=== PATIENT | female | born 1945 | race Caucasian/White ===

== ENCOUNTER → 2018-05-29 15:16 | Outpatient (CLI) | payer MEDICARE, SELFPAY ==
--- NOTE | 2018-05-29 15:18 | BI_ITS ---
MAMMOGRAPHY - BILATERAL SCREENING REASON FOR EXAM: Female, 72 years old. Routine annual screening examination. PERTINENT HISTORY: Sisters with breast cancer. TECHNIQUE: Digital bilateral breast erinn (3D mammographic acquisition) in the CC and MLO projections. 2-D mediolateral oblique (MLO) and craniocaudad (CC) views of both breasts were obtained. CAD: Full Field Digital Mammography with Computer Added Detection was performed. COMPARISON: Comparison is made with prior study dated November 13, 2016. FINDINGS: Breast Composition: There are scattered areas of fibroglandular density. There are no dominant masses or suspicious calcifications. No other significant abnormalities are identified. There has been no significant change since the prior study. BI/SCREENING MAMM (CAD), BILAT IMPRESSION: Stable bilateral screening mammogram. Yearly follow-up mammogram recommended. (A) ASSESSMENT CATEGORY: BIRADS Category 2: Benign. A letter regarding these results will be sent to the patient by the facility within 30 days. Approximately 10% of breast cancers are not detected by mammography. A normal mammogram should not delay biopsy of a clinically suspicious abnormality. [id number] Electronically Signed: Michael Dailey MD at 9:00 EST Tel [phone], Service support ,
--- OUTSIDE RECORDS SUMMARY | 2018-07-24 21:12 | XMS RPT_ITS | Continuity of Care Document ---
:1945 External Reference #:[id number] Author Organization [facility] Address [address] [address] [place] [address] Phone Care Team Providers Name Role Phone Serena Quiñonez CNP Unavailable Anette Connolly Unavailable Michael Duncan Unavailable Sienna ELLINGTON Logan Gómez Unavailable Slarb CREDIT CARD ANALYST, Cheryle Unavailable Unavailable Long CREDIT CARD ANALYST, Kalie L Unavailable Unavailable Unavailable Unavailable Problems Name Dates Details Abnormal TSH (R79.89, 790.6) Comments: TSH in Aug Status: Active Abortions/Miscarriages Comments: 1 miscarriage, 1st trimester Status: Active Acute sinusitis, unspecified (J01.90, 461.9) -Jul-2010 Status: Active Anxiety (F41.9, 300.00) Comments: use lorazepam prn Status: Active Blurry vision, bilateral (H53.8, 368.8) Comments: Will schedule appointment with opthamologist. Status: Active BMI 37.0-37.9, adult (Z68.37, V85.37) Status: Active Caregiver stress (Z63.6, V61.49) Status: Active CONSTIPATION NOS (K59.00, 564.00) Comments: stresshaving side effects of vesicare dry mouth, cant spit, cant have BM, was on vesicare, changed to detrol Status: Active Deliveries (Parity) Comments: 4 Status: Active Depressive disorder (F32.9, 311) Status: Active Elevated blood pressure reading (R03.0, 796.2) Status: Active Encounter for annual general medical examination with abnormal findings in adult (Z00.01, V70.0) Status: Active Encounter for Medicare annual wellness exam (Z00.00, V70.0) Status: Active Encounter for screening for malignant neoplasm of colon (Renamed from Special screening for malignant neoplasms, colon) (Z12.11, V76.51) Status: Active Encounter for screening mammogram for breast cancer (Renamed from Screening mammogram, encounter for) (Z12.31, V76.12) Status: Active Eyes sensitive to light (H53.149, 368.13) Status: Active Female cystocele (N81.10, 618.01) Status: Active FUNGUS, NOS Comments: rt great toe nail Status: Active GERD (gastroesophageal reflux disease) (K21.9, 530.81) Comments: on dexilant stable Status: Active Grieving (F43.21, 309.0) Status: Active Headache (R51, 784.0) Comments: resolving with massage and BP med Status: Active History of blood clots (Z86.718, V12.51) Status: Active History of pulmonary embolus (PE) (Z86.711, V12.55) Comments: would recommend xarelto 10mg po qd x12 start 6-10 hrs post-op once hemostatis established then extend days of xaralto post op will discuss with Dr. Hernandez Status: Active Hot flashes (N95.1, 627.2) Comments: rare Status: Active Hot flashes (N95.1, 627.2) Status: Active Hypercholesteremia (E78.00, 272.0) Status: Active Hypertension (I10, 401.9) Comments: usually good at home Status: Active Hypothyroidism (E03.9, 244.9) Comments: stable on synthroid 112mg daily Status: Active Impetigo (L01.00, 684) Status: Active Knee pain, bilateral (M25.561, 719.46) Comments: recent left knee surgery with hip pain and ongoing pain Status: Active Neck pain (M54.2, 723.1) Comments: history of ruptured disc, stenosis, oseteoarthritis of disc. Sees pain Dr. Coughlinhistory of ruptured disc Status: Active Nonsmoker (Z78.9, V49.89) Status: Active Nonsmoker (Z78.9, V49.89) Status: Active Obesity (E66.9, 278.00) Status: Active Osteoarthritis (M19.90, 715.90) Comments: stable on gabapentin seen at [facility] arthritis neck arthritis and knee pain , has seen Dr. Coughlin for neck pain for injectionwas seen at [facility] arthritis given gabapentinwas taking melox icam daily lead to gastric ulcer stopped meloxicam Status: Active Osteopenia (M85.80, 733.90) Status: Active Postmenopausal (Renamed from Postmenopausal status) (Z78.0, V49.81) Status: Active Pregnancies () Comments: 5 Status: Active Right leg swelling (M79.89, 729.81) Comments: elevate and support hose Status: Active Sore throat (J02.9, 462) Comments: strept negative her in office.willsend cx to confirm. told pt that. talk about may get worse with virall if not better in 7-10 days Status: Active Unspecified Diagnosis Status: Active Unspecified Diagnosis Status: Active Unspecified Diagnosis Status: Active Unspecified Diagnosis Status: Active Unspecified Diagnosis Status: Active Upper respiratory infection (J06.9, 465.9) Status: Active Urinary incontinence (R32, 788.30) Comments: stable on detrol 2mg bid Status: Active Wheezing (R06.2, 786.07) Status: Active Medications Name Dates Details Bacitracin Zinc 500 UNIT/GM External Ointment 1 (one) Application bid for 0 days Quantity: 4 {Applicator} Refills: 0 Ordered:24-Mar-2018 Serena Quiñonez CNP, CNP, Mary E Start : 24-Mar-2018 Active BusPIRone HCl 7.5 MG Oral Tablet 1 (one) Tablet bid for 0 days Quantity: 60 {Tablet} Refills: 1 Ordered:08-Apr-2018 Serena Quiñonez CNP, CNP, Mary E Start : 08-Apr-2018 Active Calcium 500 + D 500-125 MG-UNIT Oral Tablet 1 (one) Tablet Tablet daily for 0 days Quantity: 30 {Tablet} Refills: 0 Ordered:16-Oct-2017 Slarb Cheryle CRUM Start : 16-Nov-2016 Active LORazepam 1 MG Oral Tablet 1 (one) Tablet Tablet daily prn ONLY for 0 days Quantity: 30 {Tablet} Refills: 0 Ordered:08-Apr-2018 Olamide MARTINEZ, Serena Patton CNP, Serena Mcmanus Start : 08-Apr-2018 Active Comments:OARRS pdmkzumbR58.9f43.21Thirty Losartan Potassium 50 MG Oral Tablet 1 (one) Tablet daily for 30 days Quantity: 30 {Tablet} Refills: 6 Ordered:12-Feb-2018 Olamide MARTINEZ, Serena Patton CNP, Serena Mcmanus Start : 12-Feb-2018 End : 07-Jul-2017 Active MVI daily Active Synthroid 112 MCG Oral Tablet 1 Tablet hold on and Saturdays for 0 days Quantity: 30 {Tablet} Refills: 3 Ordered:13-Jan-2018 Olamide MARTINEZ, Serena Patton CNP, Serena Mcmanus Start : 13-Jan-2018 Active Comments:generic okay Tumeric daily Active VESIcare 10 MG Oral Tablet daily (10 MG) Active Comments:Rx by urology Xarelto 20 MG Oral Tablet 1 (one) Tablet Tablet take 1 6 hours prior to flight for 0 days Quantity: 2 {Tablet} Refills: 1 Ordered:10-Jan-2018 Long Kalie CRUM Start : 10-Jan-2018 Active ALEVE, 220MG (Oral Capsule) 1 (one) Capsule q8hrs prn for 0 days Quantity: 30 {Capsule} Refills: 0 Ordered:24-May-2014 RAMA Webster Start : 15-Mar-2014 End : 24-May-2014 Inactive ALIGN, 4MG (Oral Capsule) 1 Capsule daily for 0 days Quantity: 30 {Capsule} Refills: 0 Ordered:06-Aug-2013 RAMA Webster Start : 30-Mar-2013 End : 06-Aug-2013 Inactive ALTACE, 5MG (Oral Capsule) 1 qd for 0 days Refills: 0 Ordered:28-Sep-2011 Olamide MARTINEZ, Serena Patton CNP, Serena Mcmanus End : 28-Sep-2011 Inactive ASMANEX 30 METERED DOSES, 220MCG/INH (Inhalation Aerosol Powder Breath Activated) 2 puffs BID for 0 days Refills: 0 Ordered:17-Mar-2009 RAMA Webster End : 17-Mar-2009 Inactive BACTROBAN, 2% (External Ointment) 1 (one) Ointment Ointment bid for 0 days Quantity: 1 {Tube} Refills: 0 Ordered:16-Oct-2013 Abby Jones LPN Start : 06-Aug-2013 End : 16-Oct-2013 Inactive Biaxin 500 MG Oral Tablet 1 (one) Tablet Tablet BID for 10 days Quantity: 20 {Tablet} Refills: 0 Ordered:15-Aug-2016 Lupe CRUMCheryle Start : 15-Aug-2016 End : 25-Aug-2016 Inactive BIAXIN XL PAC, 500MG (Oral Tablet Extended Release 24 Hour) 2 (two) Tablet ER 24HR daily for 10 days Quantity: 20 {Tablet} Refills: 0 Ordered:09-Jun-2014 Brandishanamichelle MARTINEZ Serena Cabanmichelle MARTINEZ, Serena Mcmanus Start : 09-Jun-2014 End : 19-Jun-2014 Inactive CHONDROITIN SULFATE-VIT C-MN, 400-60-2.5MG (Oral Capsule) 1 (one) Capsule daily for 0 days Refills: 0 Ordered:17-Feb-2009 RAMA Webster Start : 17-Feb-2009 End : 17-Mar-2009 Inactive CIPROFLOXACIN HCL, 500MG (Oral Tablet) 1 (one) Tablet bid for 7 days Quantity: 14 {Tablet} Refills: 0 Ordered:27-Jun-2015 Jonathanmichelle MARTINEZ, Serena Patton MULTI SHARE PROGRAM COORDINATOR, Serena Mcmanus Start : 27-Jun-2015 End : 04-Jul-2015 Inactive CITRACAL/VITAMIN D, [id number] (Oral Tablet) 2 QD for 0 days Refills: 0 Ordered:03-Oct-2011 Abby Jones LPN End : 03-Oct-2011 Inactive CLARINEX REDITABS, 5MG (Oral Tablet Dispersible) 1 (one) Tablet Disperse daily for 0 days Quantity: 5 {Tablet_Disperse} Refills: 0 Ordered:06-Jul-2010 RAMA Webster Start : 05-Dec-2009 End : 06-Jul-2010 Inactive CORTISPORIN, 3.5-28243-5 (Otic Solution) 4 Solution Solution tid for 0 days Quantity: 1 {Bottle} Refills: 0 Ordered:16-Oct-2013 Abby Jones LPN Start : 11-Aug-2013 End : 16-Oct-2013 Inactive Cymbalta 30 MG Oral Capsule Delayed Release Particles 1 (one) Capsule Capsule PO Daily for 30 days Quantity: 30 {Capsule} Refills: 0 Ordered:30-Dec-2017 Annaleeambar JOHNSONBi Pinedaa Start : 30-Dec-2017 End : 29-Jan-2018 Inactive Detrol LA 2 MG Oral Capsule Extended Release 24 Hour 2 (two) Capsule ER 24HR qd for 30 days Quantity: 60 {Capsule} Refills: 0 Ordered:01-Oct-2017 Olamide MARTINEZ, Serena Patton CNP, Serena Mcmanus Start : 01-Oct-2017 End : 31-Oct-2017 Inactive DETROL LA, 4MG (Oral Capsule Extended Release 24 Hour) 1 Capsule ER 24HR qd for 0 days Quantity: 30 {Capsule_ER_24HR} Refills: 3 Ordered:26-Mar-2013 RAMA Webster Start : 18-Mar-2012 End : 26-Mar-2013 Inactive DEXILANT, 30MG (Oral Capsule Delayed Release) 1 (one) Capsule DR Capsule DR daily for 60 days Quantity: 30 {Capsule} Refills: 0 Ordered:14-Oct-2015 Olamide MARTINEZ, Serena Patton CNP, Serena Mcmanus Start : 14-Oct-2015 End : 13-Dec-2015 Inactive DOXYCYCLINE HYCLATE, 100MG (Oral Tablet Delayed Release) [address] bid for 7 days Quantity: 14 {Tablet_DR} Refills: 0 Ordered:30-Mar-2013 Olamide MARTINEZ, Serena Patton CNP, Serena Mcmanus Start : 30-Mar-2013 End : 06-Apr-2013 Inactive Comments:take with food ESCITALOPRAM OXALATE, 10MG (Oral Tablet) 1 (one) Tablet daily for 0 days Quantity: 90 {Tablet} Refills: 2 Ordered:15-Nov-2008 RAMA Webster Start : 15-Nov-2008 End : 17-Mar-2009 Inactive FISH OIL, 1000MG (Oral Capsule) 1 (one) Capsule daily for 0 days Refills: 0 Ordered:03-Oct-2011 Abby Jones LPN Start : 17-Feb-2009 End : 03-Oct-2011 Inactive FLEXERIL, 10MG (Oral Tablet) 1 Tablet q8hrs prn for 0 days Quantity: 30 {Tablet} Refills: 0 Ordered:20-Jun-2012 Abby Jones LPN Start : 30-Apr-2012 End : 20-Jun-2012 Inactive GABAPENTIN, 100MG (Oral Capsule) 1 -2 Capsule tid as needed for 30 days Refills: 0 Ordered:15-Aug-2015 Olamide MARTINEZ, Serena Wilks CNP Start : 27-Jun-2015 End : 27-Jul-2015 Inactive Comments:Medication taken as needed. GUAIATUSSIN AC, 100-10MG/5ML (Oral Syrup) 1 Syrup 1 tsp qhs as needed for 0 days Quantity: 6 {Ounce(s)} Refills: 0 Ordered:03-Nov-2012 AldochulaAstera Start : 29-Sep-2012 End : 03-Nov-2012 Inactive Comments:Medication taken as needed. HYDROCODONE-ACETAMINOPHEN, 5-325MG (Oral Tablet) 1 (one) Tablet q hs for 30 days Quantity: 30 {Tablet} Refills: 0 Ordered:18-Nov-2015 Olamide MARTINEZ, Serena Wilks CNP Start : 14-Oct-2015 End : 13-Nov-2015 Inactive LEVAQUIN, 500MG (Oral Tablet) 1 Tablet daily for 10 days Quantity: 10 {Tablet} Refills: 0 Ordered:01-Oct-2012 Olamide MARTINEZ, Serena Wilks CNP Start : 01-Oct-2012 End : 11-Oct-2012 Inactive Comments:void after 30 days LEXAPRO, 10MG (Oral Tablet) 1 Tablet QD for 0 days Quantity: 10 {Tablet} Refills: 0 Ordered:09-Jul-2011 RAMA Webster Start : 09-Jul-2011 End : 09-Jul-2011 Inactive LISINOPRIL, 10MG (Oral Tablet) 1 (one) Tablet(s) daily for 0 days Quantity: 30 {Tablet} Refills: 6 Ordered:28-Sep-2011 Olamide MARTINEZ, Serena Patton CNP, Serena Mcmanus Start : 10-May-2010 End : 28-Sep-2011 Inactive MOBIC, 7.5MG (Oral Tablet) 1 Tablet QD for 0 days Quantity: 14 {Tablet} Refills: 0 Ordered:15-Sep-2012 Kalie Crowe LPN Start : 15-Sep-2012 End : 15-Sep-2012 Inactive NABUMETONE, 750MG (Oral Tablet) 2 QD for 0 days Refills: 0 Ordered:17-Mar-2009 RAMA Webster End : 17-Mar-2009 Inactive NAPROSYN, 500MG (Oral Tablet) 1 Tablet daily once for 0 days Quantity: 30 {Tablet} Refills: 0 Ordered:28-Sep-2011 Branditim MICHELLE, Serena Patton MULTI SHARE PROGRAM COORDINATOR, Serena Mcmanus Start : 08-Aug-2010 End : 28-Sep-2011 Inactive NYSTOP, [id number]/GM (External Powder) Powder take as directed for 0 days Quantity: 1 {Powder} Refills: 0 Ordered:06-Jul-2010 RAMA Webster Start : 15-Apr-2009 End : 06-Jul-2010 Inactive PREDNISONE, 20MG (Oral Tablet) 1 Tablet bid x 2 days for 0 days Quantity: 4 {Tablet} Refills: 0 Ordered:03-Nov-2012 Millie Zimmer Start : 01-Oct-2012 End : 03-Nov-2012 Inactive PROVENTIL HFA, 108 (90 Base)MCG/ACT (Inhalation Aerosol Solution) 2 (two) Puff(s) QID/PRN for 0 days Quantity: 1 {Aerosol_Soln} Refills: 0 Ordered:20-Jun-2012 Abby Jones LPN Start : 05-Dec-2009 End : 20-Jun-2012 Inactive QNASL, 80MCG/ACT (Nasal Aerosol Solution) 2 (two) Puff(s) daily for 7 days Refills: 0 Ordered:15-Jul-2012 Branditim MICHELLE, Serena Patton MULTI SHARE PROGRAM COORDINATOR, Serena Mcmanus Start : 20-Jun-2012 End : 27-Jun-2012 Inactive TAMIFLU, 75MG (Oral Capsule) 1 (one) Capsule bid for 5 days Quantity: 10 {Capsule} Refills: 0 Ordered:05-Aug-2007 Dana Johnson Start : 05-Aug-2007 End : 11-Aug-2007 Inactive TERBINAFINE HCL, 250MG (Oral Tablet) 1 Tablet daily for 0 days Quantity: 30 {Tablet} Refills: 2 Ordered:20-Jun-2012 Abby Jones LPN Start : 16-Nov-2011 End : 20-Jun-2012 Inactive TOLTERODINE TARTRATE, 4MG (Oral Capsule Extended Release 24 Hour) 1 (one) Capsule ER 24HR daily for 0 days Quantity: 90 {Capsule_ER_24HR} Refills: 3 Ordered:15-Nov-2008 RAMA Webster Start : 15-Nov-2008 End : 17-Mar-2009 Inactive TYLENOL ARTHRITIS PAIN, 650MG (Oral Tablet Extended Release) 1 (one) Tablet ER q 4 hrs for 30 days Refills: 0 Ordered:18-Nov-2015 Olamide MARTINEZ, Serena Patton CNP, Serena Mcmanus Start : 14-Oct-2015 End : 13-Nov-2015 Inactive VESICARE, 5MG (Oral Tablet) 1 Tablet qd for 0 days Quantity: 30 {Tablet} Refills: 3 Ordered:09-Oct-2010 Abby Jones LPN Start : 18-Sep-2010 End : 09-Oct-2010 Inactive VICODIN, 5-500MG (Oral Tablet) 1 q4-6/PRN for 0 days Refills: 0 Ordered:17-Mar-2009 RAMA Webster End : 17-Mar-2009 Inactive VITAMIN C, 100MG (Oral Tablet Chewable) 1 QD for 0 days Refills: 0 Ordered:20-Jun-2012 Abby Jones LPN End : 20-Jun-2012 Inactive ALTACE, 5MG (Oral Capsule) 1 Capsule qd for 0 days Quantity: 30 {Capsule} Refills: 6 Ordered:10-Nov-2008 Olamide MULTI SHARE PROGRAM COORDINATOR, Serena Patton CNP, Serena Mcmanus Start : 10-Nov-2008 End : 10-Nov-2008 Discontinued ANTIVERT, 25MG (Oral Tablet) 1 Tablet q 8 hr prn for 0 days Quantity: 60 {Tablet} Refills: 0 Ordered:16-Nov-2011 Kim Guzman RN Start : 19-Jul-2011 End : 16-Nov-2011 Discontinued Comments:sixty Benzonatate 200 MG Oral Capsule 1 (one) Capsule tid as needed for 0 days Quantity: 30 {Capsule} Refills: 0 Ordered:02-Nov-2016 Cheryle Andrade LPN Start : 15-Aug-2016 End : 02-Nov-2016 Discontinued Comments:Medication taken as needed. BIAXIN XL, 500MG (Oral Tablet Extended Release 24 Hour) 2 (two) Tablet ER 24HR qd for 0 days Quantity: 20 {Tablet_ER_24HR} Refills: 0 Ordered:03-May-2008 Louise Trujillo Start : 03-May-2008 End : 18-Oct-2008 Discontinued Cheratussin AC 100-10 MG/5ML Oral Solution 1-2 Teaspoon q6hrs prn cough for 0 days Quantity: 6 {Ounce} Refills: 0 Ordered:02-Nov-2016 Cheryle Andrade LPN Start : 17-Aug-2016 End : 02-Nov-2016 Discontinued COUMADIN, 1MG (Oral Tablet) 1 Tablet UAD for 0 days Quantity: 30 {Tablet} Refills: 5 Ordered:18-Oct-2008 Olamide MARTINEZ, Serena Patton CNP, Bren Start : 18-Oct-2008 End : 18-Oct-2008 Discontinued Comments:disp.#100 with3 refills COUMADIN, 2MG (Oral Tablet) 11/2 Tablet QD for 0 days Quantity: 30 {Tablet} Refills: 5 Ordered:11-Nov-2008 Olamide MARTINEZ, Serena Patton CNP, Bren Start : 11-Nov-2008 End : 11-Nov-2008 Discontinued Dexilant 60 MG Oral Capsule Delayed Release [address] Capsule DR daily for 0 days Quantity: 21 {Capsule} Refills: 0 Ordered:02-Nov-2016 Cheryle Andrade LPN Start : 13-Jul-2016 End : 02-Nov-2016 Discontinued DOXYCYCLINE HYCLATE, 100MG (Oral Capsule) Capsule BID for 0 days Quantity: 28 {Capsule} Refills: 0 Ordered:11-Mar-2008 Dana Johnson Start : 11-Mar-2008 End : 03-May-2008 Discontinued FLUOXETINE HCL, 20MG (Oral Capsule) 1 Capsule qd for 0 days Quantity: 30 {Capsule} Refills: 3 Ordered:27-Jun-2015 Cheryle Andrade LPN Start : 28-Mar-2015 End : 27-Jun-2015 Discontinued LAC-HYDRIN, 12% (External Cream) Cream bid for 0 days Quantity: 1 {Cream} Refills: 3 Ordered:27-May-2007 Dana Johnson Start : 27-May-2007 End : 11-Mar-2008 Discontinued MELOXICAM, 7.5MG (Oral Tablet) 1 (one) Tablet daily for 0 days Quantity: 30 {Tablet} Refills: 0 Ordered:15-Dec-2014 Cheryle Andrade LPN Start : 11-May-2014 End : 15-Dec-2014 Discontinued Comments:take with food MOBIC, 15MG (Oral Tablet) 1 Tablet qd prn for 0 days Quantity: 30 {Tablet} Refills: 3 Ordered:02-Mar-2015 Cheryle Andrade LPN Start : 21-Feb-2015 End : 02-Mar-2015 Discontinued Comments:with food MUCINEX ALLERGY, 180MG (Oral Tablet) 1 (one) Tablet daily for 0 days Quantity: 30 {Tablet} Refills: 0 Ordered:15-Feb-2015 Cheryle Andrade LPN Start : 15-Dec-2014 End : 15-Feb-2015 Discontinued MULTIVITAMIN (PO Chew Tab) 1 QD for 0 days Refills: 0 Ordered:20-Jun-2012 Abby Jones LPN End : 20-Jun-2012 Discontinued Comments:This order discontinued per [facility]. OXYCODONE HCL, 5MG (Oral Tablet) 1 (one) Tablet q8hrs prn for 0 days Quantity: 30 {Tablet} Refills: 0 Ordered:27-Jun-2015 Cheryle Andrade LPN Start : 09-Mar-2015 End : 27-Jun-2015 Discontinued PredniSONE 10 MG Oral Tablet 1 (one) Tablet 1 bid x 3 days, 1 daily x 3 days, 1/2 x3 days for 0 days Quantity: 12 {Tablet} Refills: 0 Ordered:02-Nov-2016 Cheryle Andrade LPN Start : 17-Aug-2016 End : 02-Nov-2016 Discontinued Comments:with food PRILOSEC, 20MG (Oral Capsule Delayed Release) 1 (one) Capsule DR daily for 0 days Quantity: 30 {Capsule} Refills: 0 Ordered:02-Mar-2015 Cheryle Andrade LPN Start : 15-Feb-2015 End : 02-Mar-2015 Discontinued ProAir HFA 108 (90 Base) MCG/ACT Inhalation Aerosol Solution 2 (two) Puff(s) tid prn for 0 days Quantity: 1 {Inhaler} Refills: 0 Ordered:02-Nov-2016 Cheryle Andrade LPN Start : 17-Aug-2016 End : 02-Nov-2016 Discontinued PROZAC, 20MG (Oral Capsule) 1 Capsule daily for 30 days Quantity: 30 {Capsule} Refills: 6 Ordered:15-Dec-2014 Cheryle Andrade LPN Start : 20-Feb-2013 End : 15-Dec-2014 Discontinued TESSALON PERLES, 100MG (Oral Capsule) 1 (one) Capsule tid for 0 days Quantity: 30 {Capsule} Refills: 0 Ordered:11-Aug-2007 Dana Johnson Start : 11-Aug-2007 End : 06-Nov-2007 Discontinued TOPICORT, 0.25% (External Cream) 1 (one) Cream bid for 0 days Quantity: 1 {Tube} Refills: 0 Ordered:02-Nov-2014 Slarb CREDIT CARD ANALYST, Cheryle Start : 30-Jun-2014 End : 02-Nov-2014 Discontinued TYLENOL WITH CODEINE #3, 300-30MG (Oral Tablet) 1 (one) Tablet q6-8 hrs prn for 0 days Quantity: 30 {Tablet} Refills: 0 Ordered:27-Jun-2015 Slarb CREDIT CARD ANALYST, Cheryle Start : 11-Mar-2015 End : 27-Jun-2015 Discontinued TYLENOL, 325MG (Oral Tablet) 1 PRN for 0 days Refills: 0 Ordered:27-Jun-2015 Slarb CREDIT CARD ANALYST, Cheryle Start : 02-Mar-2015 End : 27-Jun-2015 Discontinued Allergies and Adverse Reactions Name Dates Details Darvocet-N 100 *ANALGESICS - OPIOID* (Allergy) Status: Active Comments: Nausea Penicillins (Allergy) Status: Active Sulfa Drugs (Allergy) Status: Active Past Medical History Name Dates Details Abdominal pain (R10.9, 789.00) Comments: epigastric, rt upper and left flank Status: Resolved as of 12-Jul-2015 Abdominal pain, acute, left lower quadrant (R10.32, 789.04) Comments: think related to cellulitis but Dr. jules wanted me to check for vein clot in abd Status: Inactive as of 01-Dec-2008 Abdominal pain, acute, right upper quadrant (R10.11, 789.01) Status: Inactive as of 24-May-2014 Abnormal blood chemistry (R79.9, 790.6) Status: Inactive as of 26-Mar-2013 Allergic rhinitis due to other allergen (J30.89, 477.8) Status: Resolved as of 12-Jul-2015 Benign paroxysmal positional vertigo (H81.10, 386.11) Status: Inactive as of 26-Mar-2013 BMI 37.0-37.9, adult (Z68.37, V85.37) Status: Inactive as of 16-Oct-2017 BMI 38.0-38.9,adult (Z68.38, V85.38) Status: Inactive as of 16-Oct-2017 BMI 40.0-44.9, adult (Z68.41, V85.41) Status: Inactive as of 16-Oct-2017 Bronchitis (J40, 490) Status: Inactive as of 26-Mar-2013 Cellulitis (L03.90, 682.9) Comments: right abd with abcess--looks better some on atb, may need to reopen if regress into another abcess right now better Status: Inactive as of 01-Dec-2008 Cough (R05, 786.2) Status: Inactive as of 26-Mar-2013 Cough (R05, 786.2) Comments: remains on biaxinhistory if PE Status: Resolved as of 02-Nov-2016 Cramp in lower leg (R25.2, 729.82) Status: Inactive as of 12-Jul-2015 Dizziness and giddiness (R42, 780.4) Status: Inactive as of 26-Mar-2013 Elevated d-dimer (R79.89, 790.92) Status: Inactive as of 12-Jul-2015 Epigastric abdominal tenderness (R10.816, 789.66) Comments: likely gastritis Status: Inactive as of 02-Nov-2016 Epigastric Pain (R10.13, 789.06) Comments: severegave GI cocktail with some partial relief Status: Inactive as of 24-May-2014 External otitis of right ear (H60.91, 380.10) Status: Inactive as of 12-Jul-2015 Fatigue (R53.83, 780.79) Status: Resolved as of 12-Jul-2015 Flank pain (R10.9, 789.09) Status: Resolved as of 12-Jul-2015 Flank pain (R10.9, 789.09) Status: Inactive as of 12-Jul-2015 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 consider ENT if worsen Status: Inactive as of 01-Dec-2008 Gastric ulcer (K25.9, 531.90) Status: Resolved as of 12-Jul-2015 Gastritis (K29.70, 535.50) Comments: mild followed by Dr. Laguna. Status: Inactive as of 02-Nov-2016 Gastritis, acute (K29.00, 535.00) Status: Inactive as of 26-Mar-2013 Headache (R51, 784.0) Comments: migraine vs muscle strain Status: Inactive as of 12-Jul-2015 Hypertension (I10, 401.9) Status: Resolved as of 12-Jul-2015 Influenza due to influenza A virus with upper respiratory signs (J11.1, 487.1) Comments: suspect Flu will empiracally treat Status: Resolved as of 16-Dec-2008 Itching (L29.9, 698.9) Status: Inactive as of 24-May-2014 Knee pain (M25.569, 719.46) Comments: Not improving, get MRIslipped on floor 6 wks ago, went to ER, stillwith pain and pain med 3x day, not improving Status: Inactive as of 26-Mar-2013 Knee pain, right (M25.561, 719.46) Comments: on Rt knee Status: Inactive as of 12-Jul-2015 Lesion of external auditory canal (H61.90, 380.9) Comments: only been few days hopefully pimple healing or scrap. will treat with bactroban not better in 2 week then to ENT Status: Inactive as of 12-Jul-2015 Limb pain (M79.609, 729.5) Status: Inactive as of 24-May-2014 senior care (current) use of anticoagulants (Z79.01, V58.61) Status: Inactive as of 26-Mar-2013 Myalgia and myositis (729.1) Comments: resolved Status: Inactive as of 12-Jul-2015 Nausea (R11.0, 787.02) Status: Inactive as of 02-Nov-2016 Neoplasm of uncertain behavior of skin (D48.5, 238.2) Status: Inactive as of 06-Aug-2013 Other and unspecified disorders of circulatory system (I99.9, 459.9) Status: Inactive as of 26-Mar-2013 Other chest pain (R07.89, 786.59) Status: Inactive as of 12-Jul-2015 Other chest pain (R07.89, 786.59) Comments: resolved on naproxan, with relief was not using muscle relaxantcardiac tests negchest mid sternal neck back pain resolved Status: Inactive as of 26-Mar-2013 Other pulmonary embolism and infarction (I26.99, 415.19) Status: Inactive as of 16-Dec-2008 Other seborrheic keratosis (L82.1, 702.19) Comments: reassurrance Status: Inactive as of 16-Dec-2008 Other specified disorders of skin (L98.8, 709.8) Status: Inactive as of 26-Mar-2013 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 (C44.390, 173.39) Status: Inactive as of 26-Mar-2013 Other specified viral infection, in conditions classified elsewhere and of unspecified site (B97.89, 079.89) 10-May-2010 Status: Inactive as of 26-Mar-2013 Preop examination (Z01.818, V72.84) Comments: for left knee replacement TKA Status: Inactive as of 02-Nov-2016 Rash (R21, 782.1) Comments: ? contact dermatitis vs shingles will try steroid cream Status: Inactive as of 12-Jul-2015 Screening for deficiency anemia (Z13.0, V78.1) Status: Inactive as of 26-Mar-2013 Screening for hyperlipidemia (Z13.220, V77.91) Status: Inactive as of 26-Mar-2013 Sinusitis, chronic (J32.9, 473.9) Status: Resolved as of 02-Nov-2016 Skin irritation (R23.8, 709.9) Comments: from removal os skin tag Status: Inactive as of 06-Aug-2013 SOB (shortness of breath) on exertion (R06.02, 786.05) Status: Inactive as of 26-Mar-2013 superficial thrombophlebitis Comments: pt feeel did best asa not coumadin. been very active. working. still some pain in right leg. will come off coumadin to asa 2 325mg a day. if worsen then will go to high dose coumadin. Status: Resolved as of 16-Dec-2008 Syncope (R55, 780.2) Status: Inactive as of 05-Aug-2006 Toe pain, left (M79.675, 729.5) Status: Inactive as of 12-Jul-2015 Unspecified Diagnosis Status: Inactive as of 26-Mar-2013 Unspecified Diagnosis Status: Inactive as of 26-Mar-2013 Unspecified Diagnosis Status: Inactive as of 01-Dec-2008 Unspecified Diagnosis Status: Inactive as of 01-Dec-2008 Unspecified Diagnosis Status: Inactive as of 26-Mar-2013 Unspecified menopausal and perimenopausal disorder (N95.9, 627.9) Status: Inactive as of 12-Jul-2015 Urinary incontinence, unspecified type (R32, 788.30) Status: Inactive as of 26-Mar-2013 UTI symptoms (R39.9, 788.99) Status: Inactive as of 12-Jul-2015 Wheeze (R06.2, 786.07) Status: Resolved as of 02-Nov-2016 WWV V70.0 Status: Inactive as of 01-Dec-2008 Procedures Procedure Dates Details Appendectomy Completed Colonoscopy Completed Comments: 09/02 Hysterectomy; Abdominal Completed Knee Replacement, Total Completed Comments: Left Aug [address] Michele Sigmoidoscopy Completed Comments: 05/01 Date Value Details 13-Nov-2016 Dexa Bone Density Study (HP) Result: Comments: See Note; NOTES: [facility] Imaging Services [address] [place] [address] Ver[place] 4d Dexa Bone Density Study (HP) MR#: [id number] Acct: [id number] Name: EVENS SERRANO Rep #: [id number] : 1945 F 71 From: Michael Noland MD PCP: Serena Quiñonez Status: [facility] Study: Dexa Bone Density Study (HP) Date of Exam: 11/13/16 Exam# [id number] Ordering Dr: Kyle Quiñonez STUDY: DUAL ENERGY X-RAY ABSORPTIOMETRY / DXA REASON FOR EXAM: Female, 71 years old. Early menopause. Loss of height. TECHNIQUE: Bone Mineral Density (BMD) measurements of lumbar spine and bilat eral hips were obtained. COMPARISON: None. FINDINGS: Lumbar Spine (L1-L4): g/cm2 (1.315) / T-score (1.2) / Z-score (3.0) Findings are suggestive of normal bone den sity with a low fracture risk. Left Femur Total: g/cm2 (0.934) / T-score (-0.6) / Z-score (1.0) Left Femoral Neck: g/cm2 (0.781) / T-score (-1.9) / Z-score (0.0) Right Femur Total: g/cm2 (1.030) / T-sc ore (0.2) / Z-score (1.8) Right Femoral Neck: g/cm2 (0.870) / T-score (-1.2) / Z-score (0.6) HPBD/Dexa Bone Density Study (HP) IMPRESSION: The pa tient is considered osteopenic at the level of the femoral neck as outlined below according to World Ronaldo Organization (WHO) criteria with a moderate fracture risk. Reference Information: The T-score is the number of standard deviations above or below the standard which is normal for young adults at their peak bone mineral density. The World Health Organization ( WHO) interprets the T-scores as follows: Above -1 Normal bone density Between -1 and -2.5 Osteopenia Equal to / or below -2.5 Osteoporosis As a practical clinical guideline, osteopenia may be graded a s follows: Mild -1 through -1.5 Moderate -1.6 through -2.0 Severe -2.1 through -2.4 The Z-score is the number of standard deviations above or below age- matched controls. A Z-score of less than -1.5 wou ld be considered abnormal. References: 1. NIH Osteoporosis and Related Bone Diseases http://www.osteo.org 2. International Society for Clinical Densitometry http://www.iscd.org 3. National Osteoporosis Foundation http://www.nof.org Electronically Signed: Michael Noland MD at 7:57 EDT Tel [phone], Service support , CC: Serena Ciesa [employer] Boat Captain: Signed 13-Nov-2016 SCREENING MAMM (CAD), BILAT Result: Comments: See Note; NOTES: [facility] Imaging Services [address] [place] [address] Demian 4d SCREENING MAMM (CAD), BILAT MR#: [id number] Acct: [id number] Name: TRINI SERRANO Rep #: [id number] : 1945 F 71 From: Michael Noland MD PCP: Serena Quiñonez Status: REG CLI Study: SCREENING MAMM (CAD), BILAT Date of Exam: 11/13/16 Exam# [id number] Ordering Dr: Yudith Quiñonez y MAMMOGRAPHY - BILATERAL SCREENING REASON FOR EXAM: Female, 71 years old. Routine annual screening examination. PERTINENT HISTORY: Non-contributory. TECHNIQUE: Digital bilateral breast erinn (3D ma mmographic acquisition) in the CC and MLO projections. 2-D mediolateral oblique (MLO) and craniocaudad (CC) views of both breasts were obtained. CAD: Full Field Digital Mammography with Computer Added D etection was performed. COMPARISON: None. Baseline examination. FINDINGS: Breast Composition: There are scattered areas of fibroglandular density. There are no dom inant masses or suspicious calcifications. Scattered benign appearing bilateral calcifications. No other significant abnormalities are identified. 36 HPBI/SCREENING MAMM (CAD), BILAT IMPRESSION: Negative screening mammogram. Yearly followup mammogram recommended. (A) ASSESSMENT CATEGORY: BIRADS Category 2: David ign. A letter regarding these results will be sent to the patient by the facility within 30 days. Approximately 10% of breast cancers are not detected by mammography. A normal mammogram should not alejandra y biopsy of a clinically suspicious abnormality. [id number] Electronically Signed: Michael Noland MD at 8:11 EDT Tel [phone], Service support , CC: Serena Quiñonez [employer] Boat Captain: Signed 17-Aug-2016 Chest PA and Lateral Result: Comments: See Note; NOTES: [facility] Imaging Services [address] [place] [address] Verdana 4d Chest PA and Lateral MR#: [id number] Acct: [id number] Name: MAURICIO SERRANO p #: [id number] : 1945 F 71 From: Michael Nolnad MD PCP: Micki Cruz MD Status: REG CLI Study: Chest PA and Lateral Date of Exam: 08/17/16 Exam# [id number] Ordering Dr: Serena Quiñonez STUDY: X-RAY CHEST REASON FOR EXAM: Female, 71 years old. Fever cough and chest congestion. TECHNIQUE: PA and lateral views of the chest. COMPARISON: None. FINDINGS: T he lungs are clear and expanded. Scattered calcified granulomas. There is no demonstrated pleural abnormality. Normal size heart. Normal mediastinum and nadia. Normal visualized pulmonary arteries. Norm al visualized aortic arch and descending thoracic aorta. There are mild degenerative changes of the visualized thoracic spine. Normal visualized ribs, clavicles, and shoulders. There is no demonstrate d abnormality of the visualized soft tissue structures of the upper abdomen. RAD/Chest PA and Lateral IMPRESSION: No acute abnormality is seen. Electronically Signed: Michael Noland MD at 14:44 EST Tel [phone], Service support [phone], CC: Serena Quiñonez; Micki Cruz MD [employer] Boat Captain: Signed 03-Oct-2015 PT D/C Summary (1) Result: Comments: See Note; NOTES: [facility] [address] [place] [address] Fax REHABILITATION SE [facility] DISCHARGE SUMMARY MR#: [id number] Acct: [id number] Name: MAURICIO SERRANO Rep #: [id number] : 1945 70 From: Bolivar PERRINT, OCS, CSCS Referring Dr.: OUT OF TOWN DOCTOR Status: REG RCR Eval Date: Discharge Date: HP - PT D/C Summary It has been my pleasure to treat MAURICIO SERRANO under orders from Out [facility] Doctor, SARATH HERNANDEZ for the diagnosis of L Knee TKA f or a total of 15 visit(s). Please see the following information for a summary of their discharge status. - Subjective Subjective: Doc says doing well. No pain today. Feels like pins at times. Good ROM. Exercises at home 3x/week. Working hard and activities close to normal. Stopped using cane out and about recently and doing OK. No falls. Steps are going well. Taking meds at night to sleep. Paty dy to be done with PT. - Pain L knee pain Pain Intensity (Out of 10): 3 - Objective Objective/Function: 0-110 AROM L knee. gait is good without deviations. steps reciprocally with one rail. - Goals Goal 1:: 0-110 AROM L knee to facilitate steps adn function. Goal Progress: Progressing Goal 2:: Pain in L knee 0-1/10 at all times. Goal Progress: Goal Met Goal 3:: Walk in community wit hoout need for AD. Goal Progress: Goal Met Goal 4:: Sleep without waking due to pain Goal Progress: with meds Goal 5:: Pt feel back to all basic ADLs and community ambulation without limitations Go al Progress: Goal Met - Plan Plan: D/C to pool and HEP. - D/C Information Discharge Comments: D/C to pool and HEP. Doing well. If there are questions or concerns regarding this patient's physical therapy, please feel free to call me at [phone]. Thank you for the referral of this patient. Sincerely, Bolivar Newell <Electronically signed by Bolivar Newell DPT, OCS, CSCS> 10/14 0646 CC: SARATH HERNANDEZ; Micki Cruz MD; OUT OF TOWN DOCTOR EBG Signed 09-Sep-2015 Re-Evaluation - PT (1) Result: Comments: See Note; NOTES: [facility] [address] [place] [address] Fax REEVALUATION / ME DICARE RECERTIFICATION [place] 4d PHYSICAL THERAPY MR#: [id number] Acct: [id number] Name: MAURICIO SERRANO Rep #: [id number] : 1945 70 From: Bolivar Newell DPT, OCS, CSCS Referring DrPaxton: SHAHNAZ Knox [facility] DOCTOR Status: REG RCR Insurance: TheySay Out of [facility] Doctor, SARATH HERNANDEZ It has been my pleasure to treat MAURICIO SERRANO over the last 11 visits for L Knee TKA. Please see the progress note below for an update on the physical therapy plan of care! Subjective: Stiff causes discomfort but not painful lately. Had pain at 4/10 yesterday. Climbed steps yesterday for the first time and slep 9 hours last night. Basic ADLs are OK, shoes on without shoehorn today. Cooked meals and did laundry with a little increased time today. Sitting at desk is uncom fortable. Objective/Function: steps reciprocally with two rails and weak and stiff on R but can do it. 0 -101 degrees AROM. gait is good and without deviations, using cane for short distances. Weaknes s noted on steps with eccentric control and stiffness on steps is obvious. Plan Plan: Pt wishes to work herself in pool for next two weeks and then f/u with PT despite my encouragement that 2 more w eeks would be idea. I emphasized knee ROM, stretching and scar massage as well as strengthening in the pool and on the steps. Will f/u in 2-3 weeks to ensure progress. Goals Goal 1:: 0-110 AROM L kn ee to facilitate steps adn function. Goal Time Frame: 4-6 Weeks Goal Progress: Progressing Goal 2:: Pain in L knee 0-1/10 at all times. Goal Time Frame: 4-6 Weeks Goal Progress: Progressing Goal 3 :: Walk in community withoout need for AD. Goal Time Frame: 4-6 Weeks Goal Progress: Progressing Goal 4:: Sleep without waking due to pain Goal Time Frame: 4-6 Weeks Goal Progress: Progressing Goa l 5:: Pt feel back to all basic ADLs and community ambulation without limitations Goal Time Frame: 4-6 Weeks Goal Progress: Progressing Anticipated Interventions Patient/Client Instruction: Educate patient on: Condition, Plan of Care Comments: HEP, management of condition, Therapeutic Exercise to Include: Strength training, Flexibilty training, Gait and locomotor training, Passive ROM, Active ROM Manual Therapy Techniques to Include: Mobilization, Soft tissue mobilization Comment: as needed STM and patellar mobs Cryotherapy (ice pack, ice massage): Yes - L knee Please do not hesitate to contact me at [phone] by phone or if you have questions or concerns regarding this new plan of care! Sincerely, Bolivar Newell <Electronically signed by Bolivar Newell DPT, OCS, CSCS> 09/09/15 0653 CC: SARATH HERNANDEZ; Micki Cruz MD; OUT OF TOWN DOCTOR EB Signed For Medicare only, by signing this I certify the plan of ca re. Physicians Signature Date 18-Aug-2015 Discharge Instruction Result: Comments: See Note; NOTES: [facility] Medical Records Department [address] [place] [address] Discharge Instruction 08/14/152021 MR#: [id number] Acct: [id number] Name: KRISTAQIMAURICIO Rep #: [id number] : 1945 70 From: Logan Keen MD PCP: Micki Cruz MD Status: DEP ER ED Disposition - Plan for ED Patient: Chief Complaint: Lower Extremity Injury Instructions: ED Dyspnea What to do if you have Problems For any increased pain, shortness of breath, bleeding, nausea or vomiting, chest pain, or any unexpected problems, contact your do ctor. Call [facility] ([phone]) or report to the closest Emergency Room. Call 911 if necessary. 08/18/15 0746 <Electronically signed by Logan Keen MD> Date ____ Logan Keen MD Cosigner Signature (If Indicated): Date CC: Micki Cruz MD 18-Aug-2015 Emergency Department Summary Result: Comments: See Note; NOTES: [facility] Medical Records Department [address] [place] [address] Emergency Department Summary MR#: [id number] Acct: [id number] Name: MAURICIO SERRANO Rep #: [id number] : 1945 70 From: Logan Keen MD PCP: Micki Cruz MD Status: DEP ER DATE OF SERVICE: 08/14/2015 CHIEF COMPLAINT: Shortness of breath, leg swelling. HISTORY OF PRESENT ILLNESS: A 70-year-old female who is 5 days status post left total knee repair done at [facility], presents with shortness of breath and leg swelling. The patient states she has bee n in normal state of health. She has been on a subQ Lovenox for DVT prophylaxis after her surgery. States she laid down, woke up and noticed that her lower extremity was swollen more than usual and t hen she started to have some shortness of breath and rattling in her chest. She states she had similar symptoms 5 years ago after her right knee repair and was found to have a pulmonary embolus. She i s concerned that this may have been the recurrence. She has been compliant with Lovenox, has not missed any doses. She denies fevers or chills. She denies any chest pain. PHYSICAL EXAMINATION: ANA LUISA L SIGNS: Afebrile. Vitals unremarkable. GENERAL: Well-appearing female in no acute distress. HEENT: Head is normocephalic, atraumatic. Pupils are equal, round and reactive. Extraocular muscles intact . NECK: Supple. HEART: Regular rate and rhythm. LUNGS: Diminished in the bases. ABDOMEN: Soft, nontender, nondistended. EXTREMITIES: 2+ edema of the left lower extremity. Postoperative site is cameron n, dry and intact. There is some old blood, but no erythema. No evidence of cellulitis. There are no palpable cords. The patient has normal pulses. EMERGENCY DEPARTMENT COURSE: The patient is on th erapeutic Lovenox. My suspicion for PE or DVT is very low, but she has had recurrent PE with prior surgery. She was complaining of dyspnea, so I did do a CTA of her chest. Screening labs were obtained and were unremarkable. CTA shows no evidence of large pulmonary embolus. Given the Lovenox and lack of pulmonary embolus, I do not feel further investigation as needed for DVT. At this time, I feel t his is all postoperative edema. The patient is comfortable with plan of care and will be discharged to follow up with orthopedic surgeon as scheduled. Return with any worsening symptoms. IMPRESSION: 1. Dyspnea, status post surgery. 2. Postoperative wound check. DISPOSITION: Discharge. Logan Keen MD T: NTS JOB: [id number] 08/18/15 0746 <Electronically signed by Logan stovall MD> Date Logan Keen MD Cosigner Signature (If Indicated): Date CC: Micki christine MD Date Dictated: 08/14/152021 Date Transcribed: 08/14/152021 Ocean [employer]am Boat Captain: Signed 14-Aug-2015 CTA Chest W/WO Contrast Result: Comments: See Note; NOTES: [facility] Imaging Services [address] [place] [address] Verdana 4d CTA Chest W/WO Contrast MR#: [id number] Acct: [id number] Name: MAURICIO DORAN Rep #: [id number] : 1945 F 70 From: Sandy Lundberg MD PCP: Micki Cruz MD Status: REG ER Study: CTA Chest W/WO Contrast Date of Exam: 08/14/15 Exam# [id number] Ordering Dr: Logan Velasquez MD STUDY: CTA CHEST REASON FOR EXAM: Female, 70 years old. Postop knee surgery on Saturday. RADIATION DOSAGE (If Supplied By Facility): CTDIvol = ( 17.89 ) mGy, DLP = ( 645.75 ) mGycm TECHNIQUE: The examination was performed with the intravenous administration of 100ml ml of Isovue 370 contrast material. Post-processing of the angiographic images was performed, with multiplanar reformation and 3D reconstruction. COMPARISON: None. FINDINGS: Cardiac monitoring leads are present. There is limited enhancement of the main pulmonary arter y and right and left pulmonary arteries. There is limited enhancement of the bilateral peripheral pulmonary arteries. There is no demonstrated pulmonary embolism. There is atherosclerotic tortuosit y of the aortic arch and descending thoracic aorta. There is no demonstrated aortic dissection. Normal heart and pericardium. There are visualized mediastinal lymph nodes, which are within normal size limits, and with normal morphology. Normal hilar regions. Normal visualized trachea and bronchi. The lungs are well expanded. There is minimal bilateral basilar dependent atelectasis. The mauricio gs are otherwise clear. Normal pleura. Normal chest wall structures. Normal osseous structures. Normal visualized upper abdomen. IMPRESSION: 1. No CTA d emonstrated pulmonary embolism or arterial dissection. Electronically Signed: Sandy Lundberg MD at 20:03 EST , Service support [phone], CC: Germaine Cruz MD; Logan Keen MD [employer] Boat Captain: Signed 12-Aug-2015 Inital Evaluation (1) - PT Result: Comments: See Note; NOTES: [facility] [address] [place], [place] [id number] Fax REHABILITATION SE [facility] INITIAL EVALUATION MR#: [id number] Acct: [id number] Name: MAURICIO SERRANO Rep #: [id number] : 1945 70 From: Bolivar Newell DPT, OCS, CSCS Referring Dr.: OUT OF TOWN DOCTOR Status: REG RCR Insurance: A-TEX Date: Patient's Visit Information MAURICIO SERRANO is a 70 year old F, referred to Physical Therapy by Out of Town Doctor, ERENDIRA HERNANDEZ, with a diagnosis of L Knee TKA. Date of Evaluation: 08/11/15 Physical Therapist: Bolivar Newell - Visit Plan Frequency: 3x /Week Duration: 4-6 Weeks - Subjective Subjective: 2 days ago had L TKA at [facility] by Dr. Salazar. Had bone on bone in knee. R one was done 5 yrs ago. Went home last night and lives with . Walking with wh walker. Used it prior to surgery due to mm spasms but no rmall does not use it. Has two steps to enter and using Right leg and holds onto walker. Dressing self except for shoes but takes time. Has a ceramic tiler to get socks and pick things up off floor. Sleep: G ood last night b/c didn't sleep the first night. 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 Was exercising at pool three days at , gaining weight lately due to knee pain. Hobbies include tennis but stopped due to knee pain, Enjoys family and needs to keep up with grandchilden. HEP: AP, HS, QS. - Pain L knee pain Pain Intensity (Out of 10): 8 Pain Intensity Range: 2, 8 Comment: harder to get comfortable - Objective Gait with wh walker I, decent knee flexion and toe off. Slow and mildly antalgic on L. Transfer to fro chair I on elevated walk, wouldn't try low chair today. Min A needed on L leg to sup ine and up fro supine via L sidelie. R knee AROM 0-105, L knee is 0-58 actively and 62 Passive in supine, 65 in sitting. Unable to SLR I. Hip AROM WFL B. Ankle AROM i s I but slower on L, strength at 4/5 in ankles. 4- in L hip, 4 in R hip. L knee not tested. L anterior incision is dressed, no signs of excessive redness heat or swelling. L leg is edematous and firm to touch. - Homans. Able to stand and take a few steps without walker today, short slow hesitant steps. - Goals Goal 1:: 0-110 AROM L knee to facilitate steps adn function. Goal Time Frame: 4-6 Weeks Goal 2:: Pain in L knee 0-1/1 0 at all times. Goal Time Frame: 4-6 Weeks Goal 3:: Walk in community withoout need for AD. Goal Time Frame: 4-6 Weeks Goal 4:: Sleep without waking due to pain Goal Time Frame: 4-6 Weeks Goal 5:: Pt feel back to all basic ADLs and community ambulation without limitations Goal Time Frame: 4-6 Weeks - Rehabilitation Potential Physical Therapy Diagnosis: s/p L knee TKA Rehabilitation Potentia l: Good - Anticipated Interventions Patient/Client Instruction: Educate patient on: Condition, Plan of Care Comments: HEP, management of condition, For the Purpose of:: To decrease pain, To decreas e swelling/inflammation, To improve ability of physical actions for home/community/work/leisure Therapeutic Exercise to Include: Strength training, Flexibilty training, Gait and locomotor training, Pa ssive ROM, Active ROM For the Purpose of:: To improve muscle performance and motor function, To improve ability of physical actions for home/community/work/leisure, To improve gait and locomotor funct ions Manual Therapy Techniques to Include: Mobilization, Soft tissue mobilization Comment: as needed STM and patellar mobs For the Purpose of:: To decrease swelling/inflammation, To increase ROM Cry otherapy (ice pack, ice massage): Yes - L knee For the Purpose of:: To decrease pain Thank you for the opportunity to evaluate your patient. For Medicare and Medicare HMO plans, please review e plan of care and approve it. It will need to be FAXED BACK to us at [phone] for Medicare purposes. Please let me know if there are questions or concerns regarding this plan of care. Physic carlo Signature: Date: <Electronically signed by Bolivar Newell DPT, OCS, CSCS> 08/12/15 0642 CC: SARATH HERNANDEZ; Micki shea MD; OUT OF TOWN DOCTOR EBG Signed For Medicare only, by signing this I certify the plan of care. Physicians Signature Date 12-Jul-2015 ELECTROCARDIOGRAM, COMPLETE (ECG) ([id number]) Comments: sinus rhythm within normal limits Result: [MEASUREMENTS ANALYSIS] Date of Test: 07/12/2015 13:50:06; Heart Rate: 72; MO Interval: 146; QRS: 90; QT Interval: 392; Corrected QT Interval (QTc): 413; P Wave Seeley: 47; QRS Wave Seeley: 20; T Wave Seeley: 51; Blood Pressure: 122/80 [ECG DIAGNOSTIC STATEMENTS] Date of Test: 07/12/2015 13:50:06; Summary: Sinus Rhythm WITHIN NORMAL LIMITS 30-Jun-2015 Abdomen/Pelvis without Cont Result: Comments: See Note; NOTES: [facility] Imaging Services [address] [place] [address] Verdana 4d Abdomen/Pelvis without Cont MR#: [id number] Acct: [id number] Name: MAURICIO SERRANO Germaine Rep #: [id number] : 1945 F 69 From: Bella Meade MD PCP: Micki Cruz MD Status: REG CLI Study: Abdomen/Pelvis without Cont Date of Exam: 06/30/15 Exam# [id number] Alexia england Dr: Serena Quiñonez STUDY: CT ABDOMEN AND PELVIS WITHOUT CONTRAST REASON FOR EXAM: Female, 69 years old. LT FLANK PAIN, NO PREV HX KS, NO HEMATURIA, NO PREV SURG RADIATION DOSAGE (If Supplied By Facility): CTDIvol = ( 30.33 ) mGy, DLP = ( 1885.66 ) mGycm TECHNIQUE: Transaxial images were obtained from the dome of the diaphragm to the symphysis pubis without oral contrast, and without intrav enous contrast. Sagittal and coronal images were reconstructed. COMPARISON: CT - Abdomen/Pelvis - 18:18 FINDINGS: The visualized lung bases are unr emarkable. The visualized portions of the heart are within normal limits. There is decreased attenuation of the liver consistent with steatosis. Normal gallbladder and extrahepatic biliary system. N ormal spleen. Normal pancreas. Normal bilateral adrenal glands. Normal right kidney. Normal left kidney. Normal visualized stomach. Normal small intestine. There are multiple colonic diverticula consistent with diverticulosis. The appendix is visualized and appears normal. Normal abdominal aorta. Normal inferior vena cava. Normal retroperitoneum. Normal urinary bladder. There is a smal l umbilical hernia containing fat. There are diffuse degenerative changes of the visualized lumbar spine. IMPRESSION: There is a small umbilical hernia containin g fat. Electronically Signed: Natanael Meade MD at 10:49 EST Tel , Service support [phone], CC: Serena Quiñonez; Micki Cruz MD [employer] Captain: Signed 17-Feb-2015 Abdomen/Pelvis WITH Contrast Result: Comments: See Note; NOTES: [facility] Imaging Services [address] [place] [address] CAT Scan Report MR#: [id number] Acct: [id number] Name: MAURICIO SERRANO Rep #: [id number] : 1945 F 69 From: Gerald Persaud DO PCP: Micki Cruz MD Status: REG CLI Study: Abdomen/Pelvis WITH Contrast Date of Exam: 02/17/15 Exam# [id number] Ordering Dr: Micki Cruz MD [facility] DY: CT ABDOMEN AND PELVIS WITH CONTRAST REASON FOR EXAM: Female, 69 years old. Mid to lower abdominal pain. RADIATION DOSAGE (If Supplied By Facility): CTDIvol = ( 24.86 ) mGy, DLP = ( 3087.53 ) mG ycm TECHNIQUE: Transaxial images were obtained from the dome of the diaphragm to the symphysis pubis with oral contrast. 100 ml of Isovue 300 contrast was administered. Sagittal and coronal images w ere reconstructed. COMPARISON: None. FINDINGS: The visualized lung bases are unremarkable. The visualized portions of the heart are within normal limits. Nor mal liver. Normal gallbladder and extrahepatic biliary system. Normal spleen. Normal pancreas. Normal bilateral adrenal glands. Normal right kidney. Normal left kidney. There is circumferential w all thickening of the stomach, most pronounced in the greater curvature. This can related to underdistention or inflammatory or infiltrative process. Normal small intestine. There are multiple coloni c diverticula consistent with diverticulosis. There are surgical clips in the region of the appendix consistent with a prior appendectomy. Normal abdominal aorta. Normal inferior vena cava. Normal r etroperitoneum. Normal urinary bladder. There is absence of the uterus consistent with a prior hysterectomy. There is a small umbilical hernia containing fat. There are diffuse degenerative change s of the visualized lumbar spine. IMPRESSION: 1. Appearance of wall thickening of the stomach, most pronounced in the greater curvature, unsure if this is relate d to underdistention versus inflammatory or infiltrative process. Consider upper GI to further evaluate versus endoscopy. 2. Mild chronic diverticulosis. Patient is status post appendectomy. 3. Sm all fat-containing umbilical hernia. Electronically Signed: Gerald Persaud DO at 19:10 EDT Tel , Service support [phone], CC: Micki Cruz MD [employer] Captain: Signed 02-Nov-2014 Chest WITH Contrast Result: Comments: See Note; NOTES: [facility] Imaging Services [address] [place] [address] CAT Scan Report MR#: [id number] Acct: [id number] Name: MAURICIO SERRANO Rep #: [id number] : 1945 F 69 From: Michael Noland MD PCP: Micki Cruz MD Status: REG CLI Study: Chest WITH Contrast Date of Exam: 11/02/14 Exam# [id number] Ordering Dr: Serena Quiñonez STUDY: CTA CHEST REASON FOR EXAM: Female, 69 years old. Shortness of breath and chest pain. Elevated d-dimer. RADIATION DOSAGE (If Supplied By Facility): CTDIvol = ( 17.05 ) mGy, DLP = ( 643.93 ) mGycm ASHLEIGH HNIQUE: The examination was performed with the intravenous administration of 100ML ml of Isovue 370 contrast material. Post-processing of the angiographic images was performed, with multiplanar refor mation and 3D reconstruction. COMPARISON: Comparison is made with prior study dated December 06, 2009. FINDINGS: Normal enhancement of the main pulmonary artery and right and left pulmonary arteries. Normal enhancement of the bilateral peripheral pulmonary arteries. There is no demonstrated pulmonary embolism. Normal thoracic aorta and visualized great vessels . There is no demonstrated aortic dissection. Normal heart and pericardium. Normal mediastinum. Normal hilar regions. Normal visualized trachea and bronchi. The lungs are well expanded. Normal pulmonary parenchyma. Normal pleura. Normal chest wall structures. There are mild degenerative changes of thoracic spine. Normal visualized upper abdomen. IMPRESSION: Normal CTA chest examination, without a demonstrated pulmonary embolism or arterial dissection. Electronically Signed: Michael Noland MD at 15:54 EDT Tel [phone], Service support [phone], CC: Serena Quiñonez; Micki Cruz MD [employer]: Signed 15-Mar-2014 Toe(s) Min 2 Views Result: Comments: See Note; NOTES: [facility] Imaging Services [address] [place] [address] Radiology Report MR#: [id number] Acct: [id number] Name: MAURICIO SERRANO Rep #: [id number] : 1945 F 68 From: Romaine Tafoya DO PCP: Micki Cruz MD Status: REG CLI Study: Toe(s) Min 2 Views Date of Exam: 03/15/14 Exam# [id number] Ordering Dr: Serena Quiñonez STUDY: X-RAY LEFT FOOT, SECOND TOE REASON FOR EXAM: Female, 68 years old. Smashed toe into chair one week ago. TECHNIQUE: 30 view(s) of the toe was obtained. COMPARISON: None. FINDINGS: Normal visualized metatarsus. Normal metatarsophalangeal (M.T.P) joint. Normal interphalangeal joints. Normal phalanges and interphalangeal joints. The soft tissue structures are unrema rkable. The remainder of the toes are grossly unremarkable. IMPRESSION: No acute abnormality of the left second toe. Electronically Signed: Romaine Tafoya DO 2 at 16:54 EDT Tel [phone], Service support [phone], RAD/Toe(s) Min 2 Views IMPRESSION: No acute abnormality of the left second toe. Electron ically Signed: Romaine Tafoya DO at 16:54 EDT Tel [phone], Service support [phone], CC: Serena Quiñonez; Micki Cruz MD [employer] Captain: Signed 15-Feb-2014 Spine Cervical without Contras Result: Comments: See Note; NOTES: [facility] Imaging Services [address] [place] [address] CAT Scan Report MR#: [id number] Acct: [id number] Name: MAURICIO SERRANO Rep #: [id number] : 1945 F 68 From: Michael Noland MD PCP: Micki Cruz MD Status: REG CLI Study: Spine Cervical without Contras Date of Exam: 02/15/14 Exam# [id number] Ordering Dr: Micki Cruz MD STUDY: CT CERVICAL SPINE WITHOUT CONTRAST REASON FOR EXAM: Female, 68 years old. Severe neck pain with tingling in both arms. RADIATION DOSAGE (If Supplied By Facility): CTDIvol = ( 61.59 ) mG y, DLP = ( 1130.74 ) mGycm TECHNIQUE: High resolution transaxial imaging was performed without contrast material. Sagittal and coronal images were reconstructed. COMPARISON: None FINDINGS: Normal craniovertebral junction. Normal anterior atlantoaxial articulation. Normal odontoid process. Normal cervical lordosis. Normal vertebral bodies and posterior o sseous elements. C2-3: Normal endplates. Normal disc height and morphology. There is evidence of facet joint osteoarthritis and hypertrophy on the left side. This causes mild left neural foraminal stenosis. C3-4: Normal endplates. Normal disc height and morphology. There is hypertrophy of the left facet joint with osteoarthritis. No significant stenosis is seen. C4-5: Mild degree of anterio r listhesis of C4 on C5. There is hypertrophy of the facet joint on the left side. This leads to mild degree of left neural foraminal stenosis. C5-6: Moderate degree of disc space narrowing with spo ndylosis. Is also evidence of uncovertebral osteoarthrosis and mild facet joint osteoarthritis. Is a mild degree of bilateral neural foraminal stenosis. C6- 7: Marked degree of disc space narrowing a nd spondylosis. There is evidence of facet joint osteoarthritis. C7-T1: Normal endplates. Normal disc height and morphology. Normal central canal and intervertebral neuroforamina. Normal visualize d soft tissue structures. IMPRESSION: Multilevel degenerative changes, as described above. Electronically Signed: Michael Noland MD at 14:08 E DT Tel [phone], Service support [phone], CC: Micki Cruz MD [employer] Captain: Signed 11-Feb-2014 Cerv Spine 4 or 5 Views Result: Comments: See Note; NOTES: [facility] Imaging Services [address] [place] [address] Radiology Report MR#: [id number] Acct: [id number] Name: MAURICIO SERRANO Rep #: [id number] : 1945 F 68 From: Julio Charles DO PCP: Micki Cruz MD Status: REG CLI Study: Cerv Spine 4 or 5 Views Date of Exam: 02/11/14 Exam# [id number] Ordering Dr: Serena Quiñonez STUDY: X-RAY - C ERVICAL SPINE REASON FOR EXAM: Female, 68 years old. Whiplash, pain TECHNIQUE: 5 view(s) of the cervical spine were obtained. COMPARISON: None FINDINGS: Nor mal anterior atlantoaxial articulation. There is a questionable lucency through the base of the odontoid process. Straightening of the cervical lordosis. Mild degenerative changes of the vertebral b odies with spurring at the endplates of C5, C6, and C7. Minimally narrowed C5- 6 and C6-7 disc space heights. Minimal spondylolisthesis at C4-5. Minimal uncovertebral spurring slightly narrowing the l eft C5-6 and C6-7 intervertebral neuroforamina. The soft tissue structures are unremarkable. IMPRESSION: Mild degenerative changes of the lower cervical spine. Questionable lucency through the base of the odontoid. A nondisplaced fracture cannot be excluded. Correlation with CT if clinically indicated. Electronically Signed: Julio Chalres DO at 19 :48 EDT Tel [phone], Service support [phone], CC: Serena Quiñonez; Micki Cruz MD [employer]: Signed 09-Oct-2013 Knee 4 or More Views Result: Comments: See Note; NOTES: [facility] Imaging Services [address] [place] [address] Radiology Report MR#: [id number] Acct: [id number] Name: MAURICIO SERRANO Rep #: [id number] : 1945 F 68 From: Romaine Tafoya DO PCP: Micki Cruz MD Status: REG CLI Study: Knee 4 or More Views Date of Exam: 10/09/13 Exam# [id number] Ordering Dr: Serena Quiñonez STUDY: X-RAY - R IGHT KNEE REASON FOR EXAM: Female, 68 years old. Swelling of the knee. TECHNIQUE: 4 view(s) of the knee. COMPARISON: None. FINDINGS: There is a total knee r eplacement. The prosthetic components are intact and articulate normally with each other. There is no evidence of loosening from the underlying bone. There is no evidence of osseous fracture or dest ructive osseous pathology. The soft tissue structures are unremarkable. There is no visualized joint effusion. IMPRESSION: Right knee arthroplasty without evid ence of acute abnormality. Electronically Signed: Romaine Tafoya DO at 19:01 EDT Tel [phone], Service support [phone], CC: Serena Quiñonez; Micki Cruz MD [employer] Captain: Signed 03-Sep-2013 Hepatobilliary Imaging Result: Comments: See Note; NOTES: [facility] Imaging Services [address] [place] [address] Nuclear Medicine Report MR#: [id number] Acct: [id number] Name: MAURICIO SERRANO Rep #: [id number] : 1945 F 68 From: Gene Diallo DO PCP: Micki Cruz MD Status: REG CLI Study: Hepatobilliary Imaging Date of Exam: 09/03/13 Exam# [id number] Ordering Dr: Catalina Daly DO CLINICAL: 68-year-old female with reported history of abdominal pain. RADIONUCLIDE HEPATOBILIARY SCINTIGRAPHY COMPARISON: Abdominal ultrasound report 08/27/13 FINDINGS: Following the intrave nous administration of 5.1 mCi of Tc Mebrofenin, hepatobiliary images reveal: 1. Relatively prompt and homogeneous radiopharmaceutical concentration is noted by a normal sized liver. No parenchymal defects are identified. 2. Gallbladder activity is identified at 10 minutes post radiopharmaceutical administration. 3. Small intestinal tract is not visualized during 60 minutes of pre-CCK image ac quisition. Small bowel is observed following cholecystokinin injection. 4. Washout of the radiopharmaceutical by the hepatic parenchyma appears qualitatively normal. Cholecystokinin (0.02 ug/kg) wa s administered intravenously over a 30-minute period. The post CCK gallbladder ejection fraction calculated at 20 minutes following Cholecystokinin administration was noted to be 94 % (normal greater than 35%). During 30 minutes of post CCK imaging, there is no scintigraphic evidence of reflux of the radiotracer into the common hepatic duct or refilling of the gallbladder. IMPRESSION: 1. MALIA L 99m Tc Mebrofenin hepatobiliary imaging examination with Cholecystokinin. A. A gallbladder ejection fraction calculated to be greater than 35% following the administration of Cholecystokinin makes the probability of functional hepatobiliary disease (gallbladder and/or sphincter of Oddi dyskinesia) and/or organic hepatobiliary disease (chronic acalculous cholecystitis and/or cystic duct syndro me) to be low. (Breezy Hitchcock al, Journal of Nuclear Medicine 32:1695, 1991). Electronically Signed: Gene Diallo M.D. at 7:07 EST , Service support [phone], Fa x [phone] CLINICAL: 68-year-old female with reported history of abdominal pain. RADIONUCLIDE HEPATOBILIARY SCINTIGRAPHY COMPARISON: Abdominal ultrasound report 08/27/13 FINDINGS: Followi ng the intravenous administration of 5.1 mCi of Tc Mebrofenin, hepatobiliary images reveal: 1. Relatively prompt and homogeneous radiopharmaceutical concentration is noted by a normal sized liver. N o parenchymal defects are identified. 2. Gallbladder activity is identified at 10 minutes post radiopharmaceutical administration. 3. Small intestinal tract is not visualized during 60 minutes of pre -CCK image acquisition. Small bowel is observed following cholecystokinin injection. 4. Washout of the radiopharmaceutical by the hepatic parenchyma appears qualitatively normal. Cholecystokinin ( 0.02 ug/kg) was administered intravenously over a 30-minute period. The post CCK gallbladder ejection fraction calculated at 20 minutes following Cholecystokinin administration was noted to be 94 % ( normal greater than 35%). During 30 minutes of post CCK imaging, there is no scintigraphic evidence of reflux of the radiotracer into the common hepatic duct or refilling of the gallbladder. IMPRESS ION: 1. NORMAL 99m Tc Mebrofenin hepatobiliary imaging examination with Cholecystokinin. A. A gallbladder ejection fraction calculated to be greater than 35% following the administration of Cholecy stokinin makes the probability of functional hepatobiliary disease (gallbladder and/or sphincter of Oddi dyskinesia) and/or organic hepatobiliary disease (chronic acalculous cholecystitis and/or cyst ic duct syndrome) to be low. (Breezy Hitchcock al, Journal of Nuclear Medicine 32:1695, 1990). Electronically Signed: Gene Diallo M.D. at 7:08 EST , Service support , CC: Micki Cruz MD; Catalina Daly DO [employer]: Signed 27-Aug-2013 Gallbladder Result: Comments: See Note; NOTES: [facility] Imaging Services [address] [place] [address] Ultrasound Report MR#: [id number] Acct: [id number] Name: MAURICIO SERRANO Rep #: [id number] : 1945 F 68 From: Michael Noland MD PCP: Micki Cruz MD Status: REG CLI Study: Gallbladder Date of Exam: 08/27/13 Exam# [id number] Ordering Dr: Catalina Daly DO STUDY: AB DOMINAL ULTRASOUND - RIGHT UPPER QUADRANT REASON FOR VISIT: Female, 68 years old. Mid abdominal pain. TECHNIQUE: Ultrasound evaluation of the right upper quadrant was performed with real-time and s tatic coates-scale imaging. TECHNICAL QUALITY: Limited. Examination limited due to a combination of factors including obesity and bowel gas. COMPARISON: None. F INDINGS: Liver: The liver measures 15.4 cm. There is normal echogenicity of the liver. The bile ducts are within normal limits. There is hepatic color flow. The direction of portal flow is hepatopet al. There is no demonstrated mass lesion. Gallbladder: Normal distended gallbladder. The gallbladder wall measures 0.9 mm. There is a negative sonographic Barboza's sign. There is no pericholecystic fluid. There are no gallstones. Common Bile Duct (C.B.D.): The common bile duct measures 4.5 mm. Pancreas: Normal size of the head, body and tail of the pancreas. There is increased echogenicity o f the pancreas. There is no demonstrated pancreatic mass or cyst. Right Kidney: Normal size of the right kidney. The right kidney measures 9.6 cm. Normal renal cortex. The right cortex measures 1.3 cm. There is no demonstrated renal mass or cyst. There is no right hydronephrosis. IMPRESSION: Normal right upper quadrant ultrasound examination. Electronical ly Signed: Michael Noland M.D. 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 Comments: 11/16/11 Status: Active Smoking Status Name Dates Details Never smoker Vital Signs Date Test Result Details :52 Temperature 96.3 f Comments: Method: Temporal Pulse 58 /min Comments: Pattern: Regular Respiration Rate 16 /min Comments: Pattern: Unlabored O2 SAT 98 % Comments: Room air BP Systolic 132 mm[Hg] Comments: Patient Position: Sitting; Cuff Location: Left Arm; Cuff Size: Standard BP Diastolic 70 mm[Hg] Comments: Patient Position: Sitting; Cuff Location: Left Arm; Cuff Size: Standard Weight 210.25 lb Height 63 in Body Mass Index Calculated 37.24 kg/m2 Body Surface Area Calculated 1.98 m2 :20 Temperature 97.5 f Pulse 77 /min Comments: Pattern: Regular Respiration Rate 18 /min Comments: Pattern: Unlabored O2 SAT 99 % Comments: Room air BP Systolic 130 mm[Hg] Comments: Patient Position: Sitting; Cuff Location: Left Arm; Cuff Size: Standard BP Diastolic 82 mm[Hg] Comments: Patient Position: Sitting; Cuff Location: Left Arm; Cuff Size: Standard Weight 210.25 lb Height 63 in Body Mass Index Calculated 37.24 kg/m2 Body Surface Area Calculated 1.98 m2 :37 Temperature 97.4 f Pulse 71 /min Comments: Pattern: Regular Respiration Rate 16 /min Comments: Pattern: Unlabored O2 SAT 97 % Comments: Room air BP Systolic 162 mm[Hg] Comments: Patient Position: Sitting; Cuff Location: Left Arm; Cuff Size: Standard BP Diastolic 86 mm[Hg] Comments: Patient Position: Sitting; Cuff Location: Left Arm; Cuff Size: Standard Weight 210.25 lb Height 63 in Body Mass Index Calculated 37.24 kg/m2 Body Surface Area Calculated 1.98 m2 :06 Temperature 97.4 f Pulse 68 /min Comments: Pattern: Regular Respiration Rate 18 /min Comments: Pattern: Unlabored O2 SAT 98 % Comments: Room air BP Systolic 130 mm[Hg] Comments: Patient Position: Sitting; Cuff Location: Left Arm; Cuff Size: Standard BP Diastolic 86 mm[Hg] Comments: Patient Position: Sitting; Cuff Location: Left Arm; Cuff Size: Standard Weight 210.25 lb Height 63 in Body Mass Index Calculated 37.24 kg/m2 Body Surface Area Calculated 1.98 m2 :53 Temperature 97.8 f Pulse 75 /min Comments: Pattern: Regular Respiration Rate 16 /min Comments: Pattern: Unlabored O2 SAT 99 % Comments: Room air BP Systolic 136 mm[Hg] Comments: Patient Position: Sitting; Cuff Location: Left Arm; Cuff Size: Standard BP Diastolic 84 mm[Hg] Comments: Patient Position: Sitting; Cuff Location: Left Arm; Cuff Size: Standard Weight 210.25 lb Height 63 in Body Mass Index Calculated 37.24 kg/m2 Body Surface Area Calculated 1.98 m2 :47 Temperature 97.2 f Pulse 66 /min Comments: Pattern: Regular Respiration Rate 17 /min Comments: Pattern: Unlabored O2 SAT 97 % Comments: Room air BP Systolic 150 mm[Hg] Comments: Patient Position: Sitting; Cuff Location: Left Arm; Cuff Size: Standard BP Diastolic 84 mm[Hg] Comments: Patient Position: Sitting; Cuff Location: Left Arm; Cuff Size: Standard Weight 210.25 lb Height 63 in Body Mass Index Calculated 37.24 kg/m2 Body Surface Area Calculated 1.98 m2 :28 Comments: Dr Stone does eye exam, has upcoming appt with glaucoma screening. Temperature 97.7 f Pulse 68 /min Comments: Pattern: Regular Respiration Rate 17 /min Comments: Pattern: Unlabored O2 SAT 96 % Comments: Room air BP Systolic 122 mm[Hg] Comments: Patient Position: Sitting; Cuff Location: Left Arm; Cuff Size: Standard BP Diastolic 80 mm[Hg] Comments: Patient Position: Sitting; Cuff Location: Left Arm; Cuff Size: Standard Weight 210.25 lb Height 63 in Body Mass Index Calculated 37.24 kg/m2 Body Surface Area Calculated 1.98 m2 :06 Temperature 98.7 f Pulse 72 /min Comments: Pattern: Regular Respiration Rate 17 /min Comments: Pattern: Unlabored O2 SAT 96 % Comments: Room air BP Systolic 122 mm[Hg] Comments: Patient Position: Sitting; Cuff Location: Left Arm; Cuff Size: Standard BP Diastolic 82 mm[Hg] Comments: Patient Position: Sitting; Cuff Location: Left Arm; Cuff Size: Standard Weight 210.25 lb Height 63 in Body Mass Index Calculated 37.24 kg/m2 Body Surface Area Calculated 1.98 m2 [id number] Temperature 97 f Pulse 85 /min Comments: Pattern: Regular Respiration Rate 17 /min Comments: Pattern: Unlabored O2 SAT 96 % Comments: Room air BP Systolic 120 mm[Hg] Comments: Patient Position: Sitting; Cuff Location: Left Arm; Cuff Size: Standard BP Diastolic 80 mm[Hg] Comments: Patient Position: Sitting; Cuff Location: Left Arm; Cuff Size: Standard Weight 213 lb Height 63 in Body Mass Index Calculated 37.73 kg/m2 Body Surface Area Calculated 1.99 m2 :50 Temperature 97.4 f Pulse 70 /min Comments: Pattern: Regular Respiration Rate 16 /min Comments: Pattern: Unlabored O2 SAT 99 % Comments: Room air BP Systolic 124 mm[Hg] Comments: Patient Position: Sitting; Cuff Location: Left Arm; Cuff Size: Standard BP Diastolic 82 mm[Hg] Comments: Patient Position: Sitting; Cuff Location: Left Arm; Cuff Size: Standard Weight 217 lb Height 63 in Body Mass Index Calculated 38.44 kg/m2 Body Surface Area Calculated 2 m2 :07 Temperature 98.6 f Comments: Method: Tympanic Pulse 88 /min Comments: Pattern: Regular Respiration Rate 18 /min Comments: Pattern: Unlabored O2 SAT 98 % Comments: Room air BP Systolic 120 mm[Hg] Comments: Patient Position: Sitting; Cuff Location: Left Arm; Cuff Size: Standard BP Diastolic 64 mm[Hg] Comments: Patient Position: Sitting; Cuff Location: Left Arm; Cuff Size: Standard Weight 242.25 lb Height 63 in Body Mass Index Calculated 42.91 kg/m2 Body Surface Area Calculated 2.1 m2 :38 Temperature 97.8 f Pulse 81 /min Comments: Pattern: Regular Respiration Rate 16 /min Comments: Pattern: Unlabored O2 SAT 97 % Comments: Room air BP Systolic 134 mm[Hg] Comments: Patient Position: Sitting; Cuff Location: Left Arm; Cuff Size: Standard BP Diastolic 82 mm[Hg] Comments: Patient Position: Sitting; Cuff Location: Left Arm; Cuff Size: Standard Weight 242.25 lb Height 63 in Body Mass Index Calculated 42.91 kg/m2 Body Surface Area Calculated 2.1 m2 :46 Temperature 98.3 f Pulse 98 /min Comments: Pattern: Regular Respiration Rate 17 /min Comments: Pattern: Unlabored O2 SAT 98 % Comments: Room air BP Systolic 142 mm[Hg] Comments: Patient Position: Sitting; Cuff Location: Left Arm; Cuff Size: Standard BP Diastolic 78 mm[Hg] Comments: Patient Position: Sitting; Cuff Location: Left Arm; Cuff Size: Standard Weight 242.25 lb Height 63 in Body Mass Index Calculated 42.91 kg/m2 Body Surface Area Calculated 2.1 m2 :16 Temperature 98 f Pulse 73 /min Comments: Pattern: Regular Respiration Rate 18 /min Comments: Pattern: Unlabored O2 SAT 96 % Comments: Room air BP Systolic 122 mm[Hg] Comments: Patient Position: Sitting; Cuff Location: Left Arm; Cuff Size: Standard BP Diastolic 80 mm[Hg] Comments: Patient Position: Sitting; Cuff Location: Left Arm; Cuff Size: Standard Weight 234.25 lb Height 63 in Body Mass Index Calculated 41.5 kg/m2 Body Surface Area Calculated 2.07 m2 :37 Temperature 98.1 f Pulse 80 /min Comments: Pattern: Regular Respiration Rate 17 /min Comments: Pattern: Unlabored O2 SAT 97 % Comments: Room air BP Systolic 126 mm[Hg] Comments: Patient Position: Sitting; Cuff Location: Left Arm; Cuff Size: Standard BP Diastolic 82 mm[Hg] Comments: Patient Position: Sitting; Cuff Location: Left Arm; Cuff Size: Standard Weight 234.25 lb Height 63 in Body Mass Index Calculated 41.5 kg/m2 Body Surface Area Calculated 2.07 m2 :21 Temperature 97.6 f Pulse 88 /min Comments: Pattern: Regular Respiration Rate 18 /min Comments: Pattern: Unlabored O2 SAT 97 % Comments: Room air BP Systolic 142 mm[Hg] Comments: Patient Position: Sitting; Cuff Location: Left Arm; Cuff Size: Standard BP Diastolic 88 mm[Hg] Comments: Patient Position: Sitting; Cuff Location: Left Arm; Cuff Size: Standard Weight 234.25 lb Height 63 in Body Mass Index Calculated 41.5 kg/m2 Body Surface Area Calculated 2.07 m2 :59 Temperature 97.4 f Pulse 74 /min Comments: Pattern: Regular Respiration Rate 16 /min Comments: Pattern: Unlabored O2 SAT 97 % Comments: Room air BP Systolic 132 mm[Hg] Comments: Patient Position: Sitting; Cuff Location: Left Arm; Cuff Size: Standard BP Diastolic 82 mm[Hg] Comments: Patient Position: Sitting; Cuff Location: Left Arm; Cuff Size: Standard Weight 230.125 lb Height 63 in Body Mass Index Calculated 40.76 kg/m2 Body Surface Area Calculated 2.05 m2 :27 Temperature 97.9 f Pulse 80 /min Comments: Pattern: Regular Respiration Rate 16 /min Comments: Pattern: Unlabored O2 SAT 96 % Comments: Room air BP Systolic 148 mm[Hg] Comments: Patient Position: Sitting; Cuff Location: Left Arm; Cuff Size: Standard BP Diastolic 78 mm[Hg] Comments: Patient Position: Sitting; Cuff Location: Left Arm; Cuff Size: Standard Weight 230.125 lb Height 63 in Body Mass Index Calculated 40.76 kg/m2 Body Surface Area Calculated 2.05 m2 :12 Temperature 97.8 f Comments: Method: Temporal Pulse 76 /min Comments: Pattern: Regular Respiration Rate 17 /min Comments: Pattern: Unlabored O2 SAT 98 % Comments: Room air BP Systolic 134 mm[Hg] Comments: Patient Position: Sitting; Cuff Location: Left Arm; Cuff Size: Standard BP Diastolic 78 mm[Hg] Comments: Patient Position: Sitting; Cuff Location: Left Arm; Cuff Size: Standard Weight 246 lb Height 63 in Body Mass Index Calculated 43.58 kg/m2 Body Surface Area Calculated 2.11 m2 :41 Temperature 97.4 f Comments: Method: Oral Pulse 66 /min Comments: Pattern: Regular Respiration Rate 17 /min O2 SAT 98 % Comments: Room air BP Systolic 128 mm[Hg] Comments: Patient Position: Sitting; Cuff Location: Left Arm; Cuff Size: Standard BP Diastolic 80 mm[Hg] Comments: Patient Position: Sitting; Cuff Location: Left Arm; Cuff Size: Standard Weight 246 lb Height 63 in Body Mass Index Calculated 43.58 kg/m2 Body Surface Area Calculated 2.11 m2 :25 Temperature 97.6 f Comments: Method: Temporal Pulse 68 /min Comments: Pattern: Regular Respiration Rate 20 /min Comments: Pattern: Unlabored BP Systolic 140 mm[Hg] Comments: Patient Position: Sitting; Cuff Location: Left Arm; Cuff Size: Large BP Diastolic 84 mm[Hg] Comments: Patient Position: Sitting; Cuff Location: Left Arm; Cuff Size: Large Weight 246 lb Height 63 in Body Mass Index Calculated 43.58 kg/m2 Body Surface Area Calculated 2.11 m2 :37 Temperature 98.1 f Comments: Method: Oral Pulse 68 /min Comments: Pattern: Regular Respiration Rate 17 /min O2 SAT 94 % Comments: Room air BP Systolic 128 mm[Hg] Comments: Patient Position: Sitting; Cuff Location: Left Arm; Cuff Size: Standard BP Diastolic 80 mm[Hg] Comments: Patient Position: Sitting; Cuff Location: Left Arm; Cuff Size: Standard Weight 246 lb Height 63 in Body Mass Index Calculated 43.58 kg/m2 Body Surface Area Calculated 2.11 m2 :09 Temperature 97.8 f Comments: Method: Oral Pulse 74 /min Comments: Pattern: Regular Respiration Rate 16 /min Comments: Pattern: Unlabored O2 SAT 98 % Comments: Room air BP Systolic 140 mm[Hg] Comments: Patient Position: Sitting; Cuff Location: Left Arm; Cuff Size: Standard BP Diastolic 78 mm[Hg] Comments: Patient Position: Sitting; Cuff Location: Left Arm; Cuff Size: Standard Weight 246 lb Height 63 in Body Mass Index Calculated 43.58 kg/m2 Body Surface Area Calculated 2.11 m2 :05 Temperature 98.8 f Comments: Method: Oral Pulse 72 /min Comments: Pattern: Regular Respiration Rate 16 /min O2 SAT 98 % Comments: Room air BP Systolic 130 mm[Hg] Comments: Patient Position: Sitting; Cuff Location: Left Arm; Cuff Size: Standard BP Diastolic 72 mm[Hg] Comments: Patient Position: Sitting; Cuff Location: Left Arm; Cuff Size: Standard Weight 246 lb Height 63 in Body Mass Index Calculated 43.58 kg/m2 Body Surface Area Calculated 2.11 m2 :04 Temperature 98.2 f Comments: Method: Oral Pulse 70 /min Comments: Pattern: Regular O2 SAT 98 % Comments: Room air BP Systolic 128 mm[Hg] Comments: Patient Position: Sitting; Cuff Location: Left Arm; Cuff Size: Standard BP Diastolic 78 mm[Hg] Comments: Patient Position: Sitting; Cuff Location: Left Arm; Cuff Size: Standard Weight 244.3125 lb Height 63 in Body Mass Index Calculated 43.28 kg/m2 Body Surface Area Calculated 2.11 m2 :58 Temperature 97.9 f Comments: Method: Oral Pulse 70 /min Comments: Pattern: Regular Respiration Rate 16 /min Comments: Pattern: Unlabored O2 SAT 98 % Comments: Room air BP Systolic 126 mm[Hg] Comments: Patient Position: Sitting; Cuff Location: Left Arm; Cuff Size: Standard BP Diastolic 88 mm[Hg] Comments: Patient Position: Sitting; Cuff Location: Left Arm; Cuff Size: Standard Weight 239 lb Height 63 in Body Mass Index Calculated 42.34 kg/m2 Body Surface Area Calculated 2.09 m2 :13 Temperature 98.8 f Comments: Method: Oral Pulse 70 /min Comments: Pattern: Regular Respiration Rate 18 /min O2 SAT 98 % Comments: Room air BP Systolic 118 mm[Hg] Comments: Patient Position: Sitting; Cuff Location: Left Arm; Cuff Size: Standard BP Diastolic 78 mm[Hg] Comments: Patient Position: Sitting; Cuff Location: Left Arm; Cuff Size: Standard Weight 239 lb Height 63 in Body Mass Index Calculated 42.34 kg/m2 Body Surface Area Calculated 2.09 m2 :34 Temperature 97.6 f Comments: Method: Oral Pulse 74 /min Comments: Pattern: Regular Respiration Rate 20 /min Comments: Pattern: Unlabored BP Systolic 130 mm[Hg] Comments: Patient Position: Sitting; Cuff Location: Left Arm; Cuff Size: Standard BP Diastolic 90 mm[Hg] Comments: Patient Position: Sitting; Cuff Location: Left Arm; Cuff Size: Standard Weight 239 lb Height 63 in Body Mass Index Calculated 42.34 kg/m2 Body Surface Area Calculated 2.09 m2 :39 Temperature 98.3 f Comments: Method: Oral Pulse 68 /min Comments: Pattern: Regular Respiration Rate 18 /min BP Systolic 124 mm[Hg] Comments: Patient Position: Sitting; Cuff Location: Left Arm; Cuff Size: Standard BP Diastolic 72 mm[Hg] Comments: Patient Position: Sitting; Cuff Location: Left Arm; Cuff Size: Standard Weight 239 lb Height 63 in Body Mass Index Calculated 42.34 kg/m2 Body Surface Area Calculated 2.09 m2 :19 Temperature 97.9 f Comments: Method: Oral Pulse 74 /min Comments: Pattern: Regular Respiration Rate 18 /min Comments: Pattern: Unlabored BP Systolic 126 mm[Hg] Comments: Patient Position: Sitting; Cuff Location: Left Arm; Cuff Size: Standard BP Diastolic 74 mm[Hg] Comments: Patient Position: Sitting; Cuff Location: Left Arm; Cuff Size: Standard Weight 239 lb Height 63 in Body Mass Index Calculated 42.34 kg/m2 Body Surface Area Calculated 2.09 m2 :38 Temperature 98.3 f Comments: Method: Oral Pulse 80 /min Comments: Pattern: Regular Respiration Rate 16 /min Comments: Pattern: Unlabored BP Systolic 130 mm[Hg] Comments: Patient Position: Sitting; Cuff Location: Left Arm; Cuff Size: Standard BP Diastolic 80 mm[Hg] Comments: Patient Position: Sitting; Cuff Location: Left Arm; Cuff Size: Standard Weight 237 lb Height 63 in Body Mass Index Calculated 41.98 kg/m2 Body Surface Area Calculated 2.08 m2 :53 Temperature 98.5 f Comments: Method: Oral Pulse 74 /min Comments: Pattern: Regular Respiration Rate 18 /min O2 SAT 98 % Comments: Room air BP Systolic 124 mm[Hg] Comments: Patient Position: Sitting; Cuff Location: Left Arm; Cuff Size: Standard BP Diastolic 70 mm[Hg] Comments: Patient Position: Sitting; Cuff Location: Left Arm; Cuff Size: Standard Weight 192 lb Height 63 in Body Mass Index Calculated 34.01 kg/m2 Body Surface Area Calculated 1.9 m2 :55 Temperature 97.6 f Comments: Method: Oral Pulse 80 /min Comments: Pattern: Regular Respiration Rate 18 /min Comments: Pattern: Unlabored BP Systolic 120 mm[Hg] Comments: Patient Position: Sitting; Cuff Location: Left Arm; Cuff Size: Standard BP Diastolic 78 mm[Hg] Comments: Patient Position: Sitting; Cuff Location: Left Arm; Cuff Size: Standard Weight 192 lb Height 63 in Body Mass Index Calculated 34.01 kg/m2 Body Surface Area Calculated 1.9 m2 :12 Temperature 97.1 f Comments: Method: Temporal Pulse 72 /min Comments: Pattern: Regular Respiration Rate 16 /min Comments: Pattern: Unlabored O2 SAT 93 % Comments: Room air BP Systolic 120 mm[Hg] Comments: Patient Position: Sitting; Cuff Location: Left Arm; Cuff Size: Standard BP Diastolic 72 mm[Hg] Comments: Patient Position: Sitting; Cuff Location: Left Arm; Cuff Size: Standard Weight 192 lb Height 63 in Body Mass Index Calculated 34.01 kg/m2 Body Surface Area Calculated 1.9 m2 :15 Temperature 98.3 f Comments: Method: Oral Pulse 62 /min Comments: Pattern: Regular O2 SAT 97 % Comments: Room air BP Systolic 120 mm[Hg] Comments: Patient Position: Sitting; Cuff Location: Left Arm; Cuff Size: Standard BP Diastolic 80 mm[Hg] Comments: Patient Position: Sitting; Cuff Location: Left Arm; Cuff Size: Standard Weight 241 lb Height 63 in Body Mass Index Calculated 42.69 kg/m2 Body Surface Area Calculated 2.09 m2 :51 Temperature 98.9 f Comments: Method: Oral Pulse 72 /min Comments: Pattern: Regular Respiration Rate 18 /min O2 SAT 98 % Comments: Room air BP Systolic 124 mm[Hg] Comments: Patient Position: Sitting; Cuff Location: Left Arm; Cuff Size: Standard BP Diastolic 80 mm[Hg] Comments: Patient Position: Sitting; Cuff Location: Left Arm; Cuff Size: Standard Weight 241 lb Height 63 in Body Mass Index Calculated 42.69 kg/m2 Body Surface Area Calculated 2.09 m2 :16 Temperature 96.4 f Comments: Method: Oral Pulse 76 /min Comments: Pattern: Regular Respiration Rate 20 /min Comments: Pattern: Unlabored BP Systolic 130 mm[Hg] Comments: Patient Position: Sitting; Cuff Location: Left Arm; Cuff Size: Large BP Diastolic 82 mm[Hg] Comments: Patient Position: Sitting; Cuff Location: Left Arm; Cuff Size: Large Weight 241 lb Height 63 in Body Mass Index Calculated 42.69 kg/m2 Body Surface Area Calculated 2.09 m2 [id number] Temperature 96.5 f Comments: Method: Oral Pulse 76 /min Comments: Pattern: Regular Respiration Rate 18 /min Comments: Pattern: Unlabored O2 SAT 96 % Comments: Room air BP Systolic 126 mm[Hg] Comments: Patient Position: Sitting; Cuff Location: Left Arm; Cuff Size: Large BP Diastolic 80 mm[Hg] Comments: Patient Position: Sitting; Cuff Location: Left Arm; Cuff Size: Large Weight 243.125 lb Height 63 in Body Mass Index Calculated 43.07 kg/m2 Body Surface Area Calculated 2.1 m2 :44 BP Systolic 132 mm[Hg] Comments: Patient Position: Supine; Cuff Location: Right Arm; Cuff Size: Standard BP Diastolic 82 mm[Hg] Comments: Patient Position: Supine; Cuff Location: Right Arm; Cuff Size: Standard :37 Pulse 66 /min Comments: Pattern: Regular Respiration Rate 16 /min Comments: Pattern: Unlabored BP Systolic 172 mm[Hg] Comments: Patient Position: Sitting; Cuff Location: Left Arm; Cuff Size: Standard BP Diastolic 90 mm[Hg] Comments: Patient Position: Sitting; Cuff Location: Left Arm; Cuff Size: Standard Weight 240.1875 lb Height 63 in Body Mass Index Calculated 42.55 kg/m2 Body Surface Area Calculated 2.09 m2 :42 Temperature 96.7 f Comments: Method: Oral Pulse 72 /min Comments: Pattern: Regular Respiration Rate 20 /min Comments: Pattern: Unlabored BP Systolic 132 mm[Hg] Comments: Patient Position: Sitting; Cuff Location: Left Arm; Cuff Size: Large BP Diastolic 84 mm[Hg] Comments: Patient Position: Sitting; Cuff Location: Left Arm; Cuff Size: Large Weight 240.1875 lb Height 63 in Body Mass Index Calculated 42.55 kg/m2 Body Surface Area Calculated 2.09 m2 :52 Pulse 80 /min Comments: Pattern: Regular Respiration Rate 18 /min Comments: Pattern: Unlabored BP Systolic 132 mm[Hg] Comments: Patient Position: Sitting; Cuff Location: Left Arm; Cuff Size: Standard BP Diastolic 82 mm[Hg] Comments: Patient Position: Sitting; Cuff Location: Left Arm; Cuff Size: Standard Weight 232.0625 lb Height 63 in Body Mass Index Calculated 41.11 kg/m2 Body Surface Area Calculated 2.06 m2 :23 Temperature 96.6 f Comments: Method: Oral Pulse 72 /min Comments: Pattern: Regular Respiration Rate 16 /min Comments: Pattern: Unlabored BP Systolic 122 mm[Hg] Comments: Patient Position: Sitting; Cuff Location: Left Arm; Cuff Size: Standard BP Diastolic 78 mm[Hg] Comments: Patient Position: Sitting; Cuff Location: Left Arm; Cuff Size: Standard Weight 232.0625 lb Height 63 in Body Mass Index Calculated 41.11 kg/m2 Body Surface Area Calculated 2.06 m2 :12 Temperature 97 f Comments: Method: Oral Pulse 62 /min Comments: Pattern: Regular Respiration Rate 17 /min Comments: Pattern: Unlabored BP Systolic 122 mm[Hg] Comments: Patient Position: Sitting; Cuff Location: Left Arm; Cuff Size: Standard BP Diastolic 76 mm[Hg] Comments: Patient Position: Sitting; Cuff Location: Left Arm; Cuff Size: Standard Weight 232.0625 lb Height 63 in Body Mass Index Calculated 41.11 kg/m2 Body Surface Area Calculated 2.06 m2 :59 Pulse 60 /min Comments: Pattern: Regular Respiration Rate 16 /min Comments: Pattern: Unlabored BP Systolic 158 mm[Hg] Comments: Patient Position: Sitting; Cuff Location: Left Arm; Cuff Size: Standard BP Diastolic 98 mm[Hg] Comments: Patient Position: Sitting; Cuff Location: Left Arm; Cuff Size: Standard Weight 232 lb Height 63.5 in Body Mass Index Calculated 40.45 kg/m2 Body Surface Area Calculated 2.07 m2 :11 Temperature 97 f Comments: Method: Oral Pulse 70 /min Comments: Pattern: Regular Respiration Rate 16 /min Comments: Pattern: Unlabored BP Systolic 122 mm[Hg] Comments: Patient Position: Sitting; Cuff Location: Left Arm; Cuff Size: Standard BP Diastolic 74 mm[Hg] Comments: Patient Position: Sitting; Cuff Location: Left Arm; Cuff Size: Standard Weight 232 lb Height 63.5 in Body Mass Index Calculated 40.45 kg/m2 Body Surface Area Calculated 2.07 m2 :27 Temperature 98.1 f Comments: Method: Oral Pulse 68 /min Comments: Pattern: Regular Respiration Rate 20 /min Comments: Pattern: Unlabored BP Systolic 120 mm[Hg] Comments: Patient Position: Sitting; Cuff Location: Left Arm; Cuff Size: Standard BP Diastolic 74 mm[Hg] Comments: Patient Position: Sitting; Cuff Location: Left Arm; Cuff Size: Standard Weight 232 lb Height 63.5 in Body Mass Index Calculated 40.45 kg/m2 Body Surface Area Calculated 2.07 m2 :02 Temperature 97.6 f Comments: Method: Oral Pulse 74 /min Comments: Pattern: Regular Respiration Rate 18 /min Comments: Pattern: Unlabored BP Systolic 122 mm[Hg] Comments: Patient Position: Sitting; Cuff Location: Left Arm; Cuff Size: Standard BP Diastolic 78 mm[Hg] Comments: Patient Position: Sitting; Cuff Location: Left Arm; Cuff Size: Standard Weight 232 lb Height 63.5 in Body Mass Index Calculated 40.45 kg/m2 Body Surface Area Calculated 2.07 m2 :43 Temperature 98 f Comments: Method: Oral Pulse 70 /min Comments: Pattern: Regular Respiration Rate 16 /min Comments: Pattern: Unlabored BP Systolic 120 mm[Hg] Comments: Patient Position: Sitting; Cuff Location: Left Arm; Cuff Size: Standard BP Diastolic 72 mm[Hg] Comments: Patient Position: Sitting; Cuff Location: Left Arm; Cuff Size: Standard Weight 232 lb Height 63.5 in Body Mass Index Calculated 40.45 kg/m2 Body Surface Area Calculated 2.07 m2 :03 Temperature 96.2 f Comments: Method: Oral Pulse 62 /min Comments: Pattern: Regular Respiration Rate 17 /min Comments: Pattern: Unlabored O2 SAT 96 % Comments: Room air BP Systolic 120 mm[Hg] Comments: Patient Position: Sitting; Cuff Location: Left Arm; Cuff Size: Standard BP Diastolic 72 mm[Hg] Comments: Patient Position: Sitting; Cuff Location: Left Arm; Cuff Size: Standard Weight 232 lb Height 63.5 in Body Mass Index Calculated 40.45 kg/m2 Body Surface Area Calculated 2.07 m2 :21 Temperature 96.9 f Comments: Method: Oral Pulse 72 /min Comments: Pattern: Regular Respiration Rate 17 /min Comments: Pattern: Unlabored BP Systolic 124 mm[Hg] Comments: Patient Position: Sitting; Cuff Location: Left Arm; Cuff Size: Standard BP Diastolic 70 mm[Hg] Comments: Patient Position: Sitting; Cuff Location: Left Arm; Cuff Size: Standard Weight 232 lb Height 63.5 in Body Mass Index Calculated 40.45 kg/m2 Body Surface Area Calculated 2.07 m2 :13 Temperature 96.8 f Comments: Method: Oral Pulse 70 /min Comments: Pattern: Regular Respiration Rate 17 /min Comments: Pattern: Unlabored BP Systolic 134 mm[Hg] Comments: Patient Position: Sitting; Cuff Location: Left Arm; Cuff Size: Standard BP Diastolic 68 mm[Hg] Comments: Patient Position: Sitting; Cuff Location: Left Arm; Cuff Size: Standard Weight 232 lb Height 63.5 in Body Mass Index Calculated 40.45 kg/m2 Body Surface Area Calculated 2.07 m2 :31 Temperature 98.1 f Comments: Method: Oral Pulse 76 /min Comments: Pattern: Regular Respiration Rate 20 /min Comments: Pattern: Unlabored BP Systolic 108 mm[Hg] Comments: Patient Position: Sitting; Cuff Location: Left Arm; Cuff Size: Large BP Diastolic 72 mm[Hg] Comments: Patient Position: Sitting; Cuff Location: Left Arm; Cuff Size: Large Weight 232 lb Height 63.5 in Body Mass Index Calculated 40.45 kg/m2 Body Surface Area Calculated 2.07 m2 Head Circumference 0.00 cm :48 Pulse 70 /min Comments: Pattern: Regular Respiration Rate 16 /min Comments: Pattern: Unlabored BP Systolic 128 mm[Hg] Comments: Patient Position: Sitting; Cuff Location: Left Arm; Cuff Size: Large BP Diastolic 78 mm[Hg] Comments: Patient Position: Sitting; Cuff Location: Left Arm; Cuff Size: Large Weight 0 lb Height 0 in Head Circumference 0.00 cm :35 Pulse 60 /min Comments: Pattern: Regular Respiration Rate 16 /min Comments: Pattern: Unlabored BP Systolic 132 mm[Hg] Comments: Patient Position: Supine; Cuff Location: Left Arm; Cuff Size: Standard BP Diastolic 76 mm[Hg] Comments: Patient Position: Supine; Cuff Location: Left Arm; Cuff Size: Standard Weight 251 lb Height 63 in Body Mass Index Calculated 44.46 kg/m2 Body Surface Area Calculated 2.13 m2 Head Circumference 0.00 cm :24 Pulse 70 /min Comments: Pattern: Regular Respiration Rate 16 /min Comments: Pattern: Unlabored O2 SAT 96 % Comments: Room air BP Systolic 122 mm[Hg] Comments: Patient Position: Supine; Cuff Location: Left Arm; Cuff Size: Standard BP Diastolic 76 mm[Hg] Comments: Patient Position: Supine; Cuff Location: Left Arm; Cuff Size: Standard Weight 251 lb Height 63 in Body Mass Index Calculated 44.46 kg/m2 Body Surface Area Calculated 2.13 m2 Head Circumference 0.00 cm :31 Temperature 97.3 f Comments: Method: Oral Pulse 68 /min Comments: Pattern: Regular Respiration Rate 16 /min Comments: Pattern: Unlabored BP Systolic 118 mm[Hg] Comments: Patient Position: Sitting; Cuff Location: Left Arm; Cuff Size: Standard BP Diastolic 80 mm[Hg] Comments: Patient Position: Sitting; Cuff Location: Left Arm; Cuff Size: Standard Weight 240 lb Height 63 in Body Mass Index Calculated 42.51 kg/m2 Body Surface Area Calculated 2.09 m2 Head Circumference 0.00 cm :56 Temperature 97.7 f Comments: Method: Oral Pulse 72 /min Comments: Pattern: Regular Respiration Rate 16 /min Comments: Pattern: Unlabored BP Systolic 118 mm[Hg] Comments: Patient Position: Sitting; Cuff Location: Left Arm; Cuff Size: Standard BP Diastolic 82 mm[Hg] Comments: Patient Position: Sitting; Cuff Location: Left Arm; Cuff Size: Standard Weight 240 lb Height 63 in Body Mass Index Calculated 42.51 kg/m2 Body Surface Area Calculated 2.09 m2 Head Circumference 0.00 cm :33 Pulse 76 /min Comments: Pattern: Regular Respiration Rate 18 /min Comments: Pattern: Unlabored BP Systolic 120 mm[Hg] Comments: Patient Position: Sitting; Cuff Location: Left Arm; Cuff Size: Large BP Diastolic 72 mm[Hg] Comments: Patient Position: Sitting; Cuff Location: Left Arm; Cuff Size: Large Weight 0 lb Height 0 in Head Circumference 0.00 cm :50 Pulse 64 /min Comments: Pattern: Regular Respiration Rate 18 /min Comments: Pattern: Unlabored BP Systolic 118 mm[Hg] Comments: Patient Position: Sitting; Cuff Location: Right Arm; Cuff Size: Large BP Diastolic 62 mm[Hg] Comments: Patient Position: Sitting; Cuff Location: Right Arm; Cuff Size: Large Weight 0 lb Height 0 in Head Circumference 0.00 cm :02 Pulse 70 /min Comments: Pattern: Regular Respiration Rate 18 /min Comments: Pattern: Unlabored BP Systolic 116 mm[Hg] Comments: Patient Position: Sitting; Cuff Location: Right Arm; Cuff Size: Large BP Diastolic 68 mm[Hg] Comments: Patient Position: Sitting; Cuff Location: Right Arm; Cuff Size: Large Weight 0 lb Height 0 in Head Circumference 0.00 cm :42 Pulse 68 /min Comments: Pattern: Regular Respiration Rate 18 /min Comments: Pattern: Unlabored BP Systolic 118 mm[Hg] Comments: Patient Position: Sitting; Cuff Location: Right Arm; Cuff Size: Large BP Diastolic 78 mm[Hg] Comments: Patient Position: Sitting; Cuff Location: Right Arm; Cuff Size: Large Weight 0 lb Height 0 in Head Circumference 0.00 cm :19 Pulse 68 /min Comments: Pattern: Regular Respiration Rate 18 /min Comments: Pattern: Unlabored BP Systolic 118 mm[Hg] Comments: Patient Position: Sitting; Cuff Location: Right Arm; Cuff Size: Large BP Diastolic 60 mm[Hg] Comments: Patient Position: Sitting; Cuff Location: Right Arm; Cuff Size: Large Weight 0 lb Height 0 in Head Circumference 0.00 cm :30 Pulse 72 /min Comments: Pattern: Regular Respiration Rate 16 /min Comments: Pattern: Unlabored BP Systolic 124 mm[Hg] Comments: Patient Position: Sitting; Cuff Location: Left Arm; Cuff Size: Large BP Diastolic 80 mm[Hg] Comments: Patient Position: Sitting; Cuff Location: Left Arm; Cuff Size: Large Weight 0 lb Height 0 in Head Circumference 0.00 cm :22 Pulse 66 /min Comments: Pattern: Regular Respiration Rate 16 /min Comments: Pattern: Unlabored Weight 240 lb Height 63 in Body Mass Index Calculated 42.51 kg/m2 Body Surface Area Calculated 2.09 m2 Head Circumference 0.00 cm :34 Pulse 84 /min Comments: Pattern: Regular Respiration Rate 20 /min Comments: Pattern: Unlabored BP Systolic 142 mm[Hg] Comments: Patient Position: Sitting; Cuff Location: Left Arm; Cuff Size: Standard BP Diastolic 80 mm[Hg] Comments: Patient Position: Sitting; Cuff Location: Left Arm; Cuff Size: Standard Weight 243 lb Height 0 in Head Circumference 0.00 cm :30 Temperature 98.2 f Comments: Method: Oral Pulse 78 /min Comments: Pattern: Regular Respiration Rate 18 /min Comments: Pattern: Unlabored BP Systolic 132 mm[Hg] Comments: Patient Position: Sitting; Cuff Location: Left Arm; Cuff Size: Standard BP Diastolic 82 mm[Hg] Comments: Patient Position: Sitting; Cuff Location: Left Arm; Cuff Size: Standard Weight 243 lb Height 0 in Head Circumference 0.00 cm :54 Pulse 76 /min Comments: Pattern: Regular Respiration Rate 20 /min Comments: Pattern: Unlabored BP Systolic 102 mm[Hg] Comments: Patient Position: Sitting; Cuff Location: Left Arm; Cuff Size: Large BP Diastolic 72 mm[Hg] Comments: Patient Position: Sitting; Cuff Location: Left Arm; Cuff Size: Large Weight 0 lb Height 0 in Head Circumference 0.00 cm :00 Pulse 76 /min Comments: Pattern: Regular Respiration Rate 20 /min Comments: Pattern: Unlabored BP Systolic 122 mm[Hg] Comments: Patient Position: Sitting; Cuff Location: Left Arm; Cuff Size: Large BP Diastolic 72 mm[Hg] Comments: Patient Position: Sitting; Cuff Location: Left Arm; Cuff Size: Large Weight 0 lb Height 0 in Head Circumference 0.00 cm :28 Temperature 98 f Comments: Method: Oral Pulse 84 /min Comments: Pattern: Regular Respiration Rate 20 /min Comments: Pattern: Unlabored O2 SAT 97 % Comments: Room air BP Systolic 120 mm[Hg] Comments: Patient Position: Sitting; Cuff Location: Left Arm; Cuff Size: Large BP Diastolic 84 mm[Hg] Comments: Patient Position: Sitting; Cuff Location: Left Arm; Cuff Size: Large Weight 0 lb Height 0 in Head Circumference 0.00 cm :31 Temperature 98.2 f Comments: Method: Oral Pulse 80 /min Comments: Pattern: Regular Respiration Rate 24 /min Comments: Pattern: Unlabored O2 SAT 98 % Comments: Room air BP Systolic 124 mm[Hg] Comments: Patient Position: Sitting; Cuff Location: Left Arm; Cuff Size: Standard BP Diastolic 80 mm[Hg] Comments: Patient Position: Sitting; Cuff Location: Left Arm; Cuff Size: Standard Weight 0 lb Height 0 in Head Circumference 0.00 cm :27 Pulse 80 /min Comments: Pattern: Regular Respiration Rate 18 /min Comments: Pattern: Unlabored BP Systolic 102 mm[Hg] Comments: Patient Position: Sitting; Cuff Location: Left Arm; Cuff Size: Standard BP Diastolic 62 mm[Hg] Comments: Patient Position: Sitting; Cuff Location: Left Arm; Cuff Size: Standard Weight 0 lb Height 0 in Head Circumference 0.00 cm :48 Temperature 98.2 f Comments: Method: Oral Pulse 84 /min Comments: Pattern: Regular Respiration Rate 18 /min Comments: Pattern: Unlabored O2 SAT 97 % Comments: Room air BP Systolic 124 mm[Hg] Comments: Patient Position: Sitting; Cuff Location: Left Arm; Cuff Size: Large BP Diastolic 80 mm[Hg] Comments: Patient Position: Sitting; Cuff Location: Left Arm; Cuff Size: Large Weight 243 lb Height 0 in Head Circumference 0.00 cm :32 Temperature 96.9 f Comments: Method: Oral Pulse 76 /min Comments: Pattern: Regular Respiration Rate 19 /min Comments: Pattern: Unlabored O2 SAT 96 % Comments: Room air BP Systolic 134 mm[Hg] Comments: Patient Position: Sitting; Cuff Location: Left Arm; Cuff Size: Standard BP Diastolic 82 mm[Hg] Comments: Patient Position: Sitting; Cuff Location: Left Arm; Cuff Size: Standard Weight 244 lb Height 0 in Head Circumference 0.00 cm :34 Temperature 98.2 f Comments: Method: Oral Pulse 70 /min Comments: Pattern: Regular Respiration Rate 18 /min Comments: Pattern: Unlabored BP Systolic 124 mm[Hg] Comments: Patient Position: Sitting; Cuff Location: Left Arm; Cuff Size: Large BP Diastolic 80 mm[Hg] Comments: Patient Position: Sitting; Cuff Location: Left Arm; Cuff Size: Large Weight 0 lb Height 0 in Head Circumference 0.00 cm :21 Temperature 97.8 f Comments: Method: Oral Pulse 72 /min Comments: Pattern: Regular Respiration Rate 18 /min Comments: Pattern: Unlabored BP Systolic 120 mm[Hg] Comments: Patient Position: Sitting; Cuff Location: Left Arm; Cuff Size: Standard BP Diastolic 78 mm[Hg] Comments: Patient Position: Sitting; Cuff Location: Left Arm; Cuff Size: Standard Weight 0 lb Height 0 in Head Circumference 0.00 cm :35 Temperature 98.2 f Comments: Method: Oral Pulse 70 /min Comments: Pattern: Regular Respiration Rate 18 /min Comments: Pattern: Unlabored BP Systolic 120 mm[Hg] Comments: Patient Position: Sitting; Cuff Location: Left Arm; Cuff Size: Standard BP Diastolic 80 mm[Hg] Comments: Patient Position: Sitting; Cuff Location: Left Arm; Cuff Size: Standard Weight 0 lb Height 0 in Head Circumference 0.00 cm :58 Temperature 98.2 f Comments: Method: Oral Pulse 90 /min Comments: Pattern: Regular Respiration Rate 26 /min Comments: Pattern: Labored O2 SAT 97 % Comments: Room air BP Systolic 122 mm[Hg] Comments: Patient Position: Sitting; Cuff Location: Left Arm; Cuff Size: Standard BP Diastolic 80 mm[Hg] Comments: Patient Position: Sitting; Cuff Location: Left Arm; Cuff Size: Standard Weight 244 lb Height 0 in Head Circumference 0.00 cm :19 Temperature 97.5 f Comments: Method: Oral Pulse 80 /min Comments: Pattern: Regular Respiration Rate 20 /min Comments: Pattern: Unlabored O2 SAT 98 % Comments: Room air BP Systolic 118 mm[Hg] Comments: Patient Position: Sitting; Cuff Location: Left Arm; Cuff Size: Large BP Diastolic 76 mm[Hg] Comments: Patient Position: Sitting; Cuff Location: Left Arm; Cuff Size: Large Weight 243 lb Height 0 in Head Circumference 0.00 cm :50 Temperature 100.4 f Comments: Method: Oral Pulse 92 /min Comments: Pattern: Regular Respiration Rate 21 /min Comments: Pattern: Unlabored O2 SAT 94 % Comments: Room air BP Systolic 142 mm[Hg] Comments: Patient Position: Sitting; Cuff Location: Left Arm; Cuff Size: Standard BP Diastolic 82 mm[Hg] Comments: Patient Position: Sitting; Cuff Location: Left Arm; Cuff Size: Standard Weight 243 lb Height 0 in Head Circumference 0.00 cm :25 Temperature 98.6 f Comments: Method: Oral Pulse 74 /min Comments: Pattern: Regular Respiration Rate 18 /min Comments: Pattern: Unlabored BP Systolic 120 mm[Hg] Comments: Patient Position: Sitting; Cuff Location: Left Arm; Cuff Size: Standard BP Diastolic 80 mm[Hg] Comments: Patient Position: Sitting; Cuff Location: Left Arm; Cuff Size: Standard Weight 243 lb Height 0 in Head Circumference 0.00 cm :38 Temperature 97.6 f Comments: Method: Oral Pulse 64 /min Comments: Pattern: Regular Respiration Rate 20 /min Comments: Pattern: Unlabored BP Systolic 118 mm[Hg] Comments: Patient Position: Sitting; Cuff Location: Left Arm; Cuff Size: Standard BP Diastolic 76 mm[Hg] Comments: Patient Position: Sitting; Cuff Location: Left Arm; Cuff Size: Standard Weight 0 lb Height 0 in Head Circumference 0.00 cm :16 Temperature 98.4 f Comments: Method: Oral Pulse 62 /min Comments: Pattern: Regular Respiration Rate 16 /min Comments: Pattern: Unlabored BP Systolic 128 mm[Hg] Comments: Patient Position: Sitting; Cuff Location: Left Arm; Cuff Size: Standard BP Diastolic 78 mm[Hg] Comments: Patient Position: Sitting; Cuff Location: Left Arm; Cuff Size: Standard Weight 260.0625 lb Height 0 in Head Circumference 0.00 cm :35 Pulse 86 /min Comments: Pattern: Regular BP Systolic 126 mm[Hg] Comments: Patient Position: Sitting; Cuff Location: Right Arm; Cuff Size: Standard BP Diastolic 84 mm[Hg] Comments: Patient Position: Sitting; Cuff Location: Right Arm; Cuff Size: Standard Weight 0 lb Height 0 in Head Circumference 0.00 cm :35 Pulse 88 /min Comments: Pattern: Regular BP Systolic 130 mm[Hg] Comments: Patient Position: Standing; Cuff Location: Left Arm; Cuff Size: Standard BP Diastolic 84 mm[Hg] Comments: Patient Position: Standing; Cuff Location: Left Arm; Cuff Size: Standard Weight 0 lb Height 0 in Head Circumference 0.00 cm :34 Pulse 86 /min Comments: Pattern: Regular BP Systolic 114 mm[Hg] Comments: Patient Position: Supine; Cuff Location: Left Arm; Cuff Size: Standard BP Diastolic 82 mm[Hg] Comments: Patient Position: Supine; Cuff Location: Left Arm; Cuff Size: Standard Weight 86 lb Height 0 in Head Circumference 0.00 cm :43 Pulse 100 /min Comments: Pattern: Regular Respiration Rate 16 /min Comments: Pattern: Unlabored BP Systolic 126 mm[Hg] Comments: Patient Position: Sitting; Cuff Location: Left Arm; Cuff Size: Standard BP Diastolic 80 mm[Hg] Comments: Patient Position: Sitting; Cuff Location: Left Arm; Cuff Size: Standard Weight 255 lb Height 63 in Body Mass Index Calculated 45.17 kg/m2 Body Surface Area Calculated 2.14 m2 Head Circumference 0.00 cm Results Date Description Value Details [id number] Metabolic Panel, Comprehensive Comments: Jan 2017; PATIENT NOT FASTINGPERFORMED BY: [facility] BellevilleWktbnl8212 [facility] [id number] ([id number]) ALT (SGPT) 14 [iU]/L (Normal) Range: 0-32 AST (SGOT) 18 [iU]/L (Normal) Range: 0-40 Alkaline Phosphatase, S 52 [iU]/L (Normal) Range: 39-117 Bilirubin, Total 0.4 mg/dL (Normal) Range: 0.0-1.2 A/G Ratio 1.6 (Normal) Range: 1.2-2.2 Globulin, Total 2.7 g/dL (Normal) Range: 1.5-4.5 Albumin, Serum 4.3 g/dL (Normal) Range: 3.5-4.8 Protein, Total, Serum 7.0 g/dL (Normal) Range: 6.0-8.5 Calcium, Serum 10.0 mg/dL (Normal) Range: 8.7-10.3 Carbon Dioxide, Total 24 mmol/L (Normal) Range: 18-29 Chloride, Serum 102 mmol/L (Normal) Range: 96-106 Potassium, Serum 4.4 mmol/L (Normal) Range: 3.5-5.2 Sodium, Serum 143 mmol/L (Normal) Range: 134-144 BUN/Creatinine Ratio 22 (Normal) Range: 12-28 eGFR If Africn Am 76 mL/min/1.73 (Normal) eGFR If NonAfricn Am 66 mL/min/1.73 (Normal) Creatinine, Serum 0.87 mg/dL (Normal) Range: 0.57-1.00 BUN 19 mg/dL (Normal) Range: 8-27 Glucose, Serum 77 mg/dL (Normal) Range: 65-99 85-Ijb-209393:28 CALCIFEDIOL (35532) Comments: Jan 2017; PATIENT NOT FASTINGPERFORMED BY: [facility] Qnzore7844 [address] [place] [id number] Vitamin D, 25-Hydroxy 33.0 ng/mL (Normal) Range: 30.0-100.0 Comments: Vitamin D deficiency has been defined by the [place] [facility] and an Endocrine Society practice guideline as alevel of serum 25-OH vitamin D less than 20 ng/mL (1,2).The Endocrine Society went on to further define vitamin Dinsufficiency as a level between 21 and 29 ng/mL (2).1. IOM ([place] [employer]). 2010. Dietary reference intakes for calcium and D. [place]: The National Academies Press.2. Miki MF, Jamie LUND, Cata VEGA, et al. Evaluation, treatment, and prevention of vitamin D deficiency: an Endocrine Society clinical practice guideline. JCEM. 2010; 96(7):1911-30. 25-Oln-918683:21 C-REACTIVE PROTEIN (19805) Comments: PATIENT NOT FASTINGPERFORMED BY: CB [facility] Motmum05[address] RoadDublin [place] [id number] C-Reactive Protein, Quant 6.7 mg/L (Abnormal) Range: 0.0-4.9 29-Cho-427016:21 SED RATE ERYTHROCYTE (17979) Comments: PATIENT NOT FASTINGPERFORMED BY: CB [facility] Btxula9650 [address] RoadDublin [place] [id number] Sedimentation Rate-Westergren 5 mm/h (Normal) Range: 0-40 71-Jqy-002449:21 METABOLIC PANEL, COMPREHENSIVE Comments: PATIENT NOT FASTINGPERFORMED BY: [facility] NetworkSt. Louis Va Medical CenterNelcbr7759 [facility] [id number] ([id number]) ALT (SGPT) 12 [iU]/L (Normal) Range: 0-32 AST (SGOT) 15 [iU]/L (Normal) Range: 0-40 Alkaline Phosphatase, S 66 [iU]/L (Normal) Range: 39-117 Bilirubin, Total 0.3 mg/dL (Normal) Range: 0.0-1.2 A/G Ratio 1.4 (Normal) Range: 1.2-2.2 Globulin, Total 2.9 g/dL (Normal) Range: 1.5-4.5 Albumin, Serum 4.2 g/dL (Normal) Range: 3.5-4.8 Protein, Total, Serum 7.1 g/dL (Normal) Range: 6.0-8.5 Calcium, Serum 9.7 mg/dL (Normal) Range: 8.7-10.3 Carbon Dioxide, Total 26 mmol/L (Normal) Range: 18-29 Chloride, Serum 98 mmol/L (Normal) Range: 96-106 Potassium, Serum 4.4 mmol/L (Normal) Range: 3.5-5.2 Sodium, Serum 141 mmol/L (Normal) Range: 134-144 BUN/Creatinine Ratio 19 (Normal) Range: 12-28 eGFR If Africn Am 81 mL/min/1.73 (Normal) eGFR If NonAfricn Am 70 mL/min/1.73 (Normal) Creatinine, Serum 0.83 mg/dL (Normal) Range: 0.57-1.00 BUN 16 mg/dL (Normal) Range: 8-27 Glucose, Serum 69 mg/dL (Normal) Range: 65-99 80-Vea-820006:21 CBC, PLATELETS & AUT DIFF Comments: PATIENT NOT FASTINGPERFORMED BY: [facility] NetworkC.S[facility]6370 [facility] [id number] ([id number]) Immature Grans (Abs) 0.0 {x10E3/uL} (Normal) Range: 0.0-0.1 Immature Granulocytes 0 % (Normal) Baso (Absolute) 0.0 {x10E3/uL} (Normal) Range: 0.0-0.2 Eos (Absolute) 0.2 {x10E3/uL} (Normal) Range: 0.0-0.4 Monocytes(Absolute) 0.5 {x10E3/uL} (Normal) Range: 0.1-0.9 Lymphs (Absolute) 3.0 {x10E3/uL} (Normal) Range: 0.7-3.1 Neutrophils (Absolute) 2.4 {x10E3/uL} (Normal) Range: 1.4-7.0 Basos 1 % (Normal) Eos 4 % (Normal) Monocytes 7 % (Normal) Lymphs 49 % (Normal) Neutrophils 39 % (Normal) Platelets 276 {x10E3/uL} (Normal) Range: 150-379 RDW 13.7 % (Normal) Range: 12.3-15.4 MCHC 33.2 g/dL (Normal) Range: 31.5-35.7 MCH 29.5 pg (Normal) Range: 26.6-33.0 MCV 89 fL (Normal) Range: 79-97 Hematocrit 46.1 % (Normal) Range: 34.0-46.6 Hemoglobin 15.3 g/dL (Normal) Range: 11.1-15.9 RBC 5.19 {x10E6/uL} (Normal) Range: 3.77-5.28 WBC 6.2 {x10E3/uL} (Normal) Range: 3.4-10.8 02-Nov-20169:08 T4, FREE (THYROXINE) (39625) Comments: PATIENT NOT FASTINGPERFORMED BY: [facility] Lhblcx[address] [facility] [id number] T4,Free(Direct) 1.31 ng/dL (Normal) Range: 0.82-1.77 02-Nov-20169:08 T3, FREE (TRIDOTHYRONINE) (52423) Comments: PATIENT NOT FASTINGPERFORMED BY: BodyMediaSelect at BellevilleAgmyti5786 [facility] [id number] Triiodothyronine,Free,Serum 2.2 pg/mL (Normal) Range: 2.0-4.4 :08 TSH (32588) Comments: PATIENT NOT FASTINGPERFORMED BY: BodyMediaSelect at BellevilleVglidi1065 [facility] [id number] TSH 3.520 {uIU/mL} (Normal) Range: 0.450-4.500 :28 Metabolic Panel, Comprehensive Comments: PATIENT NOT FASTINGPERFORMED BY: [facility] NetworkC.S. [facility]6370 [facility] [id number] ([id number]) ALT (SGPT) 15 [iU]/L (Normal) Range: 0-32 AST (SGOT) 19 [iU]/L (Normal) Range: 0-40 Alkaline Phosphatase, S 51 [iU]/L (Normal) Range: 39-117 Bilirubin, Total 0.4 mg/dL (Normal) Range: 0.0-1.2 A/G Ratio 1.6 (Normal) Range: 1.1-2.5 Globulin, Total 2.5 g/dL (Normal) Range: 1.5-4.5 Albumin, Serum 3.9 g/dL (Normal) Range: 3.5-4.8 Protein, Total, Serum 6.4 g/dL (Normal) Range: 6.0-8.5 Calcium, Serum 8.9 mg/dL (Normal) Range: 8.7-10.3 Carbon Dioxide, Total 23 mmol/L (Normal) Range: 18-29 Chloride, Serum 103 mmol/L (Normal) Range: 96-106 Potassium, Serum 4.1 mmol/L (Normal) Range: 3.5-5.2 Sodium, Serum 140 mmol/L (Normal) Range: 134-144 BUN/Creatinine Ratio 26 (Normal) Range: 11-26 eGFR If Africn Am 91 mL/min/1.73 (Normal) eGFR If NonAfricn Am 79 mL/min/1.73 (Normal) Creatinine, Serum 0.76 mg/dL (Normal) Range: 0.57-1.00 BUN 20 mg/dL (Normal) Range: 8-27 Glucose, Serum 93 mg/dL (Normal) Range: 65-99 14-Qri-218013:28 CBC, Platelets & Auto Diff Comments: PATIENT NOT FASTINGPERFORMED BY: [facility]6370 [facility] [id number] ([id number]) Immature Grans (Abs) 0.0 {x10E3/uL} (Normal) Range: 0.0-0.1 Immature Granulocytes 0 % (Normal) Baso (Absolute) 0.0 {x10E3/uL} (Normal) Range: 0.0-0.2 Eos (Absolute) 0.1 {x10E3/uL} (Normal) Range: 0.0-0.4 Monocytes(Absolute) 0.3 {x10E3/uL} (Normal) Range: 0.1-0.9 Lymphs (Absolute) 0.8 {x10E3/uL} (Normal) Range: 0.7-3.1 Neutrophils (Absolute) 5.6 {x10E3/uL} (Normal) Range: 1.4-7.0 Basos 0 % (Normal) Eos 2 % (Normal) Monocytes 5 % (Normal) Lymphs 11 % (Normal) Neutrophils 82 % (Normal) Platelets 254 {x10E3/uL} (Normal) Range: 150-379 RDW 13.7 % (Normal) Range: 12.3-15.4 MCHC 33.8 g/dL (Normal) Range: 31.5-35.7 MCH 29.9 pg (Normal) Range: 26.6-33.0 MCV 88 fL (Normal) Range: 79-97 Hematocrit 44.1 % (Normal) Range: 34.0-46.6 Hemoglobin 14.9 g/dL (Normal) Range: 11.1-15.9 RBC 4.99 {x10E6/uL} (Normal) Range: 3.77-5.28 WBC 6.8 {x10E3/uL} (Normal) Range: 3.4-10.8 68-Nta-367596:28 TSH ([id number]) Comments: PATIENT NOT FASTINGPERFORMED BY: [facility] Ovgpri8503 [facility] [id number] TSH 0.034 {uIU/mL} (Abnormal) Range: 0.450-4.500 52-Ewc-013609:40 CBC W/Diff, Automated Comments: [facility] [address] [place], [place], [id number] Absolute Lymph 2.31 {X10_3/ul} (Normal) Range: 0.83-4.51 Absolute Neut 5.2 {X10_3/uL} (Normal) Range: 2.0-7.7 IM GRAN % 0.700 % (Normal) Range: 0.0-0.9 Comments: IG% - Immature Granulocytes (promyelocytes, myelocytes andmetamyelocytes) > 1% indicates that a LEFT SHIFT is Present. BASO% 0.2 % (Normal) Range: 0-1 EO% 3.7 % (Normal) Range: 0-5 MONO% 8.5 % (Normal) Range: 0-10 LY% 26.6 % (Normal) Range: 19-41 NEUT% 60.3 % (Normal) Range: 47-70 MPV 7.9 fL (Normal) Range: 6.2-12.0 PLT 340 K/mm3 (Normal) Range: 150-450 RDW SD 49.7 fL (Abnormal) Range: 35.1-43.9 RDW CV 15.8 % (Abnormal) Range: 11.6-14.6 MCHC 31.6 {g/gl} (Abnormal) Range: 32-36 MCH 27.1 pg (Normal) Range: 27.0-32.0 MCV 85.9 fL (Normal) Range: 81-99 HCT 39.6 % (Normal) Range: 37-47 HGB 12.5 g/dL (Normal) Range: 12.0-15.0 RBC 4.61 {M/mm3} (Normal) Range: 4.2-5.4 WBC 8.7 K/mm3 (Normal) Range: 4.4-11.0 71-Awz-820384:40 Comprehensive Metabolic Profil Comments: [facility] [address], [place], [id number] GAP 7 (Normal) Range: 5-15 CO2 29.0 mmol/L (Normal) Range: 21.0-32.0 CL 104 mmol/L (Normal) Range: 98-107 K 4.2 mmol/L (Normal) Range: 3.5-5.1 NA 140 mmol/L (Normal) Range: 136-145 T BILI 0.60 mg/dL (Normal) Range: 0.20-1.00 ALT 30 U/L (Normal) Range: 12-78 ALK P 82 U/L (Normal) Range: 50-136 AST 19 U/L (Normal) Range: 15-37 CA 8.9 mg/dL (Normal) Range: 8.5-10.1 A/G 0.7 {RATIO} (Abnormal) Range: 0.9-2.4 GLOB 4.4 g/dL (Abnormal) Range: 2.3-3.5 ALB 2.9 g/dL (Abnormal) Range: 3.4-5.0 T PROT 7.3 g/dL (Normal) Range: 6.4-8.2 BUN/CRE 16.3 {RATIO} (Normal) Range: 10-20 Estimated CRCL 42.92 ml/min (Normal) EST GFR - AA 72 mL/min (Normal) Comments: GFR Calc EST GFR 59 mL/min (Abnormal) Comments: Non- GFR Calc CREAT,SERUM 0.98 mg/dL (Normal) Range: 0.55-1.20 Comments: The validity of the calculated GFR AND GFRAA in patients over70 years has not been determined. Clinical correlation isessential. BUN 16 mg/dL (Normal) Range: 7-18 GLU 106 mg/dL (Normal) Range: 70-110 95-Qwq-275389:07 URINE BECKY CULTURE-IDENTIFICATN Comments: PATIENT NOT FASTINGPERFORMED BY: [facility] [id number] ([id number]) Result 1 CNSNSS (Abnormal) Comments: Coagulase negative Staphylococcus species, not Staphylococcussaprophyticus.1,000 Colonies/mLBased on resistance to oxacillin this isolate would be resistant toall currently available beta-lactam antimic robial agents, with theexception of the newer cephalosporins with anti-MRSA activity, such asCeftaroline S = Susceptible; I = Intermediate; R = Resistant P = Positive; N = N egative MICS are expressed in micrograms per mL Antibiotic RSLT#1 RSLT#2 RSLT#3 RSLT#4Ciprofloxacin RGentamicin SLevofloxacin RNitrofurantoin SOxacillin RPenicillin RRifampin STetracycline STrimethoprim/Sulfa SVancomycin S Urine Final report Culture,Comprehens (Abnormal) svetlana 25-Rfr-048481:07 Metabolic Panel, Comprehensive Comments: PATIENT NOT FASTINGPERFORMED BY: [facility] Amqwil4613[facility], [facility] [id number] ([id number]) ALT (SGPT) 14 [iU]/L (Normal) Range: 0-32 AST (SGOT) 17 [iU]/L (Normal) Range: 0-40 Alkaline Phosphatase, S 75 [iU]/L (Normal) Range: 39-117 Bilirubin, Total 0.3 mg/dL (Normal) Range: 0.0-1.2 A/G Ratio 1.4 (Normal) Range: 1.1-2.5 Globulin, Total 3.0 g/dL (Normal) Range: 1.5-4.5 Albumin, Serum 4.1 g/dL (Normal) Range: 3.5-4.8 Protein, Total, Serum 7.1 g/dL (Normal) Range: 6.0-8.5 Calcium, Serum 9.6 mg/dL (Normal) Range: 8.7-10.3 Carbon Dioxide, Total 28 mmol/L (Normal) Range: 18-29 Chloride, Serum 103 mmol/L (Normal) Range: 97-108 Potassium, Serum 4.8 mmol/L (Normal) Range: 3.5-5.2 Sodium, Serum 142 mmol/L (Normal) Range: 134-144 BUN/Creatinine Ratio 22 (Normal) Range: 11-26 eGFR If Africn Am 67 mL/min/1.73 (Normal) eGFR If NonAfricn Am 58 mL/min/1.73 (Abnormal) Creatinine, Serum 0.98 mg/dL (Normal) Range: 0.57-1.00 BUN 22 mg/dL (Normal) Range: 8-27 Glucose, Serum 76 mg/dL (Normal) Range: 65-99 32-Dqu-028353:07 CBC, Platelets & Auto Comments: PATIENT NOT FASTINGPERFORMED BY: [facility] Lygcnw4819 [facility] [id number] Information: [id number], [id number] Diff ([id number]) Immature Grans (Abs) 0.0 {x10E3/uL} (Normal) Range: 0.0-0.1 Immature Granulocytes 0 % (Normal) Baso (Absolute) 0.0 {x10E3/uL} (Normal) Range: 0.0-0.2 Eos (Absolute) 0.3 {x10E3/uL} (Normal) Range: 0.0-0.4 Monocytes(Absolute) 0.6 {x10E3/uL} (Normal) Range: 0.1-0.9 Lymphs (Absolute) 3.1 {x10E3/uL} (Normal) Range: 0.7-3.1 Neutrophils (Absolute) 4.0 {x10E3/uL} (Normal) Range: 1.4-7.0 Basos 1 % (Normal) Eos 3 % (Normal) Monocytes 8 % (Normal) Lymphs 39 % (Normal) Neutrophils 49 % (Normal) Platelets 327 {x10E3/uL} (Normal) Range: 150-379 RDW 17.6 % (Abnormal) Range: 12.3-15.4 MCHC 32.7 g/dL (Normal) Range: 31.5-35.7 MCH 26.8 pg (Normal) Range: 26.6-33.0 MCV 82 fL (Normal) Range: 79-97 Hematocrit 42.8 % (Normal) Range: 34.0-46.6 Hemoglobin 14.0 g/dL (Normal) Range: 11.1-15.9 RBC 5.22 {x10E6/uL} (Normal) Range: 3.77-5.28 WBC 8.1 {x10E3/uL} (Normal) Range: 3.4-10.8 47-Har-284481:07 PT (Prothrobim Time) (32765) Comments: PATIENT NOT FASTINGPERFORMED BY: [facility] Fxuvoc7261 [facility] [id number] Prothrombin Time 10.4 {sec} (Normal) Range: 9.1-12.0 INR 1.0 (Normal) Range: 0.8-1.2 Comments: Reference interval is for non-anticoagulated patients. . Suggested INR therapeutic range for Vitamin K anta gonist therapy: Standard Dose (moderate intensity therapeutic range): 2.0 - 3.0 Higher intensity therapeutic range 2.5 - 3.5 :53 Urinalysis, Office (37798) UA - LEUKOCYTE ESTERASE Small (Normal) UA - NITRITE Negative (Normal) URINE UROBILINGN IVAN TIMED Normal mg/dL (Normal) UA - PROTEIN Negative mg/dL (Normal) UA - PH 5.0 (Normal) Comments: 5.5 UA - BLOOD Non Hemolyzed Trace (Normal) UA - SPECIFIC GRAVITY 1.005 (Normal) UA - KETONES Negative mg/dL (Normal) UA - BILIRUBIN Negative (Normal) UA - GLUCOSE Negative (Normal) 88-Kkm-594963:17 Urinalysis, Office (63458) UA - LEUKOCYTE ESTERASE Large (Normal) UA - NITRITE Negative (Normal) URINE UROBILINGN IVAN TIMED Normal mg/dL (Normal) UA - PROTEIN 100 mg/dL (Normal) UA - PH 6 (Abnormal) UA - BLOOD Hemolyzed Large (Normal) UA - SPECIFIC GRAVITY 1.025 (Normal) UA - KETONES Negative mg/dL (Normal) UA - BILIRUBIN Negative (Normal) UA - GLUCOSE Negative (Normal) 31-May-2015 EGD ([facility]) See Note (Normal) Comments: [facility] [address] [place], [address] 12:32 Comments: Patient: MAURICIO SERRANO : 1945 (69/F) Acct Num: [id number] Phys: Eugenio Laguna Unit Num: [id number] Loc: LABSPEC Specimen: [id number] Received: 05/31/151609 Spec Type: EGD BIOPSY TISSUES TISSUES: COMMENT The results of immunohistochemistry for Helicobacter pylori will be reported separately ([id number]). Alcian blue/PAS stain with matched control was used in the evaluation of this case. GROSS DESCRIPTION Received is one container labeled with the patient name and designated gastric antrum biopsy. The specimen consists of two irregular f ragments of light holt soft tissue that in aggregate measure 0.6 x 0.5 x 0.1 cm. The specimen is totally submitted in one cassette. / AM: 06/01/15 TC:3 CPT: 13232, 93673 HEADER OPERATION: EGD w ith biopsy PRE-OP DIAGNOSIS: History of peptic ulcer disease TISSUE SUBMITTED: Biopsy gastric antrum prepyloric, rule out gastritis MICROSCOPIC DESCRIPTION Slides are reviewed. Sections show small collections and groups of plasma cells in the mucosa. Active inflammation is not present. These findings are consistent with mild chronic gastritis. MICROSCOPIC DIAGNOSIS Gastric antrum, b iopsy: Gastritis. No evidence of intestinal metaplasia. AM: 06/02/15 Signed [facility] 06/02/15 <signature on file> 31-May-2015 IMMUNOHISTOCHEMISTRY See Note (Normal) Comments: [facility] Yronmxraui9782LYNETTE Xavier, [id number] 0:00 Comments: Patient: MAURICIO SERRANO : 1945 (69/F) Acct Num: [id number] Phys: JaseKenrickayla Unit Num: [id number] Loc: LABSPEC Specimen: [id number] Received: 06/02/151156 Spec Type : IMMUNO TISSUES TISSUES: SPECIMEN INFORMATION: Tissue Source: Gastric antrum, biopsy Clinical Info: Peptic ulcer disease Specimen Number: [id number] CPT code: 27701 METHODOL OGY: Deparaffinized sections of prefer/formalin-fixed tissue or PAP/DQ stained slides are incubated with monoclonal/polyclonal antibodies/oligonucleotide probes. Localization is made via biotin free immunoperoxidase method. Appropriate controls are performed and reacted as expected. Results on target cell population are indicated in the following table: RESULTS: ANTIBODY / CLONE RESULT H Pylori (polyclonal) negative These tests were developed and their performance characteristics determined by [facility]. They may not have been cleared or approved by the U.S. Food and Drug Administration. The FDA has determined that such clearance or approval is not necessary. INTERPRETATION: Gastric antrum, biopsy: Negative for H elicobacter pylori. AM: 06/02/15 PHYSICIAN AND INSTITUTION [address] [address] Signed [facility] 06/02/15 <signature on file> 01-Mar-2015 Gastric Biopsy See Note (Normal) Comments: Test performed at:[facility] Ujexgvbrmr[address] LYNETTE Lai [id number] 10:56 Comments: Patient: MAURICIO SERRANO : 1945 (69/F) Acct Num: [id number] Phys: Eugenio Laguna Unit Num: [id number] Loc: LABSPEC Specimen: [id number] Received: 03/01/15 - 170 Spec Type: Gastric Bx TISSUES TISSUES: COMMENT A AND B - The results of immunohistochemistry for Helicobacter pylori will be reported separately ([id number]). GROSS DESCRIPTION A - Recei michelle is one container labeled with the patient name and designated biopsy gastric ulcer. The specimen consists of one irregular fragment of light holt soft tissue that measures 0.2 x 0.2 x 0.1 cm. The specimen is totallysubmitted in one cassette. B - Received is one container labeled with the patient name and designated biopsy gastric antrum body. The specimen consists of multiple irregular f ragments of light holt soft tissue that in aggregate measure 0.5 x 0.3 x 0.1 cm. The specimen is totally submitted in one cassette. / : 03/02/15 TC:2 CPT: 84863 x2 HEADER OPERATION: EGD with biopsy PRE-OP DIAGNOSIS: Abdominal pain TISSUE SUBMITTED: A - Biopsy gastric ulcer, B - Biopsy gastric antrum / body, rule out gastritis MICROSCOPIC DESCRIPTION A - Slides are reviewed. B - The specimen shows fragments of gastric mucosa with moderate chronic inflammatory cell infiltrates in the lamina propria, consisting of lymphocytes and plasma cells. A few lymphoid aggregates are also noted, favor benign. Changes consistent with reactive gastropathy are also noted. MICROSCOPIC DIAGNOSIS A. Gastric ulcer, biopsy: Fragments of gastric mucosa with acute and chronic in flammation, congestionand hemorrhage. See Comment. B. Gastric antrum body, biopsy: Moderate gastritis and reactive gastropathy. A few lymphoid aggregates, favor benign. : 03/03/15 Signed Erik Crowell 03/03/15 <signature on file> 01-Mar-2015 IMMUNOHISTOCHEMISTRY See Note (Normal) Comments: Test performed at:[facility] [address] [place], [place] [address] 0:00 Comments: Patient: MAURICIO SERRANO : 1945 (69/F) Acct Num: [id number] Phys: Eugenio Laguna Unit Num: [id number] Loc: LABSPEC Specimen: [id number] Received: 03/03/15 - 1218 Spec Type : IMMUNO TISSUES TISSUES: SPECIMEN INFORMATION: Tissue Source: A. Gastric ulcer, biopsy, B. Gastric antrum/body, biopsy Clinical Info: Abdominal pain Specimen Number: [id number] A AND B CPT code: 28525,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 INR 2.7 (Normal) Comments: aw :43 PT/INR, Office (71317) INR 1.0 (Normal) Comments: [id number]:00 PT/INR, Office (01468) INR 4.8 (Normal) :33 PT/INR, Office (68240) INR 1.6 (Normal) Comments: :11 PT/INR, Office (57311) INR 1.2 (Normal) Comments: :30 PT/INR, Office (87212) INR 2.6 (Normal) :22 PT/INR, Office (53870) INR 3.5 (Normal) :24 PT/INR, Office (21158) INR 2.5 (Normal) :02 TSH ([id number]) Comments: PATIENT NOT FASTINGPERFORMED BY: [facility] [place]Msctuj[facility] [id number] TSH 4.248 {uIU/mL} (Normal) Range: 0.450-4.500 :02 METABOLIC PANEL, COMPREHENSIVE Comments: PATIENT NOT FASTINGPERFORMED BY: [facility] [place]Ucuigj6924 [facility] [id number] ([id number]) A/G Ratio 1.5 (Normal) Range: 1.1-2.5 Albumin, Serum 4.3 g/dL (Normal) Range: 3.6-4.8 Alkaline Phosphatase, S 70 [iU]/L (Normal) Range: 25-165 ALT (SGPT) 22 [iU]/L (Normal) Range: 0-40 AST (SGOT) 19 [iU]/L (Normal) Range: 0-40 Bilirubin, Total 0.6 mg/dL (Normal) Range: 0.1-1.2 BUN 16 mg/dL (Normal) Range: 5-26 BUN/Creatinine Ratio 18 (Normal) Range: 8-27 Calcium, Serum 9.6 mg/dL (Normal) Range: 8.5-10.6 Carbon Dioxide, Total 27 mmol/L (Normal) Range: 20-32 Chloride, Serum 105 mmol/L (Normal) Range: 97-108 Creatinine, Serum 0.90 mg/dL (Normal) Range: 0.57-1.00 Globulin, Total 2.9 g/dL (Normal) Range: 1.5-4.5 Glom Filt Rate, Est >59 mL/min/1.73 Comments: Please note reference interval change (Normal) Glucose, Serum 96 mg/dL (Normal) Range: 65-99 If -Ecuadorean >59 mL/min/1.73 Comments: Note: Persistent reduction for 3 months or more in an eGFR<60 mL/min/1.73 m2 defines CKD. Patients with eGFR values>/=60 mL/min/1.73 m2 may also have CKD if evidence of persistentproteinur ia is (Normal) present. Additional information may be found [email or web address]. Potassium, Serum 4.2 mmol/L (Normal) Range: 3.5-5.2 Protein, Total, Serum 7.2 g/dL (Normal) Range: 6.0-8.5 Sodium, Serum 142 mmol/L (Normal) Range: 135-145 [id number]-[id number]:02 CBC WITH MANUAL DIFF ([id number]) Comments: PATIENT NOT FASTINGClinical Information: ADD DRAW FEE 120588 ADD J 56609 PERFORMED BY: [facility] [id number] [facility] [id number] Baso (Absolute) 0.0 {x10E3/uL} (Normal) Range: 0.0-0.2 Basos 0 % (Normal) Range: 0-3 Eos 4 % (Normal) Range: 0-7 Eos (Absolute) 0.3 {x10E3/uL} (Normal) Range: 0.0-0.4 Hematocrit 41.9 % (Normal) Range: 34.0-44.0 Hemoglobin 14.4 g/dL (Normal) Range: 11.5-15.0 Lymphs 29 % (Normal) Range: 14-46 Lymphs (Absolute) 2.4 {x10E3/uL} (Normal) Range: 0.7-4.5 MCH 29.5 pg (Normal) Range: 27.0-34.0 MCHC 34.3 g/dL (Normal) Range: 32.0-36.0 MCV 86 fL (Normal) Range: 80-98 Monocytes 6 % (Normal) Range: 4-13 Monocytes(Absolute) 0.5 {x10E3/uL} (Normal) Range: 0.1-1.0 Neutrophils 61 % (Normal) Range: 40-74 Neutrophils (Absolute) 5.1 {x10E3/uL} (Normal) Range: 1.8-7.8 Platelets 308 {x10E3/uL} (Normal) Range: 140-415 RBC 4.88 {x10E6/uL} (Normal) Range: 3.80-5.10 RDW 15.2 % (Abnormal) Range: 11.7-15.0 WBC 8.4 {x10E3/uL} (Normal) Range: 4.0-10.5 :44 PT/INR, Office (57530) INR 1.8 (Normal) PT (PROTHROMBIN TIME) inr 1.8 s (Normal) Range: 11.5-13.5 :33 Rapid Strep Test, Office (17269) Comments: neg Rapid Strep Test, Office Negative (Normal) :53 PT/INR, Office (17324) INR 1.6 (Normal) PT (PROTHROMBIN TIME) INR-1.6 s (Normal) Range: 11.5-13.5 :59 PT/INR, Office (52991) INR 3.3 (Normal) Comments: aw :08 CHEST WITH CONTRAST Radiology Report See Note (Normal) Comments: Exam Number: [id number] CT CHEST WITH CONTRAST. REASON FOR EXAMINATIONLeft chest pain and back pain. History of pulmonary embolus. Followup. The patient complains of persistent shortness of breath. Con trast enhanced MDCT is performed with intravenous administration of100 cc of Isovue 370. Axial, coronal, and sagittal reconstructionsare obtained of the right and left pulmonary arterial tree. COMPARI SONAugust 2007. FINDINGSThere is adequate contrast opacification of the pulmonary arterialtree. There is no filling defect or vessel cutoff to indicatepulmonary embolus. Previously described filli ng defects haveresolved in the interval since February 26, 2008. There are no newpulmonary emboli. There is no CT significant mediastinal or hilar adenopathy. There isno abnormal cardiac chamber enlar gement. Pericardium is normal inthickness without effusion. Lungs are clear. Incidentally, there isan intrafissural lymph node on the right. Scans through the upper abdomen are noncontributory. I MPRESSION1. Negative for pulmonary embolus. Previously described filling defects are resolved since January,.2. Clear lungs. Reported By: ORIANA BERNARD M.D. [id number] CORONALS,SAG,MULTI,OBL,3-D REC Radiology Report See Note (Normal) Comments: Exam Number: [id number] CT CHEST WITH CONTRAST. REASON FOR EXAMINATIONLeft chest pain and back pain. History of pulmonary embolus. Followup. The patient complains of persistent shortness of breath. Con trast enhanced MDCT is performed with intravenous administration of100 cc of Isovue 370. Axial, coronal, and sagittal reconstructionsare obtained of the right and left pulmonary arterial tree. COMPARI SONAugust 2007. FINDINGSThere is adequate contrast opacification of the pulmonary arterialtree. There is no filling defect or vessel cutoff to indicatepulmonary embolus. Previously described filli ng defects haveresolved in the interval since February 26, 2008. There are no newpulmonary emboli. There is no CT significant mediastinal or hilar adenopathy. There isno abnormal cardiac chamber enlar gement. Pericardium is normal inthickness without effusion. Lungs are clear. Incidentally, there isan intrafissural lymph node on the right. Scans through the upper abdomen are noncontributory. I MPRESSION1. Negative for pulmonary embolus. Previously described filling defects are resolved since January,.2. Clear lungs. Reported By: ORIANA BERNARD M.D. [id number]-Itl-[id number]:08 PELVIS WITH CONTRAST Radiology Report See Note (Normal) Comments: Exam Number: [id number] CT OF ABDOMEN AND PELVIS WITH INTRAVENOUS AND ORAL CONTRAST REASON FOR EXAMINATIONAbdominal pain worse in the left lower quadrant. Contrast enhanced MDCT was performed with intrav enous administrationof 100 cc of Isovue 370. Axial reconstructions were obtained from thehepatic dome to symphysis pubis. Oral contrast was also administered.The study is compared to prior dated Augus 2002. Liver, spleen, gallbladder, pancreas and adrenal glands demonstratenormal size and attenuation without focal abnormality. Kidneys aresymmetric in size and imaging cortical nephrographic pha se. Excretionnot assessed. There is no free fluid in the upper abdomen. CT PELVISBladder is partially distended. Pelvic ureters are not dilated. There are bilateral pelvic phleboliths. Abdominal a nd pelvic bowelloops are unremarkable except for a few scattered sigmoid diverticulawith no CT evidence for acute diverticulitis. The appendix is normal in caliber. No free fluid in the pelvis. Lungba ses are clear. IMPRESSION1. Sigmoid diverticulosis with no CT evidence for acutediverticulitis.2. No acute findings in the abdomen or in the pelvis to account forpatient's symptoms. Followup as clinic ally indicated. Reported By: ORIANA BERNARD M.D. :07 ABDOMEN WITH CONTRAST Radiology Report See Note (Normal) Comments: Exam Number: [id number] CT OF ABDOMEN AND PELVIS WITH INTRAVENOUS AND ORAL CONTRAST REASON FOR EXAMINATIONAbdominal pain worse in the left lower quadrant. Contrast enhanced MDCT was performed with intrav enous administrationof 100 cc of Isovue 370. Axial reconstructions were obtained from thehepatic dome to symphysis pubis. Oral contrast was also administered.The study is compared to prior dated Augus 2002. Liver, spleen, gallbladder, pancreas and adrenal glands demonstratenormal size and attenuation without focal abnormality. Kidneys aresymmetric in size and imaging cortical nephrographic pha se. Excretionnot assessed. There is no free fluid in the upper abdomen. CT PELVISBladder is partially distended. Pelvic ureters are not dilated. There are bilateral pelvic phleboliths. Abdominal a nd pelvic bowelloops are unremarkable except for a few scattered sigmoid diverticulawith no CT evidence for acute diverticulitis. The appendix is normal in caliber. No free fluid in the pelvis. Lungba ses are clear. IMPRESSION1. Sigmoid diverticulosis with no CT evidence for acutediverticulitis.2. No acute findings in the abdomen or in the pelvis to account forpatient's symptoms. Followup as clinic ally indicated. Reported By: ORIANA BERNARD M.D. :39 PT/INR, Office ([id number]) INR 2.7 (Normal) :29 PT/INR, Office (77972) INR 3.1 (Normal) :37 PT/INR, Office (37310) INR 3.1 (Normal) Comments: AW :08 PT (Prothrobim Time) (84084) Comments: INR; PATIENT NOT FASTINGClinical Information: ADD DRAW FEE 612590 ADD J 64191 PERFORMED BY: [facility] [place]villeTyeeie4226 [facility] [id number] Prothrombin Time 15.4 {sec} (Abnormal) Range: 8.7-11.5 INR 1.6 (Abnormal) Range: 0.8-1.2 Comments: Reference interval is for non-anticoagulated patients. . Suggested INR therapeutic range for Vitamin K antag onist therapy: Standard Dose (moderate intensity therapeutic range): 2.0 - 3.0 Higher intensity therapeutic range 2.5 - 3.5 :05 CBC HCT 43.8 % (Normal) Range: 37-47 HGB 14.7 g/dL (Normal) Range: 12.0-16.0 MCH 27.9 pg (Normal) Range: 27.0-32.0 MCHC 33.5 g/dL (Normal) Range: 32-36 MCV 83.3 fL (Normal) Range: 81-99 MPV 6.6 fL (Normal) Range: 6.5-12.0 PLT 356 K/mm3 (Normal) Range: 150-450 RBC 5.26 {M/mm3} (Normal) Range: 4.2-5.4 RDW 14.5 % (Normal) Range: 11.6-14.6 WBC 6.5 K/mm3 (Normal) Range: 4.4-11.0 :05 PRO TIME INR 1.5 (Normal) PROTIME 17.0 s (Abnormal) Range: 10.6-13.2 :53 CORONALS,SAG,MULTI,OBL,3-D REC Radiology Report See Note (Normal) Comments: Exam Number: [id number] CT SCAN OF CHEST HISTORYShort of breath. Possible pulmonary embolism. Helical scans were displayed at 1.25-mm intervals from the lungbases to the apices with the in travenous ad ministration of l00 mlof Isovue 370. There is a small defect in the right lower lobar artery. This thrombus straddles the bifurcation of the lobar artery and sectionsare seen in segmental and subsegm ental arteries and smaller defectsare seen and some segmental and subsegmental defects. No additionalthrombi are identified. The thoracic aorta is normal in caliber and there is no evidence of a thora cic dissection. There is no hilar,mediastinal, or axillary adenopathy identified. No pleural effusionis seen. There is no infiltrate, area of consolidation, orparenchymal nodule identified. Report was called to Dr. Quiñonez. IMPRESSIONThere is a pulmonary embolism in the right lower lobe of lobarartery with a few smaller defects seen in segmental and subsegmentalarteries of the right lower lobe. Reported By: VALERIA ANDREW M.D. 06-Gur-56266:52 CHEST WITH CONTRAST Radiology Report See Note (Normal) Comments: Exam Number: [id number] CT SCAN OF CHEST HISTORYShort of breath. Possible pulmonary embolism. Helical scans were displayed at 1.25-mm intervals from the lungbases to the apices with the in travenous ad ministration of l00 mlof Isovue 370. There is a small defect in the right lower lobar artery. This thrombus straddles the bifurcation of the lobar artery and sectionsare seen in segmental and subsegm ental arteries and smaller defectsare seen and some segmental and subsegmental defects. No additionalthrombi are identified. The thoracic aorta is normal in caliber and there is no evidence of a thora cic dissection. There is no hilar,mediastinal, or axillary adenopathy identified. No pleural effusionis seen. There is no infiltrate, area of consolidation, orparenchymal nodule identified. Report was called to Dr. Quiñonez. IMPRESSIONThere is a pulmonary embolism in the right lower lobe of lobarartery with a few smaller defects seen in segmental and subsegmentalarteries of the right lower lobe. Reported By: VALERIA ANDREW M.D. 30-Yrh-67048:5 C-REACTIVE PROT 8.34 mg/L (Abnormal) Comments: STAT RESULTS FAXED TO DR LIZ 02/26/08 6458 [address]VAR[address]. 9 Range: 0.0-6.0 Comments: Test performed using the Dimension C-Reactive ProteinExtended Range assay method. This assay meets the AHA/CDC 2003 recommendations fordetermining patients at high risk for cardiovasculardisease. Reference: High risk CRP >3.0 mg/L :5 D-DIMER QUANT 1693 ng/mL Comments: STAT CRITICAL VALUE REPEATED AND VERIFIED. CALLED TO STEPHEN 1101 RISSA GLASER.RESULTS READ BACK BY ALLYSSA ROBERSON . 9 (Abnormal) Comments: D-Dimer ELEVATED: Additional studies may be indicated to conclude diagnosis. :42 PRO TIME INR 1.0 (Normal) PROTIME 11.9 s (Normal) Range: 10.6-13.2 :29 Rapid Flu (45755 x 2) INFLUENZA IMMUNOASSY DIRECT OPTICAL OBSERV negative (Normal) :38 Influenza A+B Ag, EIA Comments: Clinical Information: SRC:NL PERFORMED BY: [facility] [id number] Influenza A Ag, EIA Negative (Normal) Influenza B Ag, EIA Negative (Normal) :35 Basic Metabolic Panel (8) Comments: Clinical Information: ADD [id number],[id number] PERFORMED BY: [employer] [facility] [id number] BUN 24 mg/dL (Normal) Range: 5-26 BUN/Creatinine 27 (Normal) Range: 8-27 Ratio Calcium, Serum 9.9 mg/dL (Normal) Range: 8.5-10.6 Carbon Dioxide, 28 mmol/L (Normal) Range: 20-32 Total Chloride, Serum 102 mmol/L (Normal) Range: 96-109 Creatinine, Serum 0.9 mg/dL (Normal) Range: 0.5-1.5 Glucose, Serum 87 mg/dL (Normal) Range: 65-99 Potassium, Serum 4.3 mmol/L (Normal) Range: 3.5-5.5 Sodium, Serum 139 mmol/L (Normal) Range: 135-148 TSH 3.031 {uIU/mL} Comments: PERFORMED BY: [employer] [facility] [id number] :35 (Normal) Range: 0.350-5.500 :39 CBCD,SMEAR DIFF ATYPICAL LYMPH 1+ % (Normal) BAND 4 % (Normal) Range: 0-5 CELLS COUNTED 100 (Normal) EOS 3 % (Normal) Range: 0-5 HCT 44.9 % (Normal) Range: 37-47 HGB 15.2 g/dL (Normal) Range: 12.0-16.0 LYMPH 56 % (Abnormal) Range: 19-41 MCH 29.6 pg (Normal) Range: 27.0-32.0 MCHC 33.9 g/dL (Normal) Range: 32-36 MCV 87.4 fL (Normal) Range: 81-99 MONOCYTE 11 % (Abnormal) Range: 0-10 PATH REV SeeNote (Normal) Comments: Result: Reviewed Relative lymphocytosis with reactive change, cannot rule outlow grade lymphoproliferative disorder.Clinical correlation necessary. Olvin Barbosa D.O. 10/16/06 PLT 277 K/mm3 (Normal) Range: 150-450 PLT EST SeeNote (Normal) Comments: Result: ADEQUATE RDW 14.1 % (Normal) Range: 11.6-14.6 RED CELL MORPH SeeNote {NORMAL} (Normal) Comments: Result: NORM C&C SEGS 26 % (Abnormal) Range: 47-70 RBC 5.14 {M/mm3} (Normal) Range: 4.2-5.4 WBC 5.4 K/mm3 (Normal) Range: 4.4-11.0 :39 COMP METABOLIC A/G 1.0 {RATIO} (Normal) Range: 0.9-2.4 ALB 3.7 g/dL (Normal) Range: 3.4-5.0 ALK P 65 U/L (Normal) Range: 50-136 ALT 54 [iU]/L (Normal) Range: 30-65 AST 25 U/L (Normal) Range: 15-37 BUN 17 mg/dL (Normal) Range: 7-18 BUN/CRE 18.9 {RATIO} (Normal) Range: 10-20 CA 9.2 mg/dL (Normal) Range: 8.5-10.1 CL 106 mmol/L (Normal) Range: 98-107 CO2 27.9 mmol/L (Normal) Range: 22.0-29.0 CREAT,SERUM 0.9 mg/dL (Normal) Range: 0.6-1.0 GAP 7 (Normal) Range: 5-15 GLOB 3.6 g/dL (Abnormal) Range: 2.3-3.5 GLU 100 mg/dL (Normal) Range: 70-110 K 4.0 mmol/L (Normal) Range: 3.5-5.1 NA 141 mmol/L (Normal) Range: 136-145 T BILI 0.58 mg/dL (Normal) Range: 0.00-1.00 T PROT 7.3 g/dL (Normal) Range: 6.4-8.2 :39 LIPID HDL 41 mg/dL (Normal) Comments: Reference Range HDL <40 mg/dL Low HDL Cholesterol HDL >or= 60 mg/dL High HDL Cholesterol LDL 126 mg/dL (Normal) Range: 0-130 TRIG 117 mg/dL (Normal) Comments: Serum Triglycerides Reference Interval Normal <150 mg/dL Borderline high 150 - 199 mg/dL High 200 - 499 mg/dL Very High > or = 500 mg/dL VLDL 23 mg/dL (Normal) Range: 5-40 CHOL 190 mg/dL (Normal) Comments: <200 mg/dL Desirable 200-240 mg/dL Borderline >240 mg/dL High Risk :39 TSH 1.98 {uIU/mL} (Normal) Range: 0.34-4.82 Plan of Care Name Dates Details Instructions Nonsmoker : Follow up if no improvement or if symptoms worsen Indication: Nonsmoker Nonsmoker : Eprescribed prescriptions (G8553) Indication: Nonsmoker Grieving : Eprescribed prescriptions (G8553) Indication: Grieving Anxiety : Follow up in 2 weeks Indication: Anxiety Nonsmoker : Eprescribed prescriptions (G8553) Indication: Nonsmoker Nonsmoker : Follow up if no improvement or if symptoms worsen Indication: Nonsmoker Urinary incontinence : Eprescribed prescriptions (G8553) Indication: Urinary incontinence Headache : Reviewed Diagnostic Tests Indication: Headache Headache : Reviewed Lab Indication: Headache BMI 37.0-37.9, adult : Follow up in 3 months Indication: BMI 37.0-37.9, adult Osteopenia : Reviewed Diagnostic Tests Indication: Osteopenia Osteopenia : Reviewed Lab Indication: Osteopenia Elevated blood pressure reading : Eprescribed prescriptions (G8553) Indication: Elevated blood pressure reading Headache : Follow up on Saturday with Serena 11/16/16. Indication: Headache Headache : High Blood Pressure (Essential Hypertension) *: high blood pressure Indication: Headache Headache : Eprescribed prescriptions (G8553) Indication: Headache Encounter for annual general medical examination with abnormal findings in adult : fall reduction handout Indication: Encounter for annual general medical examination with abnormal findings in adult Encounter for annual general medical examination with abnormal findings in adult : elderly packet given Indication: Encounter for annual general medical examination with abnormal findings in adult Encounter for annual general medical examination with abnormal findings in adult : advance planning information Indication: Encounter for annual general medical examination with abnormal findings in adult Encounter for annual general medical examination with abnormal findings in adult : *Weight Loss Discussion Indication: Encounter for annual general medical examination with abnormal findings in adult Abnormal TSH : Follow up in 1 year for Mediare exam Indication: Abnormal TSH Encounter for screening for malignant neoplasm of colon (Renamed from Special screening for malignant neoplasms, colon) : *Colon Cancer Screening Indication: Encounter for screening for malignant neoplasm of colon (Renamed from Special screening for malignant neoplasms, colon) Encounter for screening for malignant neoplasm of colon (Renamed from Special screening for malignant neoplasms, colon) : Eprescribed prescriptions (G8553) Indication: Encounter for screening for malignant neoplasm of colon (Renamed from Special screening for malignant neoplasms, colon) Cough : Follow up if no improvement or if symptoms worsen Indication: Cough Cough : Eprescribed prescriptions (G8553) Indication: Cough Sinusitis, chronic : Eprescribed prescriptions (G8553) Indication: Sinusitis, chronic Encounter for screening mammogram for breast cancer (Renamed from Screening mammogram, encounter for) : Follow up in 3 months for Gen Med Indication: Encounter for screening mammogram for breast cancer (Renamed from Screening mammogram, encounter for) Encounter for screening for malignant neoplasm of colon (Renamed from Special screening for malignant neoplasms, colon) : *Colon Cancer Screening Indication: Encounter for screening for malignant neoplasm of colon (Renamed from Special screening for malignant neoplasms, colon) GERD (gastroesophageal reflux disease) : Eprescribed prescriptions (G8553) Indication: GERD (gastroesophageal reflux disease) Nausea : Follow up in 2 weeks Indication: Nausea Nonsmoker : Eprescribed prescriptions (G8553) Indication: Nonsmoker Gastritis : Follow up if no improvement or if symptoms worsen Indication: Gastritis Osteoarthritis : Follow up if no improvement or if symptoms worsen Indication: Osteoarthritis Gastric ulcer : Follow up if no improvement or if symptoms worsen Indication: Gastric ulcer Upper respiratory infection : Follow up if no improvement or if symptoms worsen Indication: Upper respiratory infection Cramp in lower leg : Follow up - Make appt after diagnostic tests Indication: Cramp in lower leg Rash : Follow up if no improvement or if symptoms worsen Indication: Rash Rash : Eprescribed prescriptions (G8553) Indication: Rash Allergic rhinitis due to other allergen : Follow up if no improvement or if symptoms worsen Indication: Allergic rhinitis due to other allergen Acute sinusitis, unspecified : *URI Treatment Indication: Acute sinusitis, unspecified Acute sinusitis, unspecified : *URI Symptoms Indication: Acute sinusitis, unspecified Acute sinusitis, unspecified : *Antibiotic Usage Education - Female Indication: Acute sinusitis, unspecified Toe pain, left : Follow up if no improvement or if symptoms worsen Indication: Toe pain, left Toe pain, left : Discussed with Patient Indication: Toe pain, left Neck pain : Follow up if no improvement or if symptoms worsen Indication: Neck pain Right leg swelling : Follow up if no improvement or if symptoms worsen Indication: Right leg swelling Limb pain : Reviewed Diagnostic Tests Indication: Limb pain Right leg swelling : Reviewed Diagnostic Tests Indication: Right leg swelling Right leg swelling : Follow up in 1 week Indication: Right leg swelling Epigastric Pain : *Abd Pain Red Flags Indication: Epigastric Pain Epigastric Pain : Abdominal Pain: abdominal cramps Indication: Epigastric Pain External otitis of right ear : *Otitis Externa Education Indication: External otitis of right ear Itching : Follow up if no improvement or if symptoms worsen Indication: Itching Neoplasm of uncertain behavior of skin : Shave Biopsy with Epi Indication: Neoplasm of uncertain behavior of skin Epigastric Pain : Follow up if no improvement or if symptoms worsen Indication: Epigastric Pain Bronchitis : Follow up if no improvement or if symptoms worsen Indication: Bronchitis Bronchitis : *URI Treatment Indication: Bronchitis Bronchitis : *URI Symptoms Indication: Bronchitis Bronchitis : *Antibiotic Usage Education - Female Indication: Bronchitis Other specified viral infection, in conditions classified elsewhere and of unspecified site : *URI Symptoms Indication: Other specified viral infection, in conditions classified elsewhere and of unspecified site Other specified viral infection, in conditions classified elsewhere and of unspecified site : *URI Treatment Indication: Other specified viral infection, in conditions classified elsewhere and of unspecified site Fatigue : Follow up in 2 weeks Indication: Fatigue Hypothyroidism : Follow up as needed Indication: Hypothyroidism Hypothyroidism : Follow up if no improvement or if symptoms worsen Indication: Hypothyroidism Hypertension : Follow up in 1 week Indication: Hypertension Hypertension : Diet, Exercise, and Wt loss Indication: Hypertension CONSTIPATION NOS : FOLLOW UP NEEDED Indication: CONSTIPATION NOS Myalgia and myositis : Reviewed Diagnostic Tests Indication: Myalgia and myositis Other chest pain : Reviewed Diagnostic Tests Indication: Other chest pain Knee pain : FOLLOW UP IN 2 WEEKS Indication: Knee pain Knee pain : FOLLOW UP IN 2 WEEKS Indication: Knee pain Acute sinusitis, unspecified : *URI Treatment Indication: Acute sinusitis, unspecified Acute sinusitis, unspecified : *URI Symptoms Indication: Acute sinusitis, unspecified Other specified viral infection, in conditions classified elsewhere and of unspecified site : *URI Symptoms Indication: Other specified viral infection, in conditions classified elsewhere and of unspecified site Other specified viral infection, in conditions classified elsewhere and of unspecified site : *URI Treatment Indication: Other specified viral infection, in conditions classified elsewhere and of unspecified site Hypertension : FOLLOW UP IN 1 WEEK with [facility] Indication: Hypertension Allergic rhinitis due to other allergen : ALLERGY PROOFING Indication: Allergic rhinitis due to other allergen Allergic rhinitis due to other allergen : ALLERGY CONTROL Indication: Allergic rhinitis due to other allergen Allergic rhinitis due to other allergen : *URI Symptoms Indication: Allergic rhinitis due to other allergen 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 : FOLLOW UP IN 3 MONTHS Indication: 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 Neoplasm of uncertain behavior of skin : Punch Biopsy with Epi Indication: Neoplasm of uncertain behavior of skin Neoplasm of uncertain behavior of skin : Shave Biopsy with Epi Indication: Neoplasm of uncertain behavior of skin Hypercholesteremia : FOLLOW UP IN 3 MONTHS Indication: Hypercholesteremia Upper respiratory infection : Antibiotic Usage Education - Female Indication: Upper respiratory infection Cellulitis : I/D Cyst/Abscess Indication: Cellulitis Acute sinusitis, unspecified : *URI Treatment Indication: Acute sinusitis, unspecified Acute sinusitis, unspecified : Antibiotic Usage Education - Female Indication: Acute sinusitis, unspecified Acute sinusitis, unspecified : URI Symptoms Indication: Acute sinusitis, unspecified Influenza due to influenza A virus with upper respiratory signs : FOLLOW UP NEEDED Indication: Influenza due to influenza A virus with upper respiratory signs Bronchitis : *Antibiotic Usage Education - Female Indication: Bronchitis Bronchitis : *URI Treatment Indication: Bronchitis Bronchitis : URI Symptoms Indication: Bronchitis Other specified viral infection, in conditions classified elsewhere and of unspecified site : URI Symptoms Indication: Other specified viral infection, in conditions classified elsewhere and of unspecified site Syncope : FOLLOW UP IN 2 WEEKS Indication: Syncope Planned Observations URINE BECKY CULTURE-IDENTIFICATN ([id number])Indication: Urinary incontinence On: 65-Tgd-57372:31 Request Urinalysis, Office ([id number])Indication: Urinary incontinence On: 70-Mxw-61496:44 Request FECAL OCCULT- Tubes sent home ([id number])Indication: Encounter for screening for malignant neoplasm of colon (Renamed from Special screening for malignant neoplasms, colon) On: 61-Vzj-144100:12 Request TSH ([id number])Indication: Hypothyroidism On: :36 Request T4, FREE (THYROXINE) ([id number])Indication: Hypothyroidism On: :35 Request T3, FREE (TRIDOTHYRONINE) ([id number])Indication: Hypothyroidism On: :35 Request URINE BECKY CULTURE-IVAN COL COUNT ([id number])Indication: UTI symptoms On: 17-Bro-592275:17 Request LIPASE ([id number])Indication: Abdominal pain On: :09 Request AMYLASE ([id number])Indication: Abdominal pain On: 31-Hqn-293884:09 Request CBC, Platelets & Auto Diff ([id number])Indication: Abdominal pain On: 38-Lii-889698:08 Request Metabolic Panel, Basic ([id number])Indication: Abdominal pain On: 26-Nic-224999:08 Request TSH ([id number])Indication: Hypertension On: 1-Pzw-806825:08 Request CBC, Platelets & Auto Diff ([id number])Indication: Hypertension On: 6-Zwz-808115:06 Request Metabolic Panel, Comprehensive (54901)Indication: Hypertension On: 0-Rlk-147197:05 Request D-Dimer ([id number])Indication: Cramp in lower leg On: 9-Das-317649:02 Request MYOGLOBIN ([id number])Indication: Other chest pain On: 5-Ngb-434391:02 Request CPK MB FRACTION ([id number])Indication: Other chest pain On: 9-Hld-504578: Request ASSAY, TROPONIN, QUANTITATIVE (aka Troponin I) ([id number])Indication: Other chest pain On: 1-Obq-318207:01 Request HEPATIC FUNCTION PANEL ([id number])Indication: FUNGUS, NOS On: 20-Ioy-591467:54 Request MICROALBUMIN URINE QUANT ([id number])Indication: Hypertension On: 85-Uly-667128:58 Request CREATININE, URINE ([id number])Indication: Hypertension On: 36-Etb-571890:58 Request Troponin I (16691)Indication: Other chest pain On: 76-Rdx-624905:12 Request CPK MB FRACTION ([id number])Indication: Other chest pain On: 35-Fhd-288728:12 Request CREATINE KINASE TOTAL ([id number])Indication: Other chest pain On: 12-Ftc-584642:12 Request D-Dimer (25285)Indication: Wheezing On: 05-Dec-20099:23 Request Comments: stat TSH ([id number])Indication: Abnormal TSH On: 85-Zht-547158:12 Request TSH ([id number])Indication: Abnormal TSH On: 82-Jiy-808381:33 Request LIPID PANEL ([id number])Indication: Hypercholesteremia On: 15-Iez-29206:46 Request Comments: repeat in Feb 06 fasting LIPOPROTEIN, BLD, BY NMR ([id number])Indication: Hypercholesteremia On: :46 Request Comments: repeat Feb 06 fasting TSH (THYROID STIMULATING HORMONE) ([id number])Indication: Abnormal TSH On: 00-Iwp-088292:51 Request CBC with manual diff ([id number])Indication: Screening for deficiency anemia On: 03-Sxo-997227:12 Request Metabolic Panel, Comprehensive ([id number])Indication: Screening for hyperlipidemia On: 50-Yzj-655233:11 Request Lipid Panel ([id number])Indication: Screening for hyperlipidemia On: 46-Aso-840080:11 Request TSH ([id number])Indication: Hypothyroidism On: 76-Rnl-587010:10 Request PT/INR, Office ([id number])Indication: senior care (current) use of anticoagulants On: 89-Toi-333696:38 Request D-Dimer ([id number])Indication: Wheezing On: :57 Request Comments: stat C-Reactive Protein ([id number])Indication: Wheezing On: 90-Pvg-01806:53 Request Comments: stat PT/INR, Office ([id number])Indication: superficial thrombophlebitis On: 47-Bkc-934585:08 Request PT (Prothrobim Time) ([id number])Indication: superficial thrombophlebitis On: 06-Yar-66803:09 Request TSH ([id number])Indication: Hypothyroidism On: 06-Nov-20078:14 Request Lipid Panel ([id number])Indication: Hypertension On: :14 Request HEPATIC FUNCTION PANEL ([id number])Indication: Hypertension On: 06-Nov-20078:14 Request INFLUENZA VIRUS ANTIBDY ([id number])Indication: Influenza due to influenza A virus with upper respiratory signs On: :34 Request TSH ([id number])Indication: Hypothyroidism On: 0-Dgu-583999:41 Request LIPID PANEL ([id number])Indication: Hypertension On: 9-Bcc-159915:41 Request METABOLIC PANEL, COMPREHENSIVE ([id number])Indication: Hypertension On: :41 Request Comments: all labs 3-07 not rountine CBC WITH MANUAL DIFF ([id number])Indication: Hypertension On: 6-Ogx-217902:41 Request TSH ([id number])Indication: Syncope On: 98-Dqj-310116:26 Request METABOLIC PANEL, COMPREHENSIVE ([id number])Indication: Syncope On: 13-Jdl-725103:26 Request CBC (AUTO) ([id number])Indication: Syncope On: 42-Fbf-561011:26 Request Planned Procedures Aerosol Treatment ([id number])By: On: 10-Jan-2018 Intent Serena Quiñonez CNP, CNP, Mary E SCREENING DIGITAL TOMOSYNTHESIS On: 02-Nov-2016 Intent OF BREAST ([id number])By: Serena Quiñonez CNP, CNP, Mary E DEXA SCAN AXIAL SKELETON On: 02-Nov-2016 Intent ([id number])By: Serena Quiñonez CNP, CNP, Mary E Radiology - ChestBy: Olamide MARTINEZ, On: 17-Aug-2016 Intent Serena Leblanc CNP Comments: Doretha Quiñonez Solu -Medrol Injection, 125 mg On: 17-Aug-2016 Intent ([id number])By: Serena Quiñonez CNP, CNP, Mary E Solu -Medrol Injection, 125 mg On: 17-Aug-2016 Intent ([id number])By: Serena Quiñonez CNP Comments: [id number]/[id number]:125mgRoute: Site:[facility] By:MOISEVIS signed eSrena Quiñonez CNP Aerosol Treatment ([id number])By: On: 17-Aug-2016 Intent Brandishanamichelle MARTINEZ Serena Mcmanus Brandishanamichelle MARTINEZ Serena Mcmanus MAMMOGRAM, SCREENING, BOTH BREAST On: 13-Jul-2016 Intent ([id number])By: Olamide MARTINEZ BrenYonathan Quiñonez CNP Bren DEXA SCAN AXIAL SKELETON On: 13-Jul-2016 Intent ([id number])By: Olamide MARTINEZ Bren Cishanamichelle MARTINEZ Bren CT - Abdomen & Pelvis Stone On: 29-Jun-2015 Intent ProtocolBy: Jonathanmichelle MARTINEZ Serena Quiñonez MICHELLE Serena Mcmanus CT - Abdomen & PelvisBy: Nancy On: 16-Feb-[address] - AbdomenBy: Olaimde MARTINEZ Bren On: 15-Feb-2015 Intent Olamide MARTINEZ Bren CT - Chest (IV Contrast On: 02-Nov-2014 Intent Needed)By: Olamide MARTINEZ Bren Comments: STAT- PE Protocol Olamide MARTINEZ Bren Holter Monitor 24 hrsBy: Olamide On: 02-Nov-2014 Intent MICHELLE Bren Cishanamichelle MARTINEZ Bren Echo CompleteBy: Olamide MARTINEZ Serena On: 02-Nov-2014 Intent E Olamide MARTINEZ Bren EKG ([id number])By: Olamide MARTINEZ Bren On: 02-Nov-2014 Intent Olamide MARTINEZ Bren Comments: sinus rhythm similar to 09-28-2011 Radiology - Toe(s) - LeftBy: On: 15-Mar-2014 Intent Olamide MARTINEZ BrenYonathan Quiñonez CNP Bren CT - NeckBy: Olamide MARTINEZ Serena Mcmanus On: 15-Feb-2014 Intent Olamide MARTINEZ Bren Comments: cervical spine CT - NeckBy: Micki Cruz MD On: 15-Feb-2014 Intent Comments: STAT STAT STAT STATCALL WET READATTN TO ODONTOID Radiology - Cervical SpineBy: On: 11-Feb-2014 Intent Olamide MARTINEZ BrenYonathan Quiñonez CNP Serena Comments: send resuts to Kyle Quiñonez and Dr. Coughlin (pain specialist) E Venous Doppler - RightBy: Olamide On: 09-Oct-2013 Intent MICHELLE Serena Leblanc CNP Radiology - Knee - RightBy: Ciesa On: 09-Oct-2013 Intent Serena MARTINEZ CNP, Mary E Nuclear Medicine - HIDA w/CPKBy: On: 28-Aug-2013 Intent Catalina Daly DO Ultrasound - GallbladderBy: On: 26-Aug-2013 Intent Catalina Daly DO Eprescribed prescriptions On: 26-Aug-2013 Intent ([id number])By: Catalina Daly DO Eprescribed prescriptions On: 06-Aug-2013 Intent ([id number])By: Nancy GIPSON, Micki Wright Aerosol Treatment ([id number])By: On: 29-Sep-2012 Intent Serena Quiñonez CNP, CNP, Mary E Toradol Injection, 30 mg On: 30-Apr-2012 Intent ([id number])By: Serena Quiñonez CNP, CNP, Mary E ELECTROCARDIOGRAM, COMPLETE (ECG) On: 28-Sep-2011 Intent ([id number])By: Serena Quiñonez CNP Comments: sinus rhythm Serena Quiñonez CNP Bio Z ([id number])By: Serena Quiñonez CNP On: 28-Sep-2011 Intent E Serena Quiñonez CNP Comments: with in normal PHYSICAL THERAPY EVALUATION On: 02-Jan-2011 Intent ([id number])By: Serena Quiñonez CNP, CNP, Mary E MRI - Knee(s) - LeftBy: Ciesa On: 02-Jan-2011 Intent Serena MARTINEZ CNP, Mary E Nuclear Stress Test/Stress On: 21-Aug-2010 Intent SPECT/AdenosineBy: Serena Quiñonez CNP, CNP, Mary E EKG ([id number])By: Serena Quiñonez CNP On: 21-Aug-2010 Intent Serena Quiñonez CNP PHYSICAL THERAPY EVALUATION On: 08-Aug-2010 Intent ([id number])By: Serena Quiñonez CNP, CNP, Mary E Radiology - Knee - LeftBy: Ciesa On: 08-Aug-2010 Intent Serena MARTINEZ CNP, Mary E Radiology - Knee - Left - Weight On: 08-Aug-2010 Intent BearingBy: Serena Quiñonez CNP, CNP, Mary E CT - Chest (IV Contrast On: 06-Dec-2009 Intent Needed)By: Serena Quiñonez CNP Comments: stat Olamide MARTINEZ Bren Doppler Ultrasound OtherBy: Olamide On: 05-Dec-2009 Intent Serena MARTINEZ Olamide MARTINEZ Serena Mcmanus Comments: Rt knee and lower extremity with history of PE Please do today Aerosol Treatment ([id number])By: On: 05-Dec-2009 Intent Olamide MARTINEZ BrenYonathan Quiñonez CNP Bren Pulse Oximetry ([id number])By: Olamide On: 05-Dec-2009 Intent MICHELLESerena Olamide MARTINEZ Bren CT - Brain/HeadBy: Olamide MARTINEZ, On: 25-Aug-2009 Intent Serena Mcmanus Olamide MARTINEZ Bren DESTRUCT B9 LESION, 1-14 On: 20-Mar-2009 Intent ([id number])By: Micki Cruz MD Doppler Ultrasound OtherBy: Olamide On: 18-Oct-2008 Intent MICHELLESerena Olamide MARTINEZ Bren CT - ChestBy: Micki Cruz MD On: 22-Mar-2008 Intent Comments: copyy of both ct to Dr. yeyo jules in [place] and Dr. meehan CT - Abdomen & PelvisBy: Nancy On: 22-Mar-2008 Intent Micki GIPSON Pulse Oximetry ([id number])By: On: 22-Mar-2008 Intent RAMA Webster Pulse Oximetry ([id number])By: On: 16-Mar-2008 Intent RAMA Webster Echo CompleteBy: Micki Cruz MD On: 11-Mar-2008 Intent Kyle Vancoymcin 500mg/premixedBy: On: 11-Mar-2008 Intent Micki Cruz MD Pulse Oximetry ([id number])By: On: 02-Mar-2008 Intent RAMA Webster Pulse Oximetry ([id number])By: Olamide On: 26-Feb-2008 Intent MICHELLESerena Yonathan Quiñonez CNP Bren CT - Chest (IV Contrast On: 26-Feb-2008 Intent Needed)By: Serena Quiñonez CNP Comments: PE protocolstatSTAT CT shows PE to be admitted Serena Quiñonez CNP Solu -Medrol Injection, 125 mg On: 26-Feb-2008 Intent ([id number])By: Serena Quiñonez CNP Comments: hilda signedAmt: 2mlLot: [id number]: 09/2010Route: IMSite: right hipTolerated: wellGiven By: RADAMES Ta CNP, Mary E Inhaler Demonstration ([id number])By: On: 26-Feb-2008 Intent Serena Quiñonez CNP, CNP, Mary E Aerosol Treatment ([id number])By: On: 26-Feb-2008 Intent Serena Quiñonez CNP, CNP, Mary Comments: done E Venous Doppler - RightBy: Nancy On: 27-Nov-2007 Intent Micki GIPSON Comments: leg 2 weeks DXA, BONE DENSITY, AXIAL SKELETON On: 06-Nov-2007 Intent ([id number])By: Micki Cruz MD Comments: estrogen deficient MAMMOGRAM, SCREENING, BOTH On: 06-Nov-2007 Intent BREASTS ([id number])By: Micki Cruz MD Pulse Oximetry ([id number])By: On: 06-Nov-2007 Intent RAMA Webster Pulse Oximetry ([id number])By: Alex On: 24-Sep-2007 Intent Dana Comments: 98% Aerosol Treatment ([id number])By: On: 05-Aug-2007 Intent Serena Quiñonez CNP, CNP, Mary E Spirometry ([id number])By: Nancy On: 27-May-[address] - Brain/HeadBy: Nancy GIPSON, On: 22-Mar-2006 Intent Micki Wright Planned Medications INJECTION, KETOROLAC TROMETHAMINE, PER 15 MG Ordered: 30-Apr-2012 Pending Serena Quiñonez CNP, CNP, Mary E INJECTION, METHYLPREDNISOLONE SODIUM SUCCINATE, UP TO 125 MG Ordered: 17-Aug-2016 Pending Serena Quiñonez CNP, CNP, Mary E INJECTION, METHYLPREDNISOLONE SODIUM SUCCINATE, UP TO 125 MG Ordered: 17-Aug-2016 Pending Serena Quiñonez CNP, CNP, Mary E Instructions Name Dates Details Nonsmoker : How to access health information online Indication: Nonsmoker Nonsmoker : How to access health information online - Detail Indication: Nonsmoker Nonsmoker : Patient Instructions Indication: Nonsmoker Grieving : How to access health information online Indication: Grieving Grieving : How to access health information online - Detail Indication: Grieving Grieving : Patient Instructions Indication: Grieving Nonsmoker : How to access health information online Indication: Nonsmoker Nonsmoker : How to access health information online - Detail Indication: Nonsmoker Anxiety : Patient Instructions Indication: Anxiety Urinary incontinence : How to access health information online Indication: Urinary incontinence Urinary incontinence : How to access health information online - Detail Indication: Urinary incontinence Urinary incontinence : Patient Instructions Indication: Urinary incontinence Elevated blood pressure reading : How to access health information online Indication: Elevated blood pressure reading Elevated blood pressure reading : How to access health information online - Detail Indication: Elevated blood pressure reading BMI 37.0-37.9, adult : Patient Instructions Indication: BMI 37.0-37.9, adult Headache : How to access health information online Indication: Headache Headache : How to access health information online - Detail Indication: Headache Headache : Patient Instructions Indication: Headache Abnormal TSH : DISCONTINUED - T4, FREE (THYROXINE) ([id number]) Indication: Abnormal TSH Abnormal TSH : DISCONTINUED - T3, FREE (TRIDOTHYRONINE) ([id number]) Indication: Abnormal TSH Abnormal TSH : DISCONTINUED - TSH (THYROID STIMULATING HORMONE) ([id number]) Indication: Abnormal TSH Encounter for screening for malignant neoplasm of colon (Renamed from Special screening for malignant neoplasms, colon) : How to access health information online Indication: Encounter for screening for malignant neoplasm of colon (Renamed from Special screening for malignant neoplasms, colon) Encounter for screening for malignant neoplasm of colon (Renamed from Special screening for malignant neoplasms, colon) : How to access health information online - Detail Indication: Encounter for screening for malignant neoplasm of colon (Renamed from Special screening for malignant neoplasms, colon) Encounter for screening for malignant neoplasm of colon (Renamed from Special screening for malignant neoplasms, colon) : Patient Instructions Indication: Encounter for screening for malignant neoplasm of colon (Renamed from Special screening for malignant neoplasms, colon) Cough : How to access health information online Indication: Cough Cough : How to access health information online - Detail Indication: Cough Cough : Patient Instructions Indication: Cough Sinusitis, chronic : How to access health information online Indication: Sinusitis, chronic Sinusitis, chronic : How to access health information online - Detail Indication: Sinusitis, chronic Sinusitis, chronic : Patient Instructions Indication: Sinusitis, chronic FUNGUS, NOS : DISCONTINUED - HEPATIC FUNCTION PANEL ([id number]) Indication: FUNGUS, NOS Hypertension : DISCONTINUED - TSH ([id number]) Indication: Hypertension GERD (gastroesophageal reflux disease) : How to access health information online Indication: GERD (gastroesophageal reflux disease) GERD (gastroesophageal reflux disease) : How to access health information online - Detail Indication: GERD (gastroesophageal reflux disease) GERD (gastroesophageal reflux disease) : Patient Instructions Indication: GERD (gastroesophageal reflux disease) Nonsmoker : How to access health information online Indication: Nonsmoker Nonsmoker : How to access health information online - Detail Indication: Nonsmoker Nonsmoker : Patient Instructions Indication: Nonsmoker Osteoarthritis : Patient Instructions Indication: Osteoarthritis Rash : How to access health information online Indication: Rash Rash : How to access health information online - Detail Indication: Rash Rash : Patient Instructions Indication: Rash Allergic rhinitis due to other allergen : Patient Instructions Indication: Allergic rhinitis due to other allergen Toe pain, left : Patient Instructions Indication: Toe pain, left Right leg swelling : Patient Instructions Indication: Right leg swelling Epigastric Pain : Patient Instructions Indication: Epigastric Pain Encounters Annotation/Addendum On: 08-Apr-2018 6:13 Encounter Diagnosis: Unspecified Diagnosis End: 08-Apr-2018 6:20 [facility] Office Visit On: 24-Mar-2018 8:51 Encounter Reason: Skin Lesions - Onset was 2 week(s) ago. Note for Skin lesions: Left side of face raised red and white pus filled domesEncounter Diagnosis: BMI 37.0-37.9, adult, Nonsmoker, Impetigo, Grieving, Eyes sensitive to light End: 24-Mar-2018 9:41 [facility] Office Visit On: 10-Jan-2018 7:07 Encounter Reason: Anxiety - Symptoms include anxiety and fatigue. Onset was 6 month(s) ago. The symptoms occur constantly. Associated symptoms include chest pain., [ADDITIONAL REASON] Grief - Husbands recent. Encounter Diagnosis: Grieving, End: 10-Jan-2018 9:06 Nonsmoker, BMI 37.0-37.9, adult, Anxiety, Wheezing (786.07), History of blood clots, Right leg swelling [facility] Office Visit On: 30-Dec-2017 10:35 Encounter Reason: Anxiety - Symptoms include anxiety and fatigue. Onset was 6 month(s) ago. Associated symptoms include chest pain. 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 He is not doing well and pt needs something to calm down. Feeling anxious, unable to sleep or get a good nights rest.Encounter Diagnosis: BMI 37.0-37.9, adult, Nonsmoker, Anxiety, Caregiver stress, Grieving, Depressive disorder [facility] Office Visit On: 16-Oct-2017 7:42 Encounter Reason: Urinary problems - The onset of the urinary problems has been gradual and they have been occurring in a persistent pattern for years. The course has been increasing. The urinary problems are described a End: 16-Oct-2017 9:50 s severe. The urinary problem is characterized as incontinence of urine. Note for Urinary problems: Has had hysterectomy (partial) has ovary.Encounter Diagnosis: Urinary incontinence (788.30), BMI 37.0-37.9, adult, Nonsmoker, Female cystocele, History of pulmonary embolus (PE) [facility] Office Visit On: 16-Nov-2016 10:46 Encounter Reason: Follow up tests - Diagnostic tests include other (labs, mammogram, bone density).Encounter Diagnosis: Elevated blood pressure reading, Headache, Nonsmoker, BMI 37.0-37.9, adult, Osteopenia End: 16-Nov-2016 11:33 [facility] Office Visit On: 12-Nov-2016 9:44 Encounter Reason: Headache - Symptoms include different headache features and photophobia. The headache is located on alternating sides. There is no radiation. The patient describes the pain as sharp. The symptoms occur End: 12-Nov-2016 11:22 intermittently. The headaches occur daily and last for 5 minutes. Previous presentation included different headache features and photophobia.Encounter Diagnosis: BMI 37.0-37.9, adult, Nonsmoker, Headache, Blurry vision, bilateral, Elevated blood pressure reading [facility] Annotation/Addendum On: 09-Nov-2016 14:00 [facility] End: 09-Nov-2016 14:12 Office Visit On: 02-Nov-2016 7:11 Encounter Reason: Annual Medicare Exam - The patient had reviewed and updated the family history, medication/s, past medical history and social history. Yes the patient did have a mini mental status exam done today. The End: 02-Nov-2016 8:11 activities of daily living the patient needs help with are none. The patient has driven in past 6 months, put area rugs through house and put handrails in bathroom, but the patient has not had fecal inc ontinence, had urinary incontinence, missed or ran out of medications to soon, fallen in the past 6 months, gotten lost or has a medalert necklace or bracelet. The patient has completed the following pr eventative measures: colonoscopy (Dr Laguna 2014). The patient does have durable power of county attorney and living will. The patient has noticed nothing from the geriatic depression scale.Encounter Diagnosis: BMI 37.0-37.9, adult, Nonsmoker, Encounter for screening for malignant neoplasm of colon (Renamed from Special screening for malignant neoplasms, colon), Postmenopausal (Renamed from Postmenopausal status), Encounter for screening mammogram for breast cancer (Renamed from Screening mammogram, encounter for), Abnormal TSH, Encounter for annual general medical examination with abnormal findings in adult [facility] Annotation/Addendum On: 20-Aug-2016 8:39 Encounter Diagnosis: Unspecified Diagnosis End: 20-Aug-2016 8:40 [facility] Office Visit On: 17-Aug-2016 13:03 Encounter Reason: Cough - The last clinic visit was 2 day(s) ago. Management changes made at the last visit include adding medication (atb). Symptoms include cough, dyspnea, wheezing, runny nose and stuffy nose. The coug End: 17-Aug-2016 13:51 h is described as productive (yellow). Cough onset was 7 day(s) ago. The cough occurs constantly. Symptoms are described as unchanged. Associated symptoms include postnasal drainage and headache. Curren t treatment includes non-opioid cough medications. By report there is good compliance with treatment and poor symptom control. Note for Cough: headache gone but very nauseated very SOB Encounter Diagnosis: Nonsmoker, BMI 37.0-37.9, adult, Cough, Wheeze [facility] Office Visit On: 15-Aug-2016 11:44 Encounter Reason: Cough - Symptoms include cough, dyspnea, runny nose and stuffy nose. The cough is described as productive (clear). Cough onset was 5 day(s) ago. The cough occurs constantly. Symptoms are described as un End: 15-Aug-2016 12:16 changed. Associated symptoms include postnasal drainage and headache. Current treatment includes non-opioid cough medications. By report there is good compliance with treatment and poor symptom control.Encounter Diagnosis: Cough, BMI 37.0-37.9, adult , Nonsmoker, Sinusitis, chronic [facility] Office Visit On: 13-Jul-2016 13:43 Encounter Reason: Follow up acute care visit - The patient improving. Patient has been compliant with instructions. The medical issues the patient is following up for include other (stomach issues ).Encounter Diagnosis: BMI 38.0-38.9,adult, Nonsmoker End: 13-Jul-2016 14:16 , Epigastric abdominal tenderness, GERD (gastroesophageal reflux disease), Abnormal TSH, Hypertension, FUNGUS, NOS, Postmenopausal (Renamed from Postmenopausal status), Encounter for screening for malignant neoplasm of colon (Renamed from Special screening for malignant neoplasms, colon), Encounter for screening mammogram for breast cancer (Renamed from Screening mammogram, encounter for) [facility] Office Visit On: 27-Jun-2016 12:49 Encounter Diagnosis: Hypothyroidism End: 27-Jun-2016 13:37 [facility] Office Visit On: 26-Jun-2016 12:54 Encounter Reason: Abdominal pain - The pain has been occurring for 3 days. The course has been increasing. The pain is described as crampy. The pain is described as being located in the lower abdomen. Note for Pain: st End: 26-Jun-2016 14:04 arted with heartburn had ulcer and saw dona with pain Encounter Diagnosis: Nonsmoker, BMI 40.0-44.9, adult, Epigastric abdominal tenderness, Nausea [facility] Office Visit On: 14-Oct-2015 10:06 Encounter Reason: Knee Pain - This condition occurred following a specific injury (Left Knee replacement). The injury involved the left knee and right knee. Symptoms include knee pain and swelling. Symptoms are located i End: 14-Oct-2015 11:21 n the left knee and right knee. The pain radiates to the left hip and left thigh. The patient describes symptoms as unchanged. Previous presentation included knee pain and swelling. Note for Knee pain : Saw Dr. Hernandez who put knee pain med into knee, but still with swelling Now off of arthritismed except tylenol with arthritis Encounter Diagnosis: Knee pain, bilateral, Gastritis [facility] Office Visit On: 12-Jul-2015 9:52 Encounter Reason: Pre-Op Visit - The procedure scheduled is a left TKR on Aug 09. The surgeon for the procedure will be Dr. Sarath Hernandez. Pertinent medical history includes prior anesthesia and thromboembolic problem End: 12-Jul-2015 14:41 s. After surgery the patient plans to recover at home with family. Note for Pre- op visit: For Left Knee replacement Dr. Hernandez in [place] Aug 09, 2015. 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 The symptoms have been occurring for 1 week and have been constant. The urine is described as clear. The symptoms h End: 27-Jun-2015 11:55 ave been associated with low back pain. There is no history of sexual contact with a person having an STD, use of tampons, possible vaginal foreign body, douching, use of contraceptive devices, sexual a ssault, trauma, vulvovaginal exposure to chemical irritants, sexual contact with a person exposed to an STD, recent catheterization, new sexual partner or current catheterization.Encounter Diagnosis: UTI symptoms, Osteoarthritis [facility] Annotation/Addendum On: 22-Mar-2015 16:18 Encounter Diagnosis: Osteoarthritis (715.96) End: 22-Mar-2015 16:19 [facility] Annotation/Addendum On: 11-Mar-2015 11:41 Encounter Diagnosis: Unspecified Diagnosis End: 11-Mar-2015 11:45 [facility] Annotation/Addendum On: 09-Mar-2015 16:29 Encounter Diagnosis: Unspecified Diagnosis End: 09-Mar-2015 16:32 [facility] Office Visit On: 02-Mar-2015 10:28 Encounter Reason: Abdominal pain - The onset of the pain has been variable and has been occurring in an intermittent pattern for 1 month. The course has been increasing. The pain is described as a moderate sharp pain, st End: 02-Mar-2015 11:15 abbing, crampy and dull ache. The pain is described as being located in the entire abdomen. The pain radiates to the left flank and right flank. The symptoms have no aggravating factors. The symptoms ar e relieved by bowel movements and bending forward. The symptoms have been associated with bloating and constipation.Encounter Diagnosis: Gastric ulcer, Osteoarthritis (715.96) [facility] Phone Encounter On: 16-Feb-2015 8:57 Encounter Diagnosis: Abdominal pain End: 16-Feb-2015 9:04 [facility] Office Visit On: 15-Feb-2015 10:20 Encounter Reason: Abdominal pain - The onset of the pain has been variable and has been occurring in an intermittent pattern for 1 month. The course has been increasing. The pain is described as a moderate sharp pain, st End: 15-Feb-2015 11:10 abbing, crampy and dull ache. The pain is described as being located in the entire abdomen. The pain radiates to the left flank and right flank. The symptoms have no aggravating factors. The symptoms ar e relieved by bowel movements and bending forward. The symptoms have been associated with bloating and constipation.Encounter Diagnosis: Flank pain, CONSTIPATION NOS (564.00), Osteoarthritis (715.96), Abdominal pain [facility] Office Visit On: 15-Dec-2014 9:55 Encounter Reason: Sore Throat - The last clinic visit was 1 day(s) ago. Symptoms include sore throat, while symptoms do not include dysphagia, odynophagia, nasal congestion, postnasal drainage, swollen glands, myalgias, End: 15-Dec-2014 10:13 drooling, stridor, fever or chills. The symptoms are symmetrical. There is no radiation. The patient describes the pain as dull. Onset was sudden 1 day(s) ago. The symptoms occur constantly. The episode s last for 1 day. The patient describes this as moderate in severity and unchanged. Symptoms are not exacerbated by swallowing liquids, swallowing solids, a dry environment or a cold environment. Sympto ms are not relieved by antihistamines, decongestants, drinking liquids, salt water gargles, non-prescription throat lozenges, cool mist humidifier, non-opioid analgesics or opioid analgesics. Associated symptoms include headache. The patient is not currently being treated for this problem. Presenting symptoms included sore throat and headache. This problem has not been previously evaluated. This problem has not been previously treated. Encounter Diagnosis: Sore throat, Upper respiratory infection (465.9) [facility] Lab Order On: 02-Nov-2014 14:13 Encounter Diagnosis: Elevated d-dimer End: 02-Nov-2014 14:22 [facility] Office Visit On: 02-Nov-2014 10:18 Encounter Reason: Hypertension - The last clinic visit was 1 day(s) ago. Symptoms include visual disturbance (blurry on right side), while symptoms do not include headache, confusion, dizziness or shortness of breath. Re End: 02-Nov-2014 11:09 cent blood pressure has been mostly > 78 (148). The patient describes this as moderate in severity and worsening. Symptoms are not exacerbated by stress, fatigue, weight gain, excess dietary salt, al cohol use or skipping medications. Symptoms are not relieved by stress management, weight loss, exercise, avoiding alcohol or medication. Associated symptoms do not include chest pain, claudication, deo r syncope, syncope, weakness, paresthesias or edema. The patient is not currently being treated for this problem. By report there is good compliance with treatment. Risk factors do not include obesity, physical inactivity, illicit drug use, alcohol use, smoking, smokeless tobacco use, nonsteroidal anti-inflammatory drugs, oral contraceptives or stimulant medication. Pertinent family history includes h ypertension, while pertinent family history does not include cardiovascular disease, dyslipidemia, diabetes or obesity. The patient was previously evaluated in this clinic. Previous presentation include d an elevated blood pressure during the examination, an elevated blood pressure from an outside reading and visual disturbance.Encounter Diagnosis: Hypertension, CHEST PAIN (786.59), Cramp in lower leg [facility] Office Visit On: 30-Jun-2014 11:10 Encounter Reason: Rash - The last clinic visit was 1 day(s) ago.Encounter Diagnosis: Rash End: 30-Jun-2014 11:47 [facility] Office Visit On: 09-Jun-2014 10:35 Encounter Reason: Follow up acute care visit - The patient does not feel well, has decreased energy level and worsening. Patient has been compliant with instructions. Patient sleeps 7 hours per night. The medical issues End: 09-Jun-2014 11:25 the patient is following up for include All identified problems below and other (ST, cough ).Encounter Diagnosis: Acute sinusitis, unspecified (461.9), Allergic rhinitis due to other allergen (477.8) [facility] Office Visit On: 24-May-2014 9:24 Encounter Diagnosis: Sore throat End: 24-May-2014 9:55 [facility] Office Visit On: 15-Mar-2014 9:28 Encounter Reason: Foot Problem - The injury involved the left foot. The injury resulted from a direct blow (?). Symptoms include foot pain. Onset was sudden 5 day(s) ago. The symptoms occur constantly. The patient descri End: 15-Mar-2014 12:14 bes symptoms as moderate in severity and worsening. Symptoms are exacerbated by weight bearing, walking and direct pressure.Encounter Diagnosis: Toe pain, left [facility] Annotation/Addendum On: 15-Feb-2014 12:06 Encounter Diagnosis: Neck pain End: 15-Feb-2014 12:25 [facility] Phone Encounter On: 15-Feb-2014 10:49 Encounter Diagnosis: Neck pain End: 15-Feb-2014 10:58 [facility] Office Visit On: 11-Feb-2014 7:57 Encounter Reason: Follow up acute care visit - The patient does not feel well and worsening. Patient has been compliant with instructions. Patient sleeps 4 (with sleep aid) hours per night. The medical issues the patient End: 11-Feb-2014 8:27 is following up for include All identified problems below and other (neck pain ).Encounter Diagnosis: Neck pain [facility] Office Visit On: 16-Oct-2013 13:57 Encounter Reason: Follow up acute care visit - The patient feeling better since last seen and improving. Patient has been compliant with instructions. The medical issues the patient is following up for include All identi End: 16-Oct-2013 14:24 fied problems below and other (R Knee pain, edema).Encounter Diagnosis: Right leg swelling, Limb pain (729.5) [facility] Office Visit On: 09-Oct-2013 9:53 Encounter Reason: Knee Pain - Symptoms include knee pain, swelling, difficulty bearing weight and difficulty ambulating. Symptoms are located in the right knee. The pain radiates to the right thigh. Onset was sudden 7 da End: 09-Oct-2013 10:47 y(s) ago. The symptoms occur constantly. The patient describes symptoms as moderate in severity and worsening.Encounter Diagnosis: Knee pain, right, Right leg swelling [facility] Phone Encounter On: 28-Aug-2013 15:57 Encounter Diagnosis: Abdominal Pain,RUQ(789.01) End: 28-Aug-2013 15:58 [facility] Office Visit On: 26-Aug-2013 10:52 Encounter Reason: Abdominal Pain, Female - Symptoms include abdominal pain, while symptoms do not include nausea, vomiting, diarrhea or vaginal bleeding. The pain is located in the epigastric area. The pain radiates to t End: 26-Aug-2013 12:06 he back. The patient describes the pain as sharp. Onset was 1 week(s) ago. The symptoms occur intermittently. Associated symptoms include flatulence, while associated symptoms do not include fever. Current treatment includes antacids. Encounter Diagnosis: Epigastric Pain (789.06), Abdominal Pain,RUQ(789.01) [facility] Office Visit On: 11-Aug-2013 10:08 Encounter Reason: Follow up acute care visit - The patient feels the same. Patient has been compliant with instructions. Current medication use: no side effects, compliant with dosing regimen and not considered effective End: 11-Aug-2013 10:28 by patient. The medical issues the patient is following up for include All identified problems below and other (lesion of auditory canal- R).Encounter Diagnosis: External otitis of right ear [facility] Office Visit On: 06-Aug-2013 10:32 Encounter Diagnosis: Hypertension (401.0), Lesion of external auditory canal End: 06-Aug-2013 10:48 [facility] Office Visit On: 30-Mar-2013 11:35 Encounter Reason: Skin Problems - The onset of the skin problems has been sudden and they have been occurring in a persistent pattern. The course has been increasing. The problem is characterized as infection and a benjamin End: 30-Mar-2013 12:21 e in skin color. There has been associated pain, while there has been no fatigue or fever.Encounter Diagnosis: Skin irritation, Itching (698.9) [facility] Office Visit On: 26-Mar-2013 11:18 Encounter Diagnosis: Lesion-Unknown behavior (238.2) End: 27-Mar-2013 15:40 [facility] Office Visit On: 03-Nov-2012 13:32 Encounter Reason: Abdominal Pain, Female - Symptoms include abdominal pain, while symptoms do not include nausea, vomiting or diarrhea. The pain is located in the epigastric area. The pain radiates to the back. The patie End: 03-Nov-2012 14:44 nt describes the pain as crampy. Onset was sudden 1 month(s) ago. Onset followed taking a new medication (Levaquin). The symptoms occur frequently. The patient describes this as unchanged. Associated sy mptoms do not include fever, hematuria or dark urine. Current treatment includes antacids.Encounter Diagnosis: Epigastric Pain (789.06) [facility] Office Visit On: 01-Oct-2012 11:47 Encounter Reason: Follow up acute care visit - The patient feels the same and has decreased energy level. Patient has been compliant with instructions. Current medication use: no side effects, compliant with dosing regim End: 01-Oct-2012 12:12 en and considered effective by patient. The medical issues the patient is following up for include All identified problems below and other (bronchitis).Encounter Diagnosis: BRONCHITIS, NOT SPECIFIED ACUTE OR CHRONIC (490.) [facility] Office Visit On: 29-Sep-2012 8:52 Encounter Reason: Cough - Symptoms include cough, wheezing, fever (low grade) and sore throat. The cough is described as wheezy and productive (yellow mucus). Cough onset was gradual 5 day(s) ago. Symptoms are described End: 29-Sep-2012 9:26 as worsening. Associated symptoms include postnasal drainage, noisy breathing and headache.Encounter Diagnosis: SYMPTOMS INVOLVING RESPIRATORY SYSTEM AND OTHER CHEST SYMPTOMS; COUGH (786.2), Wheezing (786.07), BRONCHITIS, NOT SPECIFIED ACUTE OR CHRONIC (490.) [facility] Phone Encounter On: 15-Sep-2012 16:02 Encounter Reason: Follow up acute care visit - The patient feels the same. Patient has been compliant with instructions. Current medication use: no side effects, compliant with dosing regimen and considered effective by End: 19-Sep-2012 13:22 patient. Patient sleeps 7 hours per night. The medical issues the patient is following up for include All identified problems below and other (knee pain/ CP )., [ADDITIONAL REASON] Follow up tests - Date: (ct). [facility] Annotation/Addendum On: 20-Jun-2012 11:46 Encounter Diagnosis: Unspecified Diagnosis End: 20-Jun-2012 11:49 [facility] Office Visit On: 20-Jun-2012 11:08 Encounter Reason: Sinusitis/ - The duration of the symptoms are 1 week The course has been worsening. The sinusitis/ has no relieving factors. Associated features include The symptoms have been associated with nasal disc End: 20-Jun-2012 11:46 harge/stuffy nose and sinus pain, while the symptoms have not been associated with ear pain, sore throat, swollen lymph glands or teeth pain. No previous evaluations were reported. Note for Sinusitis/: started yesterday Encounter Diagnosis: Acute sinusitis, unspecified (461.9), Urinary incontinence (788.30), Hypothyroidism (244.9), Hot flashes (627.2), Viral infection, unspecified (079.99) [facility] Office Visit On: 30-Apr-2012 9:42 Encounter Reason: Headache - Symptoms include headache. Onset was sudden. The patient describes symptoms as unchanged. Note for Headache: Feeling tired, had week of intense things. Not bouncing back. No OTC meds. Bottom of skull and over eyes End: 30-Apr-2012 11:06 Encounter Diagnosis: Headache (784.0), Fatigue (780.79) [facility] Office Visit On: 16-Nov-2011 11:16 Encounter Reason: Nail Problems - Symptoms include irritation under the nails (right great toe). Onset was gradual 2 week(s) ago. Symptoms are moderate in severity.Encounter Diagnosis: MYALGIA/MYOSITIS NOS (729.1), DEPRESSIVE DISORDER (311.0), End: 16-Nov-2011 11:58 Incontinence (788.39), Hypothyroidism (244.9), FUNGUS, NOS [facility] Office Visit On: 03-Oct-2011 10:15 Encounter Reason: Follow up Hypertension - The symptoms have been associated with anxiety (trying to keep to minimum), while the symptoms have not been associated with excessive caffeine intake or sleep apnea symptoms. b End: 03-Oct-2011 10:41 lood pressure range : (132/81).Encounter Diagnosis: Hypertension (401.0), Hypothyroidism (244.9) [facility] Office Visit On: 28-Sep-2011 11:37 Encounter Reason: Hypertension - The last clinic visit was 2 week(s) ago. No changes in management were made at the last visit. Symptoms include headache, visual disturbance, dizziness (does have inner ear issues.) and s End: 28-Sep-2011 12:46 hortness of breath. Recent blood pressure has been mostly < 145. The patient describes this as moderate in severity and worsening. Symptoms are exacerbated by stress, fatigue and weight gain. Symptom s are relieved by stress management. Associated symptoms include chest pain (had pain but thought was from exercise. Only happened once about 2 weeks ago,). Current treatment includes stress management.Encounter Diagnosis: Hypertension (401.0) [facility] Office Visit On: 19-Jul-2011 9:42 Encounter Reason: Dizziness - The last clinic visit was 1 day(s) ago. No changes in management were made at the last visit. Symptoms include dizziness and difficulty ambulating, while symptoms do not include weakness or End: 19-Jul-2011 9:58 syncope. The dizziness is described as vertigo, a spinning sensation, a sensation of movement and loss of balance. Onset was sudden day(s) ago. There is no known event that preceded symptom onset. The s ymptoms occur constantly. The patient describes this as severe and worsening. Symptoms are exacerbated by head movement, turning the head and standing. Symptoms are relieved by lying still and avoiding head movement. Associated symptoms include nausea and headache, while associated symptoms do not include vomiting. The patient is not currently being treated for this problem.Encounter Diagnosis: Benign paroxysmal positional vertigo (386.11) [facility] Phone Encounter On: 09-Jul-2011 17:26 Encounter Diagnosis: DEPRESSIVE DISORDER (311.0) End: 09-Jul-2011 17:27 [facility] Office Visit On: 02-Jan-2011 9:44 Encounter Reason: Knee Pain - The onset of the knee pain has been sudden following an incident not at work and has been occurring in a persistent pattern for 6 weeks. The course has been constant. The knee pain is modera End: 02-Jan-2011 10:23 te to severe. The knee pain is characterized as a dull aching. The knee pain is described as being located in the medial knee. The knee pain is aggravated by any movement. The knee pain is relieved by e levation of leg. The symptoms have been associated with muscle weakness, medial pain, painful ROM, difficulty arising from chair and difficulty going up and down stairs.Encounter Diagnosis: Knee pain (719.46) [facility] Office Visit On: 09-Oct-2010 11:16 Encounter Reason: Follow up Meds - The patient feels well with no complaints, has good energy level and is sleeping poorly. Patient has been compliant with instructions. Current medication use: experiencing side effects End: 09-Oct-2010 11:50 (joint pain, constipation). Patient sleeps 6 hours per night. Note for Follow up Meds: vesicare Encounter Diagnosis: CONSTIPATION NOS (564.00), Urinary incontinence (788.30) [facility] Office Visit On: 04-Sep-2010 10:05 Encounter Reason: Follow up acute care visit - The patient feeling better since last seen and improving. Patient has been compliant with instructions. Current medication use: no side effects, compliant with dosing regime End: 04-Sep-2010 10:37 n and considered effective by patient. Patient sleeps 7 hours per night. The medical issues the patient is following up for include All identified problems below and other (knee pain/ CP ).Encounter Diagnosis: Chest pain,unspecified (786.59), MYALGIA/MYOSITIS NOS (729.1) [facility] Office Visit On: 21-Aug-2010 10:53 Encounter Reason: Muscle pain - The onset of the pain has been sudden and has been occurring in a persistent pattern for 1 day. The course has been increasing. The pain is described as a severe sharp stabbing (tight pull End: 21-Aug-2010 12:52 ing.). The pain is located in the shoulder (front chest around to back and up neck.). The symptoms are aggravated by physical activity and prolonged rest. The symptoms have no relieving factors. The sym ptoms have been associated with muscle stiffness.Encounter Diagnosis: Knee pain (719.46), Chest pain,unspecified (786.59), MYALGIA/MYOSITIS NOS (729.1) [facility] Annotation/Addendum On: 08-Aug-2010 10:42 Encounter Diagnosis: Unspecified Diagnosis End: 08-Aug-2010 10:45 [facility] Office Visit On: 08-Aug-2010 10:07 Encounter Reason: Knee Pain - The onset of the knee pain has been sudden and has been occurring in an intermittent pattern for 3 weeks. The course has been worsening. The knee pain is moderate. The knee pain is character End: 08-Aug-2010 10:42 ized as a sharp stabbing. The knee pain is described as being located in the inferior patella (L). There were no relieving factors. The symptoms have been associated with burning sensation (shooting), w hile the symptoms have not been associated with pain under patella or warmth.Encounter Diagnosis: Knee pain (719.46) [facility] Internal Medicine Office Visit On: 06-Jul-2010 8:26 Encounter Reason: Sinusitis/ - The duration of the symptoms are 3 days The course has been constant. The sinusitis/ has no relieving factors. Associated features include The symptoms have been associated with cough, ear End: 06-Jul-2010 8:57 pain, nasal discharge/stuffy nose and sinus pain.Encounter Diagnosis: Acute sinusitis, unspecified (461.9) [facility] Office Visit On: 10-May-2010 8:55 Encounter Reason: Sinusitis/ - The duration of the symptoms are 1 week The course has been worsening. The sinusitis/ are relieved by nothing (asa). Associated features include The symptoms have been associated with cough End: 10-May-2010 9:37 , nasal discharge/stuffy nose (yellow/green) and sinus pain, while the symptoms have not been associated with sore throat, swollen lymph glands or teeth pain. No previous evaluations were reported. heart disease.Encounter Diagnosis: Viral infection, unspecified (079.99) [facility] Office Visit On: 12-Dec-2009 11:36 Encounter Reason: Follow up acute care visit - The patient feeling better since last seen and improving. Patient has been compliant with instructions. Current medication use: no side effects ,compliant with dosing regime End: 12-Dec-2009 12:07 n and considered effective by patient. Patient sleeps 7 hours per night. Nutrition: balanced diet. The medical issues the patient is following up for include All identified problems below and URI. Encounter Diagnosis: Limb pain (729.5), Wheezing (786.07), Allergic rhinitis due to other allergen (477.8), Hypertension (401.0) [facility] Phone Encounter On: 06-Dec-2009 13:32 Encounter Diagnosis: Abnormal blood chemistry (790.6) End: 06-Dec-2009 13:39 [facility] Office Visit On: 05-Dec-2009 8:58 Encounter Reason: Wheezing - The onset of the wheezing has been sudden and has been occurring in an intermittent pattern for minutes. The course has been decreasing. There has been no associated chest pain or cough. Encounter Diagnosis: End: 05-Dec-2009 9:51 Limb pain (729.5), Wheezing (786.07), Allergic rhinitis due to other allergen (477.8), Hypertension (401.0) [facility] Office Visit On: 20-Sep-2009 8:18 Encounter Reason: Skin problems - The onset of the skin problem has been sudden and has been occurring in a persistent pattern for 6 weeks. The course has been constant. The skin problem is described as mild. Encounter Diagnosis: End: 20-Sep-2009 8:39 Bruising/Echymosis (459.89) [facility] Office Visit On: 25-Aug-2009 11:03 Encounter Reason: Dizziness/ - The onset of the dizziness/ has been sudden and has been occurring in a persistent pattern for 1 weeks. The course has been increasing. The dizziness/ is characterized as feeling in the hea End: 25-Aug-2009 11:37 d. The dizziness/ is precipitated by position change ,head turning and standing suddenly. The symptoms have been associated with depression (being tx with lexapro) ,headache ,loss of balance and recent head trauma, while the symptoms have not been associated with loss of hearing or nausea. The dizziness/ is relieved by keeping head still and laying down. Encounter Diagnosis: Headache (784.0), Bruising/Echymosis (459.89), Dizziness(780.4) [facility] Office Visit On: 18-May-2009 13:28 Encounter Reason: Follow up for chronic medical issues - The patient feels well with no complaints. Patient has been compliant with instructions. Current medication use: no side effects. Patient sleeps 9 hours per night. End: 18-May-2009 14:10 Nutrition: balanced diet. The medical issues the patient is following up for include All identified problems below ,depression ,gastric reflux ,high blood pressure ,high cholesterol ,hypothyroid and osteoarthritis. Encounter Diagnosis: Incontinence (788.39), Hypertension (401.0), Hypothyroidism (244.9), Obesity (278.00), Knee pain (719.46), Other malignant neoplasm of skin of other and unspecified parts of face (173.3) [facility] Office Visit On: 15-Apr-2009 12:55 Encounter Diagnosis: Unspecified Diagnosis End: 15-Apr-2009 12:56 [facility] Office Visit On: 17-Mar-2009 11:42 Encounter Diagnosis: Lesion-Unknown behavior (238.2), Other specified disorders of skin (709.8) End: 20-Mar-2009 20:05 [facility] Phone Encounter On: 18-Feb-2009 15:12 Encounter Diagnosis: Abnormal TSH (794.5) End: 18-Feb-2009 15:13 [facility] Office Visit On: 17-Feb-2009 10:32 Encounter Reason: Follow up, Laboratory Test Results - Lab results: other (Lipid, ). Date: (01/2009). Current symptoms/reason for visit include/s Follow up visit with no current symptoms. Past medical history includes aram End: 17-Feb-2009 11:03 vated cholesterol ,elevated triglycerides and hypertension. Encounter Diagnosis: Osteoarthritis (715.96), Abnormal TSH (794.5), Lesion-Unknown behavior (238.2), Hypercholesteremia (272.0) [facility] Office Visit On: 16-Dec-2008 16:31 Encounter Diagnosis: Abnormal TSH (794.5) End: 16-Dec-2008 16:33 [facility] Office Visit On: 15-Nov-2008 8:48 Encounter Reason: Follow up for chronic medical issues - The patient feels well with minor complaints ,has good energy level and is sleeping well. Patient has been compliant with instructions. Current medication use: no End: 15-Nov-2008 10:01 side effects. Patient sleeps 8 (when she takes something for the pain in knee) hours per night. Impact of disease: no overall impact. Nutrition: balanced diet. The medical issues the patient is followin g up for include All identified problems below ,gastric reflux ,high blood pressure ,hypothyroid ,osteoporosis/osteopenia and other. , [ADDITIONAL REASON] Follow up, Laboratory Test Results - Lab results: other (Lipid, CMP, CBC, TSH). Date: (11/06). Encounter Diagnosis: DEPRESSIVE DISORDER (311.0), Incontinence (788.39), Hypothyroidism (244.9), Hypercholesteremia (272.0) [facility] Office Visit On: 11-Nov-2008 11:52 Encounter Diagnosis: Unspecified Diagnosis End: 11-Nov-2008 11:58 [facility] Annotation/Addendum On: 11-Nov-2008 11:45 Encounter Diagnosis: Abnormal TSH (794.5) End: 11-Nov-2008 11:52 [facility] Annotation/Addendum On: 10-Nov-2008 16:42 Encounter Diagnosis: Hypertension (401.0) End: 10-Nov-2008 16:48 [facility] Office Visit On: 18-Oct-2008 11:21 Encounter Reason: Skin changes - The onset of the skin changes has been acute and they have been occurring in a persistent pattern for 1 days (today). The course has been constant. The skin changes are described as moderate. , End: 18-Oct-2008 12:14 [ADDITIONAL REASON] Coumadin visit - Symptoms reported: bruising. Current medicaion use: compliant with dosing regimen. Encounter Diagnosis: Other pulmonary embolism and infarction (415.19), Osteoarthritis (715.96), Hypothyroidism (244.9), SCREENING FOR ANEMIA (V78.0), Screening for hyperlipidemia (V77.91) [facility] Office Visit On: 16-Sep-2008 13:55 Encounter Reason: Coumadin visit - Denies following symptoms: blood in urine ,bruising ,nausea ,prolonged bleeding or spontaneous bleeding. Date: (08/31/08). Encounter Diagnosis: Other pulmonary embolism and infarction (415.19) End: 22-Sep-2008 20:49 [facility] Nurse Visit On: 31-Aug-2008 11:28 Encounter Diagnosis: Other pulmonary embolism and infarction (415.19) End: 06-Sep-2008 11:11 [facility] Office Visit On: 20-Aug-2008 14:38 Encounter Reason: Coumadin visit - 7 days ago. Current medicaion use: compliant with dosing regimen. Encounter Diagnosis: Other pulmonary embolism and infarction (415.19), Long-term (current) use of anticoagulants (V58.61) End: 23-Aug-2008 9:28 [facility] Office Visit On: 13-Aug-2008 14:43 Encounter Diagnosis: Other pulmonary embolism and infarction (415.19) End: 16-Aug-2008 15:17 [facility] Nurse Visit On: 23-Jul-2008 13:51 Encounter Diagnosis: Other pulmonary embolism and infarction (415.19) End: 23-Jul-2008 14:08 [facility] Nurse Visit On: 16-Jul-2008 13:32 Encounter Diagnosis: Other pulmonary embolism and infarction (415.19) End: 16-Jul-2008 14:08 [facility] Nurse Visit On: 13-Jul-2008 11:08 Encounter Diagnosis: Other pulmonary embolism and infarction (415.19) End: 13-Jul-2008 11:52 [facility] Nurse Visit On: 07-Jun-2008 14:30 Encounter Diagnosis: Other pulmonary embolism and infarction (415.19) End: 07-Jun-2008 14:32 [facility] Office Visit On: 14-May-2008 14:20 Encounter Reason: Coumadin visit - 7 days ago. Current medicaion use: compliant with dosing regimen. Encounter Diagnosis: Other pulmonary embolism and infarction (415.19) End: 17-May-2008 9:03 [facility] Office Visit On: 06-May-2008 10:23 Encounter Reason: Coumadin visit - Denies following symptoms: blood in urine ,bruising ,nausea ,prolonged bleeding or spontaneous bleeding. Date: (05/03/08). Current medicaion use: compliant with dosing regimen and experiencing no side effects. End: 06-May-2008 10:50 Encounter Diagnosis: Other pulmonary embolism and infarction (415.19) [facility] Office Visit On: 03-May-2008 8:23 Encounter Reason: Cough - The onset of the cough has been acute (Saturday night). The cough is characterized as productive of mucoid sputum (green). The amount of sputum produced is scanty. The cough occurs all the time. End: 03-May-2008 22:37 The symptoms are not aggravated by smoking ,supine posture or meals. The symptoms have been associated with headache ,sore throat and wheezing. the color of the sputum is greenish. Note for Cough: maria a mcmanus has been getting her vicoden from [employer] - so encoruaged her to discuss with himEncounter Diagnosis: Upper respiratory infection (465.9), Other pulmonary embolism and infarction (415.19), Fatigue (780.79) [facility] Office Visit On: 20-Apr-2008 10:53 Encounter Reason: Coumadin visit - Denies following symptoms: bruising or prolonged bleeding. Date: (04/05/08). Current medicaion use: compliant with dosing regimen. Encounter Diagnosis: Other pulmonary embolism and infarction (415.19) End: 20-Apr-2008 11:05 [facility] Nurse Visit On: 05-Apr-2008 9:58 Encounter Diagnosis: Other pulmonary embolism and infarction (415.19) End: 05-Apr-2008 10:22 [facility] Phone Encounter On: 22-Mar-2008 10:56 [facility] End: 22-Mar-2008 11:06 Office Visit On: 22-Mar-2008 10:26 Encounter Reason: Follow up acute care visit - The patient feeling better since last seen and improving. Patient has been compliant with instructions. Current medication use: no side effects and compliant with dosing reg End: 22-Mar-2008 10:42 imen. Patient sleeps 7 hours per night. Impact of disease: emotional impact-mild. Nutrition: balanced diet. The medical issues the patient is following up for include cellulitis and other (PE). Encounter Diagnosis: Other pulmonary embolism and infarction (415.19), Abdominal Pain,LLQ (789.04) [facility] Office Visit On: 16-Mar-2008 8:48 [facility] End: 16-Mar-2008 8:49 Office Visit On: 16-Mar-2008 8:29 Encounter Reason: Follow up acute care visit - The patient feeling better since last seen and has decreased energy level. Patient has been compliant with instructions. Current medication use: no side effects ,compliant w End: 16-Mar-2008 8:45 ith dosing regimen and considered effective by patient. Patient sleeps 7 hours per night. Impact of disease: emotional impact-mild. Nutrition: balanced diet. The medical issues the patient is following up for include cellulitis (abdomen ) and other (PE ). Note for Follow up acute care visit: still significant SOB, stillhave to rest alot, hard to even go up a flight of stairs, no more swelling in legs. area on abd less painful, less swolen, Encounter Diagnosis: Other pulmonary embolism and infarction (415.19), SOB (786.05), Cellulitis (682.9) [facility] Nurse Visit On: 11-Mar-2008 13:26 Encounter Diagnosis: Other pulmonary embolism and infarction (415.19), Cellulitis (682.9), SOB (786.05) End: 11-Mar-2008 14:31 [facility] Phone Encounter On: 03-Mar-2008 15:21 [facility] End: 03-Mar-2008 15:21 Office Visit On: 02-Mar-2008 12:09 [facility] End: 02-Mar-2008 16:51 Office Visit On: 02-Mar-2008 11:48 Encounter Reason: Follow up ER - Reason for hospitalization note: (PE). Patient has been compliant with instructions. Current medication use: no side effects and compliant with dosing regimen. The patient does not feel w End: 02-Mar-2008 12:04 ell and has decreased energy level. Patient sleeps 6 hours per night. Impact of disease: emotional impact-mild. Nutrition: balanced diet. Note for Follow up ER: tired, real SOB stilll wheezing good. still on lovenox. bruising abdomin Encounter Diagnosis: Other pulmonary embolism and infarction (415.19) [facility] Office Visit On: 26-Feb-2008 8:27 Encounter Reason: Wheezing - The onset of the wheezing has been sudden and has been occurring in an intermittent pattern for 2 days. The course has been increasing. The symptoms exercise (if up moving - needs to sit down End: 26-Feb-2008 12:25 ). There has been no associated atopy ,chest pain ,cough ,dyspnea ,eczema ,family history of asthma ,hay fever ,hemoptysis ,history of COPD ,history of heart disease ,long history of smoking ,nasal kedar yps ,productive sputum or use of beta blockers. Note for Wheezing: is recovering from vein surgery Encounter Diagnosis: Other pulmonary embolism and infarction (415.19), Wheezing (786.07), SOB (786.05), Knee pain (719.46) [facility] Office Visit On: 11-Dec-2007 9:34 Encounter Reason: Follow up acute care visit - The patient feeling better since last seen and improving. Patient has been compliant with instructions. Current medication use: no side effects ,compliant with dosing regime End: 11-Dec-2007 10:30 n and considered effective by patient. Patient sleeps 7 hours per night. Impact of disease: emotional impact-moderate. Nutrition: balanced diet. The medical issues the patient is following up for include other (SVT ). Encounter Diagnosis: superficial thrombophlebitis [facility] Office Visit On: 27-Nov-2007 12:21 Encounter Reason: Follow up acute care visit - The patient feeling better since last seen. Patient has been compliant with instructions. Current medication use: no side effects and compliant with dosing regimen. Patient End: 27-Nov-2007 13:11 sleeps 7 hours per night. Impact of disease: emotional impact-moderate. Nutrition: balanced diet. The medical issues the patient is following up for include other (superficial thrombophlebitis ). Encounter Diagnosis: superficial thrombophlebitis [facility] Office Visit On: 20-Nov-2007 8:35 Encounter Reason: Follow up ER - Reason for hospitalization DVT (possibly ). Patient has been compliant with instructions. Current medication use: no side effects ,compliant with dosing regimen and considered effective b End: 20-Nov-2007 9:10 y patient. The patient does not feel well and has decreased energy level. Patient sleeps 6 hours per night. Impact of disease: emotional impact-moderate. Nutrition: balanced diet. Post operative complications include DVT (? questionable ). Encounter Diagnosis: superficial thrombophlebitis [facility] Office Visit On: 06-Nov-2007 7:58 Encounter Reason: Follow up for chronic medical issues - The patient feels well with minor complaints ,has decreased energy level and is sleeping well. Patient has been compliant with instructions. Current medication use End: 06-Nov-2007 8:22 : no side effects ,compliant with dosing regimen and considered effective by patient. Patient sleeps 7 hours per night. Impact of disease: emotional impact-mild. Nutrition: balanced diet and supplementa l vitamins. The medical issues the patient is following up for include cardiac issues ,depression ,high blood pressure ,high cholesterol ,hypothyroid ,osteoarthritis and other (obesity, wheezing ). Encounter Diagnosis: Hypothyroidism (244.9), Incontinence (788.39), Wheezing (786.07), Unspecified menopausal and postmenopausal disorder (627.9), Chest pain,unspecified (786.59), Gastritis (535.00), Knee pain (719.46), Obesity (278.00), Osteoarthritis (715.96), Sinusitis,chronic (473.9), Hypertension 401.1 (Renamed from Hypertension (401.0)), SYMPTOMS INVOLVING RESPIRATORY SYSTEM AND OTHER CHEST SYMPTOMS; COUGH (786.2), Acute sinusitis, unspecified (461.9), GERD (530.81), Fatigue (780.79), SOB (786.05), BRONCHITIS, NOT SPECIFIED ACUTE OR CHRONIC (490.), Influenza with other respiratory manifestations (487.1), Disequilibrium of Gait(781.2), Foliculitis (704.8), Other seborrheic keratosis (702.19), WWV V70.0 [facility] Office Visit On: 24-Sep-2007 8:19 Encounter Reason: Sinusitis/ - The duration of the symptoms are 1 day The course has been worsening. The sinusitis/ are relieved by OTC cold medications (dayquil) and Tylenol. Associated features include The symptoms hav End: 24-Sep-2007 8:50 e been associated with cough (dry) ,ear pain ,nasal discharge/stuffy nose ,purulent nasal discharge ,sinus pain ,sore throat and swollen lymph glands, while the symptoms have not been associated with pu rulent discharge from ear ,red eyes or teeth pain. No previous evaluations were reported. none reported. Encounter Diagnosis: Acute sinusitis, unspecified (461.9), SYMPTOMS INVOLVING RESPIRATORY SYSTEM AND OTHER CHEST SYMPTOMS; COUGH (786.2), Hypertension (401.0) [facility] Annotation/Addendum On: 11-Aug-2007 10:43 Encounter Diagnosis: SYMPTOMS INVOLVING RESPIRATORY SYSTEM AND OTHER CHEST SYMPTOMS; COUGH (786.2) End: 11-Aug-2007 10:47 [facility] Office Visit On: 05-Aug-2007 8:44 Encounter Reason: Cough - The onset of the cough has been sudden (started saturday morning ). The cough is characterized as dry. The cough occurs all the time. The symptoms have been associated with fever (didn't take has End: 05-Aug-2007 11:19 been warm ) ,headache (frontal) ,hoarseness and sore throat, while the symptoms have not been associated with dysphagia ,dyspnea ,edema ,foreign body aspiration ,hemoptysis ,long history of smoking ,nig ht sweats ,runny nose ,weight loss ,wheezing or heartburn. Encounter Diagnosis: BRONCHITIS, NOT SPECIFIED ACUTE OR CHRONIC (490.), SYMPTOMS INVOLVING RESPIRATORY SYSTEM AND OTHER CHEST SYMPTOMS; COUGH (786.2), Influenza with other respiratory manifestations (487.1) [facility] Office Visit On: 27-May-2007 9:25 Encounter Reason: Follow up for chronic medical issues - The patient feels well with minor complaints ,has good energy level and is sleeping well. Patient has been compliant with instructions. Current medication use: no End: 27-May-2007 10:06 side effects ,compliant with dosing regimen and considered effective by patient. Patient sleeps 7 hours per night. Impact of disease: emotional impact-mild. Nutrition: balanced diet and supplemental vit amins. The medical issues the patient is following up for include depression ,gastric reflux ,high blood pressure ,hypothyroid ,osteoporosis/osteopenia and other (obesity ). 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 if lay down some raspy and squeak in lungs. no cough or congestionEncounter Diagnosis: Hypothyroidism (244.9), Incontinence (788.39), Hypertension (401.0), Fatigue (780.79), Knee pain (719.46), Gastritis (535.00), SYMPTOMS INVOLVING RESPIRATORY SYSTEM AND OTHER CHEST SYMPTOMS; COUGH (786.2), Sinusitis,chronic (473.9), GERD (530.81), Other seborrheic keratosis (702.19), Chest pain,unspecified (786.59), Osteoarthritis (715.96), Obesity (278.00), SOB (786.05), Unspecified menopausal and postmenopausal disorder (627.9), Disequilibrium of Gait(781.2), Viral infection, unspecified (079.99), Wheezing (786.07), Foliculitis (704.8) [facility] Office Visit On: 10-Jan-2007 7:33 Encounter Reason: Skin changes - The onset of the skin changes has been gradual and they have been occurring in a persistent pattern for 1 months (moles 1 below each breast have gotten darker and grown in size ). The cou End: 10-Jan-2007 8:02 rse has been constant. The skin changes are described as mild. Encounter Diagnosis: Other seborrheic keratosis (702.19), Obesity (278.00) [facility] Office Visit On: 05-Aug-2006 11:16 Encounter Reason: Follow up Meds - The patient feels well with minor complaints (nasal discharge is bloody sometimes) ,has decreased energy level (has been working with PT for swelling) and is sleeping well. Patient has End: 05-Aug-2006 11:55 been compliant with instructions. Current medication use: no side effects ,compliant with dosing regimen and considered effective by patient (combination of detrol and detrol LA works wonderfully). Yolanda ent sleeps 8 hours per night. Nutrition: balanced diet. Note for Follow up Meds: knee still swollen from falls--helped PT,better in neck, start working on kneeEncounter Diagnosis: Incontinence (788.39), Hypertension (401.0), Unspecified menopausal and postmenopausal disorder (627.9), Hypothyroidism (244.9), Knee pain (719.46), Disequilibrium of Gait(781.2), Gastritis (535.00), SYMPTOMS INVOLVING RESPIRATORY SYSTEM AND OTHER CHEST SYMPTOMS; COUGH (786.2), GERD (530.81), Fatigue (780.79), Obesity (278.00), Chest pain,unspecified (786.59), Syncope (780.2) [facility] Historical Summary On: 05-Aug-2006 10:05 [facility] End: 05-Aug-2006 10:18 Phone Encounter On: 20-May-2006 8:35 Encounter Diagnosis: Unspecified Diagnosis End: 20-May-2006 8:36 [facility] Historical Summary On: 26-Mar-2006 17:07 [facility] End: 26-Mar-2006 17:10 Office Visit On: 22-Mar-2006 14:32 Encounter Reason: Knee Pain - The onset of the knee pain has been sudden (Pt states she has fallen 5 times since May) and has been occurring for months. The course has been worsening. The knee pain is mild to modera End: 22-Mar-2006 19:02 te. The knee pain is characterized as a sharp stabbing. The knee pain is described as being located in the entire knee. The knee pain is aggravated by physical activity ,any movement ,twisting ,squattin g ,kneeling and climbing. The knee pain is relieved by medication (Lidoderm Patch). The symptoms have been associated with decreased ROM. Note for Knee Pain: keep falling, [place], not knee, [ADDITIONAL REASON] Sore throat - The onset of the sore throat has been acute and has been occurring for days. The course has been worsening. The symptoms have been associated with cough ,difficulty in swallowing ,ear pain (itch) ,post-nasal drip and runny nose, while the symptoms have not been associated with sinus pain. , [ADDITIONAL REASON] Syncope - The onset of the syncope has been gradual and has been occurring for 1 0 months. The course has been increasing. The syncope was precipitated by head turning (to the right). There has been no associated dizziness ,focal neurological deficit ,headache ,loss of bladder contr ol ,loss of bowel control ,palpitations ,seizures ,speech disturbances ,sweating ,vertigo ,visual changes or weakness. Note for Syncope: never passed out, drop attacks, gait normal, post fall you feel okay Encounter Diagnosis: Knee pain (719.46), Hypothyroidism (244.9), Incontinence (788.39), Obesity (278.00), Osteoarthritis (715.96), Chest pain,unspecified (786.59), Syncope (780.2), Viral infection, unspecified (079.99) [facility] Historical Summary On: 15-Mar-2006 11:01 [facility] End: 15-Mar-2006 11:02 Payers [facility] [phone] [id number]
--- OUTSIDE RECORDS SUMMARY | 2018-07-24 21:13 | XMS RPT_ITS | Continuity of Care Document ---
:1945 External Reference #:[id number] Author Organization [facility] Address [address] [facility] [address] [place] [address] Phone Care Team Providers Name Role Phone Serena Quiñonez CNP Unavailable Anette Connolly Unavailable Michael Duncan Unavailable Sienna ELLINGTON Logan Gómez Unavailable Slarb AIR BATTLE MANAGER, Cheryle Unavailable Unavailable Long AIR BATTLE MANAGER, Kalie L Unavailable Unavailable Unavailable Unavailable Problems [...] 715.90) Comments: stable on gabapentin seen at [facility] arthritis neck arthritis and knee pain , has seen Dr. Coughlin for neck pain for injectionwas seen at [facility] arthritis given gabapentinwas taking melox icam daily [...] 1 MG Oral Tablet 1 (one) Tablet daily prn ONLY for 0 days Quantity: 30 {Tablet} Refills: 0 Ordered:08-Apr-2018 Olamide MARTINEZ, Serena Patton CNP, Serena Mcmanus Start : 08-Apr-2018 Active Comments:OARRS lwhsllltI51.9f43.21Thirty Losartan Potassium 50 MG Oral Tablet 1 [...] Quantity: 20 {Tablet} Refills: 0 Ordered:15-Aug-2016 Lupe JOHNSONCheryle Pineda Start : 15-Aug-2016 End : 25-Aug-2016 Inactive BIAXIN XL PAC, 500MG (Oral Tablet Extended Release 24 Hour) 2 (two) Tablet ER 24HR daily for 10 days Quantity: 20 {Tablet} Refills: 0 Ordered:09-Jun-2014 Jonathanmichelle MARTINEZ, Serena Patton ACCOUNT COORDINATOR, Bren Start : 09-Jun-2014 End : 19-Jun-2014 Inactive CHONDROITIN SULFATE-VIT C-MN, 400-60-2.5MG (Oral Capsule) 1 (one) Capsule daily for 0 days Refills: 0 Ordered:17-Feb-2009 RAMA Webster Start : 17-Feb-2009 End : 17-Mar-2009 Inactive CIPROFLOXACIN HCL, 500MG (Oral Tablet) 1 (one) Tablet bid for 7 days Quantity: 14 {Tablet} Refills: 0 Ordered:27-Jun-2015 Olamide ACCOUNT COORDINATOR, Serena Patton ACCOUNT COORDINATOR, Bren Start : 27-Jun-2015 End : 04-Jul-2015 Inactive CITRACAL/VITAMIN D, 829-979PJ-PWAB (Oral Tablet) 2 QD for 0 days Refills: 0 Ordered:03-Oct-2011 Abby Jones LPN End : 03-Oct-2011 Inactive CLARINEX REDITABS, 5MG (Oral Tablet Dispersible) 1 (one) Tablet Disperse daily for 0 days Quantity: 5 {Tablet_Disperse} Refills: 0 Ordered:06-Jul-2010 RAMA Webster Start : 05-Dec-2009 End : 06-Jul-2010 Inactive CORTISPORIN, 3.5-66741-5 (Otic Solution) 4 Solution Solution tid for 0 days Quantity: 1 {Bottle} Refills: 0 Ordered:16-Oct-2013 Abby Jones LPN Start : 11-Aug-2013 End : 16-Oct-2013 Inactive Cymbalta 30 MG Oral Capsule Delayed Release Particles 1 (one) Capsule Capsule PO Daily for 30 days Quantity: 30 {Capsule} Refills: 0 Ordered:30-Dec-2017 Lupe JOHNSONBi Pinedaa Start : 30-Dec-2017 End : [...] needed for 30 days Refills: 0 Ordered:15-Aug-2015 Serena Quiñonez CNP, CNP, Mary E Start : 27-Jun-2015 End : 27-Jul-2015 Inactive Comments:Medication taken as needed. GUAIATUSSIN AC, 100-10MG/5ML (Oral Syrup) 1 Syrup 1 tsp qhs as needed for 0 days Quantity: 6 {Ounce(s)} Refills: 0 Ordered:03-Nov-2012 JatinderpankjachulaMillie Start : 29-Sep-2012 End : 03-Nov-2012 Inactive [...] days Quantity: 30 {Tablet} Refills: 0 Ordered:28-Sep-2011 Olamide MARTINEZ, Serena Patton CNP, Serena Mcmanus Start : 08-Aug-2010 End : 28-Sep-2011 Inactive NYSTOP, 308684FGYQ/GM (External Powder) Powder take as directed for [...] for 7 days Refills: 0 Ordered:15-Jul-2012 Branditim ACCOUNT COORDINATOR, Serena Patton CNP, Serena Mcmanus Start : 20-Jun-2012 End : [...] for 30 days Refills: 0 Ordered:18-Nov-2015 Olamide MICHELLE, Serena Patton CNP, Serena Mcmanus Start : [...] days Quantity: 30 {Capsule} Refills: 6 Ordered:10-Nov-2008 Brandishanamichelle MARTINEZ, Sernea Patton CNP, Serena Mcmanus Start : 10-Nov-2008 [...] 5 Ordered:18-Oct-2008 Olamide MARTINEZ, Serena Patton CNP, Serena Mcmanus Start : 18-Oct-2008 End : 18-Oct-2008 Discontinued Comments:disp.#100 with3 refills COUMADIN, 2MG (Oral Tablet) 11/2 Tablet QD for 0 days Quantity: 30 {Tablet} Refills: 5 Ordered:11-Nov-2008 Olamide MARTINEZ, Serena Patton ACCOUNT COORDINATOR, Serena Mcmanus Start : 11-Nov-2008 End : 11-Nov-2008 Discontinued [...] Quantity: 1 {Tube} Refills: 0 Ordered:02-Nov-2014 Slarb AIR BATTLE MANAGER, Cheryle Start : 30-Jun-2014 End : 02-Nov-2014 Discontinued TYLENOL WITH CODEINE #3, 300-30MG (Oral Tablet) 1 (one) Tablet q6-8 hrs prn for 0 days Quantity: 30 {Tablet} Refills: 0 Ordered:27-Jun-2015 Slarb AIR BATTLE MANAGER, Cheryle Start : 11-Mar-2015 End : 27-Jun-2015 Discontinued TYLENOL, 325MG (Oral Tablet) 1 PRN for 0 days Refills: 0 Ordered:27-Jun-2015 Slarb AIR BATTLE MANAGER, Cheryle Start : 02-Mar-2015 End : 27-Jun-2015 [...] (K29.70, 535.50) Comments: mild followed by Dr. Jabour. Status: Inactive as of 02-Nov-2016 Gastritis, acute [...] (M79.609, 729.5) Status: Inactive as of 24-May-2014 longterm (current) use of anticoagulants (Z79.01, V58.61) Status: [...] Study (HP) Result: Comments: See Note; NOTES: [facility] Imaging Services [address] [place] [address] Verda 4d Dexa Bone Density Study (HP) MR#: [id number] Acct: [id number] Name: EVENS SERRANO Rep #: [id number] : 1945 F 71 From: Michael Noland MD PCP: Serena Quiñonez Status: REG CLI Study: Dexa Bone Density Study (HP) Date of Exam: 11/13/16 Exam# [id number] Ordering Dr: Kyle Quiñonez STUDY: DUAL ENERGY [...] Michael Noland MD at 7:57 EDT Tel [phone], Service support , CC: Serena Quiñonez Ultrasonic Welding Machine Operator: Signed 13-Nov-2016 SCREENING MAMM (CAD), BILAT Result: Comments: See Note; NOTES: [facility] Imaging Services [address] [place] [address] Theodoredashira 4d SCREENING MAMM (CAD), BILAT MR#: [id number] Acct: [id number] Name: TRINI SERRANO D Rep #: [id number] : 1945 F 71 From: Michael Noland MD PCP: Serena Quiñonez Status: REG CLI Study: SCREENING MAMM (CAD), BILAT Date of Exam: 11/13/16 Exam# [id number] Ordering Dr: Yudith Quiñonez y MAMMOGRAPHY - [...] y biopsy of a clinically suspicious abnormality. [id number] Electronically Signed: Michael Noland MD at 8:11 EDT Tel [phone], Service support , CC: Serena Quiñonez Ultrasonic Welding Machine Operator: Signed 17-Aug-2016 Chest PA and Lateral Result: Comments: See Note; NOTES: [facility] Imaging Services [address] [place] [address] Verdana 4d Chest PA and Lateral MR#: [id number] Acct: [id number] Name: MAURICIO SERRANO p #: [id number] : 1945 F 71 From: Michael Noland MD PCP: Micki Cruz MD Status: REG CLI Study: Chest PA and Lateral Date of Exam: 08/17/16 Exam# [id number] Ordering Dr: Serena Quiñonez STUDY: X-RAY CHEST [...] Michael Noland MD at 14:44 EST Tel [phone], Service support [phone], CC: Serena Quiñonez; Micki Cruz MD Ultrasonic Welding Machine Operator: Signed 03-Oct-2015 PT D/C Summary (1) Result: Comments: See Note; NOTES: [facility] Physical Therapy [facility] [address] [place] [address] Fax REHABILITATION SE [place] DISCHARGE SUMMARY MR#: [id number] Acct: [id number] Name: MAURICIO SERRANO Rep #: [id number] : 1945 70 From: Bolivar Newell DPT, OCS, CSCS Referring Dr.: OUT OF [facility] DOCTOR Status: REG RCR Eval Date: Discharge Date: HP - PT D/C Summary It has been my pleasure to treat MAURICIO SERRANO under orders from [facility] Doctor, SARATH HERNANDEZ for the diagnosis of [...] well. Taking meds at night to sleep. Paradox dy to be done with PT. - [...] please feel free to call me at [phone]. Thank you for the referral of this patient. Sincerely, Bolivar Newell <Electronically signed by Bolivar Newell DPT, OCS, CSCS> 10/14 0646 CC: SARATH HERNANDEZ; Micki Cruz MD; OUT OF TOWN DOCTOR EBG Signed 09-Sep-2015 Re-Evaluation - PT (1) Result: Comments: See Note; NOTES: [facility] Physical Therapy [facility] [address] [place] [address] Fax REEVALUATION / ME DICARE RECERTIFICATION [place] 4d PHYSICAL THERAPY MR#: [id number] Acct: [id number] Name: MAURICIO SERRANO Rep #: [id number] : 1945 70 From: Bolivar Newell DPT, OCS, CSCS Referring Dr.: T [facility] DOCTOR Status: REG RCR Insurance: [employer] Out of [facility] Doctor, SARATH HERNANDEZ It has been [...] do not hesitate to contact me at [phone] by phone or if you have questions [...] Discharge Instruction Result: Comments: See Note; NOTES: [facility] Medical Records Department [address] [place] [address] Discharge Instruction 08/14/152021 MR#: [id number] Acct: [id number] Name: MAURICIO SRERANO Germaine Rep #: [id number] : 1945 70 From: Logan Keen MD PCP: Micki Cruz MD Status: DEP ER ED Disposition - Plan for ED Patient: Chief Complaint: Lower Extremity Injury Instructions: ED Dyspnea What to do if you have Problems For any increased pain, shortness of breath, bleeding, nausea or vomiting, chest pain, or any unexpected problems, contact your do ctor. Call Doctors [facility] ([phone]) or report to the closest Emergency Room. Call 911 if necessary. 08/18/15 0746 <Electronically signed by Logan Keen MD> Date ____ Logan Keen MD Cosigner Signature (If Indicated): Date CC: Micki Cruz MD 18-Aug-2015 Emergency Department Summary Result: Comments: See Note; NOTES: [facility] Medical Records Department [address] [place] [address] Emergency Department Summary MR#: [id number] Acct: [id number] Name: MAURICIO SERRANO Rep #: [id number] : 1945 70 From: Logan Keen MD PCP: Micki Cruz MD Status: DEP ER DATE OF SERVICE: 08/14/2015 CHIEF COMPLAINT: Shortness of breath, leg swelling. HISTORY OF PRESENT ILLNESS: A 70-year-old female who is 5 days status post left total knee repair done at [place], presents with shortness of breath and leg [...] Discharge. Logan Keen MD T: NTS JOB: [id number] 08/18/15 0746 <Electronically signed by Logan stovall MD> Date Logan Keen MD Cosigner Signature (If Indicated): Date CC: Micki christine MD Date Dictated: 08/14/152021 Date Transcribed: 08/14/152021 Ultrasonic Welding Machine Operator: Signed 14-Aug-2015 CTA Chest W/WO Contrast Result: Comments: See Note; NOTES: [facility] Imaging Services [address] [place] [address] Verdashira 4d CTA Chest W/WO Contrast MR#: [id number] Acct: [id number] Name: MAURICIO DORAN Rep #: [id number] : 1945 F 70 From: Sandy Lundberg MD PCP: Micki Cruz MD Status: REG ER Study: CTA Chest W/WO Contrast Date of Exam: 08/14/15 Exam# [id number] Ordering Dr: Logan Velasquez MD STUDY: CTA [...] MD at 20:03 EST , Service support [phone], CC: Germaine Cruz MD; Logan Keen MD Ultrasonic Welding Machine Operator: Signed 12-Aug-2015 Inital Evaluation (1) - PT Result: Comments: See Note; NOTES: [facility] Physical Therapy [facility] [address] [place] [address] Fax REHABILITATION SE [place] INITIAL EVALUATION MR#: [id number] Acct: [id number] Name: MAURICIO SERRANO Rep #: [id number] : 1945 70 From: Bolivar Newell DPT, OCS, CSCS Referring Dr.: OUT OF TOWN DOCTOR Status: REG RCR Insurance: [employer] Eval Date: Patient's Visit Information MAURICIO SERRANO is a 70 year old F, referred to Physical Therapy by Out of Town Doctor, ERENDIRA HERNANDEZ, with a diagnosis of L Knee TKA. Date of Evaluation: 08/11/15 Physical Therapist: Bolivar Newell - Visit Plan Frequency: 3x /Week Duration: 4-6 Weeks - Subjective Subjective: 2 days ago had L TKA at [place] by Dr. Salazar. Had bone on bone [...] for shoes but takes time. Has a research and development tester to get socks and pick things up off floor. Sleep: G ood last night b/c didn't sleep the first night. 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 Was exercising at pool three days at HS, gaining weight lately due to knee pain. [...] to be FAXED BACK to us at [phone] for Medicare purposes. Please let me know if there are questions or concerns regarding this plan of care. Physic carlo Signature: Date: <Electronically signed by Bolivar Newell DPT, OCS, CSCS> 08/12/15 0642 CC: SARATH HERNANDEZ; Micki shea MD; OUT OF TOWN DOCTOR EBG Signed For Medicare only, by signing this I certify the plan of care. Physicians Signature Date 12-Jul-2015 ELECTROCARDIOGRAM, COMPLETE (ECG) (51096) Comments: sinus rhythm within normal limits Result: [MEASUREMENTS ANALYSIS] Date of Test: 07/12/2015 13:50:06; Heart Rate: 72; RI Interval: 146; QRS: 90; QT Interval: 392; Corrected QT Interval (QTc): 413; P Wave [place]: 47; QRS Wave [place]: 20; T Wave [place]: 51; Blood Pressure: 122/80 [ECG DIAGNOSTIC STATEMENTS] Date of Test: 07/12/2015 13:50:06; Summary: Sinus Rhythm WITHIN NORMAL LIMITS 30-Jun-2015 Abdomen/Pelvis without Cont Result: Comments: See Note; NOTES: [facility] Imaging Services [address] [place] [address] Verdana 4d Abdomen/Pelvis without Cont MR#: [id number] Acct: [id number] Name: MAURICIO SERRANO Rep #: [id number] : 1945 F 69 From: Bella Meade MD PCP: Micki Cruz MD Status: REG CLI Study: Abdomen/Pelvis without Cont Date of Exam: 06/30/15 Exam# [id number] Alexia england Dr: Serena Quiñonez STUDY: CT [...] at 10:49 EST Tel , Service support [phone], CC: Serena Quiñonez; Micki Cruz MD Ultrasonic Welding Machine Operator: Signed 17-Feb-2015 Abdomen/Pelvis WITH Contrast Result: Comments: See Note; NOTES: [facility] Imaging Services [address] [place] [address] CAT Scan Report MR#: [id number] Acct: [id number] Name: MAURICIO SERRANO Germaine Rep #: [id number] : 1945 F 69 From: Gerald Persaud DO PCP: Micki Cruz MD Status: REG CLI Study: Abdomen/Pelvis WITH Contrast Date of Exam: 02/17/15 Exam# [id number] Ordering Dr: Micki Cruz MD [facility] DY: CT ABDOMEN AND PELVIS WITH [...] at 19:10 EDT Tel , Service support [phone], CC: Micki Cruz MD Ultrasonic Welding Machine Operator: Signed 02-Nov-2014 Chest WITH Contrast Result: Comments: See Note; NOTES: [facility] Imaging Services [address] [place] [address] CAT Scan Report MR#: [id number] Acct: [id number] Name: MAURICIO SERRANO Rep #: [id number] : 1945 F 69 From: Michael Noland MD PCP: Micki Cruz MD Status: REG CLI Study: Chest WITH Contrast Date of Exam: 11/02/14 Exam# [id number] Ordering Dr: Serena Quiñonez STUDY: CTA CHEST [...] Michael Noland MD at 15:54 EDT Tel [phone], Service support [phone], CC: Serena Quiñonez; Micki Cruz MD Ultrasonic Welding Machine Operator: Signed 15-Mar-2014 Toe(s) Min 2 Views Result: Comments: See Note; NOTES: [facility] Imaging Services [address] [place] [address] Radiology Report MR#: [id number] Acct: [id number] Name: MAURICIO SERRANO Rep #: [id number] : 1945 F 68 From: Romaine Tafoya DO PCP: Nancy GIPSON,Micki Status: REG CLI Study: Toe(s) Min 2 Views Date of Exam: 03/15/14 Exam# [id number] Ordering Dr: Serena Quiñonez STUDY: X-RAY LEFT [...] Tafoya DO 2 at 16:54 EDT Tel [phone], Service support [phone], RAD/Toe(s) Min 2 Views IMPRESSION: No acute abnormality of the left second toe. Electron ically Signed: Romaine Tafoya DO at 16:54 EDT Tel [phone], Service support [phone], CC: Serena Quiñonez; Micki Cruz MD Ultrasonic Welding Machine Operator: Signed 15-Feb-2014 Spine Cervical without Contras Result: Comments: See Note; NOTES: [facility] Imaging Services [address] [place] [address] CAT Scan Report MR#: [id number] Acct: [id number] Name: MAURICIO SERRANO Rep #: [id number] : 1945 F 68 From: Michael Noland MD PCP: Micki Cruz MD Status: REG CLI Study: Spine Cervical without Contras Date of Exam: 02/15/14 Exam# [id number] Ordering Dr: Micki Cruz MD STUDY: CT [...] Noland MD at 14:08 E DT Tel [phone], Service support [phone], CC: Micki Cruz MD Ultrasonic Welding Machine Operator: Signed 11-Feb-2014 Cerv Spine 4 or 5 Views Result: Comments: See Note; NOTES: [facility] Imaging Services [address] [place] [address] Radiology Report MR#: [id number] Acct: [id number] Name: MAURICIO SERRANO Rep #: [id number] : 1945 F 68 From: Julio Charles DO PCP: Micki Cruz MD Status: REG CLI Study: Cerv Spine 4 or 5 Views Date of Exam: 02/11/14 Exam# [id number] Ordering Dr: Serena Quiñonez STUDY: X-RAY - [...] CT if clinically indicated. Electronically Signed: Julio Charles DO at 19 :48 EDT Tel [phone], Service support [phone], CC: Serena Quiñonez; Micki Cruz MD Ultrasonic Welding Machine Operator: Signed 09-Oct-2013 Knee 4 or More Views Result: Comments: See Note; NOTES: [facility] Imaging Services [address] [place] [address] Radiology Report MR#: [id number] Acct: [id number] Name: MAURICIO SERRANO Rep #: [id number] : 1945 F 68 From: Romaine Tafoya DO PCP: Micki Cruz MD Status: REG CLI Study: Knee 4 or More Views Date of Exam: 10/09/13 Exam# [id number] Ordering Dr: Serena Quiñonez STUDY: X-RAY - [...] Romaine Tafoya DO at 19:01 EDT Tel [phone], Service support [phone], CC: Serena Quiñonez; Micki Cruz MD Ultrasonic Welding Machine Operator: Signed 03-Sep-2013 Hepatobilliary Imaging Result: Comments: See Note; NOTES: [facility] Imaging Services [address] [place] [address] Nuclear Medicine Report MR#: [id number] Acct: [id number] Name: MAURICIO SERRANO Rep #: [id number] : 1945 F 68 From: Gene Diallo DO PCP: Micki Cruz MD Status: REG CLI Study: Hepatobilliary Imaging Date of Exam: 09/03/13 Exam# [id number] Ordering Dr: Catalina Daly DO CLINICAL: 68-year-old [...] M.D. at 7:07 EST , Service support [phone], Fa x [phone] CLINICAL: 68-year-old female with reported history of [...] CC: Micki Cruz MD; Catalina Daly DO Ultrasonic Welding Machine Operator: Signed 27-Aug-2013 Gallbladder Result: Comments: See Note; NOTES: [facility] Imaging Services [address] [place] [address] Ultrasound Report MR#: [id number] Acct: [id number] Name: MAURICIO SERRANO Rep #: [id number] : 1945 F 68 From: Michael Noland MD PCP: Micki Cruz MD Status: REG CLI Study: Gallbladder Date of Exam: 08/27/13 Exam# [id number] Ordering Dr: Catalina Daly DO STUDY: AB [...] M.D. at 10:31 EST , Service support [phone], CC: Micki Cruz MD; Catalina Daly DO Ultrasonic Welding Machine Operator: Signed Family History Unknown Family Member Name Dates Details Father Comments: Relatively healthy 1999 Status: Active Mother Comments: Diabetes, HTN Status: [...] kg/m2 Body Surface Area Calculated 1.98 m2 63-Dmh-915748:49 Temperature 97 f Pulse 85 /min Comments: [...] kg/m2 Body Surface Area Calculated 2.09 m2 81-Jca-414392:16 Temperature 96.4 f Comments: Method: Oral Pulse [...] kg/m2 Body Surface Area Calculated 2.09 m2 0-Hcg-087600:24 Temperature 96.5 f Comments: Method: Oral Pulse [...] 0.00 cm Results Date Description Value Details 51-Ecy-513854:28 Metabolic Panel, Comprehensive Comments: Jan 2017; PATIENT NOT FASTINGPERFORMED BY: [facility] CenterNzwxil6042 [facility] [id number] (05545) ALT (SGPT) 14 [iU]/L (Normal) Range: 0-32 [...] Glucose, Serum 77 mg/dL (Normal) Range: 65-99 91-Qxg-863973:28 CALCIFEDIOL (41936) Comments: Jan 2017; PATIENT NOT FASTINGPERFORMED BY: [employer] Dndjju9340 [employer] [place] [id number] Vitamin D, 25-Hydroxy 33.0 ng/mL (Normal) Range: 30.0-100.0 Comments: Vitamin D deficiency has been defined by the [place] ofMartin Memorial Hospitalcine and an Endocrine Society practice guideline as alevel of serum 25-OH vitamin D less than 20 ng/mL (1,2).The Endocrine Society went on to further define vitamin Dinsufficiency as a level between 21 and 29 ng/mL (2).1. IOM ([place] of Medicine). 2010. Dietary reference intakes for calcium and D. [place]: The National Academies Press.2. Miki MF, Jamie LUND, Cata VEGA, et al. Evaluation, treatment, and prevention of vitamin D deficiency: an Endocrine Society clinical practice guideline. JCEM. 2010; 96(7):1911-30. 22-Dgs-548319:21 C-REACTIVE PROTEIN (62519) Comments: PATIENT NOT FASTINGPERFORMED BY: CB [facility] Amulks[address] [employer] [id number] C-Reactive Protein, Quant 6.7 mg/L (Abnormal) Range: 0.0-4.9 85-Wmc-147032:21 SED RATE ERYTHROCYTE (59605) Comments: PATIENT NOT FASTINGPERFORMED BY: CB [facility] Yfcohd9969 [address] [place] [id number] Sedimentation Rate-Westergren 5 mm/h (Normal) Range: 0-40 64-Mca-745345:21 METABOLIC PANEL, COMPREHENSIVE Comments: PATIENT NOT FASTINGPERFORMED BY: BooklrH[facility]ettstown [facility] CenterOwydqh1286 [facility] [id number] (25701) ALT (SGPT) 12 [iU]/L (Normal) Range: 0-32 [...] Glucose, Serum 69 mg/dL (Normal) Range: 65-99 13-Jnd-814487:21 CBC, PLATELETS & AUT DIFF Comments: PATIENT NOT FASTINGPERFORMED BY: BooklrH[facility] CenterSkdqpz0814 [facility] [id number] (66203) Immature Grans (Abs) 0.0 {x10E3/uL} (Normal) Range: [...] 3.77-5.28 WBC 6.2 {x10E3/uL} (Normal) Range: 3.4-10.8 :08 T4, FREE (THYROXINE) (41493) Comments: PATIENT NOT FASTINGPERFORMED BY: [employer] Deamyb4468 [facility] [id number] T4,Free(Direct) 1.31 ng/dL (Normal) Range: 0.82-1.77 02-Nov-20169:08 T3, FREE (TRIDOTHYRONINE) (26372) Comments: PATIENT NOT FASTINGPERFORMED BY: [employer] Btwmyp6693 [facility] [id number] Triiodothyronine,Free,Serum 2.2 pg/mL (Normal) Range: 2.0-4.4 02-Nov-20169:08 TSH (14315) Comments: PATIENT NOT FASTINGPERFORMED BY: [employer] Tucmgp4593 [facility] [id number] TSH 3.520 {uIU/mL} (Normal) Range: 0.450-4.500 94-Gug-888157:28 Metabolic Panel, Comprehensive Comments: PATIENT NOT FASTINGPERFORMED BY: [facility]6370 [facility] [id number] (31664) ALT (SGPT) 15 [iU]/L (Normal) Range: 0-32 [...] Glucose, Serum 93 mg/dL (Normal) Range: 65-99 07-Awz-168205:28 CBC, Platelets & Auto Diff Comments: PATIENT NOT FASTINGPERFORMED BY: [facility]6370 [facility] [id number] (34922) Immature Grans (Abs) 0.0 {x10E3/uL} (Normal) Range: [...] 3.77-5.28 WBC 6.8 {x10E3/uL} (Normal) Range: 3.4-10.8 79-Fds-978037:28 TSH (54662) Comments: PATIENT NOT FASTINGPERFORMED BY: [facility] Nyqpzx7742 [facility] [id number] TSH 0.034 {uIU/mL} (Abnormal) Range: 0.450-4.500 10-Flj-382580:40 CBC W/Diff, Automated Comments: [facility] [address] [place], [place], [address] Absolute Lymph 2.31 {X10_3/ul} (Normal) Range: 0.83-4.51 [...] 4.2-5.4 WBC 8.7 K/mm3 (Normal) Range: 4.4-11.0 77-Zvx-436441:40 Comprehensive Metabolic Profil Comments: [facility] [address] [place], [place], [id number] GAP 7 (Normal) Range: 5-15 CO2 29.0 [...] 7-18 GLU 106 mg/dL (Normal) Range: 70-110 00-Pmd-792519:07 URINE BECKY CULTURE-IDENTIFICATN Comments: PATIENT NOT FASTINGPERFORMED BY: [employer] [place] [id number] ([id number]) Result 1 CNSNSS (Abnormal) Comments: Coagulase negative [...] S Urine Final report Culture,Comprehens (Abnormal) svetlana 12-Hwx-639902:07 Metabolic Panel, Comprehensive Comments: PATIENT NOT FASTINGPERFORMED BY: [employer] Rzpruj4526 [employer] [facility] [employer] [facility] [id number] (56808) ALT (SGPT) 14 [iU]/L (Normal) Range: 0-32 [...] Glucose, Serum 76 mg/dL (Normal) Range: 65-99 91-Uku-495228:07 CBC, Platelets & Auto Comments: PATIENT NOT FASTINGPERFORMED BY: [facility]CoH[facility] CenterVhgvef8585 [facility] [id number] Information: [id number], 412039 Diff (30835) Immature Grans (Abs) 0.0 {x10E3/uL} (Normal) Range: [...] 3.77-5.28 WBC 8.1 {x10E3/uL} (Normal) Range: 3.4-10.8 55-Ujd-522002:07 PT (Prothrobim Time) (29114) Comments: PATIENT NOT FASTINGPERFORMED BY: [facility]CoH[facility] CenterJdxazr0953 [facility] [id number] Prothrombin Time 10.4 {sec} (Normal) Range: 9.1-12.0 INR 1.0 (Normal) Range: 0.8-1.2 Comments: Reference interval is for non-anticoagulated patients. . Suggested INR therapeutic range for Vitamin K anta gonist therapy: Standard Dose (moderate intensity therapeutic range): 2.0 - 3.0 Higher intensity therapeutic range 2.5 - 3.5 32-Mjh-07799:53 Urinalysis, Office (64522) UA - LEUKOCYTE ESTERASE Small (Normal) UA - NITRITE Negative (Normal) URINE UROBILINGN IVAN TIMED Normal mg/dL (Normal) UA - PROTEIN Negative mg/dL (Normal) UA - PH 5.0 (Normal) Comments: 5.5 UA - BLOOD Non Hemolyzed Trace (Normal) UA - SPECIFIC GRAVITY 1.005 (Normal) UA - KETONES Negative mg/dL (Normal) UA - BILIRUBIN Negative (Normal) UA - GLUCOSE Negative (Normal) 47-Lnp-028162:17 Urinalysis, Office (36757) UA - LEUKOCYTE ESTERASE Large (Normal) UA - NITRITE Negative (Normal) URINE UROBILINGN IVAN TIMED Normal mg/dL (Normal) UA - PROTEIN 100 mg/dL (Normal) UA - PH 6 (Abnormal) UA - BLOOD Hemolyzed Large (Normal) UA - SPECIFIC GRAVITY 1.025 (Normal) UA - KETONES Negative mg/dL (Normal) UA - BILIRUBIN Negative (Normal) UA - GLUCOSE Negative (Normal) 31-May-2015 EGD ([facility]) See Note (Normal) Comments: [facility] [address] [place], [place], [address] 12:32 Comments: Patient: MAURICIO SERRANO : 1945 (69/F) Acct Num: [id number] Phys: Eugenio Laguna Unit Num: [id number] Loc: LABSPEC Specimen: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 SCAN AXIAL SKELETON On: 02-Nov-2016 Intent ([id number])By: Serena Quiñonez CNP, CNP, Mary E Radiology - ChestBy: Olamide MARTINEZ, On: 17-Aug-2016 Intent Serena Leblanc CNP Comments: Doretha Quiñonez Solu -Medrol Injection, 125 mg On: 17-Aug-2016 Intent ([id number])By: Serena Quiñonez CNP, CNP, Mary E Solu -Medrol Injection, 125 mg On: 17-Aug-2016 Intent ([id number])By: Seerna Quiñonez CNP Comments: Lot:[id number]:11/[id number]:125mgRoute: Site:r hipGiven By:JOLIVE signed Serena Quiñonez CNP Aerosol Treatment ([id number])By: On: 17-Aug-2016 Intent Serena Quiñonez CNP, CNP, Mary E MAMMOGRAM, SCREENING, BOTH BREAST On: 13-Jul-2016 Intent ([id number])By: Olamide MICHELLESerena CNP, Mary E DEXA SCAN AXIAL SKELETON On: 13-Jul-2016 Intent ([id number])By: Jonathanmichelle MARTINEZSerena CNP, Mary E CT - Abdomen & Pelvis Stone On: 29-Jun-2015 Intent ProtocolBy: Serena Quiñonez CNP, CNP, Mary E CT - Abdomen & PelvisBy: Nancy On: 16-Feb-[address] - AbdomenBy: Jonathanmichelle MARTINEZ Serena Mcmanus On: 15-Feb-[address] - Chest (IV Contrast On: 02-Nov-2014 Intent Needed)By: Brandishanamichelle MARTINEZ Serena Mcmanus Comments: STAT- PE Protocol Serena Quiñonez CNP Holter Monitor 24 hrsBy: Branditim On: 02-Nov-2014 Intent Serena MARTINEZ CNP, Mary E Echo CompleteBy: Jonathanmichelle MARTINEZSerena On: 02-Nov-2014 Intent E Serena Quiñonez CNP EKG ([id number])By: Brandishanamichelle MARTINEZ Serena Mcmanus On: 02-Nov-2014 Intent Olamide MICHELLE Serena Mcmanus Comments: sinus rhythm similar to 09-28-2011 Radiology - Toe(s) - LeftBy: On: 15-Mar-2014 Intent Serena Quiñonez CNP, CNP, Mary E CT - NeckBy: Jonathanmichelle MARTINEZ Serena Mcmanus On: 15-Feb-2014 Intent Olamide MICHELLESerena Comments: cervical spine CT - NeckBy: Micki Cruz MD On: 15-Feb-2014 Intent Comments: STAT STAT STAT STATCALL WET READATTN TO ODONTOID Radiology - Cervical SpineBy: On: 11-Feb-2014 Intent Olamide MICHELLESerena CNP, Mary Comments: send resuts to Kyle Quiñonez and Dr. Coughlin (pain specialist) E Venous Doppler - RightBy: Olamide On: 09-Oct-2013 Intent Serena MARTINEZ CNP, Mary E Radiology - Knee - RightBy: Ciesa On: 09-Oct-2013 Intent Serena MARTINEZ CNP, Mary E Nuclear Medicine - HIDA w/CPKBy: On: 28-Aug-2013 Intent Catalina Daly DO Ultrasound - GallbladderBy: On: 26-Aug-2013 Intent Jayson Daly DOeen Eprescribed prescriptions On: 26-Aug-2013 Intent ([id number])By: Catalina Daly DO Eprescribed prescriptions On: 06-Aug-2013 Intent ([id number])By: Nancy GIPSON, Micki Aerosol Treatment ([id number])By: On: 29-Sep-2012 Intent Serena Quiñonez CNP, CNP, Mary E Toradol Injection, 30 mg On: 30-Apr-2012 Intent ([id number])By: Serena Quiñonez CNP, CNP, Mary E ELECTROCARDIOGRAM, COMPLETE (ECG) On: 28-Sep-2011 Intent ([id number])By: Serena Quiñonez CNP Comments: sinus rhythm Serena Quiñonez CNP Bio Z ([id number])By: Serena Quiñonez CNP On: 28-Sep-2011 Intent E Serena Quiñonez CNP Comments: with in normal PHYSICAL THERAPY EVALUATION On: 02-Jan-2011 Intent ([id number])By: Serena Quiñonez CNP, CNP, Mary E MRI - Knee(s) - LeftBy: Ciesmichelle On: 02-Jan-2011 Intent Serena MARTINEZ CNP, Mary E Nuclear Stress Test/Stress On: 21-Aug-2010 Intent SPECT/AdenosineBy: Serena Quiñonez CNP, CNP, Mary E EKG ([id number])By: Serena Quiñonez CNP On: 21-Aug-2010 Intent Serena Quiñonez CNP PHYSICAL THERAPY EVALUATION On: 08-Aug-2010 Intent ([id number])By: Serena Quiñonez CNP, CNP, Mary E Radiology - Knee - LeftBy: Ciesa On: 08-Aug-2010 Intent Serena MARTINEZ CNP, Mary E Radiology - Knee - Left - Weight On: 08-Aug-2010 Intent BearingBy: Serena Quiñonez CNP, CNP, Mary E CT - Chest (IV Contrast On: 06-Dec-2009 Intent Needed)By: Olamide MARTINEZ Serena Mcmanus Comments: stat Olamide MARTINEZ Bren Doppler Ultrasound OtherBy: Olamide On: 05-Dec-2009 Intent Serena MARTINEZ Brandishanamichelle MARTINEZSerena Comments: Rt knee and lower extremity with history of PE Please do today Aerosol Treatment ([id number])By: On: 05-Dec-2009 Intent Olamide MARTINEZSerena Olamide MARTINEZ Serena Mcmanus Pulse Oximetry ([id number])By: Olamide On: 05-Dec-2009 Intent Serena MARTINEZ Olamide MARTINEZ Serena Mcmanus CT - Brain/HeadBy: Olamide MARTINEZ, On: 25-Aug-2009 Intent Serena Mcmanus Olamide MARTINEZ Serena Mcmanus DESTRUCT B9 LESION, 1-14 On: 20-Mar-2009 Intent ([id number])By: Micki Cruz MD Doppler Ultrasound OtherBy: Olamide On: 18-Oct-2008 Intent Serena MARTINEZ Olamied MARTINEZ Bren CT - ChestBy: Micki Cruz MD On: 22-Mar-2008 Intent Comments: copyy of both ct to Dr. yeyo jules in [place] and Dr. meehan CT - Abdomen & PelvisBy: Nancy On: 22-Mar-2008 Intent Micki GIPSON Pulse Oximetry ([id number])By: On: 22-Mar-2008 Intent RAMA Webster Pulse Oximetry ([id number])By: On: 16-Mar-2008 Intent RAMA Webster Echo CompleteBy: Micki Cruz MD On: 11-Mar-2008 Intent Kyle Vancoymcin 500mg/premixedBy: On: 11-Mar-2008 Intent Micki Cruz MD Pulse Oximetry ([id number])By: On: 02-Mar-2008 Intent RAMA Webster Pulse Oximetry ([id number])By: Olamide On: 26-Feb-2008 Intent Serena MARTINEZ Brandishanamichelle MARTINEZ Bren CT - Chest (IV Contrast On: 26-Feb-2008 Intent Needed)By: Serena Quiñonez CNP Comments: PE protocolstatSTAT CT shows PE to be admitted Serena Quiñonez CNP Solu -Medrol Injection, 125 mg On: 26-Feb-2008 Intent ([id number])By: Serena Quiñonez CNP Comments: waiver signedAmt: 2mlLot: [id number]: 09/2010Route: IMSite: right hipTolerated: wellGiven By: RADAMES Ta CNP, Mary E Inhaler Demonstration ([id number])By: On: 26-Feb-2008 Intent Serena Quiñonez CNP, CNP, Mary E Aerosol Treatment ([id number])By: On: 26-Feb-2008 Intent Serena Quiñonez CNP, CNP, Mary Comments: done E Venous Doppler - RightBy: Nancy On: 27-Nov-2007 Intent Micki GIPSON Comments: leg 2 weeks DXA, BONE DENSITY, AXIAL SKELETON On: 06-Nov-2007 Intent ([id number])By: Micki Cruz MD Comments: estrogen deficient MAMMOGRAM, SCREENING, BOTH On: 06-Nov-2007 Intent BREASTS ([id number])By: Micki Cruz MD Pulse Oximetry ([id number])By: On: 06-Nov-2007 Intent RAMA Webster Pulse Oximetry ([id number])By: Alex On: 24-Sep-2007 Intent Dana Comments: 98% Aerosol Treatment ([id number])By: On: 05-Aug-2007 Intent Serena Quiñonez CNP, CNP, Mary E Spirometry ([id number])By: Nancy On: 27-May-[address] [...] TSH : DISCONTINUED - T4, FREE (THYROXINE) ([id number]) Indication: Abnormal TSH Abnormal TSH : DISCONTINUED - T3, FREE (TRIDOTHYRONINE) ([id number]) Indication: Abnormal TSH Abnormal TSH : DISCONTINUED - TSH (THYROID STIMULATING HORMONE) ([id number]) Indication: Abnormal TSH Encounter for screening for [...] NOS : DISCONTINUED - HEPATIC FUNCTION PANEL ([id number]) Indication: FUNGUS, NOS Hypertension : DISCONTINUED - TSH ([id number]) Indication: Hypertension GERD (gastroesophageal reflux disease) : [...] Indication: Epigastric Pain Encounters Annotation/Addendum On: 08-Apr-2018 11:24 Encounter Diagnosis: Unspecified Diagnosis End: 08-Apr-2018 11:29 [facility] Annotation/Addendum On: 08-Apr-2018 6:13 Encounter Diagnosis: Unspecified [...] recently getting worse-full End: 30-Dec-2017 11:33 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 He is not doing well and pt [...] The patient does have durable power of real estate associate attorney and living will. The patient has [...] For Left Knee replacement Dr. Hernandez in [place] Aug 09, 2015. When pt had Rt [...] (698.9) [facility] Office Visit On: 26-Sep-2013 11:18 Encounter Diagnosis: Lesion-Unknown behavior (238.2) End: [...] 10:45 [facility] Office Visit On: 8-Feb-2011 10:07 Encounter Reason: Knee Pain - The [...] mcmanus has been getting her vicoden from [employer] - so encoruaged her to discuss with [...] (obesity ). 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
--- OUTSIDE RECORDS SUMMARY | 2018-07-24 21:14 | XMS RPT_ITS | Continuity of Care Document ---
:1945 External Reference #:[id number] Author Organization [facility] Address [address] [facility] [address] [place] [address] Phone Care Team Providers Name Role Phone Serena Quiñonez CNP Unavailable Anette Connolly Unavailable Michael Duncan Unavailable Sienna ELLINGTON Logan Gómez Unavailable Slarb GEM CARVER, Cheryle Unavailable Unavailable Long GEM CARVER, Kalie L Unavailable Unavailable Unavailable Unavailable Problems [...] 715.90) Comments: stable on gabapentin seen at [facility] arthritis neck arthritis and knee pain , has seen Dr. Coughlin for neck pain for injectionwas seen at [facility] arthritis given gabapentinwas taking melox icam daily lead to gastric ulcer stopped meloxicam Status: Active Osteopenia (M85.80, 733.90) Status: Active Postmenopausal (Renamed from Postmenopausal status) (Z78.0, V49.81) Status: Active Pregnancies () Comments: 5 Status: Active Right leg swelling (M79.89, 729.81) Comments: elevate and support hose Status: Active Skin infection (L08.9, 686.9) Comments: mouth Status: Active Sore throat (J02.9, 462) Comments: [...] Slarb Cheryle CRUM Start : 16-Nov-2016 Active Doxycycline Hyclate 100 MG Oral Capsule 1 (one) Capsule BID for 5 days Quantity: 10 {Capsule} Refills: 0 Ordered:09-Apr-2018 Olamide MARTINEZ, Serena Patton CNP, Serena Mcmanus Start : 09-Apr-2018 Active LORazepam 1 MG Oral Tablet 1 (one) Tablet daily prn ONLY for 0 days Quantity: 30 {Tablet} Refills: 0 Ordered:08-Apr-2018 Olamide MARTINEZ, Serena Patton CNP, Serena Mcmanus Start : 08-Apr-2018 Active Comments:OARRS yrpbnakqP18.9f43.21Thirty Losartan Potassium 50 MG Oral Tablet 1 [...] Quantity: 2 {Tablet} Refills: 1 Ordered:10-Jan-2018 Long GEM CARVERTerence Pinedaraquel Carias Start : 10-Jan-2018 Active ALEVE, 220MG (Oral [...] days Quantity: 20 {Tablet} Refills: 0 Ordered:09-Jun-2014 Olamide MARTINEZ, Serena Patton CNP, Serena Mcmanus Start : 09-Jun-2014 End : 19-Jun-2014 Inactive CHONDROITIN SULFATE-VIT C-MN, 400-60-2.5MG (Oral Capsule) 1 (one) Capsule daily for 0 days Refills: 0 Ordered:17-Feb-2009 RAMA Webtser Start : 17-Feb-2009 End : 17-Mar-2009 Inactive CIPROFLOXACIN HCL, 500MG (Oral Tablet) 1 (one) Tablet bid for 7 days Quantity: 14 {Tablet} Refills: 0 Ordered:27-Jun-2015 Olamide MARTINEZ, Serena Patton CNP, Serena Mcmanus Start : 27-Jun-2015 End : 04-Jul-2015 Inactive CITRACAL/VITAMIN D, 988-039HP-PGYO (Oral Tablet) 2 QD for 0 days Refills: 0 Ordered:03-Oct-2011 Abby Jones LPN End : 03-Oct-2011 Inactive CLARINEX REDITABS, 5MG (Oral Tablet Dispersible) 1 (one) Tablet Disperse daily for 0 days Quantity: 5 {Tablet_Disperse} Refills: 0 Ordered:06-Jul-2010 RAMA Webster Start : 05-Dec-2009 End : 06-Jul-2010 Inactive CORTISPORIN, 3.5-29009-3 (Otic Solution) 4 Solution Solution tid for 0 days Quantity: 1 {Bottle} Refills: 0 Ordered:16-Oct-2013 Robert RADAMESAbby Start : 11-Aug-2013 End : 16-Oct-2013 Inactive Cymbalta 30 MG Oral Capsule Delayed Release Particles 1 (one) Capsule Capsule PO Daily for 30 days Quantity: 30 {Capsule} Refills: 0 Ordered:30-Dec-2017 Lupe CRUMCheryle Start : 30-Dec-2017 End : 29-Jan-2018 Inactive Detrol LA 2 MG Oral Capsule Extended Release 24 Hour 2 (two) Capsule ER 24HR qd for 30 days Quantity: 60 {Capsule} Refills: 0 Ordered:01-Oct-2017 Olamide MARTINEZ, Serena Cabanmichelle MARTINEZ, Bren Start : 01-Oct-2017 End : 31-Oct-2017 Inactive DETROL LA, 4MG (Oral Capsule Extended Release 24 Hour) 1 Capsule ER 24HR qd for 0 days Quantity: 30 {Capsule_ER_24HR} Refills: 3 Ordered:26-Mar-2013 RAMA Webster Start : 18-Mar-2012 End : 26-Mar-2013 Inactive DEXILANT, 30MG (Oral Capsule Delayed Release) 1 (one) Capsule DR Capsule DR daily for 60 days Quantity: 30 {Capsule} Refills: 0 Ordered:14-Oct-2015 Brandishanaa CODING CONSULTANT, Serena Patton CODING CONSULTANT, Bren Start : 14-Oct-2015 End : 13-Dec-2015 Inactive DOXYCYCLINE HYCLATE, 100MG (Oral Tablet Delayed Release) [address] bid for 7 days Quantity: 14 {Tablet_DR} Refills: 0 Ordered:30-Mar-2013 Brandishanaa CODING CONSULTANT, Serena Cabana CODING CONSULTANT, Bren Start : 30-Mar-2013 End : 06-Apr-2013 Inactive [...] days Refills: 0 Ordered:15-Aug-2015 Olamide MARTINEZ, Serena Patton CNP, Serena Mcmanus Start : 27-Jun-2015 End : 27-Jul-2015 Inactive Comments:Medication taken as needed. GUAIATUSSIN AC, 100-10MG/5ML (Oral Syrup) 1 Syrup 1 tsp qhs as needed for 0 days Quantity: 6 {Ounce(s)} Refills: 0 Ordered:03-Nov-2012 Millie Zimmer Start : 29-Sep-2012 End : 03-Nov-2012 Inactive Comments:Medication taken as needed. HYDROCODONE-ACETAMINOPHEN, 5-325MG (Oral Tablet) 1 (one) Tablet q hs for 30 days Quantity: 30 {Tablet} Refills: 0 Ordered:18-Nov-2015 Olamide MARTINEZ, Serena Patton CNP, Serena Mcmanus Start : 14-Oct-2015 End : 13-Nov-2015 Inactive LEVAQUIN, 500MG (Oral Tablet) 1 Tablet daily for 10 days Quantity: 10 {Tablet} Refills: 0 Ordered:01-Oct-2012 Olamide MARTINEZ, Serena Patton CNP Serena Mcmanus Start : 01-Oct-2012 End : 11-Oct-2012 Inactive Comments:void after 30 days LEXAPRO, 10MG (Oral Tablet) 1 Tablet QD for 0 days Quantity: 10 {Tablet} Refills: 0 Ordered:09-Jul-2011 RAMA Webster Start : 09-Jul-2011 End : 09-Jul-2011 Inactive LISINOPRIL, 10MG (Oral Tablet) 1 (one) Tablet(s) daily for 0 days Quantity: 30 {Tablet} Refills: 6 Ordered:28-Sep-2011 Olamide MARTINEZ, Serena Patton CNP Serena Mcmanus Start : 10-May-2010 End : 28-Sep-2011 Inactive MOBIC, 7.5MG (Oral Tablet) 1 Tablet QD for 0 days Quantity: 14 {Tablet} Refills: 0 Ordered:15-Sep-2012 Sebastien CRUMTerenceraquel Carias Start : 15-Sep-2012 End : 15-Sep-2012 Inactive NABUMETONE, 750MG (Oral Tablet) 2 QD for 0 days Refills: 0 Ordered:17-Mar-2009 RAMA Webster End : 17-Mar-2009 Inactive NAPROSYN, 500MG (Oral Tablet) 1 Tablet daily once for 0 days Quantity: 30 {Tablet} Refills: 0 Ordered:28-Sep-2011 Olamide MARTINEZ, Serena Cabanmichelle CODING CONSULTANT, Serena Mcmanus Start : 08-Aug-2010 End : 28-Sep-2011 Inactive NYSTOP, 980894FYRE/GM (External Powder) Powder take as directed for [...] daily for 7 days Refills: 0 Ordered:15-Jul-2012 Olamide MARTINEZ Serena SHERIEdmitriymichelle MARTINEZ, Serena Mcmanus Start : 20-Jun-2012 End : [...] hrs for 30 days Refills: 0 Ordered:18-Nov-2015 Brandishanamichelle MARTINEZ, [facility] Start : 14-Oct-2015 End : 13-Nov-2015 Inactive [...] 30 {Capsule} Refills: 6 Ordered:10-Nov-2008 Brandishanamichelle MARTINEZ, [facility]rena [facility], Bren Start : 10-Nov-2008 End : 10-Nov-2008 Discontinued [...] days Quantity: 30 {Tablet} Refills: 5 Ordered:18-Oct-2008 Serena Quiñonez CNP, CNP Bren Start : 18-Oct-2008 End : 18-Oct-2008 Discontinued Comments:disp.#100 with3 refills COUMADIN, 2MG (Oral Tablet) 11/2 Tablet QD for 0 days Quantity: 30 {Tablet} Refills: 5 Ordered:11-Nov-2008 Serena Quiñonez CNP, CNP Bren Start : 11-Nov-2008 End : 11-Nov-2008 Discontinued Dexilant 60 MG Oral Capsule Delayed Release [address] Capsule DR daily for 0 days Quantity: 21 {Capsule} Refills: 0 Ordered:02-Nov-2016 Cheryle Andrade LPN Start : 13-Jul-2016 End : 02-Nov-2016 Discontinued FLUOXETINE HCL, 20MG (Oral Capsule) 1 [...] days Quantity: 30 {Tablet} Refills: 3 Ordered:02-Mar-2015 Bi Andrade LPNa Start : 21-Feb-2015 End : 02-Mar-2015 Discontinued Comments:with food MUCINEX ALLERGY, 180MG (Oral Tablet) 1 (one) Tablet daily for 0 days Quantity: 30 {Tablet} Refills: 0 Ordered:15-Feb-2015 Bi Andrade LPNa Start : 15-Dec-2014 End : 15-Feb-2015 Discontinued MULTIVITAMIN (PO Chew Tab) 1 QD for 0 days Refills: 0 Ordered:20-Jun-2012 Abby Jones LPN End : 20-Jun-2012 Discontinued Comments:This order discontinued per [facility]. OXYCODONE HCL, 5MG (Oral Tablet) 1 (one) Tablet q8hrs prn for 0 days Quantity: 30 {Tablet} Refills: 0 Ordered:27-Jun-2015 Bi Andrade LPNa Start : 09-Mar-2015 End : 27-Jun-2015 Discontinued PredniSONE 10 MG Oral Tablet 1 (one) Tablet 1 bid x 3 days, 1 daily x 3 days, 1/2 x3 days for 0 days Quantity: 12 {Tablet} Refills: 0 Ordered:02-Nov-2016 Lupe CRUM Cheryle Start : 17-Aug-2016 End : 02-Nov-2016 Discontinued Comments:with food PRILOSEC, 20MG (Oral Capsule Delayed Release) 1 (one) Capsule DR daily for 0 days Quantity: 30 {Capsule} Refills: 0 Ordered:02-Mar-2015 Lupe CRUM Cheryle Start : 15-Feb-2015 End : 02-Mar-2015 Discontinued ProAir HFA 108 (90 Base) MCG/ACT Inhalation Aerosol Solution 2 (two) Puff(s) tid prn for 0 days Quantity: 1 {Inhaler} Refills: 0 Ordered:02-Nov-2016 Lupe CRUM Cheryle Start : 17-Aug-2016 End : 02-Nov-2016 Discontinued PROZAC, 20MG (Oral Capsule) 1 Capsule daily for 30 days Quantity: 30 {Capsule} Refills: 6 Ordered:15-Dec-2014 Slarb RADAMES, Cheryle Start : 20-Feb-2013 End : 15-Dec-2014 Discontinued TESSALON PERLES, 100MG (Oral Capsule) 1 (one) Capsule tid for 0 days Quantity: 30 {Capsule} Refills: 0 Ordered:11-Aug-2007 Dana Johnson Start : 11-Aug-2007 End : 06-Nov-2007 Discontinued TOPICORT, 0.25% (External Cream) 1 (one) Cream bid for 0 days Quantity: 1 {Tube} Refills: 0 Ordered:02-Nov-2014 Slarb GEM CARVER, Cheryle Start : 30-Jun-2014 End : 02-Nov-2014 Discontinued TYLENOL WITH CODEINE #3, 300-30MG (Oral Tablet) 1 (one) Tablet q6-8 hrs prn for 0 days Quantity: 30 {Tablet} Refills: 0 Ordered:27-Jun-2015 Slarb GEM CARVER, Cheryle Start : 11-Mar-2015 End : 27-Jun-2015 Discontinued TYLENOL, 325MG (Oral Tablet) 1 PRN for 0 days Refills: 0 Ordered:27-Jun-2015 Slarb GEM CARVER, Cheryle Start : 02-Mar-2015 End : 27-Jun-2015 [...] (M79.609, 729.5) Status: Inactive as of 24-May-2014 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 Imaging Services [address] [place] [address] Verdana 4d Dexa Bone Density Study () MR#: [id number] Acct: [id number] Name: EVENS SERRANO Rep #: [id number] : 1945 F 71 From: Michael Noland MD PCP: Serena Quiñonez Status: REG CLI Study: Dexa Bone Density Study (HP) Date of Exam: 11/13/16 Exam# [id number] Ordering Dr: Kyle Quiñonez STUDY: DUAL ENERGY [...] Michael Noland MD at 7:57 EDT Tel [phone], Service support , CC: Serena Quiñonez Bone Char Operator: Signed 13-Nov-2016 SCREENING MAMM (CAD), BILAT Result: Comments: See Note; NOTES: [facility] Imaging Services [address] [place] [address] Verdana 4d SCREENING MAMM (CAD), BILAT MR#: [id number] Acct: [id number] Name: TRINI SERRANO AN D Rep #: [id number] : 1945 F 71 From: Michael Noland MD PCP: Serena Quiñonez Status: REG CLI Study: SCREENING MAMM (CAD), BILAT Date of Exam: 11/13/16 Exam# [id number] Ordering Dr: Yudith Quiñonez MAMMOGRAPHY - BILATERAL SCREENING REASON FOR EXAM: [...] y biopsy of a clinically suspicious abnormality. [id number] Electronically Signed: Michael Noland MD at 8:11 EDT Tel [phone], Service support , CC: Serena Quiñonez Bone Char Operator: Signed 17-Aug-2016 Chest PA and Lateral Result: Comments: See Note; NOTES: [facility] Imaging Services [address] [place] [address] Verdana 4d Chest PA and Lateral MR#: [id number] Acct: [id number] Name: MAURICIO SERRANO p #: [id number] : 1945 F 71 From: Michael Noland MD PCP: Micki Cruz MD Status: REG CLI Study: Chest PA and Lateral Date of Exam: 08/17/16 Exam# [id number] Ordering Dr: Serena Quiñonez STUDY: X-RAY CHEST [...] Michael Noland MD at 14:44 EST Tel [phone], Service support [phone], CC: Serena Quiñonez; Micki Cruz MD Bone Char Operator: Signed 03-Oct-2015 PT D/C Summary (1) Result: Comments: See Note; NOTES: [facility] [address] [place] [address] Fax REHABILITATION NAVJOT DISCHARGE SUMMARY MR#: [id number] Acct: [id number] Name: MAURICIO SERRANO Rep #: [id number] : 1945 70 From: Bolivar Newell DPT, OCS, CSCS Referring Dr.: OUT OF [facility] DOCTOR Status: REG RCR Eval Date: [...] please feel free to call me at [phone]. Thank you for the referral of this patient. Sincerely, Bolivar Newell <Electronically signed by Bolivar Newell DPT, OCS, CSCS> 10/14 0646 CC: SARATH HERNANDEZ; Micki Cruz MD; OUT OF TOWN DOCTOR EBG Signed 09-Sep-2015 Re-Evaluation - PT (1) Result: Comments: See Note; NOTES: [facility] [address] [facility] [place] [address] Fax REEVALUATION / ME DICARE RECERTIFICATION [facility] 4d PHYSICAL THERAPY MR#: [id number] Acct: [id number] Name: MAURICIO SERRANO Rep #: [id number] : 1945 70 From: Bolivar Newell DPT, OCS, CSCS Referring Dr.: T [facility] DOCTOR Status: REG R Insurance: [employer] Out of Town Doctor, SARATH HERNANDEZ It has been my [...] do not hesitate to contact me at [phone] by phone or if you have questions [...] Discharge Instruction Result: Comments: See Note; NOTES: [facility] Medical Records Department [address] [facility] [place] [address] Discharge Instruction 08/14/152021 MR#: [id number] Acct: [id number] Name: MAURICIO SERRANO Rep #: [id number] : 1945 70 From: Logan Keen MD PCP: Micki Cruz MD Status: DEP ER ED Disposition - Plan for ED Patient: Chief Complaint: Lower Extremity Injury Instructions: ED Dyspnea What to do if you have Problems For any increased pain, shortness of breath, bleeding, nausea or vomiting, chest pain, or any unexpected problems, contact your do ctor. Call [facility] ([phone]) or report to the closest Emergency Room. Call 911 if necessary. 08/18/15 0746 <Electronically signed by Logan Keen MD> Date ____ Logan Keen MD Cosigner Signature (If Indicated): Date CC: Micki Cruz MD 18-Aug-2015 Emergency Department Summary Result: Comments: See Note; NOTES: [facility] Medical Records Department [address] [place] [address] Emergency Department Summary MR#: [id number] Acct: [id number] Name: MAURICIO SERRANO Rep #: [id number] : 1945 70 From: Logan Keen MD PCP: Micki Cruz MD Status: DEP ER DATE OF SERVICE: 08/14/2015 CHIEF COMPLAINT: Shortness of breath, leg swelling. HISTORY OF PRESENT ILLNESS: A 70-year-old female who is 5 days status post left total knee repair done at [place], presents with shortness of breath and leg [...] Discharge. Logan Keen MD T: NTS JOB: [id number] 08/18/15 0746 <Electronically signed by Logan stovall MD> Date Logan Keen MD Cosigner Signature (If Indicated): Date CC: Micki christine MD Date Dictated: 08/14/152021 Date Transcribed: 08/14/152021 Bone Char Operator: Signed 14-Aug-2015 CTA Chest W/WO Contrast Result: Comments: See Note; NOTES: [facility] Imaging Services [address] [place] [address] [facility] 4d CTA Chest W/WO Contrast MR#: [id number] Acct: [id number] Name: MAURICIO DORAN Rep #: [id number] : 1945 F 70 From: Sandy Lundberg MD PCP: Micki Cruz MD Status: REG ER Study: CTA Chest W/WO Contrast Date of Exam: 08/14/15 Exam# [id number] Ordering Dr: Logan Velasquez MD STUDY: CTA [...] MD at 20:03 EST , Service support [phone], CC: Germaine Cruz MD; Logan Keen MD Bone Char Operator: Signed 12-Aug-2015 Inital Evaluation (1) - PT Result: Comments: See Note; NOTES: [facility] [address] [place], [place] [address] Fax REHABILITATION SE [facility] INITIAL EVALUATION MR#: [id number] Acct: [id number] Name: MAURICIO SERRANO Rep #: [id number] : 1945 70 From: Bolivar Newell DPT, OCS, CSCS Referring Dr.: OUT OF TOWN DOCTOR Status: REG RCR Insurance: [employer] Eval Date: Patient's Visit Information MAURICIO SERRANO is a 70 year old F, referred to Physical Therapy by Out [facility] Doctor, ERENDIRA HERNANDEZ, with a diagnosis of L Knee TKA. Date of Evaluation: 08/11/15 Physical Therapist: Bolivar Newell - Visit Plan Frequency: 3x /Week Duration: 4-6 Weeks - Subjective Subjective: 2 days ago had L TKA at [place] by Dr. Salazar. Had bone on bone in knee. R one was done 5 yrs ago. Went home last night and lives with . Walking with walker. Used it prior to surgery due to mm spasms but no rmall does not use it. Has two steps to enter and using Right leg and holds onto walker. Dressing self except for shoes but takes time. Has a verifier operator to get socks and pick things up [...] to be FAXED BACK to us at [phone] for Medicare purposes. Please let me know if there are questions or concerns regarding this plan of care. Physic carlo Signature: Date: <Electronically signed by Bolivar Newell DPT, OCS, CSCS> 08/12/15 0642 CC: SARATH HERNANDEZ; Micki shea MD; OUT OF TOWN DOCTOR EBG Signed For Medicare only, by signing this I certify the plan of care. Physicians Signature Date 12-Jul-2015 ELECTROCARDIOGRAM, COMPLETE (ECG) (64979) Comments: sinus rhythm within normal limits Result: [MEASUREMENTS ANALYSIS] Date of Test: 07/12/2015 13:50:06; Heart Rate: 72; [place] Interval: 146; QRS: 90; QT Interval: 392; Corrected QT Interval (QTc): 413; P Wave [place]: 47; QRS Wave [place]: 20; T Wave [place]: 51; Blood Pressure: 122/80 [ECG DIAGNOSTIC STATEMENTS] Date of Test: 07/12/2015 13:50:06; Summary: Sinus Rhythm WITHIN NORMAL LIMITS 30-Jun-2015 Abdomen/Pelvis without Cont Result: Comments: See Note; NOTES: [facility] Imaging Services [address] [place] [address] Verdana 4d Abdomen/Pelvis without Cont MR#: [id number] Acct: [id number] Name: MAURICIO SERRANO Rep #: [id number] : 1945 F 69 From: Bella Meade MD PCP: Micki Cruz MD Status: REG CLI Study: Abdomen/Pelvis without Cont Date of Exam: 06/30/15 Exam# [id number] Alexia england Dr: Serena Quiñonez STUDY: CT [...] at 10:49 EST Tel , Service support [phone], CC: Serena Quiñonez; Micki Cruz MD Bone Char Operator: Signed 17-Feb-2015 Abdomen/Pelvis WITH Contrast Result: Comments: See Note; NOTES: [facility] Imaging Services [address] [place] [address] CAT Scan Report MR#: [id number] Acct: [id number] Name: MAURICIO SERRANO Rep #: [id number] : 1945 F 69 From: Gerald Persaud DO PCP: Micki Cruz MD Status: REG CLI Study: Abdomen/Pelvis WITH Contrast Date of Exam: 02/17/15 Exam# [id number] Ordering Dr: Micki Cruz MD [facility] DY: CT ABDOMEN AND PELVIS WITH CONTRAST [...] at 19:10 EDT Tel , Service support [phone], CC: Micki Cruz MD Bone Char Operator: Signed 02-Nov-2014 Chest WITH Contrast Result: Comments: See Note; NOTES: [facility] Imaging Services [address] [place] [address] CAT Scan Report MR#: [id number] Acct: [id number] Name: MAURICIO SERRANO Rep #: [id number] : 1945 F 69 From: Michael Noland MD PCP: Micki Cruz MD Status: REG CLI Study: Chest WITH Contrast Date of Exam: 11/02/14 Exam# [id number] Ordering Dr: Serena Quiñonez STUDY: CTA CHEST [...] Michael Noland MD at 15:54 EDT Tel [phone], Service support [phone], CC: Serena Quiñonez; Micki Cruz MD Bone Char Operator: Signed 15-Mar-2014 Toe(s) Min 2 Views Result: Comments: See Note; NOTES: [facility] Imaging Services [address] [place] [address] Radiology Report MR#: [id number] Acct: [id number] Name: MAURICIO SERRANO Rep #: [id number] : 1945 F 68 From: Romaine Tafoya DO PCP: Micki Cruz MD Status: REG CLI Study: Toe(s) Min 2 Views Date of Exam: 03/15/14 Exam# [id number] Ordering Dr: Serena Quiñonez STUDY: X-RAY LEFT [...] Tafoya DO 2 at 16:54 EDT Tel [phone], Service support [phone], RAD/Toe(s) Min 2 Views IMPRESSION: No acute abnormality of the left second toe. Electron ically Signed: Romaine Tafoya DO at 16:54 EDT Tel [phone], Service support [phone], CC: Serena Quiñonez; Micki Cruz MD Bone Char Operator: Signed 15-Feb-2014 Spine Cervical without Contras Result: Comments: See Note; NOTES: [facility] Imaging Services [address] [place] [address] CAT Scan Report MR#: [id number] Acct: [id number] Name: MAURICIO SERRANO Rep #: [id number] : 1945 F 68 From: Michael Noland MD PCP: Micki Cruz MD Status: REG CLI Study: Spine Cervical without Contras Date of Exam: 02/15/14 Exam# [id number] Ordering Dr: Micki Cruz MD STUDY: CT [...] Noland MD at 14:08 E DT Tel [phone], Service support [phone], CC: Micki Cruz MD Bone Char Operator: Signed 11-Feb-2014 Cerv Spine 4 or 5 Views Result: Comments: See Note; NOTES: [facility] Imaging Services [address] [facility] [address] Radiology Report MR#: [id number] Acct: [id number] Name: MAURICIO SERRANO Rep #: [id number] : 1945 F 68 From: Julio Charles DO PCP: Micki Cruz MD Status: REG CLI Study: Cerv Spine 4 or 5 Views Date of Exam: 02/11/14 Exam# [id number] Ordering Dr: Serena Quiñonez STUDY: X-RAY - [...] Charles DO at 19 :48 EDT Tel [phone], Service support [phone], CC: Serena Cruz MD Bone Char Operator: Signed 09-Oct-2013 Knee 4 or More Views Result: Comments: See Note; NOTES: [facility] Imaging Services [address] [place] [address] Radiology Report MR#: [id number] Acct: [id number] Name: MAURICIO SERRANO Germaine Rep #: [id number] : 1945 F 68 From: Romaine Tafoya DO PCP: Micki Cruz MD Status: REG CLI Study: Knee 4 or More Views Date of Exam: 10/09/13 Exam# [id number] Ordering Dr: Serena Quiñonez STUDY: X-RAY - [...] Romaine Tafoya DO at 19:01 EDT Tel [phone], Service support [phone], CC: Serena Cruz MD Bone Char Operator: Signed 03-Sep-2013 Hepatobilliary Imaging Result: Comments: See Note; NOTES: [facility] Imaging Services [address] [place] [address] Nuclear Medicine Report MR#: [id number] Acct: [id number] Name: KRISTAQIMAURICIO D Rep #: [id number] : 1945 F 68 From: Gene Diallo DO PCP: Micki Cruz MD Status: REG CLI Study: Hepatobilliary Imaging Date of Exam: 09/03/13 Exam# [id number] Ordering Dr: Catalina Daly DO CLINICAL: 68-year-old [...] duct syndro me) to be low. (Breezy Alejandre et al, Journal of Nuclear Medicine 32:1695, 1991). Electronically Signed: Gene Diallo M.D. at 7:07 EST , Service support [phone], Fa x [phone] CLINICAL: 68-year-old female with reported history of [...] ic duct syndrome) to be low. (Breezy Alejandre et al, Journal of Nuclear Medicine 32:1695, 1991). Electronically Signed: Gene Diallo M.D. at 7:08 EST , Service support [phone], CC: Micki Cruz MD; Catalina Daly DO Bone Char Operator: Signed 27-Aug-2013 Gallbladder Result: Comments: See Note; NOTES: [facility] Imaging Services [address] [place] [address] Ultrasound Report MR#: [id number] Acct: [id number] Name: MAURICIO SERRANO Germaine Rep #: [id number] : 1945 F 68 From: Michael Noland MD PCP: Micki Cruz MD Status: REG CLI Study: Gallbladder Date of Exam: 08/27/13 Exam# [id number] Ordering Dr: Catalina Daly DO STUDY: AB [...] M.D. at 10:31 EST , Service support [phone], CC: Micki Cruz MD; Catalina Daly DO Bone Char Operator: Signed Family History Unknown Family Member [...] kg/m2 Body Surface Area Calculated 1.98 m2 76-Fyz-575190:53 Temperature 97.8 f Pulse 75 /min Comments: [...] kg/m2 Body Surface Area Calculated 1.98 m2 66-Llt-34954:47 Temperature 97.2 f Pulse 66 /min Comments: [...] kg/m2 Body Surface Area Calculated 1.98 m2 85-Mwt-371421:06 Temperature 98.7 f Pulse 72 /min Comments: [...] kg/m2 Body Surface Area Calculated 1.98 m2 :49 Temperature 97 f Pulse 85 /min Comments: [...] kg/m2 Body Surface Area Calculated 2.11 m2 87-Ttb-22433:37 Temperature 98.1 f Comments: Method: Oral Pulse [...] kg/m2 Body Surface Area Calculated 2.11 m2 45-Pbg-968484:05 Temperature 98.8 f Comments: Method: Oral Pulse [...] kg/m2 Body Surface Area Calculated 2.09 m2 :24 Temperature 96.5 f Comments: Method: Oral Pulse [...] 0.00 cm Results Date Description Value Details 97-Vgl-283301:28 Metabolic Panel, Comprehensive Comments: Jan 2017; PATIENT NOT FASTINGPERFORMED BY: [facility]CoKindred [facility] at [email or web address] [id number] (44621) ALT (SGPT) 14 [iU]/L (Normal) Range: 0-32 [...] Glucose, Serum 77 mg/dL (Normal) Range: 65-99 06-Qus-581024:28 CALCIFEDIOL (11479) Comments: Jan 2017; PATIENT NOT FASTINGPERFORMED BY: [employer]us70 dev9k [place] [id number] Vitamin D, 25-Hydroxy 33.0 ng/mL (Normal) Range: 30.0-100.0 Comments: Vitamin D deficiency has been defined by the [place] of[employer]icine and an Endocrine Society practice guideline as alevel of serum 25-OH vitamin D less than 20 ng/mL (1,2).The Endocrine Society went on to further define vitamin Dinsufficiency as a level between 21 and 29 ng/mL (2).1. IOM ([place] of Medicine). 2010. Dietary reference intakes for calcium and D. [place]: The National Academies Press.2. Miki MF, Jamie NC, Cata VEGA, et al. Evaluation, treatment, and prevention of vitamin D deficiency: an Endocrine Society clinical practice guideline. JCEM. 2010; 96(7):1911-30. 92-Ydp-665777:21 C-REACTIVE PROTEIN (51787) Comments: PATIENT NOT FASTINGPERFORMED BY: CB [facility] Gllicv8090 [address] Dynamicsin [place] [id number] C-Reactive Protein, Quant 6.7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 On: 00-Csg-51747:31 Request Urinalysis, Office (39083)Indication: Urinary incontinence On: :44 Request FECAL OCCULT- Tubes sent home (32022)Indication: Encounter for screening for malignant neoplasm of colon (Renamed from Special screening for malignant neoplasms, colon) On: 59-Wgz-457344:12 Request TSH (91209)Indication: Hypothyroidism On: :36 Request T4, FREE (THYROXINE) (57768)Indication: Hypothyroidism On: :35 Request T3, FREE (TRIDOTHYRONINE) (46429)Indication: Hypothyroidism On: :35 Request URINE BECKY CULTURE-IVAN COL COUNT (29722)Indication: UTI symptoms On: 67-Zfr-769382:17 Request LIPASE (15637)Indication: Abdominal pain On: :09 Request AMYLASE (56561)Indication: Abdominal pain On: 85-Qwj-200933:09 Request CBC, Platelets & Auto Diff (05671)Indication: Abdominal pain On: :08 Request Metabolic Panel, Basic (98146)Indication: Abdominal pain On: 39-Owp-923941:08 Request TSH (60727)Indication: Hypertension On: :08 Request CBC, Platelets & Auto Diff (46862)Indication: Hypertension On: 4-Upa-648894:06 Request Metabolic Panel, Comprehensive (93567)Indication: Hypertension On: 1-Mji-843087:05 Request D-Dimer (43385)Indication: Cramp in lower leg On: :02 Request MYOGLOBIN (93464)Indication: Other chest pain On: :02 Request CPK MB FRACTION (78616)Indication: Other chest pain On: : Request ASSAY, TROPONIN, QUANTITATIVE (aka Troponin I) (43453)Indication: Other chest pain On: 3-Mka-455218:01 Request HEPATIC FUNCTION PANEL (82064)Indication: FUNGUS, NOS On: 01-Osz-501355:54 Request MICROALBUMIN URINE QUANT (17526)Indication: Hypertension On: 10-Asa-089472:58 Request CREATININE, URINE (12840)Indication: Hypertension On: 57-Voy-783610:58 Request Troponin I (07125)Indication: Other chest pain On: 69-Jep-634969:12 Request CPK MB FRACTION (31657)Indication: Other chest pain On: 13-Stw-640957:12 Request CREATINE KINASE TOTAL (55681)Indication: Other chest pain On: 57-Hip-812522:12 Request D-Dimer (09731)Indication: Wheezing On: 05-Dec-20099:23 Request Comments: stat TSH (45066)Indication: Abnormal TSH On: 32-Ghl-544564:12 Request TSH (90988)Indication: Abnormal TSH On: 91-Frx-702700:33 Request LIPID PANEL (88136)Indication: Hypercholesteremia On: 25-Rcc-46276:46 Request Comments: repeat in Feb 06 fasting LIPOPROTEIN, BLD, BY NMR (55795)Indication: Hypercholesteremia On: :46 Request Comments: repeat Feb 06 fasting TSH (THYROID STIMULATING HORMONE) (88119)Indication: Abnormal TSH On: 33-Scg-681937:51 Request CBC with manual diff ([id number])Indication: Screening for deficiency anemia On: 00-Nag-883374:12 Request Metabolic Panel, Comprehensive (68121)Indication: Screening for hyperlipidemia On: 18-Ltu-440111:11 Request Lipid Panel (65518)Indication: Screening for hyperlipidemia On: 15-Amk-432334:11 Request TSH ([id number])Indication: Hypothyroidism On: 09-Cvy-120269:10 Request PT/INR, Office (33555)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 On: 58-Cko-853695:38 Request D-Dimer (63732)Indication: Wheezing On: :57 Request Comments: stat C-Reactive Protein (77832)Indication: Wheezing On: :53 Request Comments: stat PT/INR, Office (70005)Indication: superficial thrombophlebitis On: 73-Opa-004420:08 Request PT (Prothrobim Time) (10919)Indication: superficial thrombophlebitis On: 05-Qos-49162:09 Request TSH (22871)Indication: Hypothyroidism On: :14 Request Lipid Panel (42892)Indication: Hypertension On: :14 Request HEPATIC FUNCTION PANEL (19274)Indication: Hypertension On: :14 Request INFLUENZA VIRUS ANTIBDY (53934)Indication: Influenza due to influenza A virus with upper respiratory signs On: :34 Request TSH (13627)Indication: Hypothyroidism On: :41 Request LIPID PANEL (00469)Indication: Hypertension On: :41 Request METABOLIC PANEL, COMPREHENSIVE (67073)Indication: Hypertension On: :41 Request Comments: all labs 3-07 not rountine CBC WITH MANUAL DIFF (74708)Indication: Hypertension On: :41 Request TSH (34511)Indication: Syncope On: 68-Aqs-065955:26 Request METABOLIC PANEL, COMPREHENSIVE (75276)Indication: Syncope On: 88-Key-574638:26 Request CBC (AUTO) ([id number])Indication: Syncope On: 42-Ysa-853221:26 Request Planned Procedures Aerosol Treatment (31256)By: On: 10-Jan-2018 Intent Serena Quiñonez CNP, CNP, Mary E SCREENING DIGITAL TOMOSYNTHESIS On: 02-Nov-2016 Intent OF BREAST ([id number])By: Serena Quiñonez CNP, CNP, Mary E DEXA SCAN AXIAL SKELETON On: 02-Nov-2016 Intent (92881)By: Serena Quiñonez CNP, CNP, Mary E Radiology - ChestBy: Olamide MARTINEZ, On: 17-Aug-2016 Intent Serena Leblanc CNP Comments: Doretha Quiñonez Solu -Medrol Injection, 125 mg On: 17-Aug-2016 Intent (J2930)By: Serena Quiñonez CNP, CNP, Mary E Solu -Medrol Injection, 125 mg On: 17-Aug-2016 Intent (J2930)By: Serena Quiñonez CNP Comments: Lot:[id number]:11/2018Dose:125mgRoute:im Site:r hipGiven By:ALEN signed Branditim MICHELLESerena E Aerosol Treatment ([id number])By: On: 17-Aug-2016 Intent Brandishanamichelle MARTINEZ Serena Mcmanus Brandishanamichelle MARTINEZ Bren MAMMOGRAM, SCREENING, BOTH BREAST On: 13-Jul-2016 Intent (24428)By: Olamide MARTINEZ BrenYonathan Quiñonez CNP Bren DEXA SCAN AXIAL SKELETON On: 13-Jul-2016 Intent (56816)By: Olamide MARTINEZ Bren Cishanamichelle MARTINEZ Bren CT - Abdomen & Pelvis Stone On: 29-Jun-2015 Intent ProtocolBy: Olamide MARTINEZ Bren Cishanamichelle MARTINEZ Bren CT - Abdomen & PelvisBy: Nancy On: 16-Feb-[address] - AbdomenBy: Serena Quiñonez CNP On: 15-Feb-2015 Intent Olamide MARTINEZ Bren CT - Chest (IV Contrast On: 02-Nov-2014 Intent Needed)By: Olamide MARTINEZ Bren Comments: STAT- PE Protocol Brandishanamichelle MARTINEZ Bren Holter Monitor 24 hrsBy: Olamide On: 02-Nov-2014 Intent MICHELLE BrenYonathan Quiñonez CNP Bren Echo CompleteBy: Olamide MARTINEZ Serena On: 02-Nov-2014 Intent E Olamide MARTINEZ Bren EKG (93092)By: Olamide MARTINEZ Bren On: 02-Nov-2014 Intent Olamide MARTINEZ Bren Comments: sinus rhythm similar to 09-28-2011 Radiology - Toe(s) - LeftBy: On: 15-Mar-2014 Intent Olamide MARTINEZ Bren Cishanamichelle MARTINEZ Bren CT - NeckBy: Olamide MARTINEZ Bren On: 15-Feb-2014 Intent Olamide MARTINEZ Bren Comments: cervical spine CT - NeckBy: Micki Cruz MD On: 15-Feb-2014 Intent Comments: STAT STAT STAT STATCALL WET READATTN TO ODONTOID Radiology - Cervical SpineBy: On: 11-Feb-2014 Intent Olamide MARTINEZ BrenYonathan Quiñonez CNP Serena Comments: send resuts to Kyle Quiñonez and Dr. Coughlin (pain specialist) E Venous Doppler - RightBy: Ciesa On: 09-Oct-2013 Intent Serena [...] ([id number])By: Nancy GIPSON, Micki Wright Aerosol Treatment ([id number])By: On: 29-Sep-2012 Intent Serena Quiñonez CNP, CNP, Mary E Toradol Injection, 30 mg On: 30-Apr-2012 Intent (J1885)By: Serena Quiñonez CNP, CNP, Mary E ELECTROCARDIOGRAM, COMPLETE (ECG) On: 28-Sep-2011 Intent (59408)By: Serena Quiñonez CNP Comments: sinus rhythm Serena Quiñonez CNP Bio Z (84649)By: Serena Quiñonez CNP On: 28-Sep-2011 Intent E Serena Quiñonez CNP Comments: with in normal PHYSICAL THERAPY EVALUATION On: 02-Jan-2011 Intent ([id number])By: Serena Quiñonez CNP, CNP, Mary E MRI - Knee(s) - LeftBy: Ciesa On: 02-Jan-2011 Intent Serena MARTINEZ CNP, Mary E Nuclear Stress Test/Stress On: 21-Aug-2010 Intent SPECT/AdenosineBy: eSrena Quiñonez CNP, CNP, Mary E EKG ([id number])By: Serena Quiñonez CNP On: 21-Aug-2010 Intent Serena Quiñonez CNP PHYSICAL THERAPY EVALUATION On: 08-Aug-2010 Intent ([id number])By: Serena Quiñonez CNP, CNP, Mary E Radiology - Knee - LeftBy: Ciesa On: 08-Aug-2010 Intent Serena MARTINEZ CNP, Mary E Radiology - Knee - Left - Weight On: 08-Aug-2010 Intent BearingBy: Olamide MARTINEZSerena Olamide MARTINEZ Serena Mcmanus CT - Chest (IV Contrast On: 06-Dec-2009 Intent Needed)By: Olamide MARTINEZ Serena Mcmanus Comments: stat Olamide MARTINEZ Serena Mcmanus Doppler Ultrasound OtherBy: Olamide On: 05-Dec-2009 Intent Serena MARTINEZ Olamide MARTINEZ Serena Mcmanus Comments: Rt knee and lower extremity with history of PE Please do today Aerosol Treatment ([id number])By: On: 05-Dec-2009 Intent Olamide MARTINEZ Serena Mcmanus Olamide MARTINEZ Serena Mcmanus Pulse Oximetry (72851)By: Olamide On: 05-Dec-2009 Intent Serena MARTINEZ Olamide MARTINEZ Serena Mcmanus CT - Brain/HeadBy: Olamide MARTINEZ, On: 25-Aug-2009 Intent Serena Mcmanus Olamide MARTINEZ Serena Mcmanus DESTRUCT B9 LESION, 1-14 On: 20-Mar-2009 Intent ([id number])By: Micki Cruz MD Doppler Ultrasound OtherBy: Olamide On: 18-Oct-2008 Intent Serena MARTINEZ Olamide MARTINEZ Bren CT - ChestBy: Micki Cruz MD On: 22-Mar-2008 Intent Comments: copyy of both ct to Dr. yeyo jules in [place] and Dr. meehan CT - Abdomen & PelvisBy: Nancy On: 22-Mar-2008 Intent Micki GIPSON Pulse Oximetry (53344)By: On: 22-Mar-2008 Intent RAMA Webster Pulse Oximetry (83377)By: On: 16-Mar-2008 Intent RAMA Webster Echo CompleteBy: Micki Cruz MD On: 11-Mar-2008 Intent Kyle Vancoymcin 500mg/premixedBy: On: 11-Mar-2008 Intent Micki Cruz MD Pulse Oximetry (97174)By: On: 02-Mar-2008 Intent RAMA Webster Pulse Oximetry (96661)By: Olamide On: 26-Feb-2008 Intent Serena MARTINEZ Olamide MARTINEZ Serena Mcmanus CT - Chest (IV Contrast On: 26-Feb-2008 Intent Needed)By: Serena Quiñonez CNP Comments: PE protocolstatSTAT CT shows PE to be admitted Serena Quiñonez CNP Solu -Medrol Injection, 125 mg On: 26-Feb-2008 Intent (J2930)By: Serena Quiñonez CNP Comments: waiver signedAmt: 2mlLot: [id number]: 09/2010Route: IMSite: right hipTolerated: wellGiven By: RADAMES Ta CNP, Mary E Inhaler Demonstration ([id number])By: On: 26-Feb-2008 Intent Serena Quiñoenz CNP, CNP, Mary E Aerosol Treatment (40093)By: On: 26-Feb-2008 Intent Serena Quiñonez CNP, CNP, Mary Comments: done E Venous Doppler - RightBy: Nancy On: 27-Nov-2007 Intent Micki GIPSON Comments: leg 2 weeks DXA, BONE DENSITY, AXIAL SKELETON On: 06-Nov-2007 Intent (76070)By: Micki Cruz MD Comments: estrogen deficient MAMMOGRAM, SCREENING, BOTH On: 06-Nov-2007 Intent BREASTS (75654)By: Micki Cruz MD Pulse Oximetry (15709)By: On: 06-Nov-2007 Intent RAMA Webster Pulse Oximetry (63139)By: Alex On: 24-Sep-2007 Intent Dana Comments: 98% Aerosol Treatment (67881)By: On: 05-Aug-2007 Intent Serena Quiñonez CNP, CNP, Mary E Spirometry (38128)By: Nancy On: 27-May-[address] [...] TSH : DISCONTINUED - T4, FREE (THYROXINE) ([id number]) Indication: Abnormal TSH Abnormal TSH : DISCONTINUED - T3, FREE (TRIDOTHYRONINE) (12939) Indication: Abnormal TSH Abnormal TSH : DISCONTINUED - TSH (THYROID STIMULATING HORMONE) (51968) Indication: Abnormal TSH Encounter for screening for [...] NOS : DISCONTINUED - HEPATIC FUNCTION PANEL (64683) Indication: FUNGUS, NOS Hypertension : DISCONTINUED - TSH (37799) Indication: Hypertension GERD (gastroesophageal reflux disease) : [...] Instructions Indication: Epigastric Pain Encounters Annotation/Addendum On: 09-Apr-2018 12:08 Encounter Diagnosis: Skin infection End: 09-Apr-2018 12:14 [facility] Annotation/Addendum On: 08-Apr-2018 11:24 Encounter Diagnosis: Unspecified [...] recently getting worse-full End: 30-Dec-2017 11:33 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 The patient has [...] For Left Knee replacement Dr. Hernandez in [place] Aug 09, 2015. When pt had Rt [...] mcmanus has been getting her vic[place] from [place] - so encoruaged her to discuss with [...] (obesity ). 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
--- OUTSIDE RECORDS SUMMARY | 2018-07-24 21:16 | XMS RPT_ITS | Continuity of Care Document ---
:1945 External Reference #:[id number] Author Organization [facility] Address [address] [facility] [address] [place] [address] Phone Care Team Providers Name Role Phone Serena Quiñonez CNP Unavailable Anette Connolly Unavailable Michael Duncan Unavailable Sienna ELLINGTON Logan Gómez Unavailable Slarb VP SITE, Cheryle Unavailable Unavailable Long VP SITE, Kalie L Unavailable Unavailable Unavailable Unavailable Problems [...] 715.90) Comments: stable on gabapentin seen at [facility] arthritis neck arthritis and knee pain , has seen Dr. Coughlin for neck pain for injectionwas seen at [facility] arthritis given gabapentinwas taking melox icam daily [...] 5 days Quantity: 10 {Capsule} Refills: 0 Ordered:11-Apr-2018 Olamide MARTINEZ, Serena Patton CNP, Serena Mcmanus Start : 11-Apr-2018 Active LORazepam 1 MG Oral Tablet 1 (one) Tablet daily prn ONLY for 0 days Quantity: 30 {Tablet} Refills: 0 Ordered:08-Apr-2018 Olamide MARTINEZ, Serena Patton CNP, Serena Mcmanus Start : 08-Apr-2018 Active Comments:OARRS hunjfjepN14.9f43.21Thirty Losartan Potassium 50 MG Oral Tablet 1 [...] Quantity: 2 {Tablet} Refills: 1 Ordered:10-Jan-2018 Long VP SITETerence Pinedaraquel Carias Start : 10-Jan-2018 Active ALEVE, [...] 27-Jun-2015 End : 04-Jul-2015 Inactive CITRACAL/VITAMIN D, 890-953OQ-FRWJ (Oral Tablet) 2 QD for 0 days Refills: 0 Ordered:03-Oct-2011 Abby Jones LPN End : 03-Oct-2011 Inactive CLARINEX REDITABS, 5MG (Oral Tablet Dispersible) 1 (one) Tablet Disperse daily for 0 days Quantity: 5 {Tablet_Disperse} Refills: 0 Ordered:06-Jul-2010 RAMA Webster Start : 05-Dec-2009 End : 06-Jul-2010 Inactive CORTISPORIN, 3.5-69696-7 (Otic Solution) 4 Solution Solution tid for [...] Quantity: 30 {Capsule} Refills: 0 Ordered:14-Oct-2015 Brandishanaa CONTACT LENS LATHE OPERATOR, Serena Patton CONTACT LENS LATHE OPERATOR, Bren Start : 14-Oct-2015 End : 13-Dec-2015 Inactive DOXYCYCLINE HYCLATE, 100MG (Oral Tablet Delayed Release) [address] bid for 7 days Quantity: 14 {Tablet_DR} Refills: 0 Ordered:30-Mar-2013 Brandishanaa CONTACT LENS LATHE OPERATOR, Serena Cabana CONTACT LENS LATHE OPERATOR, Bren Start : 30-Mar-2013 End : 06-Apr-2013 [...] Refills: 0 Ordered:28-Sep-2011 Olamide MARTINEZ, Serena Cabanmichelle CONTACT LENS LATHE OPERATOR, Serena Mcmanus Start : 08-Aug-2010 End : 28-Sep-2011 Inactive NYSTOP, 821378VISO/GM (External Powder) Powder take as directed for [...] days Refills: 0 Ordered:18-Nov-2015 Brandishanamichelle MARTINEZ, [facility] Start : 14-Oct-2015 End : [...] {Capsule} Refills: 6 Ordered:10-Nov-2008 Brandishanamichelle MARTINEZ, Serena [facility]Core[facility], Bren Start : 10-Nov-2008 End : [...] Quantity: 1 {Tube} Refills: 0 Ordered:02-Nov-2014 Slarb VP SITE, Cheryle Start : 30-Jun-2014 End : 02-Nov-2014 Discontinued TYLENOL WITH CODEINE #3, 300-30MG (Oral Tablet) 1 (one) Tablet q6-8 hrs prn for 0 days Quantity: 30 {Tablet} Refills: 0 Ordered:27-Jun-2015 Slarb VP SITE, Cheryle Start : 11-Mar-2015 End : 27-Jun-2015 Discontinued TYLENOL, 325MG (Oral Tablet) 1 PRN for 0 days Refills: 0 Ordered:27-Jun-2015 Slarb VP SITE, Cheryle Start : 02-Mar-2015 End : 27-Jun-2015 [...] (M79.609, 729.5) Status: Inactive as of 24-May-2014 intermediate frame tender (current) use of anticoagulants (Z79.01, V58.61) Status: [...] Study (HP) Result: Comments: See Note; NOTES: [facility] Imaging Services [address] [place] [address] Verdana 4d Dexa Bone Density Study () MR#: [id number] Acct: [id number] Name: EVENS SERRANO Rep #: [id number] : 1945 F 71 From: Michael Noland MD PCP: Serena Quiñonez Status: REG CLI Study: Dexa Bone Density Study (HP) Date of Exam: 11/13/16 Exam# [id number] Ordering Dr: Kyle Quiñonez STUDY: DUAL ENERGY [...] Michael Noland MD at 7:57 EDT Tel [phone], Service support , CC: Serena Quiñonez Decator Operator: Signed 13-Nov-2016 SCREENING MAMM (CAD), BILAT Result: Comments: See Note; NOTES: [facility] Imaging Services [address] [place] [address] Verdana 4d SCREENING MAMM (CAD), BILAT MR#: [id number] Acct: [id number] Name: TRINI SERRANO AN D Rep #: [id number] : 1945 F 71 From: Michael Noland MD PCP: Serena Quiñonez Status: REG CLI Study: SCREENING MAMM (CAD), BILAT Date of Exam: 11/13/16 Exam# [id number] Ordering Dr: Yudith Quiñonez MAMMOGRAPHY - BILATERAL [...] y biopsy of a clinically suspicious abnormality. [id number] Electronically Signed: Michael Noland MD at 8:11 EDT Tel [phone], Service support , CC: Serena Quiñonez Decator Operator: Signed 17-Aug-2016 Chest PA and Lateral Result: Comments: See Note; NOTES: [facility] Imaging Services [address] [place] [address] Verdana 4d Chest PA and Lateral MR#: [id number] Acct: [id number] Name: MAURICIO SERRANO p #: [id number] : 1945 F 71 From: Michael Noland MD PCP: Micki Cruz MD Status: REG CLI Study: Chest PA and Lateral Date of Exam: 08/17/16 Exam# [id number] Ordering Dr: Serena Quiñonez STUDY: X-RAY CHEST [...] Michael Noland MD at 14:44 EST Tel [phone], Service support [phone], CC: Serena Quiñonez; Micki Cruz MD Decator Operator: Signed 03-Oct-2015 PT D/C Summary (1) Result: Comments: See Note; NOTES: [facility] Physical Therapy [facility] [address] [place] [address] Fax REHABILITATION NAVJOT DISCHARGE SUMMARY MR#: [id number] Acct: [id number] Name: MAURICIO SERRANO Rep #: [id number] : 1945 70 From: Bolivar Newell DPT, OCS, CSCS Referring Dr.: OUT OF [facility] DOCTOR Status: REG RCR Eval Date: Discharge Date: HP - PT D/C Summary It has been my pleasure to treat MAURICIO SERRANO under orders from [facility] Doctor, SARATH HERNANDEZ for the diagnosis of [...] please feel free to call me at [phone]. Thank you for the referral of this patient. Sincerely, Bolivar Newell <Electronically signed by Bolivar Newell DPT, OCS, CSCS> 10/14 0646 CC: SARATH HERNANDEZ; Micki Cruz MD; OUT OF TOWN DOCTOR EBG Signed 09-Sep-2015 Re-Evaluation - PT (1) Result: Comments: See Note; NOTES: [facility] [address] [place] [address] Fax REEVALUATION / ME DICARE RECERTIFICATION [place] 4d PHYSICAL THERAPY MR#: [id number] Acct: [id number] Name: MAURICIO SERRANO Rep #: [id number] : 1945 70 From: Bolivar Newell DPT, OCS, CSCS Referring Dr.: T [facility] DOCTOR Status: REG R Insurance: Book A Boat Out of Town Doctor, SARATH HERNANDEZ It [...] do not hesitate to contact me at [phone] by phone or if you have questions [...] Discharge Instruction Result: Comments: See Note; NOTES: [facility] Medical Records Department [address] [facility] [place] [address] Discharge Instruction 08/14/152021 MR#: [id number] Acct: [id number] Name: MAURICIO SERRANO Rep #: [id number] : 1945 70 From: Logan Keen MD PCP: Micki Cruz MD Status: DEP ER ED Disposition - Plan for ED Patient: Chief Complaint: Lower Extremity Injury Instructions: ED Dyspnea What to do if you have Problems For any increased pain, shortness of breath, bleeding, nausea or vomiting, chest pain, or any unexpected problems, contact your do ctor. Call Doctors Registry ([phone]) or report to the closest Emergency Room. Call 911 if necessary. 08/18/15 0746 <Electronically signed by Logan Keen MD> Date ____ Logan Keen MD Cosigner Signature (If Indicated): Date CC: Micki Cruz MD 18-Aug-2015 Emergency Department Summary Result: Comments: See Note; NOTES: [facility] Medical Records Department [address] [place] [address] Emergency Department Summary MR#: [id number] Acct: [id number] Name: MAURICIO SERRANO Rep #: [id number] : 1945 70 From: Logan Keen MD PCP: Micki Cruz MD Status: DEP ER DATE OF SERVICE: 08/14/2015 CHIEF COMPLAINT: Shortness of breath, leg swelling. HISTORY OF PRESENT ILLNESS: A 70-year-old female who is 5 days status post left total knee repair done at [facility], presents with shortness of breath and leg [...] Discharge. Logan Keen MD T: NTS JOB: [id number] 08/18/15 0746 <Electronically signed by Logan stovall MD> Date Logan Keen MD Cosigner Signature (If Indicated): Date CC: Micki christine MD Date Dictated: 08/14/152021 Date Transcribed: 08/14/152021 Decator Operator: Signed 14-Aug-2015 CTA Chest W/WO Contrast Result: Comments: See Note; NOTES: [facility] Imaging Services [address] [place] [address] [facility] 4d CTA Chest W/WO Contrast MR#: [id number] Acct: [id number] Name: MAURICIO DORAN Rep #: [id number] : 1945 F 70 From: Sandy Lundberg MD PCP: Micki Cruz MD Status: REG ER Study: CTA Chest W/WO Contrast Date of Exam: 08/14/15 Exam# [id number] Ordering Dr: Logan Velasquez MD STUDY: CTA [...] MD at 20:03 EST , Service support [phone], CC: Germaine Cruz MD; Logan Keen MD Decator Operator: Signed 12-Aug-2015 Inital Evaluation (1) - PT Result: Comments: See Note; NOTES: [facility] [address] [place], [place] [address] Fax REHABILITATION SE [place] INITIAL EVALUATION MR#: [id number] Acct: [id number] Name: MAURICIO SERRANO Rep #: [id number] : 1945 70 From: Bolivar Newell DPT, OCS, CSCS Referring Dr.: OUT OF TOWN DOCTOR Status: REG RCR Insurance: Book A Boat Eval Date: Patient's Visit Information MAURICIO SERRANO is a 70 year old F, referred to Physical Therapy by Out [facility] Doctor, ERENDIRA HERNANDEZ, with a diagnosis of L Knee TKA. Date of Evaluation: 08/11/15 Physical Therapist: Bolivar Newell - Visit Plan Frequency: 3x /Week Duration: 4-6 Weeks - Subjective Subjective: 2 days ago had L TKA at [facility] by Dr. Salazar. Had bone on bone [...] for shoes but takes time. Has a field ring assembler to get socks and pick things up [...] to be FAXED BACK to us at [phone] for Medicare purposes. Please let me know if there are questions or concerns regarding this plan of care. Physic carlo Signature: Date: <Electronically signed by Bolivar Newell DPT, OCS, CSCS> 08/12/15 0642 CC: SARATH HERNANDEZ; Micki shea MD; OUT OF TOWN DOCTOR EBG Signed For Medicare only, by signing this I certify the plan of care. Physicians Signature Date 12-Jul-2015 ELECTROCARDIOGRAM, COMPLETE (ECG) (26951) Comments: sinus rhythm within normal limits Result: [MEASUREMENTS ANALYSIS] Date of Test: 07/12/2015 13:50:06; Heart Rate: 72; LA Interval: 146; QRS: 90; QT Interval: 392; Corrected QT Interval (QTc): 413; P Wave Velva: 47; QRS Wave Velva: 20; T Wave Velva: 51; Blood Pressure: 122/80 [ECG DIAGNOSTIC STATEMENTS] Date of Test: 07/12/2015 13:50:06; Summary: Sinus Rhythm WITHIN NORMAL LIMITS 30-Jun-2015 Abdomen/Pelvis without Cont Result: Comments: See Note; NOTES: [facility] Imaging Services [address] [place] [address] Verdana 4d Abdomen/Pelvis without Cont MR#: [id number] Acct: [id number] Name: MAURICIO SERRANO Rep #: [id number] : 1945 F 69 From: Bella Meade MD PCP: Micki Cruz MD Status: REG CLI Study: Abdomen/Pelvis without Cont Date of Exam: 06/30/15 Exam# [id number] Alexia england Dr: Serena Quiñonez STUDY: CT [...] at 10:49 EST Tel , Service support [phone], CC: Serena Quiñonez; Micki Cruz MD Decator Operator: Signed 17-Feb-2015 Abdomen/Pelvis WITH Contrast Result: Comments: See Note; NOTES: [facility] Imaging Services [address] [place] [address] CAT Scan Report MR#: [id number] Acct: [id number] Name: MAURICIO SERRANO Rep #: [id number] : 1945 F 69 From: Gerald Persaud DO PCP: Micki Cruz MD Status: REG CLI Study: Abdomen/Pelvis WITH Contrast Date of Exam: 02/17/15 Exam# [id number] Ordering Dr: Micki Cruz MD [facility] DY: CT ABDOMEN AND PELVIS [...] at 19:10 EDT Tel , Service support [phone], CC: Micki Cruz MD Decator Operator: Signed 02-Nov-2014 Chest WITH Contrast Result: Comments: See Note; NOTES: [facility] Imaging Services [address] [place] [address] CAT Scan Report MR#: [id number] Acct: [id number] Name: MAURICIO SERRANO Rep #: [id number] : 1945 F 69 From: Michael Noland MD PCP: Micki Cruz MD Status: REG CLI Study: Chest WITH Contrast Date of Exam: 11/02/14 Exam# [id number] Ordering Dr: Serena Quiñonez STUDY: CTA CHEST [...] Michael Noland MD at 15:54 EDT Tel [phone], Service support [phone], CC: Serena Quiñonez; Micki Cruz MD Decator Operator: Signed 15-Mar-2014 Toe(s) Min 2 Views Result: Comments: See Note; NOTES: [facility] Imaging Services [address] [place] [address] Radiology Report MR#: [id number] Acct: [id number] Name: MAURICIO SERRANO Rep #: [id number] : 1945 F 68 From: Romaine Tafoya DO PCP: Micki Cruz MD Status: REG CLI Study: Toe(s) Min 2 Views Date of Exam: 03/15/14 Exam# [id number] Ordering Dr: Serena Quiñonez STUDY: X-RAY LEFT [...] Tafoya DO 2 at 16:54 EDT Tel [phone], Service support [phone], RAD/Toe(s) Min 2 Views IMPRESSION: No acute abnormality of the left second toe. Electron ically Signed: Romaine Tafoya DO at 16:54 EDT Tel [phone], Service support [phone], CC: Serena Quiñonez; Micki Cruz MD Decator Operator: Signed 15-Feb-2014 Spine Cervical without Contras Result: Comments: See Note; NOTES: [facility] Imaging Services [address] [place] [address] CAT Scan Report MR#: [id number] Acct: [id number] Name: MAURICIO SERRANO Rep #: [id number] : 1945 F 68 From: Michael Noland MD PCP: Micki Cruz MD Status: REG CLI Study: Spine Cervical without Contras Date of Exam: 02/15/14 Exam# [id number] Ordering Dr: Micki Cruz MD STUDY: CT [...] Noland MD at 14:08 E DT Tel [phone], Service support [phone], CC: Micki Cruz MD Decator Operator: Signed 11-Feb-2014 Cerv Spine 4 or 5 Views Result: Comments: See Note; NOTES: [facility] Imaging Services [address] [facility] [place] [address] Radiology Report MR#: [id number] Acct: [id number] Name: MAURICIO SERRANO Rep #: [id number] : 1945 F 68 From: Julio Charles DO PCP: Micki Cruz MD Status: REG CLI Study: Cerv Spine 4 or 5 Views Date of Exam: 02/11/14 Exam# [id number] Ordering Dr: Serena Quiñonez STUDY: X-RAY - [...] Charles DO at 19 :48 EDT Tel [phone], Service support [phone], CC: Serena Cruz MD Decator Operator: Signed 09-Oct-2013 Knee 4 or More Views Result: Comments: See Note; NOTES: [facility] Imaging Services [address] [place] [address] Radiology Report MR#: [id number] Acct: [id number] Name: MAURICIO SERRANO Germaine Rep #: [id number] : 1945 F 68 From: Romaine Tafoya DO PCP: Micki Cruz MD Status: REG CLI Study: Knee 4 or More Views Date of Exam: 10/09/13 Exam# [id number] Ordering Dr: Serena Quiñonez STUDY: X-RAY - [...] Romaine Tafoya DO at 19:01 EDT Tel [phone], Service support [phone], CC: Serena Cruz MD Decator Operator: Signed 03-Sep-2013 Hepatobilliary Imaging Result: Comments: See Note; NOTES: [facility] Imaging Services [address] [place] [address] Nuclear Medicine Report MR#: [id number] Acct: [id number] Name: KRISTAQIMAURICIO D Rep #: [id number] : 1945 F 68 From: Gene Diallo DO PCP: Micki Cruz MD Status: REG CLI Study: Hepatobilliary Imaging Date of Exam: 09/03/13 Exam# [id number] Ordering Dr: Catalina Daly DO CLINICAL: 68-year-old [...] M.D. at 7:07 EST , Service support [phone], Fa x [phone] CLINICAL: 68-year-old female with reported history of [...] CC: Micki Cruz MD; Catalina Daly DO Decator Operator: Signed 27-Aug-2013 Gallbladder Result: Comments: See Note; NOTES: [facility] Imaging Services [address] [place] [address] Ultrasound Report MR#: [id number] Acct: [id number] Name: MAURICIO SERRANO Germaine Rep #: [id number] : 1945 F 68 From: Michael Noland MD PCP: Micki Cruz MD Status: REG CLI Study: Gallbladder Date of Exam: 08/27/13 Exam# [id number] Ordering Dr: Catalina Daly DO STUDY: AB [...] M.D. at 10:31 EST , Service support [phone], CC: Micki Cruz MD; Catalina Daly DO Decator Operator: Signed Family History Unknown Family Member [...] kg/m2 Body Surface Area Calculated 1.98 m2 98-Gsh-029780:53 Temperature 97.8 f Pulse 75 /min Comments: [...] kg/m2 Body Surface Area Calculated 1.98 m2 83-Llj-73344:47 Temperature 97.2 f Pulse 66 /min Comments: [...] kg/m2 Body Surface Area Calculated 1.98 m2 61-Jwh-022723:06 Temperature 98.7 f Pulse 72 /min Comments: [...] kg/m2 Body Surface Area Calculated 2.11 m2 48-Xum-79779:37 Temperature 98.1 f Comments: Method: Oral Pulse [...] kg/m2 Body Surface Area Calculated 2.11 m2 83-Cmo-027027:05 Temperature 98.8 f Comments: Method: Oral Pulse [...] 0.00 cm Results Date Description Value Details 16-Wuu-911673:28 Metabolic Panel, Comprehensive Comments: Jan 2017; PATIENT NOT FASTINGPERFORMED BY: [facility] Hospital[facility]hzsha9628 [facility] [id number] (75405) ALT (SGPT) 14 [iU]/L (Normal) Range: 0-32 [...] Glucose, Serum 77 mg/dL (Normal) Range: 65-99 03-Bot-129415:28 CALCIFEDIOL (55681) Comments: Jan 2017; PATIENT NOT FASTINGPERFORMED BY: [employer] [place] [id number] Vitamin D, 25-Hydroxy 33.0 ng/mL (Normal) Range: 30.0-100.0 Comments: Vitamin D deficiency has been defined by the Enterprise ofMedicine and an Endocrine Society practice guideline as alevel of serum 25-OH vitamin D less than 20 ng/mL (1,2).The Endocrine Society went on to further define vitamin Dinsufficiency as a level between 21 and 29 ng/mL (2).1. IOM (Enter[employer] of Medicine). 2010. Dietary reference intakes for calcium and D. [place]: The National Academies Press.2. Miki MF, Jamie NC, Cata VEGA, et al. Evaluation, treatment, and prevention of vitamin D deficiency: an Endocrine Society clinical practice guideline. JCEM. 2010; 96(7):1911-30. 12-Sio-170821:21 C-REACTIVE PROTEIN (74364) Comments: PATIENT NOT FASTINGPERFORMED BY: CB [facility] [address] [place] [id number] C-Reactive Protein, Quant 6.7 mg/L (Abnormal) Range: 0.0-4.9 01-Iwm-846525:21 SED RATE ERYTHROCYTE (61877) Comments: PATIENT NOT FASTINGPERFORMED BY: Pet[facility] [address] [place] [id number] Sedimentation Rate-Westergren 5 mm/h (Normal) Range: 0-40 96-Hrl-439005:21 METABOLIC PANEL, COMPREHENSIVE Comments: PATIENT NOT FASTINGPERFORMED BY: [facility] [id number] (90363) ALT (SGPT) 12 [iU]/L (Normal) Range: 0-32 [...] Glucose, Serum 69 mg/dL (Normal) Range: 65-99 64-Meg-495327:21 CBC, PLATELETS & AUT DIFF Comments: PATIENT NOT FASTINGPERFORMED BY: [facility] [id number] (42642) Immature Grans (Abs) 0.0 {x10E3/uL} (Normal) Range: [...] (Normal) Range: 3.4-10.8 :08 T4, FREE (THYROXINE) (98686) Comments: PATIENT NOT FASTINGPERFORMED BY: [facility] [id number] T4,Free(Direct) 1.31 ng/dL (Normal) Range: 0.82-1.77 :08 T3, FREE (TRIDOTHYRONINE) (18068) Comments: PATIENT NOT FASTINGPERFORMED BY: [facility] [id number] Triiodothyronine,Free,Serum 2.2 pg/mL (Normal) Range: 2.0-4.4 02-Nov-20169:08 TSH (38633) Comments: PATIENT NOT FASTINGPERFORMED BY: [facility] Bedypx9612 [facility] [id number] TSH 3.520 {uIU/mL} (Normal) Range: 0.450-4.500 13-Nzy-770100:28 Metabolic Panel, Comprehensive Comments: PATIENT NOT FASTINGPERFORMED BY: Domo SafetyUNM Children's Psychiatric CenterDhbkyt1187 [facility] [id number] (62439) ALT (SGPT) 15 [iU]/L (Normal) Range: 0-32 [...] Glucose, Serum 93 mg/dL (Normal) Range: 65-99 60-Hnb-681433:28 CBC, Platelets & Auto Diff Comments: PATIENT NOT FASTINGPERFORMED BY: LabCoUN[facility] Psychiatric CenterHzyydb0447 [facility] [id number] (68960) Immature Grans (Abs) 0.0 {x10E3/uL} (Normal) Range: [...] 3.77-5.28 WBC 6.8 {x10E3/uL} (Normal) Range: 3.4-10.8 09-Duo-224726:28 TSH (69412) Comments: PATIENT NOT FASTINGPERFORMED BY: [facility] Wwvrww6134 [facility] [id number] TSH 0.034 {uIU/mL} (Abnormal) Range: 0.450-4.500 33-Auk-434758:40 CBC W/Diff, Automated Comments: [facility] [address] [place], [place], [address] Absolute Lymph 2.31 {X10_3/ul} (Normal) Range: 0.83-4.51 [...] 4.2-5.4 WBC 8.7 K/mm3 (Normal) Range: 4.4-11.0 01-Oxn-151067:40 Comprehensive Metabolic Profil Comments: [facility] [address] [place], [place], [address] GAP 7 (Normal) Range: 5-15 CO2 29.0 [...] 7-18 GLU 106 mg/dL (Normal) Range: 70-110 16-Elq-293947:07 URINE BECKY CULTURE-IDENTIFICATN Comments: PATIENT NOT FASTINGPERFORMED BY: [employer] [facility] [id number] (50797) Result 1 CNSNSS (Abnormal) Comments: Coagulase negative [...] S Urine Final report Culture,Comprehens (Abnormal) svetlana 93-Wua-252676:07 Metabolic Panel, Comprehensive Comments: PATIENT NOT FASTINGPERFORMED BY: [place].fmox RoadDublin [place] [id number] (10038) ALT (SGPT) 14 [iU]/L (Normal) Range: 0-32 [...] Glucose, Serum 76 mg/dL (Normal) Range: 65-99 17-Ynb-844959:07 CBC, Platelets & Auto Comments: PATIENT NOT FASTINGPERFORMED BY: [facility] Jvzynj8082 [facility] [id number] Information: [id number], [id number] Diff (98118) Immature Grans (Abs) 0.0 {x10E3/uL} (Normal) Range: [...] 3.77-5.28 WBC 8.1 {x10E3/uL} (Normal) Range: 3.4-10.8 33-Wch-481371:07 PT (Prothrobim Time) (87978) Comments: PATIENT NOT FASTINGPERFORMED BY: [facility]CoH[facility] HospitalKbghwr3041 [facility] [id number] Prothrombin Time 10.4 {sec} (Normal) Range: 9.1-12.0 INR 1.0 (Normal) Range: 0.8-1.2 Comments: Reference interval is for non-anticoagulated patients. . Suggested INR therapeutic range for Vitamin K anta gonist therapy: Standard Dose (moderate intensity therapeutic range): 2.0 - 3.0 Higher intensity therapeutic range 2.5 - 3.5 :53 Urinalysis, Office (54170) UA - LEUKOCYTE ESTERASE Small (Normal) UA - NITRITE Negative (Normal) URINE UROBILINGN IVAN TIMED Normal mg/dL (Normal) UA - PROTEIN Negative mg/dL (Normal) UA - PH 5.0 (Normal) Comments: 5.5 UA - BLOOD Non Hemolyzed Trace (Normal) UA - SPECIFIC GRAVITY 1.005 (Normal) UA - KETONES Negative mg/dL (Normal) UA - BILIRUBIN Negative (Normal) UA - GLUCOSE Negative (Normal) 13-Jjm-440150:17 Urinalysis, Office (02762) UA - LEUKOCYTE ESTERASE Large (Normal) UA - NITRITE Negative (Normal) URINE UROBILINGN IVAN TIMED Normal mg/dL (Normal) UA - PROTEIN 100 mg/dL (Normal) UA - PH 6 (Abnormal) UA - BLOOD Hemolyzed Large (Normal) UA - SPECIFIC GRAVITY 1.025 (Normal) UA - KETONES Negative mg/dL (Normal) UA - BILIRUBIN Negative (Normal) UA - GLUCOSE Negative (Normal) 31-May-2015 [facility] See Note (Normal) Comments: [facility] [address] [place], [address] 12:32 Comments: Patient: MAURICIO SERRANO : 1945 (69/F) Acct Num: [id number] Phys: Eugenio Laguna Unit Num: [id number] Loc: LABSPEC Specimen: [id number] Received: 05/31/151609 Spec Type: EGD BIOPSY TISSUES TISSUES: COMMENT The results of immunohistochemistry for Helicobacter pylori will be reported separately ([id number]). Alcian blue/PAS stain with matched control was [...] one cassette. / AM: 06/01/15 TC:3 CPT: 81180, 77544 HEADER OPERATION: EGD w ith biopsy PRE-OP [...] of intestinal metaplasia. AM: 06/02/15 Signed [facility] 06/02/15 <signature on file> 31-May-2015 IMMUNOHISTOCHEMISTRY See Note (Normal) Comments: [facility] [address] [place], [place], [id number] 0:00 Comments: Patient: MAURICIO SERRANO : 1945 (69/F) Acct Num: [id number] Phys: Eugenio Laguna Unit Num: [id number] Loc: LABSPEC Specimen: [id number] Received: 06/02/151156 Spec Type : IMMUNO TISSUES TISSUES: SPECIMEN INFORMATION: Tissue Source: Gastric antrum, biopsy Clinical Info: Peptic ulcer disease Specimen Number: [id number] CPT code: 84193 METHODOL OGY: Deparaffinized sections of prefer/formalin-fixed tissue or PAP/DQ stained slides are incubated with monoclonal/polyclonal antibodies/oligonucleotide probes. Localization is made via biotin free immunoperoxidase method. Appropriate controls are performed and reacted as expected. Results on target cell population are indicated in the following table: RESULTS: ANTIBODY / CLONE RESULT H Pylori (polyclonal) negative These tests were developed and their performance characteristics determined by [facility]. They may not have been cleared or approved by the U.S. Food and Drug Administration. The FDA has determined that such clearance or approval is not necessary. INTERPRETATION: Gastric antrum, biopsy: Negative for H elicobacter pylori. AM:charles 06/02/15 PHYSICIAN AND INSTITUTION [address] [address] Signed [facility] 06/02/15 <signature on file> 01-Mar-2015 Gastric Biopsy See Note (Normal) Comments: Test performed at:[facility] [address] [place] [address] 10:56 Comments: Patient: MAURICIO SERRANO : 1945 (69/F) Acct Num: [id number] Phys: Eugenio Laguna Unit Num: [id number] Loc: LABSPEC Specimen: [id number] Received: 03/01/151700 Spec Type: Gastric Bx TISSUES TISSUES: COMMENT A AND B - The results of immunohistochemistry for Helicobacter pylori will be reported separately ([id number]). GROSS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 20-Mar-2009 Intent ([id number])By: Micki Cruz MD Doppler Ultrasound OtherBy: Olamide On: 18-Oct-2008 Intent Serena MARTINEZ Olamide MARTINEZ Bren CT - ChestBy: Micki Cruz MD On: 22-Mar-2008 Intent Comments: copyy of both ct to Dr. yeyo jules in [place] and Dr. meehan CT - Abdomen & PelvisBy: Nancy On: 22-Mar-2008 Intent Micki GIPSON Pulse Oximetry ([id number])By: On: 22-Mar-2008 Intent RAMA Webster Pulse Oximetry ([id number])By: On: 16-Mar-2008 Intent RAMA Webster Echo CompleteBy: Micki Cruz MD On: 11-Mar-2008 Intent Kyle Vancoymcin 500mg/premixedBy: On: 11-Mar-2008 Intent Micki Cruz MD Pulse Oximetry ([id number])By: On: 02-Mar-2008 Intent RAMA Webster Pulse Oximetry ([id number])By: Olamide On: 26-Feb-2008 Intent Serena MARTINEZ Olamide MARTINEZ Serena Mcmanus CT - Chest (IV Contrast On: 26-Feb-2008 Intent Needed)By: Serena Quiñonez CNP Comments: PE protocolstatSTAT CT shows PE to be admitted Sernea Quiñonez CNP Solu -Medrol Injection, 125 mg On: 26-Feb-2008 Intent ([id number])By: Serena Quiñonez CNP Comments: waiver signedAmt: 2mlLot: [id number]: 09/2010Route: IMSite: right hipTolerated: wellGiven By: RADAMES Ta CNP, Mary E Inhaler Demonstration ([id number])By: On: 26-Feb-2008 Intent Serena Quiñonez CNP, CNP, Mary E Aerosol Treatment ([id number])By: On: 26-Feb-2008 Intent Serena Quiñonez CNP, CNP, Mary Comments: done E Venous Doppler - RightBy: Nancy On: 27-Nov-2007 Intent Micki GIPSON Comments: leg 2 weeks DXA, BONE DENSITY, AXIAL SKELETON On: 06-Nov-2007 Intent ([id number])By: Micki Cruz MD Comments: estrogen deficient MAMMOGRAM, SCREENING, BOTH On: 06-Nov-2007 Intent BREASTS ([id number])By: Micki Cruz MD Pulse Oximetry ([id number])By: On: 06-Nov-2007 Intent RAMA Webster Pulse Oximetry ([id number])By: Alex On: 24-Sep-2007 Intent Dana Comments: 98% Aerosol Treatment ([id number])By: On: 05-Aug-2007 Intent Serena Quiñonez CNP, CNP, Mary E Spirometry ([id number])By: Nancy On: 27-May-[address] [...] TSH : DISCONTINUED - T4, FREE (THYROXINE) ([id number]) Indication: Abnormal TSH Abnormal TSH : DISCONTINUED - T3, FREE (TRIDOTHYRONINE) ([id number]) Indication: Abnormal TSH Abnormal TSH : DISCONTINUED - TSH (THYROID STIMULATING HORMONE) ([id number]) Indication: Abnormal TSH Encounter for screening for [...] NOS : DISCONTINUED - HEPATIC FUNCTION PANEL ([id number]) Indication: FUNGUS, NOS Hypertension : DISCONTINUED - TSH ([id number]) Indication: Hypertension GERD (gastroesophageal reflux disease) : [...] recently getting worse-full End: 30-Dec-2017 11:33 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 He is not doing well and [...] The patient does have durable power of attorney lawyer and living will. The patient has noticed [...] For Left Knee replacement Dr. Hernandez in [place] Aug 09, 2015. When pt had Rt [...] (obesity ). 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
--- OUTSIDE RECORDS SUMMARY | 2018-07-24 21:18 | XMS RPT_ITS | Continuity of Care Document ---
:1945 External Reference #:[id number] Author Organization [facility] Address [address] [facility] [address] [place] [address] Phone Care Team Providers Name Role Phone Serena Quiñonez CNP Unavailable Anette Connolly Unavailable Dr. Acosta Talbot Unavailable Michael Duncan Unavailable Logan El DO Unavailable Slarb TIRE SHOP MECHANIC, Cheryle Unavailable Unavailable Long TIRE SHOP MECHANIC, Kalie L Unavailable Unavailable long, yuko Unavailable Unavailable Unavailable Unavailable Problems Name Dates [...] 715.90) Comments: stable on gabapentin seen at [facility] arthritis neck arthritis and knee pain , has seen Dr. Coughlin for neck pain for injectionwas seen at [facility] arthritis given gabapentinwas taking melox icam daily lead to gastric ulcer stopped meloxicam Status: Active Osteopenia (M85.80, 733.90) Status: Active Postmenopausal (Renamed from Postmenopausal status) (Z78.0, V49.81) Status: Active Pregnancies () Comments: 5 Status: Active Rash of body (R21, 782.1) Status: Active Right leg swelling (M79.89, 729.81) [...] days Quantity: 60 {Tablet} Refills: 1 Ordered:08-Apr-2018 Olamide MARTINEZ, Serena Patton CNP, Serena Mcmanus Start : 08-Apr-2018 Active Calcium 500 + [...] Serena Mcmanus Start : 08-Apr-2018 Active Comments:OARRS punxejsiV12.9f43.21Thirty Losartan Potassium 50 MG Oral Tablet 1 [...] Quantity: 2 {Tablet} Refills: 1 Ordered:10-Jan-2018 Long TIRE SHOP MECHANICKalie Start : 10-Jan-2018 Active ALEVE, 220MG (Oral [...] days Quantity: 20 {Tablet} Refills: 0 Ordered:15-Aug-2016 Cheryle Andrade LPN Start : 15-Aug-2016 End : 25-Aug-2016 Inactive [...] 27-Jun-2015 End : 04-Jul-2015 Inactive CITRACAL/VITAMIN D, 589-821RR-IWZM (Oral Tablet) 2 QD for 0 days Refills: 0 Ordered:03-Oct-2011 Abby Jones LPN End : 03-Oct-2011 Inactive CLARINEX REDITABS, 5MG (Oral Tablet Dispersible) 1 (one) Tablet Disperse daily for 0 days Quantity: 5 {Tablet_Disperse} Refills: 0 Ordered:06-Jul-2010 RAMA Webster Start : 05-Dec-2009 End : 06-Jul-2010 Inactive CORTISPORIN, 3.5-15336-9 (Otic Solution) 4 Solution Solution tid for 0 days Quantity: 1 {Bottle} Refills: 0 Ordered:16-Oct-2013 Robert CRUMAbby Start : 11-Aug-2013 End : 16-Oct-2013 Inactive [...] Quantity: 60 {Capsule} Refills: 0 Ordered:01-Oct-2017 Olamide MARTINEZ Serena SHERIEdmitriymichelle MARTINEZ Serena Mcmanus Start : 01-Oct-2017 End : [...] Quantity: 30 {Capsule} Refills: 0 Ordered:14-Oct-2015 Olamide MARTINEZ Serena Cabanmichelle MARTINEZ Serena Mcmanus Start : 14-Oct-2015 End : 13-Dec-2015 Inactive Doxycycline Hyclate 100 MG Oral Capsule 1 (one) Capsule BID for 5 days Quantity: 10 {Capsule} Refills: 0 Ordered:11-Apr-2018 Olamide MARTINEZ Serena Cabanmichelle MARTINEZ Serena Mcmanus Start : 11-Apr-2018 End : 16-Apr-2018 Inactive DOXYCYCLINE HYCLATE, 100MG (Oral Tablet Delayed Release) [address] bid for 7 days Quantity: 14 {Tablet_DR} Refills: 0 Ordered:30-Mar-2013 Olamide MARTINEZ Serena Cabanmichelle MARTINEZ Serena Mcmanus Start : 30-Mar-2013 End : 06-Apr-2013 Inactive Comments:take with food ESCITALOPRAM OXALATE, 10MG (Oral Tablet) 1 (one) Tablet daily for 0 days Quantity: 90 {Tablet} Refills: 2 Ordered:15-Nov-2008 RAMA Webster Start : 15-Nov-2008 End : 17-Mar-2009 Inactive FISH OIL, 1000MG (Oral Capsule) 1 (one) Capsule daily for 0 days Refills: 0 Ordered:03-Oct-2011 Robert CRUM Abby Start : 17-Feb-2009 End : 03-Oct-2011 Inactive FLEXERIL, 10MG (Oral Tablet) 1 Tablet q8hrs prn for 0 days Quantity: 30 {Tablet} Refills: 0 Ordered:20-Jun-2012 Robert CRUM Abby Start : 30-Apr-2012 End : 20-Jun-2012 Inactive GABAPENTIN, 100MG (Oral Capsule) 1 -2 Capsule tid as needed for 30 days Refills: 0 Ordered:15-Aug-2015 Brandishanamichelle MARTINEZ, Serena Cabanmichelle MARTINEZ Serena Mcmanus Start : 27-Jun-2015 End : [...] Quantity: 30 {Tablet} Refills: 0 Ordered:18-Nov-2015 Olamide FOUNDRY WORKER APPRENTICE, Serena Patton FOUNDRY WORKER APPRENTICE, Serena Mcmanus Start : 14-Oct-2015 End : 13-Nov-2015 Inactive LEVAQUIN, 500MG (Oral Tablet) 1 Tablet daily for 10 days Quantity: 10 {Tablet} Refills: 0 Ordered:01-Oct-2012 Olamide FOUNDRY WORKER APPRENTICE, Serena Patton CNP, Serena Mcmanus Start : 01-Oct-2012 End : 11-Oct-2012 Inactive Comments:void after 30 days LEXAPRO, 10MG (Oral Tablet) 1 Tablet QD for 0 days Quantity: 10 {Tablet} Refills: 0 Ordered:09-Jul-2011 RAMA Webster Start : 09-Jul-2011 End : 09-Jul-2011 Inactive LISINOPRIL, 10MG (Oral Tablet) 1 (one) Tablet(s) daily for 0 days Quantity: 30 {Tablet} Refills: 6 Ordered:28-Sep-2011 Olamide MARITNEZ, Serena Patton CNP, Serena Mcmanus Start : [...] : 08-Aug-2010 End : 28-Sep-2011 Inactive NYSTOP, 064974BISC/GM (External Powder) Powder take as directed for [...] for 7 days Refills: 0 Ordered:15-Jul-2012 Olamide MARTINEZ, Serena Patton CNP, Serena Mcmanus [...] hrs for 30 days Refills: 0 Ordered:18-Nov-2015 Serena Quiñonez CNP, CNP, Bren Start : 14-Oct-2015 End : 13-Nov-2015 [...] days Quantity: 30 {Capsule} Refills: 6 Ordered:10-Nov-2008 Serena Quiñonez CNP, CNP, Bren Start : 10-Nov-2008 End : 10-Nov-2008 [...] {Tablet} Refills: 5 Ordered:18-Oct-2008 Serena Quiñonez CNP, CNP, Mary E Start : 18-Oct-2008 End : 18-Oct-2008 Discontinued Comments:disp.#100 with3 refills COUMADIN, 2MG (Oral Tablet) 11/2 Tablet QD for 0 days Quantity: 30 {Tablet} Refills: 5 Ordered:11-Nov-2008 Serena Quiñonez CNP, CNP, Mary E Start : 11-Nov-2008 End : 11-Nov-2008 Discontinued [...] : 20-Jun-2012 Discontinued Comments:This order discontinued per [facility]. OXYCODONE HCL, 5MG (Oral Tablet) 1 (one) [...] Quantity: 30 {Capsule} Refills: 6 Ordered:15-Dec-2014 Slarb TIRE SHOP MECHANIC, Cheryle Start : 20-Feb-2013 End : 15-Dec-2014 Discontinued TESSALON PERLES, 100MG (Oral Capsule) 1 (one) Capsule tid for 0 days Quantity: 30 {Capsule} Refills: 0 Ordered:11-Aug-2007 Dana Johnson Start : 11-Aug-2007 End : 06-Nov-2007 Discontinued TOPICORT, 0.25% (External Cream) 1 (one) Cream bid for 0 days Quantity: 1 {Tube} Refills: 0 Ordered:02-Nov-2014 Slarb TIRE SHOP MECHANIC, Cheryle Start : 30-Jun-2014 End : 02-Nov-2014 Discontinued TYLENOL WITH CODEINE #3, 300-30MG (Oral Tablet) 1 (one) Tablet q6-8 hrs prn for 0 days Quantity: 30 {Tablet} Refills: 0 Ordered:27-Jun-2015 Slarb TIRE SHOP MECHANIC, Cheryle Start : 11-Mar-2015 End : 27-Jun-2015 Discontinued TYLENOL, 325MG (Oral Tablet) 1 PRN for 0 days Refills: 0 Ordered:27-Jun-2015 Slarb TIRE SHOP MECHANIC, Cheryle Start : 02-Mar-2015 End : 27-Jun-2015 [...] (M79.609, 729.5) Status: Inactive as of 24-May-2014 director long term care (current) use of anticoagulants (Z79.01, V58.61) [...] Study (HP) Result: Comments: See Note; NOTES: [facility] Imaging Services [address] [place] [address] Verdana 4d Dexa Bone Density Study (HP) MR#: [id number] Acct: [id number] Name: EVENS SERRANO Germaine Rep #: [id number] : 1945 F 71 From: Michael Noland MD PCP: Serena Quiñonez Status: REG CLI Study: Dexa Bone Density Study (HP) Date of Exam: 11/13/16 Exam# [id number] Ordering Dr: Kyle Quiñonez STUDY: DUAL ENERGY [...] Michael Noland MD at 7:57 EDT Tel [phone], Service support , CC: Serena Quiñonez Manager Mechanical: Signed 13-Nov-2016 SCREENING MAMM (CAD), BILAT Result: Comments: See Note; NOTES: [facility] Imaging Services [address] [place] [address] Verdana 4d SCREENING MAMM (CAD), BILAT MR#: [id number] Acct: [id number] Name: TRINI SERRANO Rep #: [id number] : 1945 F 71 From: Michael Noland MD PCP: Serena Quiñonez Status: REG CLI Study: SCREENING MAMM (CAD), BILAT Date of Exam: 11/13/16 Exam# [id number] Ordering Dr: Yudith Quiñonez MAMMOGRAPHY - BILATERAL [...] y biopsy of a clinically suspicious abnormality. [id number] Electronically Signed: Michael Noland MD at 8:11 EDT Tel [phone], Service support , CC: Serena Quiñonez Manager Mechanical: Signed 17-Aug-2016 Chest PA and Lateral Result: Comments: See Note; NOTES: [facility] Imaging Services [address] [place] [address] Verdana 4d Chest PA and Lateral MR#: [id number] Acct: [id number] Name: MAURICIO SERRANO p #: [id number] : 1945 F 71 From: Michael Noland MD PCP: Micki Cruz MD Status: REG CLI Study: Chest PA and Lateral Date of Exam: 08/17/16 Exam# [id number] Ordering Dr: Serena Quiñonez STUDY: X-RAY CHEST [...] Michael Noland MD at 14:44 EST Tel [phone], Service support [phone], CC: Serena Quiñonez; Micki Cruz MD Manager Mechanical: Signed 03-Oct-2015 PT D/C Summary (1) Result: Comments: See Note; NOTES: [facility] [address] [place] [address] Fax REHABILITATION SE RVICES DISCHARGE SUMMARY MR#: [id number] Acct: [id number] Name: MAURICIO SERRANO Rep #: [id number] : 1945 70 From: Bolivar Newell DPT, OCS, CSCS Referring Dr.: OUT [facility] DOCTOR Status: REG RCR Eval Date: Discharge Date: HP - PT D/C Summary It has been my pleasure to treat MAURICIO SERRANO under orders from [facility] Doctor, SARATH HERNANDEZ for the diagnosis [...] please feel free to call me at [phone]. Thank you for the referral of this patient. Sincerely, Bolivar Newell <Electronically signed by Bolivar Newell DPT, OCS, CSCS> 10/14 0646 CC: SARATH HERNANDEZ; Micki Cruz MD; OUT OF TOWN DOCTOR EBG Signed 09-Sep-2015 Re-Evaluation - PT (1) Result: Comments: See Note; NOTES: [facility] [address] [place], [place] [address] Fax REEVALUATION / ME DICARE RECERTIFICATION [place] 4d PHYSICAL THERAPY MR#: [id number] Acct: [id number] Name: MAURICIO SERRANO Rep #: [id number] : 1945 70 From: Bolivar Newell DPT, OCS, CSCS Referring DrPaxton: SHAHNAZ CHUN [facility] DOCTOR Status: REG R Insurance: AYLIEN Out of [facility] Doctor, SARATH HERNANDEZ It has been my [...] do not hesitate to contact me at [phone] by phone or if you have questions [...] Discharge Instruction Result: Comments: See Note; NOTES: [facility] Medical Records Department [address] [place] [address] Discharge Instruction 08/14/152021 MR#: [id number] Acct: [id number] Name: MAURICIO SERRANO Rep #: [id number] : 1945 70 From: Logan Keen MD PCP: Micki Cruz MD Status: DEP ER ED Disposition - Plan for ED Patient: Chief Complaint: Lower Extremity Injury Instructions: ED Dyspnea What to do if you have Problems For any increased pain, shortness of breath, bleeding, nausea or vomiting, chest pain, or any unexpected problems, contact your do ctor. Call Doctors [facility] ([phone]) or report to the closest Emergency Room. Call 911 if necessary. 08/18/15 0746 <Electronically signed by Logan Keen MD> Date ____ Logan Keen MD Cosigner Signature (If Indicated): Date CC: Micki Cruz MD 18-Aug-2015 Emergency Department Summary Result: Comments: See Note; NOTES: [facility] Medical Records Department [address] [place] [address] Emergency Department Summary MR#: [id number] Acct: [id number] Name: MAURICIO SERRANO Rep #: [id number] : 1945 70 From: Logan Keen MD PCP: Micki Cruz MD Status: DEP ER DATE OF SERVICE: 08/14/2015 CHIEF COMPLAINT: Shortness of breath, leg swelling. HISTORY OF PRESENT ILLNESS: A 70-year-old female who is 5 days status post left total knee repair done at [facility], presents with shortness of breath and leg [...] Discharge. Logan Keen MD T: NTS JOB: [id number] 08/18/15 0746 <Electronically signed by Logan stovall MD> Date Logan Keen MD Cosigner Signature (If Indicated): Date CC: Micki christine MD Date Dictated: 02/14/16 2022 Date Transcribed: 08/14/152021 Manager Mechanical: Signed 14-Aug-2015 CTA Chest W/WO Contrast Result: Comments: See Note; NOTES: [facility] Imaging Services [address] [place] [address] Verdana 4d CTA Chest W/WO Contrast MR#: [id number] Acct: [id number] Name: MAURICIO DORAN Rep #: [id number] : 1945 F 70 From: Sandy Lundberg MD PCP: Micki Cruz MD Status: REG ER Study: CTA Chest W/WO Contrast Date of Exam: 08/14/15 Exam# [id number] Ordering Dr: Logan Velasquez MD STUDY: CTA [...] MD at 20:03 EST , Service support [phone], CC: Germaine Cruz MD; Logan Keen MD Manager Mechanical: Signed 12-Aug-2015 Inital Evaluation (1) - PT Result: Comments: See Note; NOTES: [facility] [address] [place], [place] [address] Fax REHABILITATION SE RVICES INITIAL EVALUATION MR#: [id number] Acct: [id number] Name: MAURICIO SERRANO Rep #: [id number] : 1945 70 From: Bolivar Newell DPT, OCS, CSCS Referring Dr.: OUT OF TOWN DOCTOR Status: REG RCR Insurance: AYLIEN [employer] Date: Patient's Visit Information MAURICIO SERRANO is a 70 year old F, referred to Physical Therapy by Out of Town Doctor, ERENDIRA HERNANDEZ, with a diagnosis of L Knee TKA. Date of Evaluation: 08/11/15 Physical Therapist: Bolivar Newell - Visit Plan Frequency: 3x /Week Duration: 4-6 Weeks - Subjective Subjective: 2 days ago had L TKA at [facility] by Dr. Salazar. Had bone on bone [...] for shoes but takes time. Has a sox analyst to get socks and pick things up [...] Medicare and Medicare HMO plans, please review th e plan of care and approve it. It will need to be FAXED BACK to us at [phone] for Medicare purposes. Please let me know if there are questions or concerns regarding this plan of care. Conrad matos Signature: Date: <Electronically signed by Bolivar Newell DPT, OCS, CSCS> 08/12/15 0642 CC: SARATH HERNANDEZ; Micki shea MD; OUT OF TOWN DOCTOR EBG Signed For Medicare only, by signing this I certify the plan of care. Physicians Signature Date 12-Jul-2015 ELECTROCARDIOGRAM, COMPLETE (ECG) (03813) Comments: sinus rhythm within normal limits Result: [MEASUREMENTS ANALYSIS] Date of Test: 07/12/2015 13:50:06; Heart Rate: 72; WA Interval: 146; QRS: 90; QT Interval: 392; Corrected QT Interval (QTc): 413; P Wave [place]: 47; QRS Wave [place]: 20; T Wave [place]: 51; Blood Pressure: 122/80 [ECG DIAGNOSTIC STATEMENTS] Date of Test: 07/12/2015 13:50:06; Summary: Sinus Rhythm WITHIN NORMAL LIMITS 30-Jun-2015 Abdomen/Pelvis without Cont Result: Comments: See Note; NOTES: [facility] Imaging Services [address] [place] [address] Verdana 4d Abdomen/Pelvis without Cont MR#: [id number] Acct: [id number] Name: MAURICIO SERRANO Rep #: [id number] : 1945 F 69 From: Bella Meade MD PCP: Micki Cruz MD Status: REG CLI Study: Abdomen/Pelvis without Cont Date of Exam: 06/30/15 Exam# [id number] Alexia england Dr: Serena Quiñonez STUDY: CT [...] at 10:49 EST Tel , Service support [phone], CC: Sreena Quiñonez; Micki Cruz MD Manager Mechanical: Signed 17-Feb-2015 Abdomen/Pelvis WITH Contrast Result: Comments: See Note; NOTES: [facility] Imaging Services [address] [place] [address] CAT Scan Report MR#: [id number] Acct: [id number] Name: MAURICIO SERRANO Rep #: [id number] : 1945 F 69 From: Gerald Persaud DO PCP: Micki Cruz MD Status: REG CLI Study: Abdomen/Pelvis WITH Contrast Date of Exam: 02/17/15 Exam# [id number] Ordering Dr: Micki Cruz MD [facility] DY: CT ABDOMEN AND PELVIS WITH CONTRAST [...] at 19:10 EDT Tel , Service support [phone], CC: Micki Cruz MD Manager Mechanical: Signed 02-Nov-2014 Chest WITH Contrast Result: Comments: See Note; NOTES: [facility] Imaging Services [address] [place] [address] CAT Scan Report MR#: [id number] Acct: [id number] Name: MAURICIO SERRANO Rep #: [id number] : 1945 F 69 From: Michael Noland MD PCP: Micki Cruz MD Status: REG CLI Study: Chest WITH Contrast Date of Exam: 11/02/14 Exam# [id number] Ordering Dr: Serena Quiñonez STUDY: CTA CHEST [...] Michael Noland MD at 15:54 EDT Tel [phone], Service support [phone], CC: Serena Quiñonez; Micki Cruz MD Manager Mechanical: Signed 15-Mar-2014 Toe(s) Min 2 Views Result: Comments: See Note; NOTES: [facility] Imaging Services [address] [place] [address] Radiology Report MR#: [id number] Acct: [id number] Name: MAURICIO SERRANO Rep #: [id number] : 1945 F 68 From: Romaine Tafoya DO PCP: Micki Cruz MD Status: REG CLI Study: Toe(s) Min 2 Views Date of Exam: 03/15/14 Exam# [id number] Ordering Dr: Serena Quiñonez STUDY: X-RAY LEFT [...] Tafoya DO 2 at 16:54 EDT Tel [phone], Service support [phone], RAD/Toe(s) Min 2 Views IMPRESSION: No acute abnormality of the left second toe. Electron ically Signed: Romaine Tafoya DO at 16:54 EDT Tel [phone], Service support [phone], CC: Serena Quiñonez; Micki Cruz MD Manager Mechanical: Signed 15-Feb-2014 Spine Cervical without Contras Result: Comments: See Note; NOTES: [facility] Imaging Services [address] [place] [address] CAT Scan Report MR#: [id number] Acct: [id number] Name: MAURICIO SERRANO Rep #: [id number] : 1945 F 68 From: Michael Noland MD PCP: Micki Cruz MD Status: REG CLI Study: Spine Cervical without Contras Date of Exam: 02/15/14 Exam# [id number] Ordering Dr: Micki Cruz MD STUDY: CT [...] Noland MD at 14:08 E DT Tel [phone], Service support [phone], CC: Micki Cruz MD Manager Mechanical: Signed 11-Feb-2014 Cerv Spine 4 or 5 Views Result: Comments: See Note; NOTES: [facility] Imaging Services [address] [place] [address] Radiology Report MR#: [id number] Acct: [id number] Name: MAURICIO SERRANO Rep #: [id number] : 1945 F 68 From: Julio Charles DO PCP: Micki Cruz MD Status: REG CLI Study: Cerv Spine 4 or 5 Views Date of Exam: 02/11/14 Exam# [id number] Ordering Dr: Serena Quiñonez STUDY: X-RAY - [...] Charles DO at 19 :48 EDT Tel [phone], Service support [phone], CC: Serena Cruz MD Manager Mechanical: Signed 09-Oct-2013 Knee 4 or More Views Result: Comments: See Note; NOTES: [facility] Imaging Services [address] [place] [address] Radiology Report MR#: [id number] Acct: [id number] Name: MAURICIO SERRANO Rep #: [id number] : 1945 F 68 From: Romaine Tafoya DO PCP: Micki Cruz MD Status: REG CLI Study: Knee 4 or More Views Date of Exam: 10/09/13 Exam# [id number] Ordering Dr: Serena Quiñonez STUDY: X-RAY - [...] Romaine Tafoya DO at 19:01 EDT Tel [phone], Service support [phone], CC: Serena Cruz MD Manager Mechanical: Signed 03-Sep-2013 Hepatobilliary Imaging Result: Comments: See Note; NOTES: [facility] Imaging Services [address] [place] [address] Nuclear Medicine Report MR#: [id number] Acct: [id number] Name: MAURICIO SERRANO Rep #: [id number] : 1945 F 68 From: Gene Diallo DO PCP: iMcki Cruz MD Status: REG CLI Study: Hepatobilliary Imaging Date of Exam: 09/03/13 Exam# [id number] Ordering Dr: Catalina Daly DO CLINICAL: 68-year-old [...] M.D. at 7:07 EST , Service support [phone], Fa x [phone] CLINICAL: 68-year-old female with reported history of [...] CC: Micki Cruz MD; Catalina Daly DO Manager Mechanical: Signed 27-Aug-2013 Gallbladder Result: Comments: See Note; NOTES: [facility] Imaging Services [address] [place] [address] Ultrasound Report MR#: [id number] Acct: [id number] Name: MAURICIO SERRANO Rep #: [id number] : 1945 F 68 From: Michael Noland MD PCP: Micki Cruz MD Status: REG CLI Study: Gallbladder Date of Exam: 08/27/13 Exam# [id number] Ordering Dr: Catalina Daly DO STUDY: AB [...] M.D. at 10:31 EST , Service support [phone], CC: Micki Cruz MD; Catalina Daly DO Manager Mechanical: Signed Family History Unknown Family Member Name [...] kg/m2 Body Surface Area Calculated 1.98 m2 92-Ldw-862771:53 Temperature 97.8 f Pulse 75 /min Comments: [...] kg/m2 Body Surface Area Calculated 2.05 m2 20-Ibb-318904:12 Temperature 97.8 f Comments: Method: Temporal Pulse [...] kg/m2 Body Surface Area Calculated 2.11 m2 98-Fbm-879754:58 Temperature 97.9 f Comments: Method: Oral Pulse [...] kg/m2 Body Surface Area Calculated 1.9 m2 88-Ndl-590734:15 Temperature 98.3 f Comments: Method: Oral Pulse [...] 0.00 cm Results Date Description Value Details 52-Fgh-948987:28 Metabolic Panel, Comprehensive Comments: Jan 2017; PATIENT NOT FASTINGPERFORMED BY: [facility]CoSaint [facility] at SussexZgybff5472 [facility] [id number] (68464) ALT (SGPT) 14 [iU]/L (Normal) Range: 0-32 [...] Glucose, Serum 77 mg/dL (Normal) Range: 65-99 78-Koz-278477:28 CALCIFEDIOL (09667) Comments: Jan 2017; PATIENT NOT FASTINGPERFORMED BY: [employer]6370 [facility] [id number] Vitamin D, 25-Hydroxy 33.0 ng/mL (Normal) Range: 30.0-100.0 Comments: Vitamin D deficiency has been defined by the [facility] of[facility]. [facility] Hospital[facility] and an Endocrine Society practice guideline as alevel of serum 25-OH vitamin D less than 20 ng/mL (1,2).The Endocrine Society went on to further define vitamin Dinsufficiency as a level between 21 and 29 ng/mL (2).1. IOM (Has[employer] of Medicine). 2010. Dietary reference intakes for calcium and D. [place]: The National Academies Press.2. Miki MF, Jamie NC, Cata VEGA, et al. Evaluation, treatment, and prevention of vitamin D deficiency: an Endocrine Society clinical practice guideline. JCEM. 2010; 96(7):1911-30. 33-Lwg-801401:21 C-REACTIVE PROTEIN (11497) Comments: PATIENT NOT FASTINGPERFORMED BY: CB [facility] Gywfsa1202 [place] [id number] C-Reactive Protein, Quant 6.7 mg/L (Abnormal) Range: 0.0-4.9 43-Bdo-180914:21 SED RATE ERYTHROCYTE (98651) Comments: PATIENT NOT FASTINGPERFORMED BY: VCV Dqfhgk0586 [facility] [id number] Sedimentation Rate-Westergren 5 mm/h (Normal) Range: 0-40 32-Kcr-314991:21 METABOLIC PANEL, COMPREHENSIVE Comments: PATIENT NOT FASTINGPERFORMED BY: VCV Jbpzza3221 [facility] [id number] (26933) ALT (SGPT) 12 [iU]/L (Normal) Range: 0-32 [...] Glucose, Serum 69 mg/dL (Normal) Range: 65-99 24-Qlj-263548:21 CBC, PLATELETS & AUT DIFF Comments: PATIENT NOT FASTINGPERFORMED BY: [employer]6370 [facility] [id number] (29178) Immature Grans (Abs) 0.0 {x10E3/uL} (Normal) Range: [...] (Normal) Range: 3.4-10.8 :08 T4, FREE (THYROXINE) (13908) Comments: PATIENT NOT FASTINGPERFORMED BY: VCVSaint [facility] at SussexHwmrrt4467 [facility] [id number] T4,Free(Direct) 1.31 ng/dL (Normal) Range: 0.82-1.77 :08 T3, FREE (TRIDOTHYRONINE) (36401) Comments: PATIENT NOT FASTINGPERFORMED BY: VCVAdvanced Care Hospital of Southern New MexicoMoxmmv9885 [facility] [id number] Triiodothyronine,Free,Serum 2.2 pg/mL (Normal) Range: 2.0-4.4 :08 TSH (68430) Comments: PATIENT NOT FASTINGPERFORMED BY: LabCoSaint [facility] at SussexYymygp7856 [facility] [id number] TSH 3.520 {uIU/mL} (Normal) Range: 0.450-4.500 06-Vbt-136719:28 Metabolic Panel, Comprehensive Comments: PATIENT NOT FASTINGPERFORMED BY: LabScheurer Hospital6370 [facility] [id number] (12348) ALT (SGPT) 15 [iU]/L (Normal) Range: 0-32 [...] Glucose, Serum 93 mg/dL (Normal) Range: 65-99 49-Zvf-809534:28 CBC, Platelets & Auto Diff Comments: PATIENT NOT FASTINGPERFORMED BY: LabCoSaint [facility] Hospital at SussexJnivhf3370 [facility] [id number] (90303) Immature Grans (Abs) 0.0 {x10E3/uL} (Normal) Range: [...] 3.77-5.28 WBC 6.8 {x10E3/uL} (Normal) Range: 3.4-10.8 86-Ufb-752594:28 TSH (07680) Comments: PATIENT NOT FASTINGPERFORMED BY: [facility] Ujwcdp8418 [facility] [id number] TSH 0.034 {uIU/mL} (Abnormal) Range: 0.450-4.500 42-Nrm-324479:40 CBC W/Diff, Automated Comments: [facility] [address] [place], [place], [id number] Absolute Lymph 2.31 {X10_3/ul} (Normal) Range: 0.83-4.51 [...] 4.2-5.4 WBC 8.7 K/mm3 (Normal) Range: 4.4-11.0 31-Rav-541230:40 Comprehensive Metabolic Profil Comments: [facility] [address] [place], [place], [id number] GAP 7 (Normal) Range: 5-15 CO2 29.0 [...] 7-18 GLU 106 mg/dL (Normal) Range: 70-110 83-Wbc-550967:07 URINE BECKY CULTURE-IDENTIFICATN Comments: PATIENT NOT FASTINGPERFORMED BY: [facility] Yckrgp8002 [facility] [id number] ([id number]) Result 1 CNSNSS (Abnormal) Comments: Coagulase negative [...] S Urine Final report Culture,Comprehens (Abnormal) svetlana 06-Nwa-033750:07 Metabolic Panel, Comprehensive Comments: PATIENT NOT FASTINGPERFORMED BY: [facility]6370 [facility] [id number] (33128) ALT (SGPT) 14 [iU]/L (Normal) Range: 0-32 [...] Glucose, Serum 76 mg/dL (Normal) Range: 65-99 88-Qmt-830114:07 CBC, Platelets & Auto Comments: PATIENT NOT FASTINGPERFORMED BY: [facility]6370 [facility] [id number] Information: [id number], [id number] Diff (27008) Immature Grans (Abs) 0.0 {x10E3/uL} (Normal) Range: [...] 3.77-5.28 WBC 8.1 {x10E3/uL} (Normal) Range: 3.4-10.8 27-Djn-219079:07 PT (Prothrobim Time) (91632) Comments: PATIENT NOT FASTINGPERFORMED BY: [facility] SussexQgwgxn1822 [facility] [id number] Prothrombin Time 10.4 {sec} (Normal) Range: 9.1-12.0 INR 1.0 (Normal) Range: 0.8-1.2 Comments: Reference interval is for non-anticoagulated patients. . Suggested INR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 Request TSH ([id number])Indication: Syncope On: 39-Bos-797669:26 Request METABOLIC PANEL, COMPREHENSIVE ([id number])Indication: Syncope On: 69-Ufq-019954:26 Request CBC (AUTO) ([id number])Indication: Syncope On: 98-Rux-435816:26 Request Planned Procedures Aerosol Treatment ([id number])By: On: 10-Jan-2018 Intent Serena Quiñonez CNP, CNP, Mary E SCREENING DIGITAL TOMOSYNTHESIS On: 02-Nov-2016 Intent OF BREAST ([id number])By: Serena Quiñonez CNP, CNP, Mary E DEXA SCAN AXIAL SKELETON On: 02-Nov-2016 Intent ([id number])By: Serena Quiñonez CNP, CNP, Mary E Radiology - ChestBy: Olamide MARTINEZ, On: 17-Aug-2016 Intent Serena Leblanc CNP Comments: Doretha Quiñonez Solu -Medrol Injection, 125 mg On: 17-Aug-2016 Intent ([id number])By: Olamide MARTINEZ BrenYonathan Quiñonez CNP Bren Solu -Medrol Injection, 125 mg On: 17-Aug-2016 Intent ([id number])By: Olamide MARTINEZ Bren Comments: Lot:[id number]:11/2018Dose:125mgRoute:im Site:r [facility] By:ALEN signed Olamide MARTINEZ Bren Aerosol Treatment ([id number])By: On: 17-Aug-2016 Intent Olamide MARTINEZ BrenYonathan Quiñonez CNP Bren MAMMOGRAM, SCREENING, BOTH BREAST On: 13-Jul-2016 Intent ([id number])By: Olamide MARTINEZ BrenYonathan Quiñonez CNP Bren DEXA SCAN AXIAL SKELETON On: 13-Jul-2016 Intent ([id number])By: Olamide MARTINEZ BrenYonathan Quiñonez CNP Bren CT - Abdomen & Pelvis Stone On: 29-Jun-2015 Intent ProtocolBy: Olamide MARTINEZ BrenYonathan Quiñonez CNP Bren CT - Abdomen & PelvisBy: Nancy [...] 02-Nov-2014 Intent E Olamide MARTINEZ Bren EKG ([id number])By: Serena Quiñonez CNP On: 02-Nov-2014 Intent Olamide MARTINEZ Bren Comments: sinus rhythm similar to 09-28-2011 Radiology - Toe(s) - LeftBy: On: 15-Mar-2014 Intent Olamide MARTINEZ BrenYonathan Quiñonez CNP Bren CT - NeckBy: Serena Quiñonez CNP On: 15-Feb-2014 Intent Serena Quiñonez CNP Comments: cervical spine CT - NeckBy: Micki Cruz MD On: 15-Feb-2014 Intent Comments: STAT STAT STAT STATCALL WET READATTN TO ODONTOID Radiology - Cervical SpineBy: On: 11-Feb-2014 Intent Serena Quiñonez CNP, CNP, Mary Comments: send resuts to Kyle [...] ([id number])By: Nancy GIPSON, Micki Wright Aerosol Treatment ([id number])By: On: 29-Sep-2012 Intent Serena Quiñonez CNP, CNP, Mary E Toradol Injection, 30 mg On: 30-Apr-2012 Intent ([id number])By: Serena Quiñonez CNP, CNP, Mary E ELECTROCARDIOGRAM, COMPLETE (ECG) On: 28-Sep-2011 Intent ([id number])By: Serena Quiñonez CNP Comments: sinus rhythm Serena Quiñonez CNP Bio Z ([id number])By: Serena Quiñonez CNP On: 28-Sep-2011 Intent E Serena Quiñonez CNP Comments: with in normal PHYSICAL THERAPY EVALUATION On: 02-Jan-2011 Intent ([id number])By: Serena Quiñonez CNP, CNP, Mary E MRI - Knee(s) - LeftBy: Olamide On: 02-Jan-2011 Intent Serena MARTINEZ CNP, Mary E Nuclear Stress Test/Stress On: 21-Aug-2010 Intent SPECT/AdenosineBy: Serena Quiñonez CNP, CNP, Mary E EKG ([id number])By: Serena Quiñonez CNP On: 21-Aug-2010 Intent Serena Quiñonez CNP PHYSICAL THERAPY EVALUATION On: 08-Aug-2010 Intent ([id number])By: Serena Quiñonez CNP, CNP, Mary E Radiology - Knee - LeftBy: Ciesa On: 08-Aug-2010 Intent Serena MARTIENZ CNP, Mary E Radiology - Knee - Left - Weight On: 08-Aug-2010 Intent BearingBy: Serena Quiñonez CNP, CNP, Mary E CT - Chest (IV Contrast On: 06-Dec-2009 Intent Needed)By: Olamide Serena MARTINEZ Comments: stat BrandiSerena dumont CNP Doppler Ultrasound OtherBy: Olamide On: 05-Dec-2009 Intent Serena MARTINEZ CNP, Mary E Comments: 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 yeyo jules in [place] and Dr. 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 CT - Chest (IV Contrast On: 26-Feb-2008 Intent Needed)By: Serena Quiñonez CNP Comments: PE protocolstatSTAT CT shows PE to be admitted Serena Quiñonez CNP Solu -Medrol Injection, 125 mg On: 26-Feb-2008 Intent ([id number])By: Serena Quiñonez CNP Comments: waiver signedAmt: 2mlLot: [id number]: 09/2010Route: IMSite: right hipTolerated: wellGiven By: RADAMES Ta CNP, Mary E Inhaler Demonstration ([id number])By: On: 26-Feb-2008 Intent Olamide MARTINEZ BrenYonathan Quiñonez CNP Bren Aerosol Treatment ([id number])By: On: 26-Feb-2008 Intent Serena Quiñonez CNP, CNP Serena Comments: done E Venous Doppler - RightBy: Nancy On: 27-Nov-2007 Intent Micki GIPSON Comments: leg 2 weeks DXA, BONE DENSITY, AXIAL SKELETON On: 06-Nov-2007 Intent ([id number])By: Micki Cruz MD Comments: estrogen deficient MAMMOGRAM, SCREENING, BOTH On: 06-Nov-2007 Intent BREASTS ([id number])By: Micki Cruz MD Pulse Oximetry ([id number])By: On: 06-Nov-2007 Intent RAMA Webster Pulse Oximetry ([id number])By: Alex On: 24-Sep-2007 Intent Dana Comments: 98% Aerosol Treatment ([id number])By: On: 05-Aug-2007 Intent Olamide MARTINEZ BrenYonathan Quiñonez CNP Bren Spirometry ([id number])By: Nancy On: 27-May-[address] - Brain/HeadBy: Nancy GIPSON, On: 22-Mar-2006 Tere Wright Planned Medications INJECTION, KETOROLAC TROMETHAMINE, PER 15 MG Ordered: 30-Apr-2012 Pending Serena Quiñonez CNP, CNP Bren INJECTION, METHYLPREDNISOLONE SODIUM SUCCINATE, UP TO 125 MG Ordered: 17-Aug-2016 Pending Serena Quiñonez CNPshanamichelle MARTINEZ Bren INJECTION, METHYLPREDNISOLONE SODIUM SUCCINATE, UP TO 125 [...] TSH : DISCONTINUED - T4, FREE (THYROXINE) ([id number]) Indication: Abnormal TSH Abnormal TSH : DISCONTINUED - T3, FREE (TRIDOTHYRONINE) ([id number]) Indication: Abnormal TSH Abnormal TSH : DISCONTINUED - TSH (THYROID STIMULATING HORMONE) ([id number]) Indication: Abnormal TSH Encounter for screening for [...] NOS : DISCONTINUED - HEPATIC FUNCTION PANEL ([id number]) Indication: FUNGUS, NOS Hypertension : DISCONTINUED - TSH (11040) Indication: Hypertension GERD (gastroesophageal reflux disease) : [...] Instructions Indication: Epigastric Pain Encounters Annotation/Addendum On: 07-May-2018 8:30 Encounter Diagnosis: Rash of body End: 07-May-2018 9:04 [facility] Annotation/Addendum On: 09-Apr-2018 12:08 Encounter Diagnosis: Skin [...] REASON] Grief - Husbands recent. Encounter Diagnosis: Erasto, End: 10-Jan-2018 9:06 Nonsmoker, BMI 37.0-37.9, adult, Anxiety, Wheezing (786.07), History of blood clots, Right leg swelling [facility] Office Visit On: 30-Dec-2017 10:35 Encounter Reason: Anxiety - Symptoms include anxiety and fatigue. Onset was 6 month(s) ago. Associated symptoms include chest pain. 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 He is not doing well and [...] The patient does have durable power of state attorney and living will. The patient has [...] For Left Knee replacement Dr. Hernandez in [place] Aug 09, 2015. When pt had Rt [...] (obesity ). 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
--- OUTSIDE RECORDS SUMMARY | 2018-07-24 21:19 | XMS RPT_ITS | Continuity of Care Document ---
:1945 External Reference #:[id number] Author Organization [facility] Address [address] [facility] [address] [place] [address] Phone Care Team Providers Name Role Phone Serena Quiñonez CNP Unavailable Anette Connolly Unavailable Dr. Acosta Talbot Unavailable Michael Duncan Unavailable Logan El DO Unavailable Slarb NETWORK FIREWALL ENGINEER, Cheryle Unavailable Unavailable Long NETWORK FIREWALL ENGINEER, Kalie L Unavailable Unavailable long, yuko Unavailable [...] 715.90) Comments: stable on gabapentin seen at [facility] arthritis neck arthritis and knee pain , has seen Dr. Coughlin for neck pain for injectionwas seen at [facility] arthritis given gabapentinwas taking melox icam daily [...] Oral Tablet 1 (one) Tablet bid for 30 days Quantity: 60 {Tablet} Refills: 3 Ordered:09-May-2018 Olamide MARTINEZ, Serena Patton CNP, Serena Mcmanus Start : 09-May-2018 Active Calcium 500 + D 500-125 MG-UNIT Oral Tablet 1 (one) Tablet Tablet daily for 0 days Quantity: 30 {Tablet} Refills: 0 Ordered:16-Oct-2017 Slarb Cheryle CRUM Start : 16-Nov-2016 Active LORazepam 1 MG Oral Tablet 1 (one) Tablet daily prn ONLY for 0 days Quantity: 30 {Tablet} Refills: 0 Ordered:08-Apr-2018 Olamide MARTINEZ, Serena Patton CNP, Serena Mcmanus Start : 08-Apr-2018 Active Comments:OARRS agdelumpV21.9f43.21Thirty Losartan Potassium 50 MG Oral Tablet 1 [...] Quantity: 2 {Tablet} Refills: 1 Ordered:10-Jan-2018 Long NETWORK FIREWALL ENGINEERKalie Start : 10-Jan-2018 Active ALEVE, 220MG (Oral [...] 27-Jun-2015 End : 04-Jul-2015 Inactive CITRACAL/VITAMIN D, 500-059OW-SILP (Oral Tablet) 2 QD for 0 days Refills: 0 Ordered:03-Oct-2011 Abby Jones LPN End : 03-Oct-2011 Inactive CLARINEX REDITABS, 5MG (Oral Tablet Dispersible) 1 (one) Tablet Disperse daily for 0 days Quantity: 5 {Tablet_Disperse} Refills: 0 Ordered:06-Jul-2010 RAMA Webster Start : 05-Dec-2009 End : 06-Jul-2010 Inactive CORTISPORIN, 3.5-18295-0 (Otic Solution) 4 Solution Solution tid for [...] Quantity: 30 {Tablet} Refills: 0 Ordered:18-Nov-2015 Olamide NEUROPHYSIOLOGIST, Serena Patton NEUROPHYSIOLOGIST, Serena Mcmanus Start : 14-Oct-2015 End : 13-Nov-2015 Inactive LEVAQUIN, 500MG (Oral Tablet) 1 Tablet daily for 10 days Quantity: 10 {Tablet} Refills: 0 Ordered:01-Oct-2012 Olamide NEUROPHYSIOLOGIST, Serena Patton CNP, Serena Mcmanus Start : [...] : 08-Aug-2010 End : 28-Sep-2011 Inactive NYSTOP, 838948EFMZ/GM (External Powder) Powder take as directed for [...] : 20-Jun-2012 Discontinued Comments:This order discontinued per [facility]. OXYCODONE HCL, 5MG (Oral Tablet) 1 (one) [...] Quantity: 30 {Capsule} Refills: 6 Ordered:15-Dec-2014 Slarb NETWORK FIREWALL ENGINEER, Cheryle Start : 20-Feb-2013 End : 15-Dec-2014 Discontinued TESSALON PERLES, 100MG (Oral Capsule) 1 (one) Capsule tid for 0 days Quantity: 30 {Capsule} Refills: 0 Ordered:11-Aug-2007 Dana Johnson Start : 11-Aug-2007 End : 06-Nov-2007 Discontinued TOPICORT, 0.25% (External Cream) 1 (one) Cream bid for 0 days Quantity: 1 {Tube} Refills: 0 Ordered:02-Nov-2014 Slarb NETWORK FIREWALL ENGINEER, Cheryle Start : 30-Jun-2014 End : 02-Nov-2014 Discontinued TYLENOL WITH CODEINE #3, 300-30MG (Oral Tablet) 1 (one) Tablet q6-8 hrs prn for 0 days Quantity: 30 {Tablet} Refills: 0 Ordered:27-Jun-2015 Slarb NETWORK FIREWALL ENGINEER, Cheryle Start : 11-Mar-2015 End : 27-Jun-2015 Discontinued TYLENOL, 325MG (Oral Tablet) 1 PRN for 0 days Refills: 0 Ordered:27-Jun-2015 Slarb NETWORK FIREWALL ENGINEER, Cheryle Start : 02-Mar-2015 End : 27-Jun-2015 [...] (M79.609, 729.5) Status: Inactive as of 24-May-2014 [facility] (current) use of anticoagulants (Z79.01, V58.61) Status: [...] Study (HP) Result: Comments: See Note; NOTES: [facility] Imaging Services [address] [place] [address] Verdana 4d Dexa Bone Density Study (HP) MR#: [id number] Acct: [id number] Name: EVENS SERRANO Germaine Rep #: [id number] : 1945 F 71 From: Michael Noland MD PCP: Serena Quiñonez Status: REG CLI Study: Dexa Bone Density Study (HP) Date of Exam: 11/13/16 Exam# [id number] Ordering Dr: Kyle Quiñonez STUDY: DUAL ENERGY [...] Michael Noland MD at 7:57 EDT Tel [phone], Service support , CC: Serena Quiñonez Residential Care Facility Manager: Signed 13-Nov-2016 SCREENING MAMM (CAD), BILAT Result: Comments: See Note; NOTES: [facility] Imaging Services [address] [place] [address] Verdana 4d SCREENING MAMM (CAD), BILAT MR#: [id number] Acct: [id number] Name: TRINI SERRANO Rep #: [id number] : 1945 F 71 From: Michael Noland MD PCP: Serena Quiñonez Status: REG CLI Study: SCREENING MAMM (CAD), BILAT Date of Exam: 11/13/16 Exam# [id number] Ordering Dr: Yudith Quiñonez MAMMOGRAPHY - BILATERAL [...] y biopsy of a clinically suspicious abnormality. [id number] Electronically Signed: Michael Noland MD at 8:11 EDT Tel [phone], Service support , CC: Serena Quiñonez Residential Care Facility Manager: Signed 17-Aug-2016 Chest PA and Lateral Result: Comments: See Note; NOTES: [facility] Imaging Services [address] [place] [address] Verdana 4d Chest PA and Lateral MR#: [id number] Acct: [id number] Name: MAURICIO SERRANO p #: [id number] : 1945 F 71 From: Michael Noland MD PCP: Micki Cruz MD Status: REG CLI Study: Chest PA and Lateral Date of Exam: 08/17/16 Exam# [id number] Ordering Dr: Serena Quiñonez STUDY: X-RAY CHEST [...] Michael Noland MD at 14:44 EST Tel [phone], Service support [phone], CC: Serena Quiñonez; Micki Cruz MD Residential Care Facility Manager: Signed 03-Oct-2015 PT D/C Summary (1) Result: Comments: See Note; NOTES: [facility] [address] [place] [address] Fax REHABILITATION SE RVICES DISCHARGE SUMMARY MR#: [id number] Acct: [id number] Name: MAURICIO SERRANO Rep #: [id number] : 1945 70 From: Bolivar Newell DPT, OCS, CSCS Referring Dr.: OUT [facility] DOCTOR Status: REG RCR Eval Date: Discharge Date: HP - PT D/C Summary It has been my pleasure to treat MAURICIO SERRANO under orders from [facility] Doctor, SARATH HERNANDEZ for the diagnosis of [...] please feel free to call me at [phone]. Thank you for the referral of this patient. Sincerely, Bolivar Newell <Electronically signed by Bolivar Newell DPT, OCS, CSCS> 10/14 0646 CC: SARATH HRENANDEZ; Micki Cruz MD; OUT OF TOWN DOCTOR EBG Signed 09-Sep-2015 Re-Evaluation - PT (1) Result: Comments: See Note; NOTES: [facility] [address] [place], [place] [address] Fax REEVALUATION / ME DICARE RECERTIFICATION [place] 4d PHYSICAL THERAPY MR#: [id number] Acct: [id number] Name: MAURICIO SERRANO Rep #: [id number] : 1945 70 From: Bolivar Newell DPT, OCS, CSCS Referring DrPaxton: SHAHNAZ [facility] DOCTOR Status: REG R Insurance: [employer] Out of [facility] Doctor, SARATH HERNANDEZ It has been my [...] do not hesitate to contact me at [phone] by phone or if you have questions [...] Discharge Instruction Result: Comments: See Note; NOTES: [facility] Medical Records Department [address] [place] [address] Discharge Instruction 08/14/152021 MR#: [id number] Acct: [id number] Name: MAURICIO SERRANO Rep #: [id number] : 1945 70 From: Logan Keen MD PCP: Micki Cruz MD Status: DEP ER ED Disposition - Plan for ED Patient: Chief Complaint: Lower Extremity Injury Instructions: ED Dyspnea What to do if you have Problems For any increased pain, shortness of breath, bleeding, nausea or vomiting, chest pain, or any unexpected problems, contact your do ctor. Call [facility] ([phone]) or report to the closest Emergency Room. Call 911 if necessary. 08/18/15 0746 <Electronically signed by Logan Keen MD> Date ____ Logan Keen MD Cosigner Signature (If Indicated): Date CC: Micki Cruz MD 18-Aug-2015 Emergency Department Summary Result: Comments: See Note; NOTES: [facility] Medical Records Department [address] [place] [address] Emergency Department Summary MR#: [id number] Acct: [id number] Name: MAURICIO SERRANO Rep #: [id number] : 1945 70 From: Logan Keen MD PCP: Micki Cruz MD Status: DEP ER DATE OF SERVICE: 08/14/2015 CHIEF COMPLAINT: Shortness of breath, leg swelling. HISTORY OF PRESENT ILLNESS: A 70-year-old female who is 5 days status post left total knee repair done at [facility], presents with shortness of breath and leg [...] Discharge. Logan Keen MD T: NTS JOB: [id number] 08/18/15 0746 <Electronically signed by Logan stovall MD> Date Logan Keen MD Cosigner Signature (If Indicated): Date CC: Micki christine MD Date Dictated: 02/14/16 2022 Date Transcribed: 08/14/152021 Residential Care Facility Manager: Signed 14-Aug-2015 CTA Chest W/WO Contrast Result: Comments: See Note; NOTES: [facility] Imaging Services [address] [place] [address] Verdana 4d CTA Chest W/WO Contrast MR#: [id number] Acct: [id number] Name: MAURICIO DORAN Rep #: [id number] : 1945 F 70 From: Sandy Lundberg MD PCP: Micki Cruz MD Status: REG ER Study: CTA Chest W/WO Contrast Date of Exam: 08/14/15 Exam# [id number] Ordering Dr: Logan Velasquez MD STUDY: CTA [...] MD at 20:03 EST , Service support [phone], CC: Germaine Cruz MD; Logan Keen MD Residential Care Facility Manager: Signed 12-Aug-2015 Inital Evaluation (1) - PT Result: Comments: See Note; NOTES: [facility] [address] [place], [place] [address] Fax REHABILITATION SE RVICES INITIAL EVALUATION MR#: [id number] Acct: [id number] Name: MAURICIO SERRANO Rep #: [id number] : 1945 70 From: Bolivar Newell DPT, OCS, CSCS Referring Dr.: OUT OF TOWN DOCTOR Status: REG RCR Insurance: [employer] Date: Patient's Visit Information MAURICIO SERRANO is a 70 year old F, referred to Physical Therapy by Out of Town Doctor, ERENDIRA HERNANDEZ, with a diagnosis of L Knee TKA. Date of Evaluation: 08/11/15 Physical Therapist: Bolivar Newell - Visit Plan Frequency: 3x /Week Duration: 4-6 Weeks - Subjective Subjective: 2 days ago had L TKA at [facility] by Dr. Salazar. Had bone on bone [...] for shoes but takes time. Has a auto technician mechanic to get socks and pick things up [...] to be FAXED BACK to us at [phone] for Medicare purposes. Please let me know if there are questions or concerns regarding this plan of care. Conrad matos Signature: Date: <Electronically signed by Bolivar Newell DPT, OCS, CSCS> 08/12/15 0642 CC: SARATH HERNANDEZ; Micki shea MD; OUT OF TOWN DOCTOR EBG Signed For Medicare only, by signing this I certify the plan of care. Physicians Signature Date 12-Jul-2015 ELECTROCARDIOGRAM, COMPLETE (ECG) (95414) Comments: sinus rhythm within normal limits Result: [MEASUREMENTS ANALYSIS] Date of Test: 07/12/2015 13:50:06; Heart Rate: 72; UT Interval: 146; QRS: 90; QT Interval: 392; Corrected QT Interval (QTc): 413; P Wave [place]: 47; QRS Wave [place]: 20; T Wave [place]: 51; Blood Pressure: 122/80 [ECG DIAGNOSTIC STATEMENTS] Date of Test: 07/12/2015 13:50:06; Summary: Sinus Rhythm WITHIN NORMAL LIMITS 30-Jun-2015 Abdomen/Pelvis without Cont Result: Comments: See Note; NOTES: [facility] Imaging Services [address] [place] [address] Verdana 4d Abdomen/Pelvis without Cont MR#: [id number] Acct: [id number] Name: MAURICIO SERRANO Rep #: [id number] : 1945 F 69 From: Bella Meade MD PCP: Micki Cruz MD Status: REG CLI Study: Abdomen/Pelvis without Cont Date of Exam: 06/30/15 Exam# [id number] Alexia england Dr: Serena Quiñonez STUDY: CT [...] at 10:49 EST Tel , Service support [phone], CC: Serena Quiñonez; Micki Cruz MD Residential Care Facility Manager: Signed 17-Feb-2015 Abdomen/Pelvis WITH Contrast Result: Comments: See Note; NOTES: [facility] Imaging Services [address] [place] [address] CAT Scan Report MR#: [id number] Acct: [id number] Name: MAURICIO SERRANO Rep #: [id number] : 1945 F 69 From: Gerald Persaud DO PCP: Micki Cruz MD Status: REG CLI Study: Abdomen/Pelvis WITH Contrast Date of Exam: 02/17/15 Exam# [id number] Ordering Dr: Micki Cruz MD [facility] DY: CT ABDOMEN AND PELVIS [...] at 19:10 EDT Tel , Service support [phone], CC: Micki Cruz MD Residential Care Facility Manager: Signed 02-Nov-2014 Chest WITH Contrast Result: Comments: See Note; NOTES: [facility] Imaging Services [address] [place] [address] CAT Scan Report MR#: [id number] Acct: [id number] Name: MAURICIO SERRANO Rep #: [id number] : 1945 F 69 From: Michael Noland MD PCP: Micki Cruz MD Status: REG CLI Study: Chest WITH Contrast Date of Exam: 11/02/14 Exam# [id number] Ordering Dr: Serena Quiñonez STUDY: CTA CHEST [...] Michael Noland MD at 15:54 EDT Tel [phone], Service support [phone], CC: Serena Quiñonez; Micki Cruz MD Residential Care Facility Manager: Signed 15-Mar-2014 Toe(s) Min 2 Views Result: Comments: See Note; NOTES: [facility] Imaging Services [address] [place] [address] Radiology Report MR#: [id number] Acct: [id number] Name: MAURICIO SERRANO Rep #: [id number] : 1945 F 68 From: Romaine Tafoya DO PCP: Micki Cruz MD Status: REG CLI Study: Toe(s) Min 2 Views Date of Exam: 03/15/14 Exam# [id number] Ordering Dr: Serena Quiñonez STUDY: X-RAY LEFT [...] Tafoya DO 2 at 16:54 EDT Tel [phone], Service support [phone], RAD/Toe(s) Min 2 Views IMPRESSION: No acute abnormality of the left second toe. Electron ically Signed: Romaine Tafoya DO at 16:54 EDT Tel [phone], Service support [phone], CC: Serena Quiñonez; Micki Cruz MD Residential Care Facility Manager: Signed 15-Feb-2014 Spine Cervical without Contras Result: Comments: See Note; NOTES: [facility] Imaging Services [address] [place] [address] CAT Scan Report MR#: [id number] Acct: [id number] Name: MAURICIO SERRANO Rep #: [id number] : 1945 F 68 From: Michael Noland MD PCP: Micki Cruz MD Status: REG CLI Study: Spine Cervical without Contras Date of Exam: 02/15/14 Exam# [id number] Ordering Dr: Micki Cruz MD STUDY: CT [...] Noland MD at 14:08 E DT Tel [phone], Service support [phone], CC: Micki Cruz MD Residential Care Facility Manager: Signed 11-Feb-2014 Cerv Spine 4 or 5 Views Result: Comments: See Note; NOTES: [facility] Services [address] [place] [address] Radiology Report MR#: [id number] Acct: [id number] Name: MAURICIO SERRANO Rep #: [id number] : 1945 F 68 From: Julio Charles DO PCP: Micki Cruz MD Status: REG CLI Study: Cerv Spine 4 or 5 Views Date of Exam: 02/11/14 Exam# [id number] Ordering Dr: Serena Quiñonez STUDY: X-RAY - [...] Charles DO at 19 :48 EDT Tel [phone], Service support [phone], CC: Serena Cruz MD Residential Care Facility Manager: Signed 09-Oct-2013 Knee 4 or More Views Result: Comments: See Note; NOTES: [facility] Services [address] [place] [address] Radiology Report MR#: [id number] Acct: [id number] Name: MAURICIO SERRANO Rep #: [id number] : 1945 F 68 From: Romaine Tafoya DO PCP: Micki Cruz MD Status: REG CLI Study: Knee 4 or More Views Date of Exam: 10/09/13 Exam# [id number] Ordering Dr: Serena Quiñonez STUDY: X-RAY - [...] Romaine Tafoya DO at 19:01 EDT Tel [phone], Service support [phone], CC: Serena Cruz MD Residential Care Facility Manager: Signed 03-Sep-2013 Hepatobilliary Imaging Result: Comments: See Note; NOTES: [facility] Imaging Services [address] [place] [address] Nuclear Medicine Report MR#: [id number] Acct: [id number] Name: MAURICIO SERRANO Rep #: [id number] : 1945 F 68 From: Gene Diallo DO PCP: Micki Cruz MD Status: REG CLI Study: Hepatobilliary Imaging Date of Exam: 09/03/13 Exam# [id number] Ordering Dr: Catalina Daly DO CLINICAL: 68-year-old [...] or refilling of the gallbladder. IMPRESSION: 1. AMLIA L 99m Tc Mebrofenin hepatobiliary imaging examination [...] M.D. at 7:07 EST , Service support [phone], Fa x [phone] CLINICAL: 68-year-old female with reported history of [...] CC: Micki Cruz MD; Catalina Daly DO Residential Care Facility Manager: Signed 27-Aug-2013 Gallbladder Result: Comments: See Note; NOTES: [facility] Imaging Services [address] [place] [address] Ultrasound Report MR#: [id number] Acct: [id number] Name: MAURICIO SERRANO Rep #: [id number] : 1945 F 68 From: Michael Noland MD PCP: Micki Cruz MD Status: REG CLI Study: Gallbladder Date of Exam: 08/27/13 Exam# [id number] Ordering Dr: Catalina Daly DO STUDY: AB [...] M.D. at 10:31 EST , Service support [phone], CC: Micki Cruz MD; Catalina Daly DO Residential Care Facility Manager: Signed Family History Unknown Family Member Name [...] kg/m2 Body Surface Area Calculated 1.98 m2 62-Ixv-803566:53 Temperature 97.8 f Pulse 75 /min Comments: [...] kg/m2 Body Surface Area Calculated 2.05 m2 29-Ukg-282526:12 Temperature 97.8 f Comments: Method: Temporal Pulse [...] kg/m2 Body Surface Area Calculated 2.11 m2 30-Pjj-026356:58 Temperature 97.9 f Comments: Method: Oral Pulse [...] kg/m2 Body Surface Area Calculated 1.9 m2 19-Gjn-133092:15 Temperature 98.3 f Comments: Method: Oral Pulse [...] 0.00 cm Results Date Description Value Details 10-Hgy-648871:28 Metabolic Panel, Comprehensive Comments: Jan 2017; PATIENT NOT FASTINGPERFORMED BY: [facility]Co[facility], Old BridgeXvwarc6933 [facility] [id number] ([id number]) ALT (SGPT) 14 [iU]/L (Normal) Range: 0-32 [...] Glucose, Serum 77 mg/dL (Normal) Range: 65-99 26-Oav-380517:28 CALCIFEDIOL (93978) Comments: Jan 2017; PATIENT NOT FASTINGPERFORMED BY: ProtAb6370 [facility] [id number] Vitamin D, 25-Hydroxy 33.0 ng/mL (Normal) Range: 30.0-100.0 Comments: Vitamin D deficiency has been defined by the Malcolm ofHol[facility] Hospital[facility] and an Endocrine Society practice guideline as alevel of serum 25-OH vitamin D less than 20 ng/mL (1,2).The Endocrine Society went on to further define vitamin Dinsufficiency as a level between 21 and 29 ng/mL (2).1. IOM (Malcolm of Medicine). 2010. Dietary reference intakes for calcium and D. [place]: The National Academies Press.2. Miki MF, Jamie NC, Cata VEGA, et al. Evaluation, treatment, and prevention of vitamin D deficiency: an Endocrine Society clinical practice guideline. JCEM. 2010; 96(7):1911-30. 22-Pxs-203811:21 C-REACTIVE PROTEIN (63902) Comments: PATIENT NOT FASTINGPERFORMED BY: CB [facility] Absxga5838 [employer] [address] [id number] C-Reactive Protein, Quant 6.7 mg/L (Abnormal) Range: 0.0-4.9 55-Cgs-712333:21 SED RATE ERYTHROCYTE (22054) Comments: PATIENT NOT FASTINGPERFORMED BY: UserEvents Ldogfg7468 [facility] [id number] Sedimentation Rate-Westergren 5 mm/h (Normal) Range: 0-40 72-Snl-514231:21 METABOLIC PANEL, COMPREHENSIVE Comments: PATIENT NOT FASTINGPERFORMED BY: UserEvents Mhghal2603 [facility] [id number] (38570) ALT (SGPT) 12 [iU]/L (Normal) Range: 0-32 [...] Glucose, Serum 69 mg/dL (Normal) Range: 65-99 93-Kyd-706150:21 CBC, PLATELETS & AUT DIFF Comments: PATIENT NOT FASTINGPERFORMED BY: [employer]6370 [facility] [id number] (44797) Immature Grans (Abs) 0.0 {x10E3/uL} (Normal) Range: [...] (Normal) Range: 3.4-10.8 :08 T4, FREE (THYROXINE) (14993) Comments: PATIENT NOT FASTINGPERFORMED BY: UserEventsRaritan [facility], Old BridgeYvtfky1477 [facility] [id number] T4,Free(Direct) 1.31 ng/dL (Normal) Range: 0.82-1.77 :08 T3, FREE (TRIDOTHYRONINE) (54029) Comments: PATIENT NOT FASTINGPERFORMED BY: UserEventsCHRISTUS St. Vincent Physicians Medical CenterSvqzxw6561 [facility] [id number] Triiodothyronine,Free,Serum 2.2 pg/mL (Normal) Range: 2.0-4.4 :08 TSH (52334) Comments: PATIENT NOT FASTINGPERFORMED BY: [facility]CoR[facility], Old BridgeWhnsfl7631 [facility] [id number] TSH 3.520 {uIU/mL} (Normal) Range: 0.450-4.500 61-Mvw-928279:28 Metabolic Panel, Comprehensive Comments: PATIENT NOT FASTINGPERFORMED BY: LabCorewell [facility]6370 [facility] [id number] (87268) ALT (SGPT) 15 [iU]/L (Normal) Range: 0-32 [...] Glucose, Serum 93 mg/dL (Normal) Range: 65-99 26-Sus-892320:28 CBC, Platelets & Auto Diff Comments: PATIENT NOT FASTINGPERFORMED BY: LabCoR[facility], Old BridgeXofhhp1503 [facility] [id number] (02605) Immature Grans (Abs) 0.0 {x10E3/uL} (Normal) Range: [...] 3.77-5.28 WBC 6.8 {x10E3/uL} (Normal) Range: 3.4-10.8 35-Igx-135881:28 TSH (41287) Comments: PATIENT NOT FASTINGPERFORMED BY: [facility] Zditko5864 [facility] [id number] TSH 0.034 {uIU/mL} (Abnormal) Range: 0.450-4.500 87-Rjh-908607:40 CBC W/Diff, Automated Comments: [facility] [address] [place], [place], [address] Absolute Lymph 2.31 {X10_3/ul} (Normal) Range: 0.83-4.51 [...] 4.2-5.4 WBC 8.7 K/mm3 (Normal) Range: 4.4-11.0 70-Mvn-510003:40 Comprehensive Metabolic Profil Comments: [facility] [address] [place], [place], [address] GAP 7 (Normal) Range: 5-15 CO2 29.0 [...] 7-18 GLU 106 mg/dL (Normal) Range: 70-110 94-Acv-881650:07 URINE BECKY CULTURE-IDENTIFICATN Comments: PATIENT NOT FASTINGPERFORMED BY: [facility] Adfkes9480 [facility] [id number] (93289) Result 1 CNSNSS (Abnormal) Comments: Coagulase negative [...] S Urine Final report Culture,Comprehens (Abnormal) svetlana 06-Egt-926498:07 Metabolic Panel, Comprehensive Comments: PATIENT NOT FASTINGPERFORMED BY: Fusion-ioCore[facility]6370 [facility] [id number] (82590) ALT (SGPT) 14 [iU]/L (Normal) Range: 0-32 [...] Glucose, Serum 76 mg/dL (Normal) Range: 65-99 70-Muf-968628:07 CBC, Platelets & Auto Comments: PATIENT NOT FASTINGPERFORMED BY: [facility]6370 [facility] [id number] Information: B76011, 714285 Diff (90993) Immature Grans (Abs) 0.0 {x10E3/uL} (Normal) Range: [...] 3.77-5.28 WBC 8.1 {x10E3/uL} (Normal) Range: 3.4-10.8 36-Lha-171975:07 PT (Prothrobim Time) (01212) Comments: PATIENT NOT FASTINGPERFORMED BY: [facility]Co[facility], Old BridgeImrmps2579 [facility] [id number] Prothrombin Time 10.4 {sec} (Normal) Range: 9.1-12.0 INR 1.0 (Normal) Range: 0.8-1.2 Comments: Reference interval is for non-anticoagulated patients. . Suggested INR therapeutic range for Vitamin K anta gonist therapy: Standard Dose (moderate intensity therapeutic range): 2.0 - 3.0 Higher intensity therapeutic range 2.5 - 3.5 40-Bbw-52525:53 Urinalysis, Office (99267) UA - LEUKOCYTE ESTERASE Small (Normal) UA - NITRITE Negative (Normal) URINE UROBILINGN IVAN TIMED Normal mg/dL (Normal) UA - PROTEIN Negative mg/dL (Normal) UA - PH 5.0 (Normal) Comments: 5.5 UA - BLOOD Non Hemolyzed Trace (Normal) UA - SPECIFIC GRAVITY 1.005 (Normal) UA - KETONES Negative mg/dL (Normal) UA - BILIRUBIN Negative (Normal) UA - GLUCOSE Negative (Normal) 46-Zcd-715027:17 Urinalysis, Office (85535) UA - LEUKOCYTE ESTERASE Large (Normal) UA - NITRITE Negative (Normal) URINE UROBILINGN IVAN TIMED Normal mg/dL (Normal) UA - PROTEIN 100 mg/dL (Normal) UA - PH 6 (Abnormal) UA - BLOOD Hemolyzed Large (Normal) UA - SPECIFIC GRAVITY 1.025 (Normal) UA - KETONES Negative mg/dL (Normal) UA - BILIRUBIN Negative (Normal) UA - GLUCOSE Negative (Normal) 31-May-2015 EGD ([facility]) See Note (Normal) Comments: [facility] [address] [place], [address] 12:32 Comments: Patient: MAURICIO SERRANO : 1945 (69/F) Acct Num: [id number] Phys: Eugenio Laguna Unit Num: [id number] Loc: LABSPEC Specimen: [id number] Received: 05/31/15 - 1610 Spec Type: EGD BIOPSY TISSUES TISSUES: COMMENT The results of immunohistochemistry for Helicobacter pylori will be reported separately ([id number]). Alcian blue/PAS stain with matched control was [...] one cassette. / AM: 06/01/15 TC:3 CPT: 22714, 49658 HEADER OPERATION: EGD w ith biopsy PRE-OP [...] of intestinal metaplasia. AM: 06/02/15 Signed Olvin [facility] 06/02/15 <signature on file> 31-May-2015 IMMUNOHISTOCHEMISTRY See Note (Normal) Comments: [address] [place], [address] 0:00 Comments: Patient: MAURICIO SERRANO : 1945 (69/F) Acct Num: [id number] Phys: Eugenio Laguna Unit Num: [id number] Loc: LABSPEC Specimen: [id number] Received: 06/02/151156 Spec Type : IMMUNO TISSUES TISSUES: SPECIMEN INFORMATION: Tissue Source: Gastric antrum, biopsy Clinical Info: Peptic ulcer disease Specimen Number: [id number] CPT code: 35587 METHODOL OGY: Deparaffinized sections of prefer/formalin-fixed tissue or PAP/DQ stained slides are incubated with monoclonal/polyclonal antibodies/oligonucleotide probes. Localization is made via biotin free immunoperoxidase method. Appropriate controls are performed and reacted as expected. Results on target cell population are indicated in the following table: RESULTS: ANTIBODY / CLONE RESULT H Pylori (polyclonal) negative These tests were developed and their performance characteristics determined by [facility]. They may not have been cleared or approved by the U.S. Food and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 On: 26-Feb-2008 Intent Needed)By: Serena Quiñonez CNP Comments: PE protocolstatSTAT CT shows PE to be admitted Serena Quiñonez CNP Solu -Medrol Injection, 125 mg On: 26-Feb-2008 Intent ([id number])By: Serena Quiñonez CNP Comments: waiver signedAmt: 2mlLot: [id number]: 09/2010Route: IMSite: right hipTolerated: wellGiven By: RADAMES Ta CNP, Mary E Inhaler Demonstration ([id number])By: On: 26-Feb-2008 Intent Olamide MARTINEZ BrenYonathan Quiñonez CNP Bren Aerosol Treatment ([id number])By: On: 26-Feb-2008 Intent Serena Quiñonez CNP, CNP Serena Comments: done E Venous Doppler - RightBy: Nancy On: 27-Nov-2007 Intent Micki GIPSON Comments: leg 2 weeks DXA, BONE DENSITY, AXIAL SKELETON On: 06-Nov-2007 Intent ([id number])By: Micki Cruz MD Comments: estrogen deficient MAMMOGRAM, SCREENING, BOTH On: 06-Nov-2007 Intent BREASTS ([id number])By: Micki Cruz MD Pulse Oximetry ([id number])By: On: 06-Nov-2007 Intent RAMA Webster Pulse Oximetry ([id number])By: Alex On: 24-Sep-2007 Intent Dana Comments: 98% Aerosol Treatment ([id number])By: On: 05-Aug-2007 Intent Olamide MARTINEZ BrenYonathan Quiñonez CNP Bren Spirometry ([id number])By: Nancy On: 27-May-[address] - Brain/HeadBy: Nancy GIPSON, On: 22-Mar-2006 Tere Wright Planned Medications INJECTION, KETOROLAC TROMETHAMINE, PER 15 MG Ordered: 30-Apr-2012 Pending Serena Quiñonez CNP, CNP Bren INJECTION, METHYLPREDNISOLONE SODIUM SUCCINATE, UP TO 125 MG Ordered: 17-Aug-2016 Pending Serean Quiñonez CNPshanamichelle MARTINEZ Bren INJECTION, METHYLPREDNISOLONE SODIUM [...] TSH : DISCONTINUED - T4, FREE (THYROXINE) ([id number]) Indication: Abnormal TSH Abnormal TSH : DISCONTINUED - T3, FREE (TRIDOTHYRONINE) ([id number]) Indication: Abnormal TSH Abnormal TSH : DISCONTINUED - TSH (THYROID STIMULATING HORMONE) ([id number]) Indication: Abnormal TSH Encounter for screening for [...] NOS : DISCONTINUED - HEPATIC FUNCTION PANEL (54520) Indication: FUNGUS, NOS Hypertension : DISCONTINUED - TSH ([id number]) Indication: Hypertension GERD (gastroesophageal reflux disease) : [...] recently getting worse-full End: 30-Dec-2017 11:33 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 He is not doing well and pt [...] The patient does have durable power of ip attorney and living will. The patient has [...] For Left Knee replacement Dr. Hernandez in [place] Aug 09, 2015. When pt had Rt [...] (obesity ). 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
--- OUTSIDE RECORDS SUMMARY | 2018-07-24 21:21 | XMS RPT_ITS | Continuity of Care Document ---
:1945 External Reference #:[id number] Author Organization [facility] Address [address] [facility] [address] [place] [address] Phone Care Team Providers Name Role Phone Serena Quiñonez CNP Unavailable Anette Connolly Unavailable Dr. Acosta Talbot Unavailable Michael Duncan Unavailable Logan El DO Unavailable Slarb DIAGNOSTIC SALES SPECIALIST, Cheryle Unavailable Unavailable Long DIAGNOSTIC SALES SPECIALIST, Kalie L Unavailable Unavailable long, yuko Unavailable [...] 715.90) Comments: stable on gabapentin seen at [facility] arthritis neck arthritis and knee pain , has seen Dr. Coughlin for neck pain for injectionwas seen at [facility] arthritis given gabapentinwas taking melox icam daily [...] Serena Mcmanus Start : 08-Apr-2018 Active Comments:OARRS uyjsovcnG78.9f43.21Thirty Losartan Potassium 50 MG Oral Tablet 1 [...] Quantity: 2 {Tablet} Refills: 1 Ordered:10-Jan-2018 Long DIAGNOSTIC SALES SPECIALISTKalie Start : 10-Jan-2018 Active ALEVE, 220MG (Oral [...] 27-Jun-2015 End : 04-Jul-2015 Inactive CITRACAL/VITAMIN D, 828-027PA-JRVW (Oral Tablet) 2 QD for 0 days Refills: 0 Ordered:03-Oct-2011 Abby Jones LPN End : 03-Oct-2011 Inactive CLARINEX REDITABS, 5MG (Oral Tablet Dispersible) 1 (one) Tablet Disperse daily for 0 days Quantity: 5 {Tablet_Disperse} Refills: 0 Ordered:06-Jul-2010 RAMA Webster Start : 05-Dec-2009 End : 06-Jul-2010 Inactive CORTISPORIN, 3.5-64127-4 (Otic Solution) 4 Solution Solution tid for [...] Quantity: 30 {Tablet} Refills: 0 Ordered:18-Nov-2015 Olamide OUTREACH LIAISON, Serena Patton OUTREACH LIAISON, Serena Mcmanus Start : 14-Oct-2015 End : 13-Nov-2015 Inactive LEVAQUIN, 500MG (Oral Tablet) 1 Tablet daily for 10 days Quantity: 10 {Tablet} Refills: 0 Ordered:01-Oct-2012 Olamide OUTREACH LIAISON, Serena Patton CNP, Serena Mcmanus Start : 01-Oct-2012 End : 11-Oct-2012 Inactive Comments:void after 30 days LEXAPRO, 10MG (Oral Tablet) 1 Tablet QD for 0 days Quantity: 10 {Tablet} Refills: 0 Ordered:09-Jul-2011 RAMA Websetr Start : 09-Jul-2011 End : 09-Jul-2011 Inactive [...] : 08-Aug-2010 End : 28-Sep-2011 Inactive NYSTOP, 085097TLDQ/GM (External Powder) Powder take as directed for [...] Quantity: 30 {Tablet} Refills: 5 Ordered:11-Nov-2008 Serena Quiñonze CNP, CNP, Mary E Start : 11-Nov-2008 [...] : 20-Jun-2012 Discontinued Comments:This order discontinued per [facility]. OXYCODONE HCL, 5MG (Oral Tablet) 1 [...] Quantity: 30 {Capsule} Refills: 6 Ordered:15-Dec-2014 Slarb DIAGNOSTIC SALES SPECIALIST, Cheryle Start : 20-Feb-2013 End : 15-Dec-2014 Discontinued TESSALON PERLES, 100MG (Oral Capsule) 1 (one) Capsule tid for 0 days Quantity: 30 {Capsule} Refills: 0 Ordered:11-Aug-2007 Dana Johnson Start : 11-Aug-2007 End : 06-Nov-2007 Discontinued TOPICORT, 0.25% (External Cream) 1 (one) Cream bid for 0 days Quantity: 1 {Tube} Refills: 0 Ordered:02-Nov-2014 Slarb DIAGNOSTIC SALES SPECIALIST, Cheryle Start : 30-Jun-2014 End : 02-Nov-2014 Discontinued TYLENOL WITH CODEINE #3, 300-30MG (Oral Tablet) 1 (one) Tablet q6-8 hrs prn for 0 days Quantity: 30 {Tablet} Refills: 0 Ordered:27-Jun-2015 Slarb DIAGNOSTIC SALES SPECIALIST, Cheryle Start : 11-Mar-2015 End : 27-Jun-2015 Discontinued TYLENOL, 325MG (Oral Tablet) 1 PRN for 0 days Refills: 0 Ordered:27-Jun-2015 Slarb DIAGNOSTIC SALES SPECIALIST, Cheryle Start : 02-Mar-2015 End : 27-Jun-2015 [...] (M79.609, 729.5) Status: Inactive as of 24-May-2014 FCI (current) use of anticoagulants (Z79.01, V58.61) Status: [...] Study (HP) Result: Comments: See Note; NOTES: [facility] Imaging Services [address] [place] [address] Verdana 4d Dexa Bone Density Study (HP) MR#: [id number] Acct: [id number] Name: EVENS SERRANO Germaine Rep #: [id number] : 1945 F 71 From: Michael Noland MD PCP: Serena Quiñonez Status: REG CLI Study: Dexa Bone Density Study (HP) Date of Exam: 11/13/16 Exam# [id number] Ordering Dr: Kyle Quiñonez STUDY: DUAL ENERGY [...] Michael Noland MD at 7:57 EDT Tel [phone], Service support , CC: Serena Quiñonez Honing Job Setter: Signed 13-Nov-2016 SCREENING MAMM (CAD), BILAT Result: Comments: See Note; NOTES: [facility] Imaging Services [address] [place] [address] Verdana 4d SCREENING MAMM (CAD), BILAT MR#: [id number] Acct: [id number] Name: TRINI SERRANO Rep #: [id number] : 1945 F 71 From: Michael Noland MD PCP: Serena Quiñonez Status: REG CLI Study: SCREENING MAMM (CAD), BILAT Date of Exam: 11/13/16 Exam# [id number] Ordering Dr: Yudith Quiñonez MAMMOGRAPHY - BILATERAL [...] y biopsy of a clinically suspicious abnormality. [id number] Electronically Signed: Michael Noland MD at 8:11 EDT Tel [phone], Service support , CC: Serena Quiñonez Honing Job Setter: Signed 17-Aug-2016 Chest PA and Lateral Result: Comments: See Note; NOTES: [facility] Imaging Services [address] [place] [address] Verdana 4d Chest PA and Lateral MR#: [id number] Acct: [id number] Name: MAURICIO SERRANO p #: [id number] : 1945 F 71 From: Michael Noland MD PCP: Micki Cruz MD Status: REG CLI Study: Chest PA and Lateral Date of Exam: 08/17/16 Exam# [id number] Ordering Dr: Serena Quiñonez STUDY: X-RAY CHEST [...] Michael Noland MD at 14:44 EST Tel [phone], Service support [phone], CC: Serena Quiñonez; Micki Cruz MD Honing Job Setter: Signed 03-Oct-2015 PT D/C Summary (1) Result: Comments: See Note; NOTES: [facility] [address] [place] [address] Fax REHABILITATION SE RVICES DISCHARGE SUMMARY MR#: [id number] Acct: [id number] Name: MAURICIO SERRANO Rep #: [id number] : 1945 70 From: Bolivar Newell DPT, OCS, CSCS Referring Dr.: OUT [facility] DO[facility] Status: REG RCR Eval Date: Discharge Date: HP - PT D/C Summary It has been my pleasure to treat MAURICIO SERRANO under orders from [facility] Doctor, SARATH HERNANDEZ for the diagnosis of [...] please feel free to call me at [phone]. Thank you for the referral of this patient. Sincerely, Bolivar Newell <Electronically signed by Bolivar Newell DPT, OCS, CSCS> 10/14 0646 CC: SARATH HERNANDEZ; Micki Cruz MD; OUT OF TOWN DOCTOR EBG Signed 09-Sep-2015 Re-Evaluation - PT (1) Result: Comments: See Note; NOTES: [facility] [address] [place], [place] [address] Fax REEVALUATION / ME DICARE RECERTIFICATION [place] 4d PHYSICAL THERAPY MR#: [id number] Acct: [id number] Name: MAURICIO SERRANO Rep #: [id number] : 1945 70 From: Bolivar Newell DPT, OCS, CSCS Referring DrPaxton: SHAHNAZ CHUN [facility] DOCTOR Status: REG R Insurance: [employer] Out of [facility] Doctor, SARATH HERNANDEZ It has been [...] do not hesitate to contact me at [phone] by phone or if you have questions [...] Discharge Instruction Result: Comments: See Note; NOTES: [facility] Medical Records Department [address] [place] [address] Discharge Instruction 08/14/152021 MR#: [id number] Acct: [id number] Name: MAURICIO SERRANO Rep #: [id number] : 1945 70 From: Logan Keen MD PCP: Micki Cruz MD Status: DEP ER ED Disposition - Plan for ED Patient: Chief Complaint: Lower Extremity Injury Instructions: ED Dyspnea What to do if you have Problems For any increased pain, shortness of breath, bleeding, nausea or vomiting, chest pain, or any unexpected problems, contact your do ctor. Call [facility] ([phone]) or report to the closest Emergency Room. Call 911 if necessary. 08/18/15 0746 <Electronically signed by Logan Keen MD> Date ____ Logan Keen MD Cosigner Signature (If Indicated): Date CC: Micki Cruz MD 18-Aug-2015 Emergency Department Summary Result: Comments: See Note; NOTES: [facility] Medical Records Department [address] [place] [address] Emergency Department Summary MR#: [id number] Acct: [id number] Name: MAURICIO SERRANO Rep #: [id number] : 1945 70 From: Logan Keen MD PCP: Micki Cruz MD Status: DEP ER DATE OF SERVICE: 08/14/2015 CHIEF COMPLAINT: Shortness of breath, leg swelling. HISTORY OF PRESENT ILLNESS: A 70-year-old female who is 5 days status post left total knee repair done at [facility], presents with shortness of breath and leg [...] Discharge. Logan Keen MD T: NTS JOB: [id number] 08/18/15 0746 <Electronically signed by Logan stovall MD> Date Logan Keen MD Cosigner Signature (If Indicated): Date CC: Micki christine MD Date Dictated: 02/14/16 2022 Date Transcribed: 08/14/152021 Honing Job Setter: Signed 14-Aug-2015 CTA Chest W/WO Contrast Result: Comments: See Note; NOTES: [facility] Imaging Services [address] [place] [address] Verdana 4d CTA Chest W/WO Contrast MR#: [id number] Acct: [id number] Name: MAURICIO DORAN Rep #: [id number] : 1945 F 70 From: Sandy Lundberg MD PCP: Micki Cruz MD Status: REG ER Study: CTA Chest W/WO Contrast Date of Exam: 08/14/15 Exam# [id number] Ordering Dr: Logan Velasquez MD STUDY: CTA [...] MD at 20:03 EST , Service support [phone], CC: Germaine Cruz MD; Logan Keen MD Honing Job Setter: Signed 12-Aug-2015 Inital Evaluation (1) - PT Result: Comments: See Note; NOTES: [facility] [address] [place], [place] [address] Fax REHABILITATION SE RVICES INITIAL EVALUATION MR#: [id number] Acct: [id number] Name: MAURICIO SERRANO Rep #: [id number] : 1945 70 From: Bolivar Newell DPT, OCS, CSCS Referring Dr.: OUT OF TOWN DOCTOR Status: REG RCR [facility] [employer] [facility] Date: Patient's Visit Information MAURICIO SERRANO is a 70 year old F, referred to Physical Therapy by Out of Town Doctor, ERENDIRA HERNANDEZ, with a diagnosis of L Knee TKA. Date of Evaluation: 08/11/15 Physical Therapist: Bolivar Newell - Visit Plan Frequency: 3x /Week Duration: 4-6 Weeks - Subjective Subjective: 2 days ago had L TKA at [facility] by Dr. Salazar. Had bone on bone [...] for shoes but takes time. Has a neighborhood aide to get socks and pick things up [...] to be FAXED BACK to us at [phone] for Medicare purposes. Please let me know if there are questions or concerns regarding this plan of care. Conrad matos Signature: Date: <Electronically signed by Bolivar Newell DPT, OCS, CSCS> 08/12/15 0642 CC: SARATH HERNANDEZ; Micki shea MD; OUT OF TOWN DOCTOR EBG Signed For Medicare only, by signing this I certify the plan of care. Physicians Signature Date 12-Jul-2015 ELECTROCARDIOGRAM, COMPLETE (ECG) (86893) Comments: sinus rhythm within normal limits Result: [MEASUREMENTS ANALYSIS] Date of Test: 07/12/2015 13:50:06; Heart Rate: 72; VA Interval: 146; QRS: 90; QT Interval: 392; Corrected QT Interval (QTc): 413; P Wave Macon: 47; QRS Wave [place]: 20; T Wave [place]: 51; Blood Pressure: 122/80 [ECG DIAGNOSTIC STATEMENTS] Date of Test: 07/12/2015 13:50:06; Summary: Sinus Rhythm WITHIN NORMAL LIMITS 30-Jun-2015 Abdomen/Pelvis without Cont Result: Comments: See Note; NOTES: [facility] Imaging Services [address] [place] [address] Verdana 4d Abdomen/Pelvis without Cont MR#: [id number] Acct: [id number] Name: MAURICIO SERRANO Rep #: [id number] : 1945 F 69 From: Bella Meade MD PCP: Micki Cruz MD Status: REG CLI Study: Abdomen/Pelvis without Cont Date of Exam: 06/30/15 Exam# [id number] Alexia england Dr: Serena Quiñonez STUDY: CT [...] at 10:49 EST Tel , Service support [phone], CC: Serena Quiñonez; Micki Cruz MD Honing Job Setter: Signed 17-Feb-2015 Abdomen/Pelvis WITH Contrast Result: Comments: See Note; NOTES: [facility] Imaging Services [address] [place] [address] CAT Scan Report MR#: [id number] Acct: [id number] Name: MAURICIO SERRANO Rep #: [id number] : 1945 F 69 From: Gerald Persaud DO PCP: Micki Cruz MD Status: REG CLI Study: Abdomen/Pelvis WITH Contrast Date of Exam: 02/17/15 Exam# [id number] Ordering Dr: Micki Cruz MD [facility] DY: CT ABDOMEN AND PELVIS WITH CONTRAST [...] all fat-containing umbilical hernia. Electronically Signed: Gerald Persadu DO at 19:10 EDT Tel , Service support [phone], CC: Micki Cruz MD Honing Job Setter: Signed 02-Nov-2014 Chest WITH Contrast Result: Comments: See Note; NOTES: [facility] Imaging Services [address] [place] [address] CAT Scan Report MR#: [id number] Acct: [id number] Name: MAURICIO SERRANO Rep #: [id number] : 1945 F 69 From: Michael Noland MD PCP: Micki Cruz MD Status: REG CLI Study: Chest WITH Contrast Date of Exam: 11/02/14 Exam# [id number] Ordering Dr: Serena Quiñonez STUDY: CTA CHEST [...] Michael Noland MD at 15:54 EDT Tel [phone], Service support [phone], CC: Serena Quiñonez; Micki Cruz MD Honing Job Setter: Signed 15-Mar-2014 Toe(s) Min 2 Views Result: Comments: See Note; NOTES: [facility] Imaging Services [address] [address] Radiology Report MR#: [id number] Acct: [id number] Name: MAURICIO SERRANO Rep #: [id number] : 1945 F 68 From: Romaine Tafoya DO PCP: Micki Cruz MD Status: REG CLI Study: Toe(s) Min 2 Views Date of Exam: 03/15/14 Exam# [id number] Ordering Dr: Serena Quiñonez STUDY: X-RAY LEFT [...] Tafoya DO 2 at 16:54 EDT Tel [phone], Service support [phone], RAD/Toe(s) Min 2 Views IMPRESSION: No acute abnormality of the left second toe. Electron ically Signed: Romaine Tafoya DO at 16:54 EDT Tel [phone], Service support [phone], CC: Serena Quiñonez; Micki Cruz MD Honing Job Setter: Signed 15-Feb-2014 Spine Cervical without Contras Result: Comments: See Note; NOTES: [facility] Imaging Services [address] [place] [address] CAT Scan Report MR#: [id number] Acct: [id number] Name: MAURICIO SERRANO Rep #: [id number] : 1945 F 68 From: Michael Noland MD PCP: Micki Cruz MD Status: REG CLI Study: Spine Cervical without Contras Date of Exam: 02/15/14 Exam# [id number] Ordering Dr: Micki Cruz MD STUDY: CT [...] Noland MD at 14:08 E DT Tel [phone], Service support [phone], CC: Micki Cruz MD Honing Job Setter: Signed 11-Feb-2014 Cerv Spine 4 or 5 Views Result: Comments: See Note; NOTES: [facility] Imaging Services [address] [place] [address] Radiology Report MR#: [id number] Acct: [id number] Name: MAURICIO SERARNO Rep #: [id number] : 1945 F 68 From: Julio Charles DO PCP: Micki Cruz MD Status: REG CLI Study: Cerv Spine 4 or 5 Views Date of Exam: 02/11/14 Exam# [id number] Ordering Dr: Serena Quiñonez STUDY: X-RAY - [...] Charles DO at 19 :48 EDT Tel [phone], Service support [phone], CC: Serena Cruz MD Honing Job Setter: Signed 09-Oct-2013 Knee 4 or More Views Result: Comments: See Note; NOTES: [facility] Imaging Services [address] [place] [address] Radiology Report MR#: [id number] Acct: [id number] Name: MAURICIO SERRANO Rep #: [id number] : 1945 F 68 From: Romaine Tafoya DO PCP: Micki Cruz MD Status: REG CLI Study: Knee 4 or More Views Date of Exam: 10/09/13 Exam# [id number] Ordering Dr: Serena Quiñonez STUDY: X-RAY - [...] Romaine Tafoya DO at 19:01 EDT Tel [phone], Service support [phone], CC: Serena Cruz MD Honing Job Setter: Signed 03-Sep-2013 Hepatobilliary Imaging Result: Comments: See Note; NOTES: [facility] Imaging Services [address] [place] [address] Nuclear Medicine Report MR#: [id number] Acct: [id number] Name: MAURICIO SERRANO Rep #: [id number] : 1945 F 68 From: Gene Diallo DO PCP: Micki Cruz MD Status: REG CLI Study: Hepatobilliary Imaging Date of Exam: 09/03/13 Exam# [id number] Ordering Dr: Catalina Daly DO CLINICAL: 68-year-old [...] M.D. at 7:07 EST , Service support [phone], Fa x [phone] CLINICAL: 68-year-old female with reported history of [...] CC: Micki Cruz MD; Catalina Daly DO Honing Job Setter: Signed 27-Aug-2013 Gallbladder Result: Comments: See Note; NOTES: [facility] Imaging Services [address] [place] [address] Ultrasound Report MR#: [id number] Acct: [id number] Name: MAURICIO SERRANO Rep #: [id number] : 1945 F 68 From: Michael Noland MD PCP: Micki Cruz MD Status: REG CLI Study: Gallbladder Date of Exam: 08/27/13 Exam# [id number] Ordering Dr: Catalina Daly DO STUDY: AB DOMINAL ULTRASOUND - RIGHT UPPER QUADRANT REASON FOR VISIT: Female, 68 years old. Mid abdominal pain. TECHNIQUE: Ultrasound evaluation of the right upper quadrant was performed with real-time and s tatic coaets-scale imaging. TECHNICAL QUALITY: Limited. Examination limited due [...] M.D. at 10:31 EST , Service support [phone], CC: Micki Cruz MD; Catalina Daly DO Honing Job Setter: Signed Family History Unknown Family Member Name [...] kg/m2 Body Surface Area Calculated 1.98 m2 52-Kbv-956778:53 Temperature 97.8 f Pulse 75 /min Comments: [...] kg/m2 Body Surface Area Calculated 2.05 m2 24-Con-399817:12 Temperature 97.8 f Comments: Method: Temporal Pulse [...] kg/m2 Body Surface Area Calculated 2.11 m2 93-Muj-423650:58 Temperature 97.9 f Comments: Method: Oral Pulse [...] kg/m2 Body Surface Area Calculated 1.9 m2 54-Yfh-823219:15 Temperature 98.3 f Comments: Method: Oral Pulse [...] 0.00 cm Results Date Description Value Details 30-Rii-591838:28 Metabolic Panel, Comprehensive Comments: Jan 2017; PATIENT NOT FASTINGPERFORMED BY: [facility] HospitalNxnoqk0276 [facility] [id number] ([id number]) ALT (SGPT) 14 [iU]/L (Normal) Range: 0-32 [...] Glucose, Serum 77 mg/dL (Normal) Range: 65-99 58-Zsv-913469:28 CALCIFEDIOL (61628) Comments: Jan 2017; PATIENT NOT FASTINGPERFORMED BY: AngioScore6370 [facility] [id number] Vitamin D, 25-Hydroxy 33.0 ng/mL (Normal) Range: 30.0-100.0 Comments: Vitamin D deficiency has been defined by the [place] of[facility] and an Endocrine Society practice guideline as alevel of serum 25-OH vitamin D less than 20 ng/mL (1,2).The Endocrine Society went on to further define vitamin Dinsufficiency as a level between 21 and 29 ng/mL (2).1. IOM ([place] of Medicine). 2010. Dietary reference intakes for calcium and D. [place]: The National Academies Press.2. Miki MF, Jamie NC, Cata VEGA, et al. Evaluation, treatment, and prevention of vitamin D deficiency: an Endocrine Society clinical practice guideline. JCEM. 2010; 96(7):1911-30. 82-Rzu-691767:21 C-REACTIVE PROTEIN (90196) Comments: PATIENT NOT FASTINGPERFORMED BY: CB [facility] Okauni[address]22 [place] [id number] C-Reactive Protein, Quant 6.7 mg/L (Abnormal) Range: 0.0-4.9 98-Mma-441185:21 SED RATE ERYTHROCYTE (88582) Comments: PATIENT NOT FASTINGPERFORMED BY: [facility] Azbdvj1263 [facility] [id number] Sedimentation Rate-Westergren 5 mm/h (Normal) Range: 0-40 73-Hif-908670:21 METABOLIC PANEL, COMPREHENSIVE Comments: PATIENT NOT FASTINGPERFORMED BY: [employer] Knnonb1254 [facility] [id number] (07947) ALT (SGPT) 12 [iU]/L (Normal) Range: 0-32 [...] Glucose, Serum 69 mg/dL (Normal) Range: 65-99 57-Lyk-372582:21 CBC, PLATELETS & AUT DIFF Comments: PATIENT NOT FASTINGPERFORMED BY: Tragara6370 [facility] [id number] (69559) Immature Grans (Abs) 0.0 {x10E3/uL} (Normal) Range: [...] (Normal) Range: 3.4-10.8 :08 T4, FREE (THYROXINE) (00295) Comments: PATIENT NOT FASTINGPERFORMED BY: [facility]IQAn[facility] HospitalWhgozp6553 [facility] [id number] T4,Free(Direct) 1.31 ng/dL (Normal) Range: 0.82-1.77 :08 T3, FREE (TRIDOTHYRONINE) (92982) Comments: PATIENT NOT FASTINGPERFORMED BY: MileIQRUSTBosvfn9217 [facility] [id number] Triiodothyronine,Free,Serum 2.2 pg/mL (Normal) Range: 2.0-4.4 :08 TSH (43477) Comments: PATIENT NOT FASTINGPERFORMED BY: [facility]Co[facility] HospitalTnrfbb1751 [facility] [id number] TSH 3.520 {uIU/mL} (Normal) Range: 0.450-4.500 15-Rcw-045287:28 Metabolic Panel, Comprehensive Comments: PATIENT NOT FASTINGPERFORMED BY: [facility]6370 [facility] [id number] (39143) ALT (SGPT) 15 [iU]/L (Normal) Range: 0-32 [...] Glucose, Serum 93 mg/dL (Normal) Range: 65-99 28-Cxm-128683:28 CBC, Platelets & Auto Diff Comments: PATIENT NOT FASTINGPERFORMED BY: [facility]Co[facility] HospitalZodavl5813 [facility] [id number] (21168) Immature Grans (Abs) 0.0 {x10E3/uL} (Normal) Range: [...] 3.77-5.28 WBC 6.8 {x10E3/uL} (Normal) Range: 3.4-10.8 08-Mom-095976:28 TSH (09897) Comments: PATIENT NOT FASTINGPERFORMED BY: [facility] Kiwsjj1101 [facility] [id number] TSH 0.034 {uIU/mL} (Abnormal) Range: 0.450-4.500 44-Vvb-136387:40 CBC W/Diff, Automated Comments: [facility] [address] [place], [place], [address] Absolute Lymph 2.31 {X10_3/ul} (Normal) Range: 0.83-4.51 [...] 4.2-5.4 WBC 8.7 K/mm3 (Normal) Range: 4.4-11.0 71-Ook-691812:40 Comprehensive Metabolic Profil Comments: [facility] [address] [place], [place], [address] GAP 7 (Normal) Range: 5-15 CO2 29.0 [...] 7-18 GLU 106 mg/dL (Normal) Range: 70-110 97-Mys-287236:07 URINE BECKY CULTURE-IDENTIFICATN Comments: PATIENT NOT FASTINGPERFORMED BY: [facility] Necbef1881 [facility] [id number] ([id number]) Result 1 CNSNSS (Abnormal) Comments: Coagulase negative [...] S Urine Final report Culture,Comprehens (Abnormal) svetlana 50-Jfy-757872:07 Metabolic Panel, Comprehensive Comments: PATIENT NOT FASTINGPERFORMED BY: Bookmytrainings.[facility]6370 [facility] [id number] (30529) ALT (SGPT) 14 [iU]/L (Normal) Range: 0-32 [...] Glucose, Serum 76 mg/dL (Normal) Range: 65-99 36-Agj-309363:07 CBC, Platelets & Auto Comments: PATIENT NOT FASTINGPERFORMED BY: [facility]6370 [facility] [id number] Information: G61653, 038369 Diff (60961) Immature Grans (Abs) 0.0 {x10E3/uL} (Normal) Range: [...] 3.77-5.28 WBC 8.1 {x10E3/uL} (Normal) Range: 3.4-10.8 90-Rik-312280:07 PT (Prothrobim Time) (90574) Comments: PATIENT NOT FASTINGPERFORMED BY: [facility]Co[facility] Psych[facility] HospitalWejzyo5308 [facility] [id number] Prothrombin Time 10.4 {sec} (Normal) Range: 9.1-12.0 INR 1.0 (Normal) Range: 0.8-1.2 Comments: Reference interval is for non-anticoagulated patients. . Suggested INR therapeutic range for Vitamin K anta gonist therapy: Standard Dose (moderate intensity therapeutic range): 2.0 - 3.0 Higher intensity therapeutic range 2.5 - 3.5 55-Lin-10640:53 Urinalysis, Office (56915) UA - LEUKOCYTE ESTERASE Small (Normal) UA - NITRITE Negative (Normal) URINE UROBILINGN IVAN TIMED Normal mg/dL (Normal) UA - PROTEIN Negative mg/dL (Normal) UA - PH 5.0 (Normal) Comments: 5.5 UA - BLOOD Non Hemolyzed Trace (Normal) UA - SPECIFIC GRAVITY 1.005 (Normal) UA - KETONES Negative mg/dL (Normal) UA - BILIRUBIN Negative (Normal) UA - GLUCOSE Negative (Normal) 14-Ktq-832200:17 Urinalysis, Office (45917) UA - LEUKOCYTE ESTERASE Large (Normal) UA [...] EGD ([facility]) See Note (Normal) Comments: [facility] [address] [place], [address] 12:32 Comments: Patient: MAURICIO SERRANO : 1945 (69/F) Acct Num: [id number] Phys: Eugenio Laguna Unit Num: [id number] Loc: LABSPEC Specimen: [id number] Received: 05/31/15 - 1610 Spec Type: EGD BIOPSY TISSUES TISSUES: COMMENT The results of immunohistochemistry for Helicobacter pylori will be reported separately ([id number]). Alcian blue/PAS stain with matched control was [...] one cassette. / AM: 06/01/15 TC:3 CPT: 93521, 32005 HEADER OPERATION: EGD w ith biopsy PRE-OP [...] of intestinal metaplasia. AM: 06/02/15 Signed [facility] 06/02/15 <signature on file> 31-May-2015 IMMUNOHISTOCHEMISTRY See Note (Normal) Comments: [address] [place], [address] 0:00 Comments: Patient: MAURICIO SERRANO : 1945 (69/F) Acct Num: [id number] Phys: Eugenio Laguna Unit Num: [id number] Loc: LABSPEC Specimen: [id number] Received: 06/02/151156 Spec Type : IMMUNO TISSUES TISSUES: SPECIMEN INFORMATION: Tissue Source: Gastric antrum, biopsy Clinical Info: Peptic ulcer disease Specimen Number: [id number] CPT code: 93126 METHODOL OGY: Deparaffinized sections of prefer/formalin-fixed tissue or PAP/DQ stained slides are incubated with monoclonal/polyclonal antibodies/oligonucleotide probes. Localization is made via biotin free immunoperoxidase method. Appropriate controls are performed and reacted as expected. Results on target cell population are indicated in the following table: RESULTS: ANTIBODY / CLONE RESULT H Pylori (polyclonal) negative These tests were developed and their performance characteristics determined by [facility]. They may not have been cleared or approved by the U.S. Food and Drug Administration. The FDA has determined that such clearance or approval is not necessary. INTERPRETATION: Gastric antrum, biopsy: Negative for H elicobacter pylori. AM: 06/02/15 PHYSICIAN AND INSTITUTION [address] [address] Signed Olvin [facility] 06/02/15 <signature on file> 01-Mar-2015 Gastric Biopsy See Note (Normal) Comments: Test performed at:[facility] [address] [place] [address] 10:56 Comments: Patient: MAURICIO SERRANO : 1945 (69/F) Acct Num: [id number] Phys: Eugenio Laguna Unit Num: [id number] Loc: LABSPEC Specimen: [id number] Received: 03/01/151700 Spec Type: Gastric Bx TISSUES TISSUES: COMMENT A AND B - The results of immunohistochemistry for Helicobacter pylori will be reported separately ([id number]). GROSS DESCRIPTION A - Recei michelle is [...] one cassette. / DOREEN:charles 03/02/15 TC:2 CPT: 42380 x2 HEADER OPERATION: EGD with biopsy PRE-OP [...] IMMUNOHISTOCHEMISTRY See Note (Normal) Comments: Test performed at:[facility] [address] [place] [address] [id number] 0:00 Comments: Patient: MAURICIO SERRANO : 1945 (69/F) Acct Num: [id number] Phys: Eugenio Laguna Unit Num: [id number] Loc: LABSPEC Specimen: [id number] Received: 03/03/15 - 1218 Spec Type : IMMUNO TISSUES TISSUES: SPECIMEN INFORMATION: Tissue Source: A. Gastric ulcer, biopsy, B. Gastric antrum/body, biopsy Clinical Info: Abdominal pain Specimen Number: [id number] A AND B CPT code: 02096, 12773 METHODOLOGY: Deparaffinized sections of prefer/formalin-fixed tissue or [...] oped and their performance characteristics determined by [facility]. They may not have been cleared or approved by the U.S. Food and Drug Administration. The FDA has determi erasmo that such clearance or approval is not necessary. INTERPRETATION: A. Gastric ulcer, biopsy: Negative for Helicobacter pylori organisms. B. Gastric antrum/body, biopsy: Negative for Helico bacter pylori organisms. SJ:charles 03/04/15 PHYSICIAN AND INSTITUTION [address] [address] Signed ___ Erik Crowell 03/04/15 <signature on file> 07-Yss-018744:20 Amylase Comments: Test performed at:[facility] [address] [place] [address] DANA 40 U/L (Normal) Range: 25-115 46-Bxz-472737:20 Basic Metabolic Profile (BMP) Comments: Test performed at:[address] [id number] GAP 6 (Normal) Range: 5-15 CO2 27.0 mmol/L (Normal) Range: 21.0-32.0 CL 105 mmol/L (Normal) Range: 98-107 K 4.4 mmol/L (Normal) Range: 3.5-5.1 NA 138 mmol/L (Normal) Range: 136-145 CA 9.5 mg/dL (Normal) Range: 8.5-10.1 BUN/CRE 26.4 {RATIO} (Abnormal) Range: 10-20 CREAT,SERUM 0.87 mg/dL (Normal) Range: 0.55-1.20 Comments: Please note revised CREATININE reference range zwquqcaui64/22/2015. BUN 23 mg/dL (Abnormal) Range: 7-18 GLU 90 mg/dL (Normal) Range: 70-110 50-Bwp-684378:20 CBC W/Diff, Automated Comments: Test performed at:[facility] [address] [place] [address] Absolute Lymph 2.68 {X10_3/ul} (Normal) [...] 4.2-5.4 WBC 7.6 K/mm3 (Normal) Range: 4.4-11.0 43-Lxs-235108:20 Lipase Comments: Test performed at:[facility] [address] [place] [id number] LIPASE 117 U/L (Normal) Range: 73-393 12-Rjz-328399:25 Urinalysis, Office (05092) UA - LEUKOCYTE ESTERASE Trace (Normal) UA - NITRITE Negative (Normal) URINE UROBILINGN IVAN TIMED 2 mg/dL (Normal) UA - PROTEIN Negative mg/dL (Normal) UA - PH 6.5 (Normal) UA - BLOOD Negative (Normal) UA - SPECIFIC GRAVITY 1.010 (Normal) UA - KETONES Negative mg/dL (Normal) UA - BILIRUBIN Negative (Normal) UA - GLUCOSE Negative (Normal) 38-Lch-196719:00 Rapid Strep Test, Office (70408) Rapid Strep Test, Office Negative (Normal) 3-Glk-341116:15 CBC W/Diff, Automated Comments: Test performed at:[facility] [address] [place] [address] Absolute Lymph 2.39 {X10_3/ul} (Normal) Range: [...] 4.2-5.4 WBC 6.1 K/mm3 (Normal) Range: 4.4-11.0 1-Szw-127385:15 Comprehensive Metabolic Profil Comments: 'TROP' Serial specimen #1, #2, #3, or #4: 1Test performed at:[facility] [address] [place], [place] [id number] GAP 3 (Abnormal) Range: 5-15 CO2 31.0 [...] 7-18 GLU 83 mg/dL (Normal) Range: 70-110 5-Pzb-143938:15 CPK Total, Creatine Kinase Comments: 'TROP' Serial specimen #1, #2, #3, or #4: 1Test performed at:[facility] [address] [place] [address] CPK TOTAL 59 U/L (Normal) Range: 26-192 1-Hlk-770312:15 D-Dimer Quantitative (DVT/PE) Comments: Test performed at:[facility] [address] [place] [address] D-DIMER QUANT 1.01 {FEU/ug/m} (Abnormal) Range: 0.27-0.49 Comments: D-Dimer ELEVATED (>0.49): Additional studies and clinicalassessments are indicated to conclude diagnosis of:Deep Vein Thrombosis (DVT) or Pulmonary Embolism (PE) :15 Myoglobin, Serum Comments: Test performed at:[facility] [address] [address] Myoglobin, Ser 48 ng/mL (Normal) Range: 25-58 Comments: Performed at: [facility] [id number] Director: Rigoberto Aguilar PhD, Phone: [phone] 4-Cxn-606866:15 Thyroid Stim Hormone (TSH) Comments: 'TROP' Serial specimen #1, #2, #3, or #4: 1Test performed at:[facility] [address] [place] [address] TSH 1.21 {uIU/mL} (Normal) Range: 0.358-3.74 5-Mov-020647:15 Troponin-I Comments: 'TROP' Serial specimen #1, #2, #3, or #4: 1Test performed at:[facility] [address] [place] [address] TROPONIN-I < 0.02 ng/mL (Normal) Comments: TROPONIN-I EXPECTED VALUES <0.05 NEGATIVE 0.06 - 0.59 AT RISK OF [place] > OR = 0.60 SUGGEST [place] 62-Nyf-77080:28 Rapid Strep Test, Office (32817) Rapid Strep Test, Office Negative (Normal) 17-Zfr-907973:13 HELICOBACTER PYLORI ANTIBODY Comments: PATIENT WAS FASTINGPERFORMED BY: [place] [id number] [facility] [id number] PROFILE IgG, IgM, IgA (18563) H. pylori, IgG Abs <0.9 U/mL (Normal) Range: 0.0-0.8 Comments: Negative <0.9 Indeterminate 0.9 - 1.0 Positive >1.0 33-Tma-139344:13 Amylase (03875) Comments: PATIENT WAS FASTINGPERFORMED BY: [facility]6370 [facility] [id number] Amylase, Serum 51 U/L (Normal) Range: 31-124 54-Nfa-973482:13 Lipase (72012) Comments: PATIENT WAS FASTINGPERFORMED BY: [facility]6370 [facility] [id number] Lipase, Serum 28 U/L (Normal) Range: 0-59 72-Brx-648491:13 Sed Rate Erythrocyte (15637) Comments: PATIENT WAS FASTINGPERFORMED BY: [facility]6370 [facility] [id number] Sedimentation Rate-Westergren 5 mm/h (Normal) Range: 0-40 51-Quf-527052:13 Metabolic Panel, Comprehensive Comments: PATIENT WAS FASTINGPERFORMED BY: [place] [id number] [facility] [id number] (40686) ALT (SGPT) 14 [iU]/L (Normal) Range: 0-32 [...] Glucose, Serum 82 mg/dL (Normal) Range: 65-99 57-Inx-948687:13 CBC with manual diff (96498) Comments: PATIENT WAS FASTINGPERFORMED BY: [facility]9616 [facility] [id number] Immature Grans (Abs) 0.0 {x10E3/uL} (Normal) Range: [...] 3.77-5.28 WBC 6.3 {x10E3/uL} (Normal) Range: 3.4-10.8 53-Bli-254441:58 Pathology Report Comments: PERFORMED BY: KWCYT [facility] [place] Slkh50224 [facility] [id number] BY: LX [facility] Tazjorj53764 [facility] [id number] Information: [id number] See MATER Comments: Material submitted: .SHAVE LT [...] ISTRISECTED AND SUBMITTED IN TOTO.XJW/TMZPathologist provided ICD-9:078.10CPT .373723 50-Keg-452827:42 TSH (93614) Comments: PATIENT NOT FASTINGPERFORMED BY: [facility]6370 [facility] [id number] TSH 3.150 {uIU/mL} (Normal) Range: 0.450-4.500 26-Ygu-411514:53 Microscopic Examination Comments: PERFORMED BY: [facility]6370 [facility] [id number] Bacteria None seen (Normal) Epithelial Cells (non renal) 0-10 {/hpf} (Normal) Range: 0 - 10 RBC 0-3 {/hpf} (Normal) Range: 0 - 3 WBC 0-5 {/hpf} (Normal) Range: 0 - 5 72-Jir-954973:53 MICROALBUMIN: CREATININE RATIO Comments: PERFORMED BY: [facility]6370 [facility] [id number] (42659) AND (58693) Microalb/Creat Ratio 4.5 {mg/g_creat} (Normal) Range: 0.0-30.0 Microalbumin, Urine 1.2 ug/mL (Normal) Range: 0.0-17.0 Creatinine, Urine 26.5 mg/dL (Normal) Range: 15.0-278.0 71-Tcj-149566:53 TSH (95805) Comments: PERFORMED BY: [facility]6370 [facility] [id number] TSH 4.070 {uIU/mL} (Normal) Range: 0.450-4.500 03-Umj-020932:53 URINALYSIS, W/ MICRO (89264) Comments: PERFORMED BY: [facility] [id number] Microscopic Examination See below: (Normal) Nitrite, Urine Negative (Normal) Urobilinogen,Semi-Qn 0.2 mg/dL (Normal) Range: 0.0-1.9 Bilirubin Negative (Normal) Occult Blood Negative (Normal) Ketones Negative (Normal) Glucose Negative (Normal) Protein Negative (Normal) WBC Esterase Trace (Abnormal) Appearance Clear (Normal) Urine-Color Yellow (Normal) pH 7.0 (Normal) Range: 5.0-7.5 Specific [place] 1.007 (Normal) Range: 1.005-1.030 62-Zbm-760517:53 METABOLIC PANEL, COMPREHENSIVE Comments: PERFORMED BY: [facility]6370 [facility] [id number] (23560) ALT (SGPT) 18 [iU]/L (Normal) Range: 0-40 [...] Glucose, Serum 67 mg/dL (Normal) Range: 65-99 92-Ppf-877564:53 CBC WITH MANUAL DIFF (37869) Comments: PERFORMED BY: [facility] HospitalNumjbk2349 [facility] [id number] Immature Grans (Abs) 0.0 {x10E3/uL} (Normal) Range: [...] 3.80-5.10 WBC 6.3 {x10E3/uL} (Normal) Range: 4.0-10.5 2-Dxv-515839:49 LOWER EXT.JOINT ONLY (ROUTINE) Radiology Report See [...] thinning of the medial femorotibial compartment (coronal omwfjv01 images 7-13). Normal medial femoral condyle and [...] 01/05/11 2255 Sign by: Isaac Spence MD 19-Zmi-112775:54 MYOCARD PERF STRESS/REST MULT Radiology Report See Note (Normal) Comments: PHARMACOLOGIC MYOCARDIAL PERFUSION SCAN HISTORYA 65-year-old lady with a history of chest pain. QFOCXPLCJ94.5 mCi of Sestamibi was injected at rest. [...] Jahaira Carlin scribed on 08/25/10 1154 by URTH LOPEZSign by Jace Carlin on 08/26/10 1359 Sign by: Jace Carlin 04-Bax-949467:58 CKMB Comments: Please Note: TROPONIN REFERENCE RANGE CHANGEEffective MAY 31, 2009. CPKMB < 0.5 ng/mL (Normal) Range: 0.0-5.0 Comments: CK-MB and RI Interpretation MB Relative Index Non-AMI <or= 5 NA Indeterminate > 5 <or= 4 AMI > 5 > 4 CPK TOTAL 43 U/L (Normal) Range: 26-192 Comments: Please note: Revised Creatinine Kinase (CK) Reference ramge effective 06/29/10. 38-Fku-445981:58 TROPONIN-I < 0.02 ng/mL (Normal) Comments: Please Note: TROPONIN REFERENCE RANGE CHANGEEffective MAY 31, 2009. Comments: TROPONIN-I EXPECTED VALUES <0.05 NEGATIVE 0.06 - 0.59 AT RISK OF TX > OR = 0.60 SUGGEST TX 7-Wyz-856688:32 KNEE,4 OR MORE VIEWS Radiology Report See [...] on 08/09/10 1256 Sign by: Cesar Jaime 67-Hlx-889569:36 Influenza A, H1N1, RT PCR Comments: PERFORMED BY: [employer] [address] [id number] BY: [address] [id number] Information: SRC:NL Subtype Novel H1N1 by Negative (Normal) PCR Type Influenza A by Negative (Normal) PCR Viral FLUABN (Normal) Comments: PERFORMED BY: [employer] [address] [id number] BY: [address] [id number] :36 Culture,Rapid,Influenz Comments: Negative:No Influenza A or B detected. a :22 Rapid Flu (21806 x 2) Influenza A Ag neg (Normal) 4-Muj-744860:10 CHEST WITH CONTRAST Radiology Report See Note (Normal) Comments: Exam Number: [id number] CLINICAL:This is a 64-year-old female patient with [...] (PE)CRITICAL VALUE REPEATED AND VERIFIED. CALLED TO [address]12/06/09 1320 DEVON ALVARADO.RESULTS READ BACK BY LAN . :42 PRO TIME INR 1.0 (Normal) PROTIME 10.0 s (Normal) Range: 9.1-11.7 0-Ehk-191626:04 BRAIN/HEAD W/WO CONTRAST Radiology Report See Note (Normal) Comments: Exam Number: [id number] CT SCAN OF THE BRAIN HISTORYPatient hit [...] abnormality identified. Reported By: VALERIA ANDREW M.D. 89-Mtv-664888:17 TSH (43145) Comments: PATIENT NOT FASTINGClinical Information: [id number] PERFORMED BY: [facility]6370 [facility] [id number] TSH 0.534 {uIU/mL} (Normal) Range: 0.450-4.500 90-Hlv-851900:01 TSH (58562) Comments: PATIENT NOT FASTINGClinical Information: ADD 022280, [id number] PERFORMED BY: [facility] HospitalFszvix6929 [facility] [id number] TSH 0.219 {uIU/mL} (Abnormal) Range: 0.450-4.500 Comments: [...] {uIU/mL} (Abnormal) Range: 0.358-3.74 :22 PT/INR, Office (81375) Comments: done BC INR 2.7 (Normal) :56 PT/INR, Office (34750) Comments: done BC INR 1.4 (Normal) :44 PT/INR, Office (79643) INR 2.7 (Normal) Comments: aw :43 PT/INR, Office (36198) INR 1.0 (Normal) Comments: aw :00 PT/INR, Office (87226) INR 4.8 (Normal) :33 PT/INR, Office (69958) INR 1.6 (Normal) Comments: aw :11 PT/INR, Office (87620) INR 1.2 (Normal) Comments: aw :30 PT/INR, Office (84579) INR 2.6 (Normal) :22 PT/INR, Office (98132) INR 3.5 (Normal) :24 PT/INR, Office (51310) INR 2.5 (Normal) :02 TSH (05537) Comments: PATIENT NOT FASTINGPERFORMED BY: [facility] Ibflka8211 [facility] [id number] TSH 4.248 {uIU/mL} (Normal) Range: 0.450-4.500 :02 METABOLIC PANEL, COMPREHENSIVE Comments: PATIENT NOT FASTINGPERFORMED BY: [facility] Inzfms0590 [facility] [id number] (50191) A/G Ratio 1.5 (Normal) Range: 1.1-2.5 Albumin, [...] Serum 96 mg/dL (Normal) Range: 65-99 If -Citizen Of [place] >59 mL/min/1.73 Comments: Note: Persistent reduction for [...] Sodium, Serum 142 mmol/L (Normal) Range: 135-145 9-Dgy-951847:02 CBC WITH MANUAL DIFF (67438) Comments: PATIENT NOT FASTINGClinical Information: ADD DRAW FEE 861015 ADD J 49040 PERFORMED BY: LabVictor[place] 5230870 [facility] [id number] Baso (Absolute) 0.0 {x10E3/uL} (Normal) Range: 0.0-0.2 [...] {x10E3/uL} (Normal) Range: 4.0-10.5 :44 PT/INR, Office (58936) INR 1.8 (Normal) PT (PROTHROMBIN TIME) inr 1.8 s (Normal) Range: 11.5-13.5 :33 Rapid Strep Test, Office (41000) Comments: neg Rapid Strep Test, Office Negative (Normal) :53 PT/INR, Office (37090) INR 1.6 (Normal) PT (PROTHROMBIN TIME) INR-1.6 s (Normal) Range: 11.5-13.5 :59 PT/INR, Office (59295) INR 3.3 (Normal) Comments: :08 CHEST WITH CONTRAST Radiology Report See Note (Normal) Comments: Exam Number: [id number] CT CHEST WITH CONTRAST. REASON FOR EXAMINATIONLeft [...] Clear lungs. Reported By: ORIANA BERNARD M.D. 08-Hdn-428914:08 CORONALS,SAG,MULTI,OBL,3-D REC Radiology Report See Note (Normal) Comments: Exam Number: [id number] CT CHEST WITH CONTRAST. REASON FOR EXAMINATIONLeft [...] Clear lungs. Reported By: ORIANA BERNARD M.D. 76-Kyr-130688:08 PELVIS WITH CONTRAST Radiology Report See Note (Normal) Comments: Exam Number: [id number] CT OF ABDOMEN AND PELVIS WITH INTRAVENOUS [...] ally indicated. Reported By: ORIANA BERNARD M.D. 92-Arm-218647:07 ABDOMEN WITH CONTRAST Radiology Report See Note (Normal) Comments: Exam Number: [id number] CT OF ABDOMEN AND PELVIS WITH INTRAVENOUS [...] ally indicated. Reported By: ORIANA BERNARD M.D. 18-Eue-493676:39 PT/INR, Office (95258) INR 2.7 (Normal) :29 PT/INR, Office (22881) INR 3.1 (Normal) :37 PT/INR, Office (42376) INR 3.1 (Normal) Comments: AW :08 PT (Prothrobim Time) (14908) Comments: INR; PATIENT NOT FASTINGClinical Information: ADD DRAW FEE 179113 ADD J 38108 PERFORMED BY: VICKEY LabCoDaniel Ville 8597070 [facility] [id number] Prothrombin Time 15.4 {sec} (Abnormal) Range: 8.7-11.5 [...] Report See Note (Normal) Comments: Exam Number: [id number] CT SCAN OF CHEST HISTORYShort of breath. [...] lower lobe. Reported By: VALERIA ANDREW M.D. 54-Itn-82869:52 CHEST WITH CONTRAST Radiology Report See Note (Normal) Comments: Exam Number: [id number] CT SCAN OF CHEST HISTORYShort of breath. [...] lower lobe. Reported By: VALERIA ANDREW M.D. 63-Pwf-24357:5 C-REACTIVE PROT 8.34 mg/L (Abnormal) Comments: STAT [...] s (Normal) Range: 10.6-13.2 :29 Rapid Flu (02190 x 2) INFLUENZA IMMUNOASSY DIRECT OPTICAL OBSERV negative (Normal) :38 Influenza A+B Ag, EIA Comments: Clinical Information: SRC:NL PERFORMED BY: [employer] Rysyko7057 [facility] [id number] Influenza A Ag, EIA Negative (Normal) Influenza B Ag, EIA Negative (Normal) :35 Basic Metabolic Panel (8) Comments: Clinical Information: ADD 232004,L95183 PERFORMED BY: [employer] [facility] [address] [id number] BUN 24 mg/dL (Normal) Range: 5-26 BUN/Creatinine [...] TSH 3.031 {uIU/mL} Comments: PERFORMED BY: [facility] Rckwxf3008 [address] [place] [id number] :35 (Normal) Range: 0.350-5.500 :39 CBCD,SMEAR DIFF [...] : FOLLOW UP IN 1 WEEK with [facility] Indication: Hypertension Allergic rhinitis due to [...] Indication: Syncope Planned Observations URINE BECKY CULTURE-IDENTIFICATN (61966)Indication: Urinary incontinence On: 94-Dvl-81773:31 Request Urinalysis, Office (47355)Indication: Urinary incontinence On: 48-Jel-65102:44 Request FECAL OCCULT- Tubes sent home (71000)Indication: Encounter for screening for malignant neoplasm of colon (Renamed from Special screening for malignant neoplasms, colon) On: 20-Xqk-881049:12 Request TSH (67818)Indication: Hypothyroidism On: 15-Yks-242434:36 Request T4, FREE (THYROXINE) (01161)Indication: Hypothyroidism On: :35 Request T3, FREE (TRIDOTHYRONINE) (91954)Indication: Hypothyroidism On: 79-Exg-038937:35 Request URINE BECKY CULTURE-IVAN COL COUNT (61250)Indication: UTI symptoms On: 50-Brw-416063:17 Request LIPASE (09355)Indication: Abdominal pain On: 05-Kna-122761:09 Request AMYLASE (22394)Indication: Abdominal pain On: 12-Hdh-677198:09 Request CBC, Platelets & Auto Diff (31707)Indication: Abdominal pain On: :08 Request Metabolic Panel, Basic (09584)Indication: Abdominal pain On: 44-Zjq-279649:08 Request TSH (53992)Indication: Hypertension On: :08 Request CBC, Platelets & Auto Diff (11021)Indication: Hypertension On: 3-Bmy-149102:06 Request Metabolic Panel, Comprehensive (88102)Indication: Hypertension On: 0-Yes-629292:05 Request D-Dimer (99759)Indication: Cramp in lower leg On: :02 Request MYOGLOBIN (57637)Indication: Other chest pain On: 5-Gtc-242528:02 Request CPK MB FRACTION (11942)Indication: Other chest pain On: 8-Cxw-983207:01 Request ASSAY, TROPONIN, QUANTITATIVE (aka Troponin I) (69695)Indication: Other chest pain On: 0-Rvt-207537:01 Request HEPATIC FUNCTION PANEL (09681)Indication: FUNGUS, NOS On: 61-Xoc-137425:54 Request MICROALBUMIN URINE QUANT (07903)Indication: Hypertension On: 17-Jhd-638133:58 Request CREATININE, URINE (86272)Indication: Hypertension On: 35-Wia-079973:58 Request Troponin I (29801)Indication: Other chest pain On: 39-Lql-449193:12 Request CPK MB FRACTION (66581)Indication: Other chest pain On: 83-Cyi-313726:12 Request CREATINE KINASE TOTAL (06257)Indication: Other chest pain On: 52-Icm-776852:12 Request D-Dimer (32564)Indication: Wheezing On: 05-Dec-20099:23 Request Comments: stat TSH (97871)Indication: Abnormal TSH On: 85-Ofi-849680:12 Request TSH (98599)Indication: Abnormal TSH On: 72-Vmp-674836:33 Request LIPID PANEL (01239)Indication: Hypercholesteremia On: 78-Eja-77706:46 Request Comments: repeat in Feb 06 fasting LIPOPROTEIN, BLD, BY NMR (90270)Indication: Hypercholesteremia On: 81-Eac-23211:46 Request Comments: repeat Feb 06 fasting TSH (THYROID STIMULATING HORMONE) (09827)Indication: Abnormal TSH On: 93-Lfk-063827:51 Request CBC with manual diff (17613)Indication: Screening for deficiency anemia On: 52-Zaw-843538:12 Request Metabolic Panel, Comprehensive (14924)Indication: Screening for hyperlipidemia On: 39-Zfv-779033:11 Request Lipid Panel (15696)Indication: Screening for hyperlipidemia On: 44-Ptz-261244:11 Request TSH (15753)Indication: Hypothyroidism On: 32-Sae-739960:10 Request PT/INR, Office (78907)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 On: 57-Ulo-448109:38 Request D-Dimer (49463)Indication: Wheezing On: 92-Gzm-26702:57 Request Comments: stat C-Reactive Protein (58513)Indication: Wheezing On: 99-Vbs-50978:53 Request Comments: stat PT/INR, Office (86535)Indication: superficial thrombophlebitis On: 48-Wha-363193:08 Request PT (Prothrobim Time) (19385)Indication: superficial thrombophlebitis On: 50-Kel-47331:09 Request TSH (41636)Indication: Hypothyroidism On: :14 Request Lipid Panel (46566)Indication: Hypertension On: :14 Request HEPATIC FUNCTION PANEL (98351)Indication: Hypertension On: :14 Request INFLUENZA VIRUS ANTIBDY (70998)Indication: Influenza due to influenza A virus with upper respiratory signs On: :34 Request TSH (38616)Indication: Hypothyroidism On: 9-Tqp-022748:41 Request LIPID PANEL (39098)Indication: Hypertension On: 0-Nqn-907095:41 Request METABOLIC PANEL, COMPREHENSIVE (52510)Indication: Hypertension On: 3-Agy-210338:41 Request Comments: all labs 3-07 not rountine CBC WITH MANUAL DIFF (91474)Indication: Hypertension On: 7-Eyr-629599:41 Request TSH (32671)Indication: Syncope On: 46-Iei-646167:26 Request METABOLIC PANEL, COMPREHENSIVE (66396)Indication: Syncope On: 47-Rjr-519543:26 Request CBC (AUTO) (29633)Indication: Syncope On: 68-Afj-449239:26 Request Planned Procedures Aerosol Treatment (49204)By: On: 10-Jan-2018 Intent Serena Quiñonez CNP, CNP, Mary E SCREENING DIGITAL TOMOSYNTHESIS On: 02-Nov-2016 Intent OF BREAST (30582)By: Serena Quiñonez CNP, CNP, Mary E DEXA SCAN AXIAL SKELETON On: 02-Nov-2016 Intent (69415)By: Serena Quiñonez CNP, CNP, Mary E Radiology - ChestBy: Olamide MARTINEZ, On: 17-Aug-2016 Intent Serena Leblanc CNP Comments: Doretha Quiñonez Solu -Medrol Injection, 125 mg On: 17-Aug-2016 Intent (J2930)By: Olamide MARTINEZ BrenYonathan Quiñonez CNP Bren Solu -Medrol Injection, 125 mg On: 17-Aug-2016 Intent (J2930)By: Olamide MARTINEZ Bren Comments: Lot:[id number]:11/2018Dose:125mgRoute:im Site:r [facility] By:ALEN signed Olamide MARTINEZ Bren Aerosol Treatment (82611)By: On: 17-Aug-2016 Intent Olamide MARTINEZ BrenYonathan Quiñonez CNP Bren MAMMOGRAM, SCREENING, BOTH BREAST On: 13-Jul-2016 Intent (76899)By: Olamide MARTINEZ BrenYonathan Quiñonez CNP Bren DEXA SCAN AXIAL SKELETON On: 13-Jul-2016 Intent (64032)By: Olamide MARTINEZ BrenYonathan Quiñonez CNP Bren CT [...] 02-Nov-2014 Intent E Olamide MARTINEZ Bren EKG ([id number])By: Serean Quiñonez CNP On: 02-Nov-2014 Intent Olamide MARTINEZ [...] Doppler - RightBy: [place] On: 09-Oct-2013 Intent Sreena MARTINEZ CNP, Mary E Radiology - Knee - RightBy: C[place]a On: 09-Oct-2013 Intent Serena MARTINEZ CNP, Mary E Nuclear Medicine - HIDA w/CPKBy: On: 28-Aug-2013 Intent Catalina Daly DO Ultrasound - GallbladderBy: On: 26-Aug-2013 Intent Catalina Daly DO Eprescribed prescriptions On: 26-Aug-2013 Intent ([id number])By: Catalina Daly DO Eprescribed prescriptions On: 06-Aug-2013 Intent ([id number])By: Nancy GIPSON, Micki Wright Aerosol Treatment ([id number])By: On: 29-Sep-2012 Intent Serena Quiñonez CNP, CNP, Mary E Toradol Injection, 30 mg On: 30-Apr-2012 Intent ([id number])By: Serena Quiñonez CNP, CNP, Mary E ELECTROCARDIOGRAM, COMPLETE (ECG) On: 28-Sep-2011 Intent ([id number])By: Serena Quiñonez CNP Comments: sinus rhythm Serena Quiñonez CNP Bio Z ([id number])By: Serena Quiñonez CNP On: 28-Sep-2011 Intent E Serena Quiñonez CNP Comments: with in normal PHYSICAL THERAPY EVALUATION On: 02-Jan-2011 Intent ([id number])By: Serena Quiñonez CNP, CNP, Mary E MRI - Knee(s) - LeftBy: Olamide On: 02-Jan-2011 Intent Serena MARTINEZ CNP, Mary E Nuclear Stress Test/Stress On: 21-Aug-2010 Intent SPECT/AdenosineBy: Serena Quiñonez CNP, CNP, Mary E EKG ([id number])By: Serena Quiñonez CNP On: 21-Aug-2010 Intent Serena Quiñonez CNP PHYSICAL THERAPY EVALUATION On: 08-Aug-2010 Intent ([id number])By: Serena Quiñonez CNP, CNP, Mary E Radiology [...] of PE Please do today Aerosol Treatment ([id number])By: On: 05-Dec-2009 Intent Serena Quiñonez CNP, CNP, Mary E Pulse Oximetry ([id number])By: Olamide On: 05-Dec-2009 Intent Serena MARTINEZ CNP, Mary E CT - Brain/HeadBy: Olamide MICHELLE, On: 25-Aug-2009 Intent Serena Leblanc CNP DESTRUCT B9 LESION, 1-14 On: 20-Mar-2009 Intent ([id number])By: Micki Cruz MD Doppler Ultrasound OtherBy: Olamide On: 18-Oct-2008 Intent Serena MARTINEZ CNP, Mary E CT - ChestBy: Micki Cruz MD On: 22-Mar-2008 Intent Comments: copyy of both ct to Dr. yeyo jules [place] and Dr. meehan CT - Abdomen & PelvisBy: Nancy On: 22-Mar-2008 Intent Micki GIPSON Pulse Oximetry ([id number])By: On: 22-Mar-2008 Intent RAMA Webster Pulse Oximetry ([id number])By: On: 16-Mar-2008 Intent RAMA Webster Echo CompleteBy: Micki Cruz MD On: 11-Mar-2008 Intent Kyle Vancoymcin 500mg/premixedBy: On: 11-Mar-2008 Intent Micki Cruz MD Pulse Oximetry ([id number])By: On: 02-Mar-2008 Intent RAMA Webster Pulse Oximetry ([id number])By: Olamide On: 26-Feb-2008 Intent Serena MARTINEZesa OUTREACH LIAISON, Bren CT - Chest (IV Contrast On: 26-Feb-2008 Intent Needed)By: Serena Quiñonez CNP Comments: PE protocolstatSTAT CT shows PE to be admitted Serena Quiñonez CNP Solu -Medrol Injection, 125 mg On: 26-Feb-2008 Intent ([id number])By: Serena Quiñonez CNP Comments: waiver signedAmt: 2mlLot: [id number]: 09/2010Route: IMSite: right hipTolerated: wellGiven By: RADAMES Ta CNP, Mary E Inhaler Demonstration ([id number])By: On: 26-Feb-2008 Intent Olamide MARTINEZ BrenYonathan Quiñonez CNP Bren Aerosol Treatment ([id number])By: On: 26-Feb-2008 Intent Serena Quiñonez CNP, CNP Serena Comments: done E Venous Doppler - RightBy: Nancy On: 27-Nov-2007 Intent Micki GIPSON Comments: leg 2 weeks DXA, BONE DENSITY, AXIAL SKELETON On: 06-Nov-2007 Intent ([id number])By: Micki Cruz MD Comments: estrogen deficient MAMMOGRAM, SCREENING, BOTH On: 06-Nov-2007 Intent BREASTS ([id number])By: Micki Cruz MD Pulse Oximetry ([id number])By: On: 06-Nov-2007 Intent RAMA Webster Pulse Oximetry ([id number])By: Alex On: 24-Sep-2007 Intent Dana Comments: 98% Aerosol Treatment ([id number])By: On: 05-Aug-2007 Intent Olamide MARTINEZ BrenYonathan Quiñonez CNP Bren Spirometry ([id number])By: Nancy On: 27-May-[address] [...] TSH : DISCONTINUED - T4, FREE (THYROXINE) ([id number]) Indication: Abnormal TSH Abnormal TSH : DISCONTINUED - T3, FREE (TRIDOTHYRONINE) ([id number]) Indication: Abnormal TSH Abnormal TSH : DISCONTINUED - TSH (THYROID STIMULATING HORMONE) ([id number]) Indication: Abnormal TSH Encounter for screening for [...] NOS : DISCONTINUED - HEPATIC FUNCTION PANEL ([id number]) Indication: FUNGUS, NOS Hypertension : DISCONTINUED - TSH ([id number]) Indication: Hypertension GERD (gastroesophageal reflux disease) : [...] worse-full End: 30-Dec-2017 11:33 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 He is not doing well and [...] The patient does have durable power of [place] attorney and living will. The patient has [...] For Left Knee replacement Dr. Hernandez in [place] Aug 09, 2015. When pt had Rt [...] (obesity ). 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
--- OUTSIDE RECORDS SUMMARY | 2018-07-24 21:23 | XMS RPT_ITS | Continuity of Care Document ---
:1945 External Reference #:[id number] Author Organization [facility] Address [address] [facility] [address] [place] [address] Phone Care Team Providers Name Role Phone Serena Quiñonez CNP Unavailable Anette Connolly Unavailable Dr. Acosta Talbot Unavailable Michael Duncan Unavailable Logan El DO Unavailable Slarb INFORMATICS COORDINATOR, Cheryle Unavailable Unavailable Long INFORMATICS COORDINATOR, Kalie L Unavailable Unavailable long, yuko Unavailable [...] 715.90) Comments: stable on gabapentin seen at [facility] arthritis neck arthritis and knee pain , has seen Dr. Coughlin for neck pain for injectionwas seen at [facility] arthritis given gabapentinwas taking melox icam daily [...] Serena Mcmanus Start : 08-Apr-2018 Active Comments:OARRS dgmlalzmM35.9f43.21Thirty Losartan Potassium 50 MG Oral Tablet 1 [...] Quantity: 2 {Tablet} Refills: 1 Ordered:10-Jan-2018 Long INFORMATICS COORDINATORKalie Start : 10-Jan-2018 Active ALEVE, 220MG (Oral [...] 27-Jun-2015 End : 04-Jul-2015 Inactive CITRACAL/VITAMIN D, 771-190GX-XBYR (Oral Tablet) 2 QD for 0 days Refills: 0 Ordered:03-Oct-2011 Abby Jones LPN End : 03-Oct-2011 Inactive CLARINEX REDITABS, 5MG (Oral Tablet Dispersible) 1 (one) Tablet Disperse daily for 0 days Quantity: 5 {Tablet_Disperse} Refills: 0 Ordered:06-Jul-2010 RAMA Webster Start : 05-Dec-2009 End : 06-Jul-2010 Inactive CORTISPORIN, 3.5-93249-7 (Otic Solution) 4 Solution Solution tid for [...] {Capsule} Refills: 0 Ordered:11-Apr-2018 Olamide MARTINEZ Serena Cabnamichelle MARTINEZ Serena Mcmanus Start : 11-Apr-2018 End [...] Quantity: 30 {Tablet} Refills: 0 Ordered:18-Nov-2015 Olamide WELDER GAS, Serena Patton WELDER GAS, Serena Mcmanus Start : 14-Oct-2015 End : 13-Nov-2015 Inactive LEVAQUIN, 500MG (Oral Tablet) 1 Tablet daily for 10 days Quantity: 10 {Tablet} Refills: 0 Ordered:01-Oct-2012 Olamide WELDER GAS, Serena Patton CNP, Serena Mcmanus Start : [...] : 08-Aug-2010 End : 28-Sep-2011 Inactive NYSTOP, 121119LXYW/GM (External Powder) Powder take as directed for [...] : 20-Jun-2012 Discontinued Comments:This order discontinued per [facility]. OXYCODONE HCL, 5MG (Oral Tablet) 1 (one) [...] Quantity: 30 {Capsule} Refills: 6 Ordered:15-Dec-2014 Slarb INFORMATICS COORDINATOR, Cheryle Start : 20-Feb-2013 End : 15-Dec-2014 Discontinued TESSALON PERLES, 100MG (Oral Capsule) 1 (one) Capsule tid for 0 days Quantity: 30 {Capsule} Refills: 0 Ordered:11-Aug-2007 Dana Johnson Start : 11-Aug-2007 End : 06-Nov-2007 Discontinued TOPICORT, 0.25% (External Cream) 1 (one) Cream bid for 0 days Quantity: 1 {Tube} Refills: 0 Ordered:02-Nov-2014 Slarb INFORMATICS COORDINATOR, Cheryle Start : 30-Jun-2014 End : 02-Nov-2014 Discontinued TYLENOL WITH CODEINE #3, 300-30MG (Oral Tablet) 1 (one) Tablet q6-8 hrs prn for 0 days Quantity: 30 {Tablet} Refills: 0 Ordered:27-Jun-2015 Slarb INFORMATICS COORDINATOR, Cheryle Start : 11-Mar-2015 End : 27-Jun-2015 Discontinued TYLENOL, 325MG (Oral Tablet) 1 PRN for 0 days Refills: 0 Ordered:27-Jun-2015 Slarb INFORMATICS COORDINATOR, Cheryle Start : 02-Mar-2015 End : 27-Jun-2015 [...] (M79.609, 729.5) Status: 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 (Z79.01, V58.61) Status: [...] Study (HP) Result: Comments: See Note; NOTES: [facility] Imaging Services [address] [place] [address] Verdana 4d Dexa Bone Density Study (HP) MR#: [id number] Acct: [id number] Name: EVENS SERRANO Germaine Rep #: [id number] : 1945 F 71 From: Michael Noland MD PCP: Serena Quiñonez Status: REG CLI Study: Dexa Bone Density Study (HP) Date of Exam: 11/13/16 Exam# [id number] Ordering Dr: Kyle Quiñonez STUDY: DUAL ENERGY [...] Michael Noland MD at 7:57 EDT Tel [phone], Service support , CC: Serena Quiñonez Document Preparer Microfilming: Signed 13-Nov-2016 SCREENING MAMM (CAD), BILAT Result: Comments: See Note; NOTES: [facility] Imaging Services [address] [place] [address] Verdana 4d SCREENING MAMM (CAD), BILAT MR#: [id number] Acct: [id number] Name: TRINI SERRANO Rep #: [id number] : 1945 F 71 From: Michael Noland MD PCP: Serena Quiñonez Status: REG CLI Study: SCREENING MAMM (CAD), BILAT Date of Exam: 11/13/16 Exam# [id number] Ordering Dr: Yudith Quiñonez MAMMOGRAPHY - BILATERAL [...] y biopsy of a clinically suspicious abnormality. [id number] Electronically Signed: Michael Noland MD at 8:11 EDT Tel [phone], Service support , CC: Serena Quiñonez Document Preparer Microfilming: Signed 17-Aug-2016 Chest PA and Lateral Result: Comments: See Note; NOTES: [facility] Imaging Services [address] [place] [address] Verdana 4d Chest PA and Lateral MR#: [id number] Acct: [id number] Name: MAURICIO SERRANO p #: [id number] : 1945 F 71 From: Michael Noland MD PCP: Micki Cruz MD Status: REG CLI Study: Chest PA and Lateral Date of Exam: 08/17/16 Exam# [id number] Ordering Dr: Serena Quiñonez STUDY: X-RAY CHEST [...] Michael Noland MD at 14:44 EST Tel [phone], Service support [phone], CC: Serena Quiñonez; Micki Cruz MD Document Preparer Microfilming: Signed 03-Oct-2015 PT D/C Summary (1) Result: Comments: See Note; NOTES: [facility] [address] [place] [address] Fax REHABILITATION SE RVICES DISCHARGE SUMMARY MR#: [id number] Acct: [id number] Name: MAURICIO SERRANO Rep #: [id number] : 1945 70 From: Bolivar Newell DPT, OCS, CSCS Referring Dr.: OUT [facility] DOCTOR Status: REG RCR Eval Date: Discharge Date: HP - PT D/C Summary It has been my pleasure to treat MAURICIO SERRANO under orders from [facility] Doctor, SARATH HERNANDEZ for the diagnosis of [...] please feel free to call me at [phone]. Thank you for the referral of this patient. Sincerely, Bolivar Newell <Electronically signed by Bolivar Newell DPT, OCS, CSCS> 10/14 0646 CC: SARATH HERNANDEZ; Micki Cruz MD; OUT OF TOWN DOCTOR EBG Signed 09-Sep-2015 Re-Evaluation - PT (1) Result: Comments: See Note; NOTES: [facility] [address] [facility] [place], [place] [address] Fax REEVALUATION / ME DICARE RECERTIFICATION Inger 4d PHYSICAL THERAPY MR#: [id number] Acct: [id number] Name: MAURICIO SERRANO Rep #: [id number] : 1945 70 From: Bolivar Newell DPT, OCS, CSCS Referring DrPaxton: SHAHNAZ CHUN [facility] DOCTOR Status: REG R Insurance: Coupons Near Me Out of [facility] Doctor, SARATH HERNANDEZ It has been my [...] do not hesitate to contact me at [phone] by phone or if you have questions [...] Discharge Instruction Result: Comments: See Note; NOTES: [facility] Medical Records Department [address] [place] [address] Discharge Instruction 08/14/152021 MR#: [id number] Acct: [id number] Name: MAURICIO SERRANO Rep #: [id number] : 1945 70 From: Logan Keen MD PCP: Micki Cruz MD Status: DEP ER ED Disposition - Plan for ED Patient: Chief Complaint: Lower Extremity Injury Instructions: ED Dyspnea What to do if you have Problems For any increased pain, shortness of breath, bleeding, nausea or vomiting, chest pain, or any unexpected problems, contact your do ctor. Call [facility] ([phone]) or report to the closest Emergency Room. Call 911 if necessary. 08/18/15 0746 <Electronically signed by Logan Keen MD> Date ____ Logan Keen MD Cosigner Signature (If Indicated): Date CC: Micki Cruz MD 18-Aug-2015 Emergency Department Summary Result: Comments: See Note; NOTES: [facility] Medical Records Department [address] [place] [address] Emergency Department Summary MR#: [id number] Acct: [id number] Name: MAURICIO SERRANO Rep #: [id number] : 1945 70 From: Logan Keen MD PCP: Micki Cruz MD Status: DEP ER DATE OF SERVICE: 08/14/2015 CHIEF COMPLAINT: Shortness of breath, leg swelling. HISTORY OF PRESENT ILLNESS: A 70-year-old female who is 5 days status post left total knee repair done at [place], presents with shortness of breath and leg [...] Discharge. Logan Keen MD T: NTS JOB: [id number] 08/18/15 0746 <Electronically signed by Logan stovall MD> Date Logan Keen MD Cosigner Signature (If Indicated): Date CC: Micki christine MD Date Dictated: 02/14/16 2022 Date Transcribed: 08/14/152021 Document Preparer Microfilming: Signed 14-Aug-2015 CTA Chest W/WO Contrast Result: Comments: See Note; NOTES: [facility] Imaging Services [address] [place] [address] Verdana 4d CTA Chest W/WO Contrast MR#: [id number] Acct: [id number] Name: MAURICIO DORAN Rep #: [id number] : 1945 F 70 From: Sandy Lundberg MD PCP: Micki Cruz MD Status: REG ER Study: CTA Chest W/WO Contrast Date of Exam: 08/14/15 Exam# [id number] Ordering Dr: Logan Velasquez MD STUDY: CTA [...] MD at 20:03 EST , Service support [phone], CC: Germaine Cruz MD; Logan Keen MD Document Preparer Microfilming: Signed 12-Aug-2015 Inital Evaluation (1) - PT Result: Comments: See Note; NOTES: [facility] [address] [place], [place] [address] Fax REHABILITATION SE RVICES INITIAL EVALUATION MR#: [id number] Acct: [id number] Name: MAURICIO SERRANO Rep #: [id number] : 1945 70 From: Bolivar Newell DPT, OCS, CSCS Referring Dr.: OUT OF TOWN DOCTOR Status: REG RCR Insurance: Coupons Near Me [employer] Date: Patient's Visit Information MAURICIO SERRANO is a 70 year old F, referred to Physical Therapy by Out of Town Doctor, ERENDIRA HERNANDEZ, with a diagnosis of L Knee TKA. Date of Evaluation: 08/11/15 Physical Therapist: Bolivar Newell - Visit Plan Frequency: 3x /Week Duration: 4-6 Weeks - Subjective Subjective: 2 days ago had L TKA at [place] by Dr. Salazar. Had bone on bone [...] for shoes but takes time. Has a single end sewer to get socks and pick things up [...] to be FAXED BACK to us at [phone] for Medicare purposes. Please let me know if there are questions or concerns regarding this plan of care. Conrad matos Signature: Date: <Electronically signed by Bolivar Newell DPT, OCS, CSCS> 08/12/15 0642 CC: SARATH HERNANDEZ; Micki shea MD; OUT OF TOWN DOCTOR EBG Signed For Medicare only, by signing this I certify the plan of care. Physicians Signature Date 12-Jul-2015 ELECTROCARDIOGRAM, COMPLETE (ECG) (09911) Comments: sinus rhythm within normal limits Result: [MEASUREMENTS ANALYSIS] Date of Test: 07/12/2015 13:50:06; Heart Rate: 72; AK Interval: 146; QRS: 90; QT Interval: 392; Corrected QT Interval (QTc): 413; P Wave Warri[place]ine: 47; QRS Wave Warriormine: 20; T Wave Warriormine: 51; Blood Pressure: 122/80 [ECG DIAGNOSTIC STATEMENTS] Date of Test: 07/12/2015 13:50:06; Summary: Sinus Rhythm WITHIN NORMAL LIMITS 30-Jun-2015 Abdomen/Pelvis without Cont Result: Comments: See Note; NOTES: [facility] Imaging Services [address] [place] [address] Verdana 4d Abdomen/Pelvis without Cont MR#: [id number] Acct: [id number] Name: MAURICIO SERRANO Rep #: [id number] : 1945 F 69 From: Bella Meade MD PCP: Micki Cruz MD Status: REG CLI Study: Abdomen/Pelvis without Cont Date of Exam: 06/30/15 Exam# [id number] Alexia england Dr: Serena Quiñonez STUDY: CT [...] at 10:49 EST Tel , Service support [phone], CC: Serena Quiñonez; Micki Cruz MD Document Preparer Microfilming: Signed 17-Feb-2015 Abdomen/Pelvis WITH Contrast Result: Comments: See Note; NOTES: [facility] Services [address] [place] [address] CAT Scan Report MR#: [id number] Acct: [id number] Name: MAURICIO SERRANO Rep #: [id number] : 1945 F 69 From: Gerald Persaud DO PCP: Micki Cruz MD Status: REG CLI Study: Abdomen/Pelvis WITH Contrast Date of Exam: 02/17/15 Exam# [id number] Ordering Dr: Micki Cruz MD [facility] DY: CT ABDOMEN AND PELVIS WITH [...] at 19:10 EDT Tel , Service support [phone], CC: Micki Cruz MD Document Preparer Microfilming: Signed 02-Nov-2014 Chest WITH Contrast Result: Comments: See Note; NOTES: [facility] Services [address] [place] [address] CAT Scan Report MR#: [id number] Acct: [id number] Name: MAURICIO SERRANO Rep #: [id number] : 1945 F 69 From: Michael Noland MD PCP: Micki Cruz MD Status: REG CLI Study: Chest WITH Contrast Date of Exam: 11/02/14 Exam# [id number] Ordering Dr: Serena Quiñonez STUDY: CTA CHEST [...] Michael Noland MD at 15:54 EDT Tel [phone], Service support [phone], CC: Serena Quiñonez; Micki Cruz MD Document Preparer Microfilming: Signed 15-Mar-2014 Toe(s) Min 2 Views Result: Comments: See Note; NOTES: [facility] Services [address] [place] [address] Radiology Report MR#: [id number] Acct: [id number] Name: MAURICIO SERRANO Rep #: [id number] : 1945 F 68 From: Romaine Tafoya DO PCP: Micki Cruz MD Status: REG CLI Study: Toe(s) Min 2 Views Date of Exam: 03/15/14 Exam# [id number] Ordering Dr: Serena Quiñonez STUDY: X-RAY LEFT [...] Tafoya DO 2 at 16:54 EDT Tel [phone], Service support [phone], RAD/Toe(s) Min 2 Views IMPRESSION: No acute abnormality of the left second toe. Electron ically Signed: Romaine Tafoya DO at 16:54 EDT Tel [phone], Service support [phone], CC: Serena Quiñonez; Mciki Cruz MD Document Preparer Microfilming: Signed 15-Feb-2014 Spine Cervical without Contras Result: Comments: See Note; NOTES: [facility] Services [address] [place] [address] CAT Scan Report MR#: [id number] Acct: [id number] Name: MAURICIO SERRANO Rep #: [id number] : 1945 F 68 From: Michael Noland MD PCP: Micki Cruz MD Status: REG CLI Study: Spine Cervical without Contras Date of Exam: 02/15/14 Exam# [id number] Ordering Dr: Micki Cruz MD STUDY: CT [...] degenerative changes, as described above. Electronically Signed: Micahel Noland MD at 14:08 E DT Tel [phone], Service support [phone], CC: Micki Cruz MD Document Preparer Microfilming: Signed 11-Feb-2014 Cerv Spine 4 or 5 Views Result: Comments: See Note; NOTES: [facility] [address] [place] [address] Radiology Report MR#: [id number] Acct: [id number] Name: MAURICIO SERRANO Rep #: [id number] : 1945 F 68 From: Julio Charles DO PCP: Micki Cruz MD Status: REG CLI Study: Cerv Spine 4 or 5 Views Date of Exam: 02/11/14 Exam# [id number] Ordering Dr: Serena Quiñonez STUDY: X-RAY - [...] Charles DO at 19 :48 EDT Tel [phone], Service support [phone], CC: Serena Cruz MD Document Preparer Microfilming: Signed 09-Oct-2013 Knee 4 or More Views Result: Comments: See Note; NOTES: [facility] [address] [place] [address] Radiology Report MR#: [id number] Acct: [id number] Name: MAURICIO SERRANO Rep #: [id number] : 1945 F 68 From: Romaine Tafoya DO PCP: Micki Cruz MD Status: REG CLI Study: Knee 4 or More Views Date of Exam: 10/09/13 Exam# [id number] Ordering Dr: Serena Quiñonez STUDY: X-RAY - [...] Romaine Tafoya DO at 19:01 EDT Tel [phone], Service support [phone], CC: Serena Cruz MD Document Preparer Microfilming: Signed 03-Sep-2013 Hepatobilliary Imaging Result: Comments: See Note; NOTES: [facility] Services [address] [place] [address] Nuclear Medicine Report MR#: [id number] Acct: [id number] Name: MAURICIO SERRANO Rep #: [id number] : 1945 F 68 From: Gene Diallo DO PCP: Micki Cruz MD Status: REG CLI Study: Hepatobilliary Imaging Date of Exam: 09/03/13 Exam# [id number] Ordering Dr: Caatlina Daly DO CLINICAL: 68-year-old female with reported [...] M.D. at 7:07 EST , Service support [phone], Fa x [phone] CLINICAL: 68-year-old female with reported history of [...] CC: Micki Cruz MD; Catalina Daly DO Document Preparer Microfilming: Signed 27-Aug-2013 Gallbladder Result: Comments: See Note; NOTES: [facility] Services [address] [place] [address] Ultrasound Report MR#: [id number] Acct: [id number] Name: MAURICIO SERRANO Rep #: [id number] : 1945 F 68 From: Michael Noland MD PCP: Micki Cruz MD Status: REG CLI Study: Gallbladder Date of Exam: 08/27/13 Exam# [id number] Ordering Dr: Catalina Daly DO STUDY: AB [...] M.D. at 10:31 EST , Service support [phone], CC: Micki Cruz MD; Catalina Daly DO Document Preparer Microfilming: Signed Family History Unknown Family Member Name [...] kg/m2 Body Surface Area Calculated 1.98 m2 81-Wnu-244823:53 Temperature 97.8 f Pulse 75 /min Comments: [...] kg/m2 Body Surface Area Calculated 2.05 m2 93-Ynu-255206:12 Temperature 97.8 f Comments: Method: Temporal Pulse [...] kg/m2 Body Surface Area Calculated 2.11 m2 87-Ytk-680882:58 Temperature 97.9 f Comments: Method: Oral Pulse [...] kg/m2 Body Surface Area Calculated 1.9 m2 60-Llq-395003:15 Temperature 98.3 f Comments: Method: Oral Pulse [...] 0.00 cm Results Date Description Value Details 71-Jko-305023:28 Metabolic Panel, Comprehensive Comments: Jan 2017; PATIENT NOT FASTINGPERFORMED BY: [facility]Co[facility] HospitalTpymsc22[address] [facility] [id number] ([id number]) ALT (SGPT) 14 [iU]/L (Normal) Range: 0-32 [...] Glucose, Serum 77 mg/dL (Normal) Range: 65-99 30-Fvm-723554:28 CALCIFEDIOL (83341) Comments: Jan 2017; PATIENT NOT FASTINGPERFORMED BY: [employer]6370 [facility] [id number] Vitamin D, 25-Hydroxy 33.0 ng/mL (Normal) Range: 30.0-100.0 Comments: Vitamin D deficiency has been defined by the [place] of[facility] Hospitalcine and an Endocrine Society practice guideline as alevel of serum 25-OH vitamin D less than 20 ng/mL (1,2).The Endocrine Society went on to further define vitamin Dinsufficiency as a level between 21 and 29 ng/mL (2).1. IOM ([place]by of Medicine). 2010. Dietary reference intakes for calcium and D. [place]: The National Academies Press.2. Miki MF, Jamie NC, Cata VEGA, et al. Evaluation, treatment, and prevention of vitamin D deficiency: an Endocrine Society clinical practice guideline. JCEM. 2010; 96(7):1911-30. 60-Atb-868839:21 C-REACTIVE PROTEIN (15734) Comments: PATIENT NOT FASTINGPERFORMED BY: CB [facility] Xarpsk[address] [place] [id number] C-Reactive Protein, Quant 6.7 mg/L (Abnormal) Range: 0.0-4.9 52-Yhb-101395:21 SED RATE ERYTHROCYTE (94891) Comments: PATIENT NOT FASTINGPERFORMED BY: [employer] Zmybnz9[address] [facility] [id number] Sedimentation Rate-Westergren 5 mm/h (Normal) Range: 0-40 43-Inr-980847:21 METABOLIC PANEL, COMPREHENSIVE Comments: PATIENT NOT FASTINGPERFORMED BY: [employer] Zsnggo9183 [facility] [id number] (81766) ALT (SGPT) 12 [iU]/L (Normal) Range: 0-32 [...] Glucose, Serum 69 mg/dL (Normal) Range: 65-99 46-Xul-482316:21 CBC, PLATELETS & AUT DIFF Comments: PATIENT NOT FASTINGPERFORMED BY: MaxCDN6[address] [facility] [id number] (31588) Immature Grans (Abs) 0.0 {x10E3/uL} (Normal) Range: [...] (Normal) Range: 3.4-10.8 :08 T4, FREE (THYROXINE) (30210) Comments: PATIENT NOT FASTINGPERFORMED BY: [facility]HackMarlton Rehabilitation HospitalHsuizk9071 [facility] [id number] T4,Free(Direct) 1.31 ng/dL (Normal) Range: 0.82-1.77 :08 T3, FREE (TRIDOTHYRONINE) (83181) Comments: PATIENT NOT FASTINGPERFORMED BY: AdHackUNM Cancer CenterRlkfgt23[address] [facility] [id number] Triiodothyronine,Free,Serum 2.2 pg/mL (Normal) Range: 2.0-4.4 :08 TSH (10052) Comments: PATIENT NOT FASTINGPERFORMED BY: [facility]CoM[facility] HospitalXyebrk8[address] [facility] [id number] TSH 3.520 {uIU/mL} (Normal) Range: 0.450-4.500 72-Cvk-215465:28 Metabolic Panel, Comprehensive Comments: PATIENT NOT FASTINGPERFORMED BY: LabFormerly [facility] [facility] [id number] (97853) ALT (SGPT) 15 [iU]/L (Normal) Range: 0-32 [...] Glucose, Serum 93 mg/dL (Normal) Range: 65-99 13-Ljj-838932:28 CBC, Platelets & Auto Diff Comments: PATIENT NOT FASTINGPERFORMED BY: [facility]CoM[facility] HospitalPjznwg5049 [facility] [id number] (51081) Immature Grans (Abs) 0.0 {x10E3/uL} (Normal) Range: [...] 3.77-5.28 WBC 6.8 {x10E3/uL} (Normal) Range: 3.4-10.8 36-Euy-859525:28 TSH (96868) Comments: PATIENT NOT FASTINGPERFORMED BY: [facility] Wrcgno8[address] [facility] [id number] TSH 0.034 {uIU/mL} (Abnormal) Range: 0.450-4.500 73-Mrb-452970:40 CBC W/Diff, Automated Comments: [facility] [address] [place], [place], [id number] Absolute Lymph 2.31 {X10_3/ul} (Normal) Range: 0.83-4.51 [...] 4.2-5.4 WBC 8.7 K/mm3 (Normal) Range: 4.4-11.0 25-Uto-762623:40 Comprehensive Metabolic Profil Comments: [facility] [address] [place], [place], [id number] GAP 7 (Normal) Range: 5-15 CO2 29.0 [...] 7-18 GLU 106 mg/dL (Normal) Range: 70-110 78-Pca-464500:07 URINE BECKY CULTURE-IDENTIFICATN Comments: PATIENT NOT FASTINGPERFORMED BY: [facility] Ferosd5[address] [facility] [id number] (04309) Result 1 CNSNSS (Abnormal) Comments: Coagulase negative [...] S Urine Final report Culture,Comprehens (Abnormal) svetlana 53-Ghg-202060:07 Metabolic Panel, Comprehensive Comments: PATIENT NOT FASTINGPERFORMED BY: [facility] GroupFormerly [facility] [facility] [id number] (17613) ALT (SGPT) 14 [iU]/L (Normal) Range: 0-32 [...] Glucose, Serum 76 mg/dL (Normal) Range: 65-99 98-Cva-700014:07 CBC, Platelets & Auto Comments: PATIENT NOT FASTINGPERFORMED BY: [facility] [facility] [id number] Information: [id number], [id number] Diff (67645) Immature Grans (Abs) 0.0 {x10E3/uL} (Normal) Range: [...] 3.77-5.28 WBC 8.1 {x10E3/uL} (Normal) Range: 3.4-10.8 11-Ept-486404:07 PT (Prothrobim Time) (34053) Comments: PATIENT NOT FASTINGPERFORMED BY: [facility]CoM[facility] HospitalVxbmqd6837 [facility] [id number] Prothrombin Time 10.4 {sec} (Normal) Range: 9.1-12.0 INR 1.0 (Normal) Range: 0.8-1.2 Comments: Reference interval is for non-anticoagulated patients. . Suggested INR therapeutic range for Vitamin K anta gonist therapy: Standard Dose (moderate intensity therapeutic range): 2.0 - 3.0 Higher intensity therapeutic range 2.5 - 3.5 79-Ezb-44160:53 Urinalysis, Office (59681) UA - LEUKOCYTE ESTERASE Small (Normal) UA - NITRITE Negative (Normal) URINE UROBILINGN IVAN TIMED Normal mg/dL (Normal) UA - PROTEIN Negative mg/dL (Normal) UA - PH 5.0 (Normal) Comments: 5.5 UA - BLOOD Non Hemolyzed Trace (Normal) UA - SPECIFIC GRAVITY 1.005 (Normal) UA - KETONES Negative mg/dL (Normal) UA - BILIRUBIN Negative (Normal) UA - GLUCOSE Negative (Normal) 01-Qlo-981393:17 Urinalysis, Office (58236) UA - LEUKOCYTE ESTERASE Large (Normal) UA - NITRITE Negative (Normal) URINE UROBILINGN IVAN TIMED Normal mg/dL (Normal) UA - PROTEIN 100 mg/dL (Normal) UA - PH 6 (Abnormal) UA - BLOOD Hemolyzed Large (Normal) UA - SPECIFIC GRAVITY 1.025 (Normal) UA - KETONES Negative mg/dL (Normal) UA - BILIRUBIN Negative (Normal) UA - GLUCOSE Negative (Normal) 31-May-2015 EGD ([facility]) See Note (Normal) Comments: [facility] [address] [place], [address] 12:32 Comments: Patient: MAURICIO SERRANO : 1945 (69/F) Acct Num: [id number] Phys: Eugenio Laguna Unit Num: [id number] Loc: LABSPEC Specimen: [id number] Received: 05/31/15 - 1610 Spec Type: EGD BIOPSY TISSUES TISSUES: COMMENT The results of immunohistochemistry for Helicobacter pylori will be reported separately ([id number]). Alcian blue/PAS stain with matched control was [...] one cassette. / AM: 06/01/15 TC:3 CPT: 89211, 00209 HEADER OPERATION: EGD w ith biopsy PRE-OP [...] of intestinal metaplasia. AM: 06/02/15 Signed [facility] 06/02/15 <signature on file> 31-May-2015 IMMUNOHISTOCHEMISTRY See Note (Normal) Comments: [address] [place], [address] 0:00 Comments: Patient: MAURICIO SERRANO : 1945 (69/F) Acct Num: [id number] Phys: Eugenio Laguna Unit Num: [id number] Loc: LABSPEC Specimen: [id number] Received: 06/02/151156 Spec Type : IMMUNO TISSUES TISSUES: SPECIMEN INFORMATION: Tissue Source: Gastric antrum, biopsy Clinical Info: Peptic ulcer disease Specimen Number: [id number] CPT code: 37079 METHODOL OGY: Deparaffinized sections of prefer/formalin-fixed tissue or PAP/DQ stained slides are incubated with monoclonal/polyclonal antibodies/oligonucleotide probes. Localization is made via biotin free immunoperoxidase method. Appropriate controls are performed and reacted as expected. Results on target cell population are indicated in the following table: RESULTS: ANTIBODY / CLONE RESULT H Pylori (polyclonal) negative These tests were developed and their performance characteristics determined by [facility]. They may not have been cleared or approved by the U.S. Food and Drug Administration. The FDA has determined that such clearance or approval is not necessary. INTERPRETATION: Gastric antrum, biopsy: Negative for H elicobacter pylori. AM: 06/02/15 PHYSICIAN AND INSTITUTION [address] [address] Signed [facility] 06/02/15 <signature on file> 01-Mar-2015 Gastric Biopsy See Note (Normal) Comments: Test performed at:[facility] [address] [place] [address] 10:56 Comments: Patient: MAURICIO SERRANO : 1945 (69/F) Acct Num: [id number] Phys: Eugenio Laguna Unit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 ([id number])By: On: 05-Dec-2009 Intent Serena Quiñonez CNP, CNP, Mary E Pulse Oximetry ([id number])By: Olamide On: 05-Dec-2009 Intent Serena MARTINEZ CNP, Mary E CT - Brain/HeadBy: Brandishanamichelle MICHELLE, On: 25-Aug-2009 Intent Serena Leblanc CNP DESTRUCT B9 LESION, 1-14 On: 20-Mar-2009 Intent ([id number])By: Micki Cruz MD Doppler Ultrasound OtherBy: Olamide On: 18-Oct-2008 Intent Serena MARTINEZ CNP, Mary E CT - ChestBy: Micki Cruz MD On: 22-Mar-2008 Intent Comments: copyy of both ct to Dr. yeyo jules in [place] and Dr. meehan CT - Abdomen & PelvisBy: Nancy On: 22-Mar-2008 Intent Micki GIPSON Pulse Oximetry ([id number])By: On: 22-Mar-2008 Intent RAMA Webster Pulse Oximetry ([id number])By: On: 16-Mar-2008 Intent RAMA Webster Echo CompleteBy: Micki Cruz MD On: 11-Mar-2008 Intent M Vancoymcin 500mg/premixedBy: On: 11-Mar-2008 Intent Micki Cruz MD Pulse Oximetry ([id number])By: On: 02-Mar-2008 Intent RAMA Webster Pulse Oximetry ([id number])By: Olamide On: 26-Feb-2008 Intent Serena MARTINEZ CNP, Mary E CT - Chest (IV Contrast On: 26-Feb-2008 Intent Needed)By: Serena Quiñonez CNP Comments: PE protocolstatSTAT CT shows PE to be admitted Serena Quiñonez CNP Solu -Medrol Injection, 125 mg On: 26-Feb-2008 Intent ([id number])By: Serena Quiñonez CNP Comments: waiver signedAmt: 2mlLot: [id number]: 09/2010Route: IMSite: right hipTolerated: wellGiven By: RADAMES Ta CNP, Mary E Inhaler Demonstration ([id number])By: On: 26-Feb-2008 Intent Serena Quiñonez CNP, CNP, Mary E Aerosol Treatment ([id number])By: On: 26-Feb-2008 Intent Serena Quiñonez CNP, CNP, Mary Comments: done E Venous Doppler - RightBy: Nancy On: 27-Nov-2007 Intent Micki GIPSON Comments: leg 2 weeks DXA, BONE DENSITY, AXIAL SKELETON On: 06-Nov-2007 Intent ([id number])By: Micki Cruz MD Comments: estrogen deficient MAMMOGRAM, SCREENING, BOTH On: 06-Nov-2007 Intent BREASTS ([id number])By: Micki Cruz MD Pulse Oximetry ([id number])By: On: 06-Nov-2007 Intent RAMA Webster Pulse Oximetry ([id number])By: Alex, On: 24-Sep-2007 Intent Dana Comments: 98% Aerosol Treatment ([id number])By: On: 05-Aug-2007 Intent Serena Quiñonez CNP, CNP, Mary E Spirometry ([id number])By: Nancy On: 27-May-[address] - Brain/HeadBy: Nancy GIPSON, On: 22-Mar-2006 Tere Wright Planned Medications INJECTION, KETOROLAC TROMETHAMINE, PER 15 MG Ordered: 30-Apr-2012 Pending Serena Quiñonez CNP, CNP, Mary E INJECTION, METHYLPREDNISOLONE SODIUM SUCCINATE, UP TO 125 MG Ordered: 17-Aug-2016 Pending Olamide MARTINEZ BrenYonathan Quiñonez CNP Serena Mcmanus INJECTION, METHYLPREDNISOLONE SODIUM SUCCINATE, UP TO 125 MG Ordered: 17-Aug-2016 Pending Serena Quiñonez CNP, CNP Serena Mcmanus Instructions Name Dates Details Nonsmoker : How [...] TSH : DISCONTINUED - T4, FREE (THYROXINE) ([id number]) Indication: Abnormal TSH Abnormal TSH : DISCONTINUED - T3, FREE (TRIDOTHYRONINE) ([id number]) Indication: Abnormal TSH Abnormal TSH : DISCONTINUED - TSH (THYROID STIMULATING HORMONE) ([id number]) Indication: Abnormal TSH Encounter for screening for [...] NOS : DISCONTINUED - HEPATIC FUNCTION PANEL ([id number]) Indication: FUNGUS, NOS Hypertension : DISCONTINUED - TSH ([id number]) Indication: Hypertension GERD (gastroesophageal reflux disease) : [...] Instructions Indication: Epigastric Pain Encounters Annotation/Addendum On: 26-May-2018 10:22 Encounter Diagnosis: Encounter for screening mammogram for breast cancer (Renamed from Screening mammogram, encounter for) End: 26-May-2018 10:24 [facility] Annotation/Addendum On: 07-May-2018 8:30 Encounter Diagnosis: Rash [...] recently getting worse-full End: 30-Dec-2017 11:33 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 He is not doing well and [...] The patient does have durable power of security monitor and living will. The patient has noticed [...] For Left Knee replacement Dr. Hernandez in [place] Aug 09, 2015. When pt had Rt [...] (490.) [facility] Office Visit On: 1-Apr-2013 8:52 Encounter Reason: Cough - Symptoms include [...] mcmanus has been getting her vicoden from [place] - so encoruaged her to discuss with [...] (obesity ). 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/Vonnie martinez guarantor
--- OUTSIDE RECORDS SUMMARY | 2018-07-24 21:24 | XMS RPT_ITS | Continuity of Care Document ---
:1945 External Reference #:[id number] Author Organization [facility] Address [address] [place] [address] Phone Care Team Providers Name Role Phone Serena Quiñonez CNP Unavailable Anette Connolly Unavailable Dr. Acosta Talbot Unavailable Michael Duncan Unavailable Logan El DO Unavailable Slarb PHOTOGRAPHIC AIDE, Cheryle Unavailable Unavailable Long PHOTOGRAPHIC AIDE, Kalie L Unavailable Unavailable long, yuko Unavailable [...] 715.90) Comments: stable on gabapentin seen at [facility] arthritis neck arthritis and knee pain , has seen Dr. Coughlin for neck pain for injectionwas seen at [facility] arthritis given gabapentinwas taking melox [...] Serena Mcmanus Start : 08-Apr-2018 Active Comments:OARRS ktxetnhqL33.9f43.21Thirty Losartan Potassium 50 MG Oral Tablet 1 [...] Quantity: 2 {Tablet} Refills: 1 Ordered:10-Jan-2018 Long PHOTOGRAPHIC AIDEKalie Start : 10-Jan-2018 Active ALEVE, 220MG (Oral [...] 27-Jun-2015 End : 04-Jul-2015 Inactive CITRACAL/VITAMIN D, 541-658LW-QDIN (Oral Tablet) 2 QD for 0 days Refills: 0 Ordered:03-Oct-2011 Abby Jones LPN End : 03-Oct-2011 Inactive CLARINEX REDITABS, 5MG (Oral Tablet Dispersible) 1 (one) Tablet Disperse daily for 0 days Quantity: 5 {Tablet_Disperse} Refills: 0 Ordered:06-Jul-2010 RAMA Webster Start : 05-Dec-2009 End : 06-Jul-2010 Inactive CORTISPORIN, 3.5-58822-1 (Otic Solution) 4 Solution Solution tid for [...] {Capsule} Refills: 0 Ordered:01-Oct-2017 Olamide MARTINEZ Serena SHERIEdmitriymichlele MARTINEZ Serena Mcmanus Start : 01-Oct-2017 End [...] Quantity: 30 {Tablet} Refills: 0 Ordered:18-Nov-2015 Olamide HOUSE CARPENTER, Serena Patton HOUSE CARPENTER, Serena Mcmanus Start : 14-Oct-2015 End : 13-Nov-2015 Inactive LEVAQUIN, 500MG (Oral Tablet) 1 Tablet daily for 10 days Quantity: 10 {Tablet} Refills: 0 Ordered:01-Oct-2012 Olamide HOUSE CARPENTER, Serena Patton CNP, Serena Mcmanus Start : [...] : 08-Aug-2010 End : 28-Sep-2011 Inactive NYSTOP, 412390OQOR/GM (External Powder) Powder take as directed for [...] : 20-Jun-2012 Discontinued Comments:This order discontinued per [facility]. OXYCODONE HCL, 5MG (Oral Tablet) 1 (one) [...] Quantity: 30 {Capsule} Refills: 6 Ordered:15-Dec-2014 Slarb PHOTOGRAPHIC AIDE, Cheryle Start : 20-Feb-2013 End : 15-Dec-2014 Discontinued TESSALON PERLES, 100MG (Oral Capsule) 1 (one) Capsule tid for 0 days Quantity: 30 {Capsule} Refills: 0 Ordered:11-Aug-2007 Dana Johnson Start : 11-Aug-2007 End : 06-Nov-2007 Discontinued TOPICORT, 0.25% (External Cream) 1 (one) Cream bid for 0 days Quantity: 1 {Tube} Refills: 0 Ordered:02-Nov-2014 Slarb PHOTOGRAPHIC AIDE, Cheryle Start : 30-Jun-2014 End : 02-Nov-2014 Discontinued TYLENOL WITH CODEINE #3, 300-30MG (Oral Tablet) 1 (one) Tablet q6-8 hrs prn for 0 days Quantity: 30 {Tablet} Refills: 0 Ordered:27-Jun-2015 Slarb PHOTOGRAPHIC AIDE, Cheryle Start : 11-Mar-2015 End : 27-Jun-2015 Discontinued TYLENOL, 325MG (Oral Tablet) 1 PRN for 0 days Refills: 0 Ordered:27-Jun-2015 Slarb PHOTOGRAPHIC AIDE, Cheryle Start : 02-Mar-2015 End : 27-Jun-2015 [...] (M79.609, 729.5) Status: Inactive as of 24-May-2014 superintendent terminal (current) use of anticoagulants (Z79.01, V58.61) Status: [...] Study (HP) Result: Comments: See Note; NOTES: [facility] Imaging Services [address] [place] [address] Verdana 4d Dexa Bone Density Study (HP) MR#: [id number] Acct: [id number] Name: EVENS SERRANO Germaine Rep #: [id number] : 1945 F 71 From: Michael Noland MD PCP: Serena Quiñonez Status: REG CLI Study: Dexa Bone Density Study (HP) Date of Exam: 11/13/16 Exam# [id number] Ordering Dr: Kyle Quiñonez STUDY: DUAL ENERGY [...] Michael Noland MD at 7:57 EDT Tel [phone], Service support , CC: Serena Quiñonez Orange Peel Operator: Signed 13-Nov-2016 SCREENING MAMM (CAD), BILAT Result: Comments: See Note; NOTES: [facility] Imaging Services [address] [place] [address] Verdana 4d SCREENING MAMM (CAD), BILAT MR#: [id number] Acct: [id number] Name: TRINI SERRANO Rep #: [id number] : 1945 F 71 From: Michael Noland MD PCP: Serena Quiñonez Status: REG CLI Study: SCREENING MAMM (CAD), BILAT Date of Exam: 11/13/16 Exam# [id number] Ordering Dr: Yudith Quiñonez MAMMOGRAPHY - BILATERAL [...] y biopsy of a clinically suspicious abnormality. [id number] Electronically Signed: Michael Noland MD at 8:11 EDT Tel [phone], Service support , CC: Serena Quiñonez Orange Peel Operator: Signed 17-Aug-2016 Chest PA and Lateral Result: Comments: See Note; NOTES: [facility] Imaging Services [address] [place] [address] Verdana 4d Chest PA and Lateral MR#: [id number] Acct: [id number] Name: MAURICIO SERRANO p #: [id number] : 1945 F 71 From: Michael Noland MD PCP: Micki Cruz MD Status: REG CLI Study: Chest PA and Lateral Date of Exam: 08/17/16 Exam# [id number] Ordering Dr: Serena Quiñonez STUDY: X-RAY CHEST [...] Michael Noland MD at 14:44 EST Tel [phone], Service support [phone], CC: Serena Quiñonez; Micki Cruz MD Orange Peel Operator: Signed 03-Oct-2015 PT D/C Summary (1) Result: Comments: See Note; NOTES: [facility] [address] [place] [address] Fax REHABILITATION SE RVICES DISCHARGE SUMMARY MR#: [id number] Acct: [id number] Name: MAURICIO SERRANO Rep #: [id number] : 1945 70 From: Bolivar Newell DPT, OCS, CSCS Referring Dr.: OUT [facility] DOCTOR Status: REG RCR Eval Date: Discharge Date: HP - PT D/C Summary It has been my pleasure to treat MAURICIO SERRANO under orders from [facility] Doctor, SARATH HERNANDEZ for the diagnosis [...] please feel free to call me at [phone]. Thank you for the referral of this patient. Sincerely, Bolivar Newell <Electronically signed by Bolivar Newell DPT, OCS, CSCS> 10/14 0646 CC: SARATH HERNANDEZ; Micki Cruz MD; OUT OF TOWN DOCTOR EBG Signed 09-Sep-2015 Re-Evaluation - PT (1) Result: Comments: See Note; NOTES: [facility] [address] [place], [place] [address] Fax REEVALUATION / ME DICARE RECERTIFICATION [place]ancos 4d PHYSICAL THERAPY MR#: [id number] Acct: [id number] Name: MAURICIO SERRANO Rep #: [id number] : 1945 70 From: Bolivar Newell DPT, OCS, CSCS Referring DrPaxton: SHAHNAZ CHUN [facility] DOCTOR Status: REG R Insurance: [employer] Out of [facility] Doctor, SARATH HERNANDEZ It has been [...] do not hesitate to contact me at [phone] by phone or if you have questions [...] Discharge Instruction Result: Comments: See Note; NOTES: [facility] Medical Records Department [address] [place] [address] Discharge Instruction 08/14/152021 MR#: [id number] Acct: [id number] Name: MAURICIO SERRANO Rep #: [id number] : 1945 70 From: Logan Keen MD PCP: Micki Cruz MD Status: DEP ER ED Disposition - Plan for ED Patient: Chief Complaint: Lower Extremity Injury Instructions: ED Dyspnea What to do if you have Problems For any increased pain, shortness of breath, bleeding, nausea or vomiting, chest pain, or any unexpected problems, contact your do ctor. Call Doctors [facility] ([phone]) or report to the closest Emergency Room. Call 911 if necessary. 08/18/15 0746 <Electronically signed by Logan Keen MD> Date ____ Logan Keen MD Cosigner Signature (If Indicated): Date CC: Micki Cruz MD 18-Aug-2015 Emergency Department Summary Result: Comments: See Note; NOTES: [facility] Medical Records Department [address] [place] [address] Emergency Department Summary MR#: [id number] Acct: [id number] Name: MAURICIO SERRANO Rep #: [id number] : 1945 70 From: Logan Keen MD [...] Discharge. Logan Keen MD T: NTS JOB: [id number] 08/18/15 0746 <Electronically signed by Logan stovall MD> Date Logan Keen MD Cosigner Signature (If Indicated): Date CC: Micki christine MD Date Dictated: 02/14/16 2022 Date Transcribed: 08/14/152021 Orange Peel Operator: Signed 14-Aug-2015 CTA Chest W/WO Contrast Result: Comments: See Note; NOTES: [facility] Imaging Services [address] [place] [address] Verdana 4d CTA Chest W/WO Contrast MR#: [id number] Acct: [id number] Name: MAURICIO DORAN Rep #: [id number] : 1945 F 70 From: Sandy Lundberg MD PCP: Micki Cruz MD Status: REG ER Study: CTA Chest W/WO Contrast Date of Exam: 08/14/15 Exam# [id number] Ordering Dr: Logan Velasquez MD STUDY: CTA [...] MD at 20:03 EST , Service support [phone], CC: Germaine Cruz MD; Logan Keen MD Orange Peel Operator: Signed 12-Aug-2015 Inital Evaluation (1) - PT Result: Comments: See Note; NOTES: [facility] [address] [place], [place] [address] Fax REHABILITATION SE RVICES INITIAL EVALUATION MR#: [id number] Acct: [id number] Name: MAURICIO SERRANO Rep #: [id number] : 1945 70 From: Bolivar Newell DPT, OCS, CSCS Referring Dr.: OUT OF TOWN DOCTOR Status: REG RCR Insurance: [employer] EvAngelfish Date: Patient's Visit Information MAURICIO SERRANO is [...] for shoes but takes time. Has a hose tubing backer to get socks and pick things up [...] to be FAXED BACK to us at [phone] for Medicare purposes. Please let me know if there are questions or concerns regarding this plan of care. Conrad matos Signature: Date: <Electronically signed by Bolivar Newell DPT, OCS, CSCS> 08/12/15 0642 CC: SARATH HERNANDEZ; Micki shea MD; OUT OF TOWN DOCTOR EBG Signed For Medicare only, by signing this I certify the plan of care. Physicians Signature Date 12-Jul-2015 ELECTROCARDIOGRAM, COMPLETE (ECG) (58738) Comments: sinus rhythm within normal limits Result: [MEASUREMENTS ANALYSIS] Date of Test: 07/12/2015 13:50:06; Heart Rate: 72; ME Interval: 146; QRS: 90; QT Interval: 392; Corrected QT Interval (QTc): 413; P Wave [place]: 47; QRS Wave [place]: 20; T Wave [place]: 51; Blood Pressure: 122/80 [ECG DIAGNOSTIC STATEMENTS] Date of Test: 07/12/2015 13:50:06; Summary: Sinus Rhythm WITHIN NORMAL LIMITS 30-Jun-2015 Abdomen/Pelvis without Cont Result: Comments: See Note; NOTES: [facility] Imaging Services [address] [place] [address] Verdana 4d Abdomen/Pelvis without Cont MR#: [id number] Acct: [id number] Name: MAURICIO SERRANO Rep #: [id number] : 1945 F 69 From: Bella Meade MD PCP: Micki Cruz MD Status: REG CLI Study: Abdomen/Pelvis without Cont Date of Exam: 06/30/15 Exam# [id number] Alexia england Dr: Serena Quiñonez STUDY: CT [...] at 10:49 EST Tel , Service support [phone], CC: Serena Quiñonez; Micki Cruz MD Orange Peel Operator: Signed 17-Feb-2015 Abdomen/Pelvis WITH Contrast Result: Comments: See Note; NOTES: [facility] Imaging Services [address] [place] [address] CAT Scan Report MR#: [id number] Acct: [id number] Name: MAURICIO SERRANO Rep #: [id number] : 1945 F 69 From: Gerald Persaud DO PCP: Micki Cruz MD Status: REG CLI Study: Abdomen/Pelvis WITH Contrast Date of Exam: 02/17/15 Exam# [id number] Ordering Dr: Micki Cruz MD [facility] DY: CT ABDOMEN AND PELVIS [...] at 19:10 EDT Tel , Service support [phone], CC: Micki Cruz MD Orange Peel Operator: Signed 02-Nov-2014 Chest WITH Contrast Result: Comments: See Note; NOTES: [facility] Imaging Services [address] [place] [address] CAT Scan Report MR#: [id number] Acct: [id number] Name: MAURICIO SERRANO Rep #: [id number] : 1945 F 69 From: Michael Noland MD PCP: Micki Cruz MD Status: REG CLI Study: Chest WITH Contrast Date of Exam: 11/02/14 Exam# [id number] Ordering Dr: Serena Quiñonez STUDY: CTA CHEST [...] Michael Noland MD at 15:54 EDT Tel [phone], Service support [phone], CC: Serena Quiñonez; Micki Cruz MD Orange Peel Operator: Signed 15-Mar-2014 Toe(s) Min 2 Views Result: Comments: See Note; NOTES: [facility] Imaging Services [address] [place] [address] Radiology Report MR#: [id number] Acct: [id number] Name: MAURICIO SERRANO Rep #: [id number] : 1945 F 68 From: Romaine Tafoya DO PCP: Micki Cruz MD Status: REG CLI Study: Toe(s) Min 2 Views Date of Exam: 03/15/14 Exam# [id number] Ordering Dr: Serena Quiñonez STUDY: X-RAY LEFT [...] Tafoya DO 2 at 16:54 EDT Tel [phone], Service support [phone], RAD/Toe(s) Min 2 Views IMPRESSION: No acute abnormality of the left second toe. Electron ically Signed: Romaine Tafoya DO at 16:54 EDT Tel [phone], Service support [phone], CC: Serena Quiñonez; Micki Cruz MD Orange Peel Operator: Signed 15-Feb-2014 Spine Cervical without Contras Result: Comments: See Note; NOTES: [facility] Imaging Services [address] [place] [address] CAT Scan Report MR#: [id number] Acct: [id number] Name: MAURICIO SERRANO Rep #: [id number] : 1945 F 68 From: Michael Noland MD PCP: Micki Cruz MD Status: REG CLI Study: Spine Cervical without Contras Date of Exam: 02/15/14 Exam# [id number] Ordering Dr: Micki Cruz MD STUDY: CT [...] Noland MD at 14:08 E DT Tel [phone], Service support [phone], CC: Micki Cruz MD Orange Peel Operator: Signed 11-Feb-2014 Cerv Spine 4 or 5 Views Result: Comments: See Note; NOTES: [facility] Imaging Services [address] [place] [address] Radiology Report MR#: [id number] Acct: [id number] Name: MAURICIO SERRANO Rep #: [id number] : 1945 F 68 From: Julio Charles DO PCP: Micki Cruz MD Status: REG CLI Study: Cerv Spine 4 or 5 Views Date of Exam: 02/11/14 Exam# [id number] Ordering Dr: Serena Quiñonez STUDY: X-RAY - [...] Charles DO at 19 :48 EDT Tel [phone], Service support [phone], CC: Serena Cruz MD Orange Peel Operator: Signed 09-Oct-2013 Knee 4 or More Views Result: Comments: See Note; NOTES: [facility] Imaging Services [address] [place] [address] Radiology Report MR#: [id number] Acct: [id number] Name: MAURICIO SERRANO Rep #: [id number] : 1945 F 68 From: Romaine Tafoya DO PCP: Micki Cruz MD Status: REG CLI Study: Knee 4 or More Views Date of Exam: 10/09/13 Exam# [id number] Ordering Dr: Serena Quiñonez STUDY: X-RAY - [...] Romaine Tafoya DO at 19:01 EDT Tel [phone], Service support [phone], CC: Serena Cruz MD Orange Peel Operator: Signed 03-Sep-2013 Hepatobilliary Imaging Result: Comments: See Note; NOTES: [facility] Imaging Services [address] [place] [address] Nuclear Medicine Report MR#: [id number] Acct: [id number] Name: MAURICIO SERRANO Rep #: [id number] : 1945 F 68 From: Gene Diallo DO PCP: Micki Cruz MD Status: REG CLI Study: Hepatobilliary Imaging Date of Exam: 09/03/13 Exam# [id number] Ordering Dr: Catalina Daly DO CLINICAL: 68-year-old [...] M.D. at 7:07 EST , Service support [phone], Fa x [phone] CLINICAL: 68-year-old female with reported history of [...] CC: Micki Cruz MD; Catalina Daly DO Orange Peel Operator: Signed 27-Aug-2013 Gallbladder Result: Comments: See Note; NOTES: [facility] Imaging Services [address] [place] [address] Ultrasound Report MR#: [id number] Acct: [id number] Name: MAURICIO SERRANO Rep #: [id number] : 1945 F 68 From: Michael Noland MD PCP: Micki Cruz MD Status: REG CLI Study: Gallbladder Date of Exam: 08/27/13 Exam# [id number] Ordering Dr: Catalina Daly DO STUDY: AB [...] M.D. at 10:31 EST , Service support [phone], CC: Micki Cruz MD; Catalina Daly DO Orange Peel Operator: Signed Family History Unknown Family Member [...] kg/m2 Body Surface Area Calculated 1.98 m2 00-Kcf-353006:53 Temperature 97.8 f Pulse 75 /min Comments: [...] kg/m2 Body Surface Area Calculated 2.05 m2 76-Mjx-142939:12 Temperature 97.8 f Comments: Method: Temporal Pulse [...] kg/m2 Body Surface Area Calculated 2.11 m2 95-Bln-012628:58 Temperature 97.9 f Comments: Method: Oral Pulse [...] kg/m2 Body Surface Area Calculated 1.9 m2 18-Bxi-097549:15 Temperature 98.3 f Comments: Method: Oral Pulse [...] 0.00 cm Results Date Description Value Details 81-Bjy-753338:28 Metabolic Panel, Comprehensive Comments: Jan 2017; PATIENT NOT FASTINGPERFORMED BY: [facility] System[facility]qabp1386 [facility] [id number] (08950) ALT (SGPT) 14 [iU]/L (Normal) Range: 0-32 [...] Glucose, Serum 77 mg/dL (Normal) Range: 65-99 39-Aar-809035:28 CALCIFEDIOL (97313) Comments: Jan 2017; PATIENT NOT FASTINGPERFORMED BY: Geodruid6370 [facility] [id number] Vitamin D, 25-Hydroxy 33.0 ng/mL (Normal) Range: 30.0-100.0 Comments: Vitamin D deficiency has been defined by the [place] [facility] and an Endocrine Society practice guideline as alevel of serum 25-OH vitamin D less than 20 ng/mL (1,2).The Endocrine Society went on to further define vitamin Dinsufficiency as a level between 21 and 29 ng/mL (2).1. IOM ([place] of Medicine). 2010. Dietary reference intakes for calcium and D. [place]: The National Academies Press.2. Miki MF, Jamie NC, Cata VEGA, et al. Evaluation, treatment, and prevention of vitamin D deficiency: an Endocrine Society clinical practice guideline. JCEM. 2010; 96(7):1911-30. 96-Ysv-468663:21 C-REACTIVE PROTEIN (83320) Comments: PATIENT NOT FASTINGPERFORMED BY: CB [facility] Hgpxld6887 [place] [place] [id number] C-Reactive Protein, Quant 6.7 mg/L (Abnormal) Range: 0.0-4.9 69-Kkh-171922:21 SED RATE ERYTHROCYTE (57570) Comments: PATIENT NOT FASTINGPERFORMED BY: [facility] Vzvuba6400 [facility] [id number] Sedimentation Rate-Westergren 5 mm/h (Normal) Range: 0-40 56-Bsb-174997:21 METABOLIC PANEL, COMPREHENSIVE Comments: PATIENT NOT FASTINGPERFORMED BY: [facility] Innktq7732 [address] [facility] [id number] (22605) ALT (SGPT) 12 [iU]/L (Normal) Range: 0-32 [...] Glucose, Serum 69 mg/dL (Normal) Range: 65-99 71-Qox-447101:21 CBC, PLATELETS & AUT DIFF Comments: PATIENT NOT FASTINGPERFORMED BY: iiko6370 [facility] [id number] (71874) Immature Grans (Abs) 0.0 {x10E3/uL} (Normal) Range: [...] (Normal) Range: 3.4-10.8 :08 T4, FREE (THYROXINE) (57570) Comments: PATIENT NOT FASTINGPERFORMED BY: [facility] SystemNlvgxw4632 [facility] [id number] T4,Free(Direct) 1.31 ng/dL (Normal) Range: 0.82-1.77 :08 T3, FREE (TRIDOTHYRONINE) (28937) Comments: PATIENT NOT FASTINGPERFORMED BY: [facility] FacilityOfsngn1851 [facility] [id number] Triiodothyronine,Free,Serum 2.2 pg/mL (Normal) Range: 2.0-4.4 :08 TSH (17020) Comments: PATIENT NOT FASTINGPERFORMED BY: [facility] SystemTpvosb1070 [facility] [id number] TSH 3.520 {uIU/mL} (Normal) Range: 0.450-4.500 42-Eck-830211:28 Metabolic Panel, Comprehensive Comments: PATIENT NOT FASTINGPERFORMED BY: [facility]6370 [facility] [id number] (85127) ALT (SGPT) 15 [iU]/L (Normal) Range: 0-32 [...] Glucose, Serum 93 mg/dL (Normal) Range: 65-99 73-Aph-258823:28 CBC, Platelets & Auto Diff Comments: PATIENT NOT FASTINGPERFORMED BY: [facility] SystemQrfqtc1401 [facility] [id number] (53792) Immature Grans (Abs) 0.0 {x10E3/uL} (Normal) Range: [...] 3.77-5.28 WBC 6.8 {x10E3/uL} (Normal) Range: 3.4-10.8 54-Qqv-507268:28 TSH (34490) Comments: PATIENT NOT FASTINGPERFORMED BY: [facility] Lopxau9577 [facility] [id number] TSH 0.034 {uIU/mL} (Abnormal) Range: 0.450-4.500 84-Iaa-785676:40 CBC W/Diff, Automated Comments: [facility] [address] [place], [place], [address] Absolute Lymph 2.31 {X10_3/ul} (Normal) Range: 0.83-4.51 [...] 4.2-5.4 WBC 8.7 K/mm3 (Normal) Range: 4.4-11.0 24-Cvn-828278:40 Comprehensive Metabolic Profil Comments: [facility] [address] [place], [place], [address] GAP 7 (Normal) Range: 5-15 CO2 29.0 [...] 7-18 GLU 106 mg/dL (Normal) Range: 70-110 34-Rlq-466335:07 URINE BECKY CULTURE-IDENTIFICATN Comments: PATIENT NOT FASTINGPERFORMED BY: [facility] Xwpuir8677 [facility] [id number] (33899) Result 1 CNSNSS (Abnormal) Comments: Coagulase negative [...] S Urine Final report Culture,Comprehens (Abnormal) svetlana 74-Ige-483666:07 Metabolic Panel, Comprehensive Comments: PATIENT NOT FASTINGPERFORMED BY: [facility]6370 [facility] [id number] (63691) ALT (SGPT) 14 [iU]/L (Normal) Range: 0-32 [...] Glucose, Serum 76 mg/dL (Normal) Range: 65-99 99-Daf-111454:07 CBC, Platelets & Auto Comments: PATIENT NOT FASTINGPERFORMED BY: [facility]6370 [facility] [id number] Information: P20352, 508395 Diff (61191) Immature Grans (Abs) 0.0 {x10E3/uL} (Normal) Range: [...] 3.77-5.28 WBC 8.1 {x10E3/uL} (Normal) Range: 3.4-10.8 70-Bls-162107:07 PT (Prothrobim Time) (14755) Comments: PATIENT NOT FASTINGPERFORMED BY: [facility] SystemZmchha6086 [facility] [id number] Prothrombin Time 10.4 {sec} (Normal) Range: 9.1-12.0 INR 1.0 (Normal) Range: 0.8-1.2 Comments: Reference interval is for non-anticoagulated patients. . Suggested INR therapeutic range for Vitamin K anta gonist therapy: Standard Dose (moderate intensity therapeutic range): 2.0 - 3.0 Higher intensity therapeutic range 2.5 - 3.5 47-Zsf-74390:53 Urinalysis, Office (44269) UA - LEUKOCYTE ESTERASE Small (Normal) UA - NITRITE Negative (Normal) URINE UROBILINGN IVAN TIMED Normal mg/dL (Normal) UA - PROTEIN Negative mg/dL (Normal) UA - PH 5.0 (Normal) Comments: 5.5 UA - BLOOD Non Hemolyzed Trace (Normal) UA - SPECIFIC GRAVITY 1.005 (Normal) UA - KETONES Negative mg/dL (Normal) UA - BILIRUBIN Negative (Normal) UA - GLUCOSE Negative (Normal) 03-Vhz-151041:17 Urinalysis, Office (00425) UA - LEUKOCYTE ESTERASE Large (Normal) UA - NITRITE Negative (Normal) URINE UROBILINGN IVAN TIMED Normal mg/dL (Normal) UA - PROTEIN 100 mg/dL (Normal) UA - PH 6 (Abnormal) UA - BLOOD Hemolyzed Large (Normal) UA - SPECIFIC GRAVITY 1.025 (Normal) UA - KETONES Negative mg/dL (Normal) UA - BILIRUBIN Negative (Normal) UA - GLUCOSE Negative (Normal) 31-May-2015 EGD ([facility]) See Note (Normal) Comments: [facility] [address] [place], [address] 12:32 Comments: Patient: MAURICIO SERRANO : 1945 (69/F) Acct Num: [id number] Phys: Eugenio Laguna Unit Num: [id number] Loc: LABSPEC Specimen: [id number] Received: 05/31/15 - 1610 Spec Type: EGD BIOPSY TISSUES TISSUES: COMMENT The results of immunohistochemistry for Helicobacter pylori will be reported separately ([id number]). Alcian blue/PAS stain with matched control was [...] one cassette. / AM: 06/01/15 TC:3 CPT: 17466, 03282 HEADER OPERATION: EGD w ith biopsy PRE-OP [...] of intestinal metaplasia. AM: 06/02/15 Signed [facility] 06/02/15 <signature on file> 31-May-2015 IMMUNOHISTOCHEMISTRY See Note (Normal) Comments: [address] [place], [address] 0:00 Comments: Patient: MAURICIO SERRANO : 1945 (69/F) Acct Num: [id number] Phys: Eugenio Laguna Unit Num: [id number] Loc: LABSPEC Specimen: [id number] Received: 06/02/151156 Spec Type : IMMUNO TISSUES TISSUES: SPECIMEN INFORMATION: Tissue Source: Gastric antrum, biopsy Clinical Info: Peptic ulcer disease Specimen Number: [id number] CPT code: 57667 METHODOL OGY: Deparaffinized sections of prefer/formalin-fixed tissue or PAP/DQ stained slides are incubated with monoclonal/polyclonal antibodies/oligonucleotide probes. Localization is made via biotin free immunoperoxidase method. Appropriate controls are performed and reacted as expected. Results on target cell population are indicated in the following table: RESULTS: ANTIBODY / CLONE RESULT H Pylori (polyclonal) negative These tests were developed and their performance characteristics determined by [facility]. They may not have been cleared or approved by the U.S. Food and Drug Administration. The FDA has determined that such clearance or approval is not necessary. INTERPRETATION: Gastric antrum, biopsy: Negative for H elicobacter pylori. AM: 06/02/15 PHYSICIAN AND INSTITUTION [address] [address] Signed Olvin [facility] 06/02/15 <signature on file> 01-Mar-2015 Gastric Biopsy See Note (Normal) Comments: Test performed at:[facility] [address] [place] [address] 10:56 Comments: Patient: MAURICIO SERRANO : 1945 (69/F) Acct Num: [id number] Phys: Eugenio Laguna Unit Num: [id number] Loc: LABSPEC Specimen: [id number] Received: 03/01/151700 Spec Type: Gastric Bx TISSUES TISSUES: COMMENT A AND B - The results of immunohistochemistry for Helicobacter pylori will be reported separately ([id number]). GROSS DESCRIPTION A - Recei michelle is [...] one cassette. / DOREEN:charles 03/02/15 TC:2 CPT: 68144 x2 HEADER OPERATION: EGD with biopsy PRE-OP [...] IMMUNOHISTOCHEMISTRY See Note (Normal) Comments: Test performed at:[facility] [address] [place] [address] [id number] 0:00 Comments: Patient: MAURICIO SERRANO : 1945 (69/F) Acct Num: [id number] Phys: Eugenio Laguna Unit Num: [id number] Loc: LABSPEC Specimen: [id number] Received: 03/03/15 - 1218 Spec Type : IMMUNO TISSUES TISSUES: SPECIMEN INFORMATION: Tissue Source: A. Gastric ulcer, biopsy, B. Gastric antrum/body, biopsy Clinical Info: Abdominal pain Specimen Number: [id number] A AND B CPT code: 07343, 97477 METHODOLOGY: Deparaffinized sections of prefer/formalin-fixed tissue or [...] oped and their performance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 DISCONTINUED - T4, FREE (THYROXINE) ([id number]) Indication: Abnormal TSH Abnormal TSH : DISCONTINUED - T3, FREE (TRIDOTHYRONINE) ([id number]) Indication: Abnormal TSH Abnormal TSH : DISCONTINUED - TSH (THYROID STIMULATING HORMONE) ([id number]) Indication: Abnormal TSH Encounter for screening for [...] NOS : DISCONTINUED - HEPATIC FUNCTION PANEL ([id number]) Indication: FUNGUS, NOS Hypertension : DISCONTINUED - TSH ([id number]) Indication: Hypertension GERD (gastroesophageal reflux disease) : [...] getting worse-full End: 30-Dec-2017 11:33 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 He is not doing well [...] For Left Knee replacement Dr. Hernandez in [place] Aug 09, 2015. When pt had Rt [...] mcmanus has been getting her vicoden from [employer] - so encoruaged her to discuss with [...] (obesity ). 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
--- OUTSIDE RECORDS SUMMARY | 2018-07-24 21:26 | XMS RPT_ITS | Continuity of Care Document ---
:1945 External Reference #:[id number] Author Organization [facility] Address [address] [facility] [address] [place] [address] Phone Care Team Providers Name Role Phone Serena Quiñonez CNP Unavailable Anette Connolly Unavailable Dr. Acosta Talbot Unavailable Michael Duncan Unavailable Logan El DO Unavailable Slarb CLINICAL DOCUMENTATION MANAGER, Cheryle Unavailable Unavailable Long CLINICAL DOCUMENTATION MANAGER, Kalie L Unavailable Unavailable long, yuko Unavailable [...] Serena Mcmanus Start : 08-Apr-2018 Active Comments:OARRS khjezdeiB31.9f43.21Thirty Losartan Potassium 50 MG Oral Tablet 1 [...] Quantity: 2 {Tablet} Refills: 1 Ordered:10-Jan-2018 Long CLINICAL DOCUMENTATION MANAGERKalie Start : 10-Jan-2018 Active ALEVE, 220MG (Oral [...] 27-Jun-2015 End : 04-Jul-2015 Inactive CITRACAL/VITAMIN D, 546-653ZZ-KEFP (Oral Tablet) 2 QD for 0 days Refills: 0 Ordered:03-Oct-2011 Abby Jones LPN End : 03-Oct-2011 Inactive CLARINEX REDITABS, 5MG (Oral Tablet Dispersible) 1 (one) Tablet Disperse daily for 0 days Quantity: 5 {Tablet_Disperse} Refills: 0 Ordered:06-Jul-2010 RAMA Webster Start : 05-Dec-2009 End : 06-Jul-2010 Inactive CORTISPORIN, 3.5-61816-7 (Otic Solution) 4 Solution Solution tid for [...] 0 Ordered:15-Aug-2015 Brandishanamichelle MARTINEZ, Serena Cabanmichelle MARTINEZ Sernea Mcmanus Start : 27-Jun-2015 End : 27-Jul-2015 [...] Quantity: 30 {Tablet} Refills: 0 Ordered:18-Nov-2015 Olamide WEB DESIGN INSTRUCTOR, Serena Patton WEB DESIGN INSTRUCTOR, Serena Mcmanus Start : 14-Oct-2015 End : 13-Nov-2015 Inactive LEVAQUIN, 500MG (Oral Tablet) 1 Tablet daily for 10 days Quantity: 10 {Tablet} Refills: 0 Ordered:01-Oct-2012 Olamide WEB DESIGN INSTRUCTOR, Serena Patton CNP, Serena Mcmanus Start : 01-Oct-2012 End : 11-Oct-2012 Inactive Comments:void after 30 days LEXAPRO, 10MG (Oral Tablet) 1 Tablet QD for 0 days Quantity: 10 {Tablet} Refills: 0 Ordered:09-Jul-2011 RAAM Webster Start : 09-Jul-2011 End : 09-Jul-2011 [...] : 08-Aug-2010 End : 28-Sep-2011 Inactive NYSTOP, 818338WVWK/GM (External Powder) Powder take as directed for [...] : 20-Jun-2012 Discontinued Comments:This order discontinued per [facility]. OXYCODONE HCL, 5MG (Oral Tablet) 1 [...] Quantity: 30 {Capsule} Refills: 6 Ordered:15-Dec-2014 Slarb CLINICAL DOCUMENTATION MANAGER, Cheryle Start : 20-Feb-2013 End : 15-Dec-2014 Discontinued TESSALON PERLES, 100MG (Oral Capsule) 1 (one) Capsule tid for 0 days Quantity: 30 {Capsule} Refills: 0 Ordered:11-Aug-2007 Dana Johnson Start : 11-Aug-2007 End : 06-Nov-2007 Discontinued TOPICORT, 0.25% (External Cream) 1 (one) Cream bid for 0 days Quantity: 1 {Tube} Refills: 0 Ordered:02-Nov-2014 Slarb CLINICAL DOCUMENTATION MANAGER, Cheryle Start : 30-Jun-2014 End : 02-Nov-2014 Discontinued TYLENOL WITH CODEINE #3, 300-30MG (Oral Tablet) 1 (one) Tablet q6-8 hrs prn for 0 days Quantity: 30 {Tablet} Refills: 0 Ordered:27-Jun-2015 Slarb CLINICAL DOCUMENTATION MANAGER, Cheryle Start : 11-Mar-2015 End : 27-Jun-2015 Discontinued TYLENOL, 325MG (Oral Tablet) 1 PRN for 0 days Refills: 0 Ordered:27-Jun-2015 Slarb CLINICAL DOCUMENTATION MANAGER, Cheryle Start : 02-Mar-2015 End : [...] (M79.609, 729.5) Status: Inactive as of 24-May-2014 terminal operations manager (current) use of anticoagulants (Z79.01, V58.61) Status: [...] (HP) Result: Comments: See Note; NOTES: [facility] Imaging Services [address] [place] [address] Verdana 4d Dexa Bone Density Study (HP) MR#: [id number] Acct: [id number] Name: EVENS SERRANO Germaine Rep #: [id number] : 1945 F 71 From: Michael Noland MD PCP: Serena Quiñonez Status: REG CLI Study: Dexa Bone Density Study (HP) Date of Exam: 11/13/16 Exam# [id number] Ordering Dr: Kyle Quiñonez STUDY: DUAL ENERGY [...] Michael Noland MD at 7:57 EDT Tel [phone], Service support , CC: Serena Quiñonez Engineering Secretary: Signed 13-Nov-2016 SCREENING MAMM (CAD), BILAT Result: Comments: See Note; NOTES: [facility] Imaging Services [address] [place] [address] Verdana 4d SCREENING MAMM (CAD), BILAT MR#: [id number] Acct: [id number] Name: TRINI SERRANO Rep #: [id number] : 1945 F 71 From: Michael Noland MD PCP: Serena Quiñonez Status: REG CLI Study: SCREENING MAMM (CAD), BILAT Date of Exam: 11/13/16 Exam# [id number] Ordering Dr: Yudith Quiñonez MAMMOGRAPHY - BILATERAL [...] y biopsy of a clinically suspicious abnormality. [id number] Electronically Signed: Michael Noland MD at 8:11 EDT Tel [phone], Service support , CC: Serena Quiñonez Engineering Secretary: Signed 17-Aug-2016 Chest PA and Lateral Result: Comments: See Note; NOTES: [facility] Imaging Services [address] [place] [address] Verdana 4d Chest PA and Lateral MR#: [id number] Acct: [id number] Name: MAURICIO SERRANO p #: [id number] : 1945 F 71 From: Michael Noland MD PCP: Micki Cruz MD Status: REG CLI Study: Chest PA and Lateral Date of Exam: 08/17/16 Exam# [id number] Ordering Dr: Serena Quiñonez STUDY: X-RAY CHEST [...] Michael Noland MD at 14:44 EST Tel [phone], Service support [phone], CC: Serena Quiñonez; Micki Cruz MD Engineering Secretary: Signed 03-Oct-2015 PT D/C Summary (1) Result: Comments: See Note; NOTES: [facility] [address] [place] [address] Fax REHABILITATION SE RVICES DISCHARGE SUMMARY MR#: [id number] Acct: [id number] Name: MAURICIO SERRANO Rep #: [id number] : 1945 70 From: Bolivar Newell DPT, OCS, CSCS Referring Dr.: OUT [facility] DOCTOR Status: REG RCR Eval Date: Discharge Date: HP - PT D/C Summary It has been my pleasure to treat MAURICIO SERRANO under orders from [facility] Doctor, SARATH HERNANDEZ for the diagnosis of [...] please feel free to call me at [phone]. Thank you for the referral of this patient. Sincerely, Bolivar Newell <Electronically signed by Bolivar Newell DPT, OCS, CSCS> 10/14 0646 CC: SARATH HERNANDEZ; Micki Cruz MD; OUT OF TOWN DOCTOR EBG Signed 09-Sep-2015 Re-Evaluation - PT (1) Result: Comments: See Note; NOTES: [facility] [address] [facility] [address] [place], [place] [address] Fax REEVALUATION / ME DICARE RECERTIFICATION [place] 4d PHYSICAL THERAPY MR#: [id number] Acct: [id number] Name: MAURICIO SERRANO Rep #: [id number] : 1945 70 From: Bolivar Newell DPT, OCS, CSCS Referring DrPaxton: [facility] DOCTOR Status: REG R Insurance: [facility] Out of [facility] Doctor, SARATH HERNANDEZ It has been [...] do not hesitate to contact me at [phone] by phone or if you have questions [...] Instruction Result: Comments: See Note; NOTES: [facility] Medical Records Department [address] [place] [address] Discharge Instruction 08/14/152021 MR#: [id number] Acct: [id number] Name: MAURICIO SERRANO Rep #: [id number] : 1945 70 From: Logan Keen MD PCP: Micki Cruz MD Status: DEP ER ED Disposition - Plan for ED Patient: Chief Complaint: Lower Extremity Injury Instructions: ED Dyspnea What to do if you have Problems For any increased pain, shortness of breath, bleeding, nausea or vomiting, chest pain, or any unexpected problems, contact your do ctor. Call [facility] ([phone]) or report to the closest Emergency Room. Call 911 if necessary. 08/18/15 0746 <Electronically signed by Logan Keen MD> Date ____ Logan Keen MD Cosigner Signature (If Indicated): Date CC: Micki Cruz MD 18-Aug-2015 Emergency Department Summary Result: Comments: See Note; NOTES: [facility] Medical Records Department [address] [place] [address] Emergency Department Summary MR#: [id number] Acct: [id number] Name: MAURICIO SERRANO Rep #: [id number] : 1945 70 From: Logan Keen MD PCP: Micki Cruz MD Status: DEP ER DATE OF SERVICE: 08/14/2015 CHIEF COMPLAINT: Shortness of breath, leg swelling. HISTORY OF PRESENT ILLNESS: A 70-year-old female who is 5 days status post left total knee repair done at [facility], presents with shortness of breath and leg [...] Discharge. Logan Keen MD T: NTS JOB: [id number] 08/18/15 0746 <Electronically signed by Logan stovall MD> Date Logan Keen MD Cosigner Signature (If Indicated): Date CC: Micki christine MD Date Dictated: 02/14/16 2022 Date Transcribed: 08/14/152021 Engineering Secretary: Signed 14-Aug-2015 CTA Chest W/WO Contrast Result: Comments: See Note; NOTES: [facility] Imaging Services [address] [place] [address] Verdana 4d CTA Chest W/WO Contrast MR#: [id number] Acct: [id number] Name: MAURICIO DORAN Rep #: [id number] : 1945 F 70 From: Sandy Lundberg MD PCP: Micki Cruz MD Status: REG ER Study: CTA Chest W/WO Contrast Date of Exam: 08/14/15 Exam# [id number] Ordering Dr: Logan Velasquez MD STUDY: CTA [...] MD at 20:03 EST , Service support [phone], CC: Germaine Cruz MD; Logan Keen MD Engineering Secretary: Signed 12-Aug-2015 Inital Evaluation (1) - PT Result: Comments: See Note; NOTES: [facility] [address] [place], [place] [address] Fax REHABILITATION SE RVICES INITIAL EVALUATION MR#: [id number] Acct: [id number] Name: MAURICIO SERRANO Rep #: [id number] : 1945 70 From: Bolivar Newell DPT, OCS, CSCS Referring Dr.: OUT OF TOWN DOCTOR Status: REG RCR Insurance: [facility] [employer] Date: Patient's Visit Information MAURICIO SERRANO is a 70 year old F, referred to Physical Therapy by Out of Town Doctor, ERENDIRA HERNANDEZ, with a diagnosis of L Knee TKA. Date of Evaluation: 08/11/15 Physical Therapist: Bolivar Newell - Visit Plan Frequency: 3x /Week Duration: 4-6 Weeks - Subjective Subjective: 2 days ago had L TKA at [facility] by Dr. Salazar. Had bone on bone [...] for shoes but takes time. Has a bridal gown fitter to get socks and pick things up [...] to be FAXED BACK to us at [phone] for Medicare purposes. Please let me know if there are questions or concerns regarding this plan of care. Conrad matos Signature: Date: <Electronically signed by Bolivar Newell DPT, OCS, CSCS> 08/12/15 0642 CC: SARATH HERNANDEZ; Micki shea MD; OUT OF TOWN DOCTOR EBG Signed For Medicare only, by signing this I certify the plan of care. Physicians Signature Date 12-Jul-2015 ELECTROCARDIOGRAM, COMPLETE (ECG) (43996) Comments: sinus rhythm within normal limits Result: [MEASUREMENTS ANALYSIS] Date of Test: 07/12/2015 13:50:06; Heart Rate: 72; SD Interval: 146; QRS: 90; QT Interval: 392; Corrected QT Interval (QTc): 413; P [place]: 47; QRS [place]: 20; T [place]: 51; Blood Pressure: 122/80 [ECG DIAGNOSTIC STATEMENTS] Date of Test: 07/12/2015 13:50:06; Summary: Sinus Rhythm WITHIN NORMAL LIMITS 30-Jun-2015 Abdomen/Pelvis without Cont Result: Comments: See Note; NOTES: [facility] Imaging Services [address] [place] [address] Verdana 4d Abdomen/Pelvis without Cont MR#: [id number] Acct: [id number] Name: MAURICIO SERRANO Rep #: [id number] : 1945 F 69 From: Bella Meade MD PCP: Micki Cruz MD Status: REG CLI Study: Abdomen/Pelvis without Cont Date of Exam: 06/30/15 Exam# [id number] Alexia england Dr: Serena Quiñonez STUDY: CT [...] at 10:49 EST Tel , Service support [phone], CC: Serena Quiñonez; Micki Cruz MD Engineering Secretary: Signed 17-Feb-2015 Abdomen/Pelvis WITH Contrast Result: Comments: See Note; NOTES: [facility] Imaging Services [address] [place] [address] CAT Scan Report MR#: [id number] Acct: [id number] Name: MAURICIO SERRANO Rep #: [id number] : 1945 F 69 From: Gerald Persaud DO PCP: Micki Cruz MD Status: REG CLI Study: Abdomen/Pelvis WITH Contrast Date of Exam: 02/17/15 Exam# [id number] Ordering Dr: Micki Cruz MD [facility] DY: CT ABDOMEN AND PELVIS [...] at 19:10 EDT Tel , Service support [phone], CC: Micki Cruz MD Engineering Secretary: Signed 02-Nov-2014 Chest WITH Contrast Result: Comments: See Note; NOTES: [facility] Imaging Services [address] [place] [address] CAT Scan Report MR#: [id number] Acct: [id number] Name: MAURICIO SERRANO Rep #: [id number] : 1945 F 69 From: Michael Noland MD PCP: Micki Cruz MD Status: REG CLI Study: Chest WITH Contrast Date of Exam: 11/02/14 Exam# [id number] Ordering Dr: Serena Quiñonez STUDY: CTA CHEST [...] Michael Noland MD at 15:54 EDT Tel [phone], Service support [phone], CC: Serena Quiñonez; Micki Cruz MD Engineering Secretary: Signed 15-Mar-2014 Toe(s) Min 2 Views Result: Comments: See Note; NOTES: [facility] Imaging Services [address] [place] [address] Radiology Report MR#: [id number] Acct: [id number] Name: MAURICIO SERRANO Rep #: [id number] : 1945 F 68 From: Romaine Tafoya DO PCP: Micki Cruz MD Status: REG CLI Study: Toe(s) Min 2 Views Date of Exam: 03/15/14 Exam# [id number] Ordering Dr: Serena Quiñonez STUDY: X-RAY LEFT [...] Tafoya DO 2 at 16:54 EDT Tel [phone], Service support [phone], RAD/Toe(s) Min 2 Views IMPRESSION: No acute abnormality of the left second toe. Electron ically Signed: Romaine Tafoya DO at 16:54 EDT Tel [phone], Service support [phone], CC: Serena Quiñonez; Micki Cruz MD Engineering Secretary: Signed 15-Feb-2014 Spine Cervical without Contras Result: Comments: See Note; NOTES: [facility] Imaging Services [address] [place] [address] CAT Scan Report MR#: [id number] Acct: [id number] Name: MAURICIO SERRANO Rep #: [id number] : 1945 F 68 From: Michael Noland MD PCP: Micki Cruz MD Status: REG CLI Study: Spine Cervical without Contras Date of Exam: 02/15/14 Exam# [id number] Ordering Dr: Micki Cruz MD STUDY: CT [...] Noland MD at 14:08 E DT Tel [phone], Service support [phone], CC: Micki Cruz MD Engineering Secretary: Signed 11-Feb-2014 Cerv Spine 4 or 5 Views Result: Comments: See Note; NOTES: [facility] Imaging Services [address] [place] [address] Radiology Report MR#: [id number] Acct: [id number] Name: MAURICIO SERRANO Rep #: [id number] : 1945 F 68 From: Julio Charles DO PCP: Micki Cruz MD Status: REG CLI Study: Cerv Spine 4 or 5 Views Date of Exam: 02/11/14 Exam# [id number] Ordering Dr: Serena Quiñonez STUDY: X-RAY - [...] Charles DO at 19 :48 EDT Tel [phone], Service support [phone], CC: Serena Cruz MD Engineering Secretary: Signed 09-Oct-2013 Knee 4 or More Views Result: Comments: See Note; NOTES: [facility] Imaging Services [address] [place] [address] Radiology Report MR#: [id number] Acct: [id number] Name: MAURICIO SERRANO Rep #: [id number] : 1945 F 68 From: Romaine Tafoya DO PCP: Micki Cruz MD Status: REG CLI Study: Knee 4 or More Views Date of Exam: 10/09/13 Exam# [id number] Ordering Dr: Serena Quiñonez STUDY: X-RAY - [...] Romaine Tafoya DO at 19:01 EDT Tel [phone], Service support [phone], CC: Serena Cruz MD Engineering Secretary: Signed 03-Sep-2013 Hepatobilliary Imaging Result: Comments: See Note; NOTES: [facility] Imaging Services [address] [place] [address] Nuclear Medicine Report MR#: [id number] Acct: [id number] Name: MAURICIO SERRANO Rep #: [id number] : 1945 F 68 From: Gene Diallo DO PCP: Micki Cruz MD Status: REG CLI Study: Hepatobilliary Imaging Date of Exam: 09/03/13 Exam# [id number] Ordering Dr: Catalina Daly DO CLINICAL: 68-year-old [...] M.D. at 7:07 EST , Service support [phone], Fa x [phone] CLINICAL: 68-year-old female with reported history of [...] CC: Micki Cruz MD; Catalina Daly DO Engineering Secretary: Signed 27-Aug-2013 Gallbladder Result: Comments: See Note; NOTES: [facility] Imaging Services [address] [place] [address] Ultrasound Report MR#: [id number] Acct: [id number] Name: MAURICIO SERRANO Rep #: [id number] : 1945 F 68 From: Michael Noland MD PCP: Micki Cruz MD Status: REG CLI Study: Gallbladder Date of Exam: 08/27/13 Exam# [id number] Ordering Dr: Catalina Daly DO STUDY: AB [...] M.D. at 10:31 EST , Service support [phone], CC: Micki Cruz MD; Catalina Daly DO Engineering Secretary: Signed Family History Unknown Family Member Name [...] kg/m2 Body Surface Area Calculated 1.98 m2 30-Dic-028679:53 Temperature 97.8 f Pulse 75 /min Comments: [...] kg/m2 Body Surface Area Calculated 2.05 m2 10-Orc-061311:12 Temperature 97.8 f Comments: Method: Temporal Pulse [...] kg/m2 Body Surface Area Calculated 2.11 m2 16-Uah-420830:58 Temperature 97.9 f Comments: Method: Oral Pulse [...] kg/m2 Body Surface Area Calculated 1.9 m2 62-Iqk-011104:15 Temperature 98.3 f Comments: Method: Oral Pulse [...] 0.00 cm Results Date Description Value Details 98-Lak-238362:28 Metabolic Panel, Comprehensive Comments: Jan 2017; PATIENT NOT FASTINGPERFORMED BY: LabCoRaritan [facility] CenterZrdtra6419 [facility] [id number] (03490) ALT (SGPT) 14 [iU]/L (Normal) Range: 0-32 [...] Glucose, Serum 77 mg/dL (Normal) Range: 65-99 25-Drk-849282:28 CALCIFEDIOL (91796) Comments: Jan 2017; PATIENT NOT FASTINGPERFORMED BY: [employer]6370 [facility] [id number] Vitamin D, 25-Hydroxy 33.0 ng/mL (Normal) Range: 30.0-100.0 Comments: Vitamin D deficiency has been defined by the [place] [facility] and an Endocrine Society practice guideline as alevel of serum 25-OH vitamin D less than 20 ng/mL (1,2).The Endocrine Society went on to further define vitamin Dinsufficiency as a level between 21 and 29 ng/mL (2).1. IOM ([place] of Medicine). 2010. Dietary reference intakes for calcium and D. [place]: The National Academies Press.2. Miki MF, Jamie NC, Cata VEGA, et al. Evaluation, treatment, and prevention of vitamin D deficiency: an Endocrine Society clinical practice guideline. JCEM. 2010; 96(7):1911-30. 81-Bey-434202:21 C-REACTIVE PROTEIN (18750) Comments: PATIENT NOT FASTINGPERFORMED BY: CB [facility] Cwbkre[address] [place] [id number] C-Reactive Protein, Quant 6.7 mg/L (Abnormal) Range: 0.0-4.9 06-Glu-029826:21 SED RATE ERYTHROCYTE (05307) Comments: PATIENT NOT FASTINGPERFORMED BY: [employer] Bopkww4297 [facility] [id number] Sedimentation Rate-Westergren 5 mm/h (Normal) Range: 0-40 33-Ozg-299976:21 METABOLIC PANEL, COMPREHENSIVE Comments: PATIENT NOT FASTINGPERFORMED BY: [employer] Mphvnx5893 [facility] [id number] (43305) ALT (SGPT) 12 [iU]/L (Normal) Range: 0-32 [...] Glucose, Serum 69 mg/dL (Normal) Range: 65-99 67-Gib-876137:21 CBC, PLATELETS & AUT DIFF Comments: PATIENT NOT FASTINGPERFORMED BY: [employer]6370 [facility] [id number] (70613) Immature Grans (Abs) 0.0 {x10E3/uL} (Normal) Range: [...] (Normal) Range: 3.4-10.8 :08 T4, FREE (THYROXINE) (68786) Comments: PATIENT NOT FASTINGPERFORMED BY: CeltaxsysRaritan Bay Medical CenterVeptfq7437 [facility] [id number] T4,Free(Direct) 1.31 ng/dL (Normal) Range: 0.82-1.77 :08 T3, FREE (TRIDOTHYRONINE) (16995) Comments: PATIENT NOT FASTINGPERFORMED BY: CeltaxsysAcoma-Canoncito-Laguna Service UnitMmtgnj7459 [facility] [id number] Triiodothyronine,Free,Serum 2.2 pg/mL (Normal) Range: 2.0-4.4 :08 TSH (99039) Comments: PATIENT NOT FASTINGPERFORMED BY: LabCoRar[facility] CenterSoeume8755 [facility] [id number] TSH 3.520 {uIU/mL} (Normal) Range: 0.450-4.500 11-Ury-995727:28 Metabolic Panel, Comprehensive Comments: PATIENT NOT FASTINGPERFORMED BY: [facility]Mun[facility]6370 [facility] [id number] (52188) ALT (SGPT) 15 [iU]/L (Normal) Range: 0-32 [...] Glucose, Serum 93 mg/dL (Normal) Range: 65-99 91-Sqv-954661:28 CBC, Platelets & Auto Diff Comments: PATIENT NOT FASTINGPERFORMED BY: LabCoRar[facility] Medical CenterAjptov7771 [facility] [id number] (54386) Immature Grans (Abs) 0.0 {x10E3/uL} (Normal) Range: [...] 3.77-5.28 WBC 6.8 {x10E3/uL} (Normal) Range: 3.4-10.8 39-Abv-812718:28 TSH (28250) Comments: PATIENT NOT FASTINGPERFORMED BY: [facility] Rnecaq2169 [facility] [id number] TSH 0.034 {uIU/mL} (Abnormal) Range: 0.450-4.500 69-Fpx-470124:40 CBC W/Diff, Automated Comments: [facility] [address] [place], [place], [address] Absolute Lymph 2.31 {X10_3/ul} (Normal) Range: 0.83-4.51 [...] 4.2-5.4 WBC 8.7 K/mm3 (Normal) Range: 4.4-11.0 33-Ksj-876225:40 Comprehensive Metabolic Profil Comments: [facility] [address] [place], [place], [address] GAP 7 (Normal) Range: 5-15 CO2 29.0 [...] 7-18 GLU 106 mg/dL (Normal) Range: 70-110 37-Xdp-721972:07 URINE BECKY CULTURE-IDENTIFICATN Comments: PATIENT NOT FASTINGPERFORMED BY: [facility] Enpscn2140 [facility] [id number] ([id number]) Result 1 CNSNSS (Abnormal) Comments: Coagulase negative [...] S Urine Final report Culture,Comprehens (Abnormal) svetlana 01-Hqx-951894:07 Metabolic Panel, Comprehensive Comments: PATIENT NOT FASTINGPERFORMED BY: [facility]6370 [facility] [id number] (70043) ALT (SGPT) 14 [iU]/L (Normal) Range: 0-32 [...] Glucose, Serum 76 mg/dL (Normal) Range: 65-99 03-Qlj-170642:07 CBC, Platelets & Auto Comments: PATIENT NOT FASTINGPERFORMED BY: [facility]6370 [facility] [id number] Information: [id number], [id number] Diff (12743) Immature Grans (Abs) 0.0 {x10E3/uL} (Normal) Range: [...] 3.77-5.28 WBC 8.1 {x10E3/uL} (Normal) Range: 3.4-10.8 65-Xbg-605407:07 PT (Prothrobim Time) (09860) Comments: PATIENT NOT FASTINGPERFORMED BY: LabCoRar[facility] CenterIrvnlh0625 [facility] [id number] Prothrombin Time 10.4 {sec} (Normal) Range: 9.1-12.0 INR 1.0 (Normal) Range: 0.8-1.2 Comments: Reference interval is for non-anticoagulated patients. . Suggested INR therapeutic range for Vitamin K anta gonist therapy: Standard Dose (moderate intensity therapeutic range): 2.0 - 3.0 Higher intensity therapeutic range 2.5 - 3.5 48-Uru-06671:53 Urinalysis, Office (29576) UA - LEUKOCYTE ESTERASE Small (Normal) UA - NITRITE Negative (Normal) URINE UROBILINGN IVAN TIMED Normal mg/dL (Normal) UA - PROTEIN Negative mg/dL (Normal) UA - PH 5.0 (Normal) Comments: 5.5 UA - BLOOD Non Hemolyzed Trace (Normal) UA - SPECIFIC GRAVITY 1.005 (Normal) UA - KETONES Negative mg/dL (Normal) UA - BILIRUBIN Negative (Normal) UA - GLUCOSE Negative (Normal) 06-Mds-920006:17 Urinalysis, Office (77386) UA - LEUKOCYTE ESTERASE Large (Normal) UA - NITRITE Negative (Normal) URINE UROBILINGN IVAN TIMED Normal mg/dL (Normal) UA - PROTEIN 100 mg/dL (Normal) UA - PH 6 (Abnormal) UA - BLOOD Hemolyzed Large (Normal) UA - SPECIFIC GRAVITY 1.025 (Normal) UA - KETONES Negative mg/dL (Normal) UA - BILIRUBIN Negative (Normal) UA - GLUCOSE Negative (Normal) 31-May-2015 EGD ([facility]) See Note (Normal) Comments: [facility] [address] [place], [address] 12:32 Comments: Patient: MAURICIO SERRANO : 1945 (69/F) Acct Num: [id number] Phys: Eugenio Laguna Unit Num: [id number] Loc: LABSPEC Specimen: [id number] Received: 05/31/15 - 1610 Spec Type: EGD BIOPSY TISSUES TISSUES: COMMENT The results of immunohistochemistry for Helicobacter pylori will be reported separately ([id number]). Alcian blue/PAS stain with matched control was [...] one cassette. / AM: 06/01/15 TC:3 CPT: 15866, 53208 HEADER OPERATION: EGD w ith biopsy PRE-OP [...] of intestinal metaplasia. AM: 06/02/15 Signed Olvin [facility] 06/02/15 <signature on file> 31-May-2015 IMMUNOHISTOCHEMISTRY See Note (Normal) Comments: [address] [place], [address] 0:00 Comments: Patient: MAURICIO SERRANO : 1945 (69/F) Acct Num: [id number] Phys: Eugenio Laguna Unit Num: [id number] Loc: LABSPEC Specimen: [id number] Received: 06/02/151156 Spec Type : IMMUNO TISSUES TISSUES: SPECIMEN INFORMATION: Tissue Source: Gastric antrum, biopsy Clinical Info: Peptic ulcer disease Specimen Number: [id number] CPT code: 93424 METHODOL OGY: Deparaffinized sections of prefer/formalin-fixed tissue [...] their performance characteristics determined by [facility]. They may not have been cleared or approved by the U.S. Food and Drug Administration. The FDA has determined that such clearance or approval is not necessary. INTERPRETATION: Gastric antrum, biopsy: Negative for H elicobacter pylori. AM: 06/02/15 PHYSICIAN AND INSTITUTION [address] [address] Signed Olvin [facility] 06/02/15 <signature on file> 01-Mar-2015 Gastric Biopsy See Note (Normal) Comments: Test performed at:[facility] [address] [place] [address] 10:56 Comments: Patient: MAURICIO SERRANO : 1945 (69/F) Acct Num: [id number] Phys: Eugenio Laguna Unit Num: [id number] Loc: LABSPEC Specimen: [id number] Received: 03/01/151700 Spec Type: Gastric Bx TISSUES TISSUES: COMMENT A AND B - The results of immunohistochemistry for Helicobacter pylori will be reported separately ([id number]). GROSS DESCRIPTION A - Recei michelle is [...] one cassette. / DOREEN:charles 03/02/15 TC:2 CPT: 58272 x2 HEADER OPERATION: EGD with biopsy PRE-OP [...] Note (Normal) Comments: Test performed at:[facility] [address] [place] [address] [id number] 0:00 Comments: Patient: MAURICIO SERRANO : 1945 (69/F) Acct Num: [id number] Phys: Eugenio Laguna Unit Num: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 He is not doing well and [...] The patient does have durable power of civil rights attorney and living will. The patient has [...] For Left Knee replacement Dr. Hernandez in [place] Aug 09, 2015. When pt had Rt [...] mcmanus has been getting her vicoden from [facility] - so encoruaged her to discuss with [...] ). 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
--- OUTSIDE RECORDS SUMMARY | 2018-07-24 21:27 | XMS RPT_ITS | Continuity of Care Document ---
:1945 External Reference #:[id number] Author Organization [facility] Address [address] [place] [address] Phone Care Team Providers Name Role Phone Serena Quiñonez CNP Unavailable Anette Connolly Unavailable Dr. Acosta Talbot Unavailable Michael Duncan Unavailable Logan El DO Unavailable Slarb GOLF BALL MOLDER, Cheryle Unavailable Unavailable Long GOLF BALL MOLDER, Kalie L Unavailable Unavailable long, yuko Unavailable [...] Serena Mcmanus Start : 08-Apr-2018 Active Comments:OARRS hcvoryzvI05.9f43.21Thirty Losartan Potassium 50 MG Oral Tablet 1 (one) Tablet daily for 30 days Quantity: 30 {Tablet} Refills: 6 Ordered:12-Feb-2018 Olamide MARTINEZ, Serena Ptaton CNP, Serena Mcmanus Start : 12-Feb-2018 End : 07-Jul-2017 Active MVI daily Active Synthroid 112 MCG Oral Tablet 1 Tablet hold on and Saturdays for 30 days Quantity: 30 {Tablet} Refills: 3 Ordered:10-Jun-2018 Olamide MARTINEZ, Serena Patton CNP, Serena Mcmanus Start : 10-Jun-2018 Active Comments:generic okay Tumeric daily Active VESIcare [...] 27-Jun-2015 End : 04-Jul-2015 Inactive CITRACAL/VITAMIN D, 712-388LC-BAVP (Oral Tablet) 2 QD for 0 days Refills: 0 Ordered:03-Oct-2011 Abby Jones LPN End : 03-Oct-2011 Inactive CLARINEX REDITABS, 5MG (Oral Tablet Dispersible) 1 (one) Tablet Disperse daily for 0 days Quantity: 5 {Tablet_Disperse} Refills: 0 Ordered:06-Jul-2010 RAMA Webster Start : 05-Dec-2009 End : 06-Jul-2010 Inactive CORTISPORIN, 3.5-85916-4 (Otic Solution) 4 Solution Solution tid for [...] Quantity: 30 {Tablet} Refills: 0 Ordered:18-Nov-2015 Olamide AGENCY RECRUITER, Serena Patton AGENCY RECRUITER, Serena Mcmanus Start : 14-Oct-2015 End : 13-Nov-2015 Inactive LEVAQUIN, 500MG (Oral Tablet) 1 Tablet daily for 10 days Quantity: 10 {Tablet} Refills: 0 Ordered:01-Oct-2012 Olamide AGENCY RECRUITER, Serena Patton CNP, Serena Mcmanus Start : [...] : 08-Aug-2010 End : 28-Sep-2011 Inactive NYSTOP, 128747FNWI/GM (External Powder) Powder take as directed for [...] : 20-Jun-2012 Discontinued Comments:This order discontinued per [facility]. OXYCODONE HCL, 5MG (Oral Tablet) 1 (one) [...] Quantity: 30 {Capsule} Refills: 6 Ordered:15-Dec-2014 Slarb GOLF BALL MOLDER, Cheryle Start : 20-Feb-2013 End : 15-Dec-2014 Discontinued TESSALON PERLES, 100MG (Oral Capsule) 1 (one) Capsule tid for 0 days Quantity: 30 {Capsule} Refills: 0 Ordered:11-Aug-2007 Dana Johnson Start : 11-Aug-2007 End : 06-Nov-2007 Discontinued TOPICORT, 0.25% (External Cream) 1 (one) Cream bid for 0 days Quantity: 1 {Tube} Refills: 0 Ordered:02-Nov-2014 Slarb GOLF BALL MOLDER, Cheryle Start : 30-Jun-2014 End : 02-Nov-2014 Discontinued TYLENOL WITH CODEINE #3, 300-30MG (Oral Tablet) 1 (one) Tablet q6-8 hrs prn for 0 days Quantity: 30 {Tablet} Refills: 0 Ordered:27-Jun-2015 Slarb GOLF BALL MOLDER, Cheryle Start : 11-Mar-2015 End : 27-Jun-2015 Discontinued TYLENOL, 325MG (Oral Tablet) 1 PRN for 0 days Refills: 0 Ordered:27-Jun-2015 Slarb GOLF BALL MOLDER, Cheryle Start : 02-Mar-2015 End : 27-Jun-2015 [...] (M79.609, 729.5) Status: Inactive as of 24-May-2014 assisted (current) use of anticoagulants (Z79.01, V58.61) Status: [...] Sigmoidoscopy Completed Comments: 05/01 Date Value Details 29-May-2018 SCREENING MAMM (CAD), BILAT Result: Comments: See Note; NOTES: [facility] Imaging Services [address] [place] [address] SCREENING MAMM (CAD), BILAT MR#: [id number] Acct: [id number] Name: MAURICIO SERRANO Germaine Rep #: [id number] : 1945 F 72 From: Michael Noland MD PCP: Serena Quiñonez NP Status: REG CL Study: SCREENING MAMM (CAD), BILAT Date of Exam: 05/29/18 Exam# [id number] Ordering Dr: Serena Quiñonez NP-Corbin MAMMOGRAPHY - BILATERAL SCREENING REASON FOR EXAM: Female, 72 years old. Routine annual screening examination. PERTINENT HISTORY: Sisters with breast cancer. TECHNIQUE: Digital bilateral breast erinn (3D mammographic acquisition) in the CC and MLO projections. 2-D mediolateral oblique (MLO) and craniocaudad (CC) views of both breasts were obtained. CAD: Full Field Digital Mammography with Computer A dded Detection was performed. COMPARISON: Comparison is made with prior study dated November 13, 2016. FINDINGS: Breast Composition: There are scattered areas of fibrogl andular density. There are no dominant masses or suspicious calcifications. No other significant abnormalities are identified. There has been no significant change since the prior study. BI/SCREENING MAMM (CAD), BILAT IMPRESSION: Stable bilateral screening mammogram. Yearly follow-up mammogram recommended. (A) ___ ASSESSMENT CATEGORY: BIRADS Category 2: Benign. A letter regarding these results will be sent to the patient by the facility within 30 days. Approximately 10% of breast cancers are not detected by mammography. A normal mammogram should not delay biopsy of a clinically suspicious abnormality. [id number] Electronically Signed: Michael Noland MD at 9:00 EST Tel [phone], Service sup port , CC: Serena Quiñonez NP Electronics Instructor: Signed 13-Nov-2016 Dexa Bone Density Study (HP) Result: Comments: See Note; NOTES: [facility] Imaging Services [address] [place] [address] Verdana 4d Dexa Bone Density Study (HP) MR#: [id number] Acct: [id number] Name: ZACHEVENS PUENTE Rep #: [id number] : 1945 F 71 From: Michael Noland MD PCP: Serena Quiñonez Status: REG CLI Study: Dexa Bone Density Study (HP) Date of Exam: 11/13/16 Exam# [id number] Ordering Dr: Kyle Quiñonez STUDY: DUAL ENERGY [...] Michael Noland MD at 7:57 EDT Tel [phone], Service support , CC: Serena Quiñonez Electronics Instructor: Signed 13-Nov-2016 SCREENING MAMM (CAD), BILAT Result: Comments: See Note; NOTES: [facility] Imaging Services [address] [place] [address] Verdana 4d SCREENING MAMM (CAD), BILAT MR#: [id number] Acct: [id number] Name: ZACHTRINI Herron Rep #: [id number] : 1945 F 71 From: Michael Noland MD PCP: Serena Quiñonez Status: REG CLI Study: SCREENING MAMM (CAD), BILAT Date of Exam: 11/13/16 Exam# [id number] Ordering Dr: Yudith Quiñonez MAMMOGRAPHY - BILATERAL [...] y biopsy of a clinically suspicious abnormality. [id number] Electronically Signed: Michael Noland MD at 8:11 EDT Tel [phone], Service support , CC: Serena Quiñonez Electronics Instructor: Signed 17-Aug-2016 Chest PA and Lateral Result: Comments: See Note; NOTES: [facility] Imaging Services [address] [place] [address] Verdana 4d Chest PA and Lateral MR#: [id number] Acct: [id number] Name: MAURICIO SERRANO Re p #: [id number] : 1945 F 71 From: Michael Noland MD PCP: Micki Cruz MD Status: REG CLI Study: Chest PA and Lateral Date of Exam: 08/17/16 Exam# [id number] Ordering Dr: Serena Quiñonez STUDY: X-RAY CHEST [...] Michael Noland MD at 14:44 EST Tel [phone], Service support [phone], CC: Serena Quiñonez; Micki Cruz MD Electronics Instructor: Signed 03-Oct-2015 PT D/C Summary (1) Result: Comments: See Note; NOTES: [facility] Physical Therapy [facility] [address] [place], [place] [address] Fax REHABILITATION SE RVICES DISCHARGE SUMMARY MR#: [id number] Acct: [id number] Name: MAURICIO SERRANO Rep #: [id number] : 1945 70 From: Bolivar Newell DPT, OCS, CSCS Referring Dr.: OUT OF [facility] DOCTOR Status: REG RCR Eval Date: Discharge Date: HP - PT D/C Summary It has been my pleasure to treat MAURICIO SERRANO under orders from Out [facility] Doctor, SARATH HERNANDEZ for the diagnosis [...] please feel free to call me at [phone]. Thank you for the referral of this patient. Sincerely, Bolivar Newell <Electronically signed by Bolivar Newell DPT, OCS, CSCS> 10/14 0646 CC: SARATH HERNANDEZ; Micki Cruz MD; OUT OF TOWN DOCTOR EBG Signed 09-Sep-2015 Re-Evaluation - PT (1) Result: Comments: See Note; NOTES: [facility] [address] [place] [address]. [address] [place], [place] [address] Fax REEVALUATION / ME DICARE RECERTIFICATION [place] 4d PHYSICAL THERAPY MR#: [id number] Acct: [id number] Name: MAURICIO SERRANO Rep #: [id number] : 1945 70 From: Bolivar Newell DPT, OCS, CSCS Referring DrPaxton: SHAHNAZ Knox [facility] DOCTOR Status: REG R Insurance: [employer] Out of [facility] Doctor, SARATH HERNANDEZ It has been [...] do not hesitate to contact me at [phone] by phone or if you have questions [...] Discharge Instruction Result: Comments: See Note; NOTES: [facility] Medical Records Department [address] [place] [address] Discharge Instruction 08/14/152021 MR#: [id number] Acct: [id number] Name: MAURICIO SERRANO Rep #: [id number] : 1945 70 From: Logan Keen MD PCP: Micki Cruz MD Status: [facility] ER ED Disposition - Plan for ED Patient: Chief Complaint: Lower Extremity Injury Instructions: ED Dyspnea What to do if you have Problems For any increased pain, shortness of breath, bleeding, nausea or vomiting, chest pain, or any unexpected problems, contact your do ctor. Call [facility] ([phone]) or report to the closest Emergency Room. Call 911 if necessary. 08/18/15 0746 <Electronically signed by Logan Keen MD> Date ____ Logan Keen MD Cosigner Signature (If Indicated): Date CC: Micki Cruz MD 18-Aug-2015 Emergency Department Summary Result: Comments: See Note; NOTES: [facility] Medical Records Department [address] [place] [address] Emergency Department Summary MR#: [id number] Acct: [id number] Name: MAURICIO SERRANO Rep #: [id number] : 1945 70 From: Logan Keen MD PCP: Micki Cruz MD Status: [facility] ER DATE OF SERVICE: 08/14/2015 CHIEF COMPLAINT: Shortness of breath, leg swelling. HISTORY OF PRESENT ILLNESS: A 70-year-old female who is 5 days status post left total knee repair done at [place], presents with shortness of breath and leg [...] Discharge. Logan Keen MD T: NTS JOB: [id number] 08/18/15 0746 <Electronically signed by Logan stovall MD> Date Logan Keen MD Cosigner Signature (If Indicated): Date CC: Micki christine MD Date Dictated: 08/14/152021 Date Transcribed: 08/14/152021 Electronics Instructor: Signed 14-Aug-2015 CTA Chest W/WO Contrast Result: Comments: See Note; NOTES: [facility] Imaging Services [address] [address] Verdana 4d CTA Chest W/WO Contrast MR#: [id number] Acct: [id number] Name: MAURICIO DORAN Rep #: [id number] : 1945 F 70 From: Sandy Lundberg MD PCP: Micki Cruz MD Status: REG ER Study: CTA Chest W/WO Contrast Date of Exam: 08/14/15 Exam# [id number] Ordering Dr: Logan Velasquez MD STUDY: CTA [...] MD at 20:03 EST , Service support [phone], CC: Germaine Cruz MD; Logan Keen MD Electronics Instructor: Signed 12-Aug-2015 Inital Evaluation (1) - PT Result: Comments: See Note; NOTES: [facility] Physical Therapy [facility] [address] [place] [address] Fax REHABILITATION SE RVICES INITIAL EVALUATION MR#: [id number] Acct: [id number] Name: MAURICIO SERRANO Rep #: [id number] : 1945 70 From: Bolivar Newell DPT, OCS, CSCS Referring Dr.: OUT OF TOWN DOCTOR Status: REG RCR Insurance: [employer] Eval Date: Patient's Visit Information MAURICIO SERRANO is a 70 year old F, referred to Physical Therapy by Out of Town Doctor, ERENDIRA HERNANDEZ, with a diagnosis of L Knee TKA. Date of Evaluation: 08/11/15 Physical Therapist: Bolivar Newell - Visit Plan Frequency: 3x /Week Duration: 4-6 Weeks - Subjective Subjective: 2 days ago had L TKA at [place] by Dr. Salazar. Had bone on bone [...] for shoes but takes time. Has a coater brake linings to get socks and pick things up [...] to be FAXED BACK to us at [phone] for Medicare purposes. Please let me know if there are questions or concerns regarding this plan of care. Physic carlo Signature: Date: <Electronically signed by Bolivar Newell DPT, OCS, CSCS> 08/12/15 0642 CC: SARATH HERNANDEZ; Micki shea MD; OUT OF TOWN DOCTOR EBG Signed For Medicare only, by signing this I certify the plan of care. Physicians Signature Date 12-Jul-2015 ELECTROCARDIOGRAM, COMPLETE (ECG) (44338) Comments: sinus rhythm within normal limits Result: [MEASUREMENTS ANALYSIS] Date of Test: 07/12/2015 13:50:06; Heart Rate: 72; KS Interval: 146; QRS: 90; QT Interval: 392; Corrected QT Interval (QTc): 413; P Wave Jay: 47; QRS Wave Jay: 20; T Wave Jay: 51; Blood Pressure: 122/80 [ECG DIAGNOSTIC STATEMENTS] Date of Test: 07/12/2015 13:50:06; Summary: Sinus Rhythm WITHIN NORMAL LIMITS 30-Jun-2015 Abdomen/Pelvis without Cont Result: Comments: See Note; NOTES: [facility] Imaging Services [address] [place] [address] Verdana 4d Abdomen/Pelvis without Cont MR#: [id number] Acct: [id number] Name: MAURICIO SERRANO Rep #: [id number] : 1945 F 69 From: Bella Meade MD PCP: Micki Cruz MD Status: REG CLI Study: Abdomen/Pelvis without Cont Date of Exam: 06/30/15 Exam# [id number] Alexia england Dr: Serena Quiñonez STUDY: CT [...] at 10:49 EST Tel , Service support [phone], CC: Serena Quiñonez; Micki Cruz MD Electronics Instructor: Signed 17-Feb-2015 Abdomen/Pelvis WITH Contrast Result: Comments: See Note; NOTES: [facility] Imaging Services [address] [place] [address] CAT Scan Report MR#: [id number] Acct: [id number] Name: MAURICIO SERRANO Rep #: [id number] : 1945 F 69 From: Gerald Persaud DO PCP: Micki Cruz MD Status: REG CLI Study: Abdomen/Pelvis WITH Contrast Date of Exam: 02/17/15 Exam# [id number] Ordering Dr: Micki Cruz MD ASHOK DY: CT ABDOMEN AND PELVIS WITH CONTRAST [...] all fat-containing umbilical hernia. Electronically Signed: Gerald OvallesDO barrett at 19:10 EDT Tel , Service support [phone], CC: Micki Cruz MD Electronics Instructor: Signed 02-Nov-2014 Chest WITH Contrast Result: Comments: See Note; NOTES: [facility] Imaging Services [address] [facility] [facility] [place] [address] CAT Scan Report MR#: [id number] Acct: [id number] Name: MAURICIO SERRANO Rep #: [id number] : 1945 F 69 From: Michael Noland MD PCP: Micki Cruz MD Status: REG CLI Study: Chest WITH Contrast Date of Exam: 11/02/14 Exam# [id number] Ordering Dr: Serena Quiñonez STUDY: CTA CHEST [...] Michael Noland MD at 15:54 EDT Tel [phone], Service support [phone], CC: Serena Quiñonez; Micki Cruz MD Electronics Instructor: Signed 15-Mar-2014 Toe(s) Min 2 Views Result: Comments: See Note; NOTES: [facility] Imaging Services [address] [place] [address] Radiology Report MR#: [id number] Acct: [id number] Name: MAURICIO SERRANO Rep #: [id number] : 1945 F 68 From: Romaine Tafoya DO PCP: Micki Cruz MD Status: REG CLI Study: Toe(s) Min 2 Views Date of Exam: 03/15/14 Exam# [id number] Ordering Dr: Serena Quiñonez STUDY: X-RAY LEFT [...] Tafoya DO 2 at 16:54 EDT Tel [phone], Service support [phone], RAD/Toe(s) Min 2 Views IMPRESSION: No acute abnormality of the left second toe. Electron ically Signed: Romaine Tafoya DO at 16:54 EDT Tel [phone], Service support [phone], CC: Serena Quiñonez; Micki Cruz MD Electronics Instructor: Signed 15-Feb-2014 Spine Cervical without Contras Result: Comments: See Note; NOTES: [facility] Imaging Services [address] [place] [address] CAT Scan Report MR#: [id number] Acct: [id number] Name: MAURICIO SERRANO Rep #: [id number] : 1945 F 68 From: Michael Noland MD PCP: Micki Cruz MD Status: REG CLI Study: Spine Cervical without Contras Date of Exam: 02/15/14 Exam# [id number] Ordering Dr: Micki Cruz MD STUDY: CT [...] Noland MD at 14:08 E DT Tel [phone], Service support [phone], CC: Micki Cruz MD Electronics Instructor: Signed 11-Feb-2014 Cerv Spine 4 or 5 Views Result: Comments: See Note; NOTES: [facility] Imaging Services [address] [place] [address] Radiology Report MR#: [id number] Acct: [id number] Name: MAURICIO SERRANO Rep #: [id number] : 1945 F 68 From: Julio Charles DO PCP: Micki Cruz MD Status: REG CLI Study: Cerv Spine 4 or 5 Views Date of Exam: 02/11/14 Exam# [id number] Ordering Dr: Serena Quiñonez STUDY: X-RAY - [...] Charles DO at 19 :48 EDT Tel [phone], Service support [phone], CC: Serena Quiñonez; Micki Cruz MD Electronics Instructor: Signed 09-Oct-2013 Knee 4 or More Views Result: Comments: See Note; NOTES: [facility] Imaging Services [address] [place] [address] Radiology Report MR#: [id number] Acct: [id number] Name: MAURICIO SERRANO Rep #: [id number] : 1945 F 68 From: Romaine Tafoya DO PCP: Micki Cruz MD Status: REG CLI Study: Knee 4 or More Views Date of Exam: 10/09/13 Exam# [id number] Ordering Dr: Serena Quiñonez STUDY: X-RAY - [...] Romaine Tafoya DO at 19:01 EDT Tel [phone], Service support [phone], CC: Serena Quiñonez; Micki Cruz MD Electronics Instructor: Signed 03-Sep-2013 Hepatobilliary Imaging Result: Comments: See Note; NOTES: [facility] Imaging Services [address] [place] [address] Nuclear Medicine Report MR#: [id number] Acct: [id number] Name: MAURICIO SERRANO Rep #: [id number] : 1945 F 68 From: Gene Diallo DO PCP: Micki Cruz MD Status: REG CLI Study: Hepatobilliary Imaging Date of Exam: 09/03/13 Exam# [id number] Ordering Dr: Catalina Daly DO CLINICAL: 68-year-old [...] M.D. at 7:07 EST , Service support [phone], Fa x [phone] CLINICAL: 68-year-old female with reported history of [...] CC: Micki Cruz MD; Catalina Daly DO Electronics Instructor: Signed 27-Aug-2013 Gallbladder Result: Comments: See Note; NOTES: [facility] Imaging Services [address] [place] [address] Ultrasound Report MR#: [id number] Acct: [id number] Name: MAURICIO SERRANO Rep #: [id number] : 1945 F 68 From: Michael Noland MD PCP: Micki Cruz MD Status: REG CLI Study: Gallbladder Date of Exam: 08/27/13 Exam# [id number] Ordering Dr: Catalina Daly DO STUDY: AB [...] M.D. at 10:31 EST , Service support [phone], CC: Micki Cruz MD; Catalina Daly DO Electronics Instructor: Signed Family History Unknown Family Member Name [...] kg/m2 Body Surface Area Calculated 2.11 m2 52-Qfn-83466:25 Temperature 97.6 f Comments: Method: Temporal Pulse [...] 0.00 cm Results Date Description Value Details 86-Rgk-518101:28 Metabolic Panel, Comprehensive Comments: Jan 2017; PATIENT NOT FASTINGPERFORMED BY: [facility] Iqxnrr8141 [facility] [id number] ([id number]) ALT (SGPT) 14 [iU]/L (Normal) Range: 0-32 [...] Glucose, Serum 77 mg/dL (Normal) Range: 65-99 15-Tqa-378880:28 CALCIFEDIOL (85834) Comments: Jan 2017; PATIENT NOT FASTINGPERFORMED BY: [facility] HospitalJbenkd8814 [facility] [id number] Vitamin D, 25-Hydroxy 33.0 ng/mL (Normal) Range: 30.0-100.0 Comments: Vitamin D deficiency has been defined by the [place] of[place]icine and an Endocrine Society practice guideline as alevel of serum 25-OH vitamin D less than 20 ng/mL (1,2).The Endocrine Society went on to further define vitamin Dinsufficiency as a level between 21 and 29 ng/mL (2).1. IOM ([place] of Medicine). 2010. Dietary reference intakes for calcium and D. [place]: The National Academies Press.2. Miki MF, Jamie LUND, Cata VEGA, et al. Evaluation, treatment, and prevention of vitamin D deficiency: an Endocrine Society clinical practice guideline. JCEM. 2010; 96(7):1911-30. 30-Bfj-842552:21 C-REACTIVE PROTEIN (88769) Comments: PATIENT NOT FASTINGPERFORMED BY: [facility] Mpceic3659 [facility] [id number] C-Reactive Protein, Quant 6.7 mg/L (Abnormal) Range: 0.0-4.9 :21 SED RATE ERYTHROCYTE (99712) Comments: PATIENT NOT FASTINGPERFORMED BY: [facility] HospitalKinsra6929 [facility] [id number] Sedimentation Rate-Westergren 5 mm/h (Normal) Range: 0-40 87-Nso-399728:21 METABOLIC PANEL, COMPREHENSIVE Comments: PATIENT NOT FASTINGPERFORMED BY: [facility] Qjvqch5480 [facility] [id number] (53959) ALT (SGPT) 12 [iU]/L (Normal) Range: 0-32 [...] Glucose, Serum 69 mg/dL (Normal) Range: 65-99 63-Ifv-584469:21 CBC, PLATELETS & AUT DIFF Comments: PATIENT NOT FASTINGPERFORMED BY: [facility]6370 [facility] [id number] (55694) Immature Grans (Abs) 0.0 {x10E3/uL} (Normal) Range: [...] (Normal) Range: 3.4-10.8 02-Nov-20169:08 T4, FREE (THYROXINE) (48072) Comments: PATIENT NOT FASTINGPERFORMED BY: [facility]6370 [facility] [id number] T4,Free(Direct) 1.31 ng/dL (Normal) Range: 0.82-1.77 :08 T3, FREE (TRIDOTHYRONINE) (89803) Comments: PATIENT NOT FASTINGPERFORMED BY: [facility]6370 [facility] [id number] Triiodothyronine,Free,Serum 2.2 pg/mL (Normal) Range: 2.0-4.4 :08 TSH (72120) Comments: PATIENT NOT FASTINGPERFORMED BY: [facility]6370 [facility] [id number] TSH 3.520 {uIU/mL} (Normal) Range: 0.450-4.500 08-Uws-840500:28 Metabolic Panel, Comprehensive Comments: PATIENT NOT FASTINGPERFORMED BY: [facility]6370 [facility] [id number] (55507) ALT (SGPT) 15 [iU]/L (Normal) Range: 0-32 [...] Glucose, Serum 93 mg/dL (Normal) Range: 65-99 95-Ozr-724799:28 CBC, Platelets & Auto Diff Comments: PATIENT NOT FASTINGPERFORMED BY: [facility]70 [facility] [id number] (34371) Immature Grans (Abs) 0.0 {x10E3/uL} (Normal) Range: [...] 3.77-5.28 WBC 6.8 {x10E3/uL} (Normal) Range: 3.4-10.8 80-Frw-894705:28 TSH (65254) Comments: PATIENT NOT FASTINGPERFORMED BY: [facility] Nvnlmb1978 [facility] [id number] TSH 0.034 {uIU/mL} (Abnormal) Range: 0.450-4.500 :40 CBC W/Diff, Automated Comments: [facility] [address] [place], [address] Absolute Lymph 2.31 {X10_3/ul} (Normal) Range: 0.83-4.51 [...] 4.2-5.4 WBC 8.7 K/mm3 (Normal) Range: 4.4-11.0 40-Yew-100775:40 Comprehensive Metabolic Profil Comments: [facility] [address] [place], [place], [address] GAP 7 (Normal) Range: 5-15 CO2 29.0 [...] 7-18 GLU 106 mg/dL (Normal) Range: 70-110 53-Zgw-096937:07 URINE BECKY CULTURE-IDENTIFICATN Comments: PATIENT NOT FASTINGPERFORMED BY: [facility] Vukzmq3384 [facility] [id number] ([id number]) Result 1 CNSNSS (Abnormal) Comments: Coagulase negative [...] S Urine Final report Culture,Comprehens (Abnormal) svetlana 99-Alb-994501:07 Metabolic Panel, Comprehensive Comments: PATIENT NOT FASTINGPERFORMED BY: [facility]6370 [facility] [id number] (15683) ALT (SGPT) 14 [iU]/L (Normal) Range: 0-32 [...] Glucose, Serum 76 mg/dL (Normal) Range: 65-99 13-Vli-713002:07 CBC, Platelets & Auto Comments: PATIENT NOT FASTINGPERFORMED BY: [facility]6370 [facility] [id number] Information: [id number], 385976 Diff (13451) Immature Grans (Abs) 0.0 {x10E3/uL} (Normal) Range: [...] 3.77-5.28 WBC 8.1 {x10E3/uL} (Normal) Range: 3.4-10.8 40-Byo-017904:07 PT (Prothrobim Time) (12286) Comments: PATIENT NOT FASTINGPERFORMED BY: [facility]6370 [facility] [id number] Prothrombin Time 10.4 {sec} (Normal) Range: 9.1-12.0 INR 1.0 (Normal) Range: 0.8-1.2 Comments: Reference interval is for non-anticoagulated patients. . Suggested INR therapeutic range for Vitamin K anta gonist therapy: Standard Dose (moderate intensity therapeutic range): 2.0 - 3.0 Higher intensity therapeutic range 2.5 - 3.5 31-Wek-82112:53 Urinalysis, Office (66515) UA - LEUKOCYTE ESTERASE Small (Normal) UA - NITRITE Negative (Normal) URINE UROBILINGN IVAN TIMED Normal mg/dL (Normal) UA - PROTEIN Negative mg/dL (Normal) UA - PH 5.0 (Normal) Comments: 5.5 UA - BLOOD Non Hemolyzed Trace (Normal) UA - SPECIFIC GRAVITY 1.005 (Normal) UA - KETONES Negative mg/dL (Normal) UA - BILIRUBIN Negative (Normal) UA - GLUCOSE Negative (Normal) 67-Buf-313648:17 Urinalysis, Office (74552) UA - LEUKOCYTE ESTERASE Large (Normal) UA - NITRITE Negative (Normal) URINE UROBILINGN IVAN TIMED Normal mg/dL (Normal) UA - PROTEIN 100 mg/dL (Normal) UA - PH 6 (Abnormal) UA - BLOOD Hemolyzed Large (Normal) UA - SPECIFIC GRAVITY 1.025 (Normal) UA - KETONES Negative mg/dL (Normal) UA - BILIRUBIN Negative (Normal) UA - GLUCOSE Negative (Normal) 31-May-2015 EGD ([facility] SITE) See Note (Normal) Comments: [facility] [address] [place], [address] 12:32 Comments: Patient: MAURICIO SERRANO : 1945 (69/F) Acct Num: [id number] Phys: Eugenio Laguna Unit Num: [id number] Loc: LABSPEC Specimen: [id number] Received: 05/31/15 - 1610 Spec Type: EGD BIOPSY TISSUES TISSUES: COMMENT The results of immunohistochemistry for Helicobacter pylori will be reported separately ([id number]). Alcian blue/PAS stain with matched control was [...] one cassette. / AM: 06/01/15 TC:3 CPT: 25198, 01393 HEADER OPERATION: EGD w ith biopsy PRE-OP [...] of intestinal metaplasia. AM: 06/02/15 Signed Olvin Chelsey 06/02/15 <signature on file> 31-May-2015 IMMUNOHISTOCHEMISTRY See Note (Normal) Comments: [address], [id number] 0:00 Comments: Patient: MAURICIO SERRANO : 1945 (69/F) Acct Num: [id number] Phys: JaseEugenio Unit Num: [id number] Loc: LABSPEC Specimen: [id number] Received: 06/02/15 - 1157 Spec Type : IMMUNO TISSUES TISSUES: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 ([id number])By: Serena Quiñonez CNP, CNP, Mary E DEXA SCAN AXIAL SKELETON On: 02-Nov-2016 Intent ([id number])By: Serena Quiñonez CNP, CNP, Mary E Radiology - ChestBy: Olamide MARTINEZ, On: 17-Aug-2016 Intent Serena Leblanc CNP Comments: Doretha Quiñonez Solu -Medrol Injection, 125 mg On: 17-Aug-2016 Intent ([id number])By: Serena Quiñonez CNP, CNP, Mary E Solu -Medrol Injection, 125 mg On: 17-Aug-2016 Intent ([id number])By: Serena Quiñonez CNP Comments: Lot:[id number]:11/2018Dose:125mgRoute:im Site:r hipGiven By:ALEN signed Serena Quiñonez CNP Aerosol Treatment ([id number])By: On: 17-Aug-2016 Intent Serena Quiñonez CNP, CNP, Mary E MAMMOGRAM, SCREENING, BOTH BREAST On: 13-Jul-2016 Intent ([id number])By: Serena Quiñonez CNP, CNP, Mary E DEXA SCAN AXIAL SKELETON On: 13-Jul-2016 Intent ([id number])By: Serena Quiñonez CNP, CNP, Mary E CT [...] Quiñonez CNP On: 02-Nov-2014 Intent E Serena Quiñnoez CNP EKG ([id number])By: Serena Quiñonez CNP On: 02-Nov-2014 Intent Serena Quiñonez CNP Comments: sinus rhythm similar to 09-28-2011 Radiology - Toe(s) - LeftBy: On: 15-Mar-2014 Intent Olamide MARTINEZ BrenYonathan Quiñonez CNP Bren CT - NeckBy: Serena Quiñonez CNP On: 15-Feb-2014 Intent Olamide MARTINEZ Bren Comments: cervical spine CT - NeckBy: Micki Cruz MD On: 15-Feb-2014 Intent Comments: STAT STAT STAT STATCALL WET READATTN TO ODONTOID Radiology - Cervical SpineBy: On: 11-Feb-2014 Intent Olamide MARTINEZ BrenYonathan Quiñonez CNP Serena Comments: send resuts to Kyle Quiñonez and Dr. Coughlin (pain specialist) E Venous Doppler - RightBy: Jonathana On: 09-Oct-2013 Intent MICHELLE BrenYonathan Quiñonez CNP Bren Radiology - Knee - RightBy: Ciesa On: 09-Oct-2013 Intent MICHELLE BrenYonathan Quiñonez CNP Bren Nuclear Medicine - HIDA w/CPKBy: On: 28-Aug-2013 Intent Catalina Daly DO Ultrasound - GallbladderBy: On: 26-Aug-2013 Intent Catalina Daly DO Eprescribed prescriptions On: 26-Aug-2013 Intent ([id number])By: Catalina Daly DO Eprshanacribed prescriptions On: 06-Aug-2013 Intent ([id number])By: Micki Cruz MD Aerosol Treatment ([id number])By: On: 29-Sep-2012 Intent Serena Quiñonez CNP, CNP Bren Toradol Injection, 30 mg On: 30-Apr-2012 Intent ([id number])By: Serena Quiñonez CNP, CNP, Mary E ELECTROCARDIOGRAM, COMPLETE (ECG) On: 28-Sep-2011 Intent ([id number])By: Serena Quiñonez CNP Comments: sinus rhythm Serena Quiñonez CNP Bio Z ([id number])By: Serena Quiñonez CNP On: 28-Sep-2011 Intent E Serena Quiñonez CNP Comments: with in normal PHYSICAL THERAPY EVALUATION On: 02-Jan-2011 Intent ([id number])By: Serena Quiñonez CNP, CNP, Mary E MRI - Knee(s) - LeftBy: Ciesa On: 02-Jan-2011 Intent Serena MARTINEZ CNP, Mary E Nuclear Stress Test/Stress On: 21-Aug-2010 Intent SPECT/AdenosineBy: Serena Quiñonez CNP, CNP, Mary E EKG ([id number])By: Olamide MARTINEZSerena On: 21-Aug-2010 Intent Serena Quiñonez CNP PHYSICAL THERAPY EVALUATION On: 08-Aug-2010 Intent ([id number])By: BrandiSerena dumont CNP, CNP, Mary E Radiology - Knee - LeftBy: Cishanaa On: 08-Aug-2010 Intent Serena MARTINEZ CNP, Mary E Radiology - Knee - Left - Weight On: 08-Aug-2010 Intent BearingBy: Olamide Serena MARTINEZ CNP, Mary E CT - Chest (IV Contrast On: 06-Dec-2009 Intent Needed)By: Olamide MARTINEZ Serena Mcmanus Comments: stat Olamide Serena MARTINEZ Doppler Ultrasound OtherBy: Olamide On: 05-Dec-2009 Intent Serena MARTINEZ CNP, Mary E Comments: Rt knee and lower extremity with history of PE Please do today Aerosol Treatment ([id number])By: On: 05-Dec-2009 Intent Serena Quiñonez CNP, CNP, Mary E Pulse Oximetry ([id number])By: Olamide On: 05-Dec-2009 Intent Serena MARTINEZ CNP, Mary E CT - Brain/HeadBy: Olamide MARTINEZ, On: 25-Aug-2009 Intent Serena Leblanc CNP DESTRUCT B9 LESION, 1-14 On: 20-Mar-2009 Intent ([id number])By: Micki Cruz MD Doppler Ultrasound OtherBy: Olamide On: 18-Oct-2008 Intent Serena MARTINEZ CNP, Mary E CT - ChestBy: Micki Cruz MD On: 22-Mar-2008 Intent Comments: copyy of both ct to Dr. yeyo jules in [place] and Dr. meehan CT - Abdomen & PelvisBy: Nancy On: 22-Mar-2008 Intent Micki GIPSON Pulse Oximetry ([id number])By: On: 22-Mar-2008 Intent RAMA Webster Pulse Oximetry ([id number])By: On: 16-Mar-2008 Intent RAMA Webster Echo CompleteBy: Micki Cruz MD On: 11-Mar-2008 Intent Kyle Vancoymcin 500mg/premixedBy: On: 11-Mar-2008 Intent Micki Cruz MD Pulse Oximetry ([id number])By: On: 02-Mar-2008 Intent RAMA Webster Pulse Oximetry ([id number])By: Olamide On: 26-Feb-2008 Intent Serena MARTINEZ CNP, Mary E CT - Chest (IV Contrast On: 26-Feb-2008 Intent Needed)By: Serena Quiñonez CNP Comments: PE protocolstatSTAT CT shows PE to be admitted Serena Quiñonez CNP Solu -Medrol Injection, 125 mg On: 26-Feb-2008 Intent ([id number])By: Serena Quiñonez CNP Comments: waiver signedAmt: 2mlLot: [id number]: 09/2010Route: IMSite: right hipTolerated: wellGiven By: RADAMES Ta CNP, Mary E Inhaler Demonstration ([id number])By: On: 26-Feb-2008 Intent Serena Quiñonez CNP, CNP, Mary E Aerosol Treatment ([id number])By: On: 26-Feb-2008 Intent Serena Quiñonez CNP, CNP Serena Comments: done E Venous Doppler - RightBy: Nancy On: 27-Nov-2007 Intent Micki GIPSON Comments: leg 2 weeks DXA, BONE DENSITY, AXIAL SKELETON On: 06-Nov-2007 Intent ([id number])By: Micki Cruz MD Comments: estrogen deficient MAMMOGRAM, SCREENING, BOTH On: 06-Nov-2007 Intent BREASTS ([id number])By: Micki Cruz MD Pulse Oximetry ([id number])By: On: 06-Nov-2007 Intent RAMA Webster Pulse Oximetry ([id number])By: Alex On: 24-Sep-2007 Intent Dana Comments: 98% Aerosol Treatment ([id number])By: On: 05-Aug-2007 Intent Serena Quiñonez CNP, CNP, Mary E Spirometry ([id number])By: Nancy On: 27-May-[address] - Brain/HeadBy: Nancy GIPSON, On: 22-Mar-2006 Intent Micki Wright Planned Medications INJECTION, KETOROLAC TROMETHAMINE, PER 15 MG Ordered: 30-Apr-2012 Pending Cishanaa Serena MARTINEZa AGENCY RECRUITER, Bren INJECTION, METHYLPREDNISOLONE SODIUM SUCCINATE, UP TO 125 MG Ordered: 17-Aug-2016 Pending Ciesa AGENCY RECRUITER, Bren Ciesa AGENCY RECRUITER, Bren INJECTION, METHYLPREDNISOLONE SODIUM SUCCINATE, UP TO 125 MG Ordered: 17-Aug-2016 Pending Ciesa AGENCY RECRUITER, Bren Ciesa AGENCY RECRUITER, Bren Instructions Name Dates Details Nonsmoker : How [...] TSH : DISCONTINUED - T4, FREE (THYROXINE) ([id number]) Indication: Abnormal TSH Abnormal TSH : DISCONTINUED - T3, FREE (TRIDOTHYRONINE) ([id number]) Indication: Abnormal TSH Abnormal TSH : DISCONTINUED - TSH (THYROID STIMULATING HORMONE) ([id number]) Indication: Abnormal TSH Encounter for screening for [...] NOS : DISCONTINUED - HEPATIC FUNCTION PANEL ([id number]) Indication: FUNGUS, NOS Hypertension : DISCONTINUED - TSH ([id number]) Indication: Hypertension GERD (gastroesophageal reflux disease) : [...] recently getting worse-full End: 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 He is not doing well and [...] For Left Knee replacement Dr. Hernandez in [place] Aug 09, 2015. When pt had Rt [...] mcmanus has been getting her vicoden from [employer] - so encoruaged her to discuss with [...] (obesity ). Note for Follow up for rn document improvement avinash medical issues: occas crawling feeling on [...] [facility] End: 15-Mar-2006 11:02 Payers [facility]/Vonnie Serrano; michelle guarantor
--- OUTSIDE RECORDS SUMMARY | 2018-07-24 21:28 | XMS RPT_ITS ---
:1945 Author Organization OHIP Care Team Providers Name Role Phone Branditim Serena Attending Unavailable Serena Chau Referring Unavailable Serena Chau Primary Care Unavailable MICHAEL DUNCAN Attending Unavailable SERENA CHAU Referring Unavailable IMCA Referring Unavailable IMCA Primary Care Unavailable BOLOGNAMICHAEL Attending Unavailable IMCA Primary Care Unavailable BOLOGNAMICHAEL Referring Unavailable JUAN MANUEL LAI Attending Unavailable PROBLEMS PROBLEMS DATE TYPE CONDITION / CODE ATTENDING STATUS SOURCE 10/18/2017 Active Frequency of [facility], Active [facility] micturition / MICHAEL A Other [place] R35.0(ICD-10) Repository 10/18/2017 Active Retention of [facility], Active [facility] urine, MICHAEL A Other [place] unspecified / Repository R33.9(ICD-10) 10/18/2017 Active Cystocele, [facility], Active [facility] midline / MICHAEL A Other [place] N81.11(ICD-10) Repository 10/18/2017 Active [facility] prolapse, MICHAEL A Other [place] unspecified / Repository N81.9(ICD-10) 10/18/2017 Admitting Unknown / [facility], Active [facility] diagnosis UNK(Unknown) [facility] Repository PROCEDURES PROCEDURES No Procedure Records FoundRESULTS RESULTS SCREENING MAMM (CAD), Observed: 05/29/2018 Status: F Source: JOSELYN BILAT 3:19 PM [facility] REPOSITORY [facility] Imaging Services [address] [place] [address] SCREENING MAMM (CAD), BILAT MR#: [id number] Acct: [id number] Name: MAURICIO KOROMA Rep #: [id number] : 1945 F 72 From: Michael Dailey MD PCP: Serena Chau NP Status: REG CLI Study: SCREENING MAMM (CAD), BILAT Date of Exam: 05/29/18 Exam# [id number] Ordering Dr: Serena Chau BINDERY TECHNICIAN-C MAMMOGRAPHY - BILATERAL SCREENING REASON FOR EXAM: Female, 72 years old. Routine annual screening examination. PERTINENT HISTORY: Sisters with breast cancer. TECHNIQUE: Digital bilateral breast erinn (3D mammographic acquisition) in the CC and MLO projections. 2-D mediolateral oblique (MLO) and craniocaudad (CC) views of both breasts were obtained. CAD: Full Field Digital Mammography with Computer Added Detection was performed. COMPARISON: Comparison is made with prior study dated November 13, 2016. FINDINGS: Breast Composition: There are scattered areas of fibroglandular density. There are no dominant masses or suspicious calcifications. No other significant abnormalities are identified. There has been no significant change since the prior study. BI/SCREENING MAMM (CAD), BILAT IMPRESSION: Stable bilateral screening mammogram. Yearly follow-up mammogram recommended. (A) ASSESSMENT CATEGORY: BIRADS Category 2: Benign. A letter regarding these results will be sent to the patient by the facility within 30 days. Approximately 10% of breast cancers are not detected by mammography. A normal mammogram should not delay biopsy of a clinically suspicious abnormality. [id number] Electronically Signed: Michael Dailey MD at 9:00 EST Tel [phone], Service support , CC: Serena Chau NP Corner Block Cutter: Signed CNPN Observed: 10/22/2017 Status: COMPLETED Source: [facility] 12:00 AM CLINIC OTHER CAMPUS REPOSITORY Telephone (UROLAE) MEGAN KOROMA ([id number]) 1945 F Date Time Provider Department 10/22/17 MICHAEL DUNCAN During your visit today, we recorded the following information about you: Divya Britt 10/22/2017 11:54 AM Signed Patient called stating the new medicine you started her on last Saturday has been working really well. Her bladder is working better then it has in years. She is wondering if you still want her to do the urodynamics testing? Please advise, thank you Divya Duncan MD 10/22/2017 12:50 PM Signed No just have her make a follow up with me or Juan Manuel. Divya Britt 10/22/2017 1:26 PM Signed Patient is aware, UDS cancelled. She will call and schedule later. Divya Britt Allergies As of Date: 10/22/2017 Noted Allergy Reaction CELEBREX (CELECOXIB) 10/18/2017 16 - Unknown MELOXICAM 10/18/2017 16 - Unknown PENICILLIN 10/18/2017 2 - Rash SKELAXIN (METAXALONE) 10/18/2017 16 - Unknown SULFA (SULFONAMIDE ANTIBIOTICS) 10/18/2017 2 - Rash Date Reviewed: 10/18/2017 Reviewed by: Michael Duncan - Fully Assessed Reason for Visit: medicine question [Other] Prescriptions as of 10/22/2017 Sig: SOLIFENACIN 10 MG TABLET Take 1 tablet by mouth once d* LEVOTHYROXINE 112 MCG TABLET TOLTERODINE ER 2 MG CAPSULE,E* TYLENOL ARTHRITIS ORAL Take by mouth. [facility] ([facility]ULK) [facility] Problem List As Of Date: 10/22/2017 (None) Encounter Status:Closed by MICHAEL DUNCAN MD on 10/22/17 CNOV Observed: 10/18/2017 Status: COMPLETED Source: [facility] 9:15 AM CLINIC OTHER CAMPUS REPOSITORY Office Visit (TEO) MEGAN KOROMA ([id number]) 1945 F Date Time Provider Department 10/18/17 9:15 AM MICHAEL DUNCAN During your visit today, we recorded the following information about you: Blood pressure Weight Height 124/84 90.3 kg 1.6 m Michael Duncan MD 10/18/2017 9:59 AM Signed NEW PATIENT HISTORY AND PHYSICAL EXAM HISTORY OF PRESENT ILLNESS: Megan Koroma is a 72 year old female who presents as a new patient. She presents with prolapse. Worsening recently, she is caring for her . Wearing 4- pads per day. Will leak with movement and water running. Detrol is no longer helping. . Previous hysterectomy 4 vaginal deliv. 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 Her postvoid residual was 200 cc. We discussed conservative and surgical treatment options. We will arrange for a pessary fitting. I did change her anticholinergic to Vesicare. REVIEW OF SYSTEMS: GENERAL:Fatigue ALLERGIC/IMMUNOLOGIC: drug allergies HEENT:Eyes Positive for worsening eyesight RESPIRATORY: Negative for cough, hemoptysis, wheezing, COPD, dyspnea or shortness of breath CARDIOVASCULAR: ankle swelling and chest pain with stress. GASTROINTESTINAL: No nausea, vomiting, or diarrhea GENITOURINARY: See HPI MUSCULOSKELETAL: joint pain NEUROLOGIC:Negative for focal numbness or weakness, headaches and dizziness or syncope. SKIN:Negative for lesions, rash, and itching LAB Glucose, Urine (mg/dL) Date Value 10/18/2017 neg Bilirubin, Urine (no units) Date Value 10/18/2017 neg Ketones, Urine (no units) Date Value 10/18/2017 neg Specific [place], Ur (no units) Date Value 10/18/2017 1.015 Hemoglobin/Blood,Ur (no units) Date Value 10/18/2017 trace-intact pH, Urine (no units) Date Value 10/18/2017 6.0 Protein, Urine (mg/dL) Date Value 10/18/2017 neg Nitrites (no units) Date Value 10/18/2017 neg MEDICATIONS: solifenacin (VESICARE) 10 mg tablet Take 1 tablet by mouth once daily. HISTORIES No past medical history on file. No family history on file. No past surgical history on file. Social History Substance Use Topics - Smoking status: Not on file - Smokeless tobacco: Not on file - Alcohol use Not on file Physical Exam BP 124/84 Ht 160 cm (5' 3ANDquot;) Wt 90.3 kg (199 lb) BMI 35.25 kg/m2 PHYSICAL EXAM: FEMALE Vital signs: BP 124/84 Ht 160 cm (5' 3ANDquot;) Wt 90.3 kg (199 lb) BMI 35.25 kg/m2 General Appearance: Normal, No acute distress, well nourished Psych:No signs of depression, anxiety, or agitation. Neuro: Gait normal: Yes SKIN/LYMPH: No rashes noted, no lesions. Respiratory Effort: Normal, no labored breathing Cardiovascular:No extremity swelling varices, edema, pallor, or erythema ABDOMEN: - Liver/spleen: No abnormalities palpable - Hernia: None - Mass: None - Pain on palpation: None - Bladder/Kidney: No abnormalities palpable Extremities:Extremities normal. No deformities, edema, clubbing or skin discoloration. GENITALIA FEMALE EXAM: External Genitalia: Normal, no atrophy, no rash Urethral Meatus: Normal, no prolapse or caruncle Urethra: No mass, no tenderness and no diverticulum. Urethral angle: ANDgt;30 degrees Stress incontinence on exam: no Bladder:Cystocele 1cm beyond the hymen. Vagina: Loss of apical support 3-4 cm above the hymen Adnexa: No palpable mass; no cysts; no tenderness Anus/Perineum: Deferred Levator tenderness: no Post Void Residual via Straight Cath: 200 cc ASSESSMENT/PLAN: Urinary frequency (primary encounter diagnosis) Retention of urine Midline cystocele Vaginal vault prolapse No Follow-up on file. Referring Provider: SERENA CHAU [[id number]] Allergies As of Date: 10/18/2017 Noted Allergy Reaction CELEBREX (CELECOXIB) 10/18/2017 16 - Unknown MELOXICAM 10/18/2017 16 - Unknown PENICILLIN 10/18/2017 2 - Rash SKELAXIN (METAXALONE) 10/18/2017 16 - Unknown SULFA (SULFONAMIDE ANTIBIOTICS) 10/18/2017 2 - Rash Date Reviewed: 10/18/2017 Reviewed by: Michael Duncan - Fully Assessed Reason for Visit: New Patient [172] Primary Visit Diagnosis:Urinary frequency [R35.0] Other Visit Diagnoses:Retention of urine [R33.9] Midline cystocele [N81.11] Vaginal vault prolapse [N81.9] Order(s):UA DIP B/O [[id number]] Order #: [id number] solifenacin (VESICARE) 10 mg tabletTake 1 tablet by mouth once daily.Disp: 30 tabletRfl: 11 Prescriptions as of 10/18/2017 Sig: TYLENOL ARTHRITIS ORAL Take by mouth. TURMERIC (BULK) MISC SOLIFENACIN 10 MG TABLET Take 1 tablet by mouth once d* LEVOTHYROXINE 112 MCG TABLET TOLTERODINE ER 2 MG CAPSULE,E* Medication notes this encounter LEVOTHYROXINE 112 MCG TABLET >> Rosa Maria Derluis TUCKER 10/18/2017 11:48 AM >> ROSA MARIA STEVENS CMA SatOct 18, 2017 11:48 AM Received from: External Pharmacy TOLTERODINE ER 2 MG CAPSULE,EXTENDED RELEASE 24 HR >> Rosa Maria Stevens CMA 10/18/2017 11:48 AM >> ROSA MARIA STEVENS CMA SatOct 18, 2017 11:48 AM Received from: External Pharmacy Problem List As Of Date: 10/18/2017 (None) Prescriptions ordered this encounter Disp Refills Start End SOLIFENACIN 10 MG TABLET 30 t* 11 10/18/2017 11/17/2017 Route: ORAL Sig: Take 1 tablet by mouth once daily. Follow-up and Disposition History Recorded Letter Text Encounter Status:Closed by MICHAEL DUNCAN MD on 10/18/17 PROGRESS Observed: 10/18/2017 Status: COMPLETED Source: [facility] 9:09 AM CLINIC OTHER CAMPUS REPOSITORY O ID: [id number] Author: Michael Duncan Service: (none) Author Type: Physician Type: Progress Notes Filed: 10/18/2017 9:59 AM Note Text: NEW PATIENT HISTORY AND PHYSICAL EXAM HISTORY OF PRESENT ILLNESS: Megan Koroma is a 72 year old female who presents as a new patient. She presents with prolapse. Worsening recently, she is caring for her . Wearing 4- pads per day. Will leak with movement and water running. Detrol is no longer helping. . Previous hysterectomy 4 vaginal deliv. 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 Her postvoid residual was 200 cc. We discussed conservative and surgical treatment options. We will arrange for a pessary fitting. I did change her anticholinergic to Vesicare. REVIEW OF SYSTEMS: GENERAL:Fatigue ALLERGIC/IMMUNOLOGIC: drug allergies HEENT:Eyes Positive for worsening eyesight RESPIRATORY: Negative for cough, hemoptysis, wheezing, COPD, dyspnea or shortness of breath CARDIOVASCULAR: ankle swelling and chest pain with stress. GASTROINTESTINAL: No nausea, vomiting, or diarrhea GENITOURINARY: See HPI MUSCULOSKELETAL: joint pain NEUROLOGIC:Negative for focal numbness or weakness, headaches and dizziness or syncope. SKIN:Negative for lesions, rash, and itching LAB Glucose, Urine (mg/dL) Date Value 10/18/2017 neg Bilirubin, Urine (no units) Date Value 10/18/2017 neg Ketones, Urine (no units) Date Value 10/18/2017 neg Specific [place], Ur (no units) Date Value 10/18/2017 1.015 Hemoglobin/Blood,Ur (no units) Date Value 10/18/2017 trace-intact pH, Urine (no units) Date Value 10/18/2017 6.0 Protein, Urine (mg/dL) Date Value 10/18/2017 neg Nitrites (no units) Date Value 10/18/2017 neg MEDICATIONS: solifenacin (VESICARE) 10 mg tablet Take 1 tablet by mouth once daily. HISTORIES No past medical history on file. No family history on file. No past surgical history on file. Social History Substance Use Topics - Smoking status: Not on file - Smokeless tobacco: Not on file - Alcohol use Not on file Physical Exam BP 124/84 Ht 160 cm (5' 3) Wt 90.3 kg (199 lb) BMI 35.25 kg/m2 PHYSICAL EXAM: FEMALE Vital signs: BP 124/84 Ht 160 cm (5' 3) Wt 90.3 kg (199 lb) BMI 35.25 kg/m2 General Appearance: Normal, No acute distress, well nourished Psych:No signs of depression, anxiety, or agitation. Neuro: Gait normal: Yes SKIN/LYMPH: No rashes noted, no lesions. Respiratory Effort: Normal, no labored breathing Cardiovascular:No extremity swelling varices, edema, pallor, or erythema ABDOMEN: - Liver/spleen: No abnormalities palpable - Hernia: None - Mass: None - Pain on palpation: None - Bladder/Kidney: No abnormalities palpable Extremities:Extremities normal. No deformities, edema, clubbing or skin discoloration. GENITALIA FEMALE EXAM: External Genitalia: Normal, no atrophy, no rash Urethral Meatus: Normal, no prolapse or caruncle Urethra: No mass, no tenderness and no diverticulum. Urethral angle: >30 degrees Stress incontinence on exam: no Bladder:Cystocele 1cm beyond the hymen. Vagina: Loss of apical support 3-4 cm above the hymen Adnexa: No palpable mass; no cysts; no tenderness Anus/Perineum: Deferred Levator tenderness: no Post Void Residual via Straight Cath: 200 cc ASSESSMENT/PLAN: Urinary frequency (primary encounter diagnosis) Retention of urine Midline cystocele Vaginal vault prolapse No Follow-up on file. ALLERGIES ALLERGIES DATE TYPE / CODE NAME / CODE REACTION SEVERITY SOURCE 10/18/2017 DRUG CELECOXIB UNKNOWN [facility] INGREDI/419 Other [place] 112743(SNOM Repository ED CT) 10/18/2017 DRUG MELOXICAM UNKNOWN [facility] INGREDI/419 Other [place] 333715(SNOM Repository ED CT) 10/18/2017 DRUG PENICILLIN RASH [facility] INGREDI/419 Other [place] 732743(SNOM Repository ED CT) 10/18/2017 DRUG METAXALONE UNKNOWN [facility] INGREDI/419 Other [place] 248512(SNOM Repository ED CT) 10/18/2017 Drug SULFA RASH [facility] Class/95409 (SULFONAMIDE Other [place] 1003(SNOMED ANTIBIOTICS) Repository CT) 08/14/2015 Drug Penicillins/F0010 Hives Unknown [place] Allergy/416 97939(RXNORM) Community 986095([facility] ED CT) Repository 08/14/2015 Drug Sulfa Unknown Unknown [place] Allergy/416 (Sulfonamide Community 206313(SN Antibiotics)/F001 Hospital ED CT) 932651(RXNORM) Repository 08/14/2015 Drug meloxicam/[id number] Other Unknown [place] Allergy/416 272(RXNORM) Community 450801([facility] ED CT) Repository NG/72960611 CELECOXIB [facility] 6(SNOMED [facility]) Repository NG/[id number] MELOXICAM [facility] 6(SNOMED [facility]) Repository NG/23942814 PENICILLIN [facility] 6(SNOMED [facility] CT) Repository NG/31368832 METAXALONE [facility] 6(SNOMED [facility] CT) Repository NG/85256247 SULFA [facility] 6(SNOMED (SULFONAMIDE Health System CT) ANTIBIOTICS) Repository ENCOUNTERS ENCOUNTERS ADMIT/DISCHARGE ACCOUNT NUMBER ADMITTING ENCOUNTER LOCATION SOURCE CLASS 05/29/2018 [id number] [facility] ding:OPBI Repository 10/30/2017 [id number] Ambulatory [facility] MEDICAL Repository [facility]ACHERIEBuildi ng:URAE 10/18/2017/10/19/19 [id number] Ambulatory [address] Other [place] Repository 10/18/2017/10/19/19 [id number] Ambulatory [address] MEDICAL Repository [employer]ACHERIEBuildi ng:URGR PAYERS PAYERS ENCOUNTER GUARANTOR PAYER SUBSCRIBER SOURCE 05/29/2018 MAURICIO Herron Primary Insurance:[facility] MAURICIO Alves [id number] [place] [facility] OVERMIERDOB: [facility] Number: [id number], [place] [id number] Repository [address]Try: (115) Date:[id number] [phone] () [place], [place] [address]NT: 05/29/2018 Secondary NOT GIVENUNK Joselyn Insurance:SELF PAY [facility]: Effective Repository Date:2018-05-26 10/30/2017 MEGAN D Primary Insurance:[facility] MEGAN D [facility] OVERMIERDOB: GROUP MEDICARE OVERMIERDOB: Health System ADVANTAGE [facility] [id number] Repository [place] Number: [place], [place] [id number] [id number]: (330) Date: () 10/18/2017 MEGAN D Primary Insurance:[facility] MEGAN D [facility] OVERMIERDOB: GROUP MEDICARE OVERMIERDOB: Health System ADVANTAGE [facility] [id number] Repository [place] Number: [place], [place] [id number] [id number]: (330) Date: ()
== END ==
PROVIDERS: Family Provider Nurse Practitioner; PCP Nurse Practitioner; Referring Provider Nurse Practitioner; Visit Provider Nurse Practitioner
DX: Z12.31 Encounter for screening mammogram for malignant neoplasm of breast (principal)
CPT/HCPCS: 77063; 77067

== ENCOUNTER → 2018-08-01 07:46 | Outpatient (CLI) | payer MEDICARE, SELFPAY ==
--- NOTE | 2018-08-01 07:50 | ECHOD_ITS ---
Reason For Study: CHEST PAIN Procedure This was a 2D Doppler, Color Flow transthoracic echocardiogram. Exam performed in department. Left Ventricle Normal LV size. The estimated ejection fraction is 55 %. Stage 1 diastolic dysfunction. No regional wall motion abnormalities noted. Right Ventricle Normal RV size. Normal systolic function. Atria Normal left atrium. Normal right atrium. Mitral Valve Normal mitral valve. Tricuspid Valve Normal tricuspid valve. Mild tricuspid valve insufficiency. Pulmonary artery systolic pressure is 20 mmHg. Aortic Valve Normal aortic valve. Trisinus/trileaflet aortic valve. Pulmonic Valve Normal pulmonic valve. Great Vessels Normal aortic root. The pulmonary artery is normal size. Normal inferior vena cava. Pericardium/Pleural No pericardial effusion. MMode/2D Measurements & Calculations LVIDd: 4.7 cm IVSd: 0.77 cm Ao root diam: 3.1 cm LVIDs: 2.8 cm LVPWd: 0.98 cm RVDd: 3.3 cm FS: 40.9 % LAV(MOD-bp): 78.8 ml LA A4 area: 22.8 cm2 LA dimension(2D): 4.3 cm LAV(MOD-bp) Indexed: 38.5 ml/m2 LAV(MOD-sp2): 76.8 ml LAV(MOD-sp4): 75.5 ml RA A4 area: 14.9 cm2 Doppler Measurements & Calculations MV E max khari: 64.2 cm/sec Lat Peak E' Khari: 6.8 cm/sec Med Peak E' Khari: 6.3 cm/sec MV A max khari: 68.9 cm/sec E/E' lat: 9.4 E/E' med: 10.3 MV E/A: 0.93 Ao V2 max: 103.4 cm/sec LV V1 max: 73.3 cm/sec PA V2 max: 61.8 cm/sec Ao max P.3 mmHg LV V1 max P.2 mmHg TR max khari: 204.6 cm/sec TR max P.8 mmHg Interpretation Summary Normal LV size. The estimated ejection fraction is 55 %. Stage 1 diastolic dysfunction. Mild tricuspid valve insufficiency. Pulmonary artery systolic pressure is 20 mmHg. Ordering Physician: Catalina Daly Referring Physician: Catalina Daly Performed By: Emma Carty, LEE, RVT
== END ==
PROVIDERS: Family Provider Nurse Practitioner; PCP Nurse Practitioner; Referring Provider Internal Medicine; Visit Provider Internal Medicine
DX: R07.9 Chest pain, unspecified (principal)
CPT/HCPCS: 93306

== ENCOUNTER → 2018-08-05 06:06 | Outpatient (CLI) | payer MEDICARE, SELFPAY ==
--- NOTE | 2018-08-05 09:01 | STRESSREP ---
Stress Test Report Exercise myocardial perfusion stress test. 73-year-old lady with a history of chest pain. Stress protocol: Resting EKG demonstrates normal sinus rhythm with a rate of 63 bpm normal intervals are noted resting blood pressure 114/78 mmHg. The patient exercised according to regular Rj protocol for total duration of 6 minutes completing stage II of the Rj protocol. The maximum heart rate attained was 115 bpm which was 79% maximum predicted heart rate the maximum workload was 7 metabolic equivalents. The patient maintained sinus rhythm throughout the recording. At rest there were no ST or T wave changes noted suggest ischemia at peak exercise no ST or T wave changes were noted suggest ischemia. No clinical angina was noted the test was terminated due to leg fatigue. The resting blood pressure 114/78 with a peak blood pressure 142/90 mmHg. Myocardial perfusion protocol. 14.5 mCi of technetium 99m sestamibi was injected at rest the patient exercised according to regular Rj protocol and at peak exercise 45.0 mCi of technetium 99m sestamibi was injected stress images were obtained stress and rest images were reconstructed and compared in the short axis vertical long and horizontal long axis. Gated images were also obtained per Perfusion SPECT analysis: Review of the stress images demonstrate normal uptake of tracer noted in all areas of the myocardium. The resting images similarly demonstrate normal uptake of tracer noted in all areas of the myocardium. No areas of reversibility are noted suggest ischemia. Gated SPECT analysis: The gated ejection fraction is noted to be 77%. Conclusion: Normal exercise myocardial perfusion stress test at a moderate workload. Preserved ejection fraction.
== END ==
PROVIDERS: Family Provider Nurse Practitioner; PCP Nurse Practitioner; Referring Provider Internal Medicine; Visit Provider Internal Medicine
DX: R07.9 Chest pain, unspecified (principal)
CPT/HCPCS: 78452; 93017; A9500; A4216

== ENCOUNTER → 2018-12-08 12:24 | Outpatient (CLI) | payer MEDICARE, SELFPAY ==
--- NOTE | 2018-12-08 12:41 | MRI_ITS ---
STUDY: MRI CERVICAL SPINE WITHOUT CONTRAST REASON FOR EXAM: Female, 73 years old. Neck pain, left arm pain and radicular body. TECHNIQUE: Standardized fat and water weighted pulse sequences were obtained in the sagittal and axial planes. COMPARISON: CT 02/15/2014 FINDINGS: Normal foramen magnum and brainstem-cervical cord junction. Normal craniovertebral junction. Normal anterior atlantoaxial articulation. Normal odontoid process. Normal cervical lordosis. Normal vertebral bodies and posterior osseous elements. C2-3: Moderate left facet hypertrophy with mild left neural foraminal stenosis. No central spinal stenosis. C3-4: Mild left facet hypertrophy. No spinal stenosis or neural foraminal stenosis. C4-5: Moderate left facet hypertrophy produces mild left neural foraminal stenosis. No central spinal stenosis. C5-6: Mild broad disc osteophyte complex produces mild spinal stenosis but no neural foraminal stenosis. C6-7: Mild broad disc osteophyte complex produces mild spinal stenosis but no neural foraminal stenosis. Right-sided nerve sheath arachnoid cyst. C7-T1: Normal endplates. Normal disc height, signal and morphology. Normal central canal and intervertebral neural foramina. Small bilateral nerve sheath arachnoid cysts. Normal cervical cord. Normal visualized soft tissue structures. MRI/Spine Cervical (Routine) IMPRESSION: Multilevel degenerative changes, as described above. Electronically Signed: Gene Tierney MD at 13:57 EDT Tel , Service support ,
== END ==
PROVIDERS: Family Provider Nurse Practitioner; PCP Nurse Practitioner; Referring Provider Nurse Practitioner; Visit Provider Nurse Practitioner
DX: M54.2 Cervicalgia (principal)
CPT/HCPCS: 72141

== ENCOUNTER → 2019-04-17 09:53 | Outpatient (CLI) | payer MEDICARE, SELFPAY ==
--- NOTE | 2019-04-17 10:00 | RAD_ITS ---
STUDY: X-RAY CHEST REASON FOR EXAM: Female, 73 years old. Cough. TECHNIQUE: PA and lateral views of the chest. COMPARISON: Comparison is made with prior study dated August 17, 2016. FINDINGS: The lungs are clear and expanded. Scattered calcified granulomas. There is no demonstrated pleural abnormality. Normal size heart. Normal mediastinum and nadia. Normal visualized pulmonary arteries. Normal visualized aortic arch and descending thoracic aorta. There are degenerative changes of the visualized thoracic spine. Normal visualized ribs, clavicles, and shoulders. There is no demonstrated abnormality of the visualized soft tissue structures of the upper abdomen. RAD/Chest PA and Lateral IMPRESSION: No acute abnormality seen. Electronically Signed: Michael Dailey, at 10:38 EDT , Service support ,
== END ==
PROVIDERS: Family Provider Nurse Practitioner; PCP Nurse Practitioner; Referring Provider Internal Medicine; Visit Provider Internal Medicine
DX: J67.2 Bird fancier's lung (principal); R05 Cough
CPT/HCPCS: 71046

== ENCOUNTER → 2020-08-08 09:50 | Outpatient (CLI) | payer MEDICARE, SELFPAY ==
[2020-08-08 12:27] LABS: Absolute Lymphocyte Count 2.01 X10^3/uL (0.83-4.51); Absolute Neutrophil Count 3.2 X10^3/uL (2.0-7.7); Basophil# 0.05 X10^3/uL; Basophil% 0.8 % (0-1); Eosinophil# 0.18 X10^3/uL; Hematocrit 45.8 % (37-47); Hemoglobin 14.4 g/dL (12.0-15.0); Lymphocyte # 2.01 X10^3/ul (4.0); Lymphocyte % 33.3 % (19-41); Mean Corp Hgb Conc 31.4 g/dL (32-36); Mean Corpuscular Hgb 28.9 pg (27.0-32.0); Mean Corpuscular Volume 91.8 fL (81-99); Mean Platelet Vol. 9.8 fl (6.2-12.0); Monocyte# 0.56 X10^3/uL; Monocyte% 9.3 % (0-10); NRBC Flagged by Analyzer 0 % (0-5); Neutrophil # 3.23 X10^3/uL (2.7-7.7); Neutrophil % 53.4 % (47-70); Platelet Count 277 K/mm3 (150-450); RBC Distribution Width CV 13.9 % (11.6-14.6); RBC Distribution Width SD 47.5 fl (35.1-43.9); Red Blood Count 4.99 M/mm3 (4.2-5.4)
[2020-08-08 13:09] LABS: Microalbumin,Random Urine 13.2 mg/L (NO RANGE EST.); Microalbumin:Creatinine Ratio 26.6 mg/g CRE (<30 mg/g CRE)
[2020-08-08 13:25] LABS: AST(SGOT) 20 U/L (15-37); Alanine Aminotransfer ALT/SGPT 24 U/L (13-56); Albumin, Serum 3.6 g/dL (3.2-5.0); Alkaline Phosphatase 61 U/L (45-117); Anion Gap 5 (5-15); BUN 29 mg/dL (7-18); Calcium,Total 9.5 mg/dL (8.5-10.1); Chloride 104 mmol/L (98-107); Cholesterol 176 mg/dL (200); EST Glomerular Filtration Rate 73 mL/min (>60); Est Glom Filt Rate - Afr Amer 89 mL/min (>60); Globulin 3.7 g/dL (2.2-4.2); Glucose 81 mg/dL (74-106); High Density Lipoprotein 68 mg/dL; Potassium 4.4 mmol/L (3.5-5.1); Protein, Total 7.3 g/dL (6.4-8.2); Sodium Level 136 mmol/L (136-145); Thyroid Stim Hormone (TSH) 2.81 uIU/mL (0.358-3.74); Triglycerides 80 mg/dL; Very Low Density Lipoprotein 16 mg/dL (5-40)
== END ==
PROVIDERS: PCP Nurse Practitioner; Referring Provider Nurse Practitioner; Visit Provider Nurse Practitioner
DX: I10 Essential (primary) hypertension (principal); E03.9 Hypothyroidism, unspecified
CPT/HCPCS: 36415; 80053; 80061; 82043; 82570; 84443; 85025

== ENCOUNTER 2020-08-21 01:31 | Emergency (ER) | payer MEDICARE, SELFPAY ==
[2020-08-21 01:33] VITALS: BP 150/91; PULSE 69; RESP 16; TEMP 36.5; O2SAT 99; BMI 36.4
--- NOTE | 2020-08-21 01:50 | ED.VIS.GEN ---
History of Present Illness Chief Complaint: Lower Extremity Injury Detail of Chief Complaint: Left lower leg pain and swelling Informant: Patient Onset: Days Context: Gradual Onset Timing: Waxes and wanes Current Severity: Mild Maximum Severity: Moderate Narrative: Patient presents secondary to left lower leg pain and swelling. She states her leg has been swelling on and off for the past week or so. Tonight she woke and it was painful. She is concerned for blood clot. She has had 1 prior blood clot after a knee replacement. She is not currently anticoagulants. She denies chest pain or shortness of breath. - Past Medical History (1) Hypothyroid Status: Chronic (2) Hypertension Status: Chronic Past Medical History - Allergies and Home Meds Allergies/Adverse Reactions: Allergies celecoxib [From Celebrex] Allergy (Verified 08/21/20 01:39) Other meloxicam Allergy (Verified 08/21/20 01:32) Other metaxalone [From Skelaxin] Allergy (Verified 08/21/20 01:39) Other Penicillins [PCN] Allergy (Verified 08/21/20 01:32) Hives Sulfa (Sulfonamide Antibiotics) Allergy (Verified 08/21/20 01:32) Unknown Primary Care Physician: Serena Quiñonez [employer] AR[employer], [employer] AR[employer]-C [Primary Care Provider] - Smoking Status: Never smoker Review of Systems General: Denies: Chills, Fever Eyes: Denies: Visual changes - bilaterally ENT: Denies: Bilateral ear pain Cardiovascular: Denies: Chest pain, Palpitations Respiratory: Denies: Dyspnea, Cough Gastrointestinal: Denies: Abdominal pain, Vomiting, Diarrhea Musculoskeletal: Reports: Swelling, Extremity Pain Skin: Denies: Wounds Neurological: Denies: Headache Hematologic: Denies: Easy bruising, Easy bleeding Allergy: Denies: Uticaria Physical Exam Vital Signs/Narrative: Vital Signs Temp Pulse Resp BP Pulse Ox 08/21/20 01:33 97.7 F L 69 16 150/91 H 99 Inital Vital Signs reviewed: Yes General: Well nourished, Well developed Head: Normocephalic ENT: Moist mucous membranes Neck: Supple Cardiovascular: Regular rate, Regular rhythm Respiratory: No distress, CTA bilaterally Abdomen: Soft, Nontender Extremities: - - 1+ edema left lower extremity with mild erythema along the inner left ankle. No significant warmth or sign of cellulitis. No wounds. Strong distal pulses. Neurological: Alert, Oriented x3, Normal Strength, Normal Sensation Psychological: Normal affect Diagnostic/Tx/Re-eval - Medical Decision Making Patient presents during the overnight hours my do not have ultrasound available. She will be covered with a dose of Lovenox at this time and will return in the morning for a an outpatient ultrasound of her leg. Patient is comfortable with this plan. ED Disposition - Plan for ED Patient: Disposition: Home or Assisted Living Diagnosis: Lower extremity edema Instructions: ED Peripheral Edema, Unilateral Referrals: Serena Quiñonez NP, [employer] [Primary Care Provider] - Additional Instructions: Return for ultrasound of leg as discussed. They will call you with your appointment time.
[2020-08-21] MEDS: Enoxaparin 100 MG/ML Syringe 90 MG SC (01:56)
[2020-08-21 02:50] VITALS: BP 121/56; PULSE 68; RESP 14; O2SAT 100
== END 2020-08-21 02:51 | disposition home or self-care (01) ==
LOC: ED 02:02
PROVIDERS: Emergency Provider Emergency Medicine; PCP Nurse Practitioner
DX: R60.0 Localized edema (principal); I10 Essential (primary) hypertension; E03.9 Hypothyroidism, unspecified
CPT/HCPCS: 96372; 99282

== ENCOUNTER → 2020-08-22 10:49 | Outpatient (CLI) | payer MEDICARE, SELFPAY ==
[2020-08-21 01:33] VITALS: BMI 36.4
--- NOTE | 2020-08-22 10:51 | VDLE_ITS ---
Reason For Study: PAIN RIGHT LEFT CFV is compressible, spontaneous, phasic, GSV is normal. competent and demonstrates normal CFV is compressible, spontaneous, phasic, augmentation. competent, and demonstrates normal augmentation. FV is compressible, spontaneous, phasic, competent and demonstrates normal augmentation. POP V is compressible, spontaneous, phasic, competent and demonstrates normal augmentation. T/P Trunk is compressible. PTV is compressible. LT PerV is compressible. Interpretation Summary There is no evidence of left lower extremity deep vein thrombosis. Left great saphenous vein appears patent and compressible segmentally. Normal flow patterns right common femoral vein. Ordering Physician: Nicolle Cyr Referring Physician: CHARLES CHAU Performed By: Deborah Kelley, LUCYCS, RVT
== END ==
PROVIDERS: PCP Nurse Practitioner; Referring Provider Emergency Medicine; Visit Provider Emergency Medicine
DX: M79.605 Pain in left leg (principal)
CPT/HCPCS: 93971

== ENCOUNTER → 2020-09-20 12:52 | Outpatient (CLI) | payer MEDICARE, SELFPAY ==
[2020-08-21 01:33] VITALS: BMI 36.4
--- NOTE | 2020-09-20 13:01 | VDLE_ITS ---
Reason For Study: Venous insufficiency RIGHT LEFT CFV is compressible, spontaneous, phasic, CFV is compressible, spontaneous, phasic, competent and demonstrates normal competent, and demonstrates normal augmentation. augmentation. FV is compressible, spontaneous, phasic, FV is compressible, spontaneous, phasic, competent and demonstrates normal competent and demonstrates normal augmentation. augmentation. POP V is compressible, spontaneous, phasic, POP V is compressible, spontaneous, phasic, competent and demonstrates normal competent and demonstrates normal augmentation. augmentation. T/P Trunk is compressible. T/P Trunk is compressible. PTV is compressible. PTV is compressible. RT PerV is compressible. LT PerV is compressible. SFJ is INCOMPETENT and measures 0.79 x 0.93 GSV is noncompressible at mid calf. Distal cm. calf is partially noncompressible. GSV proximal thigh measures 0.36 x 0.36 cm. GSV is competent from junction to prox calf. GSV at knee measures 0.29 x 0.29 cm. SFJ is competent and measures 0.86 x 0.79 cm. GSV is competent throughout. GSV proximal thigh measures 0.33 x 0.37 cm. ASV proximal calf is INCOMPETENT for greater GSV at knee measures 0.25 x 0.24 cm. than 0.5 seconds and measures 0.35 x 0.32 SSV proximal calf is competent and measures cm. 0.20 x 0.19 cm. INCOMPETENT scrap iron loader noted 13 cm above medial malleolus. SSV proximal calf is INCOMPETENT for greater than 0.5 seconds and measures 0.13 x 0.14 cm. Procedure This is a venous duplex using B-mode, color flow and spectral Doppler. Exam performed in department. A preliminary report was called and/or faxed to [facility]. Interpretation Summary Deep veins of the lower extremities are bilaterally patent and compressible segmentally. There is no evidence of deep vein thrombosis on either side. Valvular competence appears intact within the proximal deep venous systems bilaterally. The right great saphenous vein appears patent and compressible segmentally. Acute superficial thrombophlebitis is noted in the left great saphenous vein in the mid- and distal calf. The left great saphenous vein is patent and compressible more proximally. The right sapheno-femoral junction is incompetent . The left sapheno-femoral junction is competent . The right great saphenous vein appears segmentally competent. The left great saphenous vein is competent from the left sapheno-femoral junction to the proximal calf. The right small saphenous vein is patent and incompetent. The left small saphenous vein is patent and competent. The right accessory saphenous vein in the proximal calf is incompetent. An incompetent scrap iron loader vein is noted in the right calf, located 13 centimeters proximal to the right medial malleolus. Ordering Physician: Serena Quiñonez Referring Physician: Serena Quiñonez Performed By: Marii Gonsalez RVT
== END ==
PROVIDERS: PCP Nurse Practitioner; Referring Provider Nurse Practitioner; Visit Provider Nurse Practitioner
DX: I87.2 Venous insufficiency (chronic) (peripheral) (principal); I80.02 Phlebitis and thrombophlebitis of superficial vessels of left lower extremity
CPT/HCPCS: 93970

== ENCOUNTER 2020-10-24 14:13 | Observation (INO) | payer MEDICARE, SELFPAY ==
[2020-10-24] VITALS (9 sets, daily range): BP systolic 121–152; BP diastolic 57–67; PULSE 63–73; RESP 12–18; TEMP 36.4–36.8; O2SAT 94–99; BMI 33.2; BMI 36.8; BMI 36.9
--- NOTE | 2020-10-24 15:10 | EKG12_ITS ---
Test Reason : Blood Pressure : / mmHG Vent. Rate : 061 BPM Atrial Rate : 061 BPM P-R Int : 166 ms QRS Dur : 084 ms QT Int : 412 ms P-R-T Axes : 056 009 049 degrees QTc Int : 414 ms Normal sinus rhythm Normal ECG Confirmed by AMY GIPSON, MONTSE ([id number]), pictures editor REBECCA REDDING ([id number]) on 10/27/2020 9:00:41 AM Referred By: SHELBI Confirmed By:MONTSE REYES MD
[2020-10-24] MEDS: Ondansetron 4 MG/2 ML Vial IV (15:23)
[2020-10-24] MEDS: Morphine 4 MG/ML Syringe IV (15:23)
--- NOTE | 2020-10-24 15:26 | RAD_ITS ---
STUDY: X-RAY CHEST REASON FOR EXAM: Female, 75 years old. Chest pain TECHNIQUE: Single AP portable view of the chest. COMPARISON: Comparison is made with prior study dated 04/17/2019. FINDINGS: EKG electrodes are seen. The lungs are clear and expanded. Scattered calcified granulomas. There is no demonstrated pleural abnormality. Normal size heart. Normal mediastinum and nadia. Normal visualized pulmonary arteries. Normal visualized aortic arch and descending thoracic aorta. Normal visualized thoracic spine. Normal visualized ribs, clavicles, and shoulders. There is no demonstrated abnormality of the visualized soft tissue structures of the upper abdomen. RAD/Chest 1 View (Portable) IMPRESSION: Stable examination. No acute abnormality is seen. Electronically Signed: Michael Dailey MD at 15:34 EDT , Service support ,
[2020-10-24 15:40] LABS: Absolute Lymphocyte Count 2.39 X10^3/uL (0.83-4.51); Absolute Neutrophil Count 3.7 X10^3/uL (2.0-7.7); Basophil# 0.04 X10^3/uL; Basophil% 0.6 % (0-1); Eosinophil# 0.39 X10^3/uL; Eosinophils% 5.5 % (0-5); Hematocrit 41.3 % (37-47); Hemoglobin 13.2 g/dL (12.0-15.0); Lymphocyte # 2.39 X10^3/ul (0.83-4.51); Lymphocyte % 33.6 % (19-41); Mean Corpuscular Hgb 29.7 pg (27.0-32.0); Mean Platelet Vol. 9.1 fl (6.2-12.0); Monocyte# 0.56 X10^3/uL; Monocyte% 7.9 % (0-10); NRBC Flagged by Analyzer 0 % (0-5); Neutrophil # 3.72 X10^3/uL (2.7-7.7); Neutrophil % 52.1 % (47-70); Platelet Count 288 K/mm3 (150-450); RBC Distribution Width CV 13.7 % (11.6-14.6); Red Blood Count 4.44 M/mm3 (4.2-5.4); White Blood Count 7.1 K/mm3 (4.4-11.0)
[2020-10-24 15:55] LABS: Anion Gap 6 (5-15); BUN 21 mg/dL (7-18); BUN/Creat Ratio 25.3 RATIO (10-20); Calcium,Total 8.9 mg/dL (8.5-10.1); Chloride 100 mmol/L (98-107); Creatinine, Serum 0.83 mg/dL (0.55-1.02); EST Glomerular Filtration Rate 71 mL/min (>60); Est Glom Filt Rate - Afr Amer 86 mL/min (>60); Estimated Creatinine Clearance 46.95 ml/min; Glucose 84 mg/dL (74-106); Potassium 3.8 mmol/L (3.5-5.1); Sodium Level 136 mmol/L (136-145)
[2020-10-24 16:15] LABS: BNP,B-Type NATRIURETIC PEPTIDE 107.6 pg/mL (0-100)
[2020-10-24 16:28] LABS: D-Dimer Quantitative (DVT/PE) 0.53 FEU/ug/m (0.27-0.49)
--- NOTE | 2020-10-24 17:31 | ED.VISSUMM ---
- ER Visit Summary Date of Service: 10/24/20 Chief Complaint: Chest pain History of Present Illness: The patient is a 75 F who sees Serena Quiñonez and Dr. Carlin. She reports that she has chest pain that began 3 days ago. It is a left-sided pinching pain is at a 10 at worst and 6 out of 10 currently. Is worsened by nothing including exertion or breathing. Is also relieved by nothing. She reports that she has been short of breath and nauseated with it. She also reports has been lightheaded and fatigued. Patient reports that she has had intermittent ankle swelling for the past 5 weeks. She denies any PND or orthopnea. She denies any chest pain with exertion. However, she does report she had increased dyspnea on exertion for the past 2 weeks and it is much worse over the past 2 days. Physical Examination: Vitals: Stable. Afebrile. General: Well-nourished and well-developed. Head: Normocephalic atraumatic. Neck: Supple, no lymphadenopathy. No JVD. Nontender. Cardiovascular: Regular rate and rhythm. 2 out of 6 systolic murmur. Respiratory: No respiratory distress. Clear to auscultation bilaterally. Abdominal: Soft, nontender, nondistended, normal bowel sounds. No guarding, rebound, or peritoneal signs. Back: Nontender. Extremities: Nontender, no edema. Skin: Normal color, no rash. Neurologic: Alert and oriented ?3. Cranial nerves II through XII are intact. Normal strength and sensation. Psych: Normal affect. Test Results: EKG is sinus at [address] changes and a Q wave in lead III. There is no old EKG for comparison. Troponin is negative. BNP is 108. D-dimer is negative when adjusted for age. Chem-7 shows a BUN of 21. CBC shows eosinophils of 6. Covid is negative. Clinical Impression(s) from Imaging Studies Chest X-Ray 10/24/20 15:26 IMPRESSION: Stable examination. No acute abnormality is seen. Electronically Signed: Michael Dailey MD at 15:34 EDT , Service support , Emergency Department Course and Treatment: Patient was treated with aspirin p.o., morphine and Zofran IV. She is resting comfortably. Treatment Plan: Patient was discussed with Dr. Barbour. She will be admitted to the hospital for further evaluation and treatment. Disposition: Admitted in stable condition. Impression: 1. Atypical chest pain. 2. Heart score 4. This note was generated with [employer] dictation software. It may contain incorrect words, spelling, and punctuation that were not noted in review of the chart prior to signing ED Disposition - Plan for ED Patient: Referrals: Serena Quiñonez NP, [employer] MAINTENANCE [employer]W WORKER-C [Primary Care Provider] -
[2020-10-24] MEDS: Aspirin 81 MG TAB.CHEW 324 MG PO (17:58)
--- NOTE | 2020-10-24 18:02 | PCM.HP.STD ---
<Taylor Serrano - Last Filed: 10/24/20 18:02> Problem List (1) Chest pain Status: Acute (2) Elevated d-dimer Status: Acute (3) Hypothyroid Status: Chronic (4) Hypertension Status: Chronic History of Present Illness Date of Admission: 10/24/20 Chief Complaint: Chest pain The patient is a 75 year old F who presents today with chest pain. Patient states that approximately 2-1/2 weeks ago she donated blood and has been exhausted ever since. Patient reports that in the past 4 days this exhaustion has increased along with having a pinching pain in her chest. Patient states that the pain comes during activity and while at rest and while nothing brings the pain on, the pain was reduced after taking full-strength dose aspirin per her PCPs instruction earlier today. Patient also reports that she has had increased swelling in her bilateral ankles and feet over the past couple weeks and that she is currently being worked up outpatient for peripheral vascular disease. Patient also reports that her is recently and she is still dealing with his loss. Past Medical History Past Medical History (Chronic Problems): Chronic Problems Hypothyroid (Chronic) Hypertension (Chronic) Allergies celecoxib [From Celebrex] Allergy (Verified 10/24/20 14:17) Other meloxicam Allergy (Verified 10/24/20 14:17) Other metaxalone [From Skelaxin] Allergy (Verified 10/24/20 14:17) Other Penicillins [PCN] Allergy (Verified 10/24/20 14:17) Hives Sulfa (Sulfonamide Antibiotics) Allergy (Verified 10/24/20 14:17) Unknown Home Medications: Ambulatory Orders Medication Instructions Recorded Levothyroxine [Synthroid] 112 mcg PO DAILY 08/14/15 Acetaminophen [Tylenol Arthritis] 1,300 tab PO QHS 08/21/20 Acetaminophen [Tylenol Arthritis] 650 mg PO DAILY 08/21/20 Losartan Potassium 50 mg PO DAILY 08/21/20 Aspirin [Aspirin EC] 81 mg PO DAILY 10/24/20 Tolterodine Tartrate [Detrol LA] 4 mg PO DAILY 10/24/20 Vit C/E/Zn/Coppr/Lutein/Zeaxan 1 cap PO DAILY 10/24/20 [Preservision Areds 2 Softgel] Surgical History: appendectomy, hysterectomy - Partial, 1 and half ovary still present, total knee arthroplasty - Bilateral, tonsillectomy Psychiatric History: No pertinent psych hx 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 Denies: Chills, Fever, Weight Change HEENT: Denies: Head Aches, Sinus Congestion, Sinus Drainage Cardiovascular: Reports: Chest Pain, Edema - Bilateral feet and ankles. Denies: Palpitations Respiratory: Denies: Cough, Shortness of Breath, Shortness of breath at rest, Sputum production Gastrointestinal: Denies: Abdominal Pain, Nausea, Vomiting Genitourinary: Denies: Dysuria Musculoskeletal: Denies: Joint Pain, Joint Tenderness Skin: Denies: Rash, Wounds Neurological: Denies: Numbness, Tingling, Focal weakness Psychiatric: Denies: Anxiety, Depression, Homicidal Ideations, Suicidal Ideations Hematologic/ Lymphatic: Denies: Easy Bruising, Easy Bleeding VTE Information - Inpt Only VTE Present on Admission: No VTE Mechan Device Prophylaxis: None VTE Pharm Prophylaxis ordered?: Yes Patient Problems: Active and Suspected Problems Chest pain (Acute) Elevated d-dimer (Acute) - Physical Exam Vitals/I&O's: Vital Signs Temp Pulse Resp BP Pulse Ox 98.3 F 73 14 152/67 H 97 10/24/20 17:59 10/24/20 18:00 10/24/20 18:00 10/24/20 18:00 10/24/20 18:00 Oxygen Delivery Method Room Air Weight: 187 lb 6.287 oz Body Mass Index (BMI) 33.2 General: Alert, Oriented x3, Cooperative HEENT: Atraumatic, PERRLA, EOMI, Normocephalic Neck: Supple, No JVD, Negative Carotid Bruits Lungs: Clear to auscultation, Normal air movement, No rhonchi, No wheeze, No rales Cardiovascular: Regular rate, Regular Rhythm, Normal S1, Normal S2, No murmurs Abdomen: Bowel Sounds Present, Soft, Non Tender Extremities: Capillary Refill Less than 3 Seconds, Edema - Nonpitting bilateral feet, Peripheral Pulses Normal Skin: No rashes, No breakdown Musculoskeletal: No Tenderness to Palpation of Joints or Extremities Neurological: Cranial nerves II-XII grossly intact Psych/Mental Status: Normal Affect, Appropriate Microbiology Past 72 Hours 10/24/20 15:55 Nasal Secretion SARS-CoV-2 Antigen (Rapid) - Final Laboratory Results 10/24/20 15:20: WBC 7.1, RBC 4.44, Hgb 13.2, Hct 41.3, MCV 93.0, MCH 29.7, MCHC 32.0, RDW Std Deviation 47.0 H, RDW Coeff of Raven 13.7, Plt Count 288, MPV 9.1, Immature Gran % (Auto) 0.300, Neut % (Auto) 52.1, Lymph % (Auto) 33.6, [place] % (Auto) 7.9, Eos % (Auto) 5.5 H, Baso % (Auto) 0.6, Absolute Neuts (auto) 3.7, Absolute Lymphs (auto) 2.39, Nucleated RBC % 0 10/24/20 15:20: D-Dimer Quant (PE/DVT) 0.53 H* 10/24/20 15:20: Sodium 136, Potassium 3.8, Chloride 100, Carbon Dioxide 30.0, Anion Gap 6, BUN 21 H, Creatinine 0.83, Estim Creat Clear Calc 46.95, Est GFR (MDRD) Af Amer 86, Est GFR (MDRD) Non-Af 71, BUN/Creatinine Ratio 25.3 H, Glucose 84, Calcium 8.9, Troponin I < 0.015 10/24/20 15:20: B-Natriuretic Peptide 107.6 H Assessment/Plan All Active Problems Chest pain (Acute) Elevated d-dimer (Acute) 1. Chest pain -Admit to PCU for observation and cardiac monitoring -Trend cardiac enzymes, initial troponin negative -Stress test ordered for a.m. -PT and OT to eval and treat -Cardiac heart healthy diet -N.p.o. at midnight for stress -Lipid profile in a.m., most recent lipid panel 08/08/2020 within normal limits. 2. Elevated D-dimer -When corrected for age D-dimer normal. 3. Hypertension -Continue home medication regimen of losartan 50 mg p.o. daily. -As needed sublingual nitroglycerin ordered 4. Hypothyroidism -Continue home levothyroxine 112 mcg p.o. daily -Last TSH 08/08/2020, 2.81 DVT prophylaxis-subcu Lovenox This patient was seen by MARGARET Zepeda under the supervision of Dr. Barbour. <Carlene Barbour E - Last Filed: 10/24/20 18:27> History of Present Illness The patient is a 75 year old F [] Past Medical History Allergies celecoxib [From Celebrex] Allergy (Verified 10/24/20 14:17) Other meloxicam Allergy (Verified 10/24/20 14:17) Other metaxalone [From Skelaxin] Allergy (Verified 10/24/20 14:17) Other Penicillins [PCN] Allergy (Verified 10/24/20 14:17) Hives Sulfa (Sulfonamide Antibiotics) Allergy (Verified 10/24/20 14:17) Unknown - Physical Exam Vitals/I&O's: Vital Signs Temp Pulse Resp BP Pulse Ox 98.3 F 73 14 152/67 H 97 10/24/20 17:59 10/24/20 18:00 10/24/20 18:00 10/24/20 18:00 10/24/20 18:00 Oxygen Delivery Method Room Air Weight: 187 lb 6.287 oz Body Mass Index (BMI) 33.2 Microbiology Past 72 Hours 10/24/20 15:55 Nasal Secretion SARS-CoV-2 Antigen (Rapid) - Final Laboratory Results 10/24/20 15:20: WBC 7.1, RBC 4.44, Hgb 13.2, Hct 41.3, MCV 93.0, MCH 29.7, MCHC 32.0, RDW Std Deviation 47.0 H, RDW Coeff of Raven 13.7, Plt Count 288, MPV 9.1, Immature Gran % (Auto) 0.300, Neut % (Auto) 52.1, Lymph % (Auto) 33.6, [place] % (Auto) 7.9, Eos % (Auto) 5.5 H, Baso % (Auto) 0.6, Absolute Neuts (auto) 3.7, Absolute Lymphs (auto) 2.39, Nucleated RBC % 0 10/24/20 15:20: D-Dimer Quant (PE/DVT) 0.53 H* 10/24/20 15:20: Sodium 136, Potassium 3.8, Chloride 100, Carbon Dioxide 30.0, Anion Gap 6, BUN 21 H, Creatinine 0.83, Estim Creat Clear Calc 46.95, Est GFR (MDRD) Af Amer 86, Est GFR (MDRD) Non-Af 71, BUN/Creatinine Ratio 25.3 H, Glucose 84, Calcium 8.9, Troponin I < 0.015 10/24/20 15:20: B-Natriuretic Peptide 107.6 H Assessment/Plan Hospitalist note: I am seeing this patient in conjunction with Taylor Serrano. I independently seen and examined the patient. History and physical, laboratory data and imaging studies reviewed and I concur with above admission and work-up plan. Patient presented to the emergency room because of chest pain started on 4 days ago, described as pinching pain, intermittent, not radiating, mainly exertional and no associated symptoms. She denied associated shortness of breath, palpitation, dizziness or lightheadedness. In the emergency department, her vital signs were stable. Her routine blood work was unremarkable. EKG revealed normal sinus rhythm without evidence of acute ischemic changes. Troponin was negative. Chest x-ray showed no acute findings. D-dimer was elevated but it is normal when adjusted to age. Patient is not tachycardic or hypoxic. She is being admitted for chest pain for evaluation. - Physical Exam General: Alert, Oriented x3, Cooperative, No apparent distress. HEENT: Atraumatic, PERRLA, EOMI. Neck: Supple, No JVD, Negative Carotid Bruits, Trachea Midline, Thyroid Normal. Lungs: Clear to auscultation, Normal air movement, No rhonchi, No wheeze, No rales. Cardiovascular: Regular rate, Regular Rhythm, Normal S1, Normal S2, PMI Normal. Abdomen: Bowel Sounds Present, Soft, Non Tender, Non-Distended, No Hepato-splenomegaly. Extremities: No clubbing, No cyanosis, No edema Skin: No rashes, No breakdown Neurological: Cranial nerves are intact, neuro grossly intact Vital Signs are stable. Assessment and plan: #1 chest pain: Risk factors are age, hypertension. She had stress test on August, that was unremarkable. Today, chest x-ray showed no acute findings. Corrected D-dimer for age was normal. EKG reviewed as above as well as troponin. Plan: Admit to PCU for observation, cardiac monitoring, serial cardiac enzymes, nuclear stress test tomorrow morning if cardiac enzymes are negative, sublingual nitroglycerin, Tylenol as needed, Zofran as needed, IV fluids. #2 other chronic medical problems: Stable, continue current medications as above. This note was generated with [employer] dictation software. It may contain incorrect words, spelling, and punctuation that were not noted in checking the note before signing. OBSV E&M: [id number] Initial observation care L2
[2020-10-24] MEDS: 0.9% Normal Saline 1,000 ML 75 ML IV (18:30)
--- NOTE | 2020-10-24 19:09 | EKG12_ITS ---
Test Reason : AM EKG Blood Pressure : / mmHG Vent. Rate : 058 BPM Atrial Rate : 058 BPM P-R Int : 186 ms QRS Dur : 086 ms QT Int : 428 ms P-R-T Axes : 018 000 044 degrees QTc Int : 420 ms Sinus bradycardia Confirmed by AMY GIPSON, MONTSE ([id number]), international editorial producer REBECCA REDDING ([id number]) on 10/27/2020 9:30:06 AM Referred By: ROSEMARIE Confirmed By:MONTSE REYES MD
[2020-10-24] MEDS: Acetaminophen 325 MG Tablet 650 MG PO (20:40)
--- NOTE | 2020-10-25 06:00 | EKG12_ITS ---
Test Reason : CP ADMISSION Blood Pressure : / mmHG Vent. Rate : 069 BPM Atrial Rate : 069 BPM P-R Int : 168 ms QRS Dur : 086 ms QT Int : 398 ms P-R-T Axes : 049 -02 035 degrees QTc Int : 426 ms Normal sinus rhythm Normal ECG Confirmed by AMY GIPSON, MONTSE ([id number]), editorial project manager REBECCA REDDING ([id number]) on 10/27/2020 9:32:29 AM Referred By: DR HOUSTON Confirmed By:MONTSE REYES MD
[2020-10-25] MEDS: Aspirin E.C. 81 MG Tablet PO (06:30)
[2020-10-25] MEDS: Losartan Potassium 50 MG Tablet PO (06:30)
[2020-10-25] MEDS: Levothyroxine 112 MCG Tablet PO (06:30)
[2020-10-25 06:59] VITALS: O2SAT 94
[2020-10-25 07:27] VITALS: PULSE 63
[2020-10-25 07:48] LABS: Cholesterol 165 mg/dL (200); High Density Lipoprotein 54 mg/dL; Triglycerides 64 mg/dL; Very Low Density Lipoprotein 13 mg/dL (5-40)
[2020-10-25 07:50] VITALS: BP 110/49; PULSE 63; RESP 16; TEMP 36.5; O2SAT 97
[2020-10-25] MEDS: Tolterodine Tartrate 4 MG CAP.SA PO (11:30)
--- NOTE | 2020-10-25 12:42 | STRESSREP_ITS ---
Stress Test Report Date: 10-25-2020 Procedure: Pharmacologic stress nuclear imaging study Indications: Chest pain Consent: Per the patient Procedure: The patient underwent pharmacologic (Regadenoson 0.4mg ) evaluation with a peak heart rate of 87 beats per minute (60%predicted maximal heart rate) and a peak blood pressure of 126/62 mmHg. The baseline ECG demonstrated sinus bradycardia. The peak pharmacologic ECG demonstrated no obvious ECG changes. There were no cardiac dysrhythmias pretest, during pharmacologic infusion, or recovery. There was no complaint of chest discomfort during pharmacologic infusion or recovery. The examination was discontinued secondary to completion of protocol. Impression: 1. Pharmacologic (Regadenoson) evaluation 2. Peak pharmacologic ECG with no obvious ECG changes. 3. There were no cardiac dysrhythmias pretest, during pharmacologic infusion, or recovery. 4. Nuclear images pending Myocardial perfusion imaging study: Technique: The patient was injected with 13.8 millicuries of technetium 99m Cardiolite and subsequently rest SPECT Cardiolite nuclear imaging was obtained in the horizontal long, vertical long, and short axis views. The patient underwent pharmacologic (Regadenoson) evaluation with a peak heart rate of 87 beats per minute (60% percent predicted maximal heart rate) and a peak blood pressure of 126/62 mmHg. The patient was injected with 42.1 millicuries of technetium 99m Cardiolite and subsequently stress SPECT Cardiolite nuclear imaging was obtained in the horizontal long, vertical long, and short axis views. A gated Cardiolite study at peak stress was obtained. Interpretation: Rest and stress SPECT Cardiolite nuclear imaging status post realignment, normalization, and attenuation correction demonstrate relative uniform tracer uptake and myocardial perfusion appearing within normal limits. There is end systolic thickening and brightening. The gated Cardiolite study demonstrates myocardial thickening and inward wall motion. The reported LVEF is 91%. Impression: 1. Rest and stress SPECT Cardiolite nuclear imaging demonstrate relative uniform tracer uptake and myocardial perfusion appearing within normal limits. 2. The gated Cardiolite study reports an LVEF of 91%. This note was generated with [employer] software. It may contain incorrect words, spelling, and punctuation that were not noted in checking the note before signing.
--- NOTE | 2020-10-25 12:49 | PCM.DC ---
Discharge Instructions Outpatient Procedure Reason For Visit: CHEST PAIN Diet Discharge Diet: No restrictions Activity Discharge Activity: Return to Normal Activity Follow Up Care Please Follow Up With: Serena Quiñonez When: 1 Week Test Results: Test results from this visit will be discussed in further detail at your follow-up appointment, if applicable. Discharge Plan Admission Admit Date/Time: 10/24/20 17:40 Primary Reason for Your Visit: Chest pain, cardiac etiology ruled out Attending Provider: Bill Nicholson Primary Care Provider: Serena Quiñonez NP Instructions Patient Instructions: ED Chest Pain, Noncardiac Discharge Orders/Prescriptions Prescriptions: Continued levothyroxine 112 MCG tablet 112 mcg PO DAILY RF: 0 losartan 50 MG tablet 50 mg PO DAILY RF: 0 acetaminophen 650 MG tablet extended release 650 mg PO DAILY RF: 0 acetaminophen 650 MG tablet extended release 1,300 tab PO QHS RF: 0 tolterodine 4 MG capsule,extended release 24hr 4 mg PO DAILY RF: 0 aspirin 81 MG tablet,delayed release (DR/EC) 81 mg PO DAILY RF: 0 vit C,T-Gq-bldxw-lutein-zeaxan 1 EACH capsule 1 cap PO DAILY RF: 0 Referrals: Serena Quiñonez NP, ANIMAL HUSBANDRY TEACHER-C [Primary Care Provider] -
--- NOTE | 2020-10-25 12:54 | PCM.DC.SUM ---
Documented by User: Jennifer Zee NP, PHARMACY ORDER ENTRY TECHNICIAN-C 10/25/20 13:15 Providers Date of Admission: 10/24/20 Primary Care Physician: MARGARET Man Reason For Visit: CHEST PAIN Diagnosis Discharge Diagnosis (1) Chest pain: Status: Acute Code(s): R07.9 - Chest pain, unspecified (2) Elevated d-dimer: Status: Acute Code(s): R79.89 - Other specified abnormal findings of blood chemistry (3) Hypothyroid: Status: Chronic Code(s): E03.9 - Hypothyroidism, unspecified (4) Hypertension: Status: Chronic Code(s): I10 - Essential (primary) hypertension Medications at Discharge Home Medications levothyroxine 112 mcg PO DAILY 08/14/15 acetaminophen 1,300 tab PO QHS 08/21/20 acetaminophen 650 mg PO DAILY 08/21/20 losartan 50 mg PO DAILY 08/21/20 aspirin 81 mg PO DAILY 10/24/20 tolterodine 4 mg PO DAILY 10/24/20 vit C,W-Nn-zunxd-lutein-zeaxan 1 cap PO DAILY 10/24/20 Hospital Course Summary of Care Provided Minutes Spent on Discharge: 35 Hospital Course: Patient admitted 10/24/2020 due to chest pain. She describes a pinching sensation in her chest. Troponin negative. EKG without ST-T changes. D-dimer elevated however corrected for age, normal. Patient underwent stress test which was negative for ischemia. Cardiac etiology ruled out. Suspect musculoskeletal in nature. She has a past medical history of hypertension and hypothyroidism which are stable. Follow-up with PCP in 1 week. Patient seen and examined prior to discharge. Physical assessment as noted below. Patient is stable for discharge with follow up recommendations as noted above. This patient was seen by MARGARET Winchester under the supervision of Dr. Nicholson. Physical Exam Const alert, oriented x3 and no apparent distress General Appearance: cooperative and comfortable Orientation / Consciousness: awake and oriented to person HEENT normocephalic Eyes PERRL, EOMs intact bilaterally and conjunctivae normal Neck no lymphadenopathy Lymph Lymphatic: no lymphadenopathy noted Chest inspection of chest normal Resp normal respiratory effort and clear to auscultation bilaterally Cardio regular rate, regular rhythm, S1 normal heart sound, S2 normal heart sound and no murmurs GI normal to inspection, nondistended, normoactive bowel sounds no CVA tenderness Extremity normal to inspection Skin no rashes or lesions noted Neuro oriented x3 and no sensory deficits noted Sensorium / Orientation: awake and alert Psych affect normal ABG / Lab / Microbiology Data Result Diagrams: 10/24/20 15:20 10/24/20 15:20 Laboratory: Laboratory Results - last 24 hr 10/24/20 10/24/20 10/24/20 15:20 15:20 15:20 WBC 7.1 RBC 4.44 Hgb 13.2 Hct 41.3 MCV 93.0 MCH 29.7 MCHC 32.0 RDW Std Deviation 47.0 H RDW Coeff of Raven 13.7 Plt Count 288 MPV 9.1 Immature Gran % (Auto) 0.300 Neut % (Auto) 52.1 Lymph % (Auto) 33.6 Posey % (Auto) 7.9 Eos % (Auto) 5.5 H Baso % (Auto) 0.6 Absolute Neuts (auto) 3.7 Absolute Lymphs (auto) 2.39 Nucleated RBC % 0 D-Dimer Quant (PE/DVT) 0.53 H* Sodium 136 Potassium 3.8 Chloride 100 Carbon Dioxide 30.0 Anion Gap 6 BUN 21 H Creatinine 0.83 Estim Creat Clear Calc 46.95 Est GFR (MDRD) Af Amer 86 Est GFR (MDRD) Non-Af 71 BUN/Creatinine Ratio 25.3 H Glucose 84 Calcium 8.9 Troponin I < 0.015 B-Natriuretic Peptide Triglycerides Cholesterol LDL Cholesterol VLDL Cholesterol HDL Cholesterol 10/24/20 10/24/20 10/24/20 15:20 19:12 21:30 WBC RBC Hgb Hct MCV MCH MCHC RDW Std Deviation RDW Coeff of Raven Plt Count MPV Immature Gran % (Auto) Neut % (Auto) Lymph % (Auto) Posey % (Auto) Eos % (Auto) Baso % (Auto) Absolute Neuts (auto) Absolute Lymphs (auto) Nucleated RBC % D-Dimer Quant (PE/DVT) Sodium Potassium Chloride Carbon Dioxide Anion Gap BUN Creatinine Estim Creat Clear Calc Est GFR (MDRD) Af Amer Est GFR (MDRD) Non-Af BUN/Creatinine Ratio Glucose Calcium Troponin I < 0.015 < 0.015 B-Natriuretic Peptide 107.6 H Triglycerides Cholesterol LDL Cholesterol VLDL Cholesterol HDL Cholesterol 10/25/20 05:40 WBC RBC Hgb Hct MCV MCH MCHC RDW Std Deviation RDW Coeff of Raven Plt Count MPV Immature Gran % (Auto) Neut % (Auto) Lymph % (Auto) Posey % (Auto) Eos % (Auto) Baso % (Auto) Absolute Neuts (auto) Absolute Lymphs (auto) Nucleated RBC % D-Dimer Quant (PE/DVT) Sodium Potassium Chloride Carbon Dioxide Anion Gap BUN Creatinine Estim Creat Clear Calc Est GFR (MDRD) Af Amer Est GFR (MDRD) Non-Af BUN/Creatinine Ratio Glucose Calcium Troponin I B-Natriuretic Peptide Triglycerides 64 Cholesterol 165 LDL Cholesterol 98 VLDL Cholesterol 13 HDL Cholesterol 54 Microbiology: Microbiology 10/24/20 15:55 SARS-CoV-2 Antigen (Rapid) - Final Nasal Secretion Microbiology 10/24/20 15:55 Nasal Secretion SARS-CoV-2 Antigen (Rapid) - Final Radiography Diagnostic Testing: Radiology Impression Chest X-Ray 10/24/20 15:26 IMPRESSION: Stable examination. No acute abnormality is seen. Electronically Signed: Michael Dailey MD at 15:34 EDT , Service support , D/C Instructions Discharge Diet: No restrictions Discharge Activity: Return to Normal Activity Please Follow Up With: Serena Quiñonez When: 1 Week Meaningful Use Info Meaningful Use Diagnoses (Choose all that apply): None applicable Discharge Plan Admission Admit Date/Time: 10/24/20 17:40 Primary Reason for Your Visit: Chest pain, cardiac etiology ruled out Attending Provider: Bill Nicholson Primary Care Provider: Serena Quiñonez NP Instructions Patient Instructions: ED Chest Pain, Noncardiac Discharge Orders/Prescriptions Prescriptions: Continued levothyroxine 112 MCG tablet 112 mcg PO DAILY RF: 0 losartan 50 MG tablet 50 mg PO DAILY RF: 0 acetaminophen 650 MG tablet extended release 650 mg PO DAILY RF: 0 acetaminophen 650 MG tablet extended release 1,300 tab PO QHS RF: 0 tolterodine 4 MG capsule,extended release 24hr 4 mg PO DAILY RF: 0 aspirin 81 MG tablet,delayed release (DR/EC) 81 mg PO DAILY RF: 0 vit C,G-Ew-epdtg-lutein-zeaxan 1 EACH capsule 1 cap PO DAILY RF: 0 Referrals: CiSerena dumont NP, PHARMACY ORDER ENTRY TECHNICIAN-C [Primary Care Provider] - Disposition Patient Disposition: Home, self care Documented by User: Dr. Bill Nicholson MD 10/25/20 15:30 Providers Date of Admission: 10/24/20 Reason For Visit: CHEST PAIN Medications at Discharge Home Medications levothyroxine 112 mcg PO DAILY 08/14/15 acetaminophen 1,300 tab PO QHS 08/21/20 acetaminophen 650 mg PO DAILY 08/21/20 losartan 50 mg PO DAILY 08/21/20 aspirin 81 mg PO DAILY 10/24/20 tolterodine 4 mg PO DAILY 10/24/20 vit C,Q-Ne-dhrrk-lutein-zeaxan 1 cap PO DAILY 10/24/20 ABG / Lab / Microbiology Data Result Diagrams: 10/24/20 15:20 10/24/20 15:20 Discharge Plan Admission Admit Date/Time: 10/24/20 17:40 Primary Reason for Your Visit: Chest pain, cardiac etiology ruled out Attending Provider: Bill Nicholson Primary Care Provider: Serena Quiñonez NP Instructions Patient Instructions: ED Chest Pain, Noncardiac Discharge Orders/Prescriptions Prescriptions: Continued levothyroxine 112 MCG tablet 112 mcg PO DAILY RF: 0 losartan 50 MG tablet 50 mg PO DAILY RF: 0 acetaminophen 650 MG tablet extended release 650 mg PO DAILY RF: 0 acetaminophen 650 MG tablet extended release 1,300 tab PO QHS RF: 0 tolterodine 4 MG capsule,extended release 24hr 4 mg PO DAILY RF: 0 aspirin 81 MG tablet,delayed release (DR/EC) 81 mg PO DAILY RF: 0 vit C,Z-Pp-vzmcm-lutein-zeaxan 1 EACH capsule 1 cap PO DAILY RF: 0 Referrals: Serena Quiñonez NP, PHARMACY ORDER ENTRY TECHNICIAN-C [Primary Care Provider] - Disposition Patient Disposition: Home, self care Addendum: Dr. Nicholson I personally examined the patient and reviewed the chart. I agree with the above. 75-year-old female presented to the hospital with 4 days of chest pain. It was intermittent and did not radiate anywhere. She has noticed that it was mainly exertional but did occasionally occur at rest. She denies any shortness of breath and states that the chest pain is much improved today. She had 3 - troponins and a normal stress test. We discussed the plan for discharge with her today and she expressed understanding of the risks and benefits of going home and would like to go home today. She understands she is to follow-up with her PCP in 3 to 5 days for further follow-up and if she has any further chest pain that she is to return back to the hospital. OBSV E&M: 28333 Observation care discharge
[2020-10-25 13:12] VITALS: BP 139/61; PULSE 65; RESP 12; TEMP 36.7; O2SAT 98
--- NOTE | 2020-10-25 13:29 | CHAPLAIN ---
Type of Pastoral Visit _x__ Initial Visit ___ Follow-up Visit ___ On-call Visit ___ General Patient Visit ___ Spiritual Assessment ___ Family Conference ___ Bereavement ___ Rapid Response ___ Code Blue ___ Other (describe below) Pastoral Care Referral From _x__ Patient ___ Family ___ Nurse ___ Physician ___ Breaker Engineer ___ Chain Carrier ___ Other (describe below) Sacrament/Intervention _x__ Active listening ___ Anointing ___ Jew ___ Bereavement ___ Communion _x__ Mariia exploration ___ _x__ Life review _x__ Prayer ___ Reconciliation ___ Sacrament of Sick _x__ Supportive presence ___ Wedding ___ Other (describe below) Pastoral Comments
--- NOTE | 2020-10-25 14:19 | PHA.DC.MR ---
Pharmacy Service has performed discharge medication reconciliation for this patient. The patient's discharge medication list was reviewed for discrepancies and discrepancies were resolved. Home Medications levothyroxine 112 mcg PO DAILY 08/14/15 acetaminophen 1,300 tab PO QHS 08/21/20 acetaminophen 650 mg PO DAILY 08/21/20 losartan 50 mg PO DAILY 08/21/20 aspirin 81 mg PO DAILY 10/24/20 tolterodine 4 mg PO DAILY 10/24/20 vit C,X-Gl-ahodq-lutein-zeaxan 1 cap PO DAILY 10/24/20
== END 2020-10-25 13:08 | disposition home or self-care (01) ==
LOC: ED 15:37 → PCU 17:45
PROVIDERS: Admitting Provider Hospitalist; Emergency Provider Emergency Medicine; PCP Nurse Practitioner; Visit Provider Family Medicine
DX: R07.89 Other chest pain (principal); R42 Dizziness and giddiness; R53.83 Other fatigue; R06.02 Shortness of breath; R11.0 Nausea; E03.9 Hypothyroidism, unspecified; I10 Essential (primary) hypertension; R79.89 Other specified abnormal findings of blood chemistry; Z79.899 Other long term (current) drug therapy; Z79.82 Long term (current) use of aspirin
CPT/HCPCS: 36415; 71045; 78452; 80048; 80061; 83880; 84484; 85025; 85379; 87426; 93005; 93017; 96361; 96374; 96375; 99218; 99285; A9500; J7030; A4216; G0378; J2405; J2785

== ENCOUNTER → 2020-10-31 12:59 | Outpatient (CLI) | payer MEDICARE, SELFPAY ==
[2020-10-24 18:23] VITALS: BMI 36.8
[2020-10-31 13:44] LABS: Erythrocyte Sedimentation Rate 5 mm/hr (0-30)
[2020-10-31 14:00] LABS: D-Dimer Quantitative (DVT/PE) 0.77 FEU/ug/m (0.27-0.49)
[2020-10-31 14:17] LABS: CRP < 2.90 mg/L (0.0-3.0); Thyroid Stim Hormone (TSH) 2.94 uIU/mL (0.358-3.74)
== END ==
PROVIDERS: PCP Nurse Practitioner; Referring Provider Nurse Practitioner; Visit Provider Nurse Practitioner
DX: R06.02 Shortness of breath (principal)
CPT/HCPCS: 84443; 85379; 85652; 86140

== ENCOUNTER → 2020-10-31 14:33 | Outpatient (CLI) | payer MEDICARE, SELFPAY ==
[2020-10-24 18:23] VITALS: BMI 36.8
--- NOTE | 2020-10-31 14:35 | CT_ITS ---
STUDY: CTA CHEST REASON FOR EXAM: Female, 75 years old. ELEVATED DDIMER. Shortness of breath. RADIATION DOSAGE (If Supplied By Facility): CTDIvol = ( 12.14 ) mGy, DLP = ( 340.81 ) mGycm TECHNIQUE: The examination was performed with the intravenous administration of IV 100mL Isovue-370. Post-processing of the angiographic images was performed, with multiplanar reformation and 3D reconstruction. Individualized dose optimization techniques were used for this CT. COMPARISON: Comparison is made with prior study dated 08/14/2015. FINDINGS: Normal enhancement of the main pulmonary artery and right and left pulmonary arteries. Normal enhancement of the bilateral peripheral pulmonary arteries. There is no demonstrated pulmonary embolism. Normal thoracic aorta and visualized great vessels. There is no demonstrated aortic dissection. Normal heart and pericardium. Normal mediastinum. Normal hilar regions. Normal visualized trachea and bronchi. The lungs are well expanded. Normal pulmonary parenchyma. Normal pleura. Normal chest wall structures. There are degenerative changes of thoracic spine. Small hiatal hernia. CT/CTA Chest W/WO Contrast IMPRESSION: Normal CTA chest examination, without a demonstrated pulmonary embolism or arterial dissection. Electronically Signed: Michael Dailey MD at 15:07 EDT , Service support ,
== END ==
PROVIDERS: PCP Nurse Practitioner; Referring Provider Nurse Practitioner; Visit Provider Nurse Practitioner
DX: R79.1 Abnormal coagulation profile (principal); R06.02 Shortness of breath
CPT/HCPCS: 71275; 84443; 85379; 85652; 86140; Q9967

== ENCOUNTER 2021-01-06 08:16 | Day surgery (SDC) | payer MEDICARE, SELFPAY ==
[2020-12-28 08:41] VITALS: BMI 37.0
[2020-12-30 10:11] LABS: Absolute Lymphocyte Count 2.19 X10^3/uL (0.83-4.51); Absolute Neutrophil Count 2.8 X10^3/uL (2.0-7.7); Basophil# 0.04 X10^3/uL; Basophil% 0.7 % (0-1); Eosinophil# 0.25 X10^3/uL; Eosinophils% 4.2 % (0-5); Hematocrit 45.5 % (37-47); Hemoglobin 14.5 g/dL (12.0-15.0); Lymphocyte # 2.19 X10^3/ul (0.83-4.51); Mean Corp Hgb Conc 31.9 g/dL (32-36); Mean Corpuscular Hgb 28.8 pg (27.0-32.0); Mean Corpuscular Volume 90.3 fL (81-99); Mean Platelet Vol. 8.8 fl (6.2-12.0); Monocyte# 0.62 X10^3/uL; Monocyte% 10.5 % (0-10); NRBC Flagged by Analyzer 0 % (0-5); Neutrophil # 2.81 X10^3/uL (2.7-7.7); Neutrophil % 47.4 % (47-70); Platelet Count 250 K/mm3 (150-450); RBC Distribution Width CV 13.2 % (11.6-14.6); RBC Distribution Width SD 43.7 fl (35.1-43.9); Red Blood Count 5.04 M/mm3 (4.2-5.4); White Blood Count 5.9 K/mm3 (4.4-11.0)
[2020-12-30 10:55] LABS: Anion Gap 5 (5-15); BUN 19 mg/dL (7-18); Calcium,Total 9.8 mg/dL (8.5-10.1); Chloride 104 mmol/L (98-107); Creatinine, Serum 0.76 mg/dL (0.55-1.02); EST Glomerular Filtration Rate 79 mL/min (>60); Est Glom Filt Rate - Afr Amer 95 mL/min (>60); Glucose 80 mg/dL (74-106); Potassium 4.3 mmol/L (3.5-5.1); Sodium Level 139 mmol/L (136-145); Thyroid Stim Hormone (TSH) 0.38 uIU/mL (0.358-3.74)
[2021-01-04 13:46] VITALS: BMI 37.0
--- NOTE | 2021-01-06 11:04 | CL.D_ITS ---
Patient Name: MAURICIO SERRANO Study Date: 01/06/2021 Performing: Jace Carlin MD Ht: 62.99 inches 160 cm : 1945 Wt: 209.44 lbs 95 kg Age: 75 Gender: female BSA: 1.97 PROCEDURE(S) PERFORMED OG01-GNH/COR/LV CLINICAL PROFILE AND INDICATIONS Indications: Suspected CAD Heart Failure: None Stress/Imaging Date: 11/28/20 CAD Presentations: Stable angina. CONCLUSIONS Non obstructive coronary arteries RECOMMENDATIONS Medical therapy DESCRIPTION OF PROCEDURE The patient arrived to the procedure lab. The risks and benefits of the procedure as well as a full d escription of our services here and current unavailability of surgical backup were fully explained to the patient and/or their significant other prior to the catheterization. The Timeout was completed, verifying the correct patient and procedure. The patient's procedural site was prepped and draped in the usual fashion. Local anesthetic was given subcutaneously to right radial region with Lidocaine 2% . Using a modified Seldinger technique, arterial access was obtained via the right radial artery, a 6 Fr sheath was inserted. Left Coronary Artery selective angiography was performed in multiple views u sing a 5 Fr. 4.0 [place] catheter. Right Coronary Artery selective angiography was then performed in mu ltiple views using a 5 Fr. 4.0 [place] catheter. Left Ventriculography was performed in JONES projection using a 5 Fr. Pig[place] catheter. LV to AO pullback pressures were then recorded.The arterial sheath was pulled and a TR Band was applied for hemostasis 12ml air CORONARY ANGIOGRAPHY DOMINANCE: Right Dominant LEFT HEART ASSESSMENT Left Ventricular Ejection Fraction: by LV Gram 60 % Normal LV wall motion Normal Left Ventricular systolic function LEFT MAIN: No significant disease noted LEFT ANTERIOR DESCENDING ARTERY: No significant disease noted CIRCUMFLEX ARTERY: Mild luminal irregularities less than 30% RIGHT CORONARY ARTERY: No significant disease noted COMPLICATIONS No Complications PROCEDURE MEDICATIONS Versed 1 mg IV Fentanyl 50 mcg IV Oxygen: 2 L/min via nasal cannula Heparin given IA 01/06/2021 10:46:19 Verapamil 2.5mg, Ntg 100mcgs, 3000 units of Heparin given IA 01/06/2021 10:46:19 SUMMARY OF HEMODYNAMIC DATA Time AIR REST ECG 08:35:23 AO 130/67 (94) SA 10:48:45 AO 124/63 (90) 10:50:08 LV 119/1, 6 10:55:42 LV 126/2, 7 10:55:49 LV 115/4, 14 10:56:27 LV 119/6, 10 10:56:34 LVp 118/9, 23 10:56:37 AOp 123/56 (88) 10:56:42 RM AIR REST 11:03:32 Signed By Jace Carlin MD On 01/06/2021 11:04:09 AM Jace Carlin MD
== END 2021-01-06 12:50 | disposition home or self-care (01) ==
PROVIDERS: PCP Nurse Practitioner; Referring Provider Internal Medicine Cardiovascular Disease; Visit Provider Internal Medicine Cardiovascular Disease
DX: I25.118 Atherosclerotic heart disease of native coronary artery with other forms of angina pectoris (principal); I10 Essential (primary) hypertension; E78.5 Hyperlipidemia, unspecified; E03.9 Hypothyroidism, unspecified; M19.90 Unspecified osteoarthritis, unspecified site; F32.9 Major depressive disorder, single episode, unspecified; F41.9 Anxiety disorder, unspecified; K21.9 Gastro-esophageal reflux disease without esophagitis; E66.9 Obesity, unspecified; Z79.899 Other long term (current) drug therapy; Z86.711 Personal history of pulmonary embolism
CPT/HCPCS: 36415; 80048; 84443; 85025; 93458; 99152; 99153; J7040; Q9967; C1769; C1894

== ENCOUNTER → 2021-01-13 13:36 | Outpatient (CLI) | payer MEDICARE, SELFPAY ==
[2021-01-04 13:46] VITALS: BMI 37.0
== END ==
PROVIDERS: PCP Nurse Practitioner; Referring Provider Internal Medicine Cardiovascular Disease; Visit Provider Internal Medicine Cardiovascular Disease
DX: R09.89 Other specified symptoms and signs involving the circulatory and respiratory systems (principal); R29.898 Other symptoms and signs involving the musculoskeletal system; S55.101A Unspecified injury of radial artery at forearm level, right arm, initial encounter
CPT/HCPCS: 93931

== ENCOUNTER → 2021-02-21 08:26 | Outpatient (CLI) | payer MEDICARE, SELFPAY ==
[2021-01-04 13:46] VITALS: BMI 37.0
--- NOTE | 2021-02-21 08:29 | BI_ITS ---
MAMMOGRAPHY - BILATERAL SCREENING REASON FOR EXAM: Female, 75 years old. Routine annual screening examination. PERTINENT HISTORY: Sisters with breast cancer. TECHNIQUE: Digital bilateral breast kandi (3D mammographic acquisition) in the CC and MLO projections. 2-D mediolateral oblique (MLO) and craniocaudad (CC) views of both breasts were obtained. CAD: Full Field Digital Mammography with Computer Added Detection was performed. COMPARISON: Comparison is made with prior study dated 05/29/2018 and 11/13/2016. FINDINGS: Breast Composition: There are scattered areas of fibroglandular density. There are no dominant masses or suspicious calcifications. Stable secretory calcifications in the left breast. No other significant abnormalities are identified. There has been no significant change since the prior study. BI/SCRN MAMM (CAD)W/KANDI BILAT IMPRESSION: Stable bilateral screening mammogram. Yearly follow-up mammogram recommended. (A) ASSESSMENT CATEGORY: BIRADS Category 2: Benign. A letter regarding these results will be sent to the patient by the facility within 30 days. Approximately 10% of breast cancers are not detected by mammography. A normal mammogram should not delay biopsy of a clinically suspicious abnormality. [id number] Electronically Signed: Michael Dailey MD at 10:22 EDT , Service support ,
--- NOTE | 2021-02-21 09:01 | BD_ITS ---
STUDY: DUAL ENERGY X-RAY ABSORPTIOMETRY / DXA REASON FOR EXAM: Female, 75 years old. Z780. Patient is postmenopausal. TECHNIQUE: Bone Mineral Density (BMD) measurements of lumbar spine and bilateral hips were obtained. COMPARISON: Comparison is made with prior study of 11/13/2016. FINDINGS: Lumbar Spine (L1-L4): g/cm2 (1.247) / T-score (1.8) / Z-score (4.4) Findings are suggestive of normal bone density with a low fracture risk. Left Femur Total: g/cm2 (0.913) / T-score (-0.2) / Z-score (1.7) Left Femoral Neck: g/cm2 (0.643) / T-score (-1.9) / Z-score (0.3) Right Femur Total: g/cm2 (0.920) / T-score (-0.2) / Z-score (1.7) Right Femoral Neck: g/cm2 (0.668) / T-score (-1.6) / Z-score (0.6) The T-Scores on the most recent prior examination were: Lumbar Spine (L1-L4): There has been worsening of bone density since the previous examination. Left Femur Total: which represents an improvement of 5%. Right Femur Total: which represents a worsening of 4.5%. BD/Dexa Bone Density Study IMPRESSION: The patient is considered osteopenic as outlined below according to World Ronaldo Organization (WHO) criteria with a moderate fracture risk. There has been worsening of bone density since the previous examination. Reference Information: The T-score is the number of standard deviations above or below the standard which is normal for young adults at their peak bone mineral density. The World Health Organization (WHO) interprets the T-scores as follows: Above -1 Normal bone density Between -1 and -2.5 Osteopenia Equal to / or below -2.5 Osteoporosis As a practical clinical guideline, osteopenia may be graded as follows: Mild -1 through -1.5 Moderate -1.6 through -2.0 Severe -2.1 through -2.4 The Z-score is the number of standard deviations above or below age-matched controls. A Z-score of less than -1.5 would be considered abnormal. References: 1. NIH Osteoporosis and Related Bone Diseases www osteo.org 2. International Society for Clinical Densitometry www iscd.org 3. National Osteoporosis Foundation www nof.org Electronically Signed: Michael Dailey MD at 14:37 EDT , Service support ,
== END ==
PROVIDERS: PCP Nurse Practitioner; Referring Provider Nurse Practitioner; Visit Provider Nurse Practitioner
DX: Z13.820 Encounter for screening for osteoporosis (principal); Z78.0 Asymptomatic menopausal state; Z12.31 Encounter for screening mammogram for malignant neoplasm of breast; Z80.3 Family history of malignant neoplasm of breast
CPT/HCPCS: 77063; 77067; 77080

== ENCOUNTER 2021-12-04 10:30 | Outpatient (RCR) | payer MEDICARE, SELFPAY ==
--- NOTE | 2021-10-25 08:49 | HP.OTEVAL ---
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 Date of Evaluation: 10/18/21 Occupational Therapist: Zenobia Pisano, SANGEETA/Aretha, CHT - Subjective Pt. 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 Pt had cmc arthoplasty 09-26-21, 3 weeks a go. Thumb pain 6 weeks before went to [facility] and got a brace, went to urgent care at [facility] got a firm brace for a week and a half then before sx. Pt. reporting long thumb spica orthoses is not comfortable. (therapist will adj to increase comfort). Due to recent sx pt is limited with ADls and IADls at this time- pt would like to return to her PLOF with ADls and IADls - ADLs Dressing: Bra Kitchen: Open jars, Open bottle caps Comments: R hand dominant. Hardest thing to do is putting bra on. Requires assist to opening jars. December 28 pt. wants to make the [place] [employer] for [employer]. Pt. stating it took her 2 hours to get ready today, prior to sx. only 1 hour. Spring loaded. Has a cleaning person. [place], . - Pain Right Hand 1 Pain Intensity Range: 10 - ROM Forearm: R Supination is decreased 65* L 90* Wrist: L ext 30/45* of flexion - right WNL CMC: L 10* right 5* MP: L 45* right 20* IP: L 65* Right 45* - Strength Shoulder: B Fair+ Elbow: L fair+ Transportation Consultant: L 40# Tripod Pinch: L 14# Tip-to-Tip Pinch: L 13# Strength Comments: will assess R strength at a later date. Do not do lateral pinch with R hand. - Edema Other: minimal edema in R forearm/hand - Sensation Sensation Comments: Pt. reported no deficits with sensation - Quick DASH-Disab of Arm,Shoulder& Hand Quick DASH Score: 80.0000 - Goals Goal:: Pt. to increase R hand experimental welder strength to 40# to complete functional experimental welder on household items to open/close by dc. Goal:: Pt. to increase R wrist flexion/extension, and R forearm supination/pronation to increase independence with ADL's (dressing) and IADL's by dc. Goal:: Pt. will report pain level <3 during sR thumb stretches and exercises by dc. Goal:: Pt. will report no difficulties related to UB/LB dressing with use of R hand manipulating fasteners by dc. Goal:100% adherence to protocol: Yes Comment: CMC arthroplasty Goal:Daily scar massage when approriate: Yes Goal:ROM equal to unaffected hand: Yes Goal:Transportation Consultant/Pinch strength at least 75% of unaffected hand: Yes Goal:No pain with affected hand use: Yes Goal:Full use of affected hand in daily activities including: Yes - Rehabilitation General Assessment: Pt. has been referred for arthritis of carpometacarpal (CMC) joint of right thumb, she had Right thumb CMC arthroplasty w/ FCR tendon interposition & first dorsal compartment on 09-20-21, this is week 4 post op. Pt. has decreased R wrist flexion/extension, decreased thumb strength for ADLs and IADLs such as kitchen prep tasks. Mariposa will benefit from skilled OT services 1-2x week for 6 weeks to increase ROM and strength of R hand for increasing indep with ADL's and IADL's.pt demo understanding and agree to POC. Therapy session was directly supervised and doc. reviewed and approved by Zenobia Pisano OTR/Aretha,CHT. Rehabilitation Potential: Good - Anticipated Interventions A/AAROM/PROM, Strengthening, Scar Care, Modalities, Orthoses, Joint Protection/Energy Conservation, Ergonomic Education, Fine Motor Coord/Wang, ADL Training, Education re assistive Equipment, Education re Diagnosis, Education re Self Massage Techniques, Education re Correct Donning Tech,Care&Wearing Sched Comp Garments, Home Program - Visit Plan Frequency: 2x /Week Duration: 6 Weeks General Plan: Will follow CMC arthroplasty protocol stretches and strengthening (called office for specific protocol), for now using the [place] [facility] protocol on p. 35-38. TEXT: Thank you for the opportunity to evaluate your patient. For Medicare and Medicare HMO plans, please review the plan of care and approve it. It will need to be FAXED BACK to us at [phone] for Medicare purposes. Please let me know if there are questions or concerns regarding this plan of care. Physician Signature: Date:
--- NOTE | 2022-04-03 13:22 | HP.OT.NRP ---
MAURICIO SERRANO was seen in my office for initial evaluation on 10/18/21. The following Plan of Care was established for this patient: Initial Frequency: 2x /Week Initial Duration: 6 Weeks Plan: continue hand strengthening for R hand. Anticipated Interventions: A/AAROM/PROM, Strengthening, Scar Care, Modalities, Orthoses, Joint Protection/Energy Conservation, Ergonomic Education, Fine Motor Coord/Wang, ADL Training, Education re assistive Equipment, Education re Diagnosis, Education re Self Massage Techniques, Education re Correct Donning Tech,Care&Wearing Sched Comp Garments, Home Program This patient was last seen in our office 12/04/21. Pertinent comments regarding their Occupational therapy will appear below: pt was seen for 11 OT visits following cmc arthroplasty- pt has returned to work and was reporting good ability- pt has not scheduled further apts and due to time lapse in care pt d/c. At this point I will be discontinuing this patient from occupational therapy. I would be happy to see this patient again in the future if found appropriate by the physician. Thank you! Zenobia Pisano, OTR/L, CHT
== END 2021-12-04 19:00 | disposition home or self-care (01) ==
LOC: OT 10:30
PROVIDERS: PCP Nurse Practitioner
DX: M18.11 Unilateral primary osteoarthritis of first carpometacarpal joint, right hand (principal)
CPT/HCPCS: 97110; 97140; 97165; 97530; 97760

== ENCOUNTER → 2022-01-31 | Outpatient (CLI) | payer MEDICARE, SELFPAY ==
--- NOTE | 2022-01-31 08:29 | VDLE_ITS ---
Reason For Study: LLE edema RIGHT LEFT CFV is compressible, spontaneous, phasic, GSV is normal. competent and demonstrates normal CFV is compressible, spontaneous, phasic, augmentation. competent, and demonstrates normal Procedure augmentation. This is a venous duplex using B-mode, color FV is compressible, spontaneous, phasic, flow and spectral Doppler. competent and demonstrates normal Exam performed in department. augmentation. The exam was diagnostic. POP V is compressible, spontaneous, phasic, A preliminary report was called and/or faxed competent and demonstrates normal to Esthela Newell FINE ARTS CHAIR-C @[phone] @ 8:45 augmentation. am. T/P Trunk is compressible. PTV is compressible. LT PerV is compressible. VL/Venous Duplex US, Unilateral Interpretation Summary Deep veins of the left lower extremity are patent and compressible segmentally. There is no evidence of left lower extremity deep vein thrombosis. The left great saphenous vein sofiya ears patent and compressible segmentally. Ordering Physician: Esthela Newell Referring Physician: Esthela Newell Performed By: Emma Carty, LEE, RVT
== END | disposition home or self-care (01) ==
LOC: CVS 07:52
PROVIDERS: PCP Nurse Practitioner; Referring Provider Nurse Practitioner Family; Visit Provider Nurse Practitioner Family
DX: R60.0 Localized edema (principal)
CPT/HCPCS: 93971

== ENCOUNTER → 2022-08-27 | Outpatient (CLI) | payer MEDICARE, SELFPAY ==
--- NOTE | 2022-08-27 12:51 | BI_ITS ---
MAMMOGRAPHY - BILATERAL SCREENING REASON FOR EXAM: Female, 77 years old. Routine annual screening examination. PERTINENT HISTORY: Non-contributory. TECHNIQUE: Digital bilateral breast kandi (3D mammographic acquisition) in the CC and MLO projections. 2-D mediolateral oblique (MLO) and craniocaudad (CC) views of both breasts were obtained. CAD: Full Field Digital Mammography with Computer Added Detection was performed. COMPARISON: Comparison is made with prior study dated 02/21/2021 and 05/29/2018. FINDINGS: Breast Composition: There are scattered areas of fibroglandular density. There are no dominant masses or suspicious calcifications. Stable secretory calcifications in both breasts more prominent in the right breast. No other significant abnormalities are identified. There has been no significant change since the prior study. BI/SCRN MAMM (CAD)W/KANDI BILAT IMPRESSION: Stable bilateral screening mammogram. Yearly follow-up mammogram recommended. (A) ASSESSMENT CATEGORY: BIRADS Category 2: Benign. A letter regarding these results will be sent to the patient by the facility within 30 days. Approximately 10% of breast cancers are not detected by mammography. A normal mammogram should not delay biopsy of a clinically suspicious abnormality. [id number] Electronically Signed: Michael Dailey MD at 14:22 EST ,
== END | disposition home or self-care (01) ==
LOC: OPBI 12:49
PROVIDERS: PCP Nurse Practitioner; Visit Provider Nurse Practitioner Family
DX: Z12.31 Encounter for screening mammogram for malignant neoplasm of breast (principal)
CPT/HCPCS: 77063; 77067

== ENCOUNTER → 2022-12-20 | Outpatient (CLI) | payer MEDICARE, OTHER, SELFPAY ==
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
== END | disposition home or self-care (01) ==
LOC: MRI 10:49
PROVIDERS: PCP Nurse Practitioner Family; Referring Provider Orthopaedic Surgery; Visit Provider Orthopaedic Surgery
DX: M47.812 Spondylosis without myelopathy or radiculopathy, cervical region (principal)
CPT/HCPCS: 72141

== ENCOUNTER → 2023-02-18 | Outpatient (CLI) | payer MEDICARE, SELFPAY ==
--- NOTE | 2023-02-18 09:59 | RAD_ITS ---
STUDY: X-RAY - LUMBAR SPINE REASON FOR EXAM: Female, 77 years old. Low back pain potentially associated with radiculopathy. TECHNIQUE: 3 view(s) of the lumbar spine were obtained. COMPARISON: None FINDINGS: Osteopenia. Normal lumbar lordosis. Mild thoracolumbar scoliosis. 13 mm of anterolisthesis of L5 on S1. Diffuse lower thoracic and lumbosacral facet sclerosis. Diffuse intervertebral disc space narrowing with osteophytes most marked at L1-2, L2-3 and L5-S1. Vascular calcification. RAD/Lumbar Spine 2 or 3 Views IMPRESSION: Osteopenia with diffuse mild lumbosacral spondylosis as described. No acute abnormality or erosive changes. Electronically Signed: Isaac Spence MD at 12:59 EDT ,
== END | disposition home or self-care (01) ==
LOC: RAD 09:55
PROVIDERS: PCP Nurse Practitioner Family; Referring Provider Nurse Practitioner Family; Visit Provider Nurse Practitioner Family
DX: M54.50 Low back pain, unspecified (principal)
CPT/HCPCS: 72100

== ENCOUNTER → 2023-02-25 | Outpatient (CLI) | payer MEDICARE, SELFPAY ==
--- NOTE | 2023-02-25 10:04 | ART_ITS ---
Reason For Study: CLAUDICATION Procedure A bilateral lower extremity continuous wave Doppler with analog waveform analysis,segmental pressures,and ankle brachial indexes without exercise. Unable to exercise patient as per order due to she was unsteady on her feet. Was not comfortable putting her on the treadmill due to balance issues. Left Segmental Pressures Left brachial= 139mmHg. Left posterior tibial artery = 169mmHg. Left dorsalis pedis artery = 179mmHg. The left posterior tibial artery waveforms are triphasic. The left dorsalis pedis waveforms are triphasic. Right Segmental Pressures Right brachial= 128mmHg. Right posterior tibial artery = 167mmHg. Right dorsalis pedis artery = 170mmHg. The right posterior tibial artery waveforms are triphasic. The right dorsalis pedis waveforms are triphasic. Indices The right resting ankle brachial index is 1.22. The right ankle brachial index by the posterior tibial artery is 1.20. The right ankle brachial index by the dorsalis pedis is 1.22. The left resting ankle brachial index is 1.29. The left ankle brachial index by the posterior tibial artery is 1.22. The left ankle brachial index by the dorsalis pedis is 1.29. VL/Lower Ext Art Exam w/ Exercise Interpretation Summary Right NELSON 1.22, normal. Doppler/PVR waveforms of the right leg normal at rest. Left NELSON 1.29, normal. Doppler/PVR waveforms of the left leg normal at rest. Ordering Physician: Ava Newell Referring Physician: AVA NEWELL VOCATIONAL INSTRUCTOR Performed By: Emma Carty RVT, RDCS
== END | disposition home or self-care (01) ==
PROVIDERS: PCP Nurse Practitioner Family; Referring Provider Nurse Practitioner Family; Visit Provider Nurse Practitioner Family
DX: I73.9 Peripheral vascular disease, unspecified (principal)
CPT/HCPCS: 93924

== ENCOUNTER → 2023-04-15 | Outpatient (CLI) | payer MEDICARE, SELFPAY ==
--- NOTE | 2023-04-15 10:41 | ECHOD_ITS ---
Reason For Study: Localized Edema Procedure This was a 2D Doppler, Color Flow transthoracic echocardiogram. Exam performed in department. Left Ventricle Normal LV size. The estimated ejection fraction is 60 %. No evidence for diastolic dysfunction. No regional wall motion abnormalities noted. Right Ventricle Normal RV size. Normal systolic function. Atria The left atrium is mildly enlarged. Normal right atrium. No doppler evidence for ASD. Mitral Valve There is no mitral valve stenosis. Mild (1+) mitral valve insufficiency. Tricuspid Valve There is no tricuspid stenosis. Mild tricuspid valve insufficiency. Pulmonary artery systolic pressure is 25 mmHg. Aortic Valve Trisinus/trileaflet aortic valve. There is no aortic stenosis. No aortic valve insufficiency. Pulmonic Valve There is no pulmonic valvular stenosis. No pulmonic valve insufficiency. Great Vessels Normal aortic root. Pericardium/Pleural No pericardial effusion. MMode/2D Measurements & Calculations LVIDd: 5.1 cm IVSd: 0.80 cm Ao root diam: 3.0 cm LVIDs: 3.1 cm LVPWd: 0.93 cm RVDd: 3.3 cm FS: 39.8 % LAV(MOD-bp): 56.3 ml LVAd ap4: 25.1 cm2 SV(MOD-sp4): 47.8 ml LAV(MOD-bp) Indexed: 27.7 ml/m2 LVLd ap4: 7.4 cm LAV(MOD-sp2): 57.0 ml EDV(MOD-sp4): 70.5 ml LAV(MOD-sp4): 53.9 ml EDV(sp4-el): 71.8 ml LVAs ap4: 12.1 cm2 LVLs ap4: 5.5 cm ESV(MOD-sp4): 22.7 ml ESV(sp4-el): 22.6 ml EF(MOD-sp4): 67.8 % EF(sp4-el): 68.6 % SV(sp4-el): 49.3 ml LA A4 area: 20.1 cm2 LA dimension(2D): 4.4 cm RA A4 area: 11.4 cm2 TAPSE: 2.1 cm Time Measurements MV dec time: 0.23 sec Doppler Measurements & Calculations MV E max khari: 76.1 cm/sec Lat Peak E' Khari: 6.3 cm/sec Med Peak E' Khari: 5.2 cm/sec MV A max khari: 97.1 cm/sec E/E' lat: 12.0 E/E' med: 14.5 MV E/A: 0.78 Ao V2 max: 121.1 cm/sec LV V1 max: 108.4 cm/sec MV dec slope: 327.8 cm/sec2 Ao max P.9 mmHg LV V1 max P.7 mmHg Ao V2 mean: 90.6 cm/sec Ao mean P.5 mmHg Ao V2 VTI: 31.0 cm PA V2 max: 80.4 cm/sec TR max khari: 247.4 cm/sec TR max P.5 mmHg ECHO/Echo Complete Interpretation Summary The estimated ejection fraction is 60 %. No evidence for diastolic dysfunction. The left atrium is mildly enlarged. Mild (1+) mitral valve insufficiency. Ordering Physician: Esthela Newell Referring Physician: Esthela Newell Performed By: Danielle Sutherland, LEE, RVT
== END | disposition home or self-care (01) ==
LOC: CVS 10:40
PROVIDERS: PCP Nurse Practitioner Family; Referring Provider Nurse Practitioner Family; Visit Provider Nurse Practitioner Family
DX: R60.0 Localized edema (principal)
CPT/HCPCS: 93306

== ENCOUNTER 2023-06-22 17:22 | Emergency (ER) | payer MEDICARE, SELFPAY ==
[2023-06-22 17:23] VITALS: BP 151/75; PULSE 88; RESP 20; TEMP 36.3; O2SAT 95; BMI 42.1
[2023-06-22 17:39] VITALS: O2SAT 93
--- NOTE | 2023-06-22 23:33 | EDS_ITS ---
HPI History of Present Illness Chief Complaint: Shortness of Breath Narrative Narrative: 77-year-old female presenting with shortness of breath and debility. Patient diagnosed with COVID on . She has been having symptoms since Saturday. She is symptoms of fevers, chills, cough, dyspnea. No chest pain. Patient reports to me that she is drinking plenty of fluids and making plenty of urine. She has been drinking protein drinks as well. Patient does have some generalized weakness however. She called the on-call physician who told her to come into the ER for fluids and breathing treatments. Patient does not feel like she is wheezing and does not have a history of asthma. She does state that she generally feels short of breath. [facility] Medical History Anxiety Decreased radial pulse Depression Elevated d-dimer Essential hypertension GERD (gastroesophageal reflux disease) History of pulmonary embolus (PE) Hyperlipidemia Hypothyroidism Injury of right radial artery Obesity Osteoarthritis Osteopenia Right hand weakness Superficial thrombophlebitis of left leg (08/2020) Venous insufficiency Home Medications losartan 50 mg tablet 50 mg PO DAILY BP 08/21/20 [History Last Taken 01/06/21] albuterol sulfate 90 mcg/actuation aerosol inhaler (ProAir HFA) 2 puff inhalation TID PRN Shortness Of Breath 12/21/20 [History Last Taken Unknown] calcium carbonate 500 mg-vitamin D3 3.125 mcg (125 unit) tablet 1 tab PO DAILY 12/21/20 [History Last Taken Unknown] polyethylene glycol 3350 17 gram oral powder packet (Miralax) 17 g PO DAILY 12/21/20 [History Last Taken Unknown] cyanocobalamin (vitamin B-12) 2,500 mcg tablet 2,500 mcg PO DAILY 12/28/20 [History Last Taken Unknown] levothyroxine 125 mcg tablet 125 mcg PO DAILY 12/28/20 [History Last Taken 01/06/21] pyridoxine (vitamin B6) 50 mg capsule (Vitamin B-6) 50 mg PO DAILY 12/28/20 [History Last Taken Unknown] collagen .Route 12/13/22 [History Last Taken Unknown] dqdfgdck-pue-tufyn5 250 mg-dha 90 mg-epa 160 lc-htpf-hjkr-zeax capsule (Ocuvite Adult 50 Plus) 1 cap PO DAILY 12/13/22 [History Last Taken Unknown] omeprazole 40 mg capsule,delayed release cap PO 12/13/22 [History Last Taken Unknown] tizanidine 4 mg tablet 4 mg PO 12/13/22 [History Last Taken Unknown] vibegron 75 mg tablet (Gemtesa) 75 mg PO 12/13/22 [History Last Taken Unknown] albuterol sulfate 5 mg/mL(0.5 %) solution for nebulization 2.5 mg (0.5 mL) inhalation Q4H PRN shortness of breath or wheezing #600 mL 06/22/23 [Rx Last Taken Unknown] benzonatate 200 mg capsule 200 mg PO TID PRN cough #20 caps 06/22/23 [Rx Last Taken Unknown] dexamethasone 6 mg tablet 6 mg PO DAILY #7 tabs 06/22/23 [Rx Last Taken Unknown] guaifenesin 1,200 mg tablet, extended release 12 hr 1,200 mg PO Q12H #20 tabs 06/22/23 [Rx Last Taken Unknown] ondansetron 4 mg disintegrating tablet 4 mg PO Q8H PRN PRN Nausea #20 tabs 06/22/23 [Rx Last Taken Unknown] Allergy/AdvReac Type Severity Reaction Status Date / Time propoxyphene Allergy Unknown Nausea Verified 06/22/23 17:25 [From Darvocet-N 100] celecoxib [From Celebrex] Allergy Other Verified 06/22/23 17:25 meloxicam Allergy Other Verified 06/22/23 17:25 metaxalone [From Skelaxin] Allergy Other Verified 06/22/23 17:25 Penicillins [PCN] Allergy Hives Verified 06/22/23 17:25 Sulfa (Sulfonamide Allergy Hives Verified 06/22/23 17:25 Antibiotics) tolterodine [From Detrol] AdvReac dizzy Verified 06/22/23 17:25 blurred vision Family History Mother Diabetes Hypertension Heart disease Had cardiac mass and had thoracotomy to remove mass Father CAD (coronary artery disease), Onset Age: 80 CABG Myocardial infarction, Onset Age: 80 Surgical History History of appendectomy History of colonoscopy History of colonoscopy with polypectomy (12/22/20) History of cystocele History of hysterectomy History of left heart catheterization (01/06/21) 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) Social History Smoking Status: Never smoker alcohol intake: never substance use type: does not use caffeine: Yes Type: tea Number of servings: 1 ROS ROS ED Constitutional Constitutional ED: Reports chills and fever(s); Denies sweats Eyes Eyes: Denies blurry vision or change in vision ENT ENT ED: Denies ear pain or sore throat Cardiovascular Cardiovascular: Denies chest pain, palpitations or racing heartbeat Respiratory/Chest Respiratory/Chest: Reports cough and dyspnea; Denies sputum Gastrointestinal Gastrointestinal: Denies abdominal pain, constipation, diarrhea, nausea or vomiting Genitourinary Genitourinary ED: Denies dysuria, hematuria or urinary frequency Musculoskeletal Musculoskeletal: Reports myalgias; Denies arthralgias or neck pain Integumentary Denies abscess, Abrasions or rash Neurologic Neurologic: Denies headache(s), paresthesias or weakness Psychiatric Psychiatric: Denies anxiety, depression, suicidal ideation or suicidal thoughts Endocrine Endocrinology: Denies polydipsia or polyuria EXAM Physical Exam Const Vital Signs: 06/22/23 17:23 06/22/23 17:43 Temperature 97.4 F L Temperature Source Temporal Pulse Rate 88 Respiratory Rate 20 H Respiratory Effort Short of Breath Respiratory Depth Normal Respiratory Pattern Normal Blood Pressure 151/75 H Blood Pressure Mean 100 Pulse Ox 95 Oxygen Delivery Method Room Air Room Air Positive well nourished General Appearance ED: NAD HEENT Reports moist mucous membranes Eyes PERRL and EOMs intact bilaterally General Eye ED: Negative for pale conjunctiva or scleral icterus Neck no lymphadenopathy Chest Wall inspection of chest normal Resp normal respiratory effort and clear to auscultation bilaterally Auscultation: Negative for rales, rhonchi or wheezes Cardio regular rate and regular rhythm GI normal to inspection, nondistended, normoactive bowel sounds Neuro oriented x3 and CN's II-XII intact bilaterally Sensorium / Orientation: alert Motor Exam: strength 5/5 throughout Psych mental status grossly normal MDM MDM MDM Narrative Medical decision making narrative: Patient presenting after being nice with COVID on . She has had 4 days of symptoms. Both she and her daughter state they do not want Paxlovid. Kimberly perez's vital signs are stable and she is afebrile. Although she feels generally weak she was able to get up and ambulate for me and she maintained a pulse ox of 94% on room air even while ambulating with a mask on. Her lungs are clear to auscultation. I do not auscultate any wheezing. She does not appear to be dehydrated she has moist mucous membranes and brisk cap refill conjunctiva are pink and moist I do not see evidence of anemia. I counseled both she and her daughter that I do not think they need IV fluids based on the history of drinking plenty of fluids and drinking protein drinks and making urine. I do not believe she needs breathing treatments as she is not wheezing. Given this I do not believe she needs steroids either. The daughter requests that I provide her with some albuterol nebulizers as she has a nebulizer at home that she can provide for her mother. I feel this is reasonable. She request that I give her some dexamethasone should she start to have some wheezing and I did provide this as well. I do believe she could benefit from some guaifenesin which I provided as well as Zofran as needed for nausea. Return precautions were discussed. Impression: 1. COVID-19 2. Weakness Discharge Plan Triage Chief Complaint: Shortness of Breath ED Provider: Dinesh Cano Dx/Rx/DC Orders Instructions: Coronavirus Disease 2019 (COVID-19): Caring for Yourself or Others Prescriptions: New albuterol sulfate 5 mg/mL solution for nebulization 2.5 mg inhalation Q4H PRN (Reason: shortness of breath or wheezing) Qty: 600 0RF dexamethasone 6 mg tablet 6 mg PO DAILY Qty: 7 0RF benzonatate 200 mg capsule 200 mg PO TID PRN (Reason: cough) Qty: 20 0RF guaifenesin 1,200 mg tablet extended release 12hr 1,200 mg PO Q12H Qty: 20 0RF ondansetron 4 mg tablet,disintegrating 4 mg PO Q8H PRN PRN (Reason: Nausea) Qty: 20 0RF No Action levothyroxine 125 mcg tablet 125 mcg PO DAILY cyanocobalamin (vitamin B-12) 2,500 mcg tablet 2,500 mcg PO DAILY Vitamin B-6 50 mg capsule 50 mg PO DAILY albuterol sulfate [ProAir HFA] 90 mcg/actuation HFA aerosol inhaler 2 puff inhalation TID PRN (Reason: Shortness Of Breath) polyethylene glycol 3350 [Miralax] 17 gram powder in packet 17 g PO DAILY calcium carbonate-vitamin D3 500 mg(1,250mg) -125 unit tablet 1 tab PO DAILY tizanidine 4 mg tablet 4 mg PO Gemtesa 75 mg tablet 75 mg PO collagen .Route Rx Instructions: daily Ocuvite Adult 50 Plus 250 mg (90 mg-160 mg) capsule 1 cap PO DAILY omeprazole 40 mg capsule,delayed release(DR/EC) PO losartan 50 MG tablet 50 mg PO DAILY Primary Care Provider: Esthela Newell Referrals: Esthela Newell, RN [facility] [Primary Care Provider] - Disposition Disposition: Home, Self Care Discharge Date/Time: 06/22/23 18:59
== END 2023-06-22 18:59 | disposition home or self-care (01) ==
PROVIDERS: Emergency Provider Student in an Organized Health Care Education/Training Program; PCP Nurse Practitioner Family; Visit Provider Student in an Organized Health Care Education/Training Program
DX: U07.1 COVID-19 (principal); Z68.41 Body mass index [BMI] 40.0-44.9, adult; R53.1 Weakness; E78.5 Hyperlipidemia, unspecified; I10 Essential (primary) hypertension; E66.9 Obesity, unspecified; Z79.899 Other long term (current) drug therapy
CPT/HCPCS: 99282

== ENCOUNTER → 2024-02-10 | Outpatient (CLI) | payer MEDICARE, SELFPAY ==
--- NOTE | 2024-02-10 07:30 | US_ITS ---
INDICATION: hoarseness (R49.0) EXAMINATION: Ultrasound US Thyroid (eg thyroid, parathyroid, parotid) TECHNIQUE: Persaud scale and color doppler imaging was performed of the thyroid gland. COMPARISON: FINDINGS: RIGHT THYROID LOBE: 3.4 x 1.2 x 1.2 cm. Heterogeneous echotexture with normal vascularity. [No thyroid nodules are present. LEFT THYROID LOBE: 3.1 x 1.3 x 0.8 cm. Heterogeneous echotexture with normal vascularity. [No thyroid nodules are present. ISTHMUS: 3 mm. No thyroid nodules are present. US/Head/Neck Soft Tissue IMPRESSION: Heterogeneity of the thyroid without discrete lesion. Electronically Signed: Julio Charles DO at 23:58 EDT ,
== END | disposition home or self-care (01) ==
LOC: US 07:30
PROVIDERS: PCP Nurse Practitioner Family; Referring Provider Nurse Practitioner Family; Visit Provider Nurse Practitioner Family
DX: R49.0 Dysphonia (principal)
CPT/HCPCS: 76536

== ENCOUNTER 2024-05-18 18:04 | Emergency (ER) | payer MEDICARE, SELFPAY ==
[2024-05-18] VITALS (7 sets, daily range): BP systolic 113–146; BP diastolic 49–98; PULSE 76–89; RESP 18–22; TEMP 36–36.8; O2SAT 92–100; BMI 34.3
--- NOTE | 2024-05-18 18:16 | EKG12_ITS ---
Test Reason : CP Blood Pressure : */* mmHG Vent. Rate : 83 BPM Atrial Rate : 83 BPM P-R Int : 164 ms QRS Dur : 80 ms QT Int : 360 ms P-R-T Axes : 15 3 48 degrees QTcB Int : 423 ms Normal sinus rhythm Normal ECG Confirmed by ROSALVA GIPSON, ANITA ([id number]), assistant production editor REBECCA REDDING ([id number]) on 05/19/2024 1:53:26 PM Referred By: Confirmed By: ANITA BLACKWELL MD
--- NOTE | 2024-05-18 18:35 | RAD_ITS ---
INDICATION: chest pain EXAMINATION/TECHNIQUE: X-RAY - XR Chest 2 Views COMPARISON: 03/04/2024 FINDINGS: LINES/DEVICES: None. LUNGS: No consolidation, edema or effusion. No pneumothorax. MEDIASTINUM AND CARDIOVASCULAR STRUCTURES: Cardiac silhouette not enlarged. Central airways and mediastinal contour are unremarkable. BONES AND SOFT TISSUES: No acute changes. RAD/Chest PA and Lateral IMPRESSION: No radiographic evidence of acute cardiopulmonary disease. Electronically Signed: Blaze Fletcher MD at 19:04 EST ,
[2024-05-18 18:46] LABS: Absolute Lymphocyte Count 3.48 X10^3/uL (0.83-4.51); Absolute Neutrophil Count 5.5 X10^3/uL (2.0-7.7); Basophil# 0.07 X10^3/uL; Basophil% 0.7 % (0-1); Eosinophil# 0.36 X10^3/uL; Eosinophils% 3.5 % (0-5); Hematocrit 44.7 % (37-47); Lymphocyte # 3.48 X10^3/ul (0.83-4.51); Lymphocyte % 33.4 % (19-41); Mean Corp Hgb Conc 33.6 g/dL (32-36); Mean Corpuscular Hgb 29.7 pg (27.0-32.0); Mean Corpuscular Volume 88.5 fL (81-99); Mean Platelet Vol. 8.4 fl (6.2-12.0); Monocyte# 0.92 X10^3/uL; Monocyte% 8.8 % (0-10); NRBC Flagged by Analyzer 0 % (0-5); Neutrophil # 5.47 X10^3/uL (2.7-7.7); Neutrophil % 52.5 % (47-70); Platelet Count 422 K/mm3 (150-450); RBC Distribution Width CV 13.6 % (11.6-14.6); RBC Distribution Width SD 44.2 fl (35.1-43.9); Red Blood Count 5.05 M/mm3 (4.2-5.4); White Blood Count 10.4 K/mm3 (4.4-11.0)
--- NOTE | 2024-05-18 18:58 | EDS_ITS ---
HPI History of Present Illness Chief Complaint: Chest Pain Narrative Narrative: Patient is a 78-year-old female with a past medical history of hyperlipidemia, depression, anxiety, hypothyroidism, PE after knee surgery several years ago who presents to the emergency department with a chief complaint of chest pain. Patient states that her chest pain started on Saturday and she states that this has been persistent. States that she got a massage on Saturday that initially helped her pain however returned she states that she attempted to get a massage again today and noted that this was extremely painful prompting her to come here for further evaluation management. Patient states that her pain is in the left side of her chest and radiates to her left arm. She states that she has been sick recently with allergies and coughing a lot as well. [facility] Medical History Decreased radial pulse Right hand weakness Injury of right radial artery Obesity Superficial thrombophlebitis of left leg (08/2020) Hyperlipidemia Depression Venous insufficiency History of pulmonary embolus (PE) Anxiety GERD (gastroesophageal reflux disease) Hypothyroidism Essential hypertension Osteoarthritis Osteopenia Elevated d-dimer Home Medications ?Medication ?Instructions ?Recorded ?Last Taken ?Type losartan 50 mg tablet 50 mg PO DAILY BP 08/21/20 01/06/21 History albuterol sulfate 90 mcg/actuation 2 puff inhalation TID PRN 12/21/20 Unknown History aerosol inhaler (ProAir HFA) Shortness Of Breath calcium 500 mg (as 1 tab PO DAILY 12/21/20 Unknown History carbonate)-vitamin D3 3.125 mcg (125 unit) tablet polyethylene glycol 3350 17 gram 17 g PO DAILY 12/21/20 Unknown History oral powder packet (Miralax) cyanocobalamin (vitamin B-12) 2,500 mcg PO DAILY 12/28/20 Unknown History 2,500 mcg tablet levothyroxine 125 mcg tablet 125 mcg PO DAILY 12/28/20 01/06/21 History pyridoxine (vitamin B6) 50 mg 50 mg PO DAILY 12/28/20 Unknown History capsule (Vitamin B-6) collagen .Route 12/13/22 Unknown History [id number] 250 mg-dha 90 1 cap PO DAILY 12/13/22 Unknown History mg-epa 160 [id number]-lcvb-zeax capsule (Ocuvite Adult 50 Plus) vibegron 75 mg tablet (Gemtesa) 75 mg PO 12/13/22 Unknown History albuterol sulfate 5 mg/mL(0.5 %) 2.5 mg (0.5 mL) inhalation Q4H PRN 06/22/23 Unknown Rx solution for nebulization shortness of breath or wheezing #600 mL benzonatate 200 mg capsule 200 mg PO TID PRN cough #20 caps 06/22/23 Unknown Rx dexamethasone 6 mg tablet 6 mg PO DAILY #7 tabs 06/22/23 Unknown Rx guaifenesin 1,200 mg tablet, 1,200 mg PO Q12H #20 tabs 06/22/23 Unknown Rx extended release 12 hr ondansetron 4 mg disintegrating 4 mg PO Q8H PRN PRN Nausea #20 tabs 06/22/23 Unknown Rx tablet doxycycline hyclate 100 mg capsule 100 mg PO BID 05/18/24 Unknown History lidocaine 5 % topical patch 1 patch topical DAILY #15 ea 05/18/24 Unknown Rx (Lidoderm) Allergy/AdvReac Type Severity Reaction Status Date / Time propoxyphene (From Allergy Unknown Nausea Verified 05/18/24 18:07 Darvocet-N 100) celecoxib (From Celebrex) Allergy Other Verified 05/18/24 18:07 meloxicam Allergy Other Verified 05/18/24 18:07 metaxalone (From Skelaxin) Allergy Other Verified 05/18/24 18:07 Penicillins (PCN) Allergy Hives Verified 05/18/24 18:07 Sulfa (Sulfonamide Allergy Hives Verified 05/18/24 18:07 Antibiotics) tolterodine (From Detrol) AdvReac dizzy Verified 05/18/24 18:07 blurred vision Family History Mother Diabetes Hypertension Heart disease Had cardiac mass and had thoracotomy to remove mass Father CAD (coronary artery disease), Onset Age: 80 CABG Myocardial infarction, Onset Age: 78 Surgical History History of left heart catheterization (01/06/21) History of colonoscopy with polypectomy (12/22/20) History of cystocele 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) History of hysterectomy History of colonoscopy History of appendectomy Social History Smoking Status: Never smoker alcohol intake: never substance use type: does not use caffeine: Yes Type: tea Number of servings: 1 ROS ROS ED ROS Narrative Constitutional: Denies fevers, chills, headaches, lightness, dizziness Eyes: Denies change in vision double vision blurry vision Cardiovascular: Complains of chest pain as noted above denies palpitations Respiratory: Complains of cough as noted above denies shortness of breath or wheezing Abdomen: Denies abdominal pain nausea vomit diarrhea : Denies any urinary symptoms Neurological: Denies any numbness, weakness, tingling Musculoskeletal: Denies back pain Skin: Denies rashes or lesions EXAM Physical Exam Narrative Exam Narrative: General: Patient lying in bed rest comfortably did not appear to be acute distress Head: Atraumatic, normocephalic Eyes: PERRL bilaterally, EOMI bilateral, no conjunctival injection noted Neck: Soft, supple, trachea midline Cardiovascular: Regular rate and rhythm no murmurs gallops rubs noted Respiratory: Clear to auscultation bilaterally no rales rhonchi or wheezes noted Abdomen: Soft, nondistended, nontender to palpation, bowel sounds are present x 4 Extremities: +5/5 strength noted in the bilateral lower extremities, radial pulses +2/4 in the bilateral per extremities Neurological: Patient following commands knew that she was at [facility] years 2023 Skin: Warm, dry, intact Const Vital Signs: 05/18/24 18:04 05/18/24 18:17 05/18/24 19:04 Temperature 96.8 F L Temperature Source Temporal Pulse Rate 89 88 Respiratory Rate 22 H 22 H Blood Pressure 145/88 H 146/98 H Blood Pressure Mean 107 114 Pulse Ox 100 93 93 Oxygen Delivery Method Room Air Room Air Room Air 05/18/24 19:04 05/18/24 20:00 05/18/24 21:00 Temperature Temperature Source Pulse Rate 87 76 85 Respiratory Rate 20 H 18 18 Blood Pressure 146/98 H 119/63 135/56 H Blood Pressure Mean 114 81 82 Pulse Ox 99 99 95 Oxygen Delivery Method Room Air Room Air Room Air 05/18/24 22:00 Temperature Temperature Source Pulse Rate 87 Respiratory Rate 18 Blood Pressure 128/49 H Blood Pressure Mean 75 Pulse Ox 96 Oxygen Delivery Method Room Air MDM MDM MDM Narrative Medical decision making narrative: Patient is a 78-year-old female who presented to the emergency department chief complaint of chest pain. Patient will have a workup performed here on the differential diagnose includes but not limited to ACS, costochondritis, pneumonia, pneumothorax. Once workup is obtained reviewed she will be reevaluated. Patient given morphine Zofran. Patient CBC reviewed and showed no evidence of leukocytosis white blood count normal at 10.4, hemoglobin stable 15, platelet count was noted to be normal at 422. Patient sodium normal 135, potassium was noted to be normal at 3.8, creatinine normal at 0.85. Patient's troponin was 96 with a delta troponin obtained normal at 6 and her EKG was reviewed and independently interpreted by myself which showed sinus rhythm with rate of 83 bpm. Patient's chest x-ray was reviewed by myself and by radiology which showed no acute cardiopulmonary processes. Patient was complaining of severe pain radiating to her back and her neck therefore I did add on a D-dimer which was elevated at 0.61 with age-adjusted this was within the normal range however given her severe symptoms did add on a CTA of her chest. Patient was given more morphine. Patient CT of the chest showed no acute findings. I just discussed the results with the patient and she would like to go home at this point time she is starting to feel better. Patient was advised to follow- up with her primary care physician outpatient setting. She is advised to rotate Tylenol and ibuprofen [id number] for pain control. She was given a prescription for lidocaine patches. She was encouraged to return with worsening symptoms or other concerns. All question concerns answered she was discharged home in stable condition. Lab Data Labs: Laboratory Results - last 24 hr 05/18/24 05/18/24 18:30 20:45 WBC 10.4 RBC 5.05 Hgb 15.0 Hct 44.7 MCV 88.5 MCH 29.7 MCHC 33.6 RDW Std Deviation 44.2 H RDW Coeff of Raven 13.6 Plt Count 422 MPV 8.4 Immature Gran % (Auto) 1.100 H Neut % (Auto) 52.5 Lymph % (Auto) 33.4 King % (Auto) 8.8 Eos % (Auto) 3.5 Baso % (Auto) 0.7 Absolute Neuts (auto) 5.5 Absolute Lymphs (auto) 3.48 Nucleated RBC % 0 D-Dimer Quant (PE/DVT) 0.61 H* Sodium 135 L Potassium 3.8 Chloride 104 Carbon Dioxide 26.0 Anion Gap 6 BUN 24 H Creatinine 0.85 Estim Creat Clear Calc 55.49 Est GFR (MDRD) Af Amer 83 Est GFR (MDRD) Non-Af 68 BUN/Creatinine Ratio 28.2 H Glucose 82 Calcium 10.8 H Troponin I High Sens 6 6 Radiography Diagnostic Testing: Clinical Impression(s) from Imaging Studies Chest X-Ray 05/18/24 18:35 IMPRESSION: No radiographic evidence of acute cardiopulmonary disease. Electronically Signed: Blaze Fletcher MD at 19:04 EST , Chest CTA 05/18/24 20:47 IMPRESSION: Negative CTA chest. Electronically Signed: Marquis Vieira MD at 21:51 EST , Discharge Plan Triage Chief Complaint: Chest Pain ED Provider: Robert Ricardo Dx/Rx/DC Orders Clinical Impression: Chest pain Prescriptions: New lidocaine [Lidoderm] 5 % adhesive patch,medicated 1 patch topical DAILY Qty: 15 0RF Rx Instructions: leave on most painful area for up to 12 hrs No Action levothyroxine 125 mcg tablet 125 mcg PO DAILY cyanocobalamin (vitamin B-12) 2,500 mcg tablet 2,500 mcg PO DAILY Vitamin B-6 50 mg capsule 50 mg PO DAILY albuterol sulfate [ProAir HFA] 90 mcg/actuation HFA aerosol inhaler 2 puff inhalation TID PRN (Reason: Shortness Of Breath) polyethylene glycol 3350 [Miralax] 17 gram powder in packet 17 g PO DAILY calcium carbonate-vitamin D3 500 mg(1,250mg) -125 unit tablet 1 tab PO DAILY Gemtesa 75 mg tablet 75 mg PO collagen .Route Rx Instructions: daily Ocuvite Adult 50 Plus 250 mg (90 mg-160 mg) capsule 1 cap PO DAILY losartan 50 MG tablet 50 mg PO DAILY albuterol sulfate 5 mg/mL solution for nebulization 2.5 mg inhalation Q4H PRN (Reason: shortness of breath or wheezing) Qty: 600 0RF dexamethasone 6 mg tablet 6 mg PO DAILY Qty: 7 0RF benzonatate 200 mg capsule 200 mg PO TID PRN (Reason: cough) Qty: 20 0RF guaifenesin 1,200 mg tablet extended release 12hr 1,200 mg PO Q12H Qty: 20 0RF ondansetron 4 mg tablet,disintegrating 4 mg PO Q8H PRN PRN (Reason: Nausea) Qty: 20 0RF doxycycline hyclate 100 mg capsule 100 mg PO BID Primary Care Provider: Esthela Newell Referrals: Esthela Newell NP-C [Primary Care Provider] - Activity Restrictions/Additional Instructions: Rotate Tylenol and ibuprofen [id number] for pain control. Return with worsening symptoms or concerns. Use the Lidoderm patches as prescribed. Follow-up your primary care physician. Print Language: Yakut Disposition Disposition: Home, Self Care
[2024-05-18] MEDS: Ondansetron 4 MG/2 ML Vial IV (19:08)
[2024-05-18] MEDS: Morphine 4 MG/ML Syringe IV ×2 (19:10→21:07)
[2024-05-18 19:30] LABS: Anion Gap 6 (5-15); BUN 24 mg/dL (7-18); BUN/Creat Ratio 28.2 RATIO (10-20); Calcium,Total 10.8 mg/dL (8.5-10.1); Chloride 104 mmol/L (98-107); Creatinine, Serum 0.85 mg/dL (0.55-1.02); EST Glomerular Filtration Rate 68 mL/min (>60); Est Glom Filt Rate - Afr Amer 83 mL/min (>60); Estimated Creatinine Clearance 55.49 ml/min; Glucose 82 mg/dL (74-106); Potassium 3.8 mmol/L (3.5-5.1); Sodium Level 135 mmol/L (136-145); Troponin-I HS (w/2H Reflex) 6 pg/mL (3.0-54.0)
[2024-05-18 20:16] LABS: D-Dimer Quantitative (DVT/PE) 0.61 FEU/ug/m (0.27-0.49)
[2024-05-18 20:41] LABS: Reflex Troponin-HS? (from REC) Y
--- NOTE | 2024-05-18 20:47 | CT_ITS ---
EXAM: CT ANGIOGRAPHY CHEST WITHOUT AND WITH INTRAVENOUS CONTRAST CLINICAL INDICATION: chest pain hx of pe TECHNIQUE: Helically acquired angiography images were obtained of the chest without and with intravenous contrast. This CT exam was performed using one or more of the following dose reduction techniques: automated exposure control, adjustment of the mA and/or kV according to patient size, and/or use of iterative reconstruction technique. MIP reconstructed images were created and reviewed. CONTRAST: IV 100mL Isovue-370 COMPARISON: 10/31/2020 FINDINGS: PULMONARY ARTERIES: Unremarkable. Normal in caliber. No evidence of pulmonary embolism. AORTA: Unremarkable. Normal in caliber. No evidence of dissection. GREAT VESSELS OF AORTIC ARCH: Unremarkable. Normal in caliber. No evidence of dissection. LUNGS AND PLEURAL SPACES: Unremarkable. No mass. No consolidation or edema. No pleural effusion or thickening. No pneumothorax. HEART: Unremarkable. Heart size is normal. No pericardial effusion. No significant coronary artery calcifications. MEDIASTINUM: Unremarkable. No mediastinal or hilar adenopathy. Esophagus is unremarkable. No hiatal hernia. THYROID: Unremarkable. No thyroid lesions. BONES/JOINTS: Unremarkable. No suspicious lytic or blastic abnormality. CT/CTA Chest W/WO Contrast IMPRESSION: Negative CTA chest. Electronically Signed: Marquis Vieira MD at 21:51 EST ,
[2024-05-18 21:06] LABS: Troponin-I HS 6 pg/mL (3.0-54.0)
== END 2024-05-18 22:34 | disposition home or self-care (01) ==
PROVIDERS: Emergency Provider Emergency Medicine; PCP Nurse Practitioner Family; Visit Provider Emergency Medicine
DX: R07.9 Chest pain, unspecified (principal); I10 Essential (primary) hypertension; Z79.899 Other long term (current) drug therapy
CPT/HCPCS: 71046; 71275; 80048; 84484; 85025; 85379; 93005; 96374; 96375; 96376; 99285; Q9967; A4216; J2405

== ENCOUNTER 2024-07-16 13:40 | Emergency (ER) | payer MEDICARE, SELFPAY ==
[2024-07-16 13:40] VITALS: BP 156/80; PULSE 91; RESP 20; TEMP 36.1; O2SAT 100; BMI 33.6
--- NOTE | 2024-07-16 14:25 | ED.VIS.GI ---
HPI HPI - GI History of Present Illness Chief Complaint: Constipation Informant: patient Abdominal Pain/Flank Pain Onset: Days Context: Gradual Onset Timing: Continuous Quality: Cramping Location: Diffuse Current Severity: Mild Maximum Severity: Mild Worsened by: Nothing Relieved by: Nothing Nausea/Vomiting/Emesis GI Symptom: Negative for Nausea or Vomiting Diarrhea/Melena/Hematochezia GI Symptom: Negative for Diarrhea, Melena or Hematochezia Associated Symptoms Associated Symptoms: Negative for Dysuria, Frequency, Hematuria or Urgency Narrative Narrative: 78-year-old female history of constipation. States she had normal bowel movement on Saturday has not had a bowel movement since that time. Mild crampy discomfort. No vomiting. No diarrhea. No dysuria. No fever. No melena. Prior appendectomy no other abdominal surgeries. Prior similar symptoms: Yes Recent Illness/Hospitalization: No PFSH PFSH Medical History Decreased radial pulse Right hand weakness Injury of right radial artery Obesity Superficial thrombophlebitis of left leg (08/2020) Hyperlipidemia Depression Venous insufficiency History of pulmonary embolus (PE) Anxiety GERD (gastroesophageal reflux disease) Hypothyroidism Essential hypertension Osteoarthritis Osteopenia Elevated d-dimer Home Medications ?Medication ?Instructions ?Recorded ?Last Taken ?Type losartan 50 mg tablet 50 mg PO DAILY BP 08/21/20 01/06/21 History albuterol sulfate 90 mcg/actuation 2 puff inhalation TID PRN 12/21/20 Unknown History aerosol inhaler (ProAir HFA) Shortness Of Breath calcium 500 mg (as 1 tab PO DAILY 12/21/20 Unknown History carbonate)-vitamin D3 3.125 mcg (125 unit) tablet polyethylene glycol 3350 17 gram 17 g PO DAILY 12/21/20 Unknown History oral powder packet (Miralax) cyanocobalamin (vitamin B-12) 2,500 mcg PO DAILY 12/28/20 Unknown History 2,500 mcg tablet levothyroxine 125 mcg tablet 125 mcg PO DAILY 12/28/20 01/06/21 History pyridoxine (vitamin B6) 50 mg 50 mg PO DAILY 12/28/20 Unknown History capsule (Vitamin B-6) collagen .Route 12/13/22 Unknown History zppmyewl-coy- 250 mg-dha 90 1 cap PO DAILY 12/13/22 Unknown History mg-epa 160 uh-egjw-fbbd-zeax capsule (Ocuvite Adult 50 Plus) vibegron 75 mg tablet (Gemtesa) 75 mg PO 12/13/22 Unknown History albuterol sulfate 5 mg/mL(0.5 %) 2.5 mg (0.5 mL) inhalation Q4H PRN 06/22/23 Unknown Rx solution for nebulization shortness of breath or wheezing #600 mL benzonatate 200 mg capsule 200 mg PO TID PRN cough #20 caps 06/22/23 Unknown Rx dexamethasone 6 mg tablet 6 mg PO DAILY #7 tabs 06/22/23 Unknown Rx guaifenesin 1,200 mg tablet, 1,200 mg PO Q12H #20 tabs 06/22/23 Unknown Rx extended release 12 hr ondansetron 4 mg disintegrating 4 mg PO Q8H PRN PRN Nausea #20 tabs 06/22/23 Unknown Rx tablet doxycycline hyclate 100 mg capsule 100 mg PO BID 05/18/24 Unknown History lidocaine 5 % topical patch 1 patch topical DAILY #15 ea 05/18/24 Unknown Rx (Lidoderm) Allergy/AdvReac Type Severity Reaction Status Date / Time propoxyphene (From Allergy Unknown Nausea Verified 07/16/24 13:44 Darvocet-N 100) celecoxib (From Celebrex) Allergy Other Verified 07/16/24 13:44 meloxicam Allergy Other Verified 07/16/24 13:44 metaxalone (From Skelaxin) Allergy Other Verified 07/16/24 13:44 Penicillins (PCN) Allergy Hives Verified 07/16/24 13:44 Sulfa (Sulfonamide Allergy Hives Verified 07/16/24 13:44 Antibiotics) tolterodine (From Detrol) AdvReac dizzy Verified 07/16/24 13:44 blurred vision Family History Mother Diabetes Hypertension Heart disease Had cardiac mass and had thoracotomy to remove mass Father CAD (coronary artery disease), Onset Age: 80 CABG Myocardial infarction, Onset Age: 78 Surgical History History of left heart catheterization (01/06/21) History of colonoscopy with polypectomy (12/22/20) History of cystocele 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 Denies fever, vomiting or diarrhea. No dysuria. Constitutional Constitutional ED: Denies chills or fever(s) ENT ENT ED: Denies ear pain Cardiovascular Cardiovascular: Denies chest pain Respiratory/Chest Respiratory/Chest: Denies cough or dyspnea Gastrointestinal Gastrointestinal: Reports constipation Genitourinary Genitourinary ED: Denies dysuria or hematuria Musculoskeletal Musculoskeletal: Denies arthralgias Integumentary Denies abscess Neurologic Neurologic: Denies headache(s) Psychiatric Psychiatric: Denies anxiety or depression Endocrine Endocrinology: Denies polydipsia or polyphagia Hematologic/Lymphatic Hematologic/Lymphatic: Denies easy bleeding or easy bruising Allergic/Immunologic Allergic/Immunologic ED: Denies mouth swelling, tongue swelling or urticaria EXAM Physical Exam Narrative Exam Narrative: Well-appearing 78-year-old female. Vital signs stable afebrile. Does not look septic or toxic. In no distress. Sitting upright in bed. No family present. H EENT exam unremarkable. Mytrex membranes. Normal speech. No facial droop. Lungs clear to auscultation bilateral. Heart regular rhythm rate about 90 no murmur appreciated. Chest wall ribs nontender. Abdomen soft nondistended normal bowel sounds no peritoneal signs. No obstruction. No hernia or mass. No pulsatile mass. Back nontender. Moving all 4 extremities. Nontender. Neurologically she is awake and alert no focal motor deficits. Const Vital Signs: 07/16/24 13:40 Temperature 97 F L Temperature Source Temporal Pulse Rate 91 Respiratory Rate 20 H Blood Pressure 156/80 H Blood Pressure Mean 105 Pulse Ox 100 Oxygen Delivery Method Room Air Positive well nourished and well developed; Negative for cachectic, contractures or unkempt General Appearance ED: well developed and NAD; Negative for unkempt, cachectic, contractures or pallor Nutritional Appearance: Negative for cachectic HEENT Reports moist mucous membranes normocephalic and atraumatic; Negative for trauma or tenderness Eyes PERRL and EOMs intact bilaterally General Eye ED: Negative for pale conjunctiva or scleral icterus Neck no lymphadenopathy, supple and no JVD General: Negative for tenderness Carotids: Negative for other Lymph Lymphatic: Negative for other Resp normal respiratory effort and clear to auscultation bilaterally Effort and Inspection: Negative for respiratory distress Auscultation: Negative for rales, rhonchi, wheezes or diminished lung sounds Cardio regular rate, regular rhythm, S1 normal heart sound, S2 normal heart sound and no murmurs GI non-tender, non-distended and no masses Auscultation: normoactive bowel sounds Palpation: soft; Negative for tender, guarding or rebound tenderness present Back/Spine no CVA tenderness General Back: Negative for CVA tenderness Cervical Spine: Negative for cervical spine tenderness Thoracic Spine / Upper Back: Negative for thoracic spinal tenderness Lumbar Spine / Lower Back: Negative for lumbar spinal tenderness Extremity full ROM General Extremety ED: Negative for edema or tenderness General Extremity: Negative for edema Neuro CN's II-XII intact bilaterally and moves all extremities Sensorium / Orientation: alert, oriented to person, oriented to place and oriented to time; Negative for orientation impaired, confused or lethargic Motor Exam: strength 5/5 throughout Psych mental status grossly normal and thought process normal Appearance: Negative for unkempt Attitude: No agitated Mood & Affect: Negative for depressed, anxious or tearful Skin no wounds General Skin Exam: Negative for jaundice or pallor Lesions: no lesions Rashes: no rashes Trauma: Negative for abrasion Nails: Negative for discolored MDM MDM MDM Narrative Medical decision making narrative: 78-year-old female history of constipation. Exam benign. KUB being obtained. I do not think she needs a CT or labs. Repeat exam patient is doing well at 3:50 PM. Patient was offered GoLytely. She does not feel comfortable going home and taking it. She will be given it here to see if she has a bowel movement. If not and that does not work we may have to do a soapsuds enema. History & Record Review Discussion w/independent historian: Patient Additional record(s) reviewed:: Prior inpatient record, Prior outpatient record, Prior ED visit and Prior labs Lab Data Attestation: I reviewed the patient's lab results. Radiography Diagnostic Testing: Clinical Impression(s) from Imaging Studies KUB X-Ray 07/16/24 14:30 IMPRESSION: Large amount of fecal material is seen in the colon. Electronically Signed: Michael Dailey MD at 14:46 EST , KUB 2 views of the abdomen interpreted by myself shows increased stool consistent with constipation. No free air. No bowel obstruction. Also read by the radiologist and agrees. Discharge Plan Triage Chief Complaint: Constipation ED Provider: Munir Haskins Dx/Rx/DC Orders Clinical Impression: Acute constipation Instructions: ED Constipation (Adult) Prescriptions: No Action levothyroxine 125 mcg tablet 125 mcg PO DAILY cyanocobalamin (vitamin B-12) 2,500 mcg tablet 2,500 mcg PO DAILY Vitamin B-6 50 mg capsule 50 mg PO DAILY albuterol sulfate [ProAir HFA] 90 mcg/actuation HFA aerosol inhaler 2 puff inhalation TID PRN (Reason: Shortness Of Breath) polyethylene glycol 3350 [Miralax] 17 gram powder in packet 17 g PO DAILY calcium carbonate-vitamin D3 500 mg(1,250mg) -125 unit tablet 1 tab PO DAILY Gemtesa 75 mg tablet 75 mg PO collagen .Route Rx Instructions: daily Ocuvite Adult 50 Plus 250 mg (90 mg-160 mg) capsule 1 cap PO DAILY losartan 50 MG tablet 50 mg PO DAILY albuterol sulfate 5 mg/mL solution for nebulization 2.5 mg inhalation Q4H PRN (Reason: shortness of breath or wheezing) Qty: 600 0RF dexamethasone 6 mg tablet 6 mg PO DAILY Qty: 7 0RF benzonatate 200 mg capsule 200 mg PO TID PRN (Reason: cough) Qty: 20 0RF guaifenesin 1,200 mg tablet extended release 12hr 1,200 mg PO Q12H Qty: 20 0RF ondansetron 4 mg tablet,disintegrating 4 mg PO Q8H PRN PRN (Reason: Nausea) Qty: 20 0RF doxycycline hyclate 100 mg capsule 100 mg PO BID lidocaine [Lidoderm] 5 % adhesive patch,medicated 1 patch topical DAILY Qty: 15 0RF Rx Instructions: leave on most painful area for up to 12 hrs Primary Care Provider: Esthela Newell Referrals: Esthela Newell, NATALIA-C [Primary Care Provider] - As Needed Activity Restrictions/Additional Instructions: Plenty of fluids, fruits, vegetables and fiber to help prevent constipation. Zejy-ogd-mjlzzaq magnesium citrate or the GoLytely as needed for constipation. The GoLytely drink an 8 ounce glass every hour and to have a bowel movement. Return if feeling worse such as increasing pain, vomiting or fever. Print Language: Palestinian Disposition Disposition: Home, Self Care
--- NOTE | 2024-07-16 14:30 | RAD_ITS ---
STUDY: X-RAY - ABDOMEN/PELVIS REASON FOR EXAM: Female, 78 years old. Constipation TECHNIQUE: Single AP view of the abdomen / pelvis. COMPARISON: None. FINDINGS: There is elevation of the right hemidiaphragm. Lungs are clear. There is an abundance of fecal material throughout the colon. The visualized liver, spleen and kidneys are grossly normal in size and morphology. Normal soft tissue structures. There are degenerative changes of the visualized lumbar spine. Minimal convex scoliosis of the lumbar spine. Degenerative changes and sclerosis of the symphysis pubis. RAD/Abdomen Single View IMPRESSION: Large amount of fecal material is seen in the colon. Electronically Signed: Michael Dailey MD at 14:46 EST ,
[2024-07-16 15:40] VITALS: BP 145/80; PULSE 84; RESP 18; O2SAT 98
[2024-07-16] MEDS: Electrolyte Solution/Peg's 4000 ML 1000 ML PO (16:32)
[2024-07-16 17:00] VITALS: BP 135/78; PULSE 78; RESP 18
[2024-07-16 19:00] VITALS: BP 139/71; PULSE 81; RESP 18; O2SAT 98
== END 2024-07-16 19:30 | disposition home or self-care (01) ==
PROVIDERS: Emergency Provider Emergency Medicine; PCP Nurse Practitioner Family; Visit Provider Emergency Medicine
DX: K59.00 Constipation, unspecified (principal); I10 Essential (primary) hypertension; Z79.899 Other long term (current) drug therapy

== ENCOUNTER 2025-02-11 10:36 | Inpatient (IN) | payer MEDICARE, SELFPAY ==
[2025-02-11] VITALS (7 sets, daily range): BP systolic 124–141; BP diastolic 54–70; PULSE 62–80; RESP 16–18; TEMP 36–37.2; O2SAT 98–100; BMI 31.6; BMI 30.8
--- NOTE | 2025-02-11 11:02 | CT_ITS ---
PROCEDURE: ABDOMEN/PELVIS WITH CONTRAST 02/11/2025 REASON FOR EXAM: GENERALIZED ABD PAIN TECHNIQUE: ABDOMEN/PELVIS WITH CONTRAST Coronal and Sagittal reconstruction series were provided. CONTRAST: Isovue 370 VOLUME: 100 mL One or more dose reduction techniques were used (e.g., Automated exposure control, adjustment of the mA and/or kV according to patient size, use of iterative reconstruction technique. RADIATION DOSE SUMMARY: CTDlvol: 33.11 mGy DLP: 1035.87 mGycm COMPARISON: None FINDINGS: Lung bases: Chronic interstitial changes with dependent atelectasis. Liver: Liver is of normal homogeneous appearance. There is however evidence of central biliary dilatation. No discrete lesions identified. Gallbladder: Gallbladder is distended shows wall thickening and gallstones to be present. There is a minimal amount of pericholecystic fluid no biliary dilatation is identified but there is as mentioned central intrahepatic biliary dilatation. Cholecystitis can not be excluded, this could also be due to biliary dyskinesia, consider HIDA scan for further evaluation if clinical exam is equivocal Spleen: Normal size. Pancreas: Pancreas is unremarkable aside from nonspecific pancreatic ductal dilatation in the tail Adrenals: Unremarkable Kidneys: No obstructive uropathy or suspicious solid renal lesion. Bladder: Distends normally. Reproductive Organs: Likely surgically absent Bowel: No ileus or obstruction. Retained stool noted in the colon with scattered diverticula. No CT evidence of acute diverticulitis. There is submucosal thickening and edema in the gastric antrum and pyloric channel suggesting gastritis. Appendix: Appendix not visualized Lymph nodes: There are some mildly enlarged retroperitoneal lymph nodes measuring up to 1.3 cm these may be reactive Vasculature: Peripheral calcifications in the abdominal aorta without aneurysm. Peritoneum / Retroperitoneum: No free fluid or air Bones: Degenerative bony changes There are simple hepatic and renal cortical cysts, no specific follow up needed CT/Abdomen/Pelvis WITH Contrast IMPRESSION: The gallbladder is distended, containing gallstones and there is evidence of ga llbladder wall thickening and some pericholecystic fluid as well as central intrahepatic biliary dilatation. The extrahepatic com mon bile duct however is not significantly enlarged measuring 8.7 mm which is consistent with patient's age. Findings sug gest cholecystitis or perhaps biliary dyskinesia. Please correlate with physical exam HIDA scan may be of benefit There are periaortic retroperitoneal lymph nodes measuring up to 1.3 cm in shor t axis dimension which may be reactive. Submucosal thickening and edema in the gastric antrum and pyloric channel consi stent with gastritis Retained stool in the colon, no demonstrated ileus or obstruction. Normal appe ndix visualized [place] Alert: Cholecystitis suspected The critical information above was relayed directly by me by telephone to Debora Carbajal on 02/11/2025 at 1:23 pm with readback verification. Reading Location: [id number]
--- NOTE | 2025-02-11 11:05 | EDS_ITS ---
HPI History of Present Illness Chief Complaint: Abd Pain Narrative Narrative: 79-year-old female presents emergency department complaining of generalized abdominal pain. Patient states that she has been having pain over the past couple days wrapping around her abdomen on both sides. Originally was lower then migrated to her upper abdomen about both sides. Denies any back pain, shortness of breath, chest pain. Denying any cardiac disease, dysuria, history of aneurysms. Denying any weakness, numbness, falls. Has had a history of appendectomy. Tried Tylenol this morning without much relief. Admits to some nausea denies any vomiting, diarrhea, constipation. Passing flatus. [facility] Medical History Decreased radial pulse Right hand weakness Injury of right radial artery Obesity Superficial thrombophlebitis of left leg (08/2020) Hyperlipidemia Depression Venous insufficiency History of pulmonary embolus (PE) Anxiety GERD (gastroesophageal reflux disease) Hypothyroidism Essential hypertension Osteoarthritis Osteopenia Elevated d-dimer Home Medications ?Medication ?Instructions ?Recorded ?Last Taken ?Type losartan 50 mg tablet 50 mg PO DAILY BP 08/21/20 0 01/06/21 History albuterol sulfate 90 mcg/actuation 2 puff inhalation T ID PRN 12/21/20 Unknown History aerosol inhaler (ProAir HFA) Shortness Of Breath calcium 500 mg (as 1 tab PO DAILY 12/21/20 Unkn own History carbonate)-vitamin D3 3.125 mcg (125 unit) tablet polyethylene glycol 3350 17 gram 17 g PO DAILY 1 Unknown History oral powder packet (Miralax) cyanocobalamin (vitamin B-12) 2,500 mcg PO DAILY 12/28 Unknown History 2,500 mcg tablet levothyroxine 125 mcg tablet 125 mcg PO DAILY 12/28/20 01/06/21 History pyridoxine (vitamin B6) 50 mg 50 mg PO DAILY 12/28/20 Unknown History capsule (Vitamin B-6) collagen .Route 12/13/22 Unknown Hist ory [id number] 250 mg-dha 90 1 cap PO DAILY 12/13 Unknown History mg-epa 160 qg-zoxy-dide-zeax capsule (Ocuvite Adult 50 Plus) vibegron 75 mg tablet (Gemtesa) 75 mg PO 12/13/22 Unkn own History albuterol sulfate 5 mg/mL(0.5 %) 2.5 mg (0.5 mL) inhal ation Q4H PRN 06/22/23 Unknown Rx solution for nebulization shortness of breath or wheez ing #600 mL benzonatate 200 mg capsule 200 mg PO TID PRN cough #20 caps 06/22/23 Unknown Rx dexamethasone 6 mg tablet 6 mg PO DAILY #7 tabs Unknown Rx guaifenesin 1,200 mg tablet, 1,200 mg PO Q12H #20 tabs 06/22/23 Unknown Rx extended release 12 hr ondansetron 4 mg disintegrating 4 mg PO Q8H PRN PRN Na usea #20 tabs 06/22/23 Unknown Rx tablet doxycycline hyclate 100 mg capsule 100 mg PO BID 05/18 Unknown History lidocaine 5 % topical patch 1 patch topical DAILY #15 ea 05/18/24 Unknown Rx (Lidoderm) Allergy/AdvReac Type Severity Reaction Status Date / Time propoxyphene (From Allergy Unknown Nausea Verified 02/11/25 10:39 Darvocet-N 100) celecoxib (From Celebrex) Allergy Other Verified 02/11/25 10:39 meloxicam Allergy Other Verified 02/11/25 10:39 metaxalone (From Skelaxin) Allergy Other Verified 02/11/25 10:39 Penicillins (PCN) Allergy Hives Verified 02/11/25 10:39 Sulfa (Sulfonamide Allergy Hives Verified 02/11/25 10:39 Antibiotics) tolterodine (From Detrol) AdvReac dizzy Verified 02/11/25 10:39 blurred vision Family History Mother Diabetes Hypertension Heart disease Had cardiac mass and had thoracotomy to remove mass Father CAD (coronary artery disease), Onset Age: 80 CABG Myocardial infarction, Onset Age: 80 Surgical History History of left heart catheterization (01/06/21) History of colonoscopy with polypectomy (12/22/20) History of cystocele 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) History of hysterectomy History of colonoscopy History of appendectomy Social History (Updated 02/11/25 @ 11:18 by Clarita Matta housing: house Smoking Status: Never smoker alcohol intake: never substance use type: does not use caffeine: Yes Type: tea Number of servings: 1 EXAM Physical Exam Const Vital Signs: 02/11/25 10:37 02/11/25 12:37 Temperature 96.8 F L Temperature Source Temporal Pulse Rate 70 80 Respiratory Rate 17 Blood Pressure 135/70 H 138/70 H Blood Pressure Mean 91 92 Pulse Ox 100 100 Oxygen Delivery Method Room Air HEENT Reports moist mucous membranes Eyes PERRL and EOMs intact bilaterally Resp normal respiratory effort and clear to auscultation bilaterally Cardio regular rate, S1 normal heart sound, S2 normal heart sound and no murmurs GI Inspection: Negative for abdominal distention Auscultation: normoactive bowel sounds Palpation: soft and tender other (generalized); Negative for guarding or rebound tenderness present Back/Spine General Back: Negative for CVA tenderness Extremity normal to inspection Extremity Narrative: 2+ bilateral pulses DP and radial Neuro oriented x3 Sensorium / Orientation: alert MDM MDM MDM Narrative Medical decision making narrative: 79-year-old female presents emergency department complaining of generalized abdominal pain. Patient states that she has been having pain over the past couple days wrapping around her abdomen on both sides. Originally was lower then migrated to her upper abdomen about both sides. Denies any back pain, shortness of breath, chest pain. Denying any cardiac disease, dysuria, history of aneurysms. Denying any weakness, numbness, falls. Has had a history of appendectomy. Tried Tylenol this morning without much relief. Admits to some nausea denies any vomiting, diarrhea, constipation. Passing flatus. On physical exam patient has generalized abdominal pain. No CVA tenderness, guarding or rebound. Labs reviewed by myself showing some elevation of AST and ALT. No bilirubin elevation direct or indirect to suggest common bile duct migration. CT abdomen pelvis currently interpreted by myself showing distended gallbladder with small gallstone. Radiology called me there was suspicion for possible cholecystitis, I will obtain right upper quadrant ultrasound for further evaluation. Radiology noted on CT enlarged retroperitoneal lymph nodes. Handoff given to Dr. Gonzalez to follow up on UA and RUQ US pending disposition. Lab Data Attestation: I reviewed the patient's lab results. Lab results narrative: No leukocytosis, Elevated AST: ALT 2:1 suspicious for alcoholic liver. No bilirubin elevation Labs: Laboratory Results - last 24 hr 02/11/25 10:43 WBC 6.9 RBC 4.66 Hgb 14.5 Hct 43.2 MCV 92.7 MCH 31.1 MCHC 33.6 RDW Std Deviation 46.8 H RDW Coeff of Raven 13.8 Plt Count 261 MPV 9.1 Immature Gran % (Auto) 0.100 Neut % (Auto) 63.8 Lymph % (Auto) 27.6 [place] % (Auto) 6.1 Eos % (Auto) 2.0 Baso % (Auto) 0.4 Absolute Neuts (auto) 4.4 Absolute Lymphs (auto) 1.89 Nucleated RBC % 0 Sodium 138 Potassium 4.4 Chloride 103 Carbon Dioxide 25.4 Anion Gap 9 BUN 18 Creatinine 0.81 Estim Creat Clear Calc 54.86 Est GFR (MDRD) Non-Af 73 BUN/Creatinine Ratio 21.8 H Glucose 93 Calcium 9.9 Total Bilirubin 0.36 Direct Bilirubin 0.16 AST 205 H ALT 117 H Alkaline Phosphatase 61 Troponin T High Sens 6 Total Protein 6.5 Albumin 3.9 Globulin 2.6 Lipase 48 Radiography Diagnostic Testing: Clinical Impression(s) from Imaging Studies Abdomen/Pelvis CT 02/11/25 11:02 IMPRESSION: The gallbladder is distended, containing gallstones and there is evidence of gallbladder wall thickening and some pericholecystic fluid as well as central intrahepatic biliary dilatation. The extrahepatic common bile duct however is not significantly enlarged measuring 8.7 mm which is consistent with patient's age. Findings suggest cholecystitis or perhaps biliary dyskinesia. Please correlate with physical exam HIDA scan may be of benefit There are periaortic retroperitoneal lymph nodes measuring up to 1.3 cm in short axis dimension which may be reactive. Submucosal thickening and edema in the gastric antrum and pyloric channel consistent with gastritis Retained stool in the colon, no demonstrated ileus or obstruction. Normal appendix visualized [place] Alert: Cholecystitis suspected The critical information above was relayed directly by me by telephone to Debora Hamilton on 02/11/2025 at 1:23 pm with readback verification. Reading Location: [facility] CT abdomen pelvis independently turbid by myself showing distended gallbladder with obvious gallstone near gallbladder neck. Radiology also did call me concerning for possible enlarged retroperitoneal lymph nodes EKG Initial EKG: Attestation: I personally reviewed and interpreted this EKG as follows: Comments: Normal sinus rhythm, ventricular rate 61, CO 184, QTc 4 6. Normal axis. No signs of ST elevation depressions or T wave inversions consistent with ischemia Discharge Plan Triage Chief Complaint: Abd Pain ED Provider: Debora Hamilton Dx/Rx/DC Orders Prescriptions: No Action levothyroxine 125 mcg tablet 125 mcg PO DAILY cyanocobalamin (vitamin B-12) 2,500 mcg tablet 2,500 mcg PO DAILY Vitamin B-6 50 mg capsule 50 mg PO DAILY albuterol sulfate [ProAir HFA] 90 mcg/actuation HFA aerosol inhaler 2 puff inhalation TID PRN (Reason: Shortness Of Breath) polyethylene glycol 3350 [Miralax] 17 gram powder in packet 17 g PO DAILY calcium carbonate-vitamin D3 500 mg(1,250mg) -125 unit tablet 1 tab PO DAILY Gemtesa 75 mg tablet 75 mg PO collagen .Route Rx Instructions: daily Ocuvite Adult 50 Plus 250 mg (90 mg-160 mg) capsule 1 cap PO DAILY losartan 50 MG tablet 50 mg PO DAILY albuterol sulfate 5 mg/mL solution for nebulization 2.5 mg inhalation Q4H PRN (Reason: shortness of breath or wheezing) Qty: 600 0RF dexamethasone 6 mg tablet 6 mg PO DAILY Qty: 7 0RF benzonatate 200 mg capsule 200 mg PO TID PRN (Reason: cough) Qty: 20 0RF guaifenesin 1,200 mg tablet extended release 12hr 1,200 mg PO Q12H Qty: 20 0RF ondansetron 4 mg tablet,disintegrating 4 mg PO Q8H PRN PRN (Reason: Nausea) Qty: 20 0RF doxycycline hyclate 100 mg capsule 100 mg PO BID lidocaine [Lidoderm] 5 % adhesive patch,medicated 1 patch topical DAILY Qty: 15 0RF Rx Instructions: leave on most painful area for up to 12 hrs Primary Care Provider: Esthela Newell Referrals: Esthela Newell, AGRICULTURAL ADVISER-C [Primary Care Provider] - Print Language: Mohawk
[2025-02-11 11:23] LABS: Hematocrit 43.2 % (37-47); Hemoglobin 14.5 g/dL (12.0-15.0); Immature Granulocytes Count 0.010 X10^3/uL (0.0-0.0); Mean Corp Hgb Conc 33.6 g/dL (32-36); Mean Corpuscular Volume 92.7 fL (81-99); Mean Platelet Vol. 9.1 fl (6.2-12.0); NRBC Flagged by Analyzer 0 % (0-5); Platelet Count 261 K/mm3 (150-450); RBC Distribution Width CV 13.8 % (11.6-14.6); RBC Distribution Width SD 46.8 fl (35.1-43.9); Red Blood Count 4.66 M/mm3 (4.2-5.4); White Blood Count 6.9 K/mm3 (4.4-11.0)
[2025-02-11 12:08] LABS: Lipase 48 U/L (13-75); Troponin T High Sensitivity 6 ng/L (<=14)
[2025-02-11 12:14] LABS: AST(SGOT) 205 U/L (<=31); Alanine Aminotransfer ALT/SGPT 117 U/L (<=34); Albumin, Serum 3.9 g/dL (3.4-4.8); Alkaline Phosphatase 61 U/L (35-104); Anion Gap 9 (5-15); BUN 18 mg/dL (4-19); BUN/Creat Ratio 21.8 RATIO (10-20); Bilirubin, Direct 0.16 mg/dL (0.00-0.30); Calcium,Total 9.9 mg/dL (7.6-11.0); Carbon Dioxide 25.4 mmol/L (21.0-32.0); Chloride 103 mmol/L (98-108); Estimated Creatinine Clearance 54.86 ml/min (50-250); Globulin 2.6 g/dL (2.2-4.2); Glucose 93 mg/dL (70-99); Potassium 4.4 mmol/L (3.3-5.1)
[2025-02-11] MEDS: 0.9% Normal Saline (500mL Bag) 500 ML 999 ML IV (12:47)
--- NOTE | 2025-02-11 13:28 | US_ITS ---
PROCEDURE: GALLBLADDER 02/11/2025 REASON FOR EXAM: CONCERN CHOLECYSTITIS, KNOWN GALLSTONES AND RUQ PA COMPARISON: Prior CT scan of the abdomen and pelvis done earlier in the day. FINDINGS: Liver: Grossly normal size and echotexture. Gallbladder: Solitary gallstone measuring 1.5 cm 1.7 cm x 0.7 cm. Small amount of pericholecystic fluid. Cholecystitis should be ruled out. Common bile duct: Dilated measuring up to 7.2 mm . Pancreas: Visualized portions are sonographically unremarkable. Other: Visualized portions of the right kidney are unremarkable. No right upper quadrant ascites. US/Gallbladder IMPRESSION: Solitary gallstone measuring 1.5 cm 1.7 cm x 0.7 cm. Small amount of pericholecystic fluid. Cholecystitis should be ruled out. Reading Location: [place] [id number]
[2025-02-11 14:13] LABS: Color, Urine Yellow (Yellow); Glucose, Dipstick Normal (Normal); Ketone-Dipstick Negative (Negative); Leukocyte Esterase-Dipstick 500 /ul (Negative); Nitrite-Dipstick Negative (Negative); Occult Blood-Urine 10 /ul (Negative); Protein-Dipstick 15 mg/dl (Negative); Specific Gravity, Urine 1.015 (1.002-1.030); Urine Bilirubin Dipstick Negative (Negative)
[2025-02-11 15:04] LABS: Troponin T High Sens 2 HR 7 ng/L (<=14)
--- NOTE | 2025-02-11 15:35 | CON.PCM.SX_ITS ---
Assessment & Plan Assessment/Plan (1) Cholelithiasis: QUALIFIERS: Cholelithiasis location: gallbladder Cholecystitis presence: with cholecystitis Cholecystitis acuity: acute (2) Elevated liver enzymes: PLAN: Plan Will await a.m. labs to evaluate liver function. Depending on labs may proceed with laparoscopic cholecystectomy versus ERCP first. Did discussed with patient. Reviewed the anatomy with the patient and discussed the procedure: Robotic versus laparoscopic cholecystectomy with possible cholangiograms, possible open. Review risks including but not limited to bleeding, infection, hernia, bile leak, retained gallstones requiring another procedure ERCP- Endoscopic Retrograde Cholangiopancreatography, injury to another organ (bile ducts, common bile duct, small bowel, etc.) and conversion to an open procedure. All questions were answered. Gia Deal M.D. Pager: [phone] [facility] [address] [place] [address], [facility], [address] [place] [address] Office: [phone] HPI Consult Data Date of Consult: 02/11/25 HPI Narrative HPI Narrative: MAURICIO SERRANO, is a 79 F who presents to the ER due to upper abdominal pain starting at 3 AM in the morning. This did awaken the patient was very painful for an hour and did get better. However in the morning did come back but not quite as bad. Patient currently denies any abdominal pain and states she is hungry, patient has had Toradol. The patient had elevated AST and ALT and normal white blood cell count and no shift. CT abdomen pelvis showed gallstone and ultrasound showed 1.7 cm gallstone, small amount of pericholecystic fluid, CBD 7.2 mm. Patient denies any previous similar symptoms or heartburn or reflux. Patient currently stressed that she is in the middle of moving and also just had a of a family friend. 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 [facility] Medical History Decreased radial pulse Right hand weakness Injury of right radial artery Obesity Superficial thrombophlebitis of left leg (08/2020) Hyperlipidemia Depression Venous insufficiency History of pulmonary embolus (PE) Anxiety GERD (gastroesophageal reflux disease) Hypothyroidism Essential hypertension Osteoarthritis Osteopenia Elevated d-dimer Home Medications ?Medication ?Instructions ?Recorded ?Last Taken ?Type losartan 50 mg tablet 50 mg PO DAILY BP 08/21/20 0 01/06/21 History albuterol sulfate 90 mcg/actuation 2 puff inhalation T ID PRN 12/21/20 Unknown History aerosol inhaler (ProAir HFA) Shortness Of Breath calcium 500 mg (as 1 tab PO DAILY 12/21/20 Unkn own History carbonate)-vitamin D3 3.125 mcg (125 unit) tablet polyethylene glycol 3350 17 gram 17 g PO DAILY 1 Unknown History oral powder packet (Miralax) cyanocobalamin (vitamin B-12) 2,500 mcg PO DAILY 12/28 Unknown History 2,500 mcg tablet levothyroxine 125 mcg tablet 125 mcg PO DAILY 12/28/20 01/06/21 History pyridoxine (vitamin B6) 50 mg 50 mg PO DAILY 12/28/20 Unknown History capsule (Vitamin B-6) collagen .Route 12/13/22 Unknown Hist ory [id number] 250 mg-dha 90 1 cap PO DAILY 12/13 Unknown History mg-epa 160 tr-xdja-fkvq-zeax capsule (Ocuvite Adult 50 Plus) vibegron 75 mg tablet (Gemtesa) 75 mg PO 12/13/22 Unkn own History albuterol sulfate 5 mg/mL(0.5 %) 2.5 mg (0.5 mL) inhal ation Q4H PRN 06/22/23 Unknown Rx solution for nebulization shortness of breath or wheez ing #600 mL benzonatate 200 mg capsule 200 mg PO TID PRN cough #20 caps 06/22/23 Unknown Rx dexamethasone 6 mg tablet 6 mg PO DAILY #7 tabs Unknown Rx guaifenesin 1,200 mg tablet, 1,200 mg PO Q12H #20 tabs 06/22/23 Unknown Rx extended release 12 hr ondansetron 4 mg disintegrating 4 mg PO Q8H PRN PRN Na usea #20 tabs 06/22/23 Unknown Rx tablet doxycycline hyclate 100 mg capsule 100 mg PO BID 05/18 Unknown History lidocaine 5 % topical patch 1 patch topical DAILY #15 ea 05/18/24 Unknown Rx (Lidoderm) Allergy/AdvReac Type Severity Reaction Status Date / Time propoxyphene (From Allergy Unknown Nausea Verified 02/11/25 10:39 Darvocet-N 100) celecoxib (From Celebrex) Allergy Other Verified 02/11/25 10:39 meloxicam Allergy Other Verified 02/11/25 10:39 metaxalone (From Skelaxin) Allergy Other Verified 02/11/25 10:39 Penicillins (PCN) Allergy Hives Verified 02/11/25 10:39 Sulfa (Sulfonamide Allergy Hives Verified 02/11/25 10:39 Antibiotics) tolterodine (From Detrol) AdvReac dizzy Verified 02/11/25 10:39 blurred vision Family History Mother Diabetes Hypertension Heart disease Had cardiac mass and had thoracotomy to remove mass Father CAD (coronary artery disease), Onset Age: 80 CABG Myocardial infarction, Onset Age: 80 Surgical History History of left heart catheterization (01/06/21) History of colonoscopy with polypectomy (12/22/20) History of cystocele 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) History of hysterectomy History of colonoscopy History of appendectomy Social History (Updated 02/11/25 @ 11:18 by Clarita Duarte) housing: house Smoking Status: Never smoker alcohol intake: never substance use type: does not use caffeine: Yes Type: tea Number of servings: 1 ROS Constitutional Constitutional: Reports anorexia; Denies fever(s) Eyes Eyes: Denies loss of central vision ENT HEENT: Denies dysphagia Cardiovascular Cardiovascular: Denies chest pain Respiratory/Chest Respiratory/Chest: Denies cough Gastrointestinal Gastrointestinal: Reports abdominal pain and nausea; Denies vomiting Genitourinary Genitourinary: Denies hematuria Musculoskeletal Musculoskeletal: Reports back pain Integumentary Integumentary: Denies jaundice Neurologic Neurologic: Denies focal weakness Psychiatric Psychiatric: Denies depression Endocrine Endocrinology: Denies palpitations Hematologic/Lymphatic Hematologic/Lymphatic: Denies easy bleeding Physical Exam Const alert, oriented x3 and no apparent distress HEENT normocephalic and head/scalp atraumatic Resp normal respiratory effort Cardio regular rate GI soft to palpation and non-tender; Negative for non-distended Palpation: Negative for guarding Extremity no clubbing, cyanosis or edema Neuro CN's II-XII intact bilaterally Psych mental status grossly normal Lab / Micro Data 02/11/25 10:43 02/11/25 10:43 Labs: Laboratory Results - last 24 hr 02/11/25 10:43: WBC 6.9, RBC 4.66, Hgb 14.5, Hct 43.2, MCV 92.7, MCH 31.1, MCHC 33.6, RDW Std Deviation 46.8 H, RDW Coeff of [place] 13.8, Plt Count 261, MPV 9.1, Immature Gran % (Auto) 0.100, Neut % (Auto) 63.8, Lymph % (Auto) 27.6, [place] % (Auto) 6.1, Eos % (Auto) 2.0, Baso % (Auto) 0.4, Absolute Neuts (auto) 4.4, Absolute Lymphs (auto) 1.89, Nucleated RBC % 0, Sodium 138, Potassium 4.4, Chloride 103, Carbon Dioxide 25.4, Anion Gap 9, BUN 18, Creatinine 0.81, Estim Creat Clear Calc 54.86, Est GFR (MDRD) Non-Af 73, BUN/Creatinine Ratio 21.8 H, Glucose 93, Calcium 9.9, Total Bilirubin 0.36, Direct Bilirubin 0.16, AST 205 H, ALT 117 H, Alkaline Phosphatase 61, Troponin T High Sens 6, Total Protein 6.5, Albumin 3.9, Globulin 2.6, Lipase 48 02/11/25 13:15: Troponin T Hi Sens 2 Hr 7 Imaging Radiology Impression Abdomen/Pelvis CT 02/11/25 11:02 IMPRESSION: The gallbladder is distended, containing gallstones and there is evidence of gallbladder wall thickening and some pericholecystic fluid as well as central intrahepatic biliary dilatation. The extrahepatic common bile duct however is not significantly enlarged measuring 8.7 mm which is consistent with patient's age. Findings suggest cholecystitis or perhaps biliary dyskinesia. Please correlate with physical exam HIDA scan may be of benefit There are periaortic retroperitoneal lymph nodes measuring up to 1.3 cm in short axis dimension which may be reactive. Submucosal thickening and edema in the gastric antrum and pyloric channel consistent with gastritis Retained stool in the colon, no demonstrated ileus or obstruction. Normal appendix visualized [place] Alert: Cholecystitis suspected The critical information above was relayed directly by me by telephone to Debora Hamilton on 02/11/2025 at 1:23 pm with readback verification. Reading Location: [id number] Gallbladder Ultrasound 02/11/25 13:28 IMPRESSION: Solitary gallstone measuring 1.5 cm 1.7 cm x 0.7 cm. Small amount of pericholecystic fluid. Cholecystitis should be ruled out. Reading Location: [facility] Charges/Coding Visit Charges Inpatient E&M: 25423 Init Hosp L3
[2025-02-11] MEDS: Piperacil/Tazobactam 3.375 GM in 0.9% Normal Saline (50mL MB+) 50 ML IV ×2 (15:59→20:55)
--- NOTE | 2025-02-11 16:23 | PCM.HP.STD ---
HPI - General General Date of Admission: 02/11/25 Date of Service: 02/11/25 Chief Complaint: Abdominal pain HPI Narrative MAURICIO SERRANO, is a 79 y/o F with a history of hypertension, hypothyroidism presented [facility] ED 02/11/2025 with complaints of generalized abdominal pain over the past couple of days wrapping around the abdomen on both sides. Has had some associated nausea. In the ED patient afebrile, heart rate of 70 and blood pressure 135/70, respiratory rate 17 and pulse ox 100% on room air. CBC and BMP fairly benign, liver profile did show AST of 205 and ALT of 117 with normal bilirubin, lipase within normal limits at 48, troponin of 6. CT abdomen pelvis showed distended gallbladder with gallstones and some wall thickening as well as pericholecystic fluid and central intrahepatic biliary dilation without significantly dilated common bile duct. Also had periaortic retroperitoneal lymph node measuring up to 1.3 cm possibly reactive, retained stool noted in the colon. Additionally submucosal thickening and edema in the gastric antrum and pyloric channel consistent with gastritis. Patient subsequently had a gallbladder ultrasound which showed solitary gallstone and small amount of pericholecystic fluid, cannot rule out cholecystitis. ED physician discussed with surgeon on-call, patient was given Zosyn for coverage possible choledocholithiasis. Surgery recommended hospitalist admission and to trend labs to decide on further course of action. Hospitalist contacted for admission. Patient evaluated at bedside. She reports a tight feeling in her upper abdomen over the the past week but at 3 AM she woke up with epigastric/upper abdominal pain nothing made it better, reports some chronic problems with constipation but denies any diarrhea, did have something pickle yesterday that she said did not agree with her and she has been having symptoms of indigestion all evening but denies any vomiting, had a little bit of a hard time urinating earlier but after she got fluids she was able to void, no other urinary complaints. Reports right now she is feeling little bit better with the pain medication [facility] Medical History Decreased radial pulse Right hand weakness Injury of right radial artery Obesity Superficial thrombophlebitis of left leg (08/2020) Hyperlipidemia Depression Venous insufficiency History of pulmonary embolus (PE) Anxiety GERD (gastroesophageal reflux disease) Hypothyroidism Essential hypertension Osteoarthritis Osteopenia Elevated d-dimer Home Medications ?Medication ?Instructions ?Recorded ?Last Taken ?Type losartan 50 mg tablet 50 mg PO DAILY BP 08/21/20 01/06/21 History albuterol sulfate 90 mcg/actuation 2 puff inhalation TID PRN 12/21/20 Unknown History aerosol inhaler (ProAir HFA) Shortness Of Breath calcium 500 mg (as 1 tab PO DAILY 12/21/20 Unknown History carbonate)-vitamin D3 3.125 mcg (125 unit) tablet polyethylene glycol 3350 17 gram 17 g PO DAILY 12/21/20 Unknown History oral powder packet (Miralax) cyanocobalamin (vitamin B-12) 2,500 mcg PO DAILY 12/28/20 Unknown History 2,500 mcg tablet levothyroxine 125 mcg tablet 125 mcg PO DAILY 12/28/20 01/06/21 History pyridoxine (vitamin B6) 50 mg 50 mg PO DAILY 12/28/20 Unknown History capsule (Vitamin B-6) collagen .Route 12/13/22 Unknown History apracdop-kcz-bszok5 250 mg-dha 90 1 cap PO DAILY 12/13/22 Unknown History mg-epa 160 sr-gbbx-fzek-zeax capsule (Ocuvite Adult 50 Plus) vibegron 75 mg tablet (Gemtesa) 75 mg PO 12/13/22 Unknown History albuterol sulfate 5 mg/mL(0.5 %) 2.5 mg (0.5 mL) inhalation Q4H PRN 06/22/23 Unknown Rx solution for nebulization shortness of breath or wheezing #600 mL benzonatate 200 mg capsule 200 mg PO TID PRN cough #20 caps 06/22/23 Unknown Rx dexamethasone 6 mg tablet 6 mg PO DAILY #7 tabs 06/22/23 Unknown Rx guaifenesin 1,200 mg tablet, 1,200 mg PO Q12H #20 tabs 06/22/23 Unknown Rx extended release 12 hr ondansetron 4 mg disintegrating 4 mg PO Q8H PRN PRN Nausea #20 tabs 06/22/23 Unknown Rx tablet doxycycline hyclate 100 mg capsule 100 mg PO BID 05/18/24 Unknown History lidocaine 5 % topical patch 1 patch topical DAILY #15 ea 05/18/24 Unknown Rx (Lidoderm) Allergy/AdvReac Type Severity Reaction Status Date / Time propoxyphene (From Allergy Unknown Nausea Verified 02/11/25 10:39 Darvocet-N 100) celecoxib (From Celebrex) Allergy Other Verified 02/11/25 10:39 meloxicam Allergy Other Verified 02/11/25 10:39 metaxalone (From Skelaxin) Allergy Other Verified 02/11/25 10:39 Penicillins (PCN) Allergy Hives Verified 02/11/25 10:39 Sulfa (Sulfonamide Allergy Hives Verified 02/11/25 10:39 Antibiotics) tolterodine (From Detrol) AdvReac dizzy Verified 02/11/25 10:39 blurred vision Family History Mother Diabetes Hypertension Heart disease Had cardiac mass and had thoracotomy to remove mass Father CAD (coronary artery disease), Onset Age: 80 CABG Myocardial infarction, Onset Age: 80 Surgical History History of left heart catheterization (01/06/21) History of colonoscopy with polypectomy (12/22/20) History of cystocele 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) History of hysterectomy History of colonoscopy History of appendectomy Social History (Updated 02/11/25 @ 11:18 by Clarita Duarte) housing: house Smoking Status: Never smoker alcohol intake: never substance use type: does not use caffeine: Yes Type: tea Number of servings: 1 ROS ROS Narrative General: Denies fever/chills HENT: Little bit of headache presently since she has been in the ED e, denies stuffy nose, denies sore throat EYES: Denies changes in vision Resp: Denies cough, denies shortness of breath Cardiac: Denies chest pain GI: Some indigestion, no change in bowel, upper abdominal pain mostly in the epigastric region : Denies changes in urination Extremity: Denies swelling MSK: Denies weakness Neuro: Denies any numbness/tingling Heme: Denies any bleeding or bruising Skin: Denies rashes Psychiatric: No complaints voiced Vital Signs Vital Signs Vital Signs: 02/11/25 10:37 02/11/25 12:37 02/11/25 14:00 Temperature 96.8 F L Temperature Source Temporal Pulse Rate 70 80 70 Respiratory Rate 17 Blood Pressure 135/70 H 138/70 H 140/70 H Blood Pressure Mean 91 92 93 Pulse Ox 100 100 99 Oxygen Delivery Method Room Air 02/11/25 15:34 02/11/25 16:00 Temperature 98.9 F Temperature Source Pulse Rate 70 80 Respiratory Rate 18 Blood Pressure 140/70 H 141/69 H Blood Pressure Mean 93 93 Pulse Ox 99 99 Oxygen Delivery Method Weight Weight: 80.9 kg Body Mass Index (BMI) 31.6 Physical Exam Narrative General: Alert, oriented, no apparent distress HEENT: Atraumatic, normocephalic Eyes: Anicteric, normal conjunctiva, extraocular movements grossly intact Neck: Supple Respiratory: Clear to auscultation bilaterally, normal respiratory effort Cardiovascular: Regular rate and rhythm GI: Not overtly tender, no rebound, guarding, rigidity Extremities: No edema Musculoskeletal: Moving all extremities Neuro: No overt focal neurological deficits Skin: No rashes appreciated Psych: Cooperative Results Lab / Micro Data 02/11/25 10:43 02/11/25 10:43 Labs: Laboratory Results - last 24 hr 02/11/25 10:43: WBC 6.9, RBC 4.66, Hgb 14.5, Hct 43.2, MCV 92.7, MCH 31.1, MCHC 33.6, RDW Std Deviation 46.8 H, RDW Coeff of Raven 13.8, Plt Count 261, MPV 9.1, Immature Gran % (Auto) 0.100, Neut % (Auto) 63.8, Lymph % (Auto) 27.6, [place] % (Auto) 6.1, Eos % (Auto) 2.0, Baso % (Auto) 0.4, Absolute Neuts (auto) 4.4, Absolute Lymphs (auto) 1.89, Nucleated RBC % 0, Sodium 138, Potassium 4.4, Chloride 103, Carbon Dioxide 25.4, Anion Gap 9, BUN 18, Creatinine 0.81, Estim Creat Clear Calc 54.86, Est GFR (MDRD) Non-Af 73, BUN/Creatinine Ratio 21.8 H, Glucose 93, Calcium 9.9, Total Bilirubin 0.36, Direct Bilirubin 0.16, AST 205 H, ALT 117 H, Alkaline Phosphatase 61, Troponin T High Sens 6, Total Protein 6.5, Albumin 3.9, Globulin 2.6, Lipase 48 02/11/25 13:15: Troponin T Hi Sens 2 Hr 7 Imaging Radiology Impression Abdomen/Pelvis CT 02/11/25 11:02 IMPRESSION: The gallbladder is distended, containing gallstones and there is evidence of gallbladder wall thickening and some pericholecystic fluid as well as central intrahepatic biliary dilatation. The extrahepatic common bile duct however is not significantly enlarged measuring 8.7 mm which is consistent with patient's age. Findings suggest cholecystitis or perhaps biliary dyskinesia. Please correlate with physical exam HIDA scan may be of benefit There are periaortic retroperitoneal lymph nodes measuring up to 1.3 cm in short axis dimension which may be reactive. Submucosal thickening and edema in the gastric antrum and pyloric channel consistent with gastritis Retained stool in the colon, no demonstrated ileus or obstruction. Normal appendix visualized [place] Alert: Cholecystitis suspected The critical information above was relayed directly by me by telephone to Debora Hamilton on 02/11/2025 at 1:23 pm with readback verification. Reading Location: [facility] Gallbladder Ultrasound 02/11/25 13:28 IMPRESSION: Solitary gallstone measuring 1.5 cm 1.7 cm x 0.7 cm. Small amount of pericholecystic fluid. Cholecystitis should be ruled out. Reading [facility] Assessment & Plan Assessment/Plan (1) Elevated liver enzymes: (2) Abdominal pain: PLAN: Plan # Abdominal pain - Imaging with concern for cholecystitis though pain is somewhat more diffuse and her bilirubin is within normal limits - Repeat liver function in the a.m. - Continue Zosyn - Surgery consult - CT did also show a stool burden and possible gastritis - Will start on bowel regimen and PPI #Hypertension - Holding losartan as patient is getting ketorolac for pain control, can likely restart and DC #Hypothyroidism -Continue Synthroid #DVT ppx: SCDs Yane Harkins MD Time spent in the patient's overall evaluation, decision-making process, review of diagnostic data, adjustment of management, discussion with other providers, nursing and ancillary staff involved in patient's care documentation, 56 Minutes Charges/Coding Visit Charges Inpatient E&M: 88638 Init Hosp L2
[2025-02-11] MEDS: Pantoprazole Sodium 40 MG in 0.9% Normal Saline (100mL MB+) 100 ML 330 MG IV (16:47)
[2025-02-11] MEDS: Senna/Docusate Sodium 1 Tablet 2 TABLET PO (20:54)
[2025-02-11] MEDS: 0.9% Normal Saline (250mL Bag) 250 ML 15 ML IV (20:55)
[2025-02-11] MEDS: MELATONIN 10 MG TABLET PO (20:56)
[2025-02-11] MEDS: 0.9% Saline Lock 10 ML Syringe IV (20:58)
[2025-02-12] VITALS (13 sets, daily range): BP systolic 117–139; BP diastolic 48–76; PULSE 56–84; RESP 16–18; TEMP 36.1–36.6; O2SAT 92–98
[2025-02-12 04:27] LABS: Hematocrit 39.2 % (37-47); Hemoglobin 13.1 g/dL (12.0-15.0); Immature Granulocytes Count 0.020 X10^3/uL (0.0-0.0); Mean Corp Hgb Conc 33.4 g/dL (32-36); Mean Corpuscular Volume 91.2 fL (81-99); Mean Platelet Vol. 8.6 fl (6.2-12.0); NRBC Flagged by Analyzer 0 % (0-5); Platelet Count 233 K/mm3 (150-450); RBC Distribution Width CV 13.8 % (11.6-14.6); RBC Distribution Width SD 46.4 fl (35.1-43.9); Red Blood Count 4.30 M/mm3 (4.2-5.4); White Blood Count 5.3 K/mm3 (4.4-11.0)
[2025-02-12 05:00] LABS: AST(SGOT) 622 U/L (<=31); Alanine Aminotransfer ALT/SGPT 616 U/L (<=34); Albumin, Serum 3.5 g/dL (3.4-4.8); Alkaline Phosphatase 86 U/L (35-104); Anion Gap 9 (5-15); BUN 18 mg/dL (4-19); BUN/Creat Ratio 20.4 RATIO (10-20); Calcium,Total 9.2 mg/dL (7.6-11.0); Carbon Dioxide 23.1 mmol/L (21.0-32.0); Chloride 103 mmol/L (98-108); Estimated Creatinine Clearance 49.87 ml/min (50-250); Globulin 2.1 g/dL (2.2-4.2); Glucose 91 mg/dL (70-99); Potassium 4.2 mmol/L (3.3-5.1)
[2025-02-12] MEDS: Piperacil/Tazobactam 3.375 GM in 0.9% Normal Saline (50mL MB+) 50 ML IV ×3 (05:41→21:13)
--- NOTE | 2025-02-12 06:55 | MRI_ITS ---
PROCEDURE: MRCP ABDOMEN WITHOUT CONTRAST 02/12/2025 REASON FOR EXAM: ELEVATED ENZYMES TECHNIQUE: MRCP ABDOMEN WITHOUT CONTRAST Multiplanar and multisequence images were obtained. 3D MRCP reconstructions were provided. CONTRAST: None COMPARISON: February 11, 2025 FINDINGS: Liver: Normal Biliary: Mild gallbladder hydrops. No wall thickening but there is pericholecystic fluid between the liver edge and gallbladder wall. 21 mm calculus is seen dependently near the distal body/neck. No intrahepatic or extrahepatic biliary ductal dilation. No choledocholithiasis. Pancreas: Normal. No evidence of pancreas divisum. Spleen: Normal Adrenals: Normal Kidneys: No collecting system dilation or calculus seen. Small subcentimeter cortical cysts are seen bilaterally, [id number]-[id number]-[id number]. These are statistically benign. Peritoneum / Retroperitoneum: No mass. Trace perihepatic fluid and trace Sera splenic fluid. Lymph Nodes: None appear enlarged. Major Vessels: Normal caliber Bones: Unremarkable MRI/MRCP Abdomen without Contrast IMPRESSION: 1. Gallstone. Pericholecystic fluid. Gallbladder hydrops. Cholecystitis nicki uld be excluded. 2. No biliary duct dilation or choledocholithiasis. 3. Small renal cysts. Bosniak 1. No follow-up required. Reading Location: [id number]
--- NOTE | 2025-02-12 07:38 | PN.SURG_ITS ---
Subjective Subjective Patient denies any abdominal pain overnight. Objective Data Objective Data Vital Signs: Vital Signs Temp Pulse Resp BP Pulse Ox O2 Del Method 97.8 F 84 16 126/67 H 97 Room Air 02/12/25 03:50 02/12/25 03:50 02/12/25 03:50 02/12/25 03:50 02/12/25 03:50 02/12/25 04:26 Oxygen Delivery Method Room Air Weight: 174 lb Body Mass Index (BMI) 30.8 Intake & Output: Intake and Output for Last 24 Hours 02/10/25 02/11/25 02/12/25 23:59 23:59 23:59 Intake Total 1157.25 / 1157.25 Balance 1157.25 / 1157.25 Lab / Micro Data 02/12/25 04:17 02/12/25 04:17 Labs: Laboratory Results - last 24 hr 02/11/25 10:43: WBC 6.9, RBC 4.66, Hgb 14.5, Hct 43.2, MCV 92.7, MCH 31.1, MCHC 33.6, RDW Std Deviation 46.8 H, RDW Coeff of Raven 13.8, Plt Count 261, MPV 9.1, Immature Gran % (Auto) 0.100, Neut % (Auto) 63.8, Lymph % (Auto) 27.6, [place] % (Auto) 6.1, Eos % (Auto) 2.0, Baso % (Auto) 0.4, Absolute Neuts (auto) 4.4, Absolute Lymphs (auto) 1.89, Nucleated RBC % 0, Sodium 138, Potassium 4.4, Chloride 103, Carbon Dioxide 25.4, Anion Gap 9, BUN 18, Creatinine 0.81, Estim Creat Clear Calc 54.86, Est GFR (MDRD) Non-Af 73, BUN/Creatinine Ratio 21.8 H, Glucose 93, Calcium 9.9, Total Bilirubin 0.36, Direct Bilirubin 0.16, AST 205 H, ALT 117 H, Alkaline Phosphatase 61, Troponin T High Sens 6, Total Protein 6.5, Albumin 3.9, Globulin 2.6, Lipase 48 02/11/25 13:15: Troponin T Hi Sens 2 Hr 7 02/11/25 14:05: Urine Color Yellow, Urine Clarity Clear, Urine pH 8.0, Ur Specific [place] 1.015, Urine Protein 15 H, Urine Glucose (UA) Normal, Urine Ketones Negative, Urine Occult Blood 10 H, Urine Nitrite Negative, Urine Bilirubin Negative, Urine Urobilinogen Normal, Ur Leukocyte Esterase 500 H 02/12/25 04:17: WBC 5.3, RBC 4.30, Hgb 13.1, Hct 39.2, MCV 91.2, MCH 30.5, MCHC 33.4, RDW Std Deviation 46.4 H, RDW Coeff of [place] 13.8, Plt Count 233, MPV 8.6, Immature Gran % (Auto) 0.400, Neut % (Auto) 51.7, Lymph % (Auto) 34.2, [place] % (Auto) 7.7, Eos % (Auto) 5.1 H, Baso % (Auto) 0.9, Absolute Neuts (auto) 2.7, Absolute Lymphs (auto) 1.81, Nucleated RBC % 0, Sodium 135, Potassium 4.2, Chloride 103, Carbon Dioxide 23.1, Anion Gap 9, BUN 18, Creatinine 0.88, Estim Creat Clear Calc 49.87 L, Est GFR (MDRD) Non-Af 66, BUN/Creatinine Ratio 20.4 H, Glucose 91, Calcium 9.2, Total Bilirubin 0.57, AST 622 H, ALT 616 H, Alkaline Phosphatase 86, Total Protein 5.6 L, Albumin 3.5, Globulin 2.1 L, Albumin/Globulin Ratio 1.7, TSH 34.700 H Radiography Diagnostic Testing: Radiology Impression Abdomen/Pelvis CT 02/11/25 11:02 IMPRESSION: The gallbladder is distended, containing gallstones and there is evidence of gallbladder wall thickening and some pericholecystic fluid as well as central intrahepatic biliary dilatation. The extrahepatic common bile duct however is not significantly enlarged measuring 8.7 mm which is consistent with patient's age. Findings suggest cholecystitis or perhaps biliary dyskinesia. Please correlate with physical exam HIDA scan may be of benefit There are periaortic retroperitoneal lymph nodes measuring up to 1.3 cm in short axis dimension which may be reactive. Submucosal thickening and edema in the gastric antrum and pyloric channel consistent with gastritis Retained stool in the colon, no demonstrated ileus or obstruction. Normal appendix visualized [place] Alert: Cholecystitis suspected The critical information above was relayed directly by me by telephone to Debora Hamilton on 02/11/2025 at 1:23 pm with readback verification. Reading Location: [id number] Gallbladder Ultrasound 02/11/25 13:28 IMPRESSION: Solitary gallstone measuring 1.5 cm 1.7 cm x 0.7 cm. Small amount of pericholecystic fluid. Cholecystitis should be ruled out. Reading Location: [facility] Physical Exam Narrative Patient is currently using the restroom Assessment & Plan Assessment/Plan (1) Cholelithiasis: QUALIFIERS: Cholelithiasis location: gallbladder Cholecystitis presence: with cholecystitis Cholecystitis acuity: acute (2) Elevated liver enzymes: PLAN: Plan The patient's AST and ALT are up to 600s from 1-200 -- will plan check MRCP. Depending on MRCP would determine if patient would need ERCP versus lap roni with cholangiograms today. Discussed with patient. Reviewed the anatomy with the patient and discussed the procedure: Robotic versus laparoscopic cholecystectomy with possible cholangiograms, possible open. Review risks including but not limited to bleeding, infection, hernia, bile leak, retained gallstones requiring another procedure ERCP- Endoscopic Retrograde Cholangiopancreatography, injury to another organ (bile ducts, common bile duct, small bowel, etc.) and conversion to an open procedure. All questions were answered. Gia Deal M.D. Pager: [phone] [facility] [address] [place] [address], [facility], [address] [place] [address] Office: [phone] Charges/Coding Visit Charges Inpatient E&M: 16672 Subs Hosp L2
--- NOTE | 2025-02-12 09:28 | CASEMGMT ---
Dx:Cholelithiasis LACE: 2 6-Clicks: 19 Medical record reviewed and patient evaluated for identification of discharge planning needs. Based on this review, at this time criteria are not present to indicate a need for discharge planning. Will remain available to assist with discharge planning needs as identified or requested.
[2025-02-12] MEDS: 0.9% Saline Lock 10 ML Syringe IV (09:58)
[2025-02-12] MEDS: LEVOTHYROXINE SODIUM 100 MCG VIAL IV (09:59)
--- NOTE | 2025-02-12 10:59 | PCM.PN.HOSP ---
Reason for Visit Chief Complaint: Abdominal pain Subjective Subjective Saw patient at bedside this morning, daughter present. Patient was sitting back comfortably in bed, conversing normally, in no acute distress. She had just completed her MRCP and was given a dose of Ativan prior to that, so she did feel slightly sedated compared to her normal. Denied any fevers or chills. No other acute concerns at this time. Objective Data Objective Data Vital Signs: Vital Signs Temp Pulse Resp BP Pulse Ox O2 Del Method 97.5 F L 59 L 17 117/69 98 Room Air 02/12/25 08:00 02/12/25 08:00 02/12/25 08:00 02/12/25 08:00 02/12/25 08:00 02/12/25 08:00 Oxygen Delivery Method Room Air Weight: 78.925 kg Body Mass Index (BMI) 30.8 Intake & Output: Intake and Output for Last 24 Hours 02/10/25 02/11/25 02/12/25 23:59 23:59 23:59 Intake Total 1157.25 / 1157.25 155.46 / 155.46 Balance 1157.25 / 1157.25 155.46 / 155.46 Lab / Micro Data 02/12/25 04:17 02/12/25 04:17 Labs: Laboratory Results - last 24 hr 02/11/25 10:43: WBC 6.9, RBC 4.66, Hgb 14.5, Hct 43.2, MCV 92.7, MCH 31.1, MCHC 33.6, RDW Std Deviation 46.8 H, RDW Coeff of [place] 13.8, Plt Count 261, MPV 9.1, Immature Gran % (Auto) 0.100, Neut % (Auto) 63.8, Lymph % (Auto) 27.6, [place] % (Auto) 6.1, Eos % (Auto) 2.0, Baso % (Auto) 0.4, Absolute Neuts (auto) 4.4, Absolute Lymphs (auto) 1.89, Nucleated RBC % 0, Sodium 138, Potassium 4.4, Chloride 103, Carbon Dioxide 25.4, Anion Gap 9, BUN 18, Creatinine 0.81, Estim Creat Clear Calc 54.86, Est GFR (MDRD) Non-Af 73, BUN/Creatinine Ratio 21.8 H, Glucose 93, Calcium 9.9, Total Bilirubin 0.36, Direct Bilirubin 0.16, AST 205 H, ALT 117 H, Alkaline Phosphatase 61, Troponin T High Sens 6, Total Protein 6.5, Albumin 3.9, Globulin 2.6, Lipase 48 02/11/25 13:15: Troponin T Hi Sens 2 Hr 7 02/11/25 14:05: Urine Color Yellow, Urine Clarity Clear, Urine pH 8.0, Ur Specific [place] 1.015, Urine Protein 15 H, Urine Glucose (UA) Normal, Urine Ketones Negative, Urine Occult Blood 10 H, Urine Nitrite Negative, Urine Bilirubin Negative, Urine Urobilinogen Normal, Ur Leukocyte Esterase 500 H 02/12/25 04:17: WBC 5.3, RBC 4.30, Hgb 13.1, Hct 39.2, MCV 91.2, MCH 30.5, MCHC 33.4, RDW Std Deviation 46.4 H, RDW Coeff of [place] 13.8, Plt Count 233, MPV 8.6, Immature Gran % (Auto) 0.400, Neut % (Auto) 51.7, Lymph % (Auto) 34.2, [place] % (Auto) 7.7, Eos % (Auto) 5.1 H, Baso % (Auto) 0.9, Absolute Neuts (auto) 2.7, Absolute Lymphs (auto) 1.81, Nucleated RBC % 0, Sodium 135, Potassium 4.2, Chloride 103, Carbon Dioxide 23.1, Anion Gap 9, BUN 18, Creatinine 0.88, Estim Creat Clear Calc 49.87 L, Est GFR (MDRD) Non-Af 66, BUN/Creatinine Ratio 20.4 H, Glucose 91, Calcium 9.2, Total Bilirubin 0.57, AST 622 H, ALT 616 H, Alkaline Phosphatase 86, Total Protein 5.6 L, Albumin 3.5, Globulin 2.1 L, Albumin/Globulin Ratio 1.7, TSH 34.700 H Radiography Diagnostic Testing: Radiology Impression Abdomen/Pelvis CT 02/11/25 11:02 IMPRESSION: The gallbladder is distended, containing gallstones and there is evidence of gallbladder wall thickening and some pericholecystic fluid as well as central intrahepatic biliary dilatation. The extrahepatic common bile duct however is not significantly enlarged measuring 8.7 mm which is consistent with patient's age. Findings suggest cholecystitis or perhaps biliary dyskinesia. Please correlate with physical exam HIDA scan may be of benefit There are periaortic retroperitoneal lymph nodes measuring up to 1.3 cm in short axis dimension which may be reactive. Submucosal thickening and edema in the gastric antrum and pyloric channel consistent with gastritis Retained stool in the colon, no demonstrated ileus or obstruction. Normal appendix visualized [place] Alert: Cholecystitis suspected The critical information above was relayed directly by me by telephone to Debora Hamilton on 02/11/2025 at 1:23 pm with readback verification. Reading Location: [id number] Gallbladder Ultrasound 02/11/25 13:28 IMPRESSION: Solitary gallstone measuring 1.5 cm 1.7 cm x 0.7 cm. Small amount of pericholecystic fluid. Cholecystitis should be ruled out. Reading [facility] Physical Ex[facility] Const alert, oriented x3 and no apparent distress Constitutional Narrative: Pleasant elderly female, mildly fatigued appearing but otherwise sitting back comfortably in bed, conversing normally, in no acute distress. General Appearance: cooperative and comfortable HEENT normocephalic, head/scalp atraumatic, hearing grossly normal bilaterally, nasal mucous membranes and turbinates normal and moist oral mucous membranes Eyes PERRL, EOMs intact bilaterally and conjunctivae normal Neck full ROM Chest inspection of chest normal Resp normal respiratory effort, normal air movement, no use of accessory muscles and clear to auscultation bilaterally Cardio regular rate, regular rhythm, no murmurs and peripheral pulses 2+ throughout GI GI Narrative: Mild tenderness to palpation in right upper quadrant. Abdomen otherwise soft and nondistended. Back/Spine normal ROM Extremity normal to inspection, full ROM and no pedal edema Skin no rashes or lesions noted Psych mental status grossly normal Assessment & Plan Assessment/Plan (1) Acute cholecystitis: PLAN: Plan Patient is an 79-year-old female who presented to [facility] ED on 02/11/2025 with abdominal pain. 1. Acute cholecystitis ? Surgery following. CT abdomen pelvis on admit with findings concerning for acute cholecystitis. Gallbladder ultrasound showed solitary large gallstone with small amount of pericholecystic fluid. MRCP showed 21 mm calculus in the distal body/neck of the gallbladder with pericholecystic fluid consistent with acute cholecystitis. S/p laparoscopic cholecystectomy with Dr. Deal on the afternoon of 02/12. Tolerated procedure well, no intraoperative complications noted. Per surgery, patient okay for diet postprocedure and if patient doing well tomorrow morning, should be okay for discharge home. Will continue IV Zosyn while inpatient, with plan for p.o. antibiotic course on discharge. 2. Hypertension ? Home losartan held for procedure, should be fine to resume on discharge. 3. Hypothyroidism with elevated TSH ? TSH 34 on admission. Free T4 ordered. No evidence of myxedema coma. As patient was n.p.o., did opt to give 1 dose of IV Synthroid 100 mg on 02/12. Resume home Synthroid on 02/13 and will need to repeat thyroid testing in the outpatient setting in the next 4 to 6 weeks. 4. Class I obesity ? BMI 30.8 on admit. Complicates hospital course and care. DVT prophylaxis: Lovenox CODE STATUS: Full code, verified Expected disposition: Home, 1 to 2 days Total clinical time spent by myself addressing the patient's medical issues, reviewing all the data, and collaborating with patient's care team: 35 minutes. Charges/Coding Visit Charges Inpatient E&M: 26594 Subs Hosp L2
[2025-02-12] MEDS: INDOCYANINE GREEN 3.75 MG in Syringe 1.5 ML 999 MG IV (11:30)
[2025-02-12] MEDS: Lactated Ringers 1,000 ML 15 ML IV (11:43)
--- NOTE | 2025-02-12 12:03 | PCM.PRE.AN2 ---
ASA Classification* ASA Classification ASA Classification: 2 and E Assessment & Plan Anesthesia* Anesthesia Assessment Anesthesia Assessment: Discussed sedation and/or anesthesia options, risks, benefits, and alternatives with patient/parents/legal guardian/POA. Questions invited. The patient/parents/legal guardian/POA seems to understand and agrees to proceed with anesthesia plan. Reviewed the physical assessment, medical history, allergy history and patient home medications list prior to surgery/procedure/anesthetic and documented any changes. Performed airway and anesthesia risk assessments. Anesthesia Type Anesthesia Type: General History Source History Obtained from:: Patient and Chart Anesthesia Focused Assessment* Temperature: 97.5 F Pulse Rate: 59 Blood Pressure: 117/69 Respiratory Rate: 17 Pulse Ox: 98 Airway Assessment Mouth opens: >3 cm Mallampati Score: II Labs Anesthesia Preop lab: CBC WBC 5.3 K/mm3 (4.4-11.0) 02/12/25 04:17 02/12/25 RBC 4.30 M/mm3 (4.2-5.4) 02/12/25 04:17 02/12/25 Hgb 13.1 g/dL (12.0-15.0) 02/12/25 04:17 02/12/25 Hct 39.2 % (37-47) 02/12/25 04:17 02/12/25 Plt Count 233 K/mm3 (150-450) 02/12/25 04:17 02/12/25 CHEMISTRY Potassium 4.2 mmol/L (3.3-5.1) 02/12/25 04:17 02/12/25 Sodium 135 mmol/L (133-145) 02/12/25 04:17 02/12/25 BUN 18 mg/dL (4-19) 02/12/25 04:17 02/12/25 Creatinine 0.88 mg/dL (0.70-1.20) 02/12/25 04:17 02/12/25 Glucose 91 mg/dL (70-99) 02/12/25 04:17 02/12/25 TSH 34.700 uIU/mL (0.300-4.200) H 02/12/25 04:17 02/12/25 COAG Pre-Assessment Diagnosis/Proposed Procedure Planned Operative Procedure(s): Robotic Laparoscopic Cholecystectomy Anesthesia History Anesthesia History - occupational therapist per diem: Anesthesia History - occupational therapist per diem Hx Hospitalization Any Problems With Anesthesia No 02/12/25 06:03 Cholinesterase deficiency No 02/12/25 06:03 You/Your Family Experience No 02/12/25 06:03 fever (hyperthermia) with Relationship Recent Exposure to Contagious No 02/12/25 06:03 Disease Does patient have nerve No 02/12/25 06:03 stimulator Patient instructed to have device shut off --Does patient have Pacemaker or ICD? When Was Last Pacemaker Check QUESTION #4 FULL TEXT: You/Your Family Experience fever (hyperthermia) with Anesthesia Last Oral Intake Last Oral intake: Last Oral Intake NPO since Meds taken in AM with sips of water? Meds patient instructed to take am of surgery PONV PONV - occupational therapist per diem: PONV - occupational therapist per diem Female HX of Motion Sickness HX of N/V After Surgery Non-Smoker Duration of Surgery greater than 60 minutes Number of Risk Factors PONV Score Height & Weight Height & Weight: Anesthesia: Height & Weight Height 5 ft 3 in 02/11/25 17:19 Weight: 78.925 kg 02/11/25 17:19 Body Mass Index (BMI) 30.8 02/11/25 17:19 Respiratory Assessment Respiratory Assessment - occupational therapist per diem: Respiratory Tract Infection Hx - occupational therapist per diem Hx Respiratory Tract Infection No 02/12/25 06:03 STOP Sleep Apnea STOP Sleep Apnea - occupational therapist per diem: STOP Sleep Apnea - occupational therapist per diem Hx Hypertension Yes 02/11/25 17:19 Hx Sleep Apnea No 02/11/25 17:19 CPAP BIPAP Do you snore loudly (louder No 02/11/25 17:19 than talking or can be heard Do you often feel tired/ No 02/11/25 17:19 fatigued/ sleepy during daytime? Has anyone observed you stop No 02/11/25 17:19 breathing during sleep? STOP Results Negative 02/11/25 17:19 QUESTION #5 FULL TEXT : Do you snore loudly (louder than talking or can be heard through closed doors)? 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 Specify any problems Hx of Preganancy in last 3 N/A 02/11/25 17:19 Months Nurse Filling Out Transfusion [email or web address] 02/11/25 17:19 & Questions: Date: 02/11/25 02/11/25 17:19 Time: 18:29 02/11/25 17:19 Patient unable to answer at this time (ie. confused, unrespo /Reproduction History /Reproductive History - occupational therapist per diem: /Reproductive Hx- occupational therapist per diem Hx Now No 02/12/25 06:03 Gestational Age (in weeks): EDC: Hx Hx Para Hx Section SAB No 02/12/25 06:03 Active Medications Active Medications: Current Medications Generic Name Dose Route Start Last Admin Trade Name Freq PRN Reason Stop Dose Admin Acetaminophen 650 mg 02/11/25 17:18 Acetaminophen 325 Mg Tablet PO Q6H PRN PRN Pain 1-10 Or Fever >100.7 Albuterol Sulfate 2.5 mg 02/11/25 17:18 Albuterol 2.5 Mg/3 Ml Vial.Neb. INHALATION Q2H PRN PRN SOB &/OR WHEEZING Cyanocobalamin 2,500 mcg 02/12/25 10:00 02/12/25 10:40 Cyanocobalamin 500 Mcg Tablet PO Not Given DAILY REJI Hydralazine HCl 5 mg 02/11/25 17:18 Hydralazine 20 Mg/Ml Vial IV Q8H PRN PRN prn SBP >185 Protocol Pantoprazole Sodium 40 mg/ 100 mls @ 330 mls/hr 02/11/25 15:30 02/11/25 17:12 Sodium Chloride IV Infused Q24 REJI Infusion Piperacillin Sod/Tazobactam 50 mls @ 12.5 mls/hr 02/11/25 22:00 02/12/25 11:09 Sod 3.375 gm/ Sodium Chloride IV Infused Q8 REJI Infusion Sodium Chloride 250 mls @ 15 mls/hr 02/11/25 20:37 02/12/25 11:09 IV 15 mls/hr .[id number] PRN Infusion Additional IVPB Infusion Indocyanine Green 3.75 mg/ N/A 1.5 mls @ 999 mls/hr 02/12/25 12:40 02/12/25 11:30 IV 02/12/25 12:41 999 mls/hr PREOP ONE Administration Lactated Ringer's 1,000 mls @ 15 mls/hr 02/12/25 11:45 02/12/25 11:43 IV 15 mls/hr .Q48H REJI Administration Ketorolac Tromethamine 15 mg 02/11/25 17:18 02/11/25 20:54 Ketorolac 15 Mg/Ml Vial IV 02/16/25 17:18 15 mg Q6H PRN PRN Administration Pain Score 1-10 Levothyroxine Sodium 125 mcg 02/12/25 06:00 02/12/25 06:49 Levothyroxine 125 Mcg Tablet PO Not Given DAILY@0600 REJI Melatonin 10 mg 02/11/25 17:23 02/11/25 20:56 Melatonin 10 Mg Tablet PO 10 mg QHS PRN PRN Administration INSOMNIA Ondansetron HCl 4 mg 02/11/25 17:18 Ondansetron 4 Mg/2 Ml Vial IV Q8H PRN PRN NAUSEA/VOMITING Senna/Docusate Sodium 2 tablet 02/11/25 22:00 02/12/25 10:40 Senna/Docusate Sodium 1 Tablet PO Not Given BID REJI Sodium Chloride 10 - 40 ml 02/11/25 18:34 02/12/25 09:58 0.9% Saline Lock 10 Ml Syringe IV 10 ml UD PRN Administration SALINE FLUSH PFSH Medical History Decreased radial pulse Right hand weakness Injury of right radial artery Obesity Superficial thrombophlebitis of left leg (08/2020) Hyperlipidemia Depression Venous insufficiency History of pulmonary embolus (PE) Anxiety GERD (gastroesophageal reflux disease) Hypothyroidism Essential hypertension Osteoarthritis Osteopenia Elevated d-dimer Home Medications ?Medication ?Instructions ?Recorded ?Last Taken ?Type losartan 50 mg tablet 50 mg PO DAILY BP 08/21/20 01/06/21 History albuterol sulfate 90 mcg/actuation 2 puff inhalation TID PRN 12/21/20 Unknown History aerosol inhaler (ProAir HFA) Shortness Of Breath calcium 500 mg (as 1 tab PO DAILY vitamin 12/21/20 Unknown History carbonate)-vitamin D3 3.125 mcg (125 unit) tablet polyethylene glycol 3350 17 gram 17 g PO DAILY 12/21/20 Unknown History oral powder packet (Miralax) cyanocobalamin (vitamin B-12) 2,500 mcg PO DAILY vitamin 12/28/20 Unknown History 2,500 mcg tablet levothyroxine 125 mcg tablet 125 mcg PO DAILY 12/28/20 01/06/21 History pyridoxine (vitamin B6) 50 mg 50 mg PO DAILY 12/28/20 Unknown History capsule (Vitamin B-6) [id number] 250 mg-dha 90 1 cap PO DAILY 12/13/22 Unknown History mg-epa 160 ao-hlln-ybze-zeax capsule (Ocuvite Adult 50 Plus) vibegron 75 mg tablet (Gemtesa) 75 mg PO 12/13/22 Unknown History albuterol sulfate 5 mg/mL(0.5 %) 2.5 mg (0.5 mL) inhalation Q4H PRN 06/22/23 Unknown Rx solution for nebulization shortness of breath or wheezing #600 mL benzonatate 200 mg capsule 200 mg PO TID PRN cough #20 caps 06/22/23 Unknown Rx dexamethasone 6 mg tablet 6 mg PO DAILY #7 tabs 06/22/23 Unknown Rx guaifenesin 1,200 mg tablet, 1,200 mg PO Q12H #20 tabs 06/22/23 Unknown Rx extended release 12 hr ondansetron 4 mg disintegrating 4 mg PO Q8H PRN PRN Nausea #20 tabs 06/22/23 Unknown Rx tablet doxycycline hyclate 100 mg capsule 100 mg PO BID 05/18/24 Unknown History lidocaine 5 % topical patch 1 patch topical DAILY #15 ea 05/18/24 Unknown Rx (Lidoderm) Allergy/AdvReac Type Severity Reaction Status Date / Time propoxyphene (From Allergy Unknown Nausea Verified 02/11/25 10:39 Darvocet-N 100) celecoxib (From Celebrex) Allergy Other Verified 02/11/25 10:39 meloxicam Allergy Other Verified 02/11/25 10:39 metaxalone (From Skelaxin) Allergy Other Verified 02/11/25 10:39 Penicillins (PCN) Allergy Hives Verified 02/11/25 10:39 Sulfa (Sulfonamide Allergy Hives Verified 02/11/25 10:39 Antibiotics) tolterodine (From Detrol) AdvReac dizzy Verified 02/11/25 10:39 blurred vision Family History Mother Diabetes Hypertension Heart disease Had cardiac mass and had thoracotomy to remove mass Father CAD (coronary artery disease), Onset Age: 80 CABG Myocardial infarction, Onset Age: 80 Surgical History History of left heart catheterization (01/06/21) History of colonoscopy with polypectomy (12/22/20) History of cystocele 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
[2025-02-12] MEDS: Lactated Ringers 1,000 ML 1000 ML IV (13:15)
[2025-02-12] MEDS: Lidocaine 1% (5 ml sdv) 5 ML Vial 4 ML IV (13:23)
[2025-02-12] MEDS: fentaNYL 100 MCG/2 ML Ampul 50 MCG IV (13:23)
--- NOTE | 2025-02-12 13:25 | GALL_PTH ---
PATIENT: MAURICIO SERRANO LOC: MS3 U#:[id number] AGE/SX: 79/F ROOM: [facility] RE02/11/[address]: Dr. Obdulio Alfred DO : 1945 BED: 1 DIS: 02/13/2025 SPEC #: [id number] RECD: 02/12/25 16:08 STATUS: EMILY REAbraham #: [id number] DARREL: 02/12/25 13:[address]: Gia Deal DEPT: SURGICAL PATHOLOGY RECD BY: Adam Costa ENTERED: 02/15/25 09:01 SP TYPE: GALLBLADDE OTHR DR: Dr. Braden Vo, DO Dr. Obdulio Alfred, MD Esthela Bellamy Dr., INSURANCE MARKETING SPECIALIST-C Tissues: A - Gallbladder, NOS Procedures: Surgery Specimen Level III Comments: @ Ordering doctor for SUIII edited from to @ by MARY BETH at 02/15/25 0902 @ Submitting doctor edited from to @ by MARY BETH at 02/15/2502 HEADER OPERATION: Robotic cholecystectomy PRE-OP DIAGNOSIS: Cholelithiasis TISSUE SUBMITTED: A- Gallbladder MICROSCOPIC DIAGNOSIS A. Gallbladder, cholecystectomy: - Low grade dysplasia, intestinal metaplasia - see note. - Chronic cholecystitis with cholelithiasis and cholesterolosis. Note: No high grade dysplasia or invasive carcinoma is seen. The entire gallbladder was submitted for histologic evaluation. MICROSCOPIC DESCRIPTION Slides are reviewed. GROSS DESCRIPTION A. Received in formalin labeled with the patient's name and date of . Designated as gallbladder is a 10.0 x 4.4 x 4.1 cm green, distended and somewhat edematous, intact gallbladder with attached patent cystic duct (inked black, shaved). A lymph node is not present. Opening reveals dark green tenacious bile and numerous irregular to bosselated, yellow choleliths, ranging 0.1 cm to 2.3 cm. The mucosa is dark green and granular with a maximum wall thickness of 0.2 cm. Cholesterolosis is present. Regroover sections are submitted in 1 cassette. OH 02/15/2025 A. Additional high school admissions representative sections are submitted in cassettes A2-A4, following histopathologic review. OH 02/19/2025 A. The remainder of the specimen (devoid of choleliths) is entirely submitted in cassettes A5-A20, following histopathologic review. OH 02/23/2025 CPT:[id number] ADDENDUM ADDENDUM ADDENDUM ADDENDUM 03/02/2025 16:37 ADDENDUM 03/02/2025 16:37 ADDENDUM 03/02/2025 16:37 ADDENDUM 03/02/2025 16:37 ADDENDUM 03/02/2025 16:37 The case is reviewed per Dr Deal's request. Low grade dysplasia is multifocal, randomly scattered in the gallbladder. The surgical margin is not involved.
[2025-02-12] MEDS: Bupiv/Epi 0.25% 30 ML Vial (14:46)
--- NOTE | 2025-02-12 14:52 | PCM.OPRPT ---
Operative Report (Standard) Operative Information Date of Procedure: 02/12/25 Pre-Operative Diagnosis: Acute cholecystitis, elevated liver functions Post-Operative Diagnosis: Same Surgery/Procedure Performed: Robotic cholecystectomy attempted cholangiograms exploration manager: Yes Satellite Dish Technician: Kady Villanueva Tasks completed by corporate administrative assistant: Opening & closing and Retracting Type of Anesthesia: General/Supplemental RN Documented Start/Stop Times: Operation Date: 02/12/25 13:25 Case Time Into Pre-Op 02/12/25 11:39 Out of Pre-Op 02/12/25 13:07 Anesthesia Start 02/12/25 13:15 Into Room 02/12/25 13:15 Procedure Start 02/12/25 13:32 Procedure End 02/12/25 15:00 Anesthesia End 02/12/25 15:08 Into Recovery 02/12/25 15:08 Out of Room 02/12/25 15:08 Procedure Start Time: 13:32 Procedure Stop Time: 15:00 Select all DRAINS/GRAFTS/IMPLANTS that apply: None Special Medications: Zosyn 3.375 g IV x 8hr for acute cholecystitis Estimated Blood Loss: 10 cc Specimen collected: Yes Description of specimen(s) removed: Gallbladder and gallstone Description of surgery: Indications: this is a 79 year-old female who developed abdominal pain/nausea/vomiting and on workup was found to have cholelithiasis, acute cholecystitis, elevated liver functions?MRCP showed normal common duct. Laparoscopic cholecystectomy was elected. Description procedure: The patient was placed on operating table in supine position. A timeout was completed verifying correct patient, procedure, site, position and special equipment prior to beginning procedure. General Anesthesia was induced. The abdomen was prepped and draped in usual sterile fashion. An incision was made in the natural skin line below the umbilicus. The fascia was elevated and incised. The peritoneum was elevated and incised. Entry into the peritoneum was confirmed visually and no bowel was noted in the vicinity of the incision. Blanco trocar was placed. The abdomen was insufflated with carbon dioxide to a pressure of 12-15 mmHg. Patient tolerated insufflation well. The laparoscope was then inserted and abdomen inspected. No injuries from initial trocar placement were noted. Additional trochars were then inserted in the following locations 8 mm trocar left upper quadrant and 2 more 8 mm trochars in right lower quadrant and left lower quadrant. The abdomen was inspected no abnormalities were found. The table is placed in reverse Trendelenburg position with the right side up. Robot was docked. The adhesions between the gallbladder and omentum were taken down carefully. The dome of the gallbladder was grasped with atraumatic grasper passed through the lateral port and retracted over the dome of the liver. Infundibulum was then grasped with atraumatic grasper through the midclavicular port and retracted to the right lower quadrant. This maneuver exposed Calot's triangle. The peritoneum overlying the gallbladder infundibulum was then incised and cystic duct and artery identified and circumferentially dissected. ICG was used to visualize the cystic duct. A 14-gauge Angiocath used to insert the cholangiogram catheter. An enterotomy was made with the scissors at the cystic duct. The catheter was threaded into the cystic duct. However due to positioning of the bed with the docked robot unable to get the C arm in the appropriate location cholangiograms were aborted. The cystic duct and artery were then doubly clipped and divided close to the gallbladder. The gallbladder then dissected from its peritoneal attachments by electrocautery, there is noted to be edema between the gallbladder and the liver. Hemostasis was checked and the gallbladder was removed using the endoscopic retrieval bag through the umbilical port. The gallbladder is passed off table as specimen. The gallbladder fossa was irrigated with saline and hemostasis obtained. There is no evidence of bleeding from the gallbladder fossa or cystic artery leakage of bile from the cystic duct stump. Secondary trochars removed under direct vision. No bleeding was noted the trocar sites. The laparoscope was withdrawn and umbilical trocar removed. The abdomen was allowed to collapse. The fascia of the 12 mm trocar was closed with a [id number] 0 Vicryl suture. The skin was closed with sutures of 4-0 Monocryl and Steri-Strips. The patient was extubated. The patient tolerated procedure well and was taken to the postanesthesia care unit in stable condition. Surgical Findings: See op note Complications Complications: No
--- NOTE | 2025-02-12 14:56 | DCINST_ITS ---
Discharge Instructions Diet Discharge Diet: Light diet - advance as tolerated Activity Discharge Activity: May Not Drive (while taking narcotic pain medications.) May shower in (days): 1 Lifting Restrictions: no lifting >20 lbs x 2 wks, no strenuous exercise for 4 wks Dressing / Incision Call your doctor if your incision/area has: Continuous Slow Oozing, Sudden Increased Bleeding, Increased Pain/ Swelling, Increased Redness, Foul Smelling Discharge and Swelling at the incision site Call your doctor if you observe: Fever of 101 or Higher Remove Dressing in: 2 days Cleanse incision/area with: Soap & Water Additional Dressing/Incision Instructions:: Steri-Strips will fall off in 7 to 10 days, if they do not fall off okay to remove after 10 days. Follow Up Care Please Follow Up With: Gia Deal MD When: Call the office for a follow-up appointment 2 weeks; after 5 PM and on the weekends call [phone] with any concerns. Test Results: Test results from this visit will be discussed in further detail at your follow- up appointment, if applicable. Discharge Plan Admission Admit Date/Time: 02/11/25 16:23 Attending Provider: Braden Vo Primary Care Provider: Esthela Newell Consulting Providers: Gia Deal; Yane Harkins Discharge Orders/Prescriptions Prescriptions: New tramadol 50 mg tablet 50 mg PO Q6H PRN (Reason: pain) Qty: 10 0RF Continued levothyroxine 125 mcg tablet 125 mcg PO DAILY cyanocobalamin (vitamin B-12) 2,500 mcg tablet 2,500 mcg PO DAILY Vitamin B-6 50 mg capsule 50 mg PO DAILY albuterol sulfate [ProAir HFA] 90 mcg/actuation HFA aerosol inhaler 2 puff inhalation TID PRN (Reason: Shortness Of Breath) polyethylene glycol 3350 [Miralax] 17 gram powder in packet 17 g PO DAILY calcium carbonate-vitamin D3 500 mg(1,250mg) -125 unit tablet 1 tab PO DAILY Gemtesa 75 mg tablet 75 mg PO Ocuvite Adult 50 Plus 250 mg (90 mg-160 mg) capsule 1 cap PO DAILY losartan 50 MG tablet 50 mg PO DAILY albuterol sulfate 5 mg/mL solution for nebulization 2.5 mg inhalation Q4H PRN (Reason: shortness of breath or wheezing) Qty: 600 0RF dexamethasone 6 mg tablet 6 mg PO DAILY Qty: 7 0RF benzonatate 200 mg capsule 200 mg PO TID PRN (Reason: cough) Qty: 20 0RF guaifenesin 1,200 mg tablet extended release 12hr 1,200 mg PO Q12H Qty: 20 0RF ondansetron 4 mg tablet,disintegrating 4 mg PO Q8H PRN PRN (Reason: Nausea) Qty: 20 0RF doxycycline hyclate 100 mg capsule 100 mg PO BID lidocaine [Lidoderm] 5 % adhesive patch,medicated 1 patch topical DAILY Qty: 15 0RF Rx Instructions: leave on most painful area for up to 12 hrs Referrals / Follow Up: Esthela Newell, NATALIA-C [Primary Care Provider] -
--- NOTE | 2025-02-12 15:14 | PCM.POST.ANE ---
Anesthesia: Postop Eval I Current Vital Signs Temperature: 97.3 F Pulse Rate: 61 Blood Pressure: 127/48 Respiratory Rate: 16 Pulse Ox: 94 Oxygen Delivery Method: Room Air Assessment Airway patent: Yes Spontaneous unlabored respirations: Yes Mental status: Awake and Calm nausea: No Vomiting: No Anesthesia Complication: No Fluid Hydration Crystalloid volume administer (ml): 1,000 Total IV fluid infused: 1,000 Progress Note Anesthesia document: Postop Eval 1 completed: Yes
--- NOTE | 2025-02-12 15:47 | POSTOPAN2_ITS ---
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 Spontaneous unlabored Yes 02/12/25 15:15 [employer]VAS [email or web address] respirations Mental status Awake,Calm 02/12/25 15:15 [email or web address] nausea No 02/12/25 15:15 CANVAS GOODS [email or web address] Vomiting No 02/12/25 15:15 CANVAS [email or web address] Anesthesia Postop Eval I: Fluid Summary Crystalloid volume administer 1,000 02/12/25 15:15 CANVAS [email or web address] (ml) Colloids volume administered ( ml) Blood Product volume administered (ml) Total IV fluid infused 1,000 02/12/25 15:15 CANVAS GOODS [email or web address] Anesthesia Postop Eval I: Summary Notes Anesthesia Complication No 02/12/25 15:15 CANVAS [email or web address] Anesthesia Complication Comment: Post-operative progress note Anesthesia: Postop Eval II Evaluation Mental status: Calm and Asleep Pain Level: 1 nausea: No Vomiting: No Complications Anesthesia Complication: No
--- NOTE | 2025-02-12 15:47 | PCM.POSTANE2 ---
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 Spontaneous unlabored Yes 02/12/25 15:15 PRINTED CIRCUIT [email or web address] [email or web address] respirations Mental status Awake,Calm 02/12/25 15:15 PRINTED CIRCUIT [email or web address] nausea No 02/12/25 15:15 PRINTED CIRCUIT [email or web address] Vomiting No 02/12/25 15:15 PRINTED CIRCUIT [email or web address] Anesthesia Postop Eval I: Fluid Summary Crystalloid volume administer 1,000 02/12/25 15:15 PRINTED CIRCUIT [email or web address] (ml) Colloids volume administered ( ml) Blood Product volume administered (ml) Total IV fluid infused 1,000 02/12/25 15:15 PRINTED CIRCUIT [email or web address] [email or web address] Anesthesia Postop Eval I: Summary Notes Anesthesia Complication No 02/12/25 15:15 PRINTED CIRCUIT [email or web address] [email or web address] Anesthesia Complication Comment: Post-operative progress note Anesthesia: Postop Eval II Evaluation Mental status: Calm and Asleep Pain Level: 1 nausea: No Vomiting: No Complications Anesthesia Complication: No
[2025-02-12] MEDS: Senna/Docusate Sodium 1 Tablet 2 TABLET PO (19:47)
[2025-02-13] MEDS: Piperacil/Tazobactam 3.375 GM in 0.9% Normal Saline (50mL MB+) 50 ML IV (04:53)
[2025-02-13] MEDS: 0.9% Saline Lock 10 ML Syringe IV (04:54)
[2025-02-13 05:03] VITALS: BP 114/57; PULSE 68; RESP 16; TEMP 36.3; O2SAT 98
[2025-02-13 05:41] LABS: Hematocrit 40.7 % (37-47); Hemoglobin 13.6 g/dL (12.0-15.0); Mean Corp Hgb Conc 33.4 g/dL (32-36); Mean Corpuscular Volume 92.1 fL (81-99); Mean Platelet Vol. 8.9 fl (6.2-12.0); Platelet Count 244 K/mm3 (150-450); RBC Distribution Width CV 13.8 % (11.6-14.6); RBC Distribution Width SD 47.5 fl (35.1-43.9); Red Blood Count 4.42 M/mm3 (4.2-5.4); White Blood Count 12.3 K/mm3 (4.4-11.0)
[2025-02-13 06:14] LABS: AST(SGOT) 268 U/L (<=31); Alanine Aminotransfer ALT/SGPT 462 U/L (<=34); Albumin, Serum 3.7 g/dL (3.4-4.8); Alkaline Phosphatase 79 U/L (35-104); Anion Gap 10 (5-15); BUN 17 mg/dL (4-19); BUN/Creat Ratio 16.6 RATIO (10-20); Bilirubin, Direct 0.21 mg/dL (0.00-0.30); Calcium,Total 9.2 mg/dL (7.6-11.0); Carbon Dioxide 23.0 mmol/L (21.0-32.0); Chloride 102 mmol/L (98-108); Estimated Creatinine Clearance 43.03 ml/min (50-250); Globulin 2.4 g/dL (2.2-4.2); Glucose 109 mg/dL (70-99); Potassium 4.5 mmol/L (3.3-5.1)
--- NOTE | 2025-02-13 08:45 | PCM.PN.SRG ---
Subjective Subjective Patient is doing well and tolerating a diet Objective Data Objective Data Vital Signs: Vital Signs Temp Pulse Resp BP Pulse Ox O2 Del Method O2 Flow Rate 97.4 F L 68 16 114/57 L 98 Room Air 2 02/13/25 05:03 02/13/25 05:03 02/13/25 05:03 02/13/25 05:03 02/13/25 05:03 02/13/25 05:03 02/12/25 15:45 Oxygen Flow Rate (L/min) 2 Oxygen Delivery Method Room Air Weight: 174 lb Body Mass Index (BMI) 30.8 Intake & Output: Intake and Output for Last 24 Hours 02/11/25 02/12/25 02/13/25 23:59 23:59 23:59 Intake Total 1157.25 / 1157.25 384.25 / 384.25 50 / 50 Output Total 5 / 5 Balance 1157.25 / 1157.25 379.25 / 379.25 50 / 50 Lab / Micro Data 02/13/25 05:20 02/13/25 05:20 Labs: Laboratory Results - last 24 hr 02/12/25 04:17: Free T4 0.60 L 02/13/25 05:20: WBC 12.3 H, RBC 4.42, Hgb 13.6, Hct 40.7, MCV 92.1, MCH 30.8, MCHC 33.4, RDW Std Deviation 47.5 H, RDW Coeff of Raven 13.8, Plt Count 244, MPV 8.9, Sodium 135, Potassium 4.5, Chloride 102, Carbon Dioxide 23.0, Anion Gap 10, BUN 17, Creatinine 1.02, Estim Creat Clear Calc 43.03 L, Est GFR (MDRD) Non-Af 55 L, BUN/Creatinine Ratio 16.6, Glucose 109 H, Calcium 9.2, Total Bilirubin 0.51, Direct Bilirubin 0.21, AST 268 H, ALT 462 H, Alkaline Phosphatase 79, Total Protein 6.1, Albumin 3.7, Globulin 2.4, Albumin/Globulin Ratio 1.5 Micro: Microbiology 02/11/25 14:05 Urine, Random Urine Culture - Preliminary Culture exhibits no growth. Radiography Diagnostic Testing: Radiology Impression MRCP 02/12/25 06:55 IMPRESSION: 1. Gallstone. Pericholecystic fluid. Gallbladder hydrops. Cholecystitis should be excluded. 2. No biliary duct dilation or choledocholithiasis. 3. Small renal cysts. Bosniak 1. No follow-up required. Reading Location: [id number] Physical Exam Const oriented x3 and no apparent distress Resp normal respiratory effort GI soft to palpation and non-tender Assessment & Plan Assessment/Plan (1) Acute cholecystitis: PLAN: Patient is doing well after laparoscopic cholecystectomy. I will discharge her home today.
[2025-02-13 09:54] VITALS: BP 106/49; PULSE 63; RESP 16; TEMP 36.8; O2SAT 98
[2025-02-13] MEDS: Senna/Docusate Sodium 1 Tablet 2 TABLET PO (10:00)
--- NOTE | 2025-02-13 11:56 | DCINST_ITS ---
Discharge Instructions DC O2, CPAP, BIPAP needs Home O2 Discharge instructions: No Dressing / Incision Discharge Activity: Return to Normal Activity May shower in (days): 1 Weight Bearing Status: Full weight bearing Dressing / Incision Call your doctor if your incision/area has: Continuous Slow Oozing, Sudden Increased Bleeding, Increased Pain/ Swelling, Increased Redness, Foul Smelling Discharge and Swelling at the incision site Call your doctor if you observe: Fever of 101 or Higher Cleanse incision/area with: Soap & Water Additional Dressing/Incision Instructions:: Steri-Strips will fall off in 7 to 10 days, if they do not fall off okay to remove after 10 days. Follow Up Care Please Follow Up With: Gia Deal MD Test Results: Test results from this visit will be discussed in further detail at your follow- up appointment, if applicable. Discharge Plan Admission Admit Date/Time: 02/11/25 16:23 Primary Reason for Your Visit: RAY CHOLEY. Cholecystitis Attending Provider: Obdulio Alfred Primary Care Provider: Esthela Newell Consulting Providers: Gia Deal; Yane Harkins; Braden Vo Discharge Orders/Prescriptions Prescriptions: New tramadol 50 mg tablet 50 mg PO Q6H PRN (Reason: pain) Qty: 10 0RF Continued levothyroxine 125 mcg tablet 125 mcg PO DAILY cyanocobalamin (vitamin B-12) 2,500 mcg tablet 2,500 mcg PO DAILY Vitamin B-6 50 mg capsule 50 mg PO DAILY albuterol sulfate [ProAir HFA] 90 mcg/actuation HFA aerosol inhaler 2 puff inhalation TID PRN (Reason: Shortness Of Breath) polyethylene glycol 3350 [Miralax] 17 gram powder in packet 17 g PO DAILY calcium carbonate-vitamin D3 500 mg(1,250mg) -125 unit tablet 1 tab PO DAILY Gemtesa 75 mg tablet 75 mg PO Ocuvite Adult 50 Plus 250 mg (90 mg-160 mg) capsule 1 cap PO DAILY losartan 50 MG tablet 50 mg PO DAILY albuterol sulfate 5 mg/mL solution for nebulization 2.5 mg inhalation Q4H PRN (Reason: shortness of breath or wheezing) Qty: 600 0RF dexamethasone 6 mg tablet 6 mg PO DAILY Qty: 7 0RF benzonatate 200 mg capsule 200 mg PO TID PRN (Reason: cough) Qty: 20 0RF guaifenesin 1,200 mg tablet extended release 12hr 1,200 mg PO Q12H Qty: 20 0RF ondansetron 4 mg tablet,disintegrating 4 mg PO Q8H PRN PRN (Reason: Nausea) Qty: 20 0RF doxycycline hyclate 100 mg capsule 100 mg PO BID lidocaine [Lidoderm] 5 % adhesive patch,medicated 1 patch topical DAILY Qty: 15 0RF Rx Instructions: leave on most painful area for up to 12 hrs Referrals / Follow Up: Esthela Newell, NATALIA-C [Primary Care Provider] - Gia Deal MD [Med Staff - Active Staff] - See Referral Note (Call office for an appointment in 2 weeks) Disposition Disposition (needs filled in before D/C Order can be placed): Home, Self Care
--- NOTE | 2025-02-13 11:59 | PCM.DC.SUM ---
Providers Date of Admission: 02/11/25 Date of Discharge: 02/13/25 Primary Care Physician: MARGARET Wesley Consultations 02/11/25 17:18 Consult: General Surgery Routine Consulting Provider: Gia Deal Reason for Consult: Abdominal pain, possible cholecystitis EMERGENT Consult: No MD Notified: Yes Date Notified: 02/11/25 Time Notified: 16:38 Method of Notification: ED Physician Initiated Reason For Visit: POSSIBLE CHOLEDOCHO VS CHOLECYSTITIS Diagnosis Discharge Diagnosis (1) Acute cholecystitis: Status: Acute Code(s): K81.0 - Acute cholecystitis Plan 1. Acute cholecystitis #2 essential hypertension #3 hypothyroidism Medications at Discharge Home Medications losartan 50 mg tablet 50 mg PO DAILY BP 08/21/20 albuterol sulfate 90 mcg/actuation aerosol inhaler (ProAir HFA) 2 puff inhalation TID PRN Shortness Of Breath 12/21/20 calcium 500 mg (as carbonate)-vitamin D3 3.125 mcg (125 unit) tablet 1 tab PO DAILY vitamin 12/21/20 polyethylene glycol 3350 17 gram oral powder packet (Miralax) 17 g PO DAILY 12/21/20 cyanocobalamin (vitamin B-12) 2,500 mcg tablet 2,500 mcg PO DAILY vitamin 12/28/20 levothyroxine 125 mcg tablet 125 mcg PO DAILY 12/28/20 pyridoxine (vitamin B6) 50 mg capsule (Vitamin B-6) 50 mg PO DAILY 12/28/20 [id number] 250 mg-dha 90 mg-epa 160 [id number] capsule (Ocuvite Adult 50 Plus) 1 cap PO DAILY 12/13/22 vibegron 75 mg tablet (Gemtesa) 75 mg PO 12/13/22 albuterol sulfate 5 mg/mL(0.5 %) solution for nebulization 2.5 mg (0.5 mL) inhalation Q4H PRN shortness of breath or wheezing #600 mL 06/22/23 benzonatate 200 mg capsule 200 mg PO TID PRN cough #20 caps 06/22/23 dexamethasone 6 mg tablet 6 mg PO DAILY #7 tabs 06/22/23 guaifenesin 1,200 mg tablet, extended release 12 hr 1,200 mg PO Q12H #20 tabs 06/22/23 ondansetron 4 mg disintegrating tablet 4 mg PO Q8H PRN PRN Nausea #20 tabs 06/22/23 doxycycline hyclate 100 mg capsule 100 mg PO BID 05/18/24 lidocaine 5 % topical patch (Lidoderm) 1 patch topical DAILY #15 ea 05/18/24 tramadol 50 mg tablet 50 mg PO Q6H PRN pain #10 tabs 02/12/25 Hospital Course Operations cholecystecomy Procedures None Summary of Care Provided Minutes Spent on Discharge: 31 Hospital Course: This 79-year-old white female was seen in the emergency room at [facility] with complaints of generalized abdominal pain x 48 hours. She had associated nausea also, workup in the emergency room included labs which showed an elevated AST of 205 and an ALT of 117, bilirubin was normal, lipase was normal. CT of the abdomen pelvis showed distended gallbladder with with gallstones and some wall thickening as well as pericholecystic fluid and central intrahepatic biliary dilatation without significantly dilated common bile duct. Patient had a gallbladder ultrasound which showed a solitary gallstone and small amount of pericholecystic fluid indicating possible cholecystitis. General surgery was contacted, patient was given IV antibiotics and the hospitalist was contacted for admission. Patient was admitted to [place] [id number] and seen in consultation by general surgery, patient underwent a robotic cholecystectomy on 02/12/2025, due to positioning of the patient, cholangiograms were not able to be obtained. Patient did well after surgery and she had no untoward events during her hospitalization. On 02/13/2025, patient was seen and examined: On examination she appeared in good health and spirits, she does not appear to be in any distress. Vital signs as documented. Skin warm and dry and without overt rashes. Neck without JVD, thyroid appears normal, trachea is midline, neck is supple. Lungs clear, normal air movement was noted. Heart exam notable for regular rhythm, normal sounds and absence of murmurs, rubs or gallops. Abdomen unremarkable and without evidence of organomegaly, masses, or abdominal aortic enlargement, bowel sounds are present in all 4 quadrants, no abdominal tenderness was noted. Extremities nonedematous, no cyanosis was noted, no clubbing was noted. Neuro: Cranial nerves II through XII are grossly intact, no focal motor deficits were noted, sensation to light touch and pinprick is intact, motor exam 5/5 throughout. Psych: Patient is alert and oriented x3, she does not appear anxious or depressed, she does not appear agitated. Patient appeared stable for discharge home on 02/13/2025 Weight / BMI Weight Weight: 78.925 kg Body Mass Index (BMI) 30.8 ABG / Lab / Microbiology Data 02/13/25 05:20 02/13/25 05:20 Laboratory: Laboratory Results - last 24 hr 02/12/25 04:17: Free T4 0.60 L 02/13/25 05:20: WBC 12.3 H, RBC 4.42, Hgb 13.6, Hct 40.7, MCV 92.1, MCH 30.8, MCHC 33.4, RDW Std Deviation 47.5 H, RDW Coeff of Raven 13.8, Plt Count 244, MPV 8.9, Sodium 135, Potassium 4.5, Chloride 102, Carbon Dioxide 23.0, Anion Gap 10, BUN 17, Creatinine 1.02, Estim Creat Clear Calc 43.03 L, Est GFR (MDRD) Non-Af 55 L, BUN/Creatinine Ratio 16.6, Glucose 109 H, Calcium 9.2, Total Bilirubin 0.51, Direct Bilirubin 0.21, AST 268 H, ALT 462 H, Alkaline Phosphatase 79, Total Protein 6.1, Albumin 3.7, Globulin 2.4, Albumin/Globulin Ratio 1.5 Microbiology: Microbiology 02/11/25 14:05 Urine, Random Urine Culture - Final Mixed Gram Positive Organisms D/C Instructions May shower in (days): 1 Weight Bearing Status: Full weight bearing Call your doctor if your incision/area has: Continuous Slow Oozing, Sudden Increased Bleeding, Increased Pain/ Swelling, Increased Redness, Foul Smelling Discharge and Swelling at the incision site Call your doctor if you observe: Fever of 101 or Higher Cleanse incision/area with: Soap & Water Additional Dressing/Incision Instructions: Steri-Strips will fall off in 7 to 10 days, if they do not fall off okay to remove after 10 days. DC O2, CPAP, BIPAP Needs Home O2 Discharge instructions: No Please Follow Up With: Gia Deal MD When: Call the office for a follow-up appointment 2 weeks; after 5 PM and on the weekends call [phone] with any concerns. Meaningful Use Info Meaningful Use Meaningful Use Diagnoses (Choose all that apply): None applicable Discharge Plan Admission Admit Date/Time: 02/11/25 16:23 Primary Reason for Your Visit: RAY CHOLEY. Cholecystitis Attending Provider: Obdulio Alfred Primary Care Provider: Esthela Newell Consulting Providers: Gia Deal; Yane Harkins; Braden Vo Discharge Orders/Prescriptions Prescriptions: New tramadol 50 mg tablet 50 mg PO Q6H PRN (Reason: pain) Qty: 10 0RF Continued levothyroxine 125 mcg tablet 125 mcg PO DAILY cyanocobalamin (vitamin B-12) 2,500 mcg tablet 2,500 mcg PO DAILY Vitamin B-6 50 mg capsule 50 mg PO DAILY albuterol sulfate [ProAir HFA] 90 mcg/actuation HFA aerosol inhaler 2 puff inhalation TID PRN (Reason: Shortness Of Breath) polyethylene glycol 3350 [Miralax] 17 gram powder in packet 17 g PO DAILY calcium carbonate-vitamin D3 500 mg(1,250mg) -125 unit tablet 1 tab PO DAILY Gemtesa 75 mg tablet 75 mg PO Ocuvite Adult 50 Plus 250 mg (90 mg-160 mg) capsule 1 cap PO DAILY losartan 50 MG tablet 50 mg PO DAILY albuterol sulfate 5 mg/mL solution for nebulization 2.5 mg inhalation Q4H PRN (Reason: shortness of breath or wheezing) Qty: 600 0RF dexamethasone 6 mg tablet 6 mg PO DAILY Qty: 7 0RF benzonatate 200 mg capsule 200 mg PO TID PRN (Reason: cough) Qty: 20 0RF guaifenesin 1,200 mg tablet extended release 12hr 1,200 mg PO Q12H Qty: 20 0RF ondansetron 4 mg tablet,disintegrating 4 mg PO Q8H PRN PRN (Reason: Nausea) Qty: 20 0RF doxycycline hyclate 100 mg capsule 100 mg PO BID lidocaine [Lidoderm] 5 % adhesive patch,medicated 1 patch topical DAILY Qty: 15 0RF Rx Instructions: leave on most painful area for up to 12 hrs Referrals / Follow Up: Gia Deal MD [Med Staff - Active Staff] - See Referral Note (Call office for an appointment in 2 weeks) Esthela Newell, [employer] [Primary Care Provider] - Disposition Disposition (needs filled in before D/C Order can be placed): Home, Self Care Charges/Coding Visit Charges Inpatient E&M: 96822 Disch Hosp >30min
[2025-02-13 12:42] VITALS: BP 106/55; PULSE 64; RESP 16; TEMP 36.5; O2SAT 99
== END 2025-02-13 12:54 | disposition home or self-care (01) | DRG 419 ==
LOC: ED 15:40 → MS3 16:28
PROVIDERS: Hospitalist; Student in an Organized Health Care Education/Training Program; Surgery; Admitting Provider Internal Medicine; Emergency Provider Student in an Organized Health Care Education/Training Program; PCP Nurse Practitioner Family; Visit Provider Internal Medicine
PROC: 0FT44ZZ Resection of Gallbladder, Percutaneous Endoscopic Approach (ICD-10-PCS; CPT 47562; principal; 2025-02-12 13:05)
DX: K80.00 Calculus of gallbladder with acute cholecystitis without obstruction (principal); E03.9 Hypothyroidism, unspecified; I10 Essential (primary) hypertension; E66.811 Obesity, class 1; K29.70 Gastritis, unspecified, without bleeding; E78.5 Hyperlipidemia, unspecified; Z68.30 Body mass index [BMI] 30.0-30.9, adult; R74.8 Abnormal levels of other serum enzymes; Z79.890 Hormone replacement therapy; Z79.899 Other long term (current) drug therapy; Z86.711 Personal history of pulmonary embolism
CPT/HCPCS: 36415; 74177; 74181; 76705; 80048; 80053; 80076; 81002; 82248; 83690; 84439; 84443; 84484; 85025; 85027; 87086; 87088; 88304; 93005; 97802; 99284; Q9967; A4216; J2405

== ENCOUNTER 2025-05-29 20:39 | Emergency (ER) | payer MEDICARE, SELFPAY ==
[2025-05-29 20:40] VITALS: BP 142/79; PULSE 87; RESP 18; TEMP 36.6; O2SAT 99; BMI 29.1
--- NOTE | 2025-05-29 20:50 | RAD_ITS ---
PROCEDURE: ABDOMEN SINGLE VIEW 05/29/2025 REASON FOR EXAM: CONSTIPATION TECHNIQUE: Procedure Code: RADABD Modality: DX Procedure: ABDOMEN SINGLE VIEW COMPARISON: Pelvic x-ray 07/16/2024. FINDINGS: Bowel gas: Unremarkable bowel-gas pattern. Moderate amount of fecal load in the:. Calcifications: Unremarkable. Bones: No acute bony abnormalities. RAD/Abdomen Single View IMPRESSION: Unremarkable bowel-gas pattern. Reading Location: [id number]
--- NOTE | 2025-05-29 21:15 | EDS_ITS ---
HPI HPI - GI History of Present Illness Chief Complaint: Constipation Informant: patient Abdominal Pain/Flank Pain Onset: Today and Yesterday Context: Gradual Onset Timing: Continuous Current Severity: Moderate Maximum Severity: Moderate Worsened by: Nothing Relieved by: Nothing Nausea/Vomiting/Emesis GI Symptom: Negative for Nausea or Vomiting Diarrhea/Melena/Hematochezia GI Symptom: Positive for - (Constipation for 2 to 3 days.); Negative for Diarrhea, Melena or Hematochezia Onset: Days Associated Symptoms Associated Symptoms: Positive for - (Unable to urinate since before noon today.); Negative for Dysuria, Frequency, Hematuria or Urgency Narrative Narrative: 79-year-old female history of hypertension. Prior cholecystectomy hysterectomy and appendectomy. States has been constipated for 2 to 3 days. Prior history of the same earlier this year. She has tried enemas and laxatives at home without relief. Denies any melena or hematochezia. Denies any nausea or vomiting. Also states she has not been able to urinate since before noon today. Denies any dysuria or fever. Prior similar symptoms: Yes Recent Illness/Hospitalization: No PFSH PFSH Medical History Decreased radial pulse Right hand weakness Injury of right radial artery Obesity Superficial thrombophlebitis of left leg (08/2020) Hyperlipidemia Depression Venous insufficiency History of pulmonary embolus (PE) Anxiety GERD (gastroesophageal reflux disease) Hypothyroidism Essential hypertension Osteoarthritis Osteopenia Elevated d-dimer Home Medications Medication Instructions Recorded Last Taken Type losartan 50 mg tablet 50 mg PO DAILY BP 08/21/20 0 01/06/21 History albuterol sulfate 90 mcg/actuation 2 puff inhalation T ID PRN 12/21/20 Unknown History aerosol inhaler (ProAir HFA) Shortness Of Breath calcium 500 mg (as 1 tab PO DAILY vitamin 12/21 Unknown History carbonate)-vitamin D3 3.125 mcg (125 unit) tablet polyethylene glycol 3350 17 gram 17 g PO DAILY 1 Unknown History oral powder packet (Miralax) cyanocobalamin (vitamin B-12) 2,500 mcg PO DAILY vitam in 12/28/20 Unknown History 2,500 mcg tablet levothyroxine 125 mcg tablet 125 mcg PO DAILY 12/28/20 01/06/21 History pyridoxine (vitamin B6) 50 mg 50 mg PO DAILY 12/28/20 Unknown History capsule (Vitamin B-6) [id number] 250 mg-dha 90 1 cap PO DAILY 12/13 Unknown History mg-epa 160 [id number]-zeax capsule (Ocuvite Adult 50 Plus) vibegron 75 mg tablet (Gemtesa) 75 mg PO 12/13/22 Unkn own History albuterol sulfate 5 mg/mL(0.5 %) 2.5 mg (0.5 mL) inhal ation Q4H PRN 06/22/23 Unknown Rx solution for nebulization shortness of breath or wheez ing #600 mL benzonatate 200 mg capsule 200 mg PO TID PRN cough #20 caps 06/22/23 Unknown Rx dexamethasone 6 mg tablet 6 mg PO DAILY #7 tabs Unknown Rx guaifenesin 1,200 mg tablet, 1,200 mg PO Q12H #20 tabs 06/22/23 Unknown Rx extended release 12 hr ondansetron 4 mg disintegrating 4 mg PO Q8H PRN PRN Na usea #20 tabs 06/22/23 Unknown Rx tablet doxycycline hyclate 100 mg capsule 100 mg PO BID 05/18 Unknown History lidocaine 5 % topical patch 1 patch topical DAILY #15 ea 05/18/24 Unknown Rx (Lidoderm) omeprazole 40 mg capsule,delayed 40 mg PO QDAY #30 cap s 03/02/25 Unknown Rx release Allergy/AdvReac Type Severity Reaction Status Date / Time propoxyphene (From Allergy Unknown Nausea Verified 05/29/25 20:40 Darvocet-N 100) celecoxib (From Celebrex) Allergy Other Verified 05/29/25 20:40 meloxicam Allergy Other Verified 05/29/25 20:40 metaxalone (From Skelaxin) Allergy Other Verified 05/29/25 20:40 Penicillins (PCN) Allergy Hives Verified 05/29/25 20:40 Sulfa (Sulfonamide Allergy Hives Verified 05/29/25 20:40 Antibiotics) tolterodine (From Detrol) AdvReac dizzy Verified 05/29/25 20:40 blurred vision Family History Mother Diabetes Hypertension Heart disease Had cardiac mass and had thoracotomy to remove mass Father CAD (coronary artery disease), Onset Age: 80 CABG Myocardial infarction, Onset Age: 80 Surgical History S/P laparoscopic cholecystectomy History of left heart catheterization (01/06/21) History of colonoscopy with polypectomy (12/22/20) History of cystocele 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 Urinary retention. Constitutional Constitutional ED: Denies chills or fever(s) ENT ENT ED: Denies ear pain Cardiovascular Cardiovascular: Denies chest pain Respiratory/Chest Respiratory/Chest: Denies cough or dyspnea Gastrointestinal Gastrointestinal: Reports constipation; Denies abdominal pain, diarrhea, melena, nausea or vomiting Genitourinary Genitourinary ED: Denies dysuria or hematuria Musculoskeletal Musculoskeletal: Denies arthralgias Integumentary Denies abscess Psychiatric Psychiatric: Denies anxiety Endocrine Endocrinology: Denies polydipsia Hematologic/Lymphatic Hematologic/Lymphatic: Denies easy bleeding Allergic/Immunologic Allergic/Immunologic ED: Denies mouth swelling, tongue swelling or urticaria EXAM Physical Exam Narrative Exam Narrative: 79-year-old female vital signs are stable afebrile. No acute distress. H EENT exam pupils round react light. Moist rehemorrhage. Neck nontender no lymphadenopathy. Lungs clear to auscultation bilaterally. Heart regular rhythm rate about 85 no murmur. Chest wall ribs nontender. Abdomen soft nondistended normal bowel sounds without peritoneal signs. No signs of obstruction. No hernia or mass. No pulsatile mass. Moving all 4 extremities. Normal strength. Back nontender. Neurologically she is awake alert. Answering questions following commands. Const Vital Signs: 05/29/25 20:40 Temperature 98 F Temperature Source Oral Pulse Rate 87 Respiratory Rate 18 Blood Pressure 142/79 H Blood Pressure Mean 100 Pulse Ox 99 Oxygen Delivery Method Room Air MDM MDM MDM Narrative Medical decision making narrative: 79-year-old female complaining of constipation and urinary retention. Abdominal exam is completely nontender nondistended. KUB was obtained shows increased stool throughout her rectum and her entire colon. We will attempt a soapsuds enema to relieve that. She has manually disimpacting her is still to have a bunch of stool left in her rectum and colon. Also obtaining a bladder scan to see if she is having urinary retention. Bladder scan showed 350. Nurses attempted soapsuds enema patient had so much stool in her rectum they had to manually disimpact her first now they are attempting the enema. Repeat exam around 10 PM patient is feeling better after the manual disimpaction. She did have a lot more bowel movement after the enema. But she is like to go home and use the GoLytely at home. History & Record Review Discussion w/independent historian: Patient Additional record(s) reviewed:: Prior outpatient record, Prior ED visit and Prior labs Radiography Diagnostic Testing: Clinical Impression(s) from Imaging Studies KUB X-Ray 05/29/25 20:50 IMPRESSION: Unremarkable bowel-gas pattern. Reading Location: [facility] KUB, 2 films, single view interpreted by myself shows increased stool throughout the rectum and the entire colon. No air-fluid levels. No obstruction. Consistent with constipation. Discharge Plan Triage Chief Complaint: Constipation ED Provider: Munir Haskins Dx/Rx/DC Orders Clinical Impression: Constipation, Essential hypertension Instructions: ED Constipation (Adult) Prescriptions: No Action levothyroxine 125 mcg tablet 125 mcg PO DAILY cyanocobalamin (vitamin B-12) 2,500 mcg tablet 2,500 mcg PO DAILY Vitamin B-6 50 mg capsule 50 mg PO DAILY albuterol sulfate [ProAir HFA] 90 mcg/actuation HFA aerosol inhaler 2 puff inhalation TID PRN (Reason: Shortness Of Breath) polyethylene glycol 3350 [Miralax] 17 gram powder in packet 17 g PO DAILY calcium carbonate-vitamin D3 500 mg(1,250mg) -125 unit tablet 1 tab PO DAILY Gemtesa 75 mg tablet 75 mg PO Ocuvite Adult 50 Plus 250 mg (90 mg-160 mg) capsule 1 cap PO DAILY omeprazole 40 mg capsule,delayed release(DR/EC) 40 mg PO QDAY Qty: 30 3RF Rx Instructions: swallow whole; do not crush, chew, dissolve, cut, break losartan 50 MG tablet 50 mg PO DAILY albuterol sulfate 5 mg/mL solution for nebulization 2.5 mg inhalation Q4H PRN (Reason: shortness of breath or wheezing) Qty: 600 0RF dexamethasone 6 mg tablet 6 mg PO DAILY Qty: 7 0RF benzonatate 200 mg capsule 200 mg PO TID PRN (Reason: cough) Qty: 20 0RF guaifenesin 1,200 mg tablet extended release 12hr 1,200 mg PO Q12H Qty: 20 0RF ondansetron 4 mg tablet,disintegrating 4 mg PO Q8H PRN PRN (Reason: Nausea) Qty: 20 0RF doxycycline hyclate 100 mg capsule 100 mg PO BID lidocaine [Lidoderm] 5 % adhesive patch,medicated 1 patch topical DAILY Qty: 15 0RF Rx Instructions: leave on most painful area for up to 12 hrs Primary Care Provider: Esthela Newell Referrals: Esthela Newell, [employer] [Primary Care Provider, Internal Medicine] - 1-2 Days if not improving Activity Restrictions/Additional Instructions: Starting tomorrow morning use the GoLytely. You can drink an entire bottle at 1 time or a 10 ounce glass every 30 minutes until you start having bowel movements. Plenty of fluids, fruits, vegetables and fiber. Follow-up with your primary care provider if not improving or return if feeling worse. You should start urinating also if not return and we can place a catheter if need be. Print Language: Tamazight Disposition Disposition: Home, Self Care
[2025-05-29 22:10] VITALS: BP 142/79; PULSE 87; RESP 18; TEMP 36.6; O2SAT 99
[2025-05-29] MEDS: Electrolyte Solution/Peg's 4000 ML 2000 ML PO (22:40)
== END 2025-05-29 22:42 | disposition home or self-care (01) ==
PROVIDERS: Emergency Provider Emergency Medicine; PCP Nurse Practitioner Family; Visit Provider Emergency Medicine
DX: K59.00 Constipation, unspecified (principal); I10 Essential (primary) hypertension; Z79.899 Other long term (current) drug therapy
CPT/HCPCS: 74018; 99284